=== PATIENT | male | born 1950 | race Caucasian/White ===

== ENCOUNTER → 2018-01-06 | Day surgery (SDC) | payer OTHER ==
--- NOTE | 2017-12-31 15:40 | RAD REPORT ---
EXAM DESCRIPTION: RAD - Chest Pa And Lat (2 Views) - 12/31/2017 3:35 pm CLINICAL HISTORY: preop Chest pain. COMPARISON: Chest Single View dated 07/26/2016; CHEST SINGLE VIEW dated 08/13/2012 FINDINGS: The lungs are clear. The heart is normal in size. No displaced fractures. Sternotomy wires present. IMPRESSION: No acute or concerning finding suspected.
[2017-12-31 16:05] LABS: Absolute Lymphocytes (CBC) 3.4 K/uL (0.7-4.9); Absolute Monocytes 0.7 K/uL (0.1-1.3); Absolute Neutrophil 3.5 K/uL (1.8-8.0); Basophils % 0.4 % (0-1.3); Eosinophils % 2.3 % (0-4.4); Hematocrit 42.1 % (39.6-49.0); Lymphocytes % 44.2 % (15.3-44.8); MCH 32.8 pg (27.0-35.0); MPV 7.4 fL (7.6-11.3); Monocytes % 8.4 % (3.3-12.3); RBC Red Blood Cell Count 4.29 M/uL (4.33-5.43)
[2017-12-31 16:23] LABS: Potassium 4.2 mmol/L (3.5-5.1)
[~2018-01-06] MED LIST: CEFAZOLIN/SWI 1gm 0 GM/0 ML SYR ONE; FENTANYL CITR 250 MCG/5 ML ONE; GLYCOPYRROLATE 0.2 MG/ML SYR ONE; LIDOCAINE 2% MPF 5 ML VIAL ONE; MIDAZOLAM HCL 2 MG/2 ML INJ ONE; PROPOFOL 200 MG/20 ML VIAL IV ONE; ROCURONIUM 50 MG/5 ML VIAL IV ONE; Ringers Lactate 1,000 ML IV ONE
[2018-01-06 07:09] LABS: Protime INR 1.89
== END | disposition home or self-care (01) ==
LOC: OR 06:28
PROVIDERS: ATTEND Surgery
DX: K43.2 Incisional hernia without obstruction or gangrene (principal); K42.9 Umbilical hernia without obstruction or gangrene; Z53.8 Procedure and treatment not carried out for other reasons
CPT/HCPCS: 36415; 71046; 80048; 85025; 85610; J0690; J2250

== ENCOUNTER 2018-01-08 11:25 | Day surgery (SDC) | payer OTHER ==
[2018-01-08 12:12] LABS: Protime INR 1.48
[2018-01-08] MEDS ORDERED: Ringers Lactate 1,000 ML IV ONE ×2 (12:27→14:08)
[2018-01-08] MEDS ORDERED: LIDOCAINE 2% MPF 5 ML VIAL ONE (12:35)
[2018-01-08] MEDS ORDERED: PROPOFOL 200 MG/20 ML VIAL IV ONE (12:35)
[2018-01-08] MEDS ORDERED: FENTANYL CITR 100 MCG/2 ML ONE (12:35)
[2018-01-08] MEDS ORDERED: MIDAZOLAM HCL 2 MG/2 ML INJ ONE (12:37)
[2018-01-08] MEDS ORDERED: NEOSTIGMINE 1 MG/ML -5 ML SYRINGE ONE (12:39)
[2018-01-08] MEDS ORDERED: GLYCOPYRROLATE 0.2 MG/ML SYR ONE (12:39)
[2018-01-08] MEDS ORDERED: ROCURONIUM 50 MG/5 ML VIAL IV ONE (12:39)
[2018-01-08] MEDS ORDERED: CEFAZOLIN/SWI 1gm 1 GM/10 ML SYR ONE (12:43)
--- NOTE | 2018-01-08 14:01 | P.BOP ---
Preoperative diagnosis: incisional tender ventral hernia, incarcerated umbilical hernia, Postoperative diagnosis: same Primary procedure: 1. Open repair of incisional tender ventral hernia with mesh Secondary procedure: 2. Open repair of incarcerated umbilical hernia Estimated blood loss: <10cc Specimen: hernia sac Findings: as above Complications: None Implants: ventralex mesh Transferred to: Recovery Room Condition: Good
[2018-01-08] MEDS: MEPERIDINE HCL 50 MG/ML AMP ONE ×4 (14:02→14:25)
[2018-01-08] MEDS ORDERED: HYDROCODONE/APAP 5/325 MG TAB ONE (15:24)
--- NOTE | 2018-01-09 01:46 | DS ---
Date of Discharge: 01/08/2018 Diagnoses: Incisional upper ventral tender hernia and incarcerated umbilical hernia. Procedures: 1.Open repair of incisional tender ventral hernia with mesh. 2.Open repair of incarcerated umbilical hernia. Disposition: Home. Activity: As tolerated. No heavy lifting. Discharge Instructions: Follow up in my office 1 week. Call for appointment, [phone]. Keep area d ry for 48 hours, then may shower. Use abdominal binder. The patient was advised about losing weight . The patient already has the anticoagulation protocols he is going to follow. He was advised to fo llow up also with primary doctor as soon as possible to follow up his INR [facility]. [facility] AYALA/ANTOINETTE Voice ID: [id number] Report ID: [id number]
--- NOTE | 2018-01-09 01:46 | OP ---
Date of Procedure: 01/08/2018 Surgeon: Marques Mclaughlin MD Preoperative Diagnoses: Incisional and tender upper ventral hernia and also incarcerated umbilical h ernia. Postoperative Diagnoses: Incisional and tender upper ventral hernia and also incarcerated umbilical hernia. Procedures: 1.Open repair of incisional upper tender ventral hernia with mesh. 2.Open repair of incarcerated umbilical hernia. Specimen: Hernia sac. Complications: None. Implant: Ventralex mesh. Indications: This is a case of a 67-year-old patient, comes to us with a 2 hernias, one in the upper ventral region and other one in the periumbilical region. The benefits, alternatives, and risks of repair of each one of them was fully explained which include, but are not limited to infection, bleed ing, damage to adjacent structures, anesthesia complication, recurrence, OK, and even . He also understands this may not relieve any symptoms. He might need more than one surgical intervention. He was explained the importance also of losing some weight and not doing heavy lifting. He was expla ined the pros and cons of mesh placement. That was discussed until all of the questions were answere d to his satisfaction, and he the allow me to use mesh. The patient is on anticoagulation using Coum huma and Lovenox cross over. He has been holding that on Thursday. We have to hold the case since he is still anticoagulated today. He is better. So, we proceed with the surgery. Description Of Procedure: The patient was brought to the operating room, placed in supine position. Anesthesia was done without complication. Abdominal area was prepped and draped in a sterile fashio n. Local anesthesia was applied, followed by sharp incision of the skin in the ventral region. The patient has a previous incision in that area. So, we reopened that area, removed the scar tissue, op ened the hernia sac, found incarcerated omentum that was suture ligated. The rest of the omentum ret racted back into the abdominal cavity after fully inspected and making sure there was no bleeding. T he hernia sac was removed; and then due to the quality of the edges and inability to close that compl etely, we put a Ventralex mesh intraperitoneally with the strap coming through the incision. That me sh was secured to the fascia using #1 Prolene in multiple locations. The straps were removed. Then, the fascia was closed in a [id number] fashion with #1 Prolene multiple times. The area was irr igated. Subcutaneous incision was closed with 3-0 chromic and skin with alverto. The periumbilical region was also fixed at the same time. We made a periumbilical incision. The incision was carried down to fascia. The hernia sac was identified and removed from umbilical skin. Incarcerated omentum was removed from the umbilical skin; and after fully inspecting and making sure there was no bleedin g, was later retracted back into the abdominal cavity. The hernia sac was removed, and the fascia ed ges looked strong enough to hold stitches. So, we did not have to use mesh. We just closed this sim ple with a [id number] fashion #1 Vicryl multiple times. The patient tolerated the procedure wel l. The area was closed with 3-0 chromic and alverto. The patient was sent to recovery in stable con dition. AYALA/ANTOINETTE Voice ID: [id number] Report ID: [id number]
== END 2018-01-08 16:23 | disposition home or self-care (01) ==
LOC: OR 11:25
PROVIDERS: ATTEND Surgery
PROC: 0WUF0JZ Supplement Abdominal Wall with Synthetic Substitute, Open Approach (ICD-10-PCS; principal; 2018-01-08 12:30)
PROC: 0WQF0ZZ Repair Abdominal Wall, Open Approach (ICD-10-PCS; 2018-01-08 12:30)
DX: K43.2 Incisional hernia without obstruction or gangrene (principal); K42.0 Umbilical hernia with obstruction, without gangrene; I10 Essential (primary) hypertension
CPT/HCPCS: 36415; 85610; 85730; 88302; J0690; J2175; J2250; J2710; J3010

== ENCOUNTER 2018-01-10 02:29 | Inpatient (IN) | payer OTHER ==
[2018-01-10] MEDS ORDERED: NA CHLORIDE 0.9% 1,000 ML ONE ×3 (02:54→03:40)
[2018-01-10] MEDS ORDERED: NA CHLORIDE 0.9% 100 ML IV ONE ×2 (03:42→03:44)
[2018-01-10 03:45] LABS: Absolute Lymphocytes (CBC) 2.2 K/uL (0.7-4.9); Absolute Monocytes 0.6 K/uL (0.1-1.3); Basophils % 0.3 % (0-1.3); Hematocrit 30.5 % (39.6-49.0); MCH 32.9 pg (27.0-35.0); MCV 100.4 fL (80-100); MPV 8.9 fL (7.6-11.3); Monocytes % 4.9 % (3.3-12.3); Protime INR 1.85; RBC Red Blood Cell Count 3.03 M/uL (4.33-5.43)
[2018-01-10] MEDS ORDERED: FENTANYL CITR 100 MCG/2 ML ONE (04:26)
[2018-01-10] MEDS ORDERED: NA CHLORIDE 0.9% 200 ML IV ONE (04:33)
[2018-01-10 04:45] LABS: ALT/SGPT 25 U/L (12-78); AST/SGOT 26 U/L (15-37); Albumin 3.4 g/dL (3.4-5.0); Alkaline Phosphatase 61 U/L (45-117); BUN Blood Urea Nitrogen 23 mg/dL (7-18); Bicarbonate 17 mmol/L (21-32); Bilirubin Direct 0.2 mg/dL (0-0.2); Bilirubin Total 0.8 mg/dL (0.2-1.0); Glucose Level 232 mg/dL (74-106); Lipase 239 U/L (73-393); Magnesium 2.6 mg/dL (1.8-2.4); NT PRO-BNP 563 pg/mL (<125); Protein, Total 6.8 g/dL (6.4-8.2); Sodium Level 137 mmol/L (136-145); Troponin (Emerg Dept Use Only) < 0.02 ng/mL (0.0-0.045)
[2018-01-10] MEDS ORDERED: ONDANSETRON 4 MG/2 ML VIAL ONE ×2 (05:02→06:26)
[2018-01-10] MEDS ORDERED: FENTANYL CITR 100 MCG/2 ML IV PRN ×3 (05:08→09:25)
--- NOTE | 2018-01-10 05:13 | ER ---
Nurse's Notes [facility] Name: Abdirizak Diaz Age: 67 yrs Sex: Male : 1950 Arrival Date: 01/10/2018 Time: 02:30 Bed 4 Private MD: Savage Kelsey H Diagnosis: Hemoperitoneum Presentation: 01/10 02:32 Presenting complaint: states: that pt started to have abd pain at midnight. Has fc also been vomiting brown liquid since yesterday and is pale/clammy. Dr Mclaughlin did hernia repair on 01/08. Pts last BM was morning of 01/08. Transition of care: patient was not received from another setting of care. Onset of symptoms was January 10, 2018 at 00:00. Risk Assessment: Do you want to hurt yourself or someone else? Patient reports no desire to harm self or others. Initial Sepsis Screen: Does the patient meet any 2 criteria? No. Patient's initial sepsis screen is negative. Does the patient have a suspected source of infection? No. Patient's initial sepsis screen is negative. Care prior to arrival: None. 02:32 Method Of Arrival: Wheelchair 02:32 Acuity: ERIBERTO 2 fc Historical: - Allergies: 02:53 Aspirin; 02:53 Keppra; fc - Home Meds: 02:53 Randolph 5-325 mg Oral tab 2 tabs every 4 hours [Active]; Coumadin Oral 1 mg on fc Tues/Thurs/Sat/Sun and 2 mg on Mon/Wed/Fri [Active]; 04:48 Lovenox 80 mg/0.8 mL subcutaneous syrg every 12 hours [Active]; Vimpat 200 mg oral tab fc 1 tab 2 times per day [Active]; Lamictal 200 mg oral tab 1 tab 2 times per day [Active]; Avapro Oral 75 mg daily [Active]; finasteride 5 mg oral tab 1 tab once daily [Active]; simvastatin 80 mg Oral tab daily [Active]; Claritin 10 mg Oral tab 1 tab once daily [Active]; - PMHx: 02:53 High Cholesterol; Seizures; Hypertension; fc - PSHx: 02:53 MECHANICAL HEART VALVE; Hernia repair; fc - Immunization history:: Last tetanus immunization: up to date Flu vaccine is up to date. - Social history:: Smoking status: Patient/guardian denies using tobacco, Patient/guardian denies using alcohol, street drugs. - Ebola Screening: : Patient negative for fever greater than or equal to 101.5 degrees Fahrenheit, and additional compatible Ebola Virus Disease symptoms Patient denies exposure to infectious person Patient denies travel to an Ebola-affected area in the 21 days before illness onset. Screenin:32 Abuse screen: Denies threats or abuse. Nutritional screening: No deficits noted. fc Tuberculosis screening: No symptoms or risk factors identified. Fall Risk Fall in past 12 months (25 points). Secondary diagnosis (15 points) seizures, IV access (20 points). Ambulatory Aid- None/Bed Rest/Nurse Assist (0 pts). Gait- Weak (10 pts.). Mental Status- Overestimates/Forgets Limitations (15 pts.). Total Norman Fall Scale indicates High Risk Score (45 or more points). Fall prevention measures have been instituted. Side Rails Up X 2 Placed Close to Nursing Station Frequent Obs/Assessments Occuring Family Present and informed to notify staff if the need to leave the bedside As available patient and family educated on Fall Prevention Program and Strategies. Assessment: 02:35 General: Appears distressed, uncomfortable, Behavior is appropriate for age, agitated. aa1 Pain: Complains of pain in abdomen Pain currently is 10 out of 10 on a pain scale. Quality of pain is described as pressure, sharp, Pain began 3 hours ago. Is continuous. Neuro: Level of Consciousness is awake, alert, obeys commands, Oriented to person, place, time, situation, Moves all extremities. Speech is normal. Cardiovascular: Denies chest pain, shortness of breath, Heart tones S1 S2 present Rhythm is regular. Respiratory: Airway is patent Respiratory effort is even, unlabored, Respiratory pattern is tachypnea. GI: Abdomen is distended, Bowel sounds diminished in abdomen diffusely Abdomen is tender to palpation X 4 quads. Reports lower abdominal pain, upper abdominal pain, nausea, vomiting. : No signs and/or symptoms were reported regarding the genitourinary system. EENT: No signs and/or symptoms were reported regarding the EENT system. Derm: Skin is intact, is healthy with good turgor, Skin is clammy, Skin is pale, Skin temperature is cool. Musculoskeletal: Circulation, motion, and sensation intact. Capillary refill is sluggish, in bilateral fingers. toes. 03:15 Reassessment: Patient appears in no apparent distress at this time. No changes from aa1 previously documented assessment. Patient and/or family updated on plan of care and expected duration. Pain level reassessed. Pt consented to receive blood products at this time. Will initiate transfusion once blood product received. 04:00 Reassessment: Patient appears in no apparent distress at this time. Patient and/or aa1 family updated on plan of care and expected duration. Pain level reassessed. Pt skin color improved, no longer cool \\T\\ clammy. Appears less uncomfortable. Dr. Hoskins at bedside assessing pt Patient states symptoms have improved. 04:45 Reassessment: Patient appears in no apparent distress at this time. No changes from aa1 previously documented assessment. Patient and/or family updated on plan of care and expected duration. Pain level reassessed. \\T\\ son remain at bedside. FFP \\T\\ platelets infusing. Awaiting bed assignment. 05:34 Reassessment: Patient appears in no apparent distress at this time. No changes from aa1 previously documented assessment. Patient and/or family updated on plan of care and expected duration. Pain level reassessed. Pt to be admitted to ICU; awaiting bed assignment. Vital Signs: 02:32 BP 83 / 49; Pulse 84; Resp 18; Temp 97.5; Pulse Ox 94% on R/A; Weight 99.79 kg (R); fc Height 5 ft. 11 in. (180.34 cm) (R); Pain 01/06; 02:48 BP 69 / 48; Pulse 83; Resp 20; Pulse Ox 95% on R/A; aa1 03:15 BP 89 / 59; Pulse 92; Resp 26; Pulse Ox 90% on R/A; aa1 03:57 BP 92 / 59 LA Supine (auto/reg); Pulse 84 MON; Resp 30 S; Pulse Ox 97% on 3 lpm NC; aa1 Pain 10; 04:20 BP 102 / 57; Pulse 80; Resp 28; Temp 97.0; Pulse Ox 95% on 3 lpm NC; aa1 04:45 BP 87 / 58; Pulse 78; Resp 24; Temp 97.1; Pulse Ox 94% on 3 lpm NC; aa1 05:05 BP 91 / 61; Pulse 81; Resp 22; Temp 97.2; Pulse Ox 94% on 3 lpm NC; aa1 05:26 BP 93 / 61; Pulse 78; Resp 20; Temp 97.2; Pulse Ox 96% on 3 lpm NC; aa1 06:08 BP 111 / 74; Pulse 78; Resp 20; Pulse Ox 95% on 3 lpm NC; aa1 06:34 BP 94 / 68; Pulse 84; Resp 20; Temp 98.0; Pulse Ox 95% on 3 lpm NC; aa1 07:20 BP 115 / 74; Pulse 85; Resp 26 S; Temp 98.3(C); Pulse Ox 96% on 3 lpm NC; sg 02:32 Body Mass Index 30.68 (99.79 kg, 180.34 cm) fc 02:48 MD at bedside and aware of v/s aa1 ED Course: 02:30 Patient arrived in ED. am2 02:31 Savage Kelsey DO is Private Physician. am2 02:32 Arm band placed on Patient placed in an exam room, on a stretcher. fc 02:32 Patient has correct armband on for positive identification. Placed in gown. Bed in low fc position. Call light in reach. Side rails up X2. personnel monitor on. Pulse ox on. NIBP on. 02:32 No provider procedures requiring assistance completed. fc 02:33 Thomas Vaughn MD is Attending Physician. gs 02:40 Inserted saline lock: 20 gauge in right antecubital area, using aseptic technique. fc ,using aseptic technique. by [employer]. 02:42 Inserted saline lock: 18 gauge in left antecubital area, using aseptic technique. fc ,using aseptic technique. per Annmarie MORALES. 02:45 EKG done, by ED staff, reviewed by Thomas Vaughn MD. fc 02:48 Triage completed. fc 03:11 X-ray completed. Portable x-ray completed in exam room. Patient tolerated procedure mh1 poorly. 03:11 Chest Single View In Process Unspecified. EDMS 03:29 Stone Protocol In Process Unspecified. EDMS 03:34 Note: Spoke with Kang at [facility] to ask for a "STAT read." He advised me that as soon as kw1 the images complete transmitting the study will be read.. 03:50 Oxygen administration via nasal cannula \\T\\ 3L/min. aa1 04:10 Rosales cath inserted, using sterile technique, 16 Fr., by injection molding process technician, balloon inflated, to aa1 gravity drainage, urine specimen collected. returned dawna urine. 04:35 One-on-one care X 120 minutes. aa1 05:08 Annmarie Lim, RN is Primary Nurse. aa1 05:12 Marques Mclaughlin MD is Hospitalizing Provider. gs 05:46 Patient admitted, IV remains in place. aa1 Administered Medications: 02:54 Drug: NS 0.9% 1000 ml Route: IV; Rate: 1 bolus; Site: right antecubital; jd3 03:30 Follow up: IV Status: Completed infusion aa1 03:10 Drug: NS 0.9% 1000 ml Route: IV; Rate: 1 bolus; Site: left antecubital; aa1 03:40 Follow up: IV Status: Completed infusion aa1 04:25 Drug: fentaNYL (PF) 25 mcg Route: IVP; Site: left antecubital; aa1 05:45 Follow up: Response: No adverse reaction; Pain is unchanged, physician notified aa1 05:00 Drug: Zofran 4 mg Route: IVP; Site: right antecubital; aa1 06:10 Follow up: Response: No adverse reaction; Nausea unchanged aa1 06:23 Drug: fentaNYL (PF) 50 mcg Route: IVP; Site: left antecubital; aa1 06:24 Drug: Zofran 4 mg Route: IVP; Site: left antecubital; aa1 Outcome: 05:13 Decision to Hospitalize by Provider. 07:40 Admitted to ICU family with patient, via stretcher, room 1, with oxygen, with chart, sg Report called to Estefani MORALES 07:40 Condition: stable 07:40 Instructed on the need for admit, safety practices, Demonstrated understanding of instructions. 07:56 Patient left the ED. iw Signatures: Dispatcher [employer] EDMS Chuckie Gaffney RN RN sg Annmarie Lim, RN RN aa1 Mitzy Garrison 1 Saba Alvarado RN RN fc Williams, Irene, RN RN Baldemar Marino ds4 Zonia Herring am2 Thomas Vaughn MD MD Doug Ruvalcaba RN RN jd3 Wilhelm, Kimberly kw1 Corrections: (The following items were deleted from the chart) 02:51 02:40 Inserted saline lock: 22 gauge in right antecubital area, using aseptic fc technique. ,using aseptic technique. by [employer] fc 02:59 02:32 BP 83 / 49; Pulse 84bpm; Resp 18bpm; Pulse Ox 94% RA; 99.79 kg Reported; Height 5 fc ft. 11 in. Reported; BMI: 30.6; Pain 10/10; fc 04:48 02:53 Home Meds: Lovenox Sub-Q every 12 hours; fc fc 04:48 02:53 Home Meds: Vimpat oral oral; [facility] 04:48 02:53 Home Meds: Lamictal Oral; [facility] 05:33 03:57 BP 92 / 59 Supine Auto L Arm Regular; Pulse 84bpm; MonitorResp 30bpm; aa1 Spontaneous; Pulse Ox 97% RA; Pain 10/10; ds4 06:41 04:00 Reassessment: Patient appears in no apparent distress at this time. Patient aa1 and/or family updated on plan of care and expected duration. Pain level reassessed. Pt skin color improved, no longer cool \\T\\ clammy. Appears less uncomfortable Patient states symptoms have improved. aa1
--- NOTE | 2018-01-10 05:13 | EDPHYS ---
Physician Documentation [facility] Name: Abdirizak Diaz Age: 67 yrs Sex: Male : 1950 Arrival Date: 01/10/2018 Time: 02:30 Bed 4 Private MD: Savage Kelsey H ED Physician Thomas Vaughn HPI: 01/10 05:00 This 67 yrs old Male presents to ER via Wheelchair with complaints of gs Abdominal Pain, Vomiting. 05:00 The patient presents with abdominal pain abdominal distention. Onset: The gs symptoms/episode began/occurred yesterday. Associated signs and symptoms: Pertinent positives: nausea and vomiting. The symptoms are described as crampy, sharp. Modifying factors: The symptoms are alleviated by nothing, the symptoms are aggravated by nothing. Severity of pain: At its worst the pain was severe in the emergency department the pain is unchanged. The patient has not experienced similar symptoms in the past. surgery dr prieto Thursday hernia repair, on lovenox for heart valve restarted coumadin. now with low bp and ab pain. Historical: - Allergies: 02:53 Aspirin; fc 02:53 Keppra; fc - Home Meds: 02:53 Custer 5-325 mg Oral tab 2 tabs every 4 hours [Active]; Coumadin Oral 1 mg on fc Tues/Thurs/Sat/Sun and 2 mg on Mon/Wed/Fri [Active]; 04:48 Lovenox 80 mg/0.8 mL subcutaneous syrg every 12 hours [Active]; Vimpat 200 mg oral tab fc 1 tab 2 times per day [Active]; Lamictal 200 mg oral tab 1 tab 2 times per day [Active]; Avapro Oral 75 mg daily [Active]; finasteride 5 mg oral tab 1 tab once daily [Active]; simvastatin 80 mg Oral tab daily [Active]; Claritin 10 mg Oral tab 1 tab once daily [Active]; - PMHx: 02:53 High Cholesterol; Seizures; Hypertension; fc - PSHx: 02:53 MECHANICAL HEART VALVE; Hernia repair; fc - Immunization history:: Last tetanus immunization: up to date Flu vaccine is up to date. - Social history:: Smoking status: Patient/guardian denies using tobacco, Patient/guardian denies using alcohol, street drugs. - Ebola Screening: : Patient negative for fever greater than or equal to 101.5 degrees Fahrenheit, and additional compatible Ebola Virus Disease symptoms Patient denies exposure to infectious person Patient denies travel to an Ebola-affected area in the 21 days before illness onset. ROS: 05:00 All other systems are negative. gs Exam: 05:00 Head/Face: Normocephalic, atraumatic. Eyes: Pupils equal round and reactive to light, gs extra-ocular motions intact. Lids and lashes normal. Conjunctiva and sclera are non-icteric and not injected. Cornea within normal limits. Periorbital areas with no swelling, redness, or edema. ENT: Nares patent. No nasal discharge, no septal abnormalities noted. Tympanic membranes are normal and external auditory canals are clear. Oropharynx with no redness, swelling, or masses, exudates, or evidence of obstruction, uvula midline. Mucous membranes moist. Neck: Trachea midline, no thyromegaly or masses palpated, and no cervical lymphadenopathy. Supple, full range of motion without nuchal rigidity, or vertebral point tenderness. No Meningismus. Chest/axilla: Normal chest wall appearance and motion. Nontender with no deformity. No lesions are appreciated. 05:00 Cardiovascular: Regular rate and rhythm with a normal S1 and S2. No gallops, murmurs, or rubs. Normal PMI, no JVD. No pulse deficits. 05:00 Respiratory: Lungs have equal breath sounds bilaterally, clear to auscultation and percussion. No rales, rhonchi or wheezes noted. No increased work of breathing, no retractions or nasal flaring. Back: No spinal tenderness. No costovertebral tenderness. Full range of motion. MS/ Extremity: Pulses equal, no cyanosis. Neurovascular intact. Full, normal range of motion. Neuro: Awake and alert, GCS 15, oriented to person, place, time, and situation. Cranial nerves II-XII grossly intact. Motor strength 5/5 in all extremities. Sensory grossly intact. Cerebellar exam normal. Normal gait. 05:00 Constitutional: The patient appears alert, awake, in obvious distress, severely distressed. 05:00 Constitutional: The patient appears pale. 05:00 ECG was reviewed by the Attending Physician. 05:00 Abdomen/GI: Inspection: distension, that is severe, Palpation: moderate abdominal tenderness, in all quadrants, rebound tenderness, is appreciated in the right lower quadrant and left lower quadrant. 05:00 Skin: Appearance: Color: pale. Vital Signs: 02:32 BP 83 / 49; Pulse 84; Resp 18; Temp 97.5; Pulse Ox 94% on R/A; Weight 99.79 kg (R); fc Height 5 ft. 11 in. (180.34 cm) (R); Pain 10; 02:48 BP 69 / 48; Pulse 83; Resp 20; Pulse Ox 95% on R/A; aa1 03:15 BP 89 / 59; Pulse 92; Resp 26; Pulse Ox 90% on R/A; aa1 03:57 BP 92 / 59 LA Supine (auto/reg); Pulse 84 MON; Resp 30 S; Pulse Ox 97% on 3 lpm NC; aa1 Pain 10/10; 04:20 BP 102 / 57; Pulse 80; Resp 28; Temp 97.0; Pulse Ox 95% on 3 lpm NC; aa1 04:45 BP 87 / 58; Pulse 78; Resp 24; Temp 97.1; Pulse Ox 94% on 3 lpm NC; aa1 05:05 BP 91 / 61; Pulse 81; Resp 22; Temp 97.2; Pulse Ox 94% on 3 lpm NC; aa1 05:26 BP 93 / 61; Pulse 78; Resp 20; Temp 97.2; Pulse Ox 96% on 3 lpm NC; aa1 06:08 BP 111 / 74; Pulse 78; Resp 20; Pulse Ox 95% on 3 lpm NC; aa1 06:34 BP 94 / 68; Pulse 84; Resp 20; Temp 98.0; Pulse Ox 95% on 3 lpm NC; aa1 07:20 BP 115 / 74; Pulse 85; Resp 26 S; Temp 98.3(C); Pulse Ox 96% on 3 lpm NC; sg 02:32 Body Mass Index 30.68 (99.79 kg, 180.34 cm) 02:48 MD at bedside and aware of v/s aa1 Procedures: 05:00 Ultrasound: Type: Fast exam, performed by the emergency department physician, + for gs fluid. MDM: 02:47 Patient medically screened. gs 05:00 Differential diagnosis: AAA, bowel obstruction, Peritonitis, hemoperitoneum. Data gs reviewed: vital signs, nurses notes, old medical records, lab test result(s), EKG, radiologic studies. Counseling: I had a detailed discussion with the patient and/or guardian regarding: the historical points, exam findings, and any diagnostic results supporting the discharge/admit diagnosis, the need for further work-up and treatment in the hospital. Physician consultation: Marques Prieto MD regarding admission, patient's condition, would like consultation with saykristen he will call dr viveros to come see pt in ed.. 01/10 02:49 Order name: Basic Metabolic Panel 01/10 02:49 Order name: CBC with Diff 01/10 02:49 Order name: LFT's 01/10 02:49 Order name: Magnesium 01/10 02:49 Order name: NT PRO-BNP 01/10 02:49 Order name: PT-INR; Complete Time: 04:09 01/10 02:49 Order name: Troponin (emerg Dept Use Only); Complete Time: 05:13 01/10 02:49 Order name: Lipase; Complete Time: 05:13 01/10 02:49 Order name: Blood Culture* 01/10 02:49 Order name: Lactate; Complete Time: 04:09 01/10 03:04 Order name: Type And Screen 01/10 03:18 Order name: Basic Metabolic Panel; Complete Time: 05:13 [facility] 01/10 03:18 Order name: CBC with Automated Diff; Complete Time: 04:09 ED[facility] 01/10 03:18 Order name: Liver (Hepatic) Function; Complete Time: 05:13 [facility] 01/10 03:18 Order name: Magnesium; Complete Time: 05:13 ED[facility] 01/10 03:18 Order name: NT PRO-BNP; Complete Time: 05:13 [facility] 01/10 03:31 Order name: Packed RBC Leukored -1 [facility] 01/10 03:31 Order name: RBC Leukored Pheresis [facility] 01/10 03:55 Order name: Fresh Frozen Plasma [facility] 01/10 03:55 Order name: Platelets, Leukored Pheresis [facility] 01/10 03:56 Order name: ABO/RH no charge; Complete Time: 04:09 [facility] 01/10 05:48 Order name: Hemoglobin aa1 01/10 05:48 Order name: Hematocrit aa1 01/10 06:09 Order name: CBC with Diff ms 01/10 06:09 Order name: PT-INR ms 01/10 06:09 Order name: Lipase ms 01/10 06:10 Order name: Ptt, Activated ms 01/10 06:16 Order name: Miscellaneous Test Lab EDMS 01/10 06:45 Order name: CBC with Automated Diff ED[facility] 01/10 07:07 Order name: Comprehensive Metabolic Panel ED[facility] 01/10 02:49 Order name: EKG; Complete Time: 03:19 01/10 02:49 Order name: Cardiac monitoring; Complete Time: 02:54 gs 01/10 02:49 Order name: EKG - Nurse/Tech; Complete Time: 02:54 gs 01/10 02:49 Order name: IV Saline Lock; Complete Time: 02:54 01/10 02:49 Order name: Labs collected and sent; Complete Time: 02:55 01/10 02:49 Order name: O2 Per Protocol; Complete Time: 02:54 01/10 02:49 Order name: O2 Sat Monitoring; Complete Time: 02:54 01/10 02:49 Order name: Oxygen; Complete Time: 02:53 01/10 03:09 Order name: Chest Single View EDMS 01/10 03:12 Order name: Stone Protocol EDMS 01/10 04:34 Order name: CONS Physician Consult EDMS 01/10 07:07 Order name: Lipase EDMS 01/10 07:14 Order name: Lactate Sepsis 2 HR Follow-up EDMS 01/10 07:30 Order name: Protime (+INR) EDMS 01/10 07:30 Order name: PTT, Activated Partial Thromb EDMS EC:00 Rate is 82 beats/min. Rhythm is regular. [place] interval is normal. QRS interval is normal. gs T waves are Flattened. No ST changes noted. Clinical impression: NSR w/ Non-specific ST/T Changes and Abnormal EKG without significant change. Interpreted by me. Administered Medications: 02:54 Drug: NS 0.9% 1000 ml Route: IV; Rate: 1 bolus; Site: right antecubital; jd3 03:30 Follow up: IV Status: Completed infusion aa1 03:10 Drug: NS 0.9% 1000 ml Route: IV; Rate: 1 bolus; Site: left antecubital; aa1 03:40 Follow up: IV Status: Completed infusion aa1 04:25 Drug: fentaNYL (PF) 25 mcg Route: IVP; Site: left antecubital; aa1 05:45 Follow up: Response: No adverse reaction; Pain is unchanged, physician notified aa1 05:00 Drug: Zofran 4 mg Route: IVP; Site: right antecubital; aa1 06:10 Follow up: Response: No adverse reaction; Nausea unchanged aa1 06:23 Drug: fentaNYL (PF) 50 mcg Route: IVP; Site: left antecubital; aa1 06:24 Drug: Zofran 4 mg Route: IVP; Site: left antecubital; aa1 Disposition: 01/10/18 05:13 Hospitalization ordered by Marques Prieto for Inpatient Admission. Preliminary diagnosis is Hemoperitoneum. - Bed requested for Intensive Care Unit. - Status is Inpatient Admission. iw - Condition is Stable. - Problem is new. - Symptoms have improved. UTI on Admission? No Critical care time excluding procedures: 05:00 Critical care time: Bedside Care: 10 minutes, Consultation: 10 minutes, Family gs Intervention: 10 minutes. Total time: 30 minutes Signatures: Dispatcher [employer] EDMS Annmarie Lim RN RN aa1 Saba Alvarado RN RN fc Williams, Irene, RN RN iw Solis, Maria ms Starr, Gregory, MD MD gs Davies, Jonathon, RN RN jd3 Corrections: (The following items were deleted from the chart) 03:25 03:19 Chest Single View+RAD.RAD.BRZ ordered. EDMS EDMS 03:37 03:19 Stone Protocol+CT.RAD.BRZ ordered. EDMS EDMS 04:48 02:53 Home Meds: Lovenox Sub-Q every 12 hours; fc fc 04:48 02:53 Home Meds: Vimpat oral oral; fc fc 04:48 02:53 Home Meds: Lamictal Oral; fc fc 06:44 05:13 Hospitalization Ordered by Marques Prieto MD for Inpatient Admission. Preliminary ms diagnosis is Hemoperitoneum. Bed requested for Intensive Care Unit. Status is Inpatient Admission. Condition is Stable. Problem is new. Symptoms have improved. UTI on Admission? No. gs 07:56 06:44 01/10/2018 05:13 Hospitalization Ordered by Marques Prieto MD for Inpatient iw Admission. Preliminary diagnosis is Hemoperitoneum. Bed requested for Intensive Care Unit. Status is Inpatient Admission. Condition is Stable. Problem is new. Symptoms have improved. UTI on Admission? No. ms
[2018-01-10 06:43] LABS: Absolute Lymphocytes (CBC) 1.4 K/uL (0.7-4.9); Absolute Monocytes 0.9 K/uL (0.1-1.3); Absolute Neutrophil 11.1 K/uL (1.8-8.0); Basophils % 0.1 % (0-1.3); Hematocrit 28.9 % (39.6-49.0); Lymphocytes % 10.3 % (15.3-44.8); MCH 32.5 pg (27.0-35.0); MCV 95.2 fL (80-100); MPV 7.7 fL (7.6-11.3); Monocytes % 6.7 % (3.3-12.3); RBC Red Blood Cell Count 3.04 M/uL (4.33-5.43)
[2018-01-10 06:58] LABS: Protime INR 1.59
[2018-01-10 07:07] LABS: Albumin 3.2 g/dL (3.4-5.0); Bilirubin Total 0.7 mg/dL (0.2-1.0); Potassium 4.5 mmol/L (3.5-5.1); Protein, Total 6.3 g/dL (6.4-8.2)
--- NOTE | 2018-01-10 08:07 | P.CNS ---
Date of Consult: 01/10/18 Reason for Consult: Medical management Requesting Physician: Jessee Hoskins Chief Complaint: HEMOPERITONEUM History of Present Illness: Patient is a 67-year-old gentleman who came into the hospital with a hemoperitoneum. Patient recently had a hernia repair times to by General surgery. Afterwards patient had pain out of proportion to what he was expecting. He came into the emergency room and was told that this was most likely related to the hemoperitoneum. Patient is on fentanyl but will need more aggressive intervention. Will continue with aggressive IV hydration. Will need to continue monitoring H&H. We have given 2 units of packed red blood cells along with FFPs and platelet count. Hopefully this addresses the bleeding and we can work on stabilizing the patient and her care. Continue with prior treatments as listed on medications. Allergies levetiracetam [From Kera] Allergy (Verified 01/10/18 06:11) doesnt work aspirin Adverse Reaction (Intermediate, Verified 01/10/18 06:11) TAKES COUMADIN Home Medications: Ascorbic Acid [Vitamin C] 1,000 mg PO DAILY 12/31/17 Cholecalciferol (Vitamin D3) [Vitamin D3] 2,000 unit PO DAILY 12/31/17 Codeine/APAP [Tylenol W/Codeine #3 tab] 1 tab PO Q6HP PRN 12/31/17 Cyanocobalamin [Vitamin B-12] 3,000 mcg PO DAILY 12/31/17 Irbesartan [Avapro] 75 mg PO [id number] 12/31/17 Lacosamide [Vimpat] 200 mg PO BID 12/31/17 Lamotrigine [Lamotrigine Odt] 200 mg PO BID 12/31/17 Loratadine [Claritin] 10 mg PO DAILY 12/31/17 Simvastatin 40 mg PO DAILY 12/31/17 Ubidecarenone [Co Q-10] 200 mg PO DAILY 12/31/17 Warfarin Sodium [Coumadin] 1 mg PO SEECOM 12/31/17 Warfarin Sodium [Coumadin] 2 mg PO M,W,F 12/31/17 Hydrocodone/Acetaminophen [Vicodin 5-325 mg Tablet] 1 each PO Q4H PRN #30 tablet 01/08/18 - Past Medical/Surgical History -: Hypertension -: AV -: Dyslipidemia -: Seizures -: hernia repair -: AV replacement - Family History Father Family History: Reviewed- Non-Contributory - Social History Smoking Status: Never smoker Alcohol use: No CD- Drugs: No Review of Systems 10-point ROS is otherwise unremarkable Physical Examination Temp Pulse Resp BP Pulse Ox 97.5 F 84 18 83/49 L 01/10/18 02:32 01/10/18 02:32 01/10/18 02:32 01/10/18 02:32 General: Alert, In no apparent distress, Oriented x3 HEENT: Atraumatic, PERRLA, Mucous membr. moist/pink, EOMI, Sclerae nonicteric Neck: Supple, 2+ carotid pulse no bruit, No LAD, Without JVD or thyroid abnormality Respiratory: Clear to auscultation bilaterally, Normal air movement Cardiovascular: Regular rate/rhythm, Normal S1 S2, Other (S2 click) Gastrointestinal: Absent bowel sounds, Distended, Tenderness, Rebound Musculoskeletal: No clubbing, No swelling, No tenderness Integumentary: No rashes Neurological: Normal speech, Normal tone, Sensation intact, Cranial nerves 3-12 intact, Normal affect, Abnormal gait, Abnormal strength Lymphatics: No axilla or inguinal lymphadenopathy Laboratory Data (last 24 hrs) 01/10/18 03:10: PT 22.0 H, INR 1.85 01/10/18 03:10: WBC 12.9 H D, Hgb 10.0 L D, Hct 30.5 L D, Plt Count 254 01/10/18 03:10: Sodium 137, Potassium 4.0, BUN 23 H, Creatinine 2.60 H D, Glucose 232 H, Magnesium 2.6 H, Total Bilirubin 0.8, AST 26, ALT 25, Alkaline Phosphatase 61, Lipase 239 - Problems (1) Hemoperitoneum Current Visit: Yes Status: Acute (2) H/O hernia repair Current Visit: Yes Status: Acute (3) History of aortic valve replacement with metallic valve Current Visit: Yes Status: Acute (4) CAD (coronary artery disease) Current Visit: Yes Status: Acute (5) Dyslipidemia Current Visit: Yes Status: Acute (6) Seizures Current Visit: Yes Status: Acute Conclusions/ Impression: Plan: 1. Continue with IV hydration and PPI drip 2. Continue with IV antibiotics 3. Continue with pain control 4. NPO 5. Cardiology consultation as well 6. Serial H&H, and we will monitor INR and additional labs 7. Echocardiogram 8. GI and DVT prophylaxis Do not advise giving any blood thinner until we know that bleeding has stopped and at that time will discuss with Cardiology when to resume anti coagulation. Critical Care: Yes Time Spent Managing Pts care (In Minutes): 55
[2018-01-10 09:25] LABS: Hematocrit 28.5 % (39.6-49.0)
[2018-01-10] MEDS ORDERED: ONDANSETRON 4 MG/2 ML VIAL IV PRN ×2 (09:25→10:57)
[2018-01-10 10:21] LABS: Urine Appearance TURBID; Urine Bilirubin NEGATIVE (NEG); Urine Blood 3+ (NEG); Urine Color DK YELLOW; Urine Glucose NEGATIVE (NEG); Urine Protein 2+ (NEG); Urine Specific Gravity 1.025 (1.005-1.030); Urine Urobilinogen 0.2 mg/dL (0.2-1.0)
--- NOTE | 2018-01-10 10:29 | RAD REPORT ---
EXAM DESCRIPTION: CT - Stone Protocol - 01/10/2018 6:27 am CLINICAL HISTORY: Flank pain. pain COMPARISON: No comparisons TECHNIQUE: Axial images were obtained without oral or IV contrast. Lack of contrast limits solid org an and vascular assessment. The [id number] spans the entirety of the system partially obscuring uppermost abdomen and lung bases. Coronal reformatted images were obtained and reviewed. All CT scans are performed using dose optimization technique as appropriate and may include automated exposure control or mA/KV adjustment according to patient size. FINDINGS: Subsegmental atelectasis is present in both lung bases, greater on the right. Imaged portions of the liver and spleen show no suspicious findings on non-contrast imaging. The panc reas and adrenal glands are normal. No pathologic lymphadenopathy in the abdomen or pelvis. No urinary tract stones or obstructive uropathy. Bilateral renal cysts are suspected. Moderate high density fluid is seen in the and pelvis compatible with hemoperitoneum. No free air, anselmo wel obstruction or abscess.Postsurgical changes of a ventral hernia repair noted in the subxiphoid re gion small gas and fluid collection present. No significant bony abnormality. IMPRESSION: Moderate hemoperitoneum.
--- NOTE | 2018-01-10 10:30 | RAD REPORT ---
EXAM DESCRIPTION: RAD - Chest Single View - 01/10/2018 3:12 am CLINICAL HISTORY: ABD DISTENSION Chest pain. COMPARISON: Chest Pa And Lat (2 Views) dated 12/31/2017; Chest Single View dated 07/26/2016; CHEST SIN GLE VIEW dated 08/13/2012 FINDINGS: Portable technique limits examination quality. Subsegmental atelectasis is present both lung bases. Heart is upper limit normal in size. No displace d fractures.Sternotomy wires are present. IMPRESSION: Subsegmental atelectasis in both lung bases.
[2018-01-10 10:36] LABS: Urine Microscopic Reflex ORDER UMIC
[2018-01-10 10:56] LABS: Urine Bacteria NONE SEEN /HPF (NONE SEEN); Urine RBC >50 /HPF (NONE SEEN)
[2018-01-10 10:57] LABS: Urine Culture Reflex Order NOT NEEDED
[2018-01-10] MEDS ORDERED: NA CHLORIDE 0.9% 1,000 ML IV SCH (11:00)
[2018-01-10] MEDS ORDERED: NA CHLORIDE 0.9% 500 ML ONE ×2 (11:07→13:12)
[2018-01-10 13:43] LABS: Hematocrit 26.1 % (39.6-49.0)
[2018-01-10] MEDS ORDERED: NA CHLORIDE 0.9% 100 ML ONE (16:22)
[2018-01-10] MEDS ORDERED: ACETAMINOPHEN 325 MG TABLET PO ONE (18:18)
[2018-01-10] MEDS ORDERED: lamoTRIgine 100 MG TAB PO SCH (21:00)
[2018-01-10] MEDS: ATORVASTATIN 20 MG TAB PO SCH (21:00)
[2018-01-10] MEDS: VIMPAT 200 MG PO SCH (21:00)
[2018-01-10] MEDS ORDERED: LACOSAMIDE 50 MG TABLET PO SCH (21:00)
[2018-01-10 21:14] LABS: Absolute Lymphocytes (CBC) 3.3 K/uL (0.7-4.9); Basophils % 0.1 % (0-1.3); MCV 93.6 fL (80-100)
[2018-01-10 21:19] LABS: Absolute Monocytes 1.5 K/uL (0.1-1.3); Absolute Neutrophil 14.3 K/uL (1.8-8.0); Hematocrit 23.9 % (39.6-49.0); Lymphocytes % 17.4 % (15.3-44.8); MCH 31.2 pg (27.0-35.0); MPV 7.9 fL (7.6-11.3); Monocytes % 7.9 % (3.3-12.3); RBC Red Blood Cell Count 2.55 M/uL (4.33-5.43)
[2018-01-10] MEDS: LAMOTRIGINE 200 MG TAB PO SCH (21:36)
[2018-01-10 21:49] LABS: Protime INR 1.56
[2018-01-10] MEDS ORDERED: NA CHLORIDE 0.9% 250 ML ONE (23:27)
--- NOTE | 2018-01-11 03:02 | HP ---
Date of Admission: 01/10/2018 Reason For Service: Abdominal distention and hemoperitoneum. History Of Present Illness: This is the case of a 67-year-old patient with history of mitral valve d isease and history of anticoagulation with 2 very tender hernias in the abdomen, 1 in the epigastric area and other one in the umbilical region, incarcerated. The patient had surgery done last Thursday. He was doing okay, but last night, he became agitated. Things changed this morning. He decided to come to the ER since he was clammy. The patient was seen initially by Dr. Hoskins, who is surgeon on -call. When they called me, I came to see the patient now. This patient has a ventral hernia and al so umbilical hernia. No bowel resections and no intraabdominal surgery or organ surgery done. The p atient was found to have a hemoperitoneum. Once again, he was in anticoagulation. Surgery had to be canceled last week because even though he was off the Coumadin for some time, still INR elevated and we have to wait until the INR was at least around 1.4 to be able to do the surgery because the patie nt was having so much pain on the ventral and umbilical region. Surgery was uneventful. The patient was doing well until this morning. He was sneezing. He was coughing, but he does not recall any fa lls. He did not use abdominal binder given to him because he is saying he was uncomfortable. He is still start taking Coumadin after the surgery. Allergies: ASPIRIN AND KEPPRA. Medications: Local. He was using Lovenox plus Coumadin. Past Surgical History: Includes mechanical heart valve and once again the ventral and umbilical marshal ia repair. Family History: Noncontributory. Review of Systems: Constitutional: Denies any fevers. Denies any falls. Denies any chills. Respiratory: Denies any shortness of breath. Gastrointestinal: He feels bloated. No melena. Musculoskeletal: Full range of motion with no deficit. The patient is currently awake and alert. HEENT: Pupils anicteric. Neck: Supple. Chest: Clear. Heart: S1, S2. Previous mitral valve repair. Abdomen: Softly distended. Incisions were intact. None ecchymoses. no crepitus. No fluctuance. Rectal: Deferred. Genitalia: Deferred. Extremities: Good capillary refill. Full range of motion. Neuro: Cranial nerves 2-12 grossly within normal limits. Blood Work: Shows at 6:30 this morning, the hemoglobin was 9.9. Right now, it is 9 at 13:05. Plate lets of 239. INR is still 1.59, initially was 1.85 and this is when he came this morning. Prior to that, the patient was on INR of 1.4, and he just took the Coumadin last night as per . Blood work shows at this moment potassium was 4.5, bicarb 24, creatinine of 2.3. Total bilirubin of 0.7, lipase 183. UA; blood 3 positive. CAT scan of the abdomen and pelvis was seen and reviewed wit aaron Landin from . The patient has moderate hemoperitoneum. Some postsurgical changes fr om the previous repair. Assessment: This is a 67-year-old patient, on anticoagulation, needed surgery last week for very [place] incarcerated hernia. We were able to bring the INR to 1.9 even when he was 4 days off the Coumad in. So we have to wait 48 more hours. By Thursday, the hernias were more tender and his INR came to 1 .4, so when the patient came to the hospital. Then in that case, we decided to do the surgery. His hernia surgeries are basically incisional, ventral, and umbilical hernia. No incarceration of bowel there. The surgeries were repair. Carefully hemostasis was obtained during the surgery since we kno w the patient was 1.4 cm. The incision today looks great. Still over the last 48 hours, the patient started his Coumadin again. He says he could not use abdominal binder even though he has remove it when he and he sustained no falls. The CAT scan was done without contrast for the creatin ine, so right now, we are going to correct his anticoagulopathy. We understand the limitations that we have, at least we have to bring it to 1.5 to . We are going to continue with fluid resu scitation, bed rest, ICU, blood pressure monitoring. This patient has no intraabdominal surgeries of any organs. No clips and no stitches to control any bleeding inside the belly. So, suspicion for h aving any injury is low unless the patient fell. He gave us some information. Most of the informati on is obtained from the chart because sometimes he gets confused, but does not recall exactly wh en she just asked and she just asked him right in front of me and he said he does not recall any fall s. Still whenever we have a chance, we would like to do a CAT scan with contrast whenever his vital signs let us do that in a safe fashion. In the meantime, we are going to continue with fluid resusci tation, fresh frozen plasma, and blood transfusion. HM/MODL Voice ID: [id number]
[2018-01-11] MEDS ORDERED: NA CHLORIDE 0.9% 1,000 ML IV SCH (04:00)
[2018-01-11 04:34] LABS: Absolute Lymphocytes (CBC) 4.2 K/uL (0.7-4.9); Absolute Monocytes 2.2 K/uL (0.1-1.3); Basophils % 0.1 % (0-1.3); Hematocrit 24.6 % (39.6-49.0); Lymphocytes % 18.7 % (15.3-44.8); MCH 30.6 pg (27.0-35.0); MCV 91.9 fL (80-100); MPV 8.3 fL (7.6-11.3); RBC Red Blood Cell Count 2.67 M/uL (4.33-5.43)
[2018-01-11 04:49] LABS: Albumin 3.1 g/dL (3.4-5.0); Bilirubin Total 0.5 mg/dL (0.2-1.0); Magnesium 2.4 mg/dL (1.8-2.4); Phosphorus 4.2 mg/dL (2.5-4.9); Potassium 4.3 mmol/L (3.5-5.1); Protein, Total 6.2 g/dL (6.4-8.2)
[2018-01-11 05:02] LABS: Protime INR 1.59
[2018-01-11] MEDS ORDERED: VITAMIN K (ADULT) 10 MG/ML SQ ONE (06:00)
[2018-01-11] MEDS ORDERED: IRBESARTAN 150 MG TAB PO SCH (06:00)
[2018-01-11 06:02] LABS: Blood Morphology Comment NOT SEEN (NOT SEEN); Platelet Estimate ADEQ
--- NOTE | 2018-01-11 08:05 | RAD REPORT ---
EXAM DESCRIPTION: RAD - Chest Single View - 01/11/2018 7:33 am CLINICAL HISTORY: Respiratory insufficiency COMPARISON: January 10 TECHNIQUE: AP portable chest image was obtained . FINDINGS: Low lung volumes are noted. No diffuse pulmonary edema, mass or infiltrate. Lung base atel ectasis present. Lung markings are similar to comparison. Heart and vasculature are normal. No measurable pleural effusion and no pneumothorax. No acute bony abnormality seen. No acute aortic findings suspected. IMPRESSION: No new or progressive cardiopulmonary finding. Lung base atelectasis and mild prominence of the interstitial markings remains.
[2018-01-11] MEDS: LAMOTRIGINE 200 MG TAB PO SCH ×2 (09:49→20:00)
[2018-01-11] MEDS: COENZYME Q10- 200 MG CAP PO SCH (09:50)
[2018-01-11] MEDS: VIMPAT 200 MG PO SCH ×2 (09:50→20:00)
[2018-01-11] MEDS ORDERED: SIMETHICONE 80 MG TAB PO ONE (10:10)
--- NOTE | 2018-01-11 10:10 | EKG ---
Test Date: 2018-01-10 Test Time: 02:45:15 Solutions Analyst: NIMISHA MEASUREMENT RESULTS: Intervals: Rate: 82 WI: 186 QRSD: 98 QT: 418 QTc: 488 Gray: P: 40 WI: 186 QRS: -21 T: 72 INTERPRETIVE STATEMENTS: Normal sinus rhythm Minimal voltage criteria for LVH, may be normal variant Prolonged QT Abnormal ECG Compared to ECG 07/26/2016 17:02:30 Prolonged QT interval now present Electronically Signed On 01-11-18 10:09:34 CDT by Juanjo Sood
[2018-01-11] MEDS ORDERED: NA CHLORIDE 0.9% 100 ML ONE (11:19)
[2018-01-11] MEDS ORDERED: D5 0.45 NS 1,000 ML IV SCH (14:00)
--- NOTE | 2018-01-11 15:12 | P.CNS ---
Medical - Date of Service Date of Service: 01/11/18 - Subjective Patient seen and examined at bedside with RN. Chart reviewed. Case discussed with general surgery at this time. Medicine on board for medical consult. - Vital Signs Temp Pulse Resp BP Pulse Ox 97.7 F 96 H 27 H 125/62 96 01/11/18 04:00 01/11/18 14:00 01/11/18 14:00 01/11/18 14:00 01/11/18 14:00 - Physical Exam HEENT: Unremarkable Lungs: Clear to auscultation Heart: Normal heart sounds Abdomen: Other (Generalized tenderness noted to along with rigidity noted as well.) Extremities: No leg edema - Studies Imagings Data: Reviewed - Problems (Diagnosis) (1) Hemoperitoneum Onset Date: 01/11/18 Current Visit: Yes Status: Acute (2) CAD (coronary artery disease) Onset Date: 01/11/18 Current Visit: Yes Status: Chronic Qualifiers: Coronary Disease-Associated Artery/Lesion type: [place] artery [place] vs. transplanted heart: [place] heart Associated angina: without angina Qualified Code(s): I25.10 - Atherosclerotic heart disease of [place] coronary artery without angina pectoris (3) Dyslipidemia Onset Date: 01/11/18 Current Visit: Yes Status: Chronic (4) H/O hernia repair Current Visit: Yes Status: Chronic (5) History of aortic valve replacement with metallic valve Current Visit: Yes Status: Chronic (6) Seizures Onset Date: 01/11/18 Current Visit: Yes Status: Chronic - Assessment and Plan Plan 1. Continue with IV hydration and PPI drip 2. Continue with IV antibiotics 3. Continue with pain control 4. NPO at this time 5. Cardiology consulted at this time. Appreciated recommendations 6. Serial H&H, and we will monitor INR and additional labs 7. Will hold any anticoagulation at this time given the hemoperitoneum - Discharge Plan Discharge Plan: Home Plan to discharge in: Greater than 2 days - Physician Review Critical Care: Yes
[2018-01-11 15:48] LABS: Protime INR 1.6
[2018-01-11 15:49] LABS: Hematocrit 25.5 % (39.6-49.0)
[2018-01-11] MEDS: D5 0.9 NS 1,000 ML IV SCH (18:19)
[2018-01-11] MEDS ORDERED: D5 0.9 NS 1,000 ML IV ONE (18:25)
--- NOTE | 2018-01-11 19:10 | P.CNS ---
Date of Consult: 01/11/18 Reason for Consult: VINCENT Chief Complaint: HEMOPERITONEUM Allergies levetiracetam [From [facility]] Allergy (Verified 01/10/18 06:11) doesnt work aspirin Adverse Reaction (Intermediate, Verified 01/10/18 06:11) TAKES COUMADIN Home Medications: Ascorbic Acid [Vitamin C] 1,000 mg PO DAILY 12/31/17 Cholecalciferol (Vitamin D3) [Vitamin D3] 2,000 unit PO DAILY 12/31/17 Codeine/APAP [Tylenol W/Codeine #3 tab] 1 tab PO Q6HP PRN 12/31/17 Cyanocobalamin [Vitamin B-12] 3,000 mcg PO DAILY 12/31/17 Irbesartan [Avapro] 75 mg PO [id number] 12/31/17 Lacosamide [Vimpat] 200 mg PO BID 12/31/17 Lamotrigine [Lamotrigine Odt] 200 mg PO BID 12/31/17 Loratadine [Claritin] 10 mg PO DAILY 12/31/17 Simvastatin 40 mg PO DAILY 12/31/17 Ubidecarenone [Co Q-10] 200 mg PO DAILY 12/31/17 Warfarin Sodium [Coumadin] 1 mg PO SEECOM 12/31/17 Warfarin Sodium [Coumadin] 2 mg PO M,W,F 12/31/17 Hydrocodone/Acetaminophen [Vicodin 5-325 mg Tablet] 1 each PO Q4H PRN #30 tablet 01/08/18 - Past Medical/Surgical History Diabetic: No -: Hypertension -: AV -: Dyslipidemia -: Seizures -: hernia repair -: AV replacement - Family History Father Family History: Reviewed- Non-Contributory Mother Notes: no significant family history per pt - Social History Smoking Status: Never smoker Alcohol use: No CD- Drugs: No Caffeine use: No Place of Residence: Home Physical Examination Temp Pulse Resp BP Pulse Ox 99.3 F 99 H 27 H 112/66 92 01/11/18 16:00 01/11/18 17:00 01/11/18 17:00 01/11/18 17:00 01/11/18 17:00 General: Oriented x3, Mild distress Neck: Supple, Without JVD or thyroid abnormality Respiratory: Clear to auscultation bilaterally Cardiovascular: No edema, Normal S1 S2 - Problems (1) VINCENT (acute kidney injury) Current Visit: Yes Status: Acute (2) Hemoperitoneum Onset Date: 01/11/18 Current Visit: Yes Status: Acute (3) CAD (coronary artery disease) Onset Date: 01/11/18 Current Visit: Yes Status: Chronic Qualifiers: Coronary Disease-Associated Artery/Lesion type: [place] artery [place] vs. transplanted heart: [place] heart Associated angina: without angina Qualified Code(s): I25.10 - Atherosclerotic heart disease of [place] coronary artery without angina pectoris (4) H/O hernia repair Current Visit: Yes Status: Chronic Conclusions/Impression: A 67 Y/O man with PMHx of MVR on Coumadin, CAD , HTN on Irbisartan , seizure disorder on antiepiliptic meds last seizure was >1yr ago Pt presented for abdominal pain and distension Pt was discharged last Thursday from the hospital after hernia repair surgery, this admission presemnted with abd pain and distension denied chest pain, palpitation, nausea, diarrhea or constipation. 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
[2018-01-11] MEDS: ATORVASTATIN 20 MG TAB PO SCH (20:00)
[2018-01-11] MEDS ORDERED: VITAMIN K (ADULT) 10 MG/ML SQ SCH (21:00)
[2018-01-12] MEDS: ACETAMINOPHEN 500 MG TAB PO PRN ×2 (04:55→18:26)
[2018-01-12 05:43] LABS: Absolute Lymphocytes (CBC) 4.3 K/uL (0.7-4.9); Absolute Monocytes 1.7 K/uL (0.1-1.3); Absolute Neutrophil 13.7 K/uL (1.8-8.0); Basophils % 0.2 % (0-1.3); Eosinophils % 0.1 % (0-4.4); Lymphocytes % 21.9 % (15.3-44.8); MCH 31.3 pg (27.0-35.0); MPV 8.1 fL (7.6-11.3); Monocytes % 8.4 % (3.3-12.3); RBC Red Blood Cell Count 2.53 M/uL (4.33-5.43)
[2018-01-12 06:17] LABS: Protime INR 1.34
[2018-01-12 07:17] LABS: Albumin 3.1 g/dL (3.4-5.0); Bilirubin Total 0.7 mg/dL (0.2-1.0); Magnesium 2.8 mg/dL (1.8-2.4); Phosphorus 2.2 mg/dL (2.5-4.9); Potassium 4.3 mmol/L (3.5-5.1); Protein, Total 6.4 g/dL (6.4-8.2); Thyroid Stimulating Hormone 2.35 uIU/mL (0.360-3.740)
[2018-01-12] MEDS: LAMOTRIGINE 200 MG TAB PO SCH ×2 (08:49→21:29)
[2018-01-12] MEDS: VIMPAT 200 MG PO SCH ×2 (08:50→21:29)
[2018-01-12] MEDS: COENZYME Q10- 200 MG CAP PO SCH (08:50)
[2018-01-12] MEDS ORDERED: NA CHLORIDE 0.9% 50 ML ONE (11:04)
[2018-01-12] MEDS: D5 0.9 NS 1,000 ML IV SCH (14:05)
--- NOTE | 2018-01-12 16:37 | PN ---
Date of Progress Note: 01/12/2018 Diagnoses: Coagulopathy, history of ventral hernias, hemoperitoneum. The patient is doing well, regan ke and alert, hungry. No short of breath. No chest pain. Afebrile. Physical Examination: General: The patient is awake and alert, in no distress. HEENT: Pupils anicteric. Chest: Bilateral breath sounds. Heart: S1, S2. Abdomen: Soft, distended. Incisions were intact. Extremities: Good capillary refill. No calf tenderness. Blood Work: Reviewed. Creatinine is improving. He has been keeping hemoglobin stable since then ev en though is 7.9. It has been between 8.5, 8.2, 7.9. We have not transfused him since yesterday kalani cabrera. Creatinine is improving to 1.9. He is producing urine at least 2 L. Plan: The plan for today will be start liquid diet. We do not want him to be anemic since there is still a possibility of intervention, so we are going to transfuse 1 unit of blood. INR finally after a week just came down to a level that may help us to control bleeding, although we had started to co nsider anticoagulation because of a history of the aortic valve replacement once we noticed the hemog lobin is stable. We are also going to get him out of bed. We appreciate the renal consult and a med ical consult help. AYALA/ANTOINETTE Voice ID: [id number] Report ID: [id number]
[2018-01-12 16:46] LABS: Hematocrit 24.9 % (39.6-49.0)
[2018-01-12] MEDS ORDERED: FUROSEMIDE 20 MG/ 2ML VIAL IV ONE ×2 (16:56→17:00)
--- NOTE | 2018-01-12 19:13 | PN ---
Date of Progress Note: 01/12/2018 Subjective: The patient is seen and examined. Chart reviewed and case discussed with RN. The patie nt states he is doing well. His shortness of breath has improved. Wants to work with physical thera py. Per nursing staff has some elements of noncompliance, however, has been cooperative. Review of Systems: Negative except as above. Medications: List reviewed. Physical Examination: Vital signs: Temperature is 99.5, heart rate 94, blood pressure 112/66, respirations 22, O2 saturati on 98% on 5 L via nasal cannula. General: Awake, alert, oriented x3, some mild distress. Ill-appearing male, obese, BMI 30. CV: S1, S2. Regular rate and rhythm. Murmur present due to mechanical valve. Respiratory: Diminished breath sounds. Some crackles heard. No wheezing or stridor. The patient i s tachypneic, use of accessory muscles present. Gastrointestinal: Abdomen is distended. No rigidity. Bowel sounds positive. Incision site clean, dry, intact from previous surgery. No signs of infection. Extremities: No clubbing or cyanosis. The patient does have pedal edema. Neurologic: Nonfocal. Laboratory Data: Sodium 140, potassium 4.3, chloride 108, CO2 23, BUN 59, creatinine 1.9, glucose 12 2, calcium 8, phosphorus 2.2, magnesium 2.8, lipase 119. TSH 2.3, free T4 0.79, cortisol 35.49. WBC 19.7, H and H 7.9 and 23, platelets 185, neutrophils 69%. Retic count 3.6. Blood cultures no growt h to date. Assessment And Plan: A 67-year-old male with: 1.Hemoperitoneum, recent ventral hernia repair. The patient has been transfused 6 units PRBCs, mult iple units of FFP. We will continue to monitor H and H. 2.History of aortic valve replacement with metallic valve. Anticoagulation on hold due to hemoperit oneum. Cardiology on board. High risk of clotting. However at this time, too risky to restart anti coagulation due to hemoperitoneum and bleed. We will continue to monitor closely. 3.History of seizure disorder, stable. 4.Status post recent ventral hernia repair. 5.Dyslipidemia. 6.Coronary artery disease, [place] artery and [place] heart without angina. 7.Obesity, BMI 32. 8.Acute respiratory distress, on supplemental oxygen via nasal cannula. Likely has some fluid overl oad due to multiple transfusions. Does have some lung base atelectasis. We will continue with incen tive spirometry. IV fluids have been adjusted. 9.Acute kidney injury, improving. Creatinine is down to 1.9. Appreciate Nephrology input. Likely from ischemic acute tubular necrosis due to low hemoglobin and bleed versus possible compartment synd kaylee as the intraabdominal pressure was elevated, much improved now. Urine output is acceptable. AR Bs currently on hold. 10.Diabetes mellitus type 2. We will continue sliding scale insulin. Monitor BBG. Plan: Continue close monitoring in ICU setting. /MODL Voice ID: [id number] Report ID: [id number]
[2018-01-12] MEDS: ATORVASTATIN 20 MG TAB PO SCH (21:29)
--- NOTE | 2018-01-12 21:48 | RAD REPORT ---
EXAM DESCRIPTION: Senat Single View01/12/2018 9:34 pm CLINICAL HISTORY: Shortness of breath COMPARISON: 01/11/2018 FINDINGS: Small to moderate bilateral pleural effusions are suspected with bibasilar atelectasis. Upper lobes appear clear. Heart is moderately enlarged. Postsurgical changes involve the chest IMPRESSION: No acute abnormalities displayed
[2018-01-12 22:08] LABS: Hematocrit 25.7 % (39.6-49.0)
[2018-01-13] MEDS: ACETAMINOPHEN 500 MG TAB PO PRN ×3 (02:47→22:58)
[2018-01-13 07:40] LABS: Protime INR 1.14
[2018-01-13 07:42] LABS: Absolute Lymphocytes (CBC) 2.7 K/uL (0.7-4.9); Absolute Neutrophil 7.7 K/uL (1.8-8.0); Basophils % 0.3 % (0-1.3); Lymphocytes % 23.6 % (15.3-44.8); MCV 92.6 fL (80-100); MPV 7.6 fL (7.6-11.3); Monocytes % 8.9 % (3.3-12.3)
[2018-01-13 07:49] LABS: Potassium 4.7 mmol/L (3.5-5.1)
[2018-01-13 08:11] LABS: Platelet Estimate ADEQ; Urine White Blood Cell Casts OK
[2018-01-13 08:12] LABS: Blood Morphology Comment NOT SEEN (NOT SEEN); Hypochromasia 1+; Polychromasia 1+
[2018-01-13] MEDS: LAMOTRIGINE 200 MG TAB PO SCH ×2 (08:41→21:00)
[2018-01-13] MEDS: VIMPAT 200 MG PO SCH ×2 (08:41→21:00)
[2018-01-13] MEDS: COENZYME Q10- 200 MG CAP PO SCH (08:58)
--- NOTE | 2018-01-13 09:10 | PN ---
Date of Progress Note: 01/12/2018 Subjective: The patient was admitted post surgery. Last week, the patient was admitted with low blood pressure, poor perfusion, acute tubular necrosis, acute kidney injury secondary to poor perfusion and acute tubular necrosis. The patient received lasix had good UOP . The patient start having good urine output, kidney function has been improved. Physical Examination: Vital Signs: The patient's blood pressure 119/76, pulse of 85. Chest: Crackles bilateral. Heart: S1, S2. Abdomen: Soft, mild tender, distended. Extremities: Trace edema. Neuro: Alert and oriented x3. no focal . Laboratory Data: WBC 19.7, H and H 7.9 and 23. Sodium 140, potassium 4.3, bicarb 23, chloride 108, BUN 59, creatinine down to 1.9, GFR of 36, calcium 8, phos 2.2, magnesium of 2.8. Current Medications: The patient on include IV fluid D5 at 50 cc an hour, Zofran, atorvastatin, Tylenol. Assessment/plan: Acute kidney injury secondary to poor perfusion, acute tubular necrosis secondary to low blood pressure superimposed with HORACIO inhibitor. On recovery nonoliguric over volume currently. 1. I am going to go ahead and discontinue IV fluid. 2. Stop the patient's Lasix given the marginal blood pressure. Adjust IV fluid I going to get continue the IV fluid as the patient can experience post ATN and we will follow up. 3. Hypertension. Currently hypotension stabilized. We will hold all blood pressure medication. inculding Lasix, Horacio inhibitor. 4. Hypophosphatemia, no supplement for today. 5. Abdominal hernia status post repair. We will follow up with Surgery. TISH Voice ID: [id number] Report ID: [id number] ANDREW
[2018-01-13] MEDS ORDERED: FUROSEMIDE 40 MG/4 ML VIAL IV ONE (10:32)
--- NOTE | 2018-01-13 11:34 | PN ---
Date of Progress Note: 01/12/2018 Subjective: Mr. Diaz is 67, has a history of mechanical aortic valve. Has a history of hypertension , seizure disorder, dyslipidemia. Underwent hernia surgery. He was being bridged with Lovenox and C oumadin in the interim. Came in with hemoperitoneum on 01/10/2018. He has received 5 units of blood and he has received fresh frozen plasma. Today, he is feeling better and he has a creatinine that h as improved from 3.8 to 1.9. His last hemoglobin is 8.2. His platelet count is improving. His INR is noted down to 1.3. He has no cardiac complaint. Anticoagulation has been held. He can be transf erred to telemetry as far as I am concerned. We will continue to follow him. No plans to restart hi s anticoagulation at this point. REYES/ANTOINETTE Voice ID: [id number] Report ID: [id number]
--- NOTE | 2018-01-13 16:10 | PN ---
Date of Progress Note: 01/13/2018 Subjective: The patient seen and examined. Chart reviewed and case discussed with RN, Dr. Sood, a gladys Faust. The patient doing better. Worked well with PT yesterday. No further complaints. Review of Systems: Negative except as above. Medications: List reviewed. Physical Examination: Vital Signs: Temperature 99.2, heart rate 88, blood pressure 117/65, respirations 19, O2 100% on 2 L via nasal cannula. General: Awake, alert, oriented x3, not in any acute distress, ill-appearing obese male. CV: S1, S2. No murmurs. Regular rate and rhythm. Peripheral pulses present. Respiratory: Better aeration than previously. Some diminished breath sounds at the bases. No wheez ing or stridor. Gastrointestinal: Abdomen is distended. No tenderness to palpation. Stitch is in place. Bowel chelsea nds positive. Extremities: No clubbing, cyanosis, edema. Neurologic: Nonfocal. Laboratory Data: Sodium 139, potassium 4.7, chloride 108, CO2 25, BUN 37, creatinine 1, glucose 102, calcium 8.2. WBC 11.6, H and H 8 and 24, platelets 159. Blood cultures negative to date. Assessment And Plan: A 67-year-old male with: 1.Hemoperitoneum, recent ventral hernia repair. The patient has been transfused multiple units of P RBCs. Hemoglobin same around 8. Will receive 2 more units tonight. Has received multiple units of FFP. 2.History of aortic valve replacement with metallic valve. Going to start anticoagulation in a.m. p rior surgery. Anticoagulation currently on hold due to hemoperitoneum which is now more stable. 3.History of seizure disorder, stable. 4.Status post recent ventral hernia repair. 5.Dyslipidemia. 6.Coronary artery disease, [place] artery, and [place] heart without angina. 7.Obesity, BMI 32. 8.Acute respiratory distress on supplemental oxygen, now weaned down to 2 L, improved with Lasix and IV fluids have been discontinued. We will continue to monitor. 9.Acute kidney injury, resolved. Creatinine has normalized, likely due to ischemic acute tubular ne crosis versus hypertension. Decreased blood levels. ARB on hold. 10.Diabetes mellitus type 2. Continue sliding scale insulin and monitor BBG. SA/MODL Voice ID: [id number] Report ID: [id number]
--- NOTE | 2018-01-13 18:25 | PN ---
Date of Progress Note: 01/13/2018 Subjective: Mr. Diaz is a 67-year-old patient with history of aortic valve replacement on anticoagul ation, also have hernia surgery last week. The patient was good for the first 72 hours. Then, after that, talking to him right now he stated that if he bend forward he did not fall, felt a little pop on the ventral region. Also the same time he started taking his anticoagulation. He did not want to use abdominal binder because he stay just getting hot and itchy. The patient comes to the ER, found to have a hemoperitoneum with an elevated INR even though he just started his Coumadin. We took him to the ICU, did blood transfusion and correct his anticoagulation understanding also that he has to be anticoagulated again due to the aortic valve replacement. For last 24 hours he is feeling good. He is tolerating diet. He wants to eat more, but I asked him to just hold the diet just to an impend ing ileus that we believe he is going to develop from his situation. Review of Systems: Constitutional: Denies any fevers or any chills. Respiratory: Denies any shortness of breath. Gastrointestinal: As above. He says he is passing some gas. Extremities: Good capillary refill with no calf tenderness. Physical Examination: General: The patient is awake and alert, talkative, cooperative. HEENT: Pupils are equal and reactive, anicteric. Neck: Supple. Chest: Clear. Heart: S1, S2. Abdomen: Soft, distended. Incisions are intact. No ecchymosis, no cellulitis. Extremities: Good capillary refill with no calf tenderness. Neuro: Cranial nerves 2 through 12 grossly within normal limits. Laboratory Data: Blood work shows a WBC count of 11.6, hemoglobin of 8, and platelets of 159. His I NR is 1.34. He is active chemistry shows an improving creatinine to 1.0. Potassium is 4.7. Blood p retty positive. Assessment: This is a 67-year-old patient comes to us with above situation. 1.For his kidney, we have the renal doctor involved in the case. His improving with creatinine, we trying to control his fluid. He is keeping the blood pressure right now on his own. 2.Pain control, the patient has some minor discomfort. He does not have any pain he had before. 3.Gastrointestinal. He is tolerating clear liquid diet. We do not want to advance his diet more si nce we expect an ileus in him for the next few days and doing that may will distend abdomen even more and caused the patient to have vomiting and that might be interfere normal respiratory function. 4.Hemoglobin. He has been keeping hemoglobin in 8, but we have to start anticoagulation, and starti ng anticoagulation on him obviously he may put him at risk of bleeding, so I discussed the case with Dr. Sood today, trying to find the best situation to anticoagulate him. We decided that we going t o start tomorrow morning. Even though we note there is a risk on that at the same time. The risk ma y outweigh the benefits since we also have to deal with the aortic valve replacement. We going to st art the heparin without no bolus. For that, we are going to prepare him tonight. We are going to ra ise the hemoglobin little bit more. That will give us the room in case he started bleeding, and ough t to go to be anemic. So, he is going to be getting 2 units of packed RBC and patient understand marques t. He also understands the risk of anticoagulation, he has never been happy with it, but he stated o bviously he decided to go on anticoagulation 3 years ago when he had aortic valve replacement. He un derstand that even though it is not the best for anybody have any surgery still. He understands the risks of bleeding. 5.Activity. We trying to get him out of bed. He is moving. At the same time, since we are going t o anticoagulate him. We going to be careful not to let him fall. In case we do not need another cau se of bleeding especially when he would go to be anticoagulated. 6.From respiratory standpoint, we will encourage incentive spirometry on him. 7.Fluid control. The renal doctors will suggest. I given some Lasix today and we going to proceed accordingly. 8.Also, his kidney function, his urine output has been positive. HM/MODL Voice ID: [id number] Report ID: [id number]
[2018-01-13] MEDS ORDERED: NA CHLORIDE 0.9% 500 ML ONE (20:44)
--- NOTE | 2018-01-13 20:47 | PN ---
Date of Progress Note: 01/13/2018 Subjective: The patient was admitted with acute kidney injury secondary to cardiorenal, poor perfusion, ATN, secondary to intraabdominal bleed. The patient required blood transfusion. Blood pressure has been stabilized __. Objective: Vital Signs: When I saw the patient, blood pressure of 136/73, pulse of 85, afebrile. Chest: Clear to auscultation. Heart: S1, S2. Regular. Click for the aortic valve. Abdomen: Soft, nontender. Extremities: Trace edema. Neuro: Alert and oriented. Nonfocal. Assessment And Plan: 1. Acute kidney injury secondary to cardiorenal, still on the wet side. I am going to give the patient another dose of Lasix today and we will monitor the patient. 2. Hypertension. We will utilize the blood pressure for more diuresis. 3. Intraabdominal bleed. We will follow up with the primary and Surgery. 4. Aortic valve replacement. The patient off Coumadin. We will follow up with Cardiology. I agreed that the patient need heparin drip. TISH Voice ID: [id number] Report ID: [id number] ANDREW
[2018-01-13] MEDS: ATORVASTATIN 20 MG TAB PO SCH (21:00)
[2018-01-13] MEDS: NA CHLORIDE 0.9% 250 ML ONE ×2 (21:01→23:23)
[2018-01-14 06:23] LABS: Potassium 4.2 mmol/L (3.5-5.1)
[2018-01-14 06:25] LABS: Absolute Lymphocytes (CBC) 2.4 K/uL (0.7-4.9); Absolute Monocytes 1.1 K/uL (0.1-1.3); Absolute Neutrophil 5.8 K/uL (1.8-8.0); Basophils % 0.2 % (0-1.3); Eosinophils % 2.2 % (0-4.4); Hematocrit 28.6 % (39.6-49.0); Lymphocytes % 24.8 % (15.3-44.8); MCH 30.3 pg (27.0-35.0); MCV 89.8 fL (80-100); MPV 7.6 fL (7.6-11.3); Monocytes % 11.9 % (3.3-12.3); RBC Red Blood Cell Count 3.18 M/uL (4.33-5.43)
[2018-01-14 06:27] LABS: Protime INR 1.13
[2018-01-14 07:04] LABS: Anisocytosis 1+; Blood Morphology Comment NOTED (NOT SEEN); Hypochromasia 1+; Macrocytosis 1+; Platelet Estimate ADEQ; Polychromasia 1+
[2018-01-14] MEDS: HEPARIN/D5W 25,000 UNIT/500 ML BAG IV SCH (08:23)
[2018-01-14] MEDS: VIMPAT 200 MG PO SCH ×2 (09:10→20:13)
[2018-01-14] MEDS: COENZYME Q10- 200 MG CAP PO SCH (09:10)
[2018-01-14] MEDS: LAMOTRIGINE 200 MG TAB PO SCH ×2 (09:10→20:12)
--- NOTE | 2018-01-14 14:39 | PN ---
Date of Progress Note: 01/14/2018 Addendum: Assessment And Plan: A 67-year-old male with: 1. Hemoperitoneum with recent ventral hernia repair, status post multiple units of transfusion, improving. 2. Acute blood loss anemia. The patient has been transfused approximately 8 units of PRBCs and multiple units of FFP. Hemoglobin stable secondary to above. 3. History of aortic valve replacement with metallic valve. Anticoagulation is on hold due to hemoperitoneum. However, now stable. Going to start on heparin drip and monitor closely. 4. History of seizure disorder, stable. 5. Status post recent ventral hernia repair. 6. Dyslipidemia, on statin. 7. Coronary artery disease, [place] artery and [place] heart without angina, stable. 8. Obesity, BMI 32. 9. Acute respiratory distress, still on supplemental oxygen, weaning as tolerated. 10. Acute kidney injury, resolved. Creatinine normalized. 11. Diabetes mellitus type 2. We will continue sliding scale insulin and Accu -Cheks. Plan: Continue to monitor in ICU setting. Restart anticoagulation. /ANTOINETTE Voice ID: [id number] Report ID: [id number] ANDREW
--- NOTE | 2018-01-14 14:42 | PN ---
Date of Progress Note: 01/14/2018 Subjective: The patient seen and examined. Chart reviewed and case discussed with Dr. Loomis. The patient to be started on heparin drip today. Doing well with PT. Per nursing staff was a little bit confused this morning, but oriented x3. Review of Systems: Negative except as above. Medications: List reviewed. Physical Examination: Vital Signs: Temperature 99.3, heart rate 80, blood pressure 131/66, respirations 20, O2 95% on 2 L via nasal cannula. General: Awake, alert, oriented x3. Some mild distress. Obese male, ill- appearing. CV: S1, S2. No murmurs. Peripheral pulses present. Respiratory: Moving air well bilaterally. No wheezing. The patient is slightly tachypneic. Gastrointestinal: Abdomen is distended, appears to be softer. Bowel sounds are positive. No tenderness to palpation. Extremities: No clubbing, cyanosis, or edema. Neurologic: Nonfocal. Laboratory Data: Sodium 139, potassium 4.2, chloride 107, CO2 24, BUN 25, creatinine 3.9, glucose 94, calcium 8.4. WBC 9.6, H and H 9.6 and 28.6, platelets 157, neutrophils 60%. Blood cultures, no growth to date. Assessment And Plan: PLEASE SEE ADDENDUM SA/MODL Voice ID: [id number] Report ID: [id number] MTDD
[2018-01-14 18:18] LABS: Hematocrit 32.8 % (39.6-49.0)
[2018-01-14] MEDS: ATORVASTATIN 20 MG TAB PO SCH ×2 (20:12→20:18)
--- NOTE | 2018-01-14 23:33 | P.PN ---
Subjective Date of Service: 01/14/18 Chief Complaint: HEMOPERITONEUM No new complaints tolerating diet euvolemic Cr normal will sign off call us prn Physical Examination - Vital Signs Temperature: 100.8 F Blood Pressure: 134/66 Pulse: 85 Respirations: 24 Pulse Ox (%): 98 - Physical Exam General: Oriented x3 HEENT: Atraumatic Neck: Supple Respiratory: Clear to auscultation bilaterally Cardiovascular: No edema, Normal S1 S2 Assessment And Plan - Current Problems (Diagnosis) (1) VINCENT (acute kidney injury) Current Visit: Yes Status: Acute (2) Hemoperitoneum Onset Date: 01/11/18 Current Visit: Yes Status: Acute (3) CAD (coronary artery disease) Onset Date: 01/11/18 Current Visit: Yes Status: Chronic Qualifiers: Coronary Disease-Associated Artery/Lesion type: [place] artery [place] vs. transplanted heart: [place] heart Associated angina: without angina Qualified Code(s): I25.10 - Atherosclerotic heart disease of [place] coronary artery without angina pectoris (4) H/O hernia repair Current Visit: Yes Status: Chronic - Plan VINCENT Resolved VINCENT likely due to ischemic ATN Abd CT: no hydro Irbisartan dcd Intar abd hematoma as per surgery team DM BS control MVR Coumadin on hold for now CAD Seizure disorder
[2018-01-15 05:35] LABS: Absolute Lymphocytes (CBC) 2.8 K/uL (0.7-4.9); Absolute Monocytes 1.2 K/uL (0.1-1.3); Absolute Neutrophil 5.6 K/uL (1.8-8.0); Basophils % 0.1 % (0-1.3); Eosinophils % 3.6 % (0-4.4); Hematocrit 30.8 % (39.6-49.0); Lymphocytes % 27.5 % (15.3-44.8); MCH 30.9 pg (27.0-35.0); MCV 88.3 fL (80-100); MPV 7.8 fL (7.6-11.3); Monocytes % 12.4 % (3.3-12.3); RBC Red Blood Cell Count 3.49 M/uL (4.33-5.43)
[2018-01-15 05:47] LABS: BUN Blood Urea Nitrogen 19 mg/dL (7-18); Bicarbonate 24 mmol/L (21-32); Glucose Level 99 mg/dL (74-106); Sodium Level 139 mmol/L (136-145)
[2018-01-15 06:19] LABS: Blood Morphology Comment NOTED (NOT SEEN); Platelet Estimate ADEQ; Platelets, Giant NOTED; Urine White Blood Cell Casts OK
[2018-01-15 06:20] LABS: Anisocytosis 1+; Macrocytosis SLIGHT; Polychromasia 1+
[2018-01-15] MEDS: HEPARIN/D5W 25,000 UNIT/500 ML BAG IV SCH (07:25)
[2018-01-15] MEDS: LAMOTRIGINE 200 MG TAB PO SCH ×2 (08:54→21:44)
[2018-01-15] MEDS: VIMPAT 200 MG PO SCH ×2 (08:56→21:43)
[2018-01-15] MEDS: ACETAMINOPHEN 500 MG TAB PO PRN (12:24)
[2018-01-15] MEDS ORDERED: HYDROCODONE/APAP 5/325 MG TAB PO PRN (12:55)
[2018-01-15] MEDS ORDERED: MORPHINE 4 MG/ML SYR IV PRN (12:59)
--- NOTE | 2018-01-15 14:50 | RAD REPORT ---
EXAM DESCRIPTION: USExtremity Venous Uni Ltd01/15/2018 1:57 pm CLINICAL HISTORY: left leg pain and swelling. COMPARISON: None. FINDINGS: Left common femoral, superficial femoral, popliteal and posterior tibial veins are compre ssible and demonstrate augmentation. Doppler demonstrates good flow. IMPRESSION: No evidence of deep venous thrombosis involving the left lower extremity.
--- NOTE | 2018-01-15 15:10 | PN ---
Date of Progress Note: 01/15/2018 Reason For Service: Coagulopathy, aortic valve, hemoperitoneum. Subjective: The patient doing well. No complaint. Tolerating diet. No short of breath. No chest pain. Review of Systems: Constitutional: Denies any fever. Respiratory: Denies any shortness of breath. Gastrointestinal: The patient passing gas and having bowel movement. Abdomen: Soft with no pain. Extremity: Good capillary refill. The patient states he hit the rail with his left knee. He is hav ing some discomfort in that area. Physical Examination: General: The patient is awake and alert. Pupils equal, reactive, anicteric. Neck: Supple. Chest: Clear. Abdomen: Soft and depressible. No guarding or rebound. No peritoneal signs. Softly distended. Extremities: Full range of motion x4. No Homans sign. Good peripheral pulses. On the left knee, p atient say he just have some discomfort behind the knee. He hit that against the rail. Neuro: Cranial nerves 2 through 12 grossly within normal limits. Laboratory Data: Blood work shows a hemoglobin of 10.8 with a WBC count of 10, platelets of 211. IN R is , PTT 52.1, potassium is 4.0. Creatinine is 0.8. Assessment: 1.A 67-year-old patient, improving. Yesterday, we discussed the patient's pros and cons of anticoag ulation, since we have aortic valve replaced 30 years ago and he still have to be anticoagulation. O nce we reverse the anticoagulation and he improves and H and H now is stable. Yesterday, we proceede d to start the heparin understanding the risks of bleeding. So far, overnight he is doing well. We did a hemoglobin last night that shows some improvement and stability. Right now, he is tolerating d iet. He wants to advance from soft diet to normal diet. 2.No shortness of breath. He is doing incentive spirometry. 3.From the anticoagulation standpoint. We have a heparin and now we have to see if we can restart t he Coumadin again and once he is therapeutic and Coumadin, then we will remove the heparin and it wou ld be . 4.Ambulation. He is getting physical therapy. 5.He say he have a sore knee from his hitting of the left knee but at the same time he has been in b ed for a few days. So I want to do the venous Doppler on the left lower extremity to rule out any DV Ts. 6.He is okay to be discharged home. It is okay with Cardiology and hospitalist. We discussed the c ase with the hospitalist right now and they will transfer the patient under service from a [facility] to get him stable. Then, he will be discharged once the Coumadin levels are therapeutic. I will be a secondary business system consultant from now. The patient is fully aware of the changes. He understands . AYALA/ANTOINETTE Voice ID: [id number] Report ID: [id number]
--- NOTE | 2018-01-15 18:37 | PN ---
Date of Progress Note: 01/15/2018 Subjective: The patient seen and examined. Chart reviewed and case discussed with RN and Dr. Mclaughlin. The patient is doing better. Will be stepped down to a regular floor today. So far has been tolerating heparin. Review of Systems: Negative except as above. Medications: List reviewed. Physical Examination: Vital Signs: Temperature 100.4, heart rate 88, blood pressure 128/68, respirations 21, O2 98% on room air. General: Awake, alert, oriented x3, in some mild distress. Elderly male, obese. CV: S1, S2. No murmurs. Respiratory: Moving air well bilaterally. Abdomen: Abdomen is soft, nontender, mildly distended. No rebound or guarding. Bowel sounds positive. Extremities: No clubbing, cyanosis, or edema. Neurologic: Nonfocal. Laboratory Data: Sodium 139, potassium 4, chloride 107, CO2 24, BUN 19, creatinine 0.8, glucose 99, calcium 8.5. WBC 10, H and H 10.8 and 30.8, platelets 211, neutrophils 56%. Blood cultures final, no growth. Doppler study is pending. Assessment And Plan: A 67-year-old male with: 1. Hemoperitoneum with recent ventral hernia repair, improving. 2. Acute blood loss anemia, status post multiple transfusions, PRBCs and FFP. Hemoglobin stable at this time. Continue to monitor and transfuse as needed. 3. History of aortic valve replacement. The patient have metallic valve. Heparin has been started. We will add Coumadin. Appreciate Cardiology input. 4. History of seizure disorder, stable. 5. Status post recent ventral hernia repair. 6. Dyslipidemia, on statin. 7. Coronary artery disease, [place] artery and [place] heart without angina, stable. 8. Obesity, BMI 32. 9. Acute respiratory distress. Currently on supplemental oxygen. To wean off as tolerated. 10. Acute kidney injury, resolved. Plan: Step down to regular floor. Recheck Doppler venous ultrasound. The patient does report some pain in his legs with low-grade fever. SA/MODL Voice ID: [id number] Report ID: [id number] ANDREW
[2018-01-15] MEDS: ATORVASTATIN 20 MG TAB PO SCH (21:00)
[2018-01-16] MEDS: HEPARIN/D5W 25,000 UNIT/500 ML BAG IV SCH ×2 (03:30→21:11)
[2018-01-16 06:04] LABS: Absolute Lymphocytes (CBC) 2.5 K/uL (0.7-4.9); Absolute Monocytes 1.2 K/uL (0.1-1.3); Absolute Neutrophil 5.5 K/uL (1.8-8.0); Basophils % 0.2 % (0-1.3); Eosinophils % 4.9 % (0-4.4); Hematocrit 31.5 % (39.6-49.0); Lymphocytes % 25.9 % (15.3-44.8); MCV 88.8 fL (80-100); Monocytes % 12.3 % (3.3-12.3); RBC Red Blood Cell Count 3.55 M/uL (4.33-5.43)
[2018-01-16 06:08] LABS: Protime INR 1.17
[2018-01-16 06:21] LABS: BUN Blood Urea Nitrogen 22 mg/dL (7-18); Bicarbonate 23 mmol/L (21-32); Glucose Level 99 mg/dL (74-106); Potassium 3.9 mmol/L (3.5-5.1); Sodium Level 136 mmol/L (136-145)
[2018-01-16] MEDS: LAMOTRIGINE 200 MG TAB PO SCH ×2 (09:03→21:00)
[2018-01-16] MEDS: VIMPAT 200 MG PO SCH ×2 (09:05→21:00)
[2018-01-16] MEDS: ACETAMINOPHEN 500 MG TAB PO PRN (10:49)
[2018-01-16] MEDS ORDERED: GLUCAGON 1 MG/VIAL IM PRN (12:35)
[2018-01-16] MEDS ORDERED: D50W 25 GM/50 ML SYRINGE IV PRN (12:35)
--- NOTE | 2018-01-16 15:13 | PN ---
Date of Progress Note: 01/16/2018 History: The patient is seen and examined. Chart reviewed and case discussed with RN. The patient doing well. Complaining of some left leg pain. Review of Systems: Negative except as above. Medications: List reviewed. Physical Examination: Vital Signs: Temperature 98.9, heart rate 93, blood pressure 102/62, respirations 20, O2 94% on room air. General: Awake, alert, oriented x3, not in any acute distress. Elderly male. Somewhat ill-appearing. CV: S1 and S2. Regular rate and rhythm. Peripheral pulses present. Respiratory: Moving air well bilaterally. No wheezing. Gastrointestinal: Abdomen is soft, mildly distended, significantly improved from previous. No tenderness to palpation. Bowel sounds positive. Extremities: No clubbing, cyanosis, edema. Musculoskeletal: Tenderness to palpation in the lateral posterior aspect of the left lower extremity. Neurologic: Nonfocal. Laboratory Data: Sodium 136, potassium 3.9, chloride 106, CO2 23, BUN 22, creatinine 0.8, glucose 99, calcium 8.6. WBC 9.7, H and H 11, 31.5, platelets 239. INR 1.17. Assessment: A 67-year-old male with: 1. Hemoperitoneum with recent ventral hernia repair, resolving. 2. Acute blood loss anemia, status post multiple transfusions of PRBCs and FFP. Hemoglobin stable. We will continue to monitor H and H, transfuse as needed. 3. Mechanical aortic valve. We will start Coumadin, heparin. The patient has been on heparin drip. Cardiology on board. 4. History of seizure disorder, stable. 5. Status post recent ventral hernia repair. 6. Dyslipidemia. Continue statin. 7. Coronary artery disease [place] artery and [place] heart without angina, stable. 8. Obesity, BMI 32. 9. Acute respiratory distress, improving. The patient is now on room air. 10. Acute kidney injury, resolved. 11. Gastrointestinal, deep vein thrombosis prophylaxis addressed. Plan: We will initiate Coumadin tonight. Monitor INR. Watch for signs of bleeding. We will continue to bridge with heparin. Goal of INR is between 2.5- 3.5. /ANTOINETTE Voice ID: [id number] Report ID: [id number] [facility]OSPITALDomingo
[2018-01-16] MEDS ORDERED: MAGNES/ALUMIN/SIMET 30ML UCUP PO ONE (16:24)
[2018-01-16] MEDS ORDERED: INSULIN -REGULAR HUMAN 50 UNIT/0.5 ML ML SQ SCH (16:30)
[2018-01-16] MEDS: WARFARIN SODIUM 4 MG TAB PO SCH (17:18)
--- NOTE | 2018-01-16 18:04 | PN ---
Date of Progress Note: 01/16/2018 History: The patient was admitted with acute kidney injury secondary to poor perfusion, ATN, seconda ry to intraabdominal bleed. After hydration, the patient recovered. The patient develop over volume response to diuresis. The patient was started on heparin drip currently. H and H being stable. Physical Examination: Vital Signs: Blood pressure 132/78, pulse of 88. Chest: Faint crackles on the base. Heart: S1, S2. Regular. Systolic murmur with a click for the aortic valve. Abdomen: Soft, nontender. Extremities: Trace edema. Laboratory Data: H and H .5. Sodium 136, potassium 3.9, bicarb 23, BUN 22, creatinine 0.8, mary cium 8.6. Medications: Current medications the patient on include: 1.Tylenol. 2.Hydrocodone. 3.Heparin drip. 4.Warfarin. Assessment And Plan: 1.Acute kidney injury secondary to prerenal, secondary to bleed hypovolemic, recover, resolved. 2.Hypertension, currently controlled, optimal. We will give the patient extra dose of Lasix today, and we will monitor. 3.Intraabdominal bleed, hemoperitoneum. Follow up with surgery p.r.n. transfusion. 4.Aortic valve, as by Cardiology. The patient was started on Coumadin. Will follow up with the dimitris yeung. JOI/ANTOINETTE Voice ID: [id number] Report ID: [id number]
[2018-01-16] MEDS: ATORVASTATIN 20 MG TAB PO SCH (21:05)
--- NOTE | 2018-01-17 00:44 | PN ---
Date of Progress Note: 01/16/2018 Reason For Service: Hemoperitoneum coagulopathy aortic valve. History Of Present Illness: This is a case of a 67-year-old patient with a hemoperitoneum coagulopat hy. The patient is doing well. He went home and he was started on anticoagulation after surgery sev eral days ago. He comes to the hospital with hemoperitoneum. He took fresh-frozen plasma and vitami n K to reverse that uneventfully. The patient now is tolerating diet, passing flatus, having bowel m ovement, ambulating. No shortness of breath, no chest pain. He is now trying to think back about wh at happened and he said that he remembered taking a double dose of Lovenox 100 mg instead of 80 plus a Coumadin on top. Other than, really he is doing okay. The abdomen is soft and depressible. Physical Examination: General: The patient are awake and alert, in no distress. HEENT: Pupils are equal and reactive, anicteric. Neck: Supple. Chest: Clear. Abdomen: Softly distended. No guarding or rebound or peritoneal signs. Intact incisions. Rectal: Deferred. Extremities: Full range of motion. Good capillary refill. No Homans sign. Laboratory Data: Blood work shows hemoglobin of 11. Venous Doppler negative for DVT. PTT 58. Plan: From gastroenterology, the patient will advance diet, activity, fully ambulation. From the he matologist's point of view, Dr. Jaimes and Dr. Rodriguez will take over and try to discharged him when th e Coumadin is therapeutic and then heparin will be stopped. He was advised once again to follow with his director client. Follow up in my office in 1 week when he gets discharged. He understands ___ for the next few days. Dr. Arellano, one of surgeons, will be available in case needed, although we do not expect that to happen. He was advised the importance of taking the medication, allow the fam reed also to give him a specific time in organized itself since sometimes he gets confused in the amou nt of Coumadin he takes. At the same moment, he does not remember which dosage is for each day, whic h I believe needs to be addressed and the family was fully explained of it the importance of just pro bably give it to him the specific date, the tablets he needs instead of letting him select it. LORAINE Voice ID: [id number] Report ID: [id number]
[2018-01-17 05:20] LABS: Absolute Lymphocytes (CBC) 2.9 K/uL (0.7-4.9); Absolute Neutrophil 5.8 K/uL (1.8-8.0); Basophils % 0.2 % (0-1.3); Eosinophils % 5.1 % (0-4.4); Hematocrit 33.5 % (39.6-49.0); Lymphocytes % 28.3 % (15.3-44.8); MCH 30.9 pg (27.0-35.0); MCV 90.1 fL (80-100); Monocytes % 10.2 % (3.3-12.3); RBC Red Blood Cell Count 3.72 M/uL (4.33-5.43)
[2018-01-17 06:31] LABS: Protime INR 1.23
[2018-01-17] MEDS: PANTOPRAZOLE 40MG TABLET PO SCH (07:37)
[2018-01-17] MEDS: LAMOTRIGINE 200 MG TAB PO SCH ×2 (08:55→20:05)
[2018-01-17] MEDS: VIMPAT 200 MG PO SCH ×2 (08:55→20:07)
[2018-01-17 11:40] LABS: Urine Appearance CLOUDY; Urine Blood 3+ (NEG); Urine Color DK YELLOW; Urine Glucose NEGATIVE (NEG); Urine Protein 2+ (NEG); Urine Specific Gravity 1.025 (1.005-1.030); Urine pH 5.5 (5.0-7.0)
[2018-01-17 11:43] LABS: Urine Bilirubin 1+ (NEG); Urine Microscopic Reflex ORDER UMIC
[2018-01-17 11:51] LABS: Urine Bacteria 20-50 /HPF (NONE SEEN); Urine Culture Reflex Order REFLEXED; Urine RBC <5 /HPF (NONE SEEN)
[2018-01-17] MEDS ORDERED: FUROSEMIDE 20 MG/ 2ML VIAL IV ONE (12:00)
[2018-01-17] MEDS: HEPARIN/D5W 25,000 UNIT/500 ML BAG IV SCH (14:47)
[2018-01-17] MEDS: LIDOCAINE 5% PATCH TOP SCH (15:00)
--- NOTE | 2018-01-17 15:11 | PN ---
Date of Progress Note: 01/17/2018 Subjective: The patient is doing well. No nausea. No vomiting. His knee pain has been improved. The patient was admitted with intra-abdominal bleed. Objective: Vital Signs: When I saw the patient, blood pressure of 136/73, pulse of 85, afebrile. Chest: Clear to auscultation. Heart: S1, S2. Regular. Click for the aortic valve. Abdomen: Soft, nontender. Extremities: Trace edema. Neuro: Alert and oriented. Nonfocal. Laboratory Data: H and H 11.5/33.5. Sodium 136, potassium 3.9, bicarb 23, BUN 22, creatinine 0.8, c alcium 8.6. The patient's INR is 1.3. Medications: Current medications the patient is on include: 1.Heparin. 2.Coumadin 4 mg. 3.Atorvastatin. 4.Lasix, received last dose on the . 5.Magnesium oxide. 6.Heparin drip. 7.Hydrocodone. 8.Pantoprazole. Assessment And Plan: 1.Acute kidney injury secondary to prerenal, complicated with hyperkalemia, recover, resolved. 2.Hypertension, controlled, optimal. Continue current medication. 3.Edema secondary to overhydration. We will give the patient another dose of Lasix. 4.Hypercoagulopathy, complicated with intra-abdominal bleed, stabilized, currently on heparin drip a nd Coumadin. We will follow up with the primary. 5.Hypokalemia, stable, status post supplement. JOI/ANTOINETTE Voice ID: [id number] Report ID: [id number]
[2018-01-17] MEDS: WARFARIN SODIUM 4 MG TAB PO SCH (17:10)
--- NOTE | 2018-01-17 19:12 | PN ---
Date of Progress Note: 01/17/2018 Subjective: Patient seen and examined. Chart reviewed and case discussed with RN and Dr. Fauts. The patient is doing better. Still complaining of pain on his left leg. Review of Systems: Negative except as above. Medication List: Reviewed. Physical Examination: Vital Signs: Temperature 98.3, heart rate 97, blood pressure 114/59, respirations 18, O2 95% on room air. General: Awake, alert, oriented x3. Some mild distress due to pain. Otherwise doing well. Obese m ted. CV: S1, S2. No murmurs. Peripheral pulses present. Mechanical murmur present. Respiratory: Clear to auscultation bilaterally. No wheezing. Gastrointestinal: Abdomen is soft. Mild distention. No tenderness to palpation. Positive bowel so unds. Extremities: No clubbing, cyanosis, or edema. Neurologic: Nonfocal. Musculoskeletal: Pain in the left knee with flexion. Labs: WBC 10.3, H and H 11.5/33.5, platelets 268, neutrophils 56%. INR 1.23. Repeat UA shows 3+ bl ood, negative nitrite, negative leukocyte esterase, less than 5 rbc, 20 to 50 bacteria. Urine cultur e pending. Blood cultures negative. Assessment And Plan: A 67-year-old male with: 1.Hemoperitoneum with recent ventral hernia repair, resolving. 2.Acute blood loss anemia, status post multiple transfusions including PRBCs and FFP. H and H are s table. We will continue to monitor and transfuse as needed. 3.Mechanical aortic valve. Continue heparin drip. Coumadin has been restarted. INR is trending up slowly, currently at 1.23, subtherapeutic, goal is between 2.5 and 3.5. Appreciate cardiology input . 4.History of seizure disorder, stable. Continue seizure precautions. 5.Status post recent ventral hernia repair with hemoperitoneum. 6.Dyslipidemia. Continue statin. 7.Coronary artery disease, [place] artery and [place] heart without angina, stable. 8.Left knee pain. We will continue lidocaine patch. 9.Obesity. BMI of 32. 10.Acute respiratory distress, resolved, now on room air. 11.Acute kidney injury, resolved. Continue to monitor creatinine. Appreciate Nephrology input. 12.Gastrointestinal and deep venous thrombosis prophylaxis addressed. We will add Protonix. The pa tient complaining of gastroesophageal reflux symptoms. The patient's urine did show some rbc's less than 5, however, which is improved from previous UA. The patient is on anticoagulation. We will con tinue to monitor for now as the patient has mechanical valve and requires anticoagulation due to risk of clot. /ANTOINETTE Voice ID: [id number] Report ID: [id number]
[2018-01-17] MEDS: ATORVASTATIN 20 MG TAB PO SCH (20:05)
[2018-01-17] MEDS: ACETAMINOPHEN 500 MG TAB PO PRN (23:37)
[2018-01-18] MEDS: PANTOPRAZOLE 40MG TABLET PO SCH (05:48)
[2018-01-18 06:26] LABS: Absolute Lymphocytes (CBC) 3.2 K/uL (0.7-4.9); Absolute Monocytes 0.9 K/uL (0.1-1.3); Absolute Neutrophil 6.9 K/uL (1.8-8.0); Basophils % 0.3 % (0-1.3); Eosinophils % 5.9 % (0-4.4); Hematocrit 36.1 % (39.6-49.0); Lymphocytes % 26.9 % (15.3-44.8); MCH 31.5 pg (27.0-35.0); MCV 90.7 fL (80-100); MPV 8.2 fL (7.6-11.3); Monocytes % 7.8 % (3.3-12.3); RBC Red Blood Cell Count 3.98 M/uL (4.33-5.43)
[2018-01-18 06:38] LABS: Protime INR 1.26
[2018-01-18 06:51] LABS: Potassium 3.7 mmol/L (3.5-5.1)
[2018-01-18 07:07] LABS: Urine White Blood Cell Casts OK
[2018-01-18 07:08] LABS: Blood Morphology Comment NOT SEEN (NOT SEEN); Platelet Estimate ADEQ
[2018-01-18] MEDS: VIMPAT 200 MG PO SCH ×2 (09:00→20:23)
[2018-01-18] MEDS: LIDOCAINE 5% PATCH TOP SCH (09:00)
[2018-01-18] MEDS: LAMOTRIGINE 200 MG TAB PO SCH ×2 (11:58→20:23)
--- NOTE | 2018-01-18 12:10 | RAD REPORT ---
EXAM DESCRIPTION: RAD - Knee Left 2 View - 01/18/2018 11:58 am CLINICAL HISTORY: Knee pain COMPARISON: July 2012 FINDINGS: No fracture, dislocation or periosteal reaction.Small joint effusion is present. No joint space narrowing. No soft tissue abnormality. Clinical concerns for internal derangement or occult bony injury could be further assessed with MR im aging. IMPRESSION: Small joint effusion with no acute bone finding.
--- NOTE | 2018-01-18 12:19 | RAD REPORT ---
EXAM DESCRIPTION: RAD - Esophagram Only - 01/18/2018 11:58 am CLINICAL HISTORY: Dysphagia COMPARISON: CT abdomen January 10, 2018 FINDINGS: An esophagram was performed and shows normal bolus formation and normal initiation of swal lowing. Primary peristalsis of the upper thoracic esophagus is normal. No esophageal spasm or signifi cant tertiary contractions noted. There is a decrease in primary peristalsis in the distal 1/3 of the thoracic esophagus. This results in delayed clearing of contrast from the distal esophagus. At the G E junction, there is focal narrowing or stricture that did not relax over the course of the examinati on. This is too small for a 13 millimeter barium tablet to pass. This is favored to be a stricture ra ther than extrinsic or intrinsic mass. The CT examination of the GE junction did not show evidence fo r a mass lesion. No reflux was observed and no hiatal hernia observed. Fluoro time was 2 minutes 52 seconds. There were 12 fluoroscopic cine loop acquisitions acquired. 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 No intrinsic or extrinsic mass lesions seen. The CT study of January 10 did not show a mass near the GE junction. Decreased primary peristalsis in the distal esophagus without spasm or tertiary contraction. This res ulted in delayed clearing of contrast across the GE junction.
[2018-01-18] MEDS: HEPARIN/D5W 25,000 UNIT/500 ML BAG IV SCH (13:17)
[2018-01-18] MEDS: WARFARIN SODIUM 5 MG TAB PO SCH (18:13)
--- NOTE | 2018-01-18 19:40 | PN ---
Subjective: The patient is seen and examined, chart reviewed, and case discussed with RN and Dr. Anna rhoades. The patient continues to complain about some dysphagia and has not had any improvement with Pro tonix. The patient is having difficulty this morning with breakfast. Review of Systems: Negative except as above. Medications: List reviewed. Objective: Vital Signs: Temperature 97.3, heart rate 86, blood pressure 111/65, respirations 18, O2 95% on room air. General: Awake, alert, oriented x3, in some mild distress, elderly male, somewhat ill-appearing. CV: S1, S2. Regular rate and rhythm. Peripheral pulses present. Respiratory: Moving air well bilaterally. No wheezing. No stridor. Gastrointestinal: Abdomen is soft. Mild tenderness to palpation in the epigastric region. No diste ntion. No guarding or rigidity. Bowel sounds positive. Extremities: No clubbing, cyanosis, or edema. Musculoskeletal: Right knee decreased range of motion and pain with flexion. Neurologic: Nonfocal. Laboratory Data: Sodium 136, potassium 3.7, chloride 102, CO2 25, BUN 25, creatinine 1, glucose 90, calcium 8.5. WBC 11.7, H and H 12.5 and 36.1, platelets 295, neutrophils 59%. INR 1.26. Esophagram shows suspected stricture at the GE junction with persistent narrowing throughout the examination. No intrinsic or extrinsic mass lesions seen. Decreased primary peristalsis in the distal esophagus w ithout spasm or tertiary contraction. This resulted in delayed clearing of contrast across the GE ju nction. The x-ray of the left side shows small joint effusion with no acute bone finding. Assessment: A 67-year-old male with: 1.Hemoperitoneum with recent ventral hernia repair, resolving. 2.Acute blood loss anemia, status post multiple transfusions including 8 units of PRBCs and 4 units of FFP. H and H are now stable. We will continue to monitor and transfuse as needed. 3.Mechanical aortic valve. The patient is on heparin drip. Coumadin dose will be adjusted today as INR is still subtherapeutic, goal is between 2.5 [address] Haynes's input. 4.History of seizure disorder, stable. We will continue seizure precautions. 5.Dysphagia. Esophagram shows stricture. Dr. Chawla has been consulted. The patient is scheduled for EGD in a.m. We will keep on liquids for now. 6.Status post recent ventral hernia repair with hemoperitoneum. 7.Dyslipidemia. We will continue statin. 8.Coronary artery disease, [place] artery and [place] heart without angina, stable. 9.Left knee pain secondary to effusion. The patient refused lidocaine patch infusing. 10.Obesity, body mass index of 32. 11.Acute respiratory distress, resolved. 12.Acute kidney injury, resolved. We will continue to monitor creatinine. Appreciate Nephrology in put. 13.Gastrointestinal and deep venous thrombosis prophylaxis. Continue Protonix. The patient is on h eparin drip. Plan: Continue to monitor INR. The patient unfortunately will not qualify for LTAC placement. Anti cipate EGD in a.m. for stricture of the esophagus. /ANTOINETTE Voice ID: [id number] Report ID: [id number]
[2018-01-18] MEDS: ATORVASTATIN 20 MG TAB PO SCH (20:23)
[2018-01-19] MEDS: HEPARIN/D5W 25,000 UNIT/500 ML BAG IV SCH ×2 (01:39→22:51)
--- NOTE | 2018-01-19 02:55 | PN ---
Date of Progress Note: 01/18/2018 Chief Complaint: Acute kidney injury, prerenal azotemia. The patient was found to have hyperkalemia and potassium level is currently controlled. Hyperkalemia resolved upon treatment. There is persistent prerenal azotemia, although creatinine level improved to baseline. Review of Systems: Denies PND, orthopnea. Denies headache, vision changes. Is complaining of some abdominal discomfort. Physical Examination: Lungs: Clear to auscultation bilaterally. Heart: S1, S2. Abdomen: Soft, benign. Extremities: Trace edema. Laboratory Data: BUN 22, creatinine 0.8. Sodium 146, potassium 3.9, bicarbonate 23, calcium 8.6. Impression And Plan: 1. Acute kidney injury. Continue IV fluids to prevent renal hypoperfusion. The patient developed prerenal azotemia. Hyperkalemia was treated and resolved. Monitor electrolytes. Avoid high potassium intake. 2. Edema secondary to fluid overload. The patient received Lasix. Continue to monitor daily weight and fluid balance. 3. Hyperkalemia, resolved. Monitor potassium level and check magnesium and phosphorus level. AC/ANTOINETTE Voice ID: [id number] Report ID: [id number] ANDREW
[2018-01-19] MEDS: PANTOPRAZOLE 40MG TABLET PO SCH (06:13)
[2018-01-19 06:34] LABS: Absolute Lymphocytes (CBC) 2.4 K/uL (0.7-4.9); Absolute Neutrophil 6.6 K/uL (1.8-8.0); Basophils % 0.4 % (0-1.3); Eosinophils % 5.6 % (0-4.4); Hematocrit 32.9 % (39.6-49.0); Lymphocytes % 22.6 % (15.3-44.8); MCH 31.7 pg (27.0-35.0); Monocytes % 9.2 % (3.3-12.3); Protime INR 1.41; RBC Red Blood Cell Count 3.65 M/uL (4.33-5.43)
[2018-01-19 06:45] LABS: Potassium 3.6 mmol/L (3.5-5.1)
[2018-01-19] MEDS: LAMOTRIGINE 200 MG TAB PO SCH ×2 (09:00→20:18)
[2018-01-19] MEDS: VIMPAT 200 MG PO SCH ×2 (09:00→20:18)
[2018-01-19 09:01] LABS: Blood Morphology Comment NOTED (NOT SEEN); Platelet Estimate ADEQ; Poikilocytosis 1+; Polychromasia 1+; Urine White Blood Cell Casts OK
[2018-01-19] MEDS ORDERED: SIMETHICONE 40 MG/ 0.6 ML ONE (11:21)
[2018-01-19] MEDS ORDERED: Ringers Lactate 1,000 ML IV ONE (11:27)
[2018-01-19] MEDS ORDERED: PROPOFOL 200 MG/20 ML VIAL IV ONE (11:49)
[2018-01-19] MEDS ORDERED: LIDOCAINE 1% MPF 5 ML VIAL ONE (11:49)
--- NOTE | 2018-01-19 13:14 | ENDO RPT ---
[address], [address] EGD PROCEDURE REPORT EXAM DATE: 01/19/2018 PATIENT NAME: Abdirizak Diaz MR#: [id number] BIRTHDATE: 1950 ATTENDING: Dinesh Chawla Dr STATUS: inpatient - [facility] RESPIRATORY THERAPIST: Dayna Williamson and Letitia Betts RN INDICATIONS: The patient is a 67 yr old Male here for an EGD due to dysphagia and GERD PROCEDURE PERFORMED: EGD with biopsy MEDICATIONS: Per Anesthesia. TOPICAL ANESTHETIC: none CONSENT: The patient understands the risks and benefits of the procedure and understands that these risks include, but are not limited to: sedation, allergic reaction, infection, perforation and/or bleeding. Alternative means of evaluation and treatment include, among others: physical exam, x-rays, and/or surgical intervention. The patient elects to proceed with this endoscopic procedure. DESCRIPTION OF PROCEDURE: During intra-op preparation period all mechanical medical equipment was checked for proper function. Hand hygiene and appropriate measures for infection prevention was taken. Procedure, possible complications, and alternatives including but not limited to the possibility of bleeding, perforation, tear, infection, sepsis, need for surgery, need for blood transfusion, and anesthesia related complications were explained to the patient. After the risks, benefits and alternatives of the procedure were thoroughly explained, Informed consent was verified, confirmed and timeout was successfully executed by the treatment team. The patient was placed in the left lateral position. The patient was anesthetized with topical anesthesia. Through the anesthetized oropharyngeal area, the scope was passed without any difficulty. The Pentax EG-[id number] ([id number]) endoscope was introduced through the mouth and advanced to the second portion of the duodenum. Retroflexed views revealed an ulcer. The gastroscope was then slowly withdrawn and removed. Plaques were found in the total esophagus. LA Class D esophagitis was found in the lower esophagus. A stricture was found in the total esophagus. Inflammation was found in the gastroesophageal junction. With standard forceps, a biopsy was obtained and sent to pathology. An ulcer was found in the cardia. Severe gastritis was found in the antrum. Multiple biopsies were obtained and sent to pathology. Multiple ulcers were found in the antrum. Duodenitis was found in the bulb and descending duodenum. ADVERSE EVENTS: There were no complications. IMPRESSIONS: 1. Numerous yellow-white 1-2 mm plaques in the total esophagus 2. LA Class D esophagitis in the lower esophagus with oozing of fresh heme before intubation past area / abrasion with endoscope 3. 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 Schatzki's ring in the distal esophagus (no dilatation with esophagus already bleeding before intubation past area(s) 5. Nodular mucosa at the gastroesophageal junction, s/p biopsy 6. Large 2.0 X 0.7 cm clean-based ulcer at the cardia 7. Severe gastritis in the antrum, s/p biopsies 8. Multiple (three, 5/3/2 mm) clean-based ulcers in the antrum 9. Duodenitis in the bulb > descending duodenum RECOMMENDATIONS: 1. await biopsy results 2. acid suppression therapy 3. anti-reflux regimen 4. Diflucan therapy REPEAT EXAM: Return in 8 week(s) for EGD. Dinesh Chawla Dr eSigned: Dinesh Chawla Dr 01/19/2018 1:04 PM cc: CPT CODES: ICD9 CODES: PATIENT NAME: Abdirizak Diaz MR#: [id number]
--- NOTE | 2018-01-19 16:45 | P.PN ---
Subjective Date of Service: 01/19/18 Chief Complaint: HEMOPERITONEUM Seen and examined at bedside, chart reviewed and case discussed with RN. Patient continues to complain about dysphasia and states that the Protonix has not really helped. In the time of the examination, patient is sitting up in bed eating ice cream and sorbet. Review of Systems 10-point ROS is otherwise unremarkable (As noted above) Physical Examination - Vital Signs Temperature: 98.1 F Blood Pressure: 119/78 Pulse: 85 Respirations: 18 Pulse Ox (%): 96 - Physical Exam General: Alert, In no apparent distress HEENT: Atraumatic, PERRLA, EOMI Neck: Supple, JVD not distended Respiratory: Clear to auscultation bilaterally, Normal air movement Cardiovascular: Regular rate/rhythm, Normal S1 S2 Gastrointestinal: Normal bowel sounds, No rebound, No guarding, Tenderness ( Mild tenderness in epigastric region) Neurological: Normal speech, Normal tone, Normal affect - Studies Medications List Reviewed: Yes Assessment And Plan - Plan - Hemoperitoneum, with recent ventral hernia repair: Resolving - Dysphagia: Pending EGD with Dr. Chawla today. - Acute blood-loss anemia, status post multiple transfusions: In his received 8 units PRBCs and 4 units of FFP. H&H now stable. Continue to monitor and transfuse as needed - Mechanical aortic valve: Patient is currently on heparin drip undergoing bridging to Coumadin. He is currently on 5 mg Coumadin, day 2. INR is still subtherapeutic, and goal is between 2.5 and 3.5. Will check INR tomorrow morning, will make adjustments to Coumadin dosage for tomorrow as needed. - History of seizure disorder: Stable. Continue seizure precautions in home medications. - History of recent ventral hernia repair, with hemoperitoneum. Plan: Work on bridging to Coumadin and getting to therapeutic INR. Will follow up with Dr. espinoza regarding the EGD recommendations.
[2018-01-19] MEDS: WARFARIN SODIUM 5 MG TAB PO SCH (17:24)
[2018-01-19] MEDS: ATORVASTATIN 20 MG TAB PO SCH (20:16)
[2018-01-19] MEDS: NYSTATIN 500,000 UNIT/5 ML UDC PO SCH (20:16)
[2018-01-20 05:41] LABS: Protime INR 1.58
[2018-01-20] MEDS: PANTOPRAZOLE 40MG TABLET PO SCH (05:48)
[2018-01-20] MEDS: LAMOTRIGINE 200 MG TAB PO SCH ×2 (09:00→21:22)
[2018-01-20] MEDS: NYSTATIN 500,000 UNIT/5 ML UDC PO SCH ×2 (09:08→21:02)
[2018-01-20] MEDS: VIMPAT 200 MG PO SCH ×2 (10:24→21:00)
[2018-01-20] MEDS ORDERED: KCL 20 MEQ/100 mL IVPB 20 MEQ/100 ML BAG IV SCH (11:00)
[2018-01-20] MEDS ORDERED: lamoTRIgine 100 MG TAB PO ONE (11:00)
[2018-01-20] MEDS ORDERED: POTASSIUM CL SA 10 MEQ TAB PO ONE (11:31)
--- NOTE | 2018-01-20 14:00 | P.PN ---
Subjective Date of Service: 01/20/18 Chief Complaint: HEMOPERITONEUM Seen and examined at bedside, chart reviewed and case discussed with RN. Patient continues to complain about dysphasia and states that the Protonix has not really helped. In the time of the examination, patient is sitting up in bed eating ice cream and sorbet. Review of Systems As noted above Physical Examination - Vital Signs Temperature: 97.6 F Blood Pressure: 129/73 Pulse: 81 Respirations: 18 Pulse Ox (%): 96 - Physical Exam General: Alert, In no apparent distress HEENT: Atraumatic, PERRLA, EOMI Neck: Supple, JVD not distended Respiratory: Clear to auscultation bilaterally, Normal air movement Cardiovascular: Regular rate/rhythm, Normal S1 S2 Gastrointestinal: Normal bowel sounds, No tenderness Integumentary: No rashes Neurological: Normal speech, Normal tone, Normal affect - Studies Medications List Reviewed: Yes Assessment And Plan - Plan - Hemoperitoneum, with recent ventral hernia repair: Resolving - Dysphagia: Pending EGD with Dr. Chawla today. - Acute blood-loss anemia, status post multiple transfusions: In his received 8 units PRBCs and 4 units of FFP. H&H now stable. Continue to monitor and transfuse as needed - Mechanical aortic valve: Patient is currently on heparin drip undergoing bridging to Coumadin. He is currently on 5 mg Coumadin, day 2. INR is still subtherapeutic, and goal is between 2.5 and 3.5. Will check INR tomorrow morning, will make adjustments to Coumadin dosage for tomorrow as needed. - History of seizure disorder: Stable. Continue seizure precautions in home medications. - History of recent ventral hernia repair, with hemoperitoneum. Plan: Work on bridging to Coumadin and getting to therapeutic INR. Will follow up with Dr. espinoza regarding the EGD recommendations.
--- NOTE | 2018-01-20 15:09 | PN ---
Date of Progress Note: 01/20/2018 Subjective: The patient underwent EGD yesterday, tolerated very well, found to have a duodenal nodul e with thrush. Physical Examination: Vital Signs: Blood pressure 129/73, pulse of 82, afebrile. Chest: Clear to auscultation. Heart: S1, S2. Regular. Abdomen: Soft, nontender. Extremities: Trace edema. Laboratory Data: WBC 10.6, H and H 11.6/32.9, platelet 292. Sodium 137, potassium 3.6, bicarb 24, B UN 21, creatinine 0.9, calcium 8.6. INR of 1.58. Current Medications: The patient on its include: 1.Nystatin. 2.Atorvastatin. 3.Coumadin. 4.Lasix. 5.Pantoprazole. Assessment And Plan: 1.Acute kidney injury secondary to prerenal secondary to intraperitoneal hemorrhage superimposed wit h ARB, recover, resolve. 2.Hyperkalemia, resolved. 3.Hypokalemia, currently I am going to replace. 4.Hypertension, controlled, optimal. Off blood pressure medication. Continue to monitor. 5.Esophagitis. The patient was started on nystatin. We will follow up with GI. 6.Aortic valve replacement. Currently on Coumadin and heparin. We will follow up with Cardiology. TISH Voice ID: [id number] Report ID: [id number]
[2018-01-20] MEDS: HEPARIN/D5W 25,000 UNIT/500 ML BAG IV SCH (15:47)
[2018-01-20] MEDS: WARFARIN SODIUM 5 MG TAB PO SCH (17:18)
[2018-01-20] MEDS: ATORVASTATIN 20 MG TAB PO SCH (21:20)
[2018-01-21] MEDS: ACETAMINOPHEN 500 MG TAB PO PRN (03:31)
[2018-01-21] MEDS: PANTOPRAZOLE 40MG TABLET PO SCH (05:31)
[2018-01-21 07:49] LABS: Protime INR 1.74
[2018-01-21] MEDS: NYSTATIN 500,000 UNIT/5 ML UDC PO SCH ×2 (08:42→21:53)
[2018-01-21] MEDS: VIMPAT 200 MG PO SCH ×2 (08:43→21:54)
[2018-01-21] MEDS: LAMOTRIGINE 200 MG TAB PO SCH ×2 (08:43→21:52)
[2018-01-21] MEDS: HEPARIN/D5W 25,000 UNIT/500 ML BAG IV SCH (08:45)
[2018-01-21] MEDS ORDERED: POTASSIUM 25 MEQ EFFERV TAB PO ONE (12:24)
--- NOTE | 2018-01-21 13:09 | P.PN ---
Subjective Date of Service: 01/21/18 Chief Complaint: HEMOPERITONEUM Seen and examined at bedside, chart reviewed and case discussed with RN. Patient continues to complain about dysphasia though states that it has improved. In the time of the examination, patient is sitting up in bed eating ice cream and sorbet. Review of Systems as noted above Physical Examination - Vital Signs Temperature: 97.9 F Blood Pressure: 114/68 Pulse: 80 Respirations: 18 Pulse Ox (%): 95 - Physical Exam General: Alert, In no apparent distress HEENT: Atraumatic, PERRLA, EOMI Neck: Supple, JVD not distended Respiratory: Clear to auscultation bilaterally, Normal air movement Cardiovascular: Regular rate/rhythm, Normal S1 S2 Gastrointestinal: Normal bowel sounds, No tenderness Musculoskeletal: No tenderness Integumentary: No rashes Neurological: Normal speech, Normal tone, Normal affect - Studies Medications List Reviewed: Yes Assessment And Plan - Plan - Hemoperitoneum, with recent ventral hernia repair: Resolving - Dysphagia: s/p EGD with Dr. Chawla today. Continue Nystatin, swish and swallow for thrush. Discussed outpatient follow up after discharge. - Acute blood-loss anemia, status post multiple transfusions: In his received 8 units PRBCs and 4 units of FFP. H&H now stable. Continue to monitor and transfuse as needed - Mechanical aortic valve: Patient is currently on heparin drip undergoing bridging to Coumadin. He is currently on 5 mg Coumadin, day 3. INR is still subtherapeutic at 1.74 and goal is between 2.5 and 3.5. Will give one time dose of 7.5 mg tomorrow and then continue 5 mg (5% weekly increase)/ Will check INR tomorrow morning, will make adjustments to Coumadin dosage for tomorrow as needed. - History of seizure disorder: Stable. Continue seizure precautions in home medications. - History of recent ventral hernia repair, with hemoperitoneum. Plan: Work on bridging to Coumadin and getting to therapeutic INR.
--- NOTE | 2018-01-21 16:46 | PN ---
Date of Progress Note: 01/21/2018 The patient had no event, doing well. Physical Examination: Vital Signs: Blood pressure 114/68, pulse of 80. Afebrile. Chest: Clear to auscultation. Heart: S1, S2. Regular. Aortic valve click. Abdomen: Soft. Nontender. Extremities: No edema. Laboratory Data: WBC 10.6, H and H 10.6/32.9, platelet 292. Sodium 137, potassium 3.6, bicarb 24, B UN 21, creatinine 0.9. Calcium 8.6. Medications: Current medications the patient on its include: 1.Nystatin. 2.Atorvastatin. 3.Tylenol. 4.Zofran. 5.Pantoprazole. Assessment And Plan: 1.Acute kidney injury secondary to prerenal secondary to intraperitoneal hemorrhage, recover, resolv ed. 2.Hypokalemia. I will supplement. 3.Hypertension, controlled, optimal. Continue current treatment. 4.Aortic valve replacement. Continue Coumadin and heparin. We will follow up INR with Cardiology. TISH Voice ID: [id number] Report ID: [id number]
[2018-01-21] MEDS ORDERED: WARFARIN SODIUM 7.5 MG TAB PO ONE (17:00)
--- NOTE | 2018-01-21 18:40 | PN ---
Date of Progress Note: 01/21/2018 Subjective: Keen doing well. No complain. Having good bowel movement, eating well, ambulating. No shortness of breath. No chest pain. No melena. No hematochezia. Objective: Chest: Clear. Abdomen: Soft and depressible. Nontender, nondistended. Bowel sounds positive. Intact midline inc ision. Extremities: No calf tenderness. Laboratory Data: Hemoglobin is 11.6 with an INR of 1.74. Plan: Follow my office in 1 week. The patient is right now monitored by medical service to restart his therapeutic correlation go. No heavy lifting. AYALA/ANTOINETTE Voice ID: [id number] Report ID: [id number]
[2018-01-21] MEDS: ATORVASTATIN 20 MG TAB PO SCH (21:54)
[2018-01-22] MEDS: HEPARIN/D5W 25,000 UNIT/500 ML BAG IV SCH (02:33)
[2018-01-22] MEDS: PANTOPRAZOLE 40MG TABLET PO SCH (06:38)
[2018-01-22 07:11] LABS: Protime INR 2.3
[2018-01-22] MEDS: LAMOTRIGINE 200 MG TAB PO SCH ×2 (08:32→20:07)
[2018-01-22] MEDS: NYSTATIN 500,000 UNIT/5 ML UDC PO SCH ×2 (08:32→20:06)
[2018-01-22] MEDS: VIMPAT 200 MG PO SCH ×2 (08:33→20:07)
[2018-01-22] MEDS ORDERED: DIPHENHYDRAMINE 25 MG TAB/CAP PO PRN (10:41)
--- NOTE | 2018-01-22 15:04 | P.PN ---
Subjective Date of Service: 01/22/18 Chief Complaint: HEMOPERITONEUM Seen and examined at bedside, chart reviewed and case discussed with RN. Patient continues to complain about dysphasia though states that it has improved. In the time of the examination, patient is sitting up in bed eating over and drinking Ensure. Review of Systems As noted above Physical Examination - Vital Signs Temperature: 97.1 F Blood Pressure: 140/66 Pulse: 89 Respirations: 17 Pulse Ox (%): 98 - Physical Exam General: Alert, In no apparent distress HEENT: Atraumatic, PERRLA, EOMI Neck: Supple, JVD not distended Respiratory: Clear to auscultation bilaterally, Normal air movement Cardiovascular: Regular rate/rhythm, Normal S1 S2 Gastrointestinal: Normal bowel sounds, No tenderness Musculoskeletal: No tenderness Integumentary: No rashes Neurological: Normal speech, Normal tone, Normal affect - Studies Medications List Reviewed: Yes Assessment And Plan - Plan - Hemoperitoneum, with recent ventral hernia repair: Resolving - Dysphagia: s/p EGD with Dr. Chawla performed. Continue Nystatin, swish and swallow for thrush. Discussed outpatient follow up for a repeat EGD after discharge. - Acute blood-loss anemia, status post multiple transfusions: During his stay, he has received 8 units PRBCs and 4 units of FFP. H&H now stable. Continue to monitor and transfuse as needed - Mechanical aortic valve: Patient is currently on heparin drip undergoing bridging to Coumadin. He is currently on 5 mg Coumadin, day 3. INR is still subtherapeutic at 1.74 and goal is between 2.5 and 3.5. I gave one time dose of 7.5 mg yesterday and then continue 5 mg (5% weekly increase). Will check INR tomorrow morning, will make adjustments to Coumadin dosage for tomorrow as needed. - History of seizure disorder: Stable. Continue seizure precautions in home medications. - History of recent ventral hernia repair, with hemoperitoneum. Plan: Work on bridging to Coumadin and getting to therapeutic INR.
[2018-01-22] MEDS ORDERED: WARFARIN SODIUM 5 MG TAB PO SCH (17:00)
[2018-01-22] MEDS: ATORVASTATIN 20 MG TAB PO SCH (20:09)
[2018-01-23] MEDS: HEPARIN/D5W 25,000 UNIT/500 ML BAG IV SCH (00:38)
[2018-01-23 01:02] LABS: Protime INR 3.12
--- NOTE | 2018-01-23 01:37 | PN ---
Date of Progress Note: 01/22/2018 Chief Complaint: Acute kidney injury secondary to prerenal azotemia. The patient responded to IV fl uids. Renal function stabilized and remains at baseline. Review of Systems: Denies fever, chills. Physical Examination: Lungs: Clear to auscultation bilaterally. Heart: S1, S2. Abdomen: Soft, benign. Extremities: No edema. Laboratory Data: BUN 21, creatinine 0.9, sodium 137, potassium 3.6, bicarbonate 24, calcium 8.6. Impression And Plan: 1.Acute kidney injury secondary to intraperitoneal hemorrhage. The patient recovered. Renal functi on improved and acute kidney failure resolved. 2.Hypokalemia, mild. The patient received supplementation. 3.Hypertension. Blood pressure control. Continue current treatment. 4.Aortic valve replacement. The patient on Coumadin and INR will be rechecked by primary team. AC/ANTOINETTE Voice ID: [id number] Report ID: [id number]
[2018-01-23] MEDS: ACETAMINOPHEN 500 MG TAB PO PRN (06:06)
[2018-01-23] MEDS: PANTOPRAZOLE 40MG TABLET PO SCH (06:18)
[2018-01-23 06:46] LABS: Protime INR 2.98
--- NOTE | 2018-01-23 08:00 | P.PN ---
Date of Service: 01/22/18 INR almost therapeutic. Recheck right now and if therapeutic DC heparin.
[2018-01-23] MEDS: NYSTATIN 500,000 UNIT/5 ML UDC PO SCH (09:02)
[2018-01-23] MEDS: LAMOTRIGINE 200 MG TAB PO SCH (09:03)
[2018-01-23] MEDS: VIMPAT 200 MG PO SCH (09:04)
--- NOTE | 2018-01-24 03:20 | PN ---
Date of Progress Note: 01/23/2018 Chief Complaint: Acute kidney injury secondary to prerenal azotemia. History Of Present Illness: The patient responded to IV fluids. Renal function improved and stabili zed, remain stable at baseline. Review of Systems: Denies fever, chills. Physical Examination: Lungs: Clear to auscultation bilaterally. Heart: S1, S2. Abdomen: Soft, benign, nontender. Extremities: No edema. Laboratory Data: BUN 21, creatinine 0.9, potassium 3.6, bicarbonate 24, and calcium 8.6. Impression And Plan: 1.Acute kidney injury secondary to intraperitoneal hemorrhage. The patient recovered, renal functio n improved to baseline. Acute kidney injury, resolved. Monitor fluid balance and electrolytes. The patient will avoid nonsteroidal anti-inflammatory medication. 2.Recent episodes of hypokalemia, replace potassium level, improved. 3.Hypertension, blood pressure controlled. 4.Aortic valve replacement. The patient on Coumadin. INR will be checked by primary team. AC/ANTOINETTE Voice ID: [id number] Report ID: [id number]
--- NOTE | 2018-01-24 13:49 | DS ---
Date of Discharge: 01/23/2018 Discharge Diagnoses: 1.Hemoperitoneum with status post ventral hernia repair. 2.Dysphagia with thrush, on EGD. 3.Anemia secondary to hemoperitoneum, resolved. 4.Mechanical aortic valve, on anticoagulation. 5.History of seizure disorder. 6.Acute renal failure, resolved. Consults: 1.Nephrology. 2.General Surgery. Procedure: 1.CT of the abdomen on admission showed moderate hemoperitoneum. 2.Venous Doppler of the left lower extremity was negative. 3.Barium swallow on the 18 of January showed stricture at the GE junction with persistent narrowin g throughout examination without extrinsic mass. 4.EGD done by Dr. Chawla on January 23 showed thrush. History Of Present Illness: Please refer to Dr. Mclaughlin admission note. Hospital Course: Initially, the patient presented with hemoperitoneum which apparently started after hernia repair done by general surgery previously. Postop, apparently the patient had severe pain in the emergency room. He was evaluated, found to have hemoperitoneum. The patient receives platelet, FFP, and red blood cell transfusion, a total of 8 packed red blood cells, 4 units of FFP. H and H w ere stable and the patient was observed over anticoagulation initially and then he was started on hep eloise drip and when his H and H were stable, he was switched to Coumadin. Today, his INR is therapeut ic at 2.98. He was discharged on 5 mg of Coumadin for today and tomorrow. He will check with Dr. Donny barreto on Thursday, his INR and decide what is the appropriate dose of Coumadin as outpatient. Again, h e would need to go in the morning, however, if the INR goes up, he understand the risk of significant bleeding. The patient need to be on anticoagulation because of his mechanical valve. Left lower ex tremity Doppler done and showed negative for DVT. The patient complained of difficulty swallowing wh ile he is inpatient. EGD done and thrush. The patient was started on nystatin swish and swallow. H e will continue on that until he sees Dr. Chawla in 2 weeks as outpatient and maybe repeat. Discharge Condition: Stable. Discharge Diet: Advance as tolerated but cardiac diet. Discharge Activity: Would recommend discharge activity as tolerated. Discharge Physical Examination: Vital Signs: Blood pressure is 119/71, respiratory rate 18, pulse 7 6, temperature 97.7. General: He is alert and oriented x3. Does not look in any distress. HEENT: Atraumatic, normocephalic. PERRLA. Oral mucosa is moist. Neck: Supple. No JVD. No carotid bruits. Chest: Clear to auscultation. Good air entry. Heart: Regular rate and rhythm. S1, S2 normal. No gallop or murmur. Abdomen: Soft, nontender. No masses. No hepatosplenomegaly. Positive bowel sounds. Extremities: No clubbing, cyanosis, or edema. No calf tenderness. Neurologic: Grossly intact. Discharge Medications: 1.Prescription given for nystatin 100,000 per mL q.2 every 6 hours for the next 14 days. 2.Protonix 40 mg daily. There is no other medication presumed from home except for Coumadin, he karmen l be on 5 mg daily today and tomorrow and then, Thursday will check INR with Dr. Haynes and Dr. Mata i will adjust the Coumadin dose as needed. The patient advised to call the ER or come back if he sta rts to have dizziness, lightheaded, or severe abdominal pain. LEESA/MODL Voice ID: [id number] Report ID: [id number]
== END 2018-01-23 15:43 | disposition home or self-care (01) | DRG 393 ==
LOC: ER 02:29 → ERHOLD 04:30 → 3RD-ICU 07:28 → 2ND 01-15 14:25
PROVIDERS: ADMIT Family Medicine; ATTEND Internal Medicine
PROC: 30233K1 Transfusion of Nonautologous Frozen Plasma into Peripheral Vein, Percutaneous Approach (ICD-10-PCS; principal; 2018-01-10)
PROC: 30233N1 Transfusion of Nonautologous Red Blood Cells into Peripheral Vein, Percutaneous Approach (ICD-10-PCS; 2018-01-10)
PROC: 30233R1 Transfusion of Nonautologous Platelets into Peripheral Vein, Percutaneous Approach (ICD-10-PCS; 2018-01-10)
PROC: 0DB48ZX Excision of Esophagogastric Junction, Via Natural or Artificial Opening Endoscopic, Diagnostic (ICD-10-PCS; 2018-01-19)
PROC: 0DB78ZX Excision of Stomach, Pylorus, Via Natural or Artificial Opening Endoscopic, Diagnostic (ICD-10-PCS; 2018-01-19)
DX: K66.1 Hemoperitoneum (principal); N17.0 Acute kidney failure with tubular necrosis; K22.11 Ulcer of esophagus with bleeding; D68.9 Coagulation defect, unspecified; D62 Acute posthemorrhagic anemia; B37.0 Candidal stomatitis; E78.5 Hyperlipidemia, unspecified; Z95.4 Presence of other heart-valve replacement; I25.10 Atherosclerotic heart disease of native coronary artery without angina pectoris; G40.909 Epilepsy, unspecified, not intractable, without status epilepticus; I95.9 Hypotension, unspecified; D72.829 Elevated white blood cell count, unspecified; E11.9 Type 2 diabetes mellitus without complications; E66.9 Obesity, unspecified; Z68.32 Body mass index [BMI] 32.0-32.9, adult; E83.39 Other disorders of phosphorus metabolism; R06.03 Acute respiratory distress; E87.5 Hyperkalemia; E87.6 Hypokalemia; R13.10 Dysphagia, unspecified; K22.2 Esophageal obstruction; K29.00 Acute gastritis without bleeding; K29.80 Duodenitis without bleeding
CPT/HCPCS: 36415; 51702; 71045; 74176; 74220; 76377; 80048; 80053; 80076; 81003; 81015; 82533; 83605; 83690; 83735; 83880; 84100; 84439; 84443; 84484; 85014; 85018; 85025; 85044; 85379; 85384; 85610; 85730; 86022; 86850; 86900; 86901; 87040; 87077; 87086; 87088; 87186; 88302; 88305; 88312; 88313; 93005; 93971; 97163; 99285; J0690; J1940; J2175; J2250; J2405; J2704; J2710; J3010; J3430; J7030; P9016; P9035; P9059

== ENCOUNTER 2018-02-04 14:32 | Inpatient (IN) | payer OTHER ==
[2018-02-04 15:47] LABS: Absolute Lymphocytes (CBC) 2.6 K/uL (0.7-4.9); Absolute Monocytes 0.8 K/uL (0.1-1.3); Absolute Neutrophil 3.8 K/uL (1.8-8.0); Basophils % 0.3 % (0-1.3); Eosinophils % 0.5 % (0-4.4); Hematocrit 41.6 % (39.6-49.0); Lymphocytes % 35.6 % (15.3-44.8); MCH 30.5 pg (27.0-35.0); MCV 91.2 fL (80-100); MPV 7.9 fL (7.6-11.3); Monocytes % 10.8 % (3.3-12.3); RBC Red Blood Cell Count 4.56 M/uL (4.33-5.43)
--- NOTE | 2018-02-04 15:58 | RAD REPORT ---
EXAM DESCRIPTION: Carli Single View02/04/2018 3:31 pm CLINICAL HISTORY: Hemoptysis COMPARISON: December 2017 FINDINGS: The lungs appear clear of acute infiltrate. The heart is normal size Postsurgical changes involve the chest. IMPRESSION: No acute abnormalities displayed
[2018-02-04 16:10] LABS: ALT/SGPT 20 U/L (12-78); AST/SGOT 23 U/L (15-37); Albumin 3.2 g/dL (3.4-5.0); Alkaline Phosphatase 86 U/L (45-117); BUN Blood Urea Nitrogen 33 mg/dL (7-18); Bicarbonate 26 mmol/L (21-32); Bilirubin Direct 0.4 mg/dL (0-0.2); Bilirubin Total 1.2 mg/dL (0.2-1.0); Glucose Level 104 mg/dL (74-106); Lipase 237 U/L (73-393); Magnesium 2.3 mg/dL (1.8-2.4); NT PRO-BNP 215 pg/mL (<125); Sodium Level 137 mmol/L (136-145); Troponin (Emerg Dept Use Only) < 0.02 ng/mL (0.0-0.045)
[2018-02-04] MEDS ORDERED: ONDANSETRON 4 MG/2 ML VIAL ONE (16:10)
[2018-02-04] MEDS ORDERED: VITAMIN K (ADULT) 10 MG/ML ONE (16:17)
[2018-02-04 16:18] LABS: Protime INR 11.11
[2018-02-04] MEDS ORDERED: PANTOPRAZOLE 40 MG INJ ONE (16:32)
[2018-02-04] MEDS: PANTOPRAZOLE INJ 80 MG in NA CHLORIDE 0.9% 250 ML IV SCH (17:00)
--- NOTE | 2018-02-04 17:03 | EDPHYS ---
Physician Documentation [facility] Name: Abdirizak Diaz Age: 67 yrs Sex: Male : 1950 Arrival Date: 02/04/2018 Time: 14:33 Bed 30 Private MD: Savage Kelsey H; Dinesh Chawla H ED Physician Meliton Rivera HPI: 02/05 09:29 This 67 yrs old Male presents to ER via Ambulatory with complaints of kdr Vomiting blood - sent from Dr. Chawla's office. 09:29 The patient presents to the emergency department with nausea, that is mild, vomiting, kdr that is intermittent, described as blood streaked, bright red blood. Onset: The symptoms/episode began/occurred gradually, 2 day(s) ago. Possible causes: The patient is noted to be spitting up BRB and blood clots periodically. He is not in any acute distress but only mildly uncomforatble. The symptoms are aggravated by nothing. The symptoms are alleviated by nothing. Associated signs and symptoms: The patient has no apparent associated signs or symptoms, Pertinent positives: GI bleeding, nausea, vomiting. Severity of symptoms: At their worst the symptoms were mild in the emergency department the symptoms are unchanged. The patient has experienced similar episodes in the past, several times. The patient has been recently seen by a physician: Sent from Dr. Chawla's office. He was recently admitted for hypocoagulopathy . Historical: - Allergies: 02/04 15:00 Aspirin; rv 15:00 Keppra; rv - Home Meds: 15:00 Avapro Oral 75 mg daily [Active]; Claritin 10 mg Oral tab 1 tab once daily [Active]; rv finasteride 5 mg Oral tab 1 tab once daily [Active]; Lamictal 200 mg Oral tab 1 tab 2 times per day [Active]; Lovenox 80 mg/0.8 mL Sub-Q syrg every 12 hours [Active]; Gary 5-325 mg Oral tab 2 tabs every 4 hours [Active]; simvastatin 80 mg Oral tab daily [Active]; Vimpat 200 mg Oral tab 1 tab 2 times per day [Active]; - PMHx: 15:00 High Cholesterol; Hypertension; Seizures; rv - PSHx: 15:00 AORTIC VALVE SURGERY; Hernia repair; rv - Immunization history:: Adult Immunizations up to date. - Social history:: Smoking status: Patient/guardian denies using tobacco, the patient reports quitting approximately 40 years ago. - Ebola Screening: : Patient negative for fever greater than or equal to 101.5 degrees Fahrenheit, and additional compatible Ebola Virus Disease symptoms Patient denies exposure to infectious person Patient denies travel to an Ebola-affected area in the 21 days before illness onset. ROS: 02/05 09:29 Constitutional: Negative for fever, chills, and weight loss, Eyes: Negative for injury, kdr pain, redness, and discharge, ENT: Negative for injury, pain, and discharge, Neck: Negative for injury, pain, and swelling, Cardiovascular: Negative for chest pain, palpitations, and edema, Respiratory: Negative for shortness of breath, cough, wheezing, and pleuritic chest pain, Back: Negative for injury and pain, : Negative for injury, bleeding, discharge, and swelling, MS/Extremity: Negative for injury and deformity, Skin: Negative for injury, rash, and discoloration, Neuro: Negative for headache, weakness, numbness, tingling, and seizure activity. Psych: Negative for depression, anxiety, suicide ideation, homicidal ideation, and hallucinations, Allergy/Immunology: Negative for hives, rash, and allergies, Endocrine: Negative for neck swelling, polydipsia, polyuria, polyphagia, and marked weight changes, Hematologic/Lymphatic: Negative for swollen nodes, abnormal bleeding, and unusual bruising. Abdomen/GI: Positive for nausea and vomiting, hematemesis, Negative for abdominal distension, black/tarry stool, rectal pain, rectal bleeding, bowel incontinence. Exam: 09:29 Constitutional: This is a well developed, well nourished patient who is awake, alert, kdr and in no acute distress. Head/Face: Normocephalic, atraumatic. Eyes: Pupils equal round and reactive to light, extra-ocular motions intact. Lids and lashes normal. Conjunctiva and sclera are non-icteric and not injected. Cornea within normal limits. Periorbital areas with no swelling, redness, or edema. Neck: Trachea midline, no thyromegaly or masses palpated, and no cervical lymphadenopathy. Supple, full range of motion without nuchal rigidity, or vertebral point tenderness. No Meningismus. Chest/axilla: Normal chest wall appearance and motion. Nontender with no deformity. No lesions are appreciated. Cardiovascular: Regular rate and rhythm with a normal S1 and S2. No gallops, murmurs, or rubs. Normal PMI, no JVD. No pulse deficits. Respiratory: Lungs have equal breath sounds bilaterally, clear to auscultation and percussion. No rales, rhonchi or wheezes noted. No increased work of breathing, no retractions or nasal flaring. Back: No spinal tenderness. No costovertebral tenderness. Full range of motion. Skin: Warm, dry with normal turgor. Normal color with no rashes, no lesions, and no evidence of cellulitis. MS/ Extremity: Pulses equal, no cyanosis. Neurovascular intact. Full, normal range of motion. Neuro: Awake and alert, GCS 15, oriented to person, place, time, and situation. Cranial nerves II-XII grossly intact. Motor strength 5/5 in all extremities. Sensory grossly intact. Cerebellar exam normal. Normal gait. Psych: Awake, alert, with orientation to person, place and time. Behavior, mood, and affect are within normal limits. 09:29 Abdomen/GI: Inspection: obese Bowel sounds: diminished, Palpation: soft, nontender. Vital Signs: 02/04 15:02 BP 147 / 84; Pulse 93 MON; Resp 18 S; Temp 99.3(O); Pulse Ox 100% on R/A; Weight 83.46 rv kg (R); Pain 0/10; 15:43 BP 132 / 87; Pulse 95; Resp 17 S; Pulse Ox 98% on R/A; Pain 0/10; rv 18:12 BP 116 / 76; Pulse 94; Resp 20 S; Pulse Ox 99% on R/A; rv 19:46 BP 121 / 94; Pulse 85; Resp 18 S; Pulse Ox 97% on R/A; rv MDM: 17:03 Patient medically screened. kdr 02/05 09:29 Data reviewed: vital signs, nurses notes, lab test result(s), radiologic studies. kdr Counseling: I had a detailed discussion with the patient and/or guardian regarding: the historical points, exam findings, and any diagnostic results supporting the discharge/admit diagnosis, lab results, radiology results, the need for further work-up and treatment in the hospital. 02/04 14:55 Order name: Basic Metabolic Panel; Complete Time: 16:39 kdr 02/04 14:55 Order name: CBC with Diff; Complete Time: 16:04 kdr 02/04 14:55 Order name: LFT's; Complete Time: 16:39 kdr 02/04 14:55 Order name: Magnesium; Complete Time: 16:39 kdr 02/04 14:55 Order name: NT PRO-BNP; Complete Time: 16:39 kdr 02/04 14:55 Order name: PT-INR; Complete Time: 16:39 kdr 02/04 14:55 Order name: Troponin (emerg Dept Use Only); Complete Time: 16:39 kdr 02/04 14:55 Order name: XRAY Chest (1 view); Complete Time: 16:04 kdr 02/04 14:56 Order name: Creatinine for Radiology; Complete Time: 16:10 kdr 02/04 14:56 Order name: Lipase; Complete Time: 16:39 kdr 02/04 14:56 Order name: Type And Screen kdr 02/04 16:09 Order name: CT Abd/Pelvis - W/Contrast; Complete Time: 10:05 kdr 02/04 14:55 Order name: EKG; Complete Time: 14:56 kdr 02/04 14:55 Order name: Cardiac monitoring; Complete Time: 15:40 kdr 02/04 14:55 Order name: EKG - Nurse/Tech; Complete Time: 15:40 kdr 02/04 14:55 Order name: IV Saline Lock; Complete Time: 15:40 kdr 02/04 14:55 Order name: Labs collected and sent; Complete Time: 15:40 kdr 02/04 14:55 Order name: O2 Per Protocol; Complete Time: 15:40 kdr 02/04 14:55 Order name: O2 Sat Monitoring; Complete Time: 15:40 kdr Administered Medications: 02/04 16:19 Drug: ProTONIX 80 mg Route: IVP; Site: left antecubital; rv 16:50 Follow up: Response: No adverse reaction rv 16:20 Drug: Vitamin K1 10 mg Route: IM; Site: right deltoid; rv 16:50 Follow up: Response: No adverse reaction rv 16:49 Drug: ProTONIX 8 mg/hr Route: IV; Rate: 25 ml/hr; Site: left antecubital; rv 19:49 Follow up: IV Status: Infusion continued upon admission rv Disposition: 02/04/18 17:03 Hospitalization ordered by Deedee Hawthorne for Inpatient Admission. Preliminary diagnosis is Hypocoagulopathy - Coumadin toxicity. - Bed requested for Telemetry/MedSurg (Inpatient). - Status is Inpatient Admission. rv - Condition is Serious. - Problem is new. - Symptoms are unchanged. UTI on Admission? No Signatures: Dispatcher [employer] EDMS Lindsay Urrutia RN RN dw Meliton Rivera MD MD [facility] Marjorie Cheney Jose Martin Hidalgo RN RN rv Corrections: (The following items were deleted from the chart) 18:45 17:03 Hospitalization Ordered by Deedee Hawthorne MD for Inpatient Admission. Preliminary eb diagnosis is Hypocoagulopathy - Coumadin toxicity. Bed requested for Telemetry/MedSurg (Inpatient). Status is Inpatient Admission. Condition is Serious. Problem is new. Symptoms are unchanged. UTI on Admission? No. kdr 19:32 18:45 02/04/2018 17:03 Hospitalization Ordered by Deedee Hawthorne MD for Inpatient dw Admission. Preliminary diagnosis is Hypocoagulopathy - Coumadin toxicity. Bed requested for Telemetry/MedSurg (Inpatient). Status is Inpatient Admission. Condition is Serious. Problem is new. Symptoms are unchanged. UTI on Admission? No. eb 20:03 19:32 02/04/2018 17:03 Hospitalization Ordered by Deedee Hawthorne MD for Inpatient rv Admission. Preliminary diagnosis is Hypocoagulopathy - Coumadin toxicity. Bed requested for Telemetry/MedSurg (Inpatient). Status is Inpatient Admission. Condition is Serious. Problem is new. Symptoms are unchanged. UTI on Admission? No. dw
--- NOTE | 2018-02-04 17:03 | ER ---
Nurse's Notes [facility] Name: Abdirizak Diaz Age: 67 yrs Sex: Male : 1950 Arrival Date: 02/04/2018 Time: 14:33 Bed 30 Private MD: Savage Kelsey H; Dinesh Chawla H Diagnosis: Hypocoagulopathy - Coumadin toxicity Presentation: 02/04 14:55 Presenting complaint: states: "HE JUST HAD HIS HERNIA SURGERY ON OF THE rv DECEMBER. HE WAS HOSPITALIZED, IN ICU, FOR TWO WEEKS. HE WAS OUT IN THE HOSPITAL FOR TWO WEEKS NOW. HE STARTED VOMITING BLOOD LAST NIGHT AND HE WASN'T ABLE TO HOLD DOWN ANYTHING.". Transition of care: patient was not received from another setting of care. Onset of symptoms was February 03, 2018 at 20:00. Risk Assessment: Do you want to hurt yourself or someone else? Patient reports no desire to harm self or others. Initial Sepsis Screen: Does the patient meet any 2 criteria? No. Patient's initial sepsis screen is negative. Does the patient have a suspected source of infection? No. Patient's initial sepsis screen is negative. Care prior to arrival: None. 14:55 Method Of Arrival: Ambulatory rv 14:55 Acuity: ERIBERTO 3 rv Triage Assessment: 15:03 GI: Reports anorexia, vomiting. rv Historical: - Allergies: 15:00 Aspirin; rv 15:00 Keppra; rv - Home Meds: 15:00 Avapro Oral 75 mg daily [Active]; Claritin 10 mg Oral tab 1 tab once daily [Active]; rv finasteride 5 mg Oral tab 1 tab once daily [Active]; Lamictal 200 mg Oral tab 1 tab 2 times per day [Active]; Lovenox 80 mg/0.8 mL Sub-Q syrg every 12 hours [Active]; Atmore 5-325 mg Oral tab 2 tabs every 4 hours [Active]; simvastatin 80 mg Oral tab daily [Active]; Vimpat 200 mg Oral tab 1 tab 2 times per day [Active]; - PMHx: 15:00 High Cholesterol; Hypertension; Seizures; rv - PSHx: 15:00 AORTIC VALVE SURGERY; Hernia repair; rv - Immunization history:: Adult Immunizations up to date. - Social history:: Smoking status: Patient/guardian denies using tobacco, the patient reports quitting approximately 40 years ago. - Ebola Screening: : Patient negative for fever greater than or equal to 101.5 degrees Fahrenheit, and additional compatible Ebola Virus Disease symptoms Patient denies exposure to infectious person Patient denies travel to an Ebola-affected area in the 21 days before illness onset. Screenin:01 Abuse screen: Denies threats or abuse. Denies injuries from another. Nutritional rv screening: No deficits noted. Tuberculosis screening: No symptoms or risk factors identified. Fall Risk None identified. Assessment: 15:02 General: Appears in no apparent distress. comfortable, Behavior is calm, cooperative. rv Pain: Denies pain. Neuro: Level of Consciousness is awake, alert, obeys commands, Oriented to person, place, time, situation. Cardiovascular: Capillary refill < 3 seconds. Respiratory: Airway is patent. GI: Abdomen is round. : No signs and/or symptoms were reported regarding the genitourinary system. EENT: No signs and/or symptoms were reported regarding the EENT system. Derm: Skin is intact. Musculoskeletal: No signs and/or symptoms reported regarding the musculoskeletal system. 16:28 Reassessment: No changes from previously documented assessment. Patient and/or family rv updated on plan of care and expected duration. Pain level reassessed. Patient is alert, oriented x 3, equal unlabored respirations, skin warm/dry/pink. 18:13 Reassessment: No changes from previously documented assessment. Patient and/or family rv updated on plan of care and expected duration. Pain level reassessed. Patient is alert, oriented x 3, equal unlabored respirations, skin warm/dry/pink. AWAITING BED ASSIGNMENT FOR ADMISSION. Vital Signs: 15:02 BP 147 / 84; Pulse 93 MON; Resp 18 S; Temp 99.3(O); Pulse Ox 100% on R/A; Weight 83.46 rv kg (R); Pain 0/10; 15:43 BP 132 / 87; Pulse 95; Resp 17 S; Pulse Ox 98% on R/A; Pain 0/10; rv 18:12 BP 116 / 76; Pulse 94; Resp 20 S; Pulse Ox 99% on R/A; rv 19:46 BP 121 / 94; Pulse 85; Resp 18 S; Pulse Ox 97% on R/A; rv ED Course: 14:33 Patient arrived in ED. as 14:33 Savage Kelsey DO is Private Physician. as 14:33 Dinesh Chawla MD is Private Physician. as 14:55 Meliton Rivera MD is Attending Physician. kdr 14:57 Triage completed. rv 15:01 Arm band placed on right wrist. rv 15:03 Patient has correct armband on for positive identification. Placed in gown. Bed in low rv position. Call light in reach. Side rails up X 1. Adult w/ patient. Pulse ox on. NIBP on. 15:25 Inserted saline lock: 20 gauge in left antecubital area, using aseptic technique. Blood rv collected. 15:25 Initial lab(s) drawn, by me, sent to lab. T\\T\\S collected, blood band applied to patient. rv 15:31 XRAY Chest (1 view) In Process Unspecified. EDMS 15:33 X-ray completed. Portable x-ray completed in exam room. Patient tolerated procedure mh1 well. 15:40 Type And Screen Sent. rv 15:46 Awaiting lab results. rv 16:48 Deedee Hawthorne MD is Hospitalizing Provider. kdr 16:54 CT Abd/Pelvis - W/Contrast In Process Unspecified. EDMS 19:47 No provider procedures requiring assistance completed. Patient admitted, IV remains in rv place. intact. Administered Medications: 16:19 Drug: ProTONIX 80 mg Route: IVP; Site: left antecubital; rv 16:50 Follow up: Response: No adverse reaction rv 16:20 Drug: Vitamin K1 10 mg Route: IM; Site: right deltoid; rv 16:50 Follow up: Response: No adverse reaction rv 16:49 Drug: ProTONIX 8 mg/hr Route: IV; Rate: 25 ml/hr; Site: left antecubital; rv 19:49 Follow up: IV Status: Infusion continued upon admission rv Outcome: 17:03 Decision to Hospitalize by Provider. kdr 19:48 Admitted to Tele accompanied by tech, via stretcher, room 406, with chart, Report rv called to [facility] 19:48 Condition: stable 19:48 Instructed on the need for admit. 20:03 Patient left the ED. rv Signatures: Dispatcher [employer] EDMS Meliton Rivera MD MD kdr Mitzy Garrison 1 Karla Mclaughlin Ronaldo, RN RN rv
--- NOTE | 2018-02-04 17:08 | RAD REPORT ---
EXAM DESCRIPTION: CT - Abdomen Pelvis W Contrast - 02/04/2018 4:54 pm CLINICAL HISTORY: Abdominal pain, hematemesis, history of hernia repair January 09 COMPARISON: CT study January 10 TECHNIQUE: Biphasic, helical CT imaging of the abdomen and pelvis was performed following 100 ml non -ionic IV contrast. Oral contrast was given. All CT scans are performed using dose optimization technique as appropriate and may include automated exposure control or mA/KV adjustment according to patient size. FINDINGS: No acute pleural or parenchymal lung base finding. No pericardial effusion. Distal esophag us is dilated and fluid-filled. No gross evidence for stricture or mass at the GE junction. The liver, spleen, and pancreas show no suspicious findings. Gallbladder and biliary tree are also wi thout suspicious finding. Symmetric renal function is seen with no hydronephrosis or suspicious renal mass. Benign renal cysts are present. No urinary bladder abnormality. Prostate gland and seminal vesicles are normal range. No gastric dilatation or gastric wall thickening. No dilated large or small bowel loops. Moderate sto ol volume throughout the colon. The appendix is normal. Patient has mild diverticulosis without diver ticulitis. No free air, pneumatosis or free fluid. In the lower left abdomen there is a 9 x 3 centimeter oval low-density mass. This is deep to the abdominal wall musculature. This represents remnant hematoma. P atient had a much larger hemoperitoneum on the January 10 study. Periumbilical hernia surgical repai r changes are noted. Minimal stranding in the subxiphoid fatty tissues from prior surgery. No suspici ous finding at this site. No adrenal abnormality. No suspicious bony findings. IMPRESSION: Distal esophagus is dilated and fluid-filled with a minimal circumferential wall thicken ing. Finding is nonspecific. The esophagus is only partially imaged and no mass or suspicious findin g seen at the GE junction. Hematemesis is likely arising from the esophagus. The stomach, duodenum and small bowel show no activ e process. Remnant 9 x 3 centimeter hematoma in the anterior lower left abdomen. There is been otherwise complet e resolution of the moderate amount of hemoperitoneum seen January 10. No suspicious finding at the hernia repair site or abdominal access sites.
--- NOTE | 2018-02-04 19:16 | P.HP ---
Certification for Inpatient Patient admitted to: Inpatient With expected LOS: >2 Midnights Practitioner: I am a practitioner with admitting privileges, knowledge of patient current condition, hospital course, and medical plan of care. Services: Services provided to patient in accordance with Admission requirements found in Title 42 Section 412.3 of the Code of Federal Regulations Patient History Date of Service: 02/06/18 Reason for admission: Hematemesis History of Present Illness: This is a 67-year-old male with a recent ventral hernia repair surgery complicated by hemoperitoneum and recently discharged f from our facility returns with hematemesis. The patient was discharged on on a Thursday with 2 tablets of Coumadin, 5 mg and was instructed to follow up outpatient for INR check and Coumadin dosage adjustment. Per patient, they did not check his INR on Thursday as they stated it was too early and the recheck did on when his INR was 15. He started having hematemesis throwing up buckets of blood, came into the ER where his INR was 11.1. His Coumadin had been held for 1 week prior to admission. In the ER, he was given 2 doses of vitamin K. at the time of my exam, he is actively throwing up blood, but was hemodynamically stable and he was alert oriented x3 Allergies [facility] Allergy (Verified 01/10/18 06:11) doesnt work aspirin Adverse Reaction (Intermediate, Verified 01/10/18 06:11) TAKES COUMADIN Home Medications: Ascorbic Acid [Vitamin C] 1,000 mg PO DAILY 12/31/17 Cholecalciferol (Vitamin D3) [Vitamin D3] 2,000 unit PO DAILY 12/31/17 Codeine/APAP [Tylenol #3*] 1 tab PO Q6HP PRN 12/31/17 Cyanocobalamin [Vitamin B-12*] 3,000 mcg PO DAILY 12/31/17 Lacosamide [Vimpat] 200 mg PO BID 12/31/17 Lamotrigine [Lamotrigine Odt] 200 mg PO BID 12/31/17 Loratadine [Claritin*] 10 mg PO DAILY 12/31/17 Simvastatin 40 mg PO DAILY 12/31/17 Ubidecarenone [Co Q-10] 200 mg PO DAILY 12/31/17 Warfarin Sodium [Coumadin*] 5 mg PO DAILY 5 PM tab 01/23/18 - Past Medical/Surgical History Diabetic: No -: Hypertension -: AV -: Dyslipidemia -: Seizures -: hernia repair -: AV replacement - Family History Mother Notes: no significant family history per pt - Social History Alcohol use: No CD- Drugs: No Caffeine use: No Review of Systems General: Unremarkable Eyes: Unremarkable ENT: Unremarkable Respiratory: Unremarkable Cardiovascular: Unremarkable Gastrointestinal: As per HPI Genitourinary: Unremarkable Musculoskeletal: Unremarkable Integumentary: Unremarkable Neurological: Unremarkable Lymphatics: Unremarkable Physical Examination - Physical Exam General: Alert, In no apparent distress, Oriented x3 HEENT: Atraumatic, PERRLA, Mucous membr. moist/pink, EOMI Neck: Supple, 2+ carotid pulse no bruit, No LAD, Without JVD or thyroid abnormality Respiratory: Clear to auscultation bilaterally, Normal air movement Cardiovascular: Normal S1 S2, Irregular heart rate/rhythm Gastrointestinal: Normal bowel sounds, No tenderness Musculoskeletal: No tenderness Integumentary: No rashes Neurological: Normal gait, Normal speech, Normal strength at 5/5 x4 extr, Normal tone, Normal affect - Studies Laboratory Data (last 24 hrs) 02/04/18 15:25: Creatinine 0.90 02/04/18 15:25: PT 134.3 H, INR 11.11 H* 02/04/18 15:25: WBC 7.2, Hgb 13.9, Hct 41.6, Plt Count 364 02/04/18 15:25: Sodium 137, Potassium 4.0, BUN 33 H, Creatinine 1.00, Glucose 104, Magnesium 2.3 D, Total Bilirubin 1.2 H, AST 23, ALT 20, Alkaline Phosphatase 86, Lipase 237 Assessment and Plan - Plan This is a 67-year-old male with: Hematemesis Warfarin induced coagulopathy NR elevated as high as 15, 11.11 today in the emergency department. Given 1 dose of vitamin K.. Pending ICU bed. IV fluids ordered. Hold Coumadin IV Protonix At the time of exam, vital signs stable blood count stable. Will continue to monitor Recent ventral hernia repair, complicated with hemoperitoneum History of seizure Stable. Hold p.o. medications as patient is actively bleeding. Seizure precaution History of Mechanical valve INR goal of 2.5-3.5, no patient with supratherapeutic INR. Hold Coumadin glucose monitor INR. DVT prophylaxis: Hold anticoagulation GI prophylaxis: IV protonix Diet: NPO Disposition: Admit to ICU bed, continue IV Protonix. GI consulted, general surgery consulted and Cardiology consult. Recommendations pending - Advance Directives Does patient have a Living Will: No Does patient have a Durable POA for Healthcare: Yes Physician Review: Patient Assessed, Agree with Above Assessment and Plan Critical Care: Yes Time Spent Managing Pts Care (In Minutes): 55
[2018-02-04] MEDS: NA CHLORIDE 0.9% 1,000 ML IV SCH (21:45)
[2018-02-04 22:29] LABS: Protime INR 11.4
[2018-02-04 22:32] LABS: Absolute Lymphocytes (CBC) 2.4 K/uL (0.7-4.9); Absolute Monocytes 0.8 K/uL (0.1-1.3); Absolute Neutrophil 4.8 K/uL (1.8-8.0); Basophils % 0.4 % (0-1.3); Eosinophils % 0.7 % (0-4.4); Hematocrit 36.8 % (39.6-49.0); Lymphocytes % 29.8 % (15.3-44.8); MCH 30.6 pg (27.0-35.0); MCV 90.9 fL (80-100); MPV 7.9 fL (7.6-11.3); Monocytes % 10.2 % (3.3-12.3); RBC Red Blood Cell Count 4.05 M/uL (4.33-5.43)
[2018-02-05] MEDS: VITAMIN K (ADULT) 10 MG/ML SQ SCH (00:42)
[2018-02-05] MEDS ORDERED: NA CHLORIDE 0.9% 250 ML ONE ×2 (00:56→03:22)
[2018-02-05] MEDS: ONDANSETRON 4 MG/2 ML VIAL IV PRN (01:07)
[2018-02-05 01:12] LABS: Urine Appearance TURBID; Urine Blood NEGATIVE (NEG); Urine Color DK YELLOW; Urine Glucose NEGATIVE (NEG); Urine Protein NEGATIVE (NEG); Urine Specific Gravity >=1.030 (1.005-1.030); Urine pH 5.5 (5.0-7.0)
[2018-02-05 01:34] LABS: Urine Bilirubin NEGATIVE (NEG); Urine Microscopic Reflex ORDER UMIC
[2018-02-05 02:12] LABS: Urine Bacteria 20-50 /HPF (NONE SEEN); Urine Culture Reflex Order REFLEXED; Urine Mucus 2+ /HPF (NONE SEEN); Urine RBC <5 /HPF (NONE SEEN)
[2018-02-05] MEDS: PANTOPRAZOLE INJ 80 MG in NA CHLORIDE 0.9% 250 ML IV SCH ×3 (03:00→23:41)
[2018-02-05] MEDS ORDERED: PANTOPRAZOLE 40 MG INJ ONE (03:23)
[2018-02-05 05:35] LABS: ALT/SGPT 16 U/L (12-78); AST/SGOT 20 U/L (15-37); Albumin 2.9 g/dL (3.4-5.0); Alkaline Phosphatase 69 U/L (45-117); BUN Blood Urea Nitrogen 35 mg/dL (7-18); Bicarbonate 23 mmol/L (21-32); Bilirubin Total 1.3 mg/dL (0.2-1.0); Glucose Level 125 mg/dL (74-106); Protein, Total 6.7 g/dL (6.4-8.2); Sodium Level 142 mmol/L (136-145)
[2018-02-05 05:39] LABS: Absolute Lymphocytes (CBC) 2.1 K/uL (0.7-4.9); Absolute Monocytes 0.6 K/uL (0.1-1.3); Absolute Neutrophil 3.9 K/uL (1.8-8.0); Basophils % 0.3 % (0-1.3); Eosinophils % 0.3 % (0-4.4); Hematocrit 30.8 % (39.6-49.0); Lymphocytes % 31.8 % (15.3-44.8); MCH 31.4 pg (27.0-35.0); MCV 90.5 fL (80-100); MPV 7.9 fL (7.6-11.3); RBC Red Blood Cell Count 3.41 M/uL (4.33-5.43)
[2018-02-05 06:29] LABS: Protime INR 2.61
--- NOTE | 2018-02-05 07:09 | EKG ---
Test Date: 2018-02-04 Test Time: 15:25:46 Pharmacists: SRHAVAN MEASUREMENT RESULTS: Intervals: Rate: 91 MA: 156 QRSD: 100 QT: 368 QTc: 452 Roscoe: P: 39 MA: 156 QRS: -29 T: 68 INTERPRETIVE STATEMENTS: Normal sinus rhythm Voltage criteria for left ventricular hypertrophy Abnormal ECG Compared to ECG 01/10/2018 02:45:15 Prolonged QT interval no longer present Electronically Signed On 02-05-18 07:07:07 SUPERVISOR DEHYDROGENATION by Jose Haynes
--- NOTE | 2018-02-05 07:53 | P.PN ---
Subjective Date of Service: 02/04/18 Patient is a 67yo who was admitted to the hospital with GIB. Patient INR supratherapeutic. Pt with no new complaints. Review of Systems 10-point ROS is otherwise unremarkable Physical Examination - Vital Signs Temperature: 97.8 F Blood Pressure: 122/58 Pulse: 83 Respirations: 18 Pulse Ox (%): 95 - Physical Exam General: Alert, In no apparent distress, Oriented x3 Respiratory: Clear to auscultation bilaterally, Normal air movement Cardiovascular: Regular rate/rhythm, Normal S1 S2, No murmurs Gastrointestinal: Normal bowel sounds, Soft and benign, Non-distended, No tenderness Musculoskeletal: No clubbing, No swelling, No tenderness - Studies Laboratory Data (last 24 hrs) 02/04/18 15:25: Creatinine 0.90 02/04/18 15:25: PT 134.3 H, INR 11.11 H* 02/04/18 15:25: WBC 7.2, Hgb 13.9, Hct 41.6, Plt Count 364 02/04/18 15:25: Sodium 137, Potassium 4.0, BUN 33 H, Creatinine 1.00, Glucose 104, Magnesium 2.3 D, Total Bilirubin 1.2 H, AST 23, ALT 20, Alkaline Phosphatase 86, Lipase 237 Medications List Reviewed: Yes Assessment & Plan - Problems (Diagnosis) (1) Supratherapeutic INR Current Visit: Yes Status: Acute (2) UGIB (upper gastrointestinal bleed) Current Visit: Yes Status: Acute (3) History of aortic valve replacement with metallic valve Current Visit: No Status: Chronic - Plan Plan: 1. Continue with IV hydration and PPI drip 2. Serial H&H, and we will monitor LFTs and lipase along with electrolytes. 3. Continue with pain control 4. NPO 5. GI consultation 6. GI and DVT prophylaxis Discharge Plan: Home Plan to discharge in: Greater than 2 days - Advance Directives Does patient have a Living Will: No Does patient have a Durable POA for Healthcare: Yes - Code Status/Comfort Care Code Status Assessed: Yes Code Status: Full Code Critical Care: No Time Spent Managing PTS Care (In Minutes): 45
[2018-02-05] MEDS ORDERED: PNEUMOCOCCAL VACCINE 0.5 ML IMVAC ONE (08:00)
[2018-02-05] MEDS ORDERED: INFLUENZA VACCINE (for 3y+) 0.5 ML DOSE IMVAC ONE (08:00)
[2018-02-05] MEDS: NA CHLORIDE 0.9% 1,000 ML IV SCH ×2 (09:05→16:53)
--- NOTE | 2018-02-05 14:21 | P.CNS ---
Date of Consult: 02/05/18 Reason for Consult: Fluid management Allergies levetiracetam [From [facility]] Allergy (Verified 01/10/18 06:11) doesnt work aspirin Adverse Reaction (Intermediate, Verified 01/10/18 06:11) TAKES COUMADIN Home Medications: Ascorbic Acid [Vitamin C] 1,000 mg PO DAILY 12/31/17 Cholecalciferol (Vitamin D3) [Vitamin D3] 2,000 unit PO DAILY 12/31/17 Codeine/APAP [Tylenol #3*] 1 tab PO Q6HP PRN 12/31/17 Cyanocobalamin [Vitamin B-12*] 3,000 mcg PO DAILY 12/31/17 Lacosamide [Vimpat] 200 mg PO BID 12/31/17 Lamotrigine [Lamotrigine Odt] 200 mg PO BID 12/31/17 Loratadine [Claritin*] 10 mg PO DAILY 12/31/17 Simvastatin 40 mg PO DAILY 12/31/17 Ubidecarenone [Co Q-10] 200 mg PO DAILY 12/31/17 Warfarin Sodium [Coumadin*] 5 mg PO DAILY 5 PM tab 01/23/18 - Past Medical/Surgical History Diabetic: No -: Hypertension -: AV -: Dyslipidemia -: Seizures -: hernia repair -: AV replacement - Family History Mother Notes: no significant family history per pt - Social History Smoking Status: Never smoker Alcohol use: No CD- Drugs: No Caffeine use: No Place of Residence: Home Review of Systems General: As per HPI Physical Examination Temp Pulse Resp BP Pulse Ox 97.5 F 95 H 18 114/67 97 02/05/18 12:00 02/05/18 12:00 02/05/18 12:00 02/05/18 12:00 02/05/18 12:00 General: Oriented x3 HEENT: Atraumatic Neck: Supple, Without JVD or thyroid abnormality Respiratory: Clear to auscultation bilaterally, Normal air movement Cardiovascular: No edema, Regular rate/rhythm, Normal S1 S2 Gastrointestinal: Normal bowel sounds Laboratory Data (last 24 hrs) 02/04/18 15:25: Creatinine 0.90 02/04/18 15:25: PT 134.3 H, INR 11.11 H* 02/04/18 15:25: WBC 7.2, Hgb 13.9, Hct 41.6, Plt Count 364 02/04/18 15:25: Sodium 137, Potassium 4.0, BUN 33 H, Creatinine 1.00, Glucose 104, Magnesium 2.3 D, Total Bilirubin 1.2 H, AST 23, ALT 20, Alkaline Phosphatase 86, Lipase 237 - Problems (1) Supratherapeutic INR Onset Date: 02/05/18 Current Visit: Yes Status: Acute (2) UGIB (upper gastrointestinal bleed) Onset Date: 02/05/18 Current Visit: Yes Status: Acute (3) Seizures Onset Date: 01/11/18 Current Visit: No Status: Chronic Conclusions/Impression: A 67 Y/O man with PMhx of mechanical MV on coumadin, seizure disorder, CAD presented for bloody vomiting Pt is known to me from previous admission Pt was recently hospitalized in the ICU for abdominal hematoma as complaication form Inguinal hernia repair , pt had VINCENT due to hypotension that improved on IVF nephrology consult for fluid management Assessment and plan hx of VINCENT RFT WNL now euvolemic Gi bleeding with supratheraputic INR INR in ER 11 , down to 2.6 on FFp and Vit K Coumadin on hld Gi evaluation Hx of seizure disorder Cont Po meds if no contraindication mechanical valve Coumadin on hold for now
[2018-02-05] MEDS ORDERED: LIDOCAINE 1% MPF 5 ML VIAL ONE (15:10)
[2018-02-05] MEDS ORDERED: PROPOFOL 200 MG/20 ML VIAL IV ONE (15:10)
[2018-02-05] MEDS ORDERED: NA CHLORIDE 0.9% 1,000 ML ONE (15:18)
--- NOTE | 2018-02-05 15:37 | ENDO RPT ---
[address], [address] EGD PROCEDURE REPORT EXAM DATE: 02/05/2018 PATIENT NAME: Abdirizak Diaz MR#: [id number] BIRTHDATE: 1950 ATTENDING: Dinesh Chawla Dr STATUS: inpatient - 7 LEASE OUT MAN: Dayna Williamson and Faith Umana RN INDICATIONS: The patient is a 67 yr old Male here for an EGD due to hematemesis, upper G.I. bleeding, history of large 2 cm gastric ulcer at esophagitis / gastritis, and anemia (hgb 10.7) PROCEDURE PERFORMED: EGD, diagnostic MEDICATIONS: Per Anesthesia. TOPICAL ANESTHETIC: none CONSENT: The patient understands the risks and benefits of the procedure and understands that these risks include, but are not limited to: sedation, allergic reaction, infection, perforation and/or bleeding. Alternative means of evaluation and treatment include, among others: physical exam, x-rays, and/or surgical intervention. The patient elects to proceed with this endoscopic procedure. DESCRIPTION OF PROCEDURE: During intra-op preparation period all mechanical medical equipment was checked for proper function. Hand hygiene and appropriate measures for infection prevention was taken. Procedure, possible complications, and alternatives including but not limited to the possibility of bleeding, perforation, tear, infection, sepsis, need for surgery, need for blood transfusion, and anesthesia related complications were explained to the patient. After the risks, benefits and alternatives of the procedure were thoroughly explained, Informed consent was verified, confirmed and timeout was successfully executed by the treatment team. The patient was placed in the left lateral position. The patient was anesthetized with topical anesthesia. Through the anesthetized oropharyngeal area, the scope was passed without any difficulty. The Pentax EG-[id number] ([id number]) endoscope was introduced through the mouth and advanced to the esophagus mid. Retroflexion was not performed. The gastroscope was then slowly withdrawn and removed. Blood was found in the pharynx. Blood was found in the mid esophagus. ADVERSE EVENTS: There were no complications. IMPRESSIONS: 1. Sm,all amount of bright red blood was found in the pharynx, and suctioned out were found in the mid esophagus - unable to suction out or intubate past safely (procedure terminated) RECOMMENDATIONS: 1. acid suppression therapy 2. transfer to ICU monitoring 3. surgery consult 4. transfuse prn (mechanical AVR, admit to hospital with INR 11.4 now to 2.6) REPEAT EXAM: Dinesh Chawla Dr eSigned: Dinesh Chawla Dr 02/05/2018 3:37 PM cc: CPT CODES: ICD9 CODES: PATIENT NAME: Abdirizak Diaz Ramila MR#: [id number]
[2018-02-05] MEDS ORDERED: OCTREOTIDE ACETATE 100 MCG/ML IV ONE (16:17)
[2018-02-05] MEDS: OCTREOTIDE 500 MCG in NA CHLORIDE 0.9% 500 ML IV SCH (16:47)
[2018-02-05 19:52] LABS: Hematocrit 31.3 % (39.6-49.0)
[2018-02-05] MEDS ORDERED: VALPROATE SODIUM INJ 1,000 MG in NA CHLORIDE 0.9% 100 ML IV SCH (20:00)
[2018-02-05 21:17] LABS: Hematocrit 29.3 % (39.6-49.0)
--- NOTE | 2018-02-05 21:38 | P.PN ---
Subjective Date of Service: 02/06/18 Chief Complaint: hematemesis Patient seen and examined at bedside. , son and daughter at bedside. He continues to vomit blood. He recieved 2 Units FFP overnight. States that he would like to be back on his seizure medications. Denies any dizziness, weakness, syncopal/presyncopal episode, chest pain or shortness of breath Review of Systems As noted above Physical Examination - Vital Signs Temperature: 97.5 F Blood Pressure: 111/70 Pulse: 78 Respirations: 25 Pulse Ox (%): 99 - Physical Exam General: Alert, In no apparent distress, Oriented x3 HEENT: Atraumatic, PERRLA, EOMI Neck: Supple, JVD not distended Respiratory: Clear to auscultation bilaterally, Normal air movement Cardiovascular: Regular rate/rhythm, Normal S1 S2 Gastrointestinal: Normal bowel sounds, Other (Hematemesis) Musculoskeletal: No tenderness Integumentary: No rashes Neurological: Normal speech, Normal tone, Normal affect Lymphatics: No axilla or inguinal lymphadenopathy - Studies Medications List Reviewed: Yes Assessment And Plan - Plan This is a 67-year-old male with: Hematemesis Warfarin induced coagulopathy He underwent attempted EGD today w/ Dr. Taylor, w/ active bleeding. Unable to complete due to the bleeding Continue IVF. INR therapeutic now, hold Vit K and FFP at this time. Will recheck INR tomorrow am. Hold Coumadin. The challenge here is to balance his INR so he does not bleed but he does not start to clot in his mechanical valve. As he is on seizure medications also, the staff early interact with the warfarin and make it harder to find this INR balance. General surgery, Dr. Mclaughlin consulted. GI, Dr. Chawla consulted. Continue IV protonix drip and octerotide. At the time of exam, vital signs stable blood count stable. Will continue to monitor Recent ventral hernia repair surgery Hx of seizure, on lamictal 200 mg BID and vimpat 200 mg bid. Patient like to restart his medications, though he is strict NPO due to the active bleeding. Will start him on IV Depakote. Will recheck a Depakote levels 2 days Reiterated the seizure medications to interact with Coumadin. Mechanical valve, on AC with warfarin INR goal of 2.5-3.5. Continue holding anticoagulation at this time DVT prophylaxis: Held GI Prophylaxis:protonix drip Diet: NPO Dispo: Guarded prognosis. Conitnue to monitor in the ICU for bleeding. Physician Review: Patient Assessed, Agree with Above Assessment and Plan Time Spent Managing PTS Care (In Minutes): 45
--- NOTE | 2018-02-05 23:32 | CON ---
Date of Consultation: 02/05/2018 Reason For Consultation: He presents to hospital due to hematemesis with coagulopathy and Coumadin t oxicity. History Of Present Illness: The patient is a 67-year-old white male with history of aortic valve rep lacement, status post EGD recently with a 2-cm gastric ulcer noted to cardia and three 2- to 5-mm sma ll ulcers in the antrum, and severe esophagitis and severe gastritis noted with some moderate duodeni tis of the bulb. The patient presents to the hospital after outpatient on Coumadin. His INR was not ed to be 15, came down to 11.4 on admission to the hospital, by holding Coumadin overnight. The ahsan ent was reversed with the INR down to 2.6 after vitamin K and FFP given overnight. The patient thomas nues to have hematemesis. However, hemoglobin is at goal from 13.9 to 10.7. The patient is spitting up and vomiting up small amounts of blood periodically. Past Medical History: Significant for aortic valve replacement, hypertension, hyperlipidemia, and ot her as per above with recent ventral umbilical hernia repairs in December 2017. Medications: Include vitamin K, Tylenol, IV Protonix drip, and normal saline. Allergies: TO ASPIRIN AND LEVETIRACETAM. Social History: , 2 children. No tobacco. No alcohol. Family History: Father and mother both . Mother was in a [facility] it appears, maybe non -Hodgkin lymphoma, but it is not clear. Physical Examination: Vital Signs: The patient is 6 feet, 183 pounds, BMI of 24 kg/m2. Temperature of 97.5 degrees Fahren heit, pulse 95, respirations 18, blood pressure 114/67, and O2 saturation 97%. General: He is an elderly male, lying in bed, appears somewhat pale. He is talking actively as he i s usually does. HEENT: Normocephalic, atraumatic. Anicteric. Pupils are equal, round, and reactive to light. Conj unctivae are somewhat pale. Neck: Supple. No masses. Respirations: Clear on anterior examination only. Cardiac: Regular rate and rhythm. No gallops or rubs, with mechanical click of his atrial valve not ed. Abdominal: Positive bowel sounds. Soft, nondistended. Mild tenderness. Obese. No peritoneal sign . No guarding or Dsouza sign. Extremities: No clubbing, cyanosis, or edema; 2+ pulses. Neurologic: Alert and oriented x3. Grossly nonfocal; 5/5 motor strength. Sensation intact to light touch. Laboratory Data: The patient has a white count of 6.7, hemoglobin 10.7 down from 13.9 on admission, MCV of 91, platelet count of 303, polys of 59%, lymphocytes 32%, monocytes 9%, and eosinophils 0.3%. The patient had a PT yesterday of 11.4, now down to 2.61 with vitamin K and FFP. Sodium 142, potass ium 4.0, chloride 111, bicarb 23, BUN of 35, creatinine of 0.7, glucose 125, calcium 8.7, phosphorus 2.7, magnesium 2.3, total bilirubin 1.3, AST of 20, ALT of 16, alkaline phosphatase 69. Troponin I l ess than 0.02. B-type peptide of 1215. Total protein 6.7, albumin to 2.9, and globulin 3.2. Lipase normal at 237. UA revealed 1+ ketones, 20 to 50 bacteria, 2+ mucus, negative nitrite, negative leuk ocyte esterase, and negative squamous epithelial cells, . CT abdomen and pelvis yesterday at 4 o'clock reveals distal esophagus dilated fluid-filled with a minimal circumferential wall thick ening. Findings; nonspecific esophagus only partially imaged. Hematemesis likely arising from the e sophagus. Stomach, duodenum, and small bowel shows no active process. Had a remnant 9 x 3-cm hemato ma in the anterior lower abdomen. There has been otherwise complete resolution of moderate amount of hemo-pneumoperitoneum on January 10. Impression: 1.Hematochezia with hemoglobin going from 13.9 to 10.7 since admission yesterday. His INR on admiss ion was approximately 11.4 down to 2.61 yesterday with vitamin K and FFP given overnight. It appears the patient has had bleed in the past as noted on CT scan. He had a pneumo-hemoperitoneum 9 x 3 cm, remaining hematoma left there from prior admission in December with bleed then. Also, CT scan shows a fluid-filled esophagus with suspicion that bleeding could be coming from the esophagus with known s evere esophagitis and 2-cm ulcer at the gastric cardia. Of note, he had a pamela esophagitis on dimitris or admission as well. 2.Anemia. Hemoglobin down to 10.7. The patient appears pale. Hemoglobin probably is closer to 7 f rom this appearance. 3.Aortic valve replacement on Coumadin, Coumadin toxicity. INR is up to 16 as outpatient, now down to 2.61 with therapy including vitamin K and FFP. 4.History of Pamela esophagitis on therapy for that as well, was limited due to possible interactio ns with Coumadin, however. Recommendations: 1.Serial H and H and transfuse p.r.n. 2.Protonix IV drip. 3.EGD urgently. 4.Consider IV octreotide and Surgery consultation in this patient. I would also recommend probable ICU monitoring after procedure. ALEJANDRA/ANTOINETTE Voice ID: [id number] Report ID: [id number]
[2018-02-05 23:50] LABS: Hematocrit 27.6 % (39.6-49.0)
[2018-02-06] MEDS: VITAMIN K (ADULT) 10 MG/ML SQ SCH (01:00)
[2018-02-06] MEDS: NA CHLORIDE 0.9% 1,000 ML IV SCH ×4 (01:19→22:07)
[2018-02-06 02:02] LABS: Hematocrit 27.2 % (39.6-49.0)
[2018-02-06] MEDS: OCTREOTIDE 500 MCG in NA CHLORIDE 0.9% 500 ML IV SCH ×3 (02:33→22:07)
[2018-02-06 04:14] LABS: Hematocrit 27.4 % (39.6-49.0)
[2018-02-06 06:06] LABS: Absolute Lymphocytes (CBC) 2.9 K/uL (0.7-4.9); Absolute Monocytes 0.6 K/uL (0.1-1.3); Absolute Neutrophil 3.9 K/uL (1.8-8.0); Basophils % 0.3 % (0-1.3); Eosinophils % 2.1 % (0-4.4); Hematocrit 28.1 % (39.6-49.0); Lymphocytes % 38.4 % (15.3-44.8); MCH 31.4 pg (27.0-35.0); MCV 92.5 fL (80-100); Monocytes % 8.1 % (3.3-12.3); RBC Red Blood Cell Count 3.04 M/uL (4.33-5.43)
[2018-02-06 06:19] LABS: ALT/SGPT 14 U/L (12-78); AST/SGOT 21 U/L (15-37); Albumin 2.6 g/dL (3.4-5.0); Alkaline Phosphatase 65 U/L (45-117); BUN Blood Urea Nitrogen 19 mg/dL (7-18); Bicarbonate 25 mmol/L (21-32); Bilirubin Total 1.5 mg/dL (0.2-1.0); Glucose Level 126 mg/dL (74-106); Potassium 4.1 mmol/L (3.5-5.1); Protein, Total 6.1 g/dL (6.4-8.2); Sodium Level 145 mmol/L (136-145)
[2018-02-06 07:54] LABS: Hematocrit 25.8 % (39.6-49.0)
[2018-02-06] MEDS ORDERED: KETOROLAC 30 MG/ML INJ IM ONE (08:25)
[2018-02-06] MEDS ORDERED: KETOROLAC 30 MG/ML INJ IV ONE (08:30)
--- NOTE | 2018-02-06 08:31 | P.PN ---
Subjective Date of Service: 02/05/18 Patient's hemoglobin continues to go down. Patient is hemodynamically becoming more unstable. If blood pressure has slowly tapered down. Patient's EGD revealed there was still active bleeding. Unable the cauterize the site of bleeding. Patient still with coagulopathy with INR of 2.6. Recheck INR. Will go ahead and transfuse 1 unit of packed red blood cell and may also need to give plasma to get INR under 1.5 so patient can start healing. Continue with PPI drip and may need to start octreotide and continues to bleed. Review of Systems 10-point ROS is otherwise unremarkable Physical Examination - Vital Signs Temperature: 97.5 F Blood Pressure: 91/58 Pulse: 78 Respirations: 19 Pulse Ox (%): 96 - Physical Exam General: Alert, In no apparent distress, Oriented x3 Respiratory: Clear to auscultation bilaterally, Normal air movement Gastrointestinal: Soft and benign, Non-distended, No tenderness, No rebound, No guarding Musculoskeletal: No clubbing, No swelling - Studies Medications List Reviewed: Yes Assessment & Plan - Problems (Diagnosis) (1) Supratherapeutic INR Onset Date: 02/05/18 Current Visit: Yes Status: Acute (2) UGIB (upper gastrointestinal bleed) Onset Date: 02/05/18 Current Visit: Yes Status: Acute (3) History of aortic valve replacement with metallic valve Current Visit: No Status: Chronic - Plan Plan: 1. Continue with IV hydration and PPI drip 2. Monitor H&H and INR. 3. Continue with pain control 4. Continue NPO 5. GI consultation appreciated 6. Transfuse 1 unit of packed red blood cells and may need to give FFP's as well 7. GI and DVT prophylaxis - Advance Directives Does patient have a Living Will: No Does patient have a Durable POA for Healthcare: Yes - Code Status/Comfort Care Code Status: Full Code Critical Care: Yes Time Spent Managing PTS Care (In Minutes): 35
[2018-02-06] MEDS: PANTOPRAZOLE INJ 80 MG in NA CHLORIDE 0.9% 250 ML IV SCH ×3 (09:00→21:37)
[2018-02-06] MEDS: VALPROATE SODIUM INJ 500 MG in NA CHLORIDE 0.9% 100 ML IV SCH ×2 (09:01→20:44)
[2018-02-06 14:06] LABS: Absolute Lymphocytes (CBC) 2.5 K/uL (0.7-4.9); Absolute Monocytes 0.5 K/uL (0.1-1.3); Basophils % 0.5 % (0-1.3); Hematocrit 26.9 % (39.6-49.0); Lymphocytes % 34.9 % (15.3-44.8); MCH 31.5 pg (27.0-35.0); MCV 92.4 fL (80-100); MPV 7.8 fL (7.6-11.3); Monocytes % 7.3 % (3.3-12.3); RBC Red Blood Cell Count 2.91 M/uL (4.33-5.43)
[2018-02-06 14:15] LABS: Protime INR 1.62
[2018-02-06 14:19] LABS: Magnesium 2.1 mg/dL (1.8-2.4); Phosphorus 2.4 mg/dL (2.5-4.9)
--- NOTE | 2018-02-06 14:43 | P.PN ---
Subjective Date of Service: 02/06/18 Chief Complaint: hematemesis Subjective: Improving (Looks more energetic and less pale today. He wants to eat if possible. He denies any stools yesterday or today, despite large amount of blood and clots in esophagus on limited EGD. CT abdomen revealed stasis of material in esophagus but not in stomach, therefore possible GI bleed at esophageal level only. INR 15 to 11 to 2.6 to 1.6 today.) Review of Systems 10-point ROS is otherwise unremarkable General: Weakness (improved ), Malaise (improved ) Gastrointestinal: Nausea (improved ), Vomiting (improved. No hematemesis today. ), Abdominal Pain (improved ) Physical Examination - Vital Signs Temperature: 97.5 F Blood Pressure: 94/62 Pulse: 74 Respirations: 22 Pulse Ox (%): 98 - Physical Exam General: Alert, In no apparent distress, Oriented x3, Cooperative HEENT: Atraumatic, Normocephalic, PERRLA, EOMI Neck: Supple Respiratory: Normal air movement Cardiovascular: Normal pulses Neurological: Normal speech, Normal strength at 5/5 x4 extr - Studies Medications List Reviewed: Yes Assessment And Plan - Current Problems (Diagnosis) (1) Hematemesis Current Visit: Yes Status: Acute Comment: Improved. But INR to 1.6; cardiology to adjust as needed for AVR. Will monitor. (2) Coagulopathy Current Visit: Yes Status: Acute Comment: Improved. (3) Coumadin toxicity Current Visit: Yes Status: Acute (4) Supratherapeutic INR Onset Date: 02/05/18 Current Visit: Yes Status: Acute (5) UGIB (upper gastrointestinal bleed) Onset Date: 02/05/18 Current Visit: Yes Status: Acute (6) Hemoperitoneum Onset Date: 01/11/18 Current Visit: No Status: Acute (7) CAD (coronary artery disease) Onset Date: 01/11/18 Current Visit: No Status: Chronic Qualifiers: Coronary Disease-Associated Artery/Lesion type: [place] artery [place] vs. transplanted heart: [place] heart Associated angina: without angina Qualified Code(s): I25.10 - Atherosclerotic heart disease of [place] coronary artery without angina pectoris (8) H/O hernia repair Current Visit: No Status: Chronic (9) History of aortic valve replacement with metallic valve Current Visit: No Status: Chronic (10) Seizures Onset Date: 01/11/18 Current Visit: No Status: Chronic - Plan REC: 1) await cardiology mgmt of INR 2) monitor H&Hs serially and transfuse prn 3) continue PPI IV drip therapy 4) continue ICU monitoring 5) trial of clear liquids
--- NOTE | 2018-02-06 15:32 | P.PN ---
Subjective Date of Service: 02/06/18 Chief Complaint: hematemesis Patient seen and examined at bedside. No family at bedside. No vomiting of blood since last night. States he would like to eat and walk around. He would like to get out of the ICU. Denies any dizziness, weakness, syncopal/ presyncopal episode, chest pain or shortness of breath Review of Systems As noted above Physical Examination - Vital Signs Temperature: 97.5 F Blood Pressure: 111/70 Pulse: 78 Respirations: 25 Pulse Ox (%): 99 - Physical Exam General: Alert, In no apparent distress HEENT: Atraumatic, PERRLA, EOMI Neck: Supple, JVD not distended Respiratory: Clear to auscultation bilaterally, Normal air movement Cardiovascular: Regular rate/rhythm, Normal S1 S2 Gastrointestinal: Normal bowel sounds, No tenderness Musculoskeletal: No tenderness Integumentary: No rashes Neurological: Normal speech, Normal tone, Normal affect Lymphatics: No axilla or inguinal lymphadenopathy - Studies Medications List Reviewed: Yes Assessment And Plan - Plan This is a 67-year-old male with: Hematemesis Warfarin induced coagulopathy Bleeding stopped overnight. INR this morning subtherapeutic at 1.6. But we will continue to hold anticoagulation at this time. The challenge here is to balance his INR so he does not bleed but he does not start to clot in his mechanical valve. As he is on seizure medications also, the staff early interact with the warfarin and make it harder to find this INR balance. General surgery, Dr. Mclaughlin consulted. GI, Dr. Chawla consulted. Cardiology, Dr. Haynes consulted Continue IV protonix drip and octerotide. Will stop if he continues to not bleed. At the time of exam, vital signs stable blood count stable. Will continue to monitor May consult hematology for further recommendations. Recent ventral hernia repair surgery Hx of seizure, on lamictal 200 mg BID and vimpat 200 mg bid at home Patient like to restart his medications, though he is strict NPO due to the active bleeding. Will start him on IV Depakote. Will recheck a Depakote levels 2 days Reiterated the seizure medications to interact with Coumadin. Mechanical valve, on AC with warfarin INR goal of 2.5-3.5. Continue holding anticoagulation at this time DVT prophylaxis: Held GI Prophylaxis:protonix drip Diet: NPO Dispo: Guarded prognosis. Conitnue to monitor in the ICU for bleeding. Physician Review: Patient Assessed, Agree with Above Assessment and Plan Time Spent Managing PTS Care (In Minutes): 45
--- NOTE | 2018-02-06 17:25 | CON ---
Date of Consultation: 02/06/2018 Diagnosis: Gastrointestinal bleed. History Of Present Illness: This is the case of a 67-year-old patient, who comes to us with GI bleed coming from the stomach. The patient is known by us in the past due to history of coagulopathy. Th is time he comes with once again increased INR of 11.1 with a PT of 134.3. When we saw him the last time about a month ago that we had to do surgery on him, he was having issues also with taking his an ticoagulation that he has to come back to the hospital, and we had to be give him vitamin K just to s tabilize the INR, so he does not bleed anymore. That was done successfully. No surgeries needed for that one, but he was explained the importance to discussed that with a sas administrator. Now he comes i n with an INR of 11.11. At that moment, we talked to the patient's family, the patient himself, and even the sas administrator. When the GI was going to do endoscopy, they found the patient had gastric ulc ers and at that moment he was having blood clots around the area. They did not want to disturb that, they brought him back to the ICU to go correct his anti-coagulopathy and a surgical consult was obta ined. Right now, patient is feeling great. He is talking to me normal right now. He is trying to u nderstand, trying to get see if he took medication wrong. The last time after a week of having him i n the hospital, he admitted that he was taking the Lovenox and Coumadin in excess does even when he w as explained many times the proper dose by his , by me, and by even his son. Also Dr. Sood cam e down and explained to him once again. Past Medical History: See my previous consult. Surgical History: See my previous consult. Allergies: SEE MY PREVIOUS CONSULT. Family History: See my previous consult Social Habits: See my previous consult. Review of Systems: A 10-point was otherwise unremarkable. Physical Examination: General: The patient is awake and alert. No distress. HEENT: Pupils are equal and reactive, anicteric. Neck: Supple. Chest: Clear. Abdomen: Soft and depressible. The previous side area of surgery several weeks ago is intact. No b leeding. Intact incision, well healed. No hernias. Extremities: Good capillary refill. No calf tenderness. Laboratory Data: Blood work shows INR of 11.11, hemoglobin of 8.9. CAT scan of abdomen and pelvis s hows no free air, pneumatosis, or free fluid in the case. The patient has distal esophagus dilated t o reveal circumferential wall thickening. Assessment: A 67-year-old patient, apparently with an upper GI ulcers with bleeding by hematemesis. The patient is not having those problems at this moment. He has not vomit any blood. Still they ar e trying to correct his anti-coagulopathy as it was done previously, and once again if that is contro lled then teaching once again and counseling about the proper use of anticoagulation, and eventually just treat his gastric ulcers. AYALA/ANTOINETTE Voice ID: [id number] Report ID: [id number]
[2018-02-06] MEDS: ACETAMINOPHEN 500 MG TAB PO PRN (21:36)
--- NOTE | 2018-02-06 23:23 | P.PN ---
Subjective Date of Service: 02/06/18 Chief Complaint: hematemesis had multiple ep[isodes of bloody vomiting yesterday Hb dropped to 8.7 BP borderline Cont IVF Gi evaluation Physical Examination - Vital Signs Temperature: 98.1 F Blood Pressure: 100/67 Pulse: 76 Respirations: 26 Pulse Ox (%): 96 - Physical Exam General: Oriented x3 Neck: Supple, Without JVD or thyroid abnormality Respiratory: Clear to auscultation bilaterally, Normal air movement Cardiovascular: No edema - Studies Medications List Reviewed: Yes Assessment And Plan - Current Problems (Diagnosis) (1) Supratherapeutic INR Onset Date: 02/05/18 Current Visit: Yes Status: Acute (2) UGIB (upper gastrointestinal bleed) Onset Date: 02/05/18 Current Visit: Yes Status: Acute (3) Seizures Onset Date: 01/11/18 Current Visit: No Status: Chronic - Plan A 67 Y/O man with PMhx of mechanical MV on coumadin, seizure disorder, CAD presented for bloody vomiting Pt is known to me from previous admission Pt was recently hospitalized in the ICU for abdominal hematoma as complaication form Inguinal hernia repair , pt had VINCENT due to hypotension that improved on IVF nephrology consult for fluid management Assessment and plan hx of VINCENT RFT WNL now euvolemic Cont IVF as BP is borderline Gi bleeding with supratheraputic INR INR in ER 11 ,S/P FFP and Vit K Coumadin on hld Gi evaluation Hx of seizure disorder Cont Po meds if no contraindication mechanical valve Coumadin on hold for now Physician Review: Patient Assessed, Agree with Above Assessment and Plan
[2018-02-07 08:13] LABS: Absolute Lymphocytes (CBC) 2.6 K/uL (0.7-4.9); Absolute Monocytes 0.4 K/uL (0.1-1.3); Absolute Neutrophil 2.8 K/uL (1.8-8.0); Basophils % 0.5 % (0-1.3); Eosinophils % 2.3 % (0-4.4); Hematocrit 25.1 % (39.6-49.0); Lymphocytes % 44.6 % (15.3-44.8); MCH 31.2 pg (27.0-35.0); MCV 92.8 fL (80-100); MPV 7.9 fL (7.6-11.3); Monocytes % 6.2 % (3.3-12.3)
[2018-02-07 08:19] LABS: Protime INR 1.74
[2018-02-07] MEDS: NA CHLORIDE 0.9% 1,000 ML IV SCH (08:27)
[2018-02-07] MEDS: PANTOPRAZOLE INJ 80 MG in NA CHLORIDE 0.9% 250 ML IV SCH ×2 (08:31→17:34)
[2018-02-07 08:32] LABS: ALT/SGPT 15 U/L (12-78); AST/SGOT 16 U/L (15-37); Albumin 2.3 g/dL (3.4-5.0); Alkaline Phosphatase 52 U/L (45-117); BUN Blood Urea Nitrogen 14 mg/dL (7-18); Bicarbonate 24 mmol/L (21-32); Bilirubin Total 0.9 mg/dL (0.2-1.0); Glucose Level 113 mg/dL (74-106); Potassium 3.9 mmol/L (3.5-5.1); Protein, Total 5.4 g/dL (6.4-8.2); Sodium Level 146 mmol/L (136-145)
[2018-02-07] MEDS: VALPROATE SODIUM INJ 500 MG in NA CHLORIDE 0.9% 100 ML IV SCH (09:19)
[2018-02-07] MEDS: OCTREOTIDE 500 MCG in NA CHLORIDE 0.9% 500 ML IV SCH ×2 (09:19→18:42)
--- NOTE | 2018-02-07 11:50 | P.PN ---
Subjective Date of Service: 02/07/18 Chief Complaint: hematemesis pt with Hx of VINCENT, admitted for GI bleeding , now Na 146 Hb dropped to 8.4, no more gi bleeding na 146, Cl 115 , saline induced change fluid to R/L Physical Examination - Vital Signs Temperature: 97.6 F Blood Pressure: 116/68 Pulse: 71 Respirations: 19 Pulse Ox (%): 96 - Physical Exam General: Oriented x3 HEENT: Atraumatic Neck: Supple, Without JVD or thyroid abnormality Respiratory: Clear to auscultation bilaterally, Normal air movement Cardiovascular: No edema, Regular rate/rhythm, Normal S1 S2 - Studies Medications List Reviewed: Yes Assessment And Plan - Current Problems (Diagnosis) (1) Supratherapeutic INR Onset Date: 02/05/18 Current Visit: Yes Status: Acute (2) UGIB (upper gastrointestinal bleed) Onset Date: 02/05/18 Current Visit: Yes Status: Acute (3) Seizures Onset Date: 01/11/18 Current Visit: No Status: Chronic - Plan A 67 Y/O man with PMhx of mechanical MV on coumadin, seizure disorder, CAD presented for bloody vomiting Pt is known to me from previous admission Pt was recently hospitalized in the ICU for abdominal hematoma as complaication form Inguinal hernia repair , pt had VINCENT due to hypotension that improved on IVF nephrology consult for fluid management Assessment and plan hx of VINCENT RFT WNL now euvolemic Cont IVF as BP is borderline hypernatremia Saline induced Change fluid to R/L Gi bleeding with supratheraputic INR INR in ER 11 ,S/P FFP and Vit K Coumadin on hld Gi evaluation Hx of seizure disorder Cont Po meds if no contraindication mechanical valve Coumadin on hold for now Physician Review: Patient Assessed, Agree with Above Assessment and Plan
--- NOTE | 2018-02-07 12:07 | P.PN ---
Subjective Date of Service: 02/07/18 Chief Complaint: hematemesis Subjective: Improving (No hematemesis for 24 hours now. Feels much better, tolerated clear liquid diet well yesterday and today. No melena. Had brown stool yesterday.) Review of Systems 10-point ROS is otherwise unremarkable General: Weakness (improved) Physical Examination - Vital Signs Temperature: 97.6 F Blood Pressure: 116/68 Pulse: 71 Respirations: 19 Pulse Ox (%): 96 - Physical Exam General: Alert, In no apparent distress, Oriented x3, Cooperative HEENT: Atraumatic, Normocephalic, PERRLA, EOMI Neck: Supple Respiratory: Normal air movement Cardiovascular: Normal pulses Gastrointestinal: Soft and benign, No tenderness, No rebound, No guarding Neurological: Normal speech, Normal strength at 5/5 x4 extr - Studies Medications List Reviewed: Yes Assessment And Plan - Current Problems (Diagnosis) (1) Hematemesis Current Visit: Yes Status: Acute Comment: Improved. But INR to 1.62 to 1.74 overnight; cardiology to adjust as needed for AVR. Will monitor. (2) Coagulopathy Current Visit: Yes Status: Acute Comment: Improved. (3) Coumadin toxicity Current Visit: Yes Status: Acute (4) Supratherapeutic INR Onset Date: 02/05/18 Current Visit: Yes Status: Acute (5) UGIB (upper gastrointestinal bleed) Onset Date: 02/05/18 Current Visit: Yes Status: Acute (6) Hemoperitoneum Onset Date: 01/11/18 Current Visit: No Status: Acute (7) CAD (coronary artery disease) Onset Date: 01/11/18 Current Visit: No Status: Chronic Qualifiers: Coronary Disease-Associated Artery/Lesion type: [place] artery [place] vs. transplanted heart: [place] heart Associated angina: without angina Qualified Code(s): I25.10 - Atherosclerotic heart disease of [place] coronary artery without angina pectoris (8) H/O hernia repair Current Visit: No Status: Chronic (9) History of aortic valve replacement with metallic valve Current Visit: No Status: Chronic (10) Seizures Onset Date: 01/11/18 Current Visit: No Status: Chronic - Plan REC: 1) await cardiology mgmt of INR. Consider starting Coumadin 2.5 mg po qd today 2) monitor H&Hs serially and transfuse prn 3) continue PPI IV drip therapy 4) consider transfer to floor tomorrow if stable 5) advance to full liquids Physician Review: Patient Assessed, Agree with Above Assessment and Plan
[2018-02-07] MEDS: WARFARIN SODIUM 1 MG TAB PO SCH (12:57)
[2018-02-07] MEDS: ENOXAPARIN 40 MG/0.4 ML SQ SCH ×2 (12:58→22:58)
[2018-02-07] MEDS: Ringers Lactate 1,000 ML IV SCH (13:00)
[2018-02-07 13:54] LABS: Hematocrit 26.2 % (39.6-49.0)
--- NOTE | 2018-02-07 19:09 | CON ---
Date of Consultation: 02/05/2018 Admitted on 02/04/[address] Hawthorne's service. The patient is seen on 02/05/2018. Reason For Consultation: GI bleed and coagulopathy. History Of Present Illness: Mr. Diaz is 67. Has a past medical history of dyslipidemia, mechanical aortic valve replacement approximately 30 years ago. This valve is mechanical. He has hypertension, dyslipidemia, and seizure disorder. He was in the hospital for GI bleed, elevated INR. Eventually discharged home on 5 mg of Coumadin. Apparently, he was not eating well. Was placed on nystatin swi sh and swallow. Was taking his seizure medication, Vimpat, which he has taken for at least 6 years. INR checked on Coumadin, which was a higher dose and that he normally took at home, showed an INR of 15. The patient saw Dr. Chawla. Had more bleeding. Endoscopy showed multiple blood clot in the es ophageal area. Admitted for further evaluation and treatment. Given vitamin K and fresh frozen plas ma. INR was 11, went down to 2.61 and then 1.62. The patient is n.p.o. except for clear liquid. Se izure medicines have been held. Past Medical History: As stated above. Allergies: INCLUDE ASPRIN. Review of Systems: Negative. Social History: Negative. Family History: Negative medications at. Medications: At home, he was supposed to be Vimpat, Coumadin and Zocor. Physical Examination: Vital Signs: Stable. He was afebrile. HEENT: Negative. Neck: Supple with no bruit. Chest: Clear. Cardiac: Revealed a regular rhythm and rate with a crisp aortic valve sound. Abdomen: Benign. Extremities: Revealed no clubbing, cyanosis, or edema. Diagnostic Data: As stated earlier, hemoglobin is 9.2. Impression And Plan: Mr. Diaz presents rather a challenge as far as his valve is concerned. It is a mechanical valve. He has to be on anticoagulation. We will wait for his INR to go down to 1.5. St art him on Lovenox at 0.5 mg/kg twice a day and start Coumadin at 1 mg once a day once he is able to take p.o. Maybe hold the Vimpat for about 24-48 hours. Consider discussing with Neurology, but they related the possibility of Vimpat increasing the INR. Consider Hematology consult to see if that ca n help. Follow his INR and hemoglobin. Reconsult with Dr. Chawla regarding his gastric ulcers, mayb e further endoscopy. Consider surgical consultation. Of note, the patient was taking 2 mg at home e very other day and then 1 mg alternating dosages. We will continue to follow him. He is stable card iac-mcduffie otherwise. His blood pressure has been fairly well controlled and he has not had any seizur es since he has come in. REYES/ANTOINETTE Voice ID: [id number] Report ID: [id number]
[2018-02-07] MEDS: VIMPAT 200 MG TABLET PO SCH (20:14)
[2018-02-07] MEDS: ACETAMINOPHEN 500 MG TAB PO PRN (20:35)
--- NOTE | 2018-02-07 22:23 | P.PN ---
Subjective Date of Service: 02/07/18 Chief Complaint: hematemesis Patient seen and examined at bedside. No family at bedside. No vomiting of blood x almost 48 hours. Tolerating full liquid diet. Had 2 seizures this am, abscence seizures with confusion and memory loss. Returned back to baseline afterwards. Denies any dizziness, weakness, syncopal/presyncopal episode, chest pain or shortness of breath Review of Systems As noted Physical Examination - Vital Signs Temperature: 98.9 F Blood Pressure: 123/70 Pulse: 64 Respirations: 25 Pulse Ox (%): 96 - Physical Exam General: Alert, In no apparent distress, Oriented x3 HEENT: Atraumatic, PERRLA, EOMI Neck: Supple, JVD not distended Respiratory: Clear to auscultation bilaterally, Normal air movement Cardiovascular: Regular rate/rhythm, Normal S1 S2 Gastrointestinal: Normal bowel sounds, No tenderness Musculoskeletal: No tenderness Integumentary: No rashes Neurological: Normal speech, Normal tone, Normal affect - Studies Medications List Reviewed: Yes Assessment And Plan - Plan This is a 67-year-old male with: Hematemesis Warfarin induced coagulopathy Bleeding stopped overnight. INR this morning subtherapeutic at 1.6. Anticoagulation started with lovenox 40 mg BID w/ 1 mg coumadin daily for bridging. Recheck INR tomorrow. The challenge here is to balance his INR so he does not bleed but he does not start to clot in his mechanical valve. As he is on seizure medications also, the staff early interact with the warfarin and make it harder to find this INR balance. General surgery, Dr. Mclaughlin consulted. Recommendations appreciated GI, Dr. Chawla consulted. Recommendations appreciated Cardiology, Dr. Haynes consulted. Recommendations appreciated Continue IV protonix drip and octerotide. Will stop if he continues to not bleed. At the time of exam, vital signs stable blood count stable. Will continue to monitor May consult hematology for further recommendations. Recent ventral hernia repair surgery Hx of seizure, with 2 seizures this am on IV depakote, likely had not reached therapeutic levels. Disconitnue IV depakote and restart home PO vimpat and lamictal as he is now able to tolerate PO. on lamictal 200 mg BID and vimpat 200 mg bid at home Reiterated the seizure medications to interact with Coumadin. Mechanical valve, on AC with warfarin INR goal of 2.5-3.5. See plan above DVT prophylaxis: As above GI Prophylaxis:protonix drip Diet: Full liquids, advance as tolerated. Dispo: Conitnue to monitor in the ICU for bleeding overnight, if he does well, transfer to floor. Physician Review: Patient Assessed, Agree with Above Assessment and Plan
[2018-02-08] MEDS: PANTOPRAZOLE INJ 80 MG in NA CHLORIDE 0.9% 250 ML IV SCH ×3 (00:06→21:06)
[2018-02-08] MEDS: Ringers Lactate 1,000 ML IV SCH ×3 (00:06→16:29)
[2018-02-08] MEDS: OCTREOTIDE 500 MCG in NA CHLORIDE 0.9% 500 ML IV SCH ×2 (05:02→15:00)
[2018-02-08 06:12] LABS: Protime INR 1.81
[2018-02-08 06:14] LABS: Absolute Lymphocytes (CBC) 3.4 K/uL (0.7-4.9); Absolute Monocytes 0.6 K/uL (0.1-1.3); Absolute Neutrophil 2.4 K/uL (1.8-8.0); Basophils % 0.5 % (0-1.3); Eosinophils % 3.7 % (0-4.4); Hematocrit 23.7 % (39.6-49.0); Lymphocytes % 51.9 % (15.3-44.8); MCV 91.5 fL (80-100); Monocytes % 8.5 % (3.3-12.3); RBC Red Blood Cell Count 2.59 M/uL (4.33-5.43)
[2018-02-08 06:17] LABS: ALT/SGPT 15 U/L (12-78); AST/SGOT 17 U/L (15-37); Albumin 2.1 g/dL (3.4-5.0); Alkaline Phosphatase 55 U/L (45-117); BUN Blood Urea Nitrogen 9 mg/dL (7-18); Bicarbonate 24 mmol/L (21-32); Bilirubin Total 0.8 mg/dL (0.2-1.0); Glucose Level 98 mg/dL (74-106); Magnesium 1.9 mg/dL (1.8-2.4); Potassium 3.3 mmol/L (3.5-5.1); Protein, Total 5.1 g/dL (6.4-8.2); Sodium Level 146 mmol/L (136-145)
[2018-02-08] MEDS ORDERED: POTASSIUM 25 MEQ EFFERV TAB PO ONE (08:01)
[2018-02-08 08:24] LABS: Anisocytosis 2+; Blood Morphology Comment NOTED (NOT SEEN); Burr Cells 1+; Platelet Estimate ADEQ; Poikilocytosis 1+
[2018-02-08] MEDS: VIMPAT 200 MG TABLET PO SCH ×2 (08:45→21:07)
[2018-02-08] MEDS: ENOXAPARIN 40 MG/0.4 ML SQ SCH ×2 (08:59→21:09)
[2018-02-08] MEDS: POTASSIUM PHOS IN 0.9 % NACL 15 MMOL/250 ML BAG IV ONE ×2 (13:06→13:08)
--- NOTE | 2018-02-08 14:42 | P.PN ---
Subjective Date of Service: 02/08/18 Chief Complaint: hematemesis Patient seen and examined at bedside. at bedside. No vomiting of blood. Tolerating full liquid diet. No further seizure activity overnight. Denies any dizziness, weakness, syncopal/presyncopal episode, chest pain or shortness of breath Review of Systems As noted Physical Examination - Vital Signs Temperature: 97.6 F Blood Pressure: 124/64 Pulse: 71 Respirations: 20 Pulse Ox (%): 97 - Physical Exam General: Alert, In no apparent distress, Oriented x3 HEENT: Atraumatic, PERRLA, EOMI Neck: Supple, JVD not distended Respiratory: Clear to auscultation bilaterally, Normal air movement Cardiovascular: Regular rate/rhythm, Normal S1 S2 Gastrointestinal: Normal bowel sounds, No tenderness Musculoskeletal: No tenderness Integumentary: No rashes Neurological: Normal speech, Normal tone, Normal affect - Studies Medications List Reviewed: Yes Assessment And Plan - Plan This is a 67-year-old male with: Hematemesis Warfarin induced coagulopathy Bleeding stopped. INR this morning subtherapeutic at 1.8. Anticoagulation started with lovenox 40 mg BID w/ 1 mg coumadin daily for bridging. Recheck INR tomorrow. The challenge here is to balance his INR so he does not bleed but he does not start to clot in his mechanical valve. As he is on seizure medications also, the staff early interact with the warfarin and make it harder to find this INR balance. General surgery, Dr. Mclaughlin consulted. Recommendations appreciated GI, Dr. Chawla consulted. Recommendations appreciated. Pending EGD today Cardiology, Dr. Haynes consulted. Recommendations appreciated Continue IV protonix drip and octerotide. Will stop if he continues to not bleed. At the time of exam, vital signs stable blood count stable. Will continue to monitor May consult hematology for further recommendations. Recent ventral hernia repair surgery Stable Hx of seizure, with 2 seizures this am on IV depakote, likely had not reached therapeutic levels. Disconitnue IV depakote and restart home PO vimpat and lamictal as he is now able to tolerate PO. on lamictal 200 mg BID and vimpat 200 mg bid at home Reiterated the seizure medications to interact with Coumadin. Mechanical valve, on AC with warfarin INR goal of 2.5-3.5. Anticoagulation started with lovenox 40 mg BID w/ 1 mg coumadin daily for bridging. Recheck INR tomorrow. DVT prophylaxis: As above GI Prophylaxis:protonix drip Diet: Full liquids, advance as tolerated. Dispo: Continue to monitor on floor. Pending EGD. Continue to monitor INR/ bridging to therapeutic level of 2.5-3.5 Physician Review: Patient Assessed, Agree with Above Assessment and Plan
[2018-02-08] MEDS: WARFARIN SODIUM 1 MG TAB PO SCH (17:51)
[2018-02-09] MEDS: OCTREOTIDE 500 MCG in NA CHLORIDE 0.9% 500 ML IV SCH ×3 (01:24→22:31)
--- NOTE | 2018-02-09 02:32 | PN ---
Date of Progress Note: 02/08/2018 Subjective: The patient has multiple medical problems including history of gastroenteritis. He rece ntly was admitted for GI bleeding and was found to have moderately severe acute kidney injury. Hemog lobin level dropped to 8.4. Sodium remained elevated. The patient is on normal saline. Review of Systems: Denies fever, chills. Physical Examination: Lungs: Clear to auscultation bilaterally. Heart: S1, S2. Abdomen: Soft, benign. Extremities: Slight edema. Assessment And Plan: 1.Acute kidney injury. Monitor renal panel and fluid balance. 2.Hypokalemia. Potassium is 3.3. Continue p.o. fluid restriction. 3.Avoid nonsteroidal anti-inflammatory medication in view of acute kidney injury. 4.Anemia in chronic kidney disease. Monitor hemoglobin level and consider ISHA. AC/ANTOINETTE Voice ID: [id number] Report ID: [id number]
[2018-02-09] MEDS: Ringers Lactate 1,000 ML IV SCH ×2 (04:27→20:27)
[2018-02-09 05:56] LABS: BUN Blood Urea Nitrogen 5 mg/dL (7-18); Bicarbonate 28 mmol/L (21-32); Glucose Level 113 mg/dL (74-106); Phosphorus 2.3 mg/dL (2.5-4.9); Potassium 3.4 mmol/L (3.5-5.1); Sodium Level 146 mmol/L (136-145)
[2018-02-09] MEDS ORDERED: POTASSIUM PHOS IN 0.9 % NACL 15 MMOL/250 ML BAG IV ONE (06:30)
[2018-02-09] MEDS: VIMPAT 200 MG TABLET PO SCH ×3 (09:00→20:23)
[2018-02-09] MEDS: ENOXAPARIN 40 MG/0.4 ML SQ SCH ×3 (09:00→20:19)
[2018-02-09 09:13] LABS: Protime INR 1.39
[2018-02-09 09:15] LABS: Absolute Lymphocytes (CBC) 2.8 K/uL (0.7-4.9); Absolute Monocytes 0.6 K/uL (0.1-1.3); Absolute Neutrophil 2.6 K/uL (1.8-8.0); Basophils % 0.4 % (0-1.3); Eosinophils % 4.8 % (0-4.4); Hematocrit 24.9 % (39.6-49.0); Lymphocytes % 44.3 % (15.3-44.8); MCH 31.4 pg (27.0-35.0); Monocytes % 9.3 % (3.3-12.3)
[2018-02-09] MEDS: PANTOPRAZOLE INJ 80 MG in NA CHLORIDE 0.9% 250 ML IV SCH ×2 (09:25→17:01)
[2018-02-09] MEDS ORDERED: KCL 20 MEQ/100 mL IVPB 20 MEQ/100 ML BAG IV SCH (10:30)
[2018-02-09 10:55] LABS: Anisocytosis 2+; Blood Morphology Comment NOTED (NOT SEEN); Burr Cells FEW; Hypochromasia 1+; Macrocytosis 1+; Platelet Estimate ADEQ; Polychromasia 1+
[2018-02-09] MEDS ORDERED: PROPOFOL 200 MG/20 ML VIAL IV ONE ×2 (12:37)
[2018-02-09] MEDS ORDERED: LIDOCAINE 1% MPF 5 ML VIAL ONE (12:38)
[2018-02-09] MEDS ORDERED: POTASSIUM 25 MEQ EFFERV TAB PO ONE (13:12)
--- NOTE | 2018-02-09 14:42 | ENDO RPT ---
[address], [address] EGD PROCEDURE REPORT EXAM DATE: 02/09/2018 PATIENT NAME: Abdirizak Diaz MR#: [id number] BIRTHDATE: 1950 ATTENDING: Dinesh Chawla Dr STATUS: inpatient HYDRAULIC CORRUGATING MACHINE OPERATOR: Shreya Miller RN, Audrey Miguel RN, and Dayna Williamson INDICATIONS: The patient is a 67 yr old Male here for an EGD due to hematemesis, upper G.I. bleeding, and anemia PROCEDURE PERFORMED: EGD, diagnostic MEDICATIONS: Per Anesthesia. TOPICAL ANESTHETIC: none CONSENT: The patient understands the risks and benefits of the procedure and understands that these risks include, but are not limited to: sedation, allergic reaction, infection, perforation and/or bleeding. Alternative means of evaluation and treatment include, among others: physical exam, x-rays, and/or surgical intervention. The patient elects to proceed with this endoscopic procedure. DESCRIPTION OF PROCEDURE: During intra-op preparation period all mechanical medical equipment was checked for proper function. Hand hygiene and appropriate measures for infection prevention was taken. Procedure, possible complications, and alternatives including but not limited to the possibility of bleeding, perforation, tear, infection, sepsis, need for surgery, need for blood transfusion, and anesthesia related complications were explained to the patient. After the risks, benefits and alternatives of the procedure were thoroughly explained, Informed consent was verified, confirmed and timeout was successfully executed by the treatment team. The patient was placed in the left lateral position. The patient was anesthetized with topical anesthesia. Through the anesthetized oropharyngeal area, the scope was passed without any difficulty. The Pentax EG-[id number] ([id number]) endoscope was introduced through the mouth and advanced to the esophagus lower. Retroflexion was not performed. The gastroscope was then slowly withdrawn and removed. LA Class D esophagitis was found in the lower esophagus. Large 3.5 X 1.5 cm ulcer with friable minutely bleeding edges was found in the lower esophagus. did not attempt to pass due to high risk of provocking recurrent upper GI bleed ADVERSE EVENTS: There were no complications. IMPRESSIONS: 1. LA Class D esophagitis in the lower esophagus 2. Large 3.5 X 1.5 cm ulcer with friable minutely bleeding edges was found in the lower esophagus did not attempt to pass due to high risk of provocking recurrent upper GI bleed RECOMMENDATIONS: acid suppression therapy REPEAT EXAM: Return in 2 month(s) for EGD. Dinesh Chawla Dr eSigned: Dinesh Chawla Dr 02/09/2018 12:47 PM cc: CPT CODES: ICD9 CODES: PATIENT NAME: Abdirizak DiazWilmer MR#: [id number]
[2018-02-09] MEDS ORDERED: WARFARIN SODIUM 2.5 MG TAB PO SCH (17:00)
--- NOTE | 2018-02-09 17:25 | PN ---
Date of Progress Note: 02/09/2018 Subjective: The patient was seen and examined. Chart reviewed and case discussed with RN. at the bedside. Treatment plan explained. All questions answered. The patient is going for EGD today. The patient denies any further bleeding overnight. Code Status: Full code. Medications: List reviewed. Review of Systems: Negative except as above. Physical Examination: Vital Signs: Temperature 98, heart rate 65, blood pressure 132/62, respirations 18, O2 98% on room a ir. General: Awake, alert, oriented x3, not in any acute distress. Elderly male. CV: S1, S2. Mechanical murmur present. Regular rate and rhythm. Respiratory: Moving air well bilaterally. No wheezing. Gastrointestinal: Abdomen is soft, nontender, nondistended. Positive bowel sounds. Extremities: No clubbing, cyanosis, or edema. Neurologic: Nonfocal. Laboratory Data: Sodium 146, potassium 3.4, chloride 111, CO2 28, BUN 5, creatinine 0.7, glucose 113 , calcium 7.7, phosphorus 2.3. WBC 6.3, H and H 8.5 and 24.9, platelets 251, neutrophils 41%. INR 1 .39. Assessment And Plan: A 67-year-old male with; 1.Warfarin-induced coagulopathy. INR is subtherapeutic. Currently on Lovenox 0.5/kg b.i.d. with a total of 40 mg of Lovenox b.i.d. with bridging for Coumadin. We will continue monitoring INR and adj ust Coumadin as necessary. The patient does have mechanical valve, needs to be anticoagulated; [facility], in the setting of hematemesis and GI bleed. GI and Surgery on board. The patient is going for E GD again today. Appreciate the professional employer consultant's input. We will continue Protonix and octreotide. Curre ntly hemodynamically stable. 2.Hematemesis. Going for EGD today. Dr. Chawla on board. 3.Recent ventral hernia repair surgery, stable. 4.History of seizure disorder. Has had seizures during this hospitalization. Was on IV Depakote; h owever, did not have therapeutic levels. The patient has been restarted on p.o. Vimpat and Lamictal and he is tolerating p.o. Seizure medications do interact with Coumadin. We will touch base with [facility] regarding alternatives. 5.Status post aortic mechanical valve, on anticoagulation with Coumadin. INR goal was 2.5 to 3.5. Currently on Lovenox 40 mg b.i.d. and Coumadin 1 mg daily. We will continue to monitor INR. Today, he is going for EGD. 6.Essential hypertension, stable. 7.Dyslipidemia, on statin. 8.Hypophosphatemia. We will replace and monitor. 9.Hypokalemia. Replace and monitor. Plan: Continue to monitor INR closely. The patient is going for EGD today. We will follow up on results of the EGD. Depending on EGD results, we may need to adjust Coumadin dose. /ANTOINETTE Voice ID: [id number] Report ID: [id number]
--- NOTE | 2018-02-09 17:32 | PN ---
Date of Progress Note: 02/09/2018 Subjective: The patient was admitted with acute kidney injury, recovered, resolved. GI bleed, follo w up with GI. The patient has been stable. Physical Examination: Vital Signs: Blood pressure 123/72, pulse of 67. Chest: Clear to auscultation. Heart: S1 and S2 regular. Abdomen: Soft, nontender. Extremities: Trace edema. Laboratory Data: H and H 8.5/24.9, sodium 146, potassium 3.4, bicarb 28, BUN 5, creatinine 0.7, calc ium 7.7, phosphorus 2.3. Current Medications: The patient on its include: 1.Tylenol. 2.LR. 3.Coumadin. 4.Zofran. 5.Pantoprazole. 6.Octreotide. Assessment And Plan: 1.Acute kidney injury secondary to prerenal, recovered, resolved. 2.Hypertension, controlled, optimal. Continue current medication. 3.Hypokalemia. We will supplement. 4.Anemia secondary to gastrointestinal bleed. We will follow up with GI. TISH Voice ID: [id number] Report ID: [id number]
[2018-02-09] MEDS: ACETAMINOPHEN 500 MG TAB PO PRN (20:28)
[2018-02-10] MEDS: PANTOPRAZOLE INJ 80 MG in NA CHLORIDE 0.9% 250 ML IV SCH ×3 (02:26→21:40)
[2018-02-10] MEDS: VIMPAT 200 MG TABLET PO SCH (06:03)
[2018-02-10 06:07] LABS: BUN Blood Urea Nitrogen 3 mg/dL (7-18); Bicarbonate 28 mmol/L (21-32); Glucose Level 109 mg/dL (74-106); Potassium 3.9 mmol/L (3.5-5.1); Sodium Level 144 mmol/L (136-145)
[2018-02-10] MEDS ORDERED: POTASSIUM 25 MEQ EFFERV TAB PO ONE (09:00)
[2018-02-10 09:02] LABS: Protime INR 1.31
[2018-02-10] MEDS: OCTREOTIDE 500 MCG in NA CHLORIDE 0.9% 500 ML IV SCH (09:10)
[2018-02-10] MEDS: ENOXAPARIN 40 MG/0.4 ML SQ SCH ×2 (09:10→21:00)
[2018-02-10] MEDS ORDERED: WARFARIN SODIUM 4 MG TAB PO SCH (17:00)
[2018-02-10] MEDS ORDERED: WARFARIN SODIUM 3 MG TAB PO SCH (17:04)
[2018-02-10] MEDS ORDERED: VIMPAT 200 MG TABLET PO SCH (18:00)
--- NOTE | 2018-02-10 19:51 | PN ---
Date of Progress Note: 02/10/2018 Subjective: The patient is seen and examined. Chart reviewed, and case discussed with RN and Dr. Frank. The patient denies any significant events overnight. No pain at this time. Review of Systems: Negative except as above. Medications: List reviewed. Physical Examination: Vital Signs: Temperature 98, heart rate 71, blood pressure 134/72, respirations 17, O2 of 95% on room air. General: Awake, alert, oriented x3, not in acute distress. An elderly male. CV: S1 and S2. Regular rate and rhythm. Peripheral pulses present. Mechanical murmur heard. Respiratory: Clear to auscultation bilaterally. No wheezing. No use of accessory muscles. Gastrointestinal: Abdomen is soft, nontender, nondistended. Positive bowel sounds. Extremities: No clubbing, cyanosis, or edema. Neurologic: Nonfocal. Laboratory Data: Sodium 144, potassium 3.9, chloride 109, CO2 of 28, BUN 3, creatinine 0.7, glucose 109, calcium 7.8. INR 1.31. WBC is 6.3, H and H 8.5 and 24.9, platelets 251, neutrophils 41.2%. Assessment: A 67-year-old male with: 1. Warfarin-induced coagulopathy. Now INR is subtherapeutic. Continue Lovenox 0.5 mg/kg b.i.d. for a total dose of 40 mg Lovenox b.i.d. and continue Coumadin. We will adjust dose today. INR decreased today. The patient is on Coumadin due to mechanical valve and requires anticoagulation, however, does have complicating factors including hematemesis and gastrointestinal bleed. The patient received esophagogastroduodenoscopy yesterday and did well. Did show some friability and possibly source of bleeding. We will continue with Protonix. 2. Hematemesis, status post esophagogastroduodenoscopy. Continue IV PPI. 3. Recent ventral hernia repair surgery, stable. 4. History of seizure disorder. Seizure medications will need to be continued due to acute seizure during this hospitalization. The patient does have some interaction due to Coumadin. The patient is on Vimpat and Lamictal. The patient's neurologist is in [place]. We will try to contact him regarding alternatives, however, is concerned as he has been through multiple medications and these seem to work for him. 5. Status post mechanical aortic valve, on anticoagulation with Coumadin. INR currently subtherapeutic. We will continue bridging with Lovenox. 6. Essential hypertension, stable. 7. Dyslipidemia. Continue statin. 8. Hypophosphatemia. We will replace and monitor. 9. Hypokalemia. We will replace and monitor. 10. Acute blood loss anemia Plan: Continue to monitor INR in the setting of GI bleed. Monitor H and H. The patient has a guarded prognosis. Appreciate consultants' input. FRED Voice ID: [id number] Report ID: [id number] ANDREW
[2018-02-10] MEDS: ONDANSETRON 4 MG/2 ML VIAL IV PRN (20:00)
[2018-02-10] MEDS ORDERED: MORPHINE 2 MG/ML SYR IV ONE (20:57)
[2018-02-10 21:18] LABS: Hematocrit 28.8 % (39.6-49.0)
[2018-02-10] MEDS ORDERED: OCTREOTIDE ACETATE 500 MCG/ML ONE (21:34)
[2018-02-10] MEDS ORDERED: NA CHLORIDE 0.9% 500 ML ONE ×2 (21:34→21:37)
[2018-02-10] MEDS ORDERED: NA CHLORIDE 0.9% 250 ML ONE (21:39)
[2018-02-10] MEDS ORDERED: PANTOPRAZOLE 40 MG INJ ONE (21:39)
[2018-02-10] MEDS ORDERED: OCTREOTIDE 500 MCG in NA CHLORIDE 0.9% 500 ML IV SCH (22:14)
[2018-02-10] MEDS ORDERED: NA CHLORIDE 0.9% 1,000 ML IV SCH (22:14)
[2018-02-10] MEDS ORDERED: MORPHINE 2 MG/ML SYR IV PRN (22:14)
--- NOTE | 2018-02-11 00:45 | P.DS ---
Admission Date: 02/04/18 Discharge Date: 02/11/18 Disposition: TRANSFER TO [facility] Discharge Condition: GOOD Reason for Admission: hematemesis Brief History of Present Illness: This is a 67-year-old male with history of a mechanical aortic valve replacement , recently ventral hernia repair surgery complicated by hemoperitoneum and recently discharged f from our facility returns with hematemesis. The patient was discharged on a Thursday with 2 tablets of Coumadin, 5 mg and was instructed to follow up outpatient for INR check and Coumadin dosage adjustment. Per patient, they did not check his INR on Thursday as they stated it was too early and the recheck did on when his INR was 15. He started having hematemesis throwing up buckets of blood, came into the ER where his INR was 11.1. His Coumadin had been held for 1 week prior to admission. In the ER, he was given 2 doses of vitamin K. at the time of my exam, he is actively throwing up blood, but was hemodynamically stable and he was alert oriented x3 Hospital Course: During his stay in the hospital due to patient was evaluated by Dr Chawla (GI) who did and EGD, remarkable for esophagitis, and and a large ulcer with friable edges on his lower part of esophagus. Gradually the patient improved, and when he was more stable, anticoagulation was resumed. He was treated with continuous infusion of Protonix and Octreotide. Unfortunately, last night, the patient start complaining again of abdominal pain, and had hematemesis, about 1/2 cup. He remained hemodynamically stable, Hgb remain stable as well. Current INR 1.31. The patient was transferred to ICU for close monitoring. The case was discussed with Dr Chawla, and at this point, he has recommended to transfer the patient to a tertiary facility for higher level of care, since he may require a thoracic surgeon on board. The patient has been accepted at [facility] in [facility]. Vital Signs/Physical Exam: Temp Pulse Resp BP Pulse Ox 97.3 F 73 12 152/82 H 96 02/10/18 21:40 02/10/18 21:40 02/10/18 21:40 02/10/18 21:40 02/10/18 21:40 Laboratory Data at Discharge: WBC 6.3 K/uL (4.3-10.9) 02/09/18 08:44 Hgb 9.7 g/dL (13.6-17.9) L 02/10/18 21:07 Hct 28.8 % (39.6-49.0) L D 02/10/18 21:07 Plt Count 251 K/uL (152-406) 02/09/18 08:44 PT 15.5 SECONDS (9.5-12.5) H 02/10/18 08:32 INR 1.31 02/10/18 08:32 APTT 31.5 SECONDS (24.3-36.9) 02/06/18 13:19 Sodium 144 mmol/L (136-145) 02/10/18 05:00 Potassium 3.9 mmol/L (3.5-5.1) 02/10/18 05:00 BUN 3 mg/dL (7-18) L 02/10/18 05:00 Creatinine 0.70 mg/dL (0.55-1.3) 02/10/18 05:00 Glucose 109 mg/dL (74-106) H 02/10/18 05:00 Phosphorus 2.3 mg/dL (2.5-4.9) L 02/09/18 05:15 Magnesium 1.9 mg/dL (1.8-2.4) 02/08/18 05:13 Total Bilirubin 0.8 mg/dL (0.2-1.0) 02/08/18 05:13 AST 17 U/L (15-37) 02/08/18 05:13 ALT 15 U/L (12-78) 02/08/18 05:13 Alkaline Phosphatase 55 U/L (45-117) 02/08/18 05:13 Lipase 237 U/L (73-393) 02/04/18 15:25 Home Medications: Ascorbic Acid [Vitamin C] 1,000 mg PO DAILY 12/31/17 Cholecalciferol (Vitamin D3) [Vitamin D3] 2,000 unit PO DAILY 12/31/17 Codeine/APAP [Tylenol #3*] 1 tab PO Q6HP PRN 12/31/17 Cyanocobalamin [Vitamin B-12*] 3,000 mcg PO DAILY 12/31/17 Lacosamide [Vimpat] 200 mg PO BID 12/31/17 Lamotrigine [Lamotrigine Odt] 200 mg PO BID 12/31/17 Loratadine [Claritin*] 10 mg PO DAILY 12/31/17 Simvastatin 40 mg PO DAILY 12/31/17 Ubidecarenone [Co Q-10] 200 mg PO DAILY 12/31/17 Warfarin Sodium [Coumadin*] 5 mg PO DAILY 5 PM tab 01/23/18 Diet: NPO Activity: Bedrest
--- NOTE | 2018-02-11 01:31 | PN ---
Date of Progress Note: 02/10/2018 Subjective: The patient was admitted with acute kidney injury and GI bleed secondary to supratherape utic INR. Physical Examination: Vital Signs: Blood pressure 127/70, pulse of 80. Chest: Clear to auscultation. Heart: S1, S2, regular. Abdomen: Soft, nontender. Extremities: No edema. Laboratory Data: H and H 8.5/24.9 sodium 144, potassium 3.9, bicarb 28, BUN 3, creatinine 0.7, calci um 7.8. Current Medications: The patient on its include Lovenox, Tylenol, loratadine, Zofran, pantoprazole. Assessment And Plan: 1.Acute kidney injury secondary to prerenal, recovered, resolved. 2.Gastrointestinal bleed status post esophagogastroduodenoscopy. We will follow up with the primary . 3.Hypertension, controlled, optimal. Continue to monitor. TISH Voice ID: [id number] Report ID: [id number]
[2018-02-11] MEDS ORDERED: HOME MED 1 EA UNK (Simvastatin [Simvastatin] 40 MG) PO SCH (09:00)
[2018-02-11] MEDS ORDERED: LORATADINE 10 MG TAB PO SCH (09:00)
== END 2018-02-11 02:28 | disposition short-term general hospital (02) | DRG 380 ==
LOC: ER 14:32 → ERHOLD 18:53 → 4TH 19:45 → 3RD-ICU 02-05 15:50 → 2ND 02-08 06:27 → 3RD-ICU 02-10 21:35
PROVIDERS: ADMIT Family Medicine; ATTEND Family Medicine
PROC: 30233K1 Transfusion of Nonautologous Frozen Plasma into Peripheral Vein, Percutaneous Approach (ICD-10-PCS; 2018-02-05)
PROC: 0DJ08ZZ Inspection of Upper Intestinal Tract, Via Natural or Artificial Opening Endoscopic (ICD-10-PCS; principal; 2018-02-05 13:30)
PROC: 0DJ08ZZ Inspection of Upper Intestinal Tract, Via Natural or Artificial Opening Endoscopic (ICD-10-PCS; 2018-02-09)
DX: K22.11 Ulcer of esophagus with bleeding (principal); K66.1 Hemoperitoneum; D68.32 Hemorrhagic disorder due to extrinsic circulating anticoagulants; E87.0 Hyperosmolality and hypernatremia; N17.9 Acute kidney failure, unspecified; D62 Acute posthemorrhagic anemia; K92.0 Hematemesis; T45.515A Adverse effect of anticoagulants, initial encounter; Y92.019 Unspecified place in single-family (private) house as the place of occurrence of the external cause; I10 Essential (primary) hypertension; E78.5 Hyperlipidemia, unspecified; Z79.01 Long term (current) use of anticoagulants; Z95.2 Presence of prosthetic heart valve; G40.909 Epilepsy, unspecified, not intractable, without status epilepticus; I25.10 Atherosclerotic heart disease of native coronary artery without angina pectoris; K25.9 Gastric ulcer, unspecified as acute or chronic, without hemorrhage or perforation; E87.6 Hypokalemia; D63.8 Anemia in other chronic diseases classified elsewhere; E83.39 Other disorders of phosphorus metabolism
CPT/HCPCS: 36415; 36430; 71045; 74177; 80048; 80053; 80076; 80164; 81003; 81015; 83690; 83735; 83880; 84100; 84132; 84484; 85014; 85018; 85025; 85610; 85730; 86850; 86900; 86901; 86927; 87086; 87088; 93005; 96365; 96366; 96372; 99285; C9113; J1650; J2270; J2354; J2405; J2704; J3430; J7030; P9017; P9059; Q9967

== ENCOUNTER 2018-03-17 08:44 | Emergency (ER) | payer OTHER ==
--- OUTSIDE RECORDS SUMMARY | 2018-03-17 08:57 | XMS REPORT | Clinical Summary ---
:1950 Author Organization [facility] Address [address] [place] [address] Care Team Providers Name Role Phone Unavailable Primary Care Provider Unavailable Allergies Active Allergy Reactions Severity Noted Date Comments Aspirin 02/11/2018 Levetiracetam 02/11/2018 Medications Medication Sig Dispensed Refills Start Date End Date Status lamoTRIgine Take 200 mg by 0 Active (LAMICTAL) 200 MG mouth 2 (two) tablet times daily. lacosamide 200 mg Tab Take 200 mg by 0 Active mouth 2 (two) times daily. atorvastatin Take 1 tablet 30 tablet 0 02/16/2018 03/18/2018 Active (LIPITOR) 40 MG (40 mg total) by tablet mouth nightly for 30 days. warfarin (COUMADIN) 1 Take 1 tablet (1 30 tablet 0 02/16/2018 03/18/2018 Active MG tablet mg total) by mouth daily for 30 days. polyethylene glycol Take 17 g by 14 each 0 02/16/2018 02/19/2018 (GLYCOLAX) 17 gram mouth 2 (two) packet times daily for 3 days. Active Problems Problem Noted Date Esophagitis determined by endoscopy 02/15/2018 Acute GI bleeding 02/15/2018 Valvular heart disease 02/15/2018 Physical deconditioning 02/15/2018 Hypertension 02/15/2018 Constipation 02/15/2018 Esophageal ulcer with bleeding 02/11/2018 Seizure disorder 02/11/2018 H/O aortic valve replacement 02/11/2018 Benign essential HTN 02/11/2018 HLD (hyperlipidemia) 02/11/2018 Acute blood loss anemia 02/11/2018 Protein-calorie malnutrition, moderate 02/11/2018 Resolved Problems Problem Noted Date Resolved Date Gastric ulcer 02/11/2018 02/11/2018 Encounters Date Type Specialty Care Team Description 02/11/2018 Anesthesia Event Gastroenterology Roxi Beyer MD 02/11/2018 Surgery Gastroenterology Jose Michelle UPPER ENDOSCOPY MD Lidia 02/11/2018 - Hospital Encounter Cardiology Camila Gomez, Benign essential HTN; 02/16/2018 Esophageal ulcer with bleeding; Kings, Gastric ulcer, unspecified chronicity, unspecified whether gastric ulcer hemorrhage or perforation present; MD Nadir H/O aortic valve replacement; Dar, Seizure disorder (HCC); KATHLEEN Ch (shortness of breath); S/P AVR (aortic valve replacement); Acute blood loss anemia; Esophagitis, [place] grade D; Confusion; Acute GI bleeding; Physical deconditioning; Protein-calorie malnutrition, moderate (HCC) 02/11/2018 Travel 02/11/2018 Telephone Critical Care Medicine Camila Gomez, [id number] Call MD after 03/16/2017 Family History Medical History Relation Name Comments No Known Problem Father Hyperlipidemia Mother Relation Name Status Comments Father Other at young age Mother Social History Tobacco Use Types Packs/Day Years Used Date Never Assessed Alcohol Use Drinks/Week oz/Week Comments No Alcohol Habits Answer Date Recorded How often do you have a drink containing alcohol? Never 02/11/2018 How many drinks containing alcohol do you have on a typical Not asked day when you are drinking? How often do you have six or more drinks on one occasion? Not asked Sex Assigned at Date Recorded Not on file Job Start Date Occupation Industry Not on file Not on file Not on file Travel History Travel Start Travel End No recent travel history available. Last Filed Vital Signs Vital Sign Reading Time Taken Blood Pressure 144/77 02/16/2018 8:38 AM CANCER RESEARCHER Pulse 90 02/16/2018 8:38 AM CANCER RESEARCHER Temperature 36.3 C (97.3 F) 02/16/2018 8:38 AM CANCER RESEARCHER Respiratory Rate 21 02/16/2018 8:38 AM CANCER RESEARCHER Oxygen Saturation 98% 02/16/2018 8:38 AM CANCER RESEARCHER Inhaled Oxygen Concentration 100% 02/11/2018 3:00 PM CANCER RESEARCHER Weight 85.8 kg (189 lb 2.5 oz) 02/16/2018 5:59 AM CANCER RESEARCHER Height 182.9 cm (6') 02/11/2018 4:00 AM CANCER RESEARCHER Body Mass Index 25.65 02/16/2018 5:59 AM CANCER RESEARCHER Plan of Treatment Not on file Procedures Procedure Name Priority Date/Time Associated Diagnosis Comments RHYTHM STRIP - SCAN 02/17/2018 11:11 AM CANCER RESEARCHER APTT Routine 02/16/2018 6:10 Results for this AM CANCER RESEARCHER procedure are in the results section. CBC (HEMOGRAM ONLY) Routine 02/16/2018 6:10 Results for this AM CANCER RESEARCHER procedure are in the results section. PROTHROMBIN TIME/INR Routine 02/16/2018 6:10 Results for this AM CANCER RESEARCHER procedure are in the results section. BASIC METABOLIC PANEL Routine 02/16/2018 6:10 Results for this (7) AM CANCER RESEARCHER procedure are in the results section. VANCOMYCIN LEVEL, Timed 02/15/2018 11:06 Results for this TROUGH PM CANCER RESEARCHER procedure are in the results section. APTT Routine 02/15/2018 7:32 Results for this AM CANCER RESEARCHER procedure are in the results section. EEG MONITORING WITH Routine 02/15/2018 6:17 Results for this VIDEO RECORDING EACH AM CANCER RESEARCHER procedure are in 24 HOURS the results section. CBC (HEMOGRAM ONLY) Routine 02/15/2018 4:41 Results for this AM CANCER RESEARCHER procedure are in the results section. PROTHROMBIN TIME/INR Routine 02/15/2018 4:41 Results for this AM CANCER RESEARCHER procedure are in the results section. BASIC METABOLIC PANEL Routine 02/15/2018 4:41 Results for this (7) AM CANCER RESEARCHER procedure are in the results section. APTT Routine 02/15/2018 1:39 Results for this AM CANCER RESEARCHER procedure are in the results section. XR ABDOMEN 1 VIEW Routine 02/14/2018 9:31 Results for this PM [facility]CER RESEARCHER procedure are in the results section. APTT Routine 02/14/2018 6:55 Results for this PM [facility]CER RESEARCHER procedure are in the results section. EEG AWAKE AND DROWSY STAT 02/14/2018 5:07 Results for this PM [facility]CER RESEARCHER procedure are in the results section. URINALYSIS W/ REFLEX Routine 02/14/2018 5:04 Results for this URINE CULTURE PM CANCER RESEARCHER procedure are in the results section. BLOOD CULTURE Routine 02/14/2018 1:03 Results for this PM [facility]CER RESEARCHER procedure are in the results section. BLOOD CULTURE Routine 02/14/2018 12:51 Results for this PM CANCER RESEARCHER procedure are in the results section. MR BRAIN WITHOUT IV Routine 02/14/2018 12:13 Results for this CONTRAST PM [facility]CER RESEARCHER procedure are in the results section. APTT Routine 02/14/2018 10:31 Results for this AM CANCER RESEARCHER procedure are in the results section. APTT Routine 02/14/2018 4:11 Results for this AM CANCER RESEARCHER procedure are in the results section. CBC (HEMOGRAM ONLY) Routine 02/14/2018 4:11 Results for this AM CANCER RESEARCHER procedure are in the results section. PROTHROMBIN TIME/INR Routine 02/14/2018 4:11 Results for this AM CANCER RESEARCHER procedure are in the results section. BASIC METABOLIC PANEL Routine 02/14/2018 4:11 Results for this (7) AM CANCER RESEARCHER procedure are in the results section. APTT Routine 02/13/2018 6:22 Results for this PM CANCER RESEARCHER procedure are in the results section. CT BRAIN WITHOUT IV Routine 02/13/2018 1:28 Results for this CONTRAST PM CANCER RESEARCHER procedure are in the results section. APTT Routine 02/13/2018 1:06 Results for this PM [facility]CER RESEARCHER procedure are in the results section. APTT Routine 02/13/2018 6:21 Results for this AM CANCER RESEARCHER procedure are in the results section. T4, FREE Routine 02/13/2018 4:25 Results for this AM CANCER RESEARCHER procedure are in the results section. APTT Routine 02/13/2018 4:25 Results for this AM CANCER RESEARCHER procedure are in the results section. CBC (HEMOGRAM ONLY) Routine 02/13/2018 4:25 Results for this AM CANCER RESEARCHER procedure are in the results section. PROTHROMBIN TIME/INR Routine 02/13/2018 4:25 Results for this AM CANCER RESEARCHER procedure are in the results section. VITAMIN B12 AND Routine 02/13/2018 4:25 Results for this FOLATE AM CANCER RESEARCHER procedure are in the results section. TSH/FREE T4 IF Routine 02/13/2018 4:25 Results for this INDICATED AM CANCER RESEARCHER procedure are in the results section. HEMOGLOBIN A1C Routine 02/13/2018 4:25 Results for this AM CANCER RESEARCHER procedure are in the results section. BASIC METABOLIC PANEL Routine 02/13/2018 4:25 Results for this (7) AM CANCER RESEARCHER procedure are in the results section. APTT Routine 02/12/2018 9:33 Results for this PM [facility]CER RESEARCHER procedure are in the results section. HEMOGLOBIN AND Routine 02/12/2018 9:33 Results for this HEMATOCRIT PM CANCER RESEARCHER procedure are in the results section. RPR Routine 02/12/2018 9:33 Results for this PM CANCER RESEARCHER procedure are in the results section. LIPID PANEL Routine 02/12/2018 9:33 Results for this PM [facility]CER RESEARCHER procedure are in the results section. CT/CTA CAROTID STAT 02/12/2018 5:59 Results for this PM CANCER RESEARCHER procedure are in the results section. CT/CTA BRAIN STAT 02/12/2018 5:59 Results for this PM CANCER RESEARCHER procedure are in the results section. TRANSFUSION SERVICE 02/12/2018 5:52 REPORT - SCAN PM CANCER RESEARCHER ECHOCARDIOGRAM REPORT 02/12/2018 5:50 - SCAN PM CANCER RESEARCHER BASIC METABOLIC PANEL Routine 02/12/2018 2:47 Results for this (7) PM CANCER RESEARCHER procedure are in the results section. APTT Routine 02/12/2018 2:47 Results for this PM [facility]CER RESEARCHER procedure are in the results section. HEMOGLOBIN AND Routine 02/12/2018 2:47 Results for this HEMATOCRIT PM CANCER RESEARCHER procedure are in the results section. 2D ECHO W/ DOPPLER STAT 02/12/2018 1:31 Results for this (CW/PW/COLOR) PM CANCER RESEARCHER procedure are in the results section. CT BRAIN/STROKE TEST STAT 02/12/2018 12:18 Results for this DESIGN PM CANCER RESEARCHER procedure are in the results section. POCT-GLUCOSE METER Routine 02/12/2018 11:58 Results for this AM CANCER RESEARCHER procedure are in the results section. HEMOGLOBIN AND Routine 02/12/2018 6:20 Results for this HEMATOCRIT AM CANCER RESEARCHER procedure are in the results section. APTT Routine 02/12/2018 6:20 Results for this AM CANCER RESEARCHER procedure are in the results section. CBC (HEMOGRAM ONLY) Routine 02/12/2018 6:20 Results for this AM CANCER RESEARCHER procedure are in the results section. PROTHROMBIN TIME/INR Routine 02/12/2018 6:20 Results for this AM CANCER RESEARCHER procedure are in the results section. APTT Routine 02/11/2018 10:54 Results for this PM [facility]CER RESEARCHER procedure are in the results section. HEMOGLOBIN AND Routine 02/11/2018 10:43 Results for this HEMATOCRIT PM CANCER RESEARCHER procedure are in the results section. POCT-GLUCOSE METER Routine 02/11/2018 5:12 Results for this PM CANCER RESEARCHER procedure are in the results section. APTT Routine 02/11/2018 3:20 Results for this PM CANCER RESEARCHER procedure are in the results section. TYPE AND SCREEN, Routine 02/11/2018 1:51 Results for this AUTOMATED PM CANCER RESEARCHER procedure are in the results section. REPORT OF PROCEDURE - 02/11/2018 1:50 ENDOSCOPY URL PM CANCER RESEARCHER HEMOGLOBIN AND Routine 02/11/2018 1:50 Results for this HEMATOCRIT PM CANCER RESEARCHER procedure are in the results section. UPPER ENDOSCOPY 02/11/2018 1:00 Gastrointestinal PM CANCER RESEARCHER hemorrhage, unspecified gastrointestinal hemorrhage type Special Needs egd w/ anes POCT-GLUCOSE METER Routine 02/11/2018 12:15 PM CANCER RESEARCHER XR ABDOMEN 1 VIEW STAT 02/11/2018 6:50 AM CANCER RESEARCHER XR CHEST 1 VIEW STAT 02/11/2018 6:45 AM CANCER RESEARCHER Results for this PORTABLE/BEDSIDE procedure are in the results section. CBC W/PLT COUNT & AUTO Routine 02/11/2018 5:21 AM CANCER RESEARCHER Results for this DIFFERENTIAL procedure are in the results section. PHOSPHORUS Routine 02/11/2018 5:21 AM CANCER RESEARCHER MAGNESIUM Routine 02/11/2018 5:21 AM CANCER RESEARCHER COMPREHENSIVE METABOLIC Routine 02/11/2018 5:21 AM CANCER RESEARCHER Results for this PANEL procedure are in the results section. PROTHROMBIN TIME/INR Routine 02/11/2018 5:21 AM CANCER RESEARCHER CBC W/PLT COUNT & AUTO Routine 02/11/2018 5:21 AM CANCER RESEARCHER Results for this DIFFERENTIAL procedure are in the results section. LAMOTRIGINE LEVEL Routine 02/11/2018 5:21 AM CANCER RESEARCHER after 03/16/2017 Results RHYTHM STRIP - SCAN (02/17/2018 11:11 AM CANCER RESEARCHER) Narrative Performed At aPTT (02/16/2018 6:10 AM CANCER RESEARCHER)Only the most recent of15 resultswithin the time period is included. PTT 97.6 (H) 22.5 - 36.0 seconds [facility] Specimen Blood - Arm, Right Narrative Performed At While on warfarin. [facility] Performing Organization Address City/State/Zipcode Phone Number [facility] [address] [place] [address] CENTER Daily Prothrombin time/INR while on warfarin (02/16/2018 6:10 AM CANCER RESEARCHER)Only the most recent of6 resultswithin the time period is included. Protime 24.2 (H) 11.7 - 14.7 seconds [facility] INR 2.2 <=5.9 [facility] Specimen Blood - Arm, Right Narrative Performed At RECOMMENDED COUMADIN/WARFARIN INR THERAPY [facility] RANGES STANDARD DOSE: 2.0 - 3.0 Includes: PROPHYLAXIS for venous thrombosis, systemic embolization; TREATMENT for venous thrombosis and/or pulmonary embolus. HIGH RISK: Target INR is 2.5-3.5 for patients with mechanical heart valves. While on warfarin. Performing Organization Address City/[facility] Phone Number [address] [address] CENTER CBC (hemogram only) (02/16/2018 6:10 AM CANCER RESEARCHER)Only the most recent of5 resultswithin the time period is included. WBC 7.6 3.5 - 10.5 K/L [facility] RBC 2.74 (L) 4.63 - 6.08 M/L [facility] Hemoglobin 8.6 (L) 13.7 - 17.5 GM/DL [facility] Hematocrit 27.5 (L) 40.1 - 51.0 % [facility] MCV 100.4 (H) 79.0 - 92.2 fL [facility] MCH 31.4 25.7 - 32.2 pg [facility] MCHC 31.3 (L) 32.3 - 36.5 GM/DL [facility] RDW 19.2 (H) 11.6 - 14.4 % [facility] Platelets 284 150 - 450 K/CU MM [facility] MPV 10.1 9.4 - 12.4 fL [facility] nRBC 0 0 - 0 /100 WBC [facility] Specimen Blood - Arm, Right Performing Organization Address City/State/Zipcode Phone Number [facility] [address] [place] [address] [place] Basic Metabolic Panel (02/16/2018 6:10 AM CANCER RESEARCHER)Only the most recent of5 resultswithin the time period is included. Sodium 138 136 - 145 meq/L [facility] Potassium 3.6 3.5 - 5.1 meq/L [facility] Chloride 108 (H) 98 - 107 meq/L [facility] CO2 26 22 - 29 meq/L [facility] BUN 6 (L) 7 - 21 mg/dL [facility] Creatinine 0.77 0.57 - 1.25 mg/dL [facility] Glucose 94 70 - 105 mg/dL [facility] Calcium 8.6 8.4 - 10.2 mg/dL [facility] EGFR Comment: INSUFFICIENT CLINICAL mL/min/1.73 sq m [facility] DATA TO CALCULATE ESTIMATED [facility] GFR. Specimen Blood - Arm, Right Performing Organization Address City/State/Zipcode Phone Number [place] [phone] [place] Vancomycin level, trough (02/15/2018 11:06 PM CANCER RESEARCHER) Vancomycin Tr 15.4 10.0 - 20.0 ug/mL [facility] Specimen Blood - Arm, Right Performing Organization Address City/State/Zipcode Phone Number [address] [phone] [place] EEG monitoring with video recording each 24 hours (02/15/2018 6:17 AM CANCER RESEARCHER) Narrative Performed At Date(s) of EE02/14/18; 02/15/18 GE RIS DATE OF REPORT: 02/15/18 ACC: [id number] EEG Number: [id number] Test Location: Floor 2431 Start time: 02/14/18 at 1711 Stop time: 02/15/18 at 1403 ICD-10: [id number] CPT Code: R41.82 HISTORY: 67 year old male with h/o epilepsy s/p outpatient hernia repair presented with esophagitis, gastritis, duodenditis, developed hematemesis and abdominal pain with alteration of awareness. MEDICATIONS THAT COULD AFFECT EEG: Lacosamide, Lamotrigine TECHNICAL SUMMARY: This is a digital video-EEG recorded with 32 input channels reviewed with bipolar and referential montages using the modified RolePoint system nomenclature. DESCRIPTION OF RECORD: During the maximally alert state an 8.5 Hz posterior dominant rhythm was seen that was symmetric, reactive to eye opening and well regulated.More anteriorly, low voltage frontocentral beta predominated.Drowsiness was characterized by alpha attenuation and increased frontocentral theta, vertex sharp transients. Stage 2 sleep was reached characterized by symmetric sleep spindles. Towards the latter half of the recording, there is progressively diffuse electrode and movement artifact. SIGNIFICANT VIDEO EVENTS: None SIGNIFICANT ELECTROCARDIOGRAM EVENTS: None HV: Hyperventilation was not performed. PHOTIC STIMULATION: Photic stimulation was not performed. IMPRESSION: Normal Awake and Sleep EEG CLINICAL CORRELATION: An EEG without epileptiform discharges does not exclude the possibility of epilepsy.It the clinical suspicion of epilepsy remains, consider additional EEG recordings. Oleksandr Wiseman MD Neurophysiology Fellow Jackson Mosley MD PhD Attending Neurophysiologist Formerly named [facility] Procedure Note Interface, External Ris In - 02/15/2018 3:04 PM CANCER RESEARCHER Date(s) of EE02/14/18; 02/15/18 DATE OF REPORT: 02/15/18 ACC: [id number] EEG Number: [id number] Test Location: Floor 2431 Start time: 02/14/18 at 1711 Stop time: 02/15/18 at 1403 ICD-10: [id number] CPT Code: R41.82 HISTORY: 67 year old male with h/o epilepsy s/p outpatient hernia repair presented with esophagitis, gastritis, duodenditis, developed hematemesis and abdominal pain with alteration of awareness. MEDICATIONS THAT COULD AFFECT EEG: Lacosamide, Lamotrigine TECHNICAL SUMMARY: This is a digital video-EEG recorded with 32 input channels reviewed with bipolar and referential montages using the modified RolePoint system nomenclature. DESCRIPTION OF RECORD: During the maximally alert state an 8.5 Hz posterior dominant rhythm was seen that was symmetric, reactive to eye opening and well regulated. More anteriorly, low voltage frontocentral beta predominated. Drowsiness was characterized by alpha attenuation and increased frontocentral theta, vertex sharp transients. Stage 2 sleep was reached characterized by symmetric sleep spindles. Towards the latter half of the recording, there is progressively diffuse electrode and movement artifact. SIGNIFICANT VIDEO EVENTS: None SIGNIFICANT ELECTROCARDIOGRAM EVENTS: None HV: Hyperventilation was not performed. PHOTIC STIMULATION: Photic stimulation was not performed. IMPRESSION: Normal Awake and Sleep EEG CLINICAL CORRELATION: An EEG without epileptiform discharges does not exclude the possibility of epilepsy. It the clinical suspicion of epilepsy remains, consider additional EEG recordings. Oleksandr Wiseman MD Neurophysiology Fellow Jackson Mosley MD PhD Attending Neurophysiologist Formerly named [facility] Performing Organization Address City/State/Zipcode Phone Number [facility] [employer] XR abdomen / KUB 1 view (02/14/2018 9:31 PM CANCER RESEARCHER)Only the most recent of2 resultswithin the time period is included. Narrative Performed At FINAL REPORT [facility] [employer] CLINICAL HISTORY: constipation TECHNIQUE: RAD, ABDOMEN/KUB, 1 VIEW AP COMPARISON: Pain radiograph of the abdomen dated 02/11/2018. Impression: Moderate stool burden throughout the large bowel with nonspecific bowel gas pattern. Unchanged 1.2 cm calcification over the right upper quadrant favored to represent cholelithiasis. Additional 6 mm calcification in the left upper quadrant is superior to the left renal shadow, possibly vascular versus contents in the fecal stream. Multiple metallic punctate densities overlie the left lower quadrant and pelvis. Normal osseous structures. Signed: Hernando Escobar MD Report Verified Date/Time:02/14/2018 21:56:57 Reading Location: [address] Transitional Reading Room Procedure Note Interface, External Ris In - 02/14/2018 9:59 PM CANCER RESEARCHER FINAL REPORT CLINICAL HISTORY: constipation TECHNIQUE: RAD, ABDOMEN/KUB, 1 VIEW AP COMPARISON: Pain radiograph of the abdomen dated 02/11/2018. Impression: Moderate stool burden throughout the large bowel with nonspecific bowel gas pattern. Unchanged 1.2 cm calcification over the right upper quadrant favored to represent cholelithiasis. Additional 6 mm calcification in the left upper quadrant is superior to the left renal shadow, possibly vascular versus contents in the fecal stream. Multiple metallic punctate densities overlie the left lower quadrant and pelvis. Normal osseous structures. Signed: Hernando Escobar MD Report Verified Date/Time: 02/14/2018 21:56:57 Reading Location: [facility] Transitional Reading Room Performing Organization Address City/State/Zipcode Phone Number [employer] EEG AWAKE AND DROWSY (02/14/2018 5:07 PM CANCER RESEARCHER) Narrative Performed At Date(s) of EE02/14/18 [facility] [employer] DATE OF REPORT: 02/14/18 ACC: [id number] EEG Number: [id number] Test Location: Inpatient ICU Start time: 1645 Stop time: 1951 ICD-10: [id number] CPT Code: G40.909 HISTORY: 67 year old male s/p outpatient hernia repair presented with esophagitis, gastritis, duodenditis, developed hematemesis and abdominal pain. Had acute left sided reported weakness. MEDICATIONS THAT COULD AFFECT EEG: Lacosamide, Lamotrigine TECHNICAL SUMMARY: This is a digital video-EEG recorded with 32 input channels reviewed with bipolar and referential montages using the modified combinatorial system nomenclature. DESCRIPTION OF RECORD: During the maximally alert state an 8-9 Hz posterior dominant rhythm was seen that was symmetric, reactive to eye opening and well regulated.More anteriorly, low voltage frontocentral beta predominated.Drowsiness was characterized by alpha attenuation and increased frontocentral theta, vertex sharp transients. Stage 2 sleep was reached characterized by symmetric sleep spindles. SIGNIFICANT VIDEO EVENTS: None SIGNIFICANT ELECTROCARDIOGRAM EVENTS: None HV: Hyperventilation was not performed. PHOTIC STIMULATION: Photic stimulation was done from 1-33 Hz; no photic driving was seen; photoparoxysmal responses were absent. IMPRESSION: Normal Awake and Sleep EEG CLINICAL CORRELATION: An EEG without epileptiform discharges does not exclude the possibility of epilepsy.It the clinical suspicion of epilepsy remains, consider additional EEG recordings. Joseluis Powell MD Neurophysiology Fellow Jagruti Russo Attending Neurophysiologist Formerly named [facility] Procedure Note Interface, External Ris In - 02/14/2018 8:02 PM CANCER RESEARCHER Date(s) of EE02/14/18 DATE OF REPORT: 02/14/18 ACC: [id number] EEG Number: [id number] Test Location: Inpatient ICU Start time: 1645 Stop time: 1951 ICD-10: [id number] CPT Code: G40.909 HISTORY: 67 year old male s/p outpatient hernia repair presented with esophagitis, gastritis, duodenditis, developed hematemesis and abdominal pain. Had acute left sided reported weakness. MEDICATIONS THAT COULD AFFECT EEG: Lacosamide, Lamotrigine TECHNICAL SUMMARY: This is a digital video-EEG recorded with 32 input channels reviewed with bipolar and referential montages using the modified combinatorial system nomenclature. DESCRIPTION OF RECORD: During the maximally alert state an 8-9 Hz posterior dominant rhythm was seen that was symmetric, reactive to eye opening and well regulated. More anteriorly, low voltage frontocentral beta predominated. Drowsiness was characterized by alpha attenuation and increased frontocentral theta, vertex sharp transients. Stage 2 sleep was reached characterized by symmetric sleep spindles. SIGNIFICANT VIDEO EVENTS: None SIGNIFICANT ELECTROCARDIOGRAM EVENTS: None HV: Hyperventilation was not performed. PHOTIC STIMULATION: Photic stimulation was done from 1-33 Hz; no photic driving was seen; photoparoxysmal responses were absent. IMPRESSION: Normal Awake and Sleep EEG CLINICAL CORRELATION: An EEG without epileptiform discharges does not exclude the possibility of epilepsy. It the clinical suspicion of epilepsy remains, consider additional EEG recordings. Joseluis Powell MD Neurophysiology Fellow Jagruti Russo Attending Neurophysiologist Formerly named [facility] Performing Organization Address City/State/Zipcode Phone Number GE RIS Urinalysis w/Microscopic + Reflex to Culture (02/14/2018 5:04 PM CANCER RESEARCHER) Color, UA Yellow [facility] Clarity, UA Clear [facility] Specific [place], UA 1.016 1.001 - 1.035 [facility] pH, UA 7.5 5.0 - 8.0 [facility] Protein, UA 30 mg/dL (A) Negative [facility] Glucose, UA Negative Negative [facility] Ketones, UA Negative Negative [facility] Bilirubin, UA Negative Negative [facility] Blood, UA Negative Negative [facility] Nitrite, UA Negative Negative [facility] Leukocytes, UA Negative Negative [facility] Urobilinogen, UA 3.0 (H) 0.2 - 1.0 mg/dL [facility] RBC, UA <1 /HPF [facility] WBC, UA 1 /HPF [facility] Mucus Occasional [facility] Squam Epithel, UA <1 /HPF [facility] Specimen Source [facility] Specimen Urine - Urine, Clean Catch Performing Organization Address [facility] Phone Number [address] [address] [phone] [place] Blood culture (02/14/2018 1:03 PM CANCER RESEARCHER)Only the most recent of2 resultswithin the time period is included. Result No growth in 5 days [facility] Specimen Blood - Arm, Left Performing Organization Address [facility] Phone Number [facility] [address] [place] [address] [place] MR brain without IV contrast (02/14/2018 12:13 PM CANCER RESEARCHER) Narrative Performed At FINAL REPORT [employer] [facility] MRI brain without contrast 02/14/2018 12:28 PM CLINICAL INDICATION: stroke TECHNIQUE: Multiplanar, multisequence MR imaging of the brain was performed utilizing the following imaging sequences: Axial T1, T2, FLAIR, GRE, and DWI; sagittal and coronal T1-weighted images. COMPARISON: None available FINDINGS: There is no acute infarct, hematoma, mass, extra-axial collection, or hydrocephalus. There is rare chronic microvascular ischemia in the supratentorial white matter. There are small chronic infarcts in the cerebellum. There is generalized parenchymal volume loss. Normal appearing flow-voids are present in the major intracranial vascular structures. The sellar and pineal regions are normal. The craniovertebral junction is intact. The orbits, face, and skull base are without worrisome finding. IMPRESSION: Chronic ischemic changes. No acute intracranial abnormality. Signed: Brayden Mg MD Report Verified Date/Time:02/14/2018 12:31:11 Reading Location: [address] Neuro Reading Room Procedure Note Interface, External Ris In - 02/14/2018 12:33 PM CANCER RESEARCHER FINAL REPORT MRI brain without contrast 02/14/2018 12:28 PM CLINICAL INDICATION: stroke TECHNIQUE: Multiplanar, multisequence MR imaging of the brain was performed utilizing the following imaging sequences: Axial T1, T2, FLAIR, GRE, and DWI; sagittal and coronal T1-weighted images. COMPARISON: None available FINDINGS: There is no acute infarct, hematoma, mass, extra-axial collection, or hydrocephalus. There is rare chronic microvascular ischemia in the supratentorial white matter. There are small chronic infarcts in the cerebellum. There is generalized parenchymal volume loss. Normal appearing flow-voids are present in the major intracranial vascular structures. The sellar and pineal regions are normal. The craniovertebral junction is intact. The orbits, face, and skull base are without worrisome finding. IMPRESSION: Chronic ischemic changes. No acute intracranial abnormality. Signed: Brayden Mg MD Report Verified Date/Time: 02/14/2018 12:31:11 Reading Location: [facility] Neuro Reading Room Performing Organization Address City/State/Zipcode Phone Number [facility] brain without IV contrast (02/13/2018 1:28 PM CANCER RESEARCHER) Narrative Performed At FINAL REPORT [facility] head without contrast 02/13/2018 1:31 PM CLINICAL HISTORY: Stroke TECHNIQUE: Axial noncontrast CT images through the head were obtained. This examination was performed according to our departmental dose optimization program, which includes automated exposure control, adjustment of the mA and/or kV according to patient size, and/or use of iterated reconstruction technique. COMPARISON: 02/12/2018 FINDINGS: There is no hemorrhage, extra-axial collection, mass, hydrocephalus, or midline shift. There is mild microvascular ischemia in the supratentorial white matter and deep sol nuclei. There are punctate infarcts in the cerebellum. There is generalized parenchymal volume loss. The visualized paranasal sinuses and mastoid air cells are well aerated. The skull is intact. IMPRESSION: No intracranial hemorrhage or mass effect. Mild ischemic changes, which can be definitively characterized with MRI if clinically indicated. Signed: Brayden Mg MD Report Verified Date/Time:02/13/2018 13:33:21 Reading Location: [address] Neuro Reading Room Procedure Note Interface, External Ris In - 02/13/2018 1:35 PM CANCER RESEARCHER FINAL REPORT CT head without contrast 02/13/2018 1:31 PM CLINICAL HISTORY: Stroke TECHNIQUE: Axial noncontrast CT images through the head were obtained. This examination was performed according to our departmental dose optimization program, which includes automated exposure control, adjustment of the mA and/or kV according to patient size, and/or use of iterated reconstruction technique. COMPARISON: 02/12/2018 FINDINGS: There is no hemorrhage, extra-axial collection, mass, hydrocephalus, or midline shift. There is mild microvascular ischemia in the supratentorial white matter and deep sol nuclei. There are punctate infarcts in the cerebellum. There is generalized parenchymal volume loss. The visualized paranasal sinuses and mastoid air cells are well aerated. The skull is intact. IMPRESSION: No intracranial hemorrhage or mass effect. Mild ischemic changes, which can be definitively characterized with MRI if clinically indicated. Signed: Brayden Mg MD Report Verified Date/Time: 02/13/2018 13:33:21 Reading Location: [address] Neuro Reading Room Performing Organization Address City/[facility] Phone Number GE RIS Vitamin B12 and Folate (02/13/2018 4:25 AM CANCER RESEARCHER) Vitamin B12 >2000 (H) 213 - 816 pg/mL [facility] Folate 4.8 (L) >=7.0 ng/mL [facility] Specimen Blood - Line, Venous Performing Organization Address [facility] Phone Number [address] [address] CENTER TSH/Free T4 If Indicated (02/13/2018 4:25 AM CANCER RESEARCHER) TSH 9.92 (H) 0.35 - 4.94 uIU/mL [facility] Specimen Blood - Line, Venous Performing Organization Address [facility] Phone Number [address] [address] [place] T4, free (02/13/2018 4:25 AM CANCER RESEARCHER) Free T4 0.94 0.70 - 1.48 ng/dL [facility] Specimen Blood - Line, Venous Performing Organization Address [facility] Phone Number [address] [address] CENTER Hemoglobin A1c (02/13/2018 4:25 AM CANCER RESEARCHER) Hemoglobin A1C 5.6 4.3 - 6.1 % [facility] Specimen Blood - Line, Venous Performing Organization Address [facility] Phone Number [address] [address] CENTER Hemoglobin and hematocrit (02/12/2018 9:33 PM CANCER RESEARCHER)Only the most recent of5 resultswithin the time period is included. Hemoglobin 8.6 (L) 13.7 - 17.5 GM/DL [facility] Hematocrit 28.0 (L) 40.1 - 51.0 % [facility] Specimen Blood Performing Organization Address City/State/Zipcode Phone Number [facility] [address] [place], [place] [phone] [place] RPR (02/12/2018 9:33 PM CANCER RESEARCHER) RPR Nonreactive Nonreactive [facility] Specimen Blood Performing Organization Address City/[facility]/Zipcode Phone Number [address] [phone] [place] Lipid panel (02/12/2018 9:33 PM CANCER RESEARCHER) Triglycerides 126 mg/dL [facility] Cholesterol 166 mg/dL [facility] HDL 31 mg/dL [facility] LDL Calculated 110 mg/dL [facility] Specimen Blood Narrative Performed At Triglyceride Reference Range: [facility] Low Risk <150 [id number] High Risk 200-499 Very High Risk>=500 Cholesterol Reference Range: Low Risk <200 [id number] High Risk>240 HDL Cholesterol Reference Range: Low Risk >=60 High Risk <40 LDL Cholesterol Reference Range: Optimal<100 Near Pcasysy833-525 Basbsugvpj327-120 Vhnj073-559 Very High >=190 Performing Organization Address City/[facility] Cent[facility] Phone Number [facility] [address] [place] [phone] [place] CTA carotid (02/12/2018 5:59 PM CANCER RESEARCHER) Narrative Performed At FINAL REPORT [facility] CTA carotids and brain 02/12/2018 6:10 PM CLINICAL INDICATION: Stroke COMPARISON: None available TECHNIQUE: Noncontrast axial CT images of the head were obtained. Subsequently, axial CT angiographic images of the upper chest, neck, and head were obtained, from which three-dimensional reconstructed images were created. Additional imaging series were created on an independent workstation using maximum intensity projection and volume rendered technique. This examination was performed according to our departmental dose optimization program, which includes automated exposure control, adjustment of the mA and/or kV according to patient size, and/or use of iterated reconstruction technique. FINDINGS: There is no intracranial hemorrhage, mass, hydrocephalus, extra-axial collection, or midline shift. There are small infarcts in the cerebellum. There is mild microvascular ischemia in the supratentorial white matter, with a lacunar infarct in the left caudate nucleus. There is no vessel occlusion in the intracranial or extracranial arterial vasculature. There is no NASCET quantifiable cervical internal carotid artery stenosis. There is no remarkable stenosis elsewhere in the intracranial or extracranial arterial vasculature. There are bilateral small volume pleural effusions with adjacent basilar atelectasis. The remaining visualized soft tissue and skeleton are without worrisome finding. IMPRESSION: 1. No intracranial hemorrhage or mass effect. 2. Ischemic changes, which can be definitively characterized with MRI if clinically indicated. 3. Unremarkable intracranial and extracranial CTAs. 4. Bilateral small volume pleural effusions. Signed: Brayden Mg MD Report Verified Date/Time:02/12/2018 18:19:07 Reading Location: [facility] Radiology Reading Room Procedure Note Interface, External Ris In - 02/12/2018 6:21 PM CANCER RESEARCHER FINAL REPORT CTA carotids and brain 02/12/2018 6:10 PM CLINICAL INDICATION: Stroke COMPARISON: None available TECHNIQUE: Noncontrast axial CT images of the head were obtained. Subsequently, axial CT angiographic images of the upper chest, neck, and head were obtained, from which three-dimensional reconstructed images were created. Additional imaging series were created on an independent workstation using maximum intensity projection and volume rendered technique. This examination was performed according to our departmental dose optimization program, which includes automated exposure control, adjustment of the mA and/or kV according to patient size, and/or use of iterated reconstruction technique. FINDINGS: There is no intracranial hemorrhage, mass, hydrocephalus, extra-axial collection, or midline shift. There are small infarcts in the cerebellum. There is mild microvascular ischemia in the supratentorial white matter, with a lacunar infarct in the left caudate nucleus. There is no vessel occlusion in the intracranial or extracranial arterial vasculature. There is no NASCET quantifiable cervical internal carotid artery stenosis. There is no remarkable stenosis elsewhere in the intracranial or extracranial arterial vasculature. There are bilateral small volume pleural effusions with adjacent basilar atelectasis. The remaining visualized soft tissue and skeleton are without worrisome finding. IMPRESSION: 1. No intracranial hemorrhage or mass effect. 2. Ischemic changes, which can be definitively characterized with MRI if clinically indicated. 3. Unremarkable intracranial and extracranial CTAs. 4. Bilateral small volume pleural effusions. Signed: Brayden Mg MD Report Verified Date/Time: 02/12/2018 18:19:07 Reading Location: [facility] Radiology Reading Room Performing Organization Address City/State/Zipcode Phone Number [employer] RIS CTA brain (02/12/2018 5:59 PM CANCER RESEARCHER) Narrative Performed At FINAL REPORT [employer] RIS CTA carotids and brain 02/12/2018 6:10 PM CLINICAL INDICATION: Stroke COMPARISON: None available TECHNIQUE: Noncontrast axial CT images of the head were obtained. Subsequently, axial CT angiographic images of the upper chest, neck, and head were obtained, from which three-dimensional reconstructed images were created. Additional imaging series were created on an independent workstation using maximum intensity projection and volume rendered technique. This examination was performed according to our departmental dose optimization program, which includes automated exposure control, adjustment of the mA and/or kV according to patient size, and/or use of iterated reconstruction technique. FINDINGS: There is no intracranial hemorrhage, mass, hydrocephalus, extra-axial collection, or midline shift. There are small infarcts in the cerebellum. There is mild microvascular ischemia in the supratentorial white matter, with a lacunar infarct in the left caudate nucleus. There is no vessel occlusion in the intracranial or extracranial arterial vasculature. There is no NASCET quantifiable cervical internal carotid artery stenosis. There is no remarkable stenosis elsewhere in the intracranial or extracranial arterial vasculature. There are bilateral small volume pleural effusions with adjacent basilar atelectasis. The remaining visualized soft tissue and skeleton are without worrisome finding. IMPRESSION: 1. No intracranial hemorrhage or mass effect. 2. Ischemic changes, which can be definitively characterized with MRI if clinically indicated. 3. Unremarkable intracranial and extracranial CTAs. 4. Bilateral small volume pleural effusions. Signed: Brayden Mg MD Report Verified Date/Time:02/12/2018 18:19:07 Reading Location: [facility] Radiology Reading Room Procedure Note Interface, External Ris In - 02/19/2018 10:09 PM CANCER RESEARCHER FINAL REPORT CTA carotids and brain 02/12/2018 6:10 PM CLINICAL INDICATION: Stroke COMPARISON: None available TECHNIQUE: Noncontrast axial CT images of the head were obtained. Subsequently, axial CT angiographic images of the upper chest, neck, and head were obtained, from which three-dimensional reconstructed images were created. Additional imaging series were created on an independent workstation using maximum intensity projection and volume rendered technique. This examination was performed according to our departmental dose optimization program, which includes automated exposure control, adjustment of the mA and/or kV according to patient size, and/or use of iterated reconstruction technique. FINDINGS: There is no intracranial hemorrhage, mass, hydrocephalus, extra-axial collection, or midline shift. There are small infarcts in the cerebellum. There is mild microvascular ischemia in the supratentorial white matter, with a lacunar infarct in the left caudate nucleus. There is no vessel occlusion in the intracranial or extracranial arterial vasculature. There is no NASCET quantifiable cervical internal carotid artery stenosis. There is no remarkable stenosis elsewhere in the intracranial or extracranial arterial vasculature. There are bilateral small volume pleural effusions with adjacent basilar atelectasis. The remaining visualized soft tissue and skeleton are without worrisome finding. IMPRESSION: 1. No intracranial hemorrhage or mass effect. 2. Ischemic changes, which can be definitively characterized with MRI if clinically indicated. 3. Unremarkable intracranial and extracranial CTAs. 4. Bilateral small volume pleural effusions. Signed: Brayden Mg MD Report Verified Date/Time: 02/12/2018 18:19:07 Reading Location: [facility] Radiology Reading Room Performing Organization Address City/State/Zipcode Phone Number [employer] TRANSFUSION SERVICE REPORT - SCAN (02/12/2018 5:52 PM CANCER RESEARCHER) Narrative Performed At ECHOCARDIOGRAM REPORT - SCAN (02/12/2018 5:50 PM CANCER RESEARCHER) Narrative Performed At 2D Echo W/Doppler(CW/PW/Color) (02/12/2018 1:31 PM CANCER RESEARCHER) Ejection Fraction [facility]arrative Performed At Transthoracic Echocardiography Report (TTE) [facility] Demographics Patient Srinivasan Espitia of Study02/12/2018 SANTHOSH Male Visit [id number] Unknown Room [id number] Number Date of 1950Referring Janes AUSTIN Age 67 year(s)[employer] Azam Da Silva Administration [facility] Interpreting Baldev Bennett MD Physician Procedure Type of Study TTE procedure:2DECHO W DOPPLER(CW/PW/COLOR) (STAT) Indications:Acute Chest Pain/ Suspected CAD. Clinical History HGB 9.2 HCT 29.2 % HLD HTN (AVR [facility] [id number]) Height: 72 inches Weight: 87.54 kg (193 lbs) BSA: 2.1 m^2 BMI: 26.18 kg/m^2 HR: 67 bpm BP: 125/69 mmHg Summary 1. Normal LV size and function. LVEF is 55-60% 2. Diastology: Grade 2 diastolic dysfunction 3. Normal RV size and function 4. S/p AVR. Pk / Mn: DI 0.43 5. Mild TR. Estimated PASP is 30-35 mm Hg 6. No pericardial effusion noted. Previous Study No previous echo is available for comparison Signature Findings Technical Quality: Technically adequate exam. Left Ventricle Normal left ventricular chamber size. Normal wall th ickness. Normal overall left ventricular systolic fu nction. No apparent segmental wall motion ab normalities. Estimated LVEF by qualitative as sessment is normal (55-60%) . Normal diastolic fu nction. Left AtriumLA size is normal . Right VentricleNormal right ventricle structure and function. Right Atrium Normal right atrium. Aortic Valve A mechanical AoV prosthesis is visualized . Th e prosthetic AoV appears well-seated with normal fu nction by Doppler. Ao V dimensionless obstructive index (DOI)) is 0.43 . Tr sebas aortic regurgitation Mitral Valve Mild MV leaflet thickening. Mild mitral re gurgitation. Tricuspid ValveMild tricuspid regurgitation. Es timated peak systolic PA pressure is 30-35 mmHg . Pulmonic Valve Normal PV structure and function by limited views an d Doppler. AortaAortic root size (SInus of Valsalva diameter) is no rmal . PericardiumNo pericardial effusion is visualized. IVC/SVC/PA/PV/PleuralThe estimated RA pressure by IVC dynamics 0-5mmHg . Chambers/Structures Left Atrium LA Dimension: 3.73 cm LA Area: 21.5 cm^2 LA Volume: 64.01 ml LA Vol. Index: 30 ml/m^2 Left Ventricle LVIDd: 5.08 cm LV Septum Diastolic: 1.1 cm LV PW Diastolic: 1.1 cm LVEDV Austin's:149.03 ml LVESV Austin's:60.96 ml LVEF Austin's: 59.1 % LVEDVI: 71 ml/m^2 LVESVI: 29 ml/m^2 Aorta Ao Root S of Joselyn.: 3.77 cm Doppler/Quantitative Measurements Mitral Valve MV Peak E-Wave: 0.84 m/sMV Peak A-Wave: 0.64 m/s E/A Ratio: 1.31 Peak Gradient: 2.79 mmHg Deceleration Time: 205.3 msec MV Kwame. Peak: Tissue Doppler E' Lateral Velocity: 0.14 m/s A' Lateral Velocity: 0.11 m/s E/E': 5.99 Aortic Valve Peak Velocity: 2.68 m/s Mean Velocity: 1.72 m/s Peak Gradient: 28.7 mmHgMean Gradient: 14.17 mmHg AV VTI: 51.86 cm AV DVI: 0.43 LVOT Peak Velocity: 1.1 m/sPeak Gradient: 4.81 mmHg Mean Velocity: 0.64 m/s Mean Gradient: 2.07 mmHg LVOT VTI: 22.39 cm Procedure Note Interface, External Ris In - 02/12/2018 5:10 PM CANCER RESEARCHER Transthoracic Echocardiography Report (TTE) Demographics Patient Name SEVEN DIAZ Date of Study 02/12/2018 RAY Gender Male Visit Number [id number] Race Unknown Room Number [id number] Number Date of 1950 Referring Physician NAKIA AUSTIN Age 67 year(s) [employer] Azam Da Silva [facility] Inter[employer] Baldev Bennett MD Physician Procedure Type of Study TTE procedure:2DECHO W DOPPLER(CW/PW/COLOR) (STAT) Indications:Acute Chest Pain/ Suspected CAD. Clinical History HGB 9.2 HCT 29.2 % HLD HTN (AVR [facility] [id number]) Height: 72 inches Weight: 87.54 kg (193 lbs) BSA: 2.1 m^2 BMI: 26.18 kg/m^2 HR: 67 bpm BP: 125/69 mmHg Summary 1. Normal LV size and function. LVEF is 55-60% 2. Diastology: Grade 2 diastolic dysfunction 3. Normal RV size and function 4. S/p AVR. Pk / Mn: DI 0.43 5. Mild TR. Estimated PASP is 30-35 mm Hg 6. No pericardial effusion noted. Previous Study No previous echo is available for comparison Signature Findings Technical Quality: Technically adequate exam. Left Ventricle Normal left ventricular chamber size. Normal wall thickness. Normal overall left ventricular systolic function. No apparent segmental wall motion abnormalities. Estimated LVEF by qualitative assessment is normal (55-60%) . Normal diastolic function. Left Atrium LA size is normal . Right Ventricle Normal right ventricle structure and function. Right Atrium Normal right atrium. Aortic Valve A mechanical AoV prosthesis is visualized . The prosthetic AoV appears well-seated with normal function by Doppler. AoV dimensionless obstructive index (DOI)) is 0.43 . Trace aortic regurgitation Mitral Valve Mild MV leaflet thickening. Mild mitral regurgitation. Tricuspid Valve Mild tricuspid regurgitation. Estimated peak systolic PA pressure is 30-35 mmHg . Pulmonic Valve Normal PV structure and function by limited views and Doppler. Aorta Aortic root size (SInus of Valsalva diameter) is normal . Pericardium No pericardial effusion is visualized. IVC/SVC/PA/PV/Pleural The estimated RA pressure by IVC dynamics 0-5mmHg . Chambers/Structures Left Atrium LA Dimension: 3.73 cm LA Area: 21.5 cm^2 LA Volume: 64.01 ml LA Vol. Index: 30 ml/m^2 Left Ventricle LVIDd: 5.08 cm LV Septum Diastolic: 1.1 cm LV PW Diastolic: 1.1 cm LVEDV Austin's:149.03 ml LVESV Austin's:60.96 ml LVEF Austin's: 59.1 % LVEDVI: 71 ml/m^2 LVESVI: 29 ml/m^2 Aorta Ao Root S of Joselyn.: 3.77 cm Doppler/Quantitative Measurements Mitral Valve MV Peak E-Wave: 0.84 m/s MV Peak A-Wave: 0.64 m/s E/A Ratio: 1.31 Peak Gradient: 2.79 mmHg Deceleration Time: 205.3 msec MV Kwame. Peak: Tissue Doppler E' Lateral Velocity: 0.14 m/s A' Lateral Velocity: 0.11 m/s E/E': 5.99 Aortic Valve Peak Velocity: 2.68 m/s Mean Velocity: 1.72 m/s Peak Gradient: 28.7 mmHg Mean Gradient: 14.17 mmHg AV VTI: 51.86 cm AV DVI: 0.43 LVOT Peak Velocity: 1.1 m/s Peak Gradient: 4.81 mmHg Mean Velocity: 0.64 m/s Mean Gradient: 2.07 mmHg LVOT VTI: 22.39 cm Performing Organization Address City/State/Zipcode Phone Number [facility] brain/stroke test design (02/12/2018 12:18 PM CANCER RESEARCHER) Narrative Performed At FINAL REPORT [facility] CT head without contrast INDICATION: Ataxia, dysmetria TECHNIQUE: Axial noncontrast CT images through the head were obtained. Imaging was performed within 24 hours of arrival at the facility. This exam was performed according to our departmental dose optimization program which includes automated exposure control, adjustment of the mA and/or kV according to patient size and/or use of iterative reconstruction technique. COMPARISON: None available FINDINGS: There is no acute intracranial hemorrhage or mass effect. A small right cerebellar chronic appearing infarct is present. Microvascular ischemia is present, including age indeterminate changes in the joellen. Please note that CT is insensitive for early or small infarcts. There is generalized parenchymal volume loss without hydrocephalus or midline shift. There is polypoid sinus mucosal disease and suspected left nasal polyp protruding into the nasal passage. The mastoid air cells and orbits are unremarkable. The calvarium is intact. IMPRESSION: No acute intracranial hemorrhage or mass effect. Small chronic appearing right cerebellar infarct. Chronic and age indeterminate microvascular ischemia, including in the joellen, for which further characterization with MRI can be obtained if there is no contraindication. Findings discussed with stroke neurology housestaff at 12:20 PM Signed: Justin Hamilton MD Report Verified Date/Time:02/12/2018 12:24:12 Reading Location: [facility] Radiology Reading Room Procedure Note Interface, External Ris In - 02/12/2018 12:26 PM CANCER RESEARCHER FINAL REPORT CT head without contrast INDICATION: Ataxia, dysmetria TECHNIQUE: Axial noncontrast CT images through the head were obtained. Imaging was performed within 24 hours of arrival at the facility. This exam was performed according to our departmental dose optimization program which includes automated exposure control, adjustment of the mA and/or kV according to patient size and/or use of iterative reconstruction technique. COMPARISON: None available FINDINGS: There is no acute intracranial hemorrhage or mass effect. A small right cerebellar chronic appearing infarct is present. Microvascular ischemia is present, including age indeterminate changes in the joellen. Please note that CT is insensitive for early or small infarcts. There is generalized parenchymal volume loss without hydrocephalus or midline shift. There is polypoid sinus mucosal disease and suspected left nasal polyp protruding into the nasal passage. The mastoid air cells and orbits are unremarkable. The calvarium is intact. IMPRESSION: No acute intracranial hemorrhage or mass effect. Small chronic appearing right cerebellar infarct. Chronic and age indeterminate microvascular ischemia, including in the joellen, for which further characterization with MRI can be obtained if there is no contraindication. Findings discussed with stroke neurology housestaff at 12:20 PM Signed: Justin Hamilton MD Report Verified Date/Time: 02/12/2018 12:24:12 Reading Location: [facility] Radiology Reading Room Performing Organization Address City/[facility] Cent[facility] Phone Number [employer] POC-Glucose meter (02/12/2018 11:58 AM CANCER RESEARCHER)Only the most recent of3 resultswithin the time period is included. POC-Glucose Meter 118 (H)Comment: TESTED AT 70 - 110 mg/dL [facility] [address] [place] [id number] Specimen Blood Performing Organization Address [facility] Phone Number [address] [address] [phone] CENTER Type and screen, automated (02/11/2018 1:51 PM CANCER RESEARCHER) ABO/RH AUTOMATED (BEAKER) O POSITIVE [facility] Ab Scrn NEGATIVE [facility] Specimen Blood Performing Organization Address [facility] Phone Number [address] [address] [phone] REPORT OF PROCEDURE - ENDOSCOPY URL (02/11/2018 1:50 PM CANCER RESEARCHER) Narrative Performed At XR chest 1 view portable / bedside (02/11/2018 6:45 AM CANCER RESEARCHER) Narrative Performed At FINAL REPORT [facility] RAD, CHEST, 1 VIEW, NON DEPT INDICATION: hypoxia; eval for perforated viscus COMPARISON: None FINDINGS: Portable frontal view of the chest. IMPRESSION: Support Lines: None. Lungs and pleura: Basilar subsegmental atelectasis and trace effusions. Presuming upright positioning, no visible subdiaphragmatic gas. No pneumothorax. Heart and mediastinum: Prominent cardiac silhouette. Sternotomy wires are intact. Additional findings: None. Signed: JR Muñoz Robert MD Report Verified Date/Time:02/11/2018 07:19:35 Reading Location: [address] Neuro Reading Room Procedure Note Interface, External Ris In - 02/11/2018 7:21 AM CANCER RESEARCHER FINAL REPORT RAD, CHEST, 1 VIEW, NON DEPT INDICATION: hypoxia; eval for perforated viscus COMPARISON: None FINDINGS: Portable frontal view of the chest. IMPRESSION: Support Lines: None. Lungs and pleura: Basilar subsegmental atelectasis and trace effusions. Presuming upright positioning, no visible subdiaphragmatic gas. No pneumothorax. Heart and mediastinum: Prominent cardiac silhouette. Sternotomy wires are intact. Additional findings: None. Signed: JR Muñoz Robert MD Report Verified Date/Time: 02/11/2018 07:19:35 Reading Location: [address] Neuro Reading Room Performing Organization Address City/State/Zipcode Phone Number [facility] CBC with platelet count + automated diff (02/11/2018 5:21 AM CANCER RESEARCHER) WBC 8.6 3.5 - 10.5 K/L [facility] RBC 3.01 (L) 4.63 - 6.08 M/L [facility] Hemoglobin 9.2 (L) 13.7 - 17.5 GM/DL [facility] Hematocrit 29.2 (L) 40.1 - 51.0 % [facility] MCV 97.0 (H) 79.0 - 92.2 fL [facility] MCH 30.6 25.7 - 32.2 pg [facility] MCHC 31.5 (L) 32.3 - 36.5 GM/DL [facility] RDW 17.2 (H) 11.6 - 14.4 % [facility] Platelets 267 150 - 450 K/CU MM [facility] MPV 9.9 9.4 - 12.4 fL [facility] nRBC 0 0 - 0 /100 WBC [facility] % Neutros 51 % [facility] % Lymphs 39 % [facility] % Monos 6 % [facility] % Eos 0 % [facility] % Baso 1 % [facility] # Neutros 4.42 1.78 - 5.38 K/L [facility] # Lymphs 3.37 1.32 - 3.57 K/L [facility] # Monos 0.49 0.30 - 0.82 K/L [facility] # Eos 0.02 (L) 0.04 - 0.54 K/L [facility] # Baso 0.04 0.01 - 0.08 K/L [facility] Immature Granulocytes-Relative 3 (H) 0 - 1 % [facility] Specimen Blood Performing Organization Address City/State/Zipcode Phone Number [facility] [address] [place] [address] [phone] CENTER Lamotrigine level (02/11/2018 5:21 AM CANCER RESEARCHER) Lamotrigine 11.1 4.0 - 18.0 mcg/mL [facility] Comment: INCORPORATED This test was developed and its analytical performance characteristics have been determined by [facility]. It has not been cleared or approved by the US Food and Drug Administration. This assay has been validated pursuant to the CLIA regulations and is used for clinical purposes. Specimen Blood Narrative Performed At Performing Lab [facility] *[facility]PL [facility], [address] [place] [address] Xiomara King MD, PhD Performing Organization Address City/State/Zipcode Phone Number [facility], [place] [address] INCORPOR[facility] [id number] [facility] Phosphorus (02/11/2018 5:21 AM CANCER RESEARCHER) Phosphorus 3.3 2.3 - 4.7 mg/dL [facility] Specimen Blood Performing Organization Address City/[facility] Centercode Phone Number [address] [address] CENTER Magnesium (02/11/2018 5:21 AM CANCER RESEARCHER) Magnesium 1.8 1.6 - 2.6 mg/dL [facility] Specimen Blood Performing Organization Address [facility] Phone Number [address] [address] [place] Comprehensive metabolic panel (02/11/2018 5:21 AM CANCER RESEARCHER) Protein, Total 6.2 6.0 - 8.3 gm/dL [facility] Albumin 3.1 (L) 3.5 - 5.0 g/dL [facility] Alkaline Phosphatase 65 40 - 150 U/L [facility] Total Bilirubin 1.1 0.2 - 1.2 mg/dL [facility] Sodium 139 136 - 145 meq/L [facility] Potassium 4.3 3.5 - 5.1 meq/L [facility] Chloride 105 98 - 107 meq/L [facility] CO2 28 22 - 29 meq/L [facility] BUN 3 (L) 7 - 21 mg/dL [facility] Creatinine 0.73 0.57 - 1.25 mg/dL [facility] Glucose 124 (H) 70 - 105 mg/dL [facility] Calcium 8.8 8.4 - 10.2 mg/dL [facility] AST 27 5 - 34 U/L [facility] ALT 17 6 - 55 U/L [facility] EGFR Comment: INSUFFICIENT mL/min/1.73 sq m [facility] CLINICAL DATA TO [facility] CALCULATE ESTIMATED GFR. Specimen Blood Performing Organization Address City/State/Zipcode Phone Number [facility] [address] [place] [address] CENTER after 03/16/2017 Insurance Payer Benefit Plan / Subscriber ID Type Phone Address Group [employer] - [employer] MEDICARE xxxxxxxx [facility] Contracted [phone] [address] MEDICARE MGD HMO POS [id number] [place] [address] Advance Directives For more information, please contact:[address] [phone] Code Status Date Activated Date Inactivated Comments Full Code 02/11/2018 3:59 AM This code status was determined by: Patient
--- OUTSIDE RECORDS SUMMARY | 2018-03-17 08:58 | XMS REPORT ---
:1950 [facility] [address] [place] [address] Dr. Martin [address] [place] [id number] Care Team Providers Name Role Phone AYAN STORY Unavailable Unavailable Problems This patient has no known problems. Allergies, Adverse Reactions, Alerts This patient has no known allergies or adverse reactions. Medications This patient has no known medications. Results Test Description Test Time Test Comments Text Results Atomic Results Result Comments BLOOD CULTURE 2018-02-19 17:01:00 Test Item Value Reference Range Comments CULTURE (BEAKER) (test adxw=3620) No growth in 5 days BLOOD [id number] 17:01:00 Test Item Value Reference Range Comments CULTURE (BEAKER) (test kdsu=0791) No growth in 5 days [id number] 07:54:00 Test Item Value Reference Range Comments PARTIAL THROMBOPLASTIN TIME (BEAKER) (test 97.6 seconds 22.5-36.0 jcdp=639) While on warfarin.PROTHROMBIN TIME/[id number] 07:52:00 Test Item Value Reference Range Comments PROTIME (BEAKER) (test iltm=472) 24.2 seconds 11.7-14.7 INR (BEAKER) (test dkez=973) 2.2 <=5.9 RECOMMENDED COUMADIN/WARFARIN INR THERAPY RANGESSTANDARD DOSE: 2.0 - 3.0 Includes: PROPHYLAXIS forvenous thrombosis, systemic embolization; TREATMENT for venous thrombosis and/or pulmonary embolus.HIGH RISK: Target INR is 2.5-3.5 for patients with mechanical heart valves.While on warfarin.CBC (HEMOGRAM ONLY) 2018-02-16 07:37:00 Test Item Value Reference Range Comments WHITE BLOOD CELL COUNT (BEAKER) (test peyf=976) 7.6 K/ L 3.5-10.5 RED BLOOD CELL COUNT (BEAKER) (test zgwm=238) 2.74 M/ L 4.63-6.08 HEMOGLOBIN (BEAKER) (test nsfh=533) 8.6 GM/DL 13.7-17.5 HEMATOCRIT (BEAKER) (test tzdu=004) 27.5 % 40.1-51.0 MEAN CORPUSCULAR VOLUME (BEAKER) (test jorm=702) 100.4 fL 79.0-92.2 MEAN CORPUSCULAR HEMOGLOBIN (BEAKER) (test 31.4 pg 25.7-32.2 qsqg=907) MEAN CORPUSCULAR HEMOGLOBIN CONC (BEAKER) (test 31.3 GM/DL 32.3-36.5 xwxp=417) RED CELL DISTRIBUTION WIDTH (BEAKER) (test 19.2 % 11.6-14.4 xpnc=947) PLATELET COUNT (BEAKER) (test xfil=602) 284 K/CU MM 150-450 MEAN PLATELET VOLUME (BEAKER) (test fdtu=360) 10.1 fL 9.4-12.4 NUCLEATED RED BLOOD CELLS (BEAKER) (test 0 /100 WBC 0-0 nfmr=313) BASIC METABOLIC [id number] 07:29:00 Test Item Value Reference Range Comments SODIUM (BEAKER) (test 138 meq/L 136-145 fmbo=339) POTASSIUM (BEAKER) (test 3.6 meq/L 3.5-5.1 ltns=557) CHLORIDE (BEAKER) (test 108 meq/L 98-107 rorj=625) CO2 (BEAKER) (test 26 meq/L 22-29 etfg=324) BLOOD UREA NITROGEN 6 mg/dL 7-21 (BEAKER) (test kpdb=186) CREATININE (BEAKER) (test 0.77 mg/dL 0.57-1.25 nsdn=111) GLUCOSE RANDOM (BEAKER) 94 mg/dL 70-105 (test pxac=859) CALCIUM (BEAKER) (test 8.6 mg/dL 8.4-10.2 pgcl=867) EGFR (BEAKER) (test mL/min/1.73 sq m INSUFFICIENT CLINICAL DATA thmf=3536) TO CALCULATE ESTIMATED GFR. VANCOMYCIN LEVEL, [id number] 23:50:00 Test Item Value Reference Range Comments VANCOMYCIN TROUGH (BEAKER) (test wohy=873) 15.4 ug/mL 10.0-20.0 EEG MONITORING WITH VIDEO RECORDING EACH 24 [id number] 15:03:00Date(s) of EE02/14/18; 02/15/18 DATE OF REPORT: 02/15/18 ACC: [id number] EEG Number: [id number] Test Location: Floor 2431 Start time: 02/14/18 at 1711 Stop time: 02/15/18 at 1403 ICD-10: [id number] CPT Code: R41.82 HISTORY: 67 year old [...] IMPRESSION: Normal Awake and Sleep EEG CLINICAL CORRELATION : An EEG without epileptiform discharges does not exclude the possibility of epilepsy. It the clinical suspicion of epilepsy remains, consider additional EEG recordings. Oleksandr Wiseman MD Neurophysiology Fellow Jackson Mosley MD PhD Attending Neurophysiologist [facility] Electronically signed by: JACKSON MOSLEY MD on 2017 03:03 [id number] 07:57:00 Test Item Value Reference Range Comments PARTIAL THROMBOPLASTIN TIME (BEAKER) (test 79.9 seconds 22.5-36.0 apxe=413) BASIC METABOLIC [id number] 05:44:00 Test Item Value Reference Range Comments SODIUM (BEAKER) (test 137 meq/L 136-145 rrld=168) POTASSIUM (BEAKER) (test 3.5 meq/L 3.5-5.1 lkbq=042) CHLORIDE (BEAKER) (test 107 meq/L 98-107 czli=390) CO2 (BEAKER) (test 25 meq/L 22-29 xayg=018) BLOOD UREA NITROGEN 8 mg/dL 7-21 (BEAKER) (test kudk=775) CREATININE (BEAKER) (test 0.76 mg/dL 0.57-1.25 qsrx=674) GLUCOSE RANDOM (BEAKER) 105 mg/dL 70-105 (test visb=832) CALCIUM (BEAKER) (test 8.6 mg/dL 8.4-10.2 txby=141) EGFR (BEAKER) (test mL/min/1.73 sq m INSUFFICIENT CLINICAL DATA tebn=9037) TO CALCULATE ESTIMATED GFR. PROTHROMBIN [id number] 05:16:00 Test Item Value Reference Range Comments PROTIME (BEAKER) (test qttr=593) 22.4 seconds 11.7-14.7 INR (BEAKER) (test tvhq=113) 2.0 <=5.9 RECOMMENDED COUMADIN/WARFARIN INR THERAPY RANGESSTANDARD DOSE: 2.0 - 3.0 Includes: PROPHYLAXIS forvenous thrombosis, systemic embolization; TREATMENT for venous thrombosis and/or pulmonary embolus.HIGH RISK: Target INR is 2.5-3.5 for patients with mechanical heart valves.While on warfarin.CBC (HEMOGRAM ONLY) 2018-02-15 05:06:00 Test Item Value Reference Range Comments WHITE BLOOD CELL COUNT (BEAKER) (test dkdf=342) 8.6 K/ L 3.5-10.5 RED BLOOD CELL COUNT (BEAKER) (test etny=210) 2.71 M/ L 4.63-6.08 HEMOGLOBIN (BEAKER) (test htvw=450) 8.4 GM/DL 13.7-17.5 HEMATOCRIT (BEAKER) (test yfzn=572) 26.7 % 40.1-51.0 MEAN CORPUSCULAR VOLUME (BEAKER) (test ydtm=907) 98.5 fL 79.0-92.2 MEAN CORPUSCULAR HEMOGLOBIN (BEAKER) (test 31.0 pg 25.7-32.2 zovs=833) MEAN CORPUSCULAR HEMOGLOBIN CONC (BEAKER) (test 31.5 GM/DL 32.3-36.5 jfdh=370) RED CELL DISTRIBUTION WIDTH (BEAKER) (test 18.6 % 11.6-14.4 ooqg=649) PLATELET COUNT (BEAKER) (test tgob=803) 260 K/CU MM 150-450 MEAN PLATELET VOLUME (BEAKER) (test mbwx=670) 9.7 fL 9.4-12.4 NUCLEATED RED BLOOD CELLS (BEAKER) (test 0 /100 WBC 0-0 nifm=608) [id number] 02:06:00 Test Item Value Reference Range Comments PARTIAL THROMBOPLASTIN TIME (BEAKER) (test 74.3 seconds 22.5-36.0 nsug=404) RAD, ABDOMEN/KUB, 1 VIEW [id number] 21:56:00Reason for exam:-> constipationFINAL REPORT CLINICAL HISTORY: constipation TECHNIQUE: RAD, ABDOMEN/KUB, 1 VIEW AP COMPARISON: Pain radiograph of the abdomen dated 02/11/2018. Impression: Moderate stool burden throughout the large bowel with nonspecific bowel gas pattern. Unchanged 1.2 cm calcification over the right upper quadrant favored to represent cholelithiasis. Additional 6 mm calcification in the leftupper quadrant is superior to the left renal shadow , possibly vascular versus contents in the fecal stream. Multiple metallic punctate densities overlie the left lower quadrant and pelvis. Normal osseous structures. Signed: Hernando [facility] Verified Date/Time: 2017 21:56:57 ReadingLocation: [facility] B1 C013T Transitional Reading Room EEG AWAKE AND [id number] 20:02:00Reason for exam:->episodes of fluctuating mentationReason for exam:->Please perform a continous studyDate(s) of EE DATE OF REPORT: 02/14/18 ACC: [id number] EEG Number: [id number] Test Location : Inpatient ICU Start time: 1645 Stop time: 1949 ICD-10: [id number] CPT Code: G40.909 HISTORY: 67 year old [...] to eye opening and well regulated. More anteriorly , low voltage frontocentral beta predominated. Drowsiness was characterized by alpha attenuation and increased frontocentral theta, vertex sharp transients. Stage 2 sleep was reached characterized by symmetricsleep spindles. SIGNIFICANT VIDEO EVENTS: None SIGNIFICANT ELECTROCARDIOGRAM EVENTS: None HV :Hyperventilation was not performed. PHOTIC STIMULATION: Photic stimulation was done from 1-33 Hz; no photic driving was seen; photoparoxysmal responses were absent. IMPRESSION: Normal Awake andSleep EEG CLINICAL CORRELATION: An EEG without epileptiform discharges does not exclude the possibility of epilepsy. It the clinical suspicion of epilepsy remains, consider additional EEG recordings. Joseluis Powell MD Neurophysiology Fellow Jagruti Garland Attending Neurophysiologist [facility] [id number] 19:17:00 Test Item Value Reference Range Comments PARTIAL THROMBOPLASTIN TIME (BEAKER) (test 57.2 seconds 22.5-36.0 zbwb=978) URINALYSIS W/ REFLEX URINE [id number] 17:40:00 Test Item Value Reference Range Comments COLOR (BEAKER) (test gkjc=668) Yellow CLARITY (BEAKER) (test duiq=299) Clear SPECIFIC GRAVITY UA (BEAKER) (test ityt=117) 1.016 1.001-1.035 PH UA (BEAKER) (test afvx=410) 7.5 5.0-8.0 PROTEIN UA (BEAKER) (test anwv=736) 30 mg/dL Negative GLUCOSE UA (BEAKER) (test uiov=805) Negative Negative KETONES UA (BEAKER) (test asvp=107) Negative Negative BILIRUBIN UA (BEAKER) (test vadv=462) Negative Negative BLOOD UA (BEAKER) (test uhvg=228) Negative Negative NITRITE UA (BEAKER) (test rnim=911) Negative Negative LEUKOCYTE ESTERASE UA (BEAKER) (test bgxr=492) Negative Negative UROBILINOGEN UA (BEAKER) (test fxhs=599) 3.0 mg/dL 0.2-1.0 RBC UA (BEAKER) (test qcyl=948) < /HPF WBC UA (BEAKER) (test ekib=357) 1 /HPF MUCUS (BEAKER) (test ftae=4805) Occasional SQUAMOUS EPITHELIAL (BEAKER) (test bnwh=070) < /HPF SOURCE(BEAKER) (test zaua=2135) MR, BRAIN, WITHOUT [id number] 12:31:00Has mechanical AV, uncertain if patient can get MRI or not.FINAL REPORT MRI brain without contrast 02/14/2018 12:28 [...] changes. No acute intracranial abnormality. Signed: Brayden Walker Verified Date/ Time: 02/14/2018 12:31:11 Reading Location: [address] Neuro Reading Room [id number] 10:56:00 Test Item Value Reference Range Comments PARTIAL THROMBOPLASTIN TIME (BEAKER) (test 69.2 seconds 22.5-36.0 qhvk=265) BASIC METABOLIC [id number] 04:48:00 Test Item Value Reference Range Comments SODIUM (BEAKER) (test 139 meq/L 136-145 hskr=518) POTASSIUM (BEAKER) (test 3.5 meq/L 3.5-5.1 gwak=402) CHLORIDE (BEAKER) (test 106 meq/L 98-107 coqx=319) CO2 (BEAKER) (test 27 meq/L 22-29 cixu=579) BLOOD UREA NITROGEN 6 mg/dL 7-21 (BEAKER) (test qrtl=258) CREATININE (BEAKER) (test 0.78 mg/dL 0.57-1.25 ilkd=497) GLUCOSE RANDOM (BEAKER) 104 mg/dL 70-105 (test exnj=734) CALCIUM (BEAKER) (test 8.6 mg/dL 8.4-10.2 qshr=859) EGFR (BEAKER) (test mL/min/1.73 sq m INSUFFICIENT CLINICAL DATA rpok=7284) TO CALCULATE ESTIMATED GFR. [id number] 04:44:00 Test Item Value Reference Range Comments PARTIAL THROMBOPLASTIN TIME (BEAKER) (test 105.1 seconds 22.5-36.0 tazc=169) While on warfarin.PROTHROMBIN TIME/[id number] 04:41:00 Test Item Value Reference Range Comments PROTIME (BEAKER) (test tziz=135) 20.9 seconds 11.7-14.7 INR (BEAKER) (test ziyz=373) 1.8 <=5.9 RECOMMENDED COUMADIN/WARFARIN INR THERAPY RANGESSTANDARD DOSE: 2.0 - 3.0 Includes: PROPHYLAXIS forvenous thrombosis, systemic embolization; TREATMENT for venous thrombosis and/or pulmonary embolus.HIGH RISK: Target INR is 2.5-3.5 for patients with mechanical heart valves.While on warfarin.CBC (HEMOGRAM ONLY) 2018-02-14 04:25:00 Test Item Value Reference Range Comments WHITE BLOOD CELL COUNT (BEAKER) (test ewux=923) 7.0 K/ L 3.5-10.5 RED BLOOD CELL COUNT (BEAKER) (test mxfb=766) 2.55 M/ L 4.63-6.08 HEMOGLOBIN (BEAKER) (test llpt=114) 7.8 GM/DL 13.7-17.5 HEMATOCRIT (BEAKER) (test gsgo=847) 25.2 % 40.1-51.0 MEAN CORPUSCULAR VOLUME (BEAKER) (test fcnm=443) 98.8 fL 79.0-92.2 MEAN CORPUSCULAR HEMOGLOBIN (BEAKER) (test 30.6 pg 25.7-32.2 yfsm=254) MEAN CORPUSCULAR HEMOGLOBIN CONC (BEAKER) (test 31.0 GM/DL 32.3-36.5 hxoi=411) RED CELL DISTRIBUTION WIDTH (BEAKER) (test 18.1 % 11.6-14.4 nneh=260) PLATELET COUNT (BEAKER) (test symx=265) 237 K/CU MM 150-450 MEAN PLATELET VOLUME (BEAKER) (test ywyy=767) 9.5 fL 9.4-12.4 NUCLEATED RED BLOOD CELLS (BEAKER) (test 0 /100 WBC 0-0 wqxb=960) [id number] 03:18:00 Test Item Value Reference Range Comments RPR SCREEN (BEAKER) (test iwzr=966) Nonreactive Nonreactive [id number] 18:49:00 Test Item Value Reference Range Comments PARTIAL THROMBOPLASTIN TIME (BEAKER) (test 70.7 seconds 22.5-36.0 blqn=681) CT, BRAIN, WITHOUT [id number] 13:33:00FINAL REPORT CT head without contrast 02/13/2018 1:31 PM CLINICAL HISTORY: Stroke TECHNIQUE: Axial noncontrast CT images through the head were obtained. This examination was performed according to our departmental dose optimization program, which includes automated exposure control, adjustment of the mA and/or kV according to patient size, and/or use of iterated reconstruction technique. COMPARISON: 02/12/2018 FINDINGS: There is no hemorrhage, extra-axial collection , mass, hydrocephalus, or midline shift. There is mild microvascular ischemia in the supratentorial white matterand deep sol nuclei. There are punctate infarcts in the cerebellum. There is generalized parenchymal volume loss. The visualized paranasal sinuses and mastoid air cells are well aerated. The skull isintact. IMPRESSION: No intracranial hemorrhage or mass effect. Mild ischemic changes, which can be definitively characterized with MRI if clinically indicated. Signed: Brayden Walker VerifiedDate/Time: 02/13/2018 13:33 :21 Reading Location: [facility] C013V Neuro Reading Room [id number] 13:28:00 Test Item Value Reference Range Comments PARTIAL THROMBOPLASTIN TIME (BEAKER) (test 69.2 seconds 22.5-36.0 qlwr=557) VITAMIN B12 AND [id number] 09:14:00 Test Item Value Reference Range Comments VITAMIN B12 (BEAKER) (test iema=858) > pg/mL 213-816 FOLATE (BEAKER) (test stcj=808) 4.8 ng/mL >=7.0 T4, [id number] 09:13:00 Test Item Value Reference Range Comments FREE T4 (BEAKER) (test ykyg=019) 0.94 ng/dL 0.70-1.48 TSH/FREE T4 IF [id number] 08:18:00 Test Item Value Reference Range Comments THYROID STIMULATING HORMONE (BEAKER) (test 9.92 uIU/mL 0.35-4.94 jglc=169) HEMOGLOBIN [id number] 08:06:00 Test Item Value Reference Range Comments HEMOGLOBIN A1C (BEAKER) (test kkjc=976) 5.6 % 4.3-6.1 [id number] 06:57:00 Test Item Value Reference Range Comments PARTIAL THROMBOPLASTIN TIME (BEAKER) (test 62.5 seconds 22.5-36.0 fotf=524) BASIC METABOLIC [id number] 06:04:00 Test Item Value Reference Range Comments SODIUM (BEAKER) (test 139 meq/L 136-145 pbqq=561) POTASSIUM (BEAKER) (test 3.3 meq/L 3.5-5.1 hkgp=067) CHLORIDE (BEAKER) (test 106 meq/L 98-107 msam=226) CO2 (BEAKER) (test 27 meq/L 22-29 dxns=092) BLOOD UREA NITROGEN 7 mg/dL 7-21 (BEAKER) (test vgey=200) CREATININE (BEAKER) (test 0.82 mg/dL 0.57-1.25 dvmg=857) GLUCOSE RANDOM (BEAKER) 105 mg/dL 70-105 (test iipb=367) CALCIUM (BEAKER) (test 8.6 mg/dL 8.4-10.2 neqg=509) EGFR (BEAKER) (test mL/min/1.73 sq m INSUFFICIENT CLINICAL DATA rfmt=3280) TO CALCULATE ESTIMATED GFR. CBC (HEMOGRAM ONLY)2018-02-13 05:02:00 Test Item Value Reference Range Comments WHITE BLOOD CELL COUNT (BEAKER) (test mdun=497) 8.9 K/ L 3.5-10.5 RED BLOOD CELL COUNT (BEAKER) (test tevz=024) 2.76 M/ L 4.63-6.08 HEMOGLOBIN (BEAKER) (test aaqp=595) 8.3 GM/DL 13.7-17.5 HEMATOCRIT (BEAKER) (test ciof=319) 27.0 % 40.1-51.0 MEAN CORPUSCULAR VOLUME (BEAKER) (test dzef=075) 97.8 fL 79.0-92.2 MEAN CORPUSCULAR HEMOGLOBIN (BEAKER) (test 30.1 pg 25.7-32.2 nkog=890) MEAN CORPUSCULAR HEMOGLOBIN CONC (BEAKER) (test 30.7 GM/DL 32.3-36.5 nwff=000) RED CELL DISTRIBUTION WIDTH (BEAKER) (test 17.7 % 11.6-14.4 yikg=631) PLATELET COUNT (BEAKER) (test ejjn=057) 245 K/CU MM 150-450 MEAN PLATELET VOLUME (BEAKER) (test hprs=042) 9.9 fL 9.4-12.4 NUCLEATED RED BLOOD CELLS (BEAKER) (test 0 /100 WBC 0-0 olbw=902) [id number] 05:01:00 Test Item Value Reference Range Comments PARTIAL THROMBOPLASTIN TIME (BEAKER) (test 129.9 seconds 22.5-36.0 nqrs=593) While on warfarin.PROTHROMBIN TIME/[id number] 04:58:00 Test Item Value Reference Range Comments PROTIME (BEAKER) (test nknb=054) 18.2 seconds 11.7-14.7 INR (BEAKER) (test okvy=558) 1.5 <=5.9 RECOMMENDED COUMADIN/WARFARIN INR THERAPY RANGESSTANDARD DOSE: 2.0 - 3.0 Includes: PROPHYLAXIS forvenous thrombosis, systemic embolization; TREATMENT for venous thrombosis and/or pulmonary embolus.HIGH RISK: Target INR is 2.5-3.5 for patients with mechanical heart valves.While on warfarin.LIPID [id number] 21:59:00 Test Item Value Reference Range Comments TRIGLYCERIDES (BEAKER) (test idwj=003) 126 mg/dL CHOLESTEROL (BEAKER) (test bzhy=067) 166 mg/dL HDL CHOLESTEROL (BEAKER) (test liwf=223) 31 mg/dL LDL CHOLESTEROL CALCULATED (BEAKER) (test 110 mg/dL qogo=693) Triglyceride Reference Range: Low Risk <150 Borderline 150- 199 High Risk 200-499 Very High Risk >=500Cholesterol Reference Range: Low Risk <200 Borderline 200-239 High Risk > 240HDL Cholesterol Reference Range: Low Risk >=60 High Risk <40LDL Cholesterol Reference Range: Optimal <100 Near Optimal 100-129 Borderline 130-159 High 160-189 Very High >=[id number] 21:47:00 Test Item Value Reference Range Comments PARTIAL THROMBOPLASTIN TIME (BEAKER) (test 75.6 seconds 22.5-36.0 mtcx=029) HEMOGLOBIN AND [id number] 21:38:00 Test Item Value Reference Range Comments HEMOGLOBIN (BEAKER) (test mwbq=490) 8.6 GM/DL 13.7-17.5 HEMATOCRIT (BEAKER) (test shyj=649) 28.0 % 40.1-51.0 CT, CTANGIO [id number] 18:19:00FINAL REPORT CTA carotids and brain 02/12/2018 6:10 PM CLINICAL INDICATION: Stroke COMPARISON: None available TECHNIQUE: Noncontrast axial CT images of the head were obtained. Subsequently, axial CT angiographic images of the upper chest, neck, and head were obtained, from whichthree-dimensional reconstructed images were created. Additional imaging series [...] artery stenosis. There is no remarkable stenosis elsewherein the intracranial or extracranial arterial vasculature. There are bilateral small volume pleural effusions with adjacent basilar atelectasis. The remaining visualized soft tissue and skeleton are without worrisome finding. IMPRESSION: 1. No intracranial hemorrhage or mass effect. 2. Ischemic changes, which can be definitively characterized with MRI if clinically indicated. 3. Unremarkable intracranial and extracranial CTAs. 4. Bilateral small volume pleural effusions. Signed: Brayden Walker Verified Date/Time: 02/12/2018 18:19:07 Reading Location: [facility] Radiology Reading Room Electronically signed by: BRAYDEN WALKER M.D. on 06:19 PMCT, CAROTID, [id number] 18:19:00FINAL REPORT CTA carotids and brain 02/12/2018 6:10 PM CLINICAL INDICATION: Stroke COMPARISON: None available TECHNIQUE: Noncontrast axial CT images of the head were obtained. Subsequently, axial CT angiographic images of the upper chest, neck, and head were obtained, from whichthree-dimensional reconstructed images were created. Additional imaging series [...] artery stenosis. There is no remarkable stenosis elsewherein the intracranial or extracranial arterial vasculature. There are bilateral small volume pleural effusions with adjacent basilar atelectasis. The remaining visualized soft tissue and skeleton are without worrisome finding. IMPRESSION: 1. No intracranial hemorrhage or mass effect. 2. Ischemic changes, which can be definitively characterized with MRI if clinically indicated. 3. Unremarkable intracranial and extracranial CTAs. 4. Bilateral small volume pleural effusions. Signed: Brayden Walker Verified Date/Time: 02/12/2018 18:19:07 Reading Location: [facility] Radiology Reading Room Electronically signed by: BRAYDEN WALKER M.D. on 06:19 [facility] METABOLIC [id number] 15:37:00 Test Item Value Reference Range Comments SODIUM (BEAKER) (test 140 meq/L 136-145 enwj=945) POTASSIUM (BEAKER) (test 3.8 meq/L 3.5-5.1 Specimen slightly bzbi=244) hemolyzed CHLORIDE (BEAKER) (test 105 meq/L 98-107 cslo=385) CO2 (BEAKER) (test 30 meq/L 22-29 xoyw=652) BLOOD UREA NITROGEN 6 mg/dL 7-21 (BEAKER) (test olpd=804) CREATININE (BEAKER) (test 0.85 mg/dL 0.57-1.25 Specimen slightly akqv=488) hemolyzed GLUCOSE RANDOM (BEAKER) 113 mg/dL 70-105 (test nsbo=106) CALCIUM (BEAKER) (test 8.9 mg/dL 8.4-10.2 evpg=833) EGFR (BEAKER) (test mL/min/1.73 sq m INSUFFICIENT CLINICAL DATA axgs=2153) TO CALCULATE ESTIMATED GFR. [id number] 15:07:00 Test Item Value Reference Range Comments PARTIAL THROMBOPLASTIN TIME (BEAKER) (test 77.4 seconds 22.5-36.0 upao=293) HEMOGLOBIN AND [id number] 14:59:00 Test Item Value Reference Range Comments HEMOGLOBIN (BEAKER) (test hjgc=387) 8.7 GM/DL 13.7-17.5 HEMATOCRIT (BEAKER) (test zwbt=460) 27.7 % 40.1-51.0 POCT-GLUCOSE [id number] 12:31:00 Test Item Value Reference Range Comments POC-GLUCOSE METER (BEAKER) 118 mg/dL 70-110 TESTED AT [address] (test sxyg=6295) [facility] [address] CT, BRAIN/STROKE [id number] 12:24:00FINAL REPORT CT head without contrast INDICATION: Ataxia, [...] of iterative reconstruction technique. COMPARISON: None available FINDINGS:There is no acute intracranial hemorrhage or mass effect. A small right cerebellar chronic appearing infarct ispresent. Microvascular ischemia is present, including age indeterminate changes in the joellen. Please note that CT is insensitive for early or small infarcts. There is generalized parenchymal volume losswithout hydrocephalus or midline shift. There is polypoid sinus mucosal disease and suspected left nasal polyp protruding into the nasal passage. The mastoid air cells and orbits are unremarkable. The calvarium is intact. IMPRESSION: No acute intracranial hemorrhage or mass effect. Small chronic appearing right cerebellar infarct. Chronic and age indeterminate microvascular ischemia, including in thepons, for which further characterization with MRI can be obtained if there is no contraindication. Findings discussed with stroke neurology housestaff at 12:20 PM Signed: Justin Hamilton MDReport Verified Date/Time: 02/12/2018 12:24:12 Reading Location : [facility] Radiology Reading Room [id number] 07:08:00 Test Item Value Reference Range Comments PARTIAL THROMBOPLASTIN TIME (BEAKER) (test 119.2 seconds 22.5-36.0 ixie=843) While on warfarin.PROTHROMBIN TIME/[id number] 06:53:00 Test Item Value Reference Range Comments PROTIME (BEAKER) (test eczz=952) 17.0 seconds 11.7-14.7 INR (BEAKER) (test ftaa=257) 1.4 <=5.9 RECOMMENDED COUMADIN/WARFARIN INR THERAPY RANGESSTANDARD DOSE: 2.0 - 3.0 Includes: PROPHYLAXIS forvenous thrombosis, systemic embolization; TREATMENT for venous thrombosis and/or pulmonary embolus.HIGH RISK: Target INR is 2.5-3.5 for patients with mechanical heart valves.While on warfarin.HEMOGLOBIN AND [id number] 06:47:00 Test Item Value Reference Range Comments HEMOGLOBIN (BEAKER) (test vjvm=106) 8.4 GM/DL 13.7-17.5 HEMATOCRIT (BEAKER) (test xkph=736) 26.9 % 40.1-51.0 Baseline and daily starting prior to initiation of heparin infusionCBC ( HEMOGRAM ONLY)2018-02-12 06:47:00 Test Item Value Reference Range Comments WHITE BLOOD CELL COUNT (BEAKER) (test pbvl=502) 7.5 K/ L 3.5-10.5 RED BLOOD CELL COUNT (BEAKER) (test itmd=919) 2.76 M/ L 4.63-6.08 HEMOGLOBIN (BEAKER) (test imcy=516) 8.4 GM/DL 13.7-17.5 HEMATOCRIT (BEAKER) (test xpat=997) 26.9 % 40.1-51.0 MEAN CORPUSCULAR VOLUME (BEAKER) (test fccv=006) 97.5 fL 79.0-92.2 MEAN CORPUSCULAR HEMOGLOBIN (BEAKER) (test 30.4 pg 25.7-32.2 ehly=359) MEAN CORPUSCULAR HEMOGLOBIN CONC (BEAKER) (test 31.2 GM/DL 32.3-36.5 tgtk=352) RED CELL DISTRIBUTION WIDTH (BEAKER) (test 17.6 % 11.6-14.4 xinf=442) PLATELET COUNT (BEAKER) (test wyvg=737) 233 K/CU MM 150-450 MEAN PLATELET VOLUME (BEAKER) (test kdpn=528) 10.0 fL 9.4-12.4 NUCLEATED RED BLOOD CELLS (BEAKER) (test 0 /100 WBC 0-0 jeiu=929) [id number] 23:21:00 Test Item Value Reference Range Comments PARTIAL THROMBOPLASTIN TIME (BEAKER) (test 55.4 seconds 22.5-36.0 qjou=256) HEMOGLOBIN AND [id number] 22:51:00 Test Item Value Reference Range Comments HEMOGLOBIN (BEAKER) (test rcor=090) 8.8 GM/DL 13.7-17.5 HEMATOCRIT (BEAKER) (test hanp=578) 29.5 % 40.1-51.0 POCT-GLUCOSE [id number] 17:14:00 Test Item Value Reference Range Comments POC-GLUCOSE METER (BEAKER) 128 mg/dL 70-[address] [facility] [address] [facility] (test qogp=1944) [facility] [address] [id number] 15:48:00 Test Item Value Reference Range Comments PARTIAL THROMBOPLASTIN TIME (BEAKER) (test 33.7 seconds 22.5-36.0 qnbg=622) Prior to initiating heparinHEMOGLOBIN AND [id number] 13:58:00 Test Item Value Reference Range Comments HEMOGLOBIN (BEAKER) (test leao=620) 8.5 GM/DL 13.7-17.5 HEMATOCRIT (BEAKER) (test hoxa=304) 26.6 % 40.1-51.0 POCT-GLUCOSE [id number] 12:17:00 Test Item Value Reference Range Comments POC-GLUCOSE METER (BEAKER) 124 mg/dL 70-[address] [facility] [address] [place] [address] (test rsvn=9705) [facility] [address] RAD, CHEST, 1 VIEW, NON [id number] 07:19:00Reason for exam:->hypoxia; eval for perforated viscusShould this be performed at the bedside?->YesFINAL REPORT RAD, CHEST, 1 VIEW, NON DEPT INDICATION: hypoxia; eval for perforated viscus COMPARISON: None FINDINGS: Portable frontal view of the chest. IMPRESSION: Support Lines: None. Lungs and pleura: Basilar subsegmental atelectasis and trace effusions. Presuming upright positioning, no visible subdiaphragmatic gas. No pneumothorax.Heart and mediastinum: Prominent cardiac silhouette. Sternotomy wires are intact.Additional findings: None. Signed: JR Muñoz RobertMDReport Verified Date/Time: 02/11/2018 07:19: 35 Reading Location: [address] Neuro Reading Room RAD, ABDOMEN/KUB, 1 VIEW [id number] 07:18:00Reason for exam:->eval for perforated viscusShould this be performed at the bedside?->YesFINAL REPORT RAD, ABDOMEN/KUB, 1 VIEW AP CLINICAL INDICATION: eval for perforated viscus COMPARISON: None TECHNIQUE: Two frontal radiographs of the abdomen. IMPRESSION: The bowel gas pattern is nonspecific, but nonobstructive. No abnormal mass or ascites is detected. 60 mm calcification projecting over the inferior portion of the right upper quadrant. This may reflect gallbladder stone or on past superior pole renal stone. The regional skeleton is intact. Signed: JR Muñoz Robert MDReport Verified Date/Time: 02/11/2018 07:18:28 Reading Location : [facility] C013V Neuro Reading Room COMPREHENSIVE METABOLIC [id number] 06:09 :00 Test Item Value Reference Range Comments TOTAL PROTEIN (BEAKER) 6.2 gm/dL 6.0-8.3 (test vnjt=550) ALBUMIN (BEAKER) (test 3.1 g/dL 3.5-5.0 hemk=4993) ALKALINE PHOSPHATASE 65 U/L 40-150 (BEAKER) (test iyqd=699) BILIRUBIN TOTAL (BEAKER) 1.1 mg/dL 0.2-1.2 (test xene=198) SODIUM (BEAKER) (test 139 meq/L 136-145 glyz=478) POTASSIUM (BEAKER) (test 4.3 meq/L 3.5-5.1 oquj=681) CHLORIDE (BEAKER) (test 105 meq/L 98-107 zmjg=861) CO2 (BEAKER) (test 28 meq/L 22-29 evcj=999) BLOOD UREA NITROGEN 3 mg/dL 7-21 (BEAKER) (test qzwz=932) CREATININE (BEAKER) (test 0.73 mg/dL 0.57-1.25 sfuw=903) GLUCOSE RANDOM (BEAKER) 124 mg/dL 70-105 (test wdxk=338) CALCIUM (BEAKER) (test 8.8 mg/dL 8.4-10.2 bduo=049) AST (SGOT) (BEAKER) (test 27 U/L 5-34 xuao=329) ALT (SGPT) (BEAKER) (test 17 U/L 6-55 urzb=725) EGFR (BEAKER) (test mL/min/1.73 sq m INSUFFICIENT CLINICAL DATA zwwk=9876) TO CALCULATE ESTIMATED GFR. [id number] 06:07:00 Test Item Value Reference Range Comments PHOSPHORUS (BEAKER) (test ricw=633) 3.3 mg/dL 2.3-4.7 [id number] 06:07:00 Test Item Value Reference Range Comments MAGNESIUM (BEAKER) (test dboz=989) 1.8 mg/dL 1.6-2.6 PROTHROMBIN TIME/[id number] 05:46:00 Test Item Value Reference Range Comments PROTIME (BEAKER) (test kgqe=923) 16.0 seconds 11.7-14.7 INR (BEAKER) (test khyo=961) 1.3 <=5.9 RECOMMENDED COUMADIN/WARFARIN INR THERAPY RANGESSTANDARD DOSE: 2.0 - 3.0 Includes: PROPHYLAXIS forvenous thrombosis, systemic embolization; TREATMENT for venous thrombosis and/or pulmonary embolus.HIGH RISK: Target INR is 2.5-3.5 for patients with mechanical heart valves.CBC W/PLT COUNT & AUTO [id number] 05:39:00 Test Item Value Reference Range Comments WHITE BLOOD CELL COUNT (BEAKER) (test jtij=336) 8.6 K/ L 3.5-10.5 RED BLOOD CELL COUNT (BEAKER) (test vwur=180) 3.01 M/ L 4.63-6.08 HEMOGLOBIN (BEAKER) (test tjcf=779) 9.2 GM/DL 13.7-17.5 HEMATOCRIT (BEAKER) (test agjn=057) 29.2 % 40.1-51.0 MEAN CORPUSCULAR VOLUME (BEAKER) (test ggcn=249) 97.0 fL 79.0-92.2 MEAN CORPUSCULAR HEMOGLOBIN (BEAKER) (test 30.6 pg 25.7-32.2 fbdp=876) MEAN CORPUSCULAR HEMOGLOBIN CONC (BEAKER) (test 31.5 GM/DL 32.3-36.5 uyrl=227) RED CELL DISTRIBUTION WIDTH (BEAKER) (test 17.2 % 11.6-14.4 mwzi=020) PLATELET COUNT (BEAKER) (test gojc=243) 267 K/CU MM 150-450 MEAN PLATELET VOLUME (BEAKER) (test czaq=639) 9.9 fL 9.4-12.4 NUCLEATED RED BLOOD CELLS (BEAKER) (test 0 /100 WBC 0-0 xxsd=784) NEUTROPHILS RELATIVE PERCENT (BEAKER) (test 51 % pneo=197) LYMPHOCYTES RELATIVE PERCENT (BEAKER) (test 39 % bhim=367) MONOCYTES RELATIVE PERCENT (BEAKER) (test 6 % qaxk=101) EOSINOPHILS RELATIVE PERCENT (BEAKER) (test 0 % eqwd=258) BASOPHILS RELATIVE PERCENT (BEAKER) (test 1 % ffxt=771) NEUTROPHILS ABSOLUTE COUNT (BEAKER) (test 4.42 K/ L 1.78-5.38 obih=883) LYMPHOCYTES ABSOLUTE COUNT (BEAKER) (test 3.37 K/ L 1.32-3.57 zeex=647) MONOCYTES ABSOLUTE COUNT (BEAKER) (test 0.49 K/ L 0.30-0.82 wmdg=754) EOSINOPHILS ABSOLUTE COUNT (BEAKER) (test 0.02 K/ L 0.04-0.54 qmxl=511) BASOPHILS ABSOLUTE COUNT (BEAKER) (test 0.04 K/ L 0.01-0.08 veqj=200) IMMATURE GRANULOCYTES-RELATIVE PERCENT (BEAKER) 3 % 0-1 (test uewb=4666)
[2018-03-17] MEDS ORDERED: NA CHLORIDE 0.9% 1,000 ML ONE (09:42)
[2018-03-17 09:47] LABS: Absolute Lymphocytes (CBC) 1.2 K/uL (0.7-4.9); Absolute Monocytes 0.9 K/uL (0.1-1.3); Absolute Neutrophil 10.2 K/uL (1.8-8.0); Basophils % 0.2 % (0-1.3); Hematocrit 39.2 % (39.6-49.0); Lymphocytes % 10.1 % (15.3-44.8); MCH 32.7 pg (27.0-35.0); MCV 95.3 fL (80-100); MPV 8.1 fL (7.6-11.3); RBC Red Blood Cell Count 4.11 M/uL (4.33-5.43)
[2018-03-17 10:04] LABS: Albumin 2.6 g/dL (3.4-5.0); Bilirubin Direct 0.8 mg/dL (0-0.2); Bilirubin Total 1.9 mg/dL (0.2-1.0); Potassium 3.8 mmol/L (3.5-5.1); Protein, Total 7.2 g/dL (6.4-8.2)
[2018-03-17] MEDS ORDERED: ACETAMINOPHEN 325 MG TABLET ONE (10:15)
--- NOTE | 2018-03-17 10:47 | RAD REPORT ---
EXAM DESCRIPTION: CTAbdomen Pelvis W Contrast - 03/17/2018 10:36 am CLINICAL HISTORY: Abdominal pain. ABD PAIN COMPARISON: Abdomen Pelvis W Contrast dated 02/04/2018; Stone Protocol dated 01/10/2018; Chest Abdo men Pelvis W Cont dated 07/26/2016 TECHNIQUE: Biphasic CT imaging of the abdomen and pelvis was performed with 100 ml non-ionic IV cont rast. All CT scans are performed using dose optimization technique as appropriate and may include automated exposure control or mA/KV adjustment according to patient size. FINDINGS: Small pleural effusion is present on the left.Mild atelectasis is present in both posterio r lung bases. A small hiatal hernia is present. The liver demonstrates no focal mass or biliary dilatation. The spleen, pancreas, left adrenal gland is normal. The right adrenal gland contains a 16 mm mass, likely an adenoma. There is severe inflamma tory changes in the right upper quadrant with distention and thickening of the gallbladder. There is significant secondary inflammatory change suspected involving the hepatic flexure the colon. Mild ascites is present along the right liver edge in extending into the pelvis. The appendix is nor mal. No evidence of significant lymphadenopathy. No suspicious bony findings. IMPRESSION: Severe inflammatory changes are present in the right upper quadrant, suspected to be rel ated to significant acute cholecystitis.
[2018-03-17 13:39] LABS: Protime INR 12.3
[2018-03-17 14:12] LABS: Urine Blood TRACE (NEG); Urine Glucose NEGATIVE (NEG); Urine Protein 2+ (NEG); Urine pH 5.5 (5.0-7.0)
--- NOTE | 2018-03-17 14:14 | RAD REPORT ---
EXAM DESCRIPTION: MRI - Cholangiogram - 03/17/2018 1:53 pm FINDINGS: Three-dimensional MRCP was performed using maximum intensity projection reconstruction on the same work station. Severe inflammatory changes are present in the right upper quadrant. The gallbladder is markedly abno rmal appearance with marked inflammatory changes present. Intraluminal hyperintense material is noted within the gallbladder. Mild free fluid is seen around the liver edge in the right upper quadrant. There is no evidence of intra or extrahepatic biliary tree dilatation. Pancreatic duct is normal lazaro maine. IMPRESSION: No abnormal biliary tree dilatation is seen. No evidence common bile duct stone. Severe inflammation involving the right upper quadrant, specifically the gallbladder, most compatible with severe cholecystitis.
--- NOTE | 2018-03-17 15:56 | ER ---
Nurse's Notes [facility] Name: Abdirizak Diaz Age: 67 yrs Sex: Male : 1950 Arrival Date: 03/17/2018 Time: 08:47 Bed 20 Private MD: Alexandria Gilmore A Diagnosis: Acute cholecystitis;Hypocoagulopathy Presentation: 03/17 09:03 Presenting complaint: Patient states: went to Dr. Gilmore office this morning for dark em urine, was told to come to the ER because it was old blood, pt c/o of RUQ pain, denies N/V/D, fever. Transition of care: patient was not received from another setting of care. Onset of symptoms was March 13, 2018. Risk Assessment: Do you want to hurt yourself or someone else? Patient reports no desire to harm self or others. Initial Sepsis Screen: Does the patient meet any 2 criteria? Temp <36.0*C (96.8*F)) or > 38.3*C (100.9*F). HR > 90 bpm. Yes Does the patient have a suspected source of infection? Yes: Dysuria/Frequency/Urgency/UTI. Care prior to arrival: None. 09:03 Method Of Arrival: Ambulatory em 09:10 Acuity: ERIBERTO 3 ss Triage Assessment: 09:08 General: Appears in no apparent distress. uncomfortable, Behavior is calm, cooperative. em Pain: Complains of pain in right upper quadrant. Historical: - Allergies: 09:08 Aspirin; em 09:08 Keppra; em - Home Meds: 09:08 Lamictal 200 mg Oral tab 1 tab 2 times per day [Active]; Vimpat 200 mg Oral tab 1 tab 2 em times per day [Active]; - PMHx: 09:08 High Cholesterol; Hypertension; Seizures; em - PSHx: 09:08 Hernia repair; mechanical valve replacement; em - Immunization history:: Adult Immunizations up to date. - Social history:: Smoking status: Patient/guardian denies using tobacco. - Ebola Screening: : Patient negative for fever greater than or equal to 101.5 degrees Fahrenheit, and additional compatible Ebola Virus Disease symptoms Patient denies exposure to infectious person Patient denies travel to an Ebola-affected area in the 21 days before illness onset No symptoms or risks identified at this time. Screenin:10 Abuse screen: Denies threats or abuse. Nutritional screening: No deficits noted. em Tuberculosis screening: No symptoms or risk factors identified. Fall Risk None identified. Assessment: 09:08 General: Appears in no apparent distress. uncomfortable, Behavior is calm, cooperative, em Denies fever. Pain: Complains of pain in right upper quadrant Pain currently is 9 out of 10 on a pain scale. Neuro: Level of Consciousness is awake, alert, obeys commands, Oriented to person, place, time, situation. Cardiovascular: Capillary refill < 3 seconds Patient's skin is warm and dry. Respiratory: Airway is patent Respiratory effort is even, unlabored, Respiratory pattern is regular, symmetrical. GI: Abdomen is distended, Bowel sounds present X 4 quads. Abd is soft X 4 quads Abdomen is tender to palpation in right upper quadrant Patient currently denies diarrhea, nausea, vomiting. : Reports dark urine. EENT: No signs and/or symptoms were reported regarding the EENT system. Derm: Skin is intact, is healthy with good turgor, Skin is pink, warm \T\ dry. Musculoskeletal: Range of motion: intact in all extremities. 09:15 General: The previous assessment is accurate, call light remains within reach. . ss 10:08 Reassessment: Patient appears in no apparent distress at this time. Patient and/or em family updated on plan of care and expected duration. Pain level reassessed. Patient is alert, oriented x 3, equal unlabored respirations, skin warm/dry/pink. 11:00 Reassessment: Patient appears in no apparent distress at this time. Patient and/or em family updated on plan of care and expected duration. Pain level reassessed. Patient is alert, oriented x 3, equal unlabored respirations, skin warm/dry/pink. 12:00 Reassessment: Patient appears in no apparent distress at this time. Patient and/or em family updated on plan of care and expected duration. Pain level reassessed. Patient is alert, oriented x 3, equal unlabored respirations, skin warm/dry/pink. Patient states feeling better. 13:00 Reassessment: Patient appears in no apparent distress at this time. Patient and/or em family updated on plan of care and expected duration. Pain level reassessed. Patient is alert, oriented x 3, equal unlabored respirations, skin warm/dry/pink. 15:05 Reassessment: Patient appears in no apparent distress at this time. Patient and/or em family updated on plan of care and expected duration. Pain level reassessed. Patient is alert, oriented x 3, equal unlabored respirations, skin warm/dry/pink. Patient states feeling better. 16:36 Reassessment: Patient appears in no apparent distress at this time. Patient and/or em family updated on plan of care and expected duration. Pain level reassessed. Patient is alert, oriented x 3, equal unlabored respirations, skin warm/dry/pink. pending transfer. 17:49 Reassessment: Patient appears in no apparent distress at this time. Patient and/or em family updated on plan of care and expected duration. Pain level reassessed. Patient is alert, oriented x 3, equal unlabored respirations, skin warm/dry/pink. report given to CARMEN Taylor at [facility] at [facility] Patient denies pain at this time. 18:46 Reassessment: Patient appears in no apparent distress at this time. Patient and/or em family updated on plan of care and expected duration. Pain level reassessed. Patient is alert, oriented x 3, equal unlabored respirations, skin warm/dry/pink. Patient denies pain at this time. Patient states feeling better. 19:05 Reassessment: Patient appears in no apparent distress at this time. Patient and/or rr5 family updated on plan of care and expected duration. Pain level reassessed. no complaints made awaiting for EMS for transfer in [facility]. Patient denies pain at this time. Patient states symptoms have improved. 19:24 Reassessment: Patient appears in no apparent distress at this time. handover to [address] [facility]. vitally stable. without complaints made. Vital Signs: 09:08 BP 114 / 76; Pulse 116; Resp 16; Temp 99.8(O); Pulse Ox 96% on R/A; Weight 81.65 kg; em Height 6 ft. 0 in. (182.88 cm); Pain 9/10; 10:08 BP 119 / 71; Pulse 101; Resp 18; Temp 100.3(O); Pulse Ox 100% on R/A; em 11:31 BP 101 / 53; Pulse 95; Resp 18; Pulse Ox 99% on R/A; em 12:39 BP 109 / 67; Pulse 94; Resp 16; Pulse Ox 97% on R/A; Pain 3/10; em 14:25 BP 104 / 73; Pulse 95; Resp 17; Pulse Ox 96% on R/A; em 15:25 BP 103 / 71; Pulse 96; Resp 18; Temp 98.9(O); Pulse Ox 95% on R/A; em 16:23 BP 107 / 65; Pulse 99; Resp 17; Pulse Ox 96% on R/A; dh3 17:30 BP 109 / 69; Pulse 99; Resp 18; Pulse Ox 100% on R/A; Pain 0/10; em 18:37 BP 115 / 69; Pulse 97; Resp 18; Temp 98.4(O); Pulse Ox 100% on R/A; Pain 0/10; em 19:05 BP 107 / 71; Pulse 90; Resp 17; Pulse Ox 99% on R/A; rr5 09:08 Body Mass Index 24.41 (81.65 kg, 182.88 cm) em ED Course: 08:47 Patient arrived in ED. sb2 08:47 Alexandria Gilmore MD is Private Physician. sb2 08:49 Meliton Rivera MD is Attending Physician. kdr 08:51 Michael Rick LVN is Primary Nurse. em 09:08 Arm band placed on. em 09:10 Triage completed. ss 09:10 Patient has correct armband on for positive identification. Placed in gown. Bed in low em position. Call light in reach. Side rails up X2. Adult w/ patient. antique jewelry repairer on. Pulse ox on. NIBP on. 09:30 Initial lab(s) drawn, by ED staff, sent to lab. Inserted saline lock: 20 gauge in right em antecubital area, using aseptic technique. Blood collected. 10:37 CT Abd/Pelvis - W/Contrast In Process Unspecified. EDMS 13:10 Patient moved to MRI via wheelchair. em2 13:53 MRI completed. Patient tolerated well. em2 13:53 Patient moved back from MRI. em2 13:54 Cholangiogram In Process Unspecified. EDMS 15:05 Urine collected: clean catch specimen, tea colored. em 19:30 No provider procedures requiring assistance completed. Patient transferred, IV remains rr5 in place. intact. Administered Medications: 09:39 Drug: NS 0.9% 1000 ml Route: IV; Rate: 1 bolus; Site: right antecubital; em 10:15 Follow up: IV Status: Completed infusion; IV Intake: 1000ml em 10:15 Drug: Tylenol 650 mg Route: PO; em 15:42 Follow up: Response: No adverse reaction; Temperature is decreased em 17:36 Drug: Flagyl 500 mg Volume: 100 ml; Route: IVPB; Rate: 200 ml/hr; Infused Over: 30 em mins; Site: right antecubital; 18:10 Follow up: IV Status: Completed infusion; IV Intake: 100ml em 17:36 Drug: Zosyn 3.375 grams Route: IVPB; Infused Over: 60 mins; Site: right antecubital; em 18:19 Follow up: Response: No adverse reaction; IV Status: Completed infusion; IV Intake: em 100ml 18:43 Drug: Vimpat 200 mg Route: PO; em 19:08 Follow up: Response: No adverse reaction em 18:43 Drug: LaMICtal 150 mg Route: PO; em 19:08 Follow up: Response: No adverse reaction em Intake: 10:15 IV: 1000ml; Total: 1000ml. em 18:10 IV: 100ml; Total: 1100ml. em 18:19 IV: 100ml; Total: 1200ml. em Output: 15:00 Urine: 300ml (Voided); Total: 300ml. em Outcome: 15:55 ER care complete, transfer ordered by . kdr 19:30 Transferred by ground EMS to [facility], Transfer form completed. rr5 19:30 Condition: stable 19:30 Instructed on the need for transfer, Demonstrated understanding of instructions. 19:32 Patient left the ED. rr5 Signatures: Dispatcher [employer] EDMS Meliton Rivera MD MD kdr Munoz, Edgar, ORTHODONTIST VICE PRESIDENT ORTHODONTIST VICE PRESIDENT em Pooja Rooney RN RN ss Montes, Enrique em2 Eden Eaton 3 Annette Dietz 2 Bg Peter RN RN rr5 Corrections: (The following items were deleted from the chart) 19:29 19:24 Reassessment: Patient appears in no apparent distress at this time. Patient rr5 and/or family updated on plan of care and expected duration. Pain level reassessed. no complaints made awaiting for EMS for transfer in [facility]. Patient denies pain at this time. Patient states symptoms have improved. rr5
--- NOTE | 2018-03-17 15:56 | EDPHYS ---
Physician Documentation [facility] Name: Abdirizak Diaz Age: 67 yrs Sex: Male : 1950 Arrival Date: 03/17/2018 Time: 08:47 Bed 20 Private MD: Alexandria Gilmore, A ED Physician Meliton Rivera HPI: 03/17 10:47 This 67 yrs old Male presents to ER via Ambulatory with complaints of BLOOD kdr IN URINE. 10:47 The patient presents with abdominal pain in the upper abdomen, in the right upper kdr quadrant, abdominal distention that is diffuse. Onset: The symptoms/episode began/occurred gradually, 1 week(s) ago. The symptoms do not radiate. Associated signs and symptoms: Pertinent positives:. Historical: - Allergies: 09:08 Aspirin; em 09:08 Keppra; em - Home Meds: 09:08 Lamictal 200 mg Oral tab 1 tab 2 times per day [Active]; Vimpat 200 mg Oral tab 1 tab 2 em times per day [Active]; - PMHx: 09:08 High Cholesterol; Hypertension; Seizures; em - PSHx: 09:08 Hernia repair; mechanical valve replacement; em - Immunization history:: Adult Immunizations up to date. - Social history:: Smoking status: Patient/guardian denies using tobacco. - Ebola Screening: : Patient negative for fever greater than or equal to 101.5 degrees Fahrenheit, and additional compatible Ebola Virus Disease symptoms Patient denies exposure to infectious person Patient denies travel to an Ebola-affected area in the 21 days before illness onset No symptoms or risks identified at this time. ROS: 18:17 Constitutional: Negative for fever, chills, and weight loss, Eyes: Negative for injury, kdr pain, redness, and discharge, ENT: Negative for injury, pain, and discharge, Neck: Negative for injury, pain, and swelling, Cardiovascular: Negative for chest pain, palpitations, and edema, Respiratory: Negative for shortness of breath, cough, wheezing, and pleuritic chest pain, Back: Negative for injury and pain, MS/Extremity: Negative for injury and deformity, Skin: Negative for injury, rash, and discoloration, Neuro: Negative for headache, weakness, numbness, tingling, and seizure activity. Psych: Negative for depression, anxiety, suicide ideation, homicidal ideation, and hallucinations, Allergy/Immunology: Negative for hives, rash, and allergies, Endocrine: Negative for neck swelling, polydipsia, polyuria, polyphagia, and marked weight changes, Hematologic/Lymphatic: Negative for swollen nodes, abnormal bleeding, and unusual bruising. 18:17 Abdomen/GI: Positive for abdominal pain, nausea and vomiting. 18:17 : Positive for urinary symptoms, Negative for penile pain, testicular pain Exam: 18:17 Constitutional: This is a well developed, well nourished patient who is awake, alert, kdr and in no acute distress. Head/Face: Normocephalic, atraumatic. Eyes: Pupils equal round and reactive to light, extra-ocular motions intact. Lids and lashes normal. Conjunctiva and sclera are non-icteric and not injected. Cornea within normal limits. Periorbital areas with no swelling, redness, or edema. Neck: Trachea midline, no thyromegaly or masses palpated, and no cervical lymphadenopathy. Supple, full range of motion without nuchal rigidity, or vertebral point tenderness. No Meningismus. Chest/axilla: Normal chest wall appearance and motion. Nontender with no deformity. No lesions are appreciated. Cardiovascular: Regular rate and rhythm with a normal S1 and S2. No gallops, murmurs, or rubs. Normal PMI, no JVD. No pulse deficits. Respiratory: Lungs have equal breath sounds bilaterally, clear to auscultation and percussion. No rales, rhonchi or wheezes noted. No increased work of breathing, no retractions or nasal flaring. Back: No spinal tenderness. No costovertebral tenderness. Full range of motion. Skin: Warm, dry with normal turgor. Normal color with no rashes, no lesions, and no evidence of cellulitis. MS/ Extremity: Pulses equal, no cyanosis. Neurovascular intact. Full, normal range of motion. Neuro: Awake and alert, GCS 15, oriented to person, place, time, and situation. Cranial nerves II-XII grossly intact. Motor strength 5/5 in all extremities. Sensory grossly intact. Cerebellar exam normal. Normal gait. Psych: Awake, alert, with orientation to person, place and time. Behavior, mood, and affect are within normal limits. 18:17 Abdomen/GI: Inspection: abdomen appears normal, distension, Patient denies acute change in girth, obese Bowel sounds: active, all quadrants, diminished, Palpation: soft, moderate abdominal tenderness, in the right upper quadrant. Vital Signs: 09:08 BP 114 / 76; Pulse 116; Resp 16; Temp 99.8(O); Pulse Ox 96% on R/A; Weight 81.65 kg; em Height 6 ft. 0 in. (182.88 cm); Pain 9/10; 10:08 BP 119 / 71; Pulse 101; Resp 18; Temp 100.3(O); Pulse Ox 100% on R/A; em 11:31 BP 101 / 53; Pulse 95; Resp 18; Pulse Ox 99% on R/A; em 12:39 BP 109 / 67; Pulse 94; Resp 16; Pulse Ox 97% on R/A; Pain 3/10; em 14:25 BP 104 / 73; Pulse 95; Resp 17; Pulse Ox 96% on R/A; em 15:25 BP 103 / 71; Pulse 96; Resp 18; Temp 98.9(O); Pulse Ox 95% on R/A; em 16:23 BP 107 / 65; Pulse 99; Resp 17; Pulse Ox 96% on R/A; dh3 17:30 BP 109 / 69; Pulse 99; Resp 18; Pulse Ox 100% on R/A; Pain 0/10; em 18:37 BP 115 / 69; Pulse 97; Resp 18; Temp 98.4(O); Pulse Ox 100% on R/A; Pain 0/10; em 19:05 BP 107 / 71; Pulse 90; Resp 17; Pulse Ox 99% on R/A; rr5 09:08 Body Mass Index 24.41 (81.65 kg, 182.88 cm) em MDM: 15:55 Patient medically screened. kdr 18:17 Data reviewed: vital signs, nurses notes, lab test result(s), radiologic studies. kdr Counseling: I had a detailed discussion with the patient and/or guardian regarding: the historical points, exam findings, and any diagnostic results supporting the discharge/admit diagnosis, lab results, radiology results, the need to transfer to another facility. ED course: D/w Dr. Bowen - will need MCRP to determine if ERCP is needed. If no then could retain here. If yes, then transfer. MRCP negative but INR noted to be 12.3. D/w Dr. Mclaughlin. - patient will need percutaneous drainage of gallbladder by packing line operator which is not available here - recommend transfer. D/w Dr. Guzman at [facility]. Will accept in transfer - no action requested with regard to INR (no vitamin K/blood products). 03/17 09:11 Order name: Basic Metabolic Panel; Complete Time: 11:00 em 03/17 09:11 Order name: CBC with Diff; Complete Time: 11:00 em 03/17 09:11 Order name: Creatinine for Radiology; Complete Time: 11:00 em 03/17 09:11 Order name: Hepatic Function; Complete Time: 11:00 em 03/17 09:11 Order name: Lipase; Complete Time: 11:00 em 03/17 12:55 Order name: Ptt, Activated; Complete Time: 14:12 em 03/17 09:16 Order name: CT Abd/Pelvis - W/Contrast; Complete Time: 11:00 kdr 03/17 12:06 Order name: Cholangiogram; Complete Time: 14:49 EDMS 03/17 12:55 Order name: Protime (+inr); Complete Time: 14:12 em 03/17 14:05 Order name: Urine Dipstick--Ancillary (enter results); Complete Time: 14:49 bd 03/17 14:05 Order name: Urine Culture bd 03/17 08:55 Order name: Urine Dipstick-Ancillary (obtain specimen); Complete Time: 15:05 kdr 03/17 09:11 Order name: IV Saline Lock; Complete Time: 09:39 em 03/17 09:11 Order name: Labs collected and sent; Complete Time: 09:39 em Administered Medications: 09:39 Drug: NS 0.9% 1000 ml Route: IV; Rate: 1 bolus; Site: right antecubital; em 10:15 Follow up: IV Status: Completed infusion; IV Intake: 1000ml em 10:15 Drug: Tylenol 650 mg Route: PO; em 15:42 Follow up: Response: No adverse reaction; Temperature is decreased em 17:36 Drug: Flagyl 500 mg Volume: 100 ml; Route: IVPB; Rate: 200 ml/hr; Infused Over: 30 em mins; Site: right antecubital; 18:10 Follow up: IV Status: Completed infusion; IV Intake: 100ml em 17:36 Drug: Zosyn 3.375 grams Route: IVPB; Infused Over: 60 mins; Site: right antecubital; em 18:19 Follow up: Response: No adverse reaction; IV Status: Completed infusion; IV Intake: em 100ml 18:43 Drug: Vimpat 200 mg Route: PO; em 19:08 Follow up: Response: No adverse reaction em 18:43 Drug: LaMICtal 150 mg Route: PO; em 19:08 Follow up: Response: No adverse reaction em Disposition: 03/17/18 15:[address] [facility]. Diagnosis are Acute cholecystitis, Hypocoagulopathy. - Reason for transfer: Higher level of care. - Accepting physician is Dr. Crook. - Condition is Fair. - Problem is new. - Symptoms are unchanged. Signatures: Dispatcher [employer] EDMeliton Daley MD MD kdr Michael Rick, GREEK PROFESSOR GREEK PROFESSOR em Bg Peter RN RN rr5 Corrections: (The following items were deleted from the chart) 19:32 15:55 03/17/2018 15:[address] [facility]. Diagnosis is rr5 Acute cholecystitis; Hypocoagulopathy. Reason for transfer: Higher level of care. Accepting physician is Dr. Crook. Condition is Fair. Problem is new. Symptoms are unchanged. kdr
[2018-03-17] MEDS ORDERED: METRONIDAZOLE 500mg IVPB 500 MG/100 ML BAG IV ONE (17:35)
[2018-03-17] MEDS ORDERED: PIPER/TAZO/NS 3.375gm 3.375 GM/100 ML BAG ONE (17:35)
[2018-03-17] MEDS ORDERED: LACOSAMIDE 50 MG TABLET PO ONE (19:00)
[2018-03-17] MEDS ORDERED: lamoTRIgine 150 MG TAB PO ONE (19:00)
== END 2018-03-17 19:32 | disposition short-term general hospital (02) ==
LOC: ER 08:44
DX: K81.0 Acute cholecystitis (principal); D68.9 Coagulation defect, unspecified; I10 Essential (primary) hypertension; E78.00 Pure hypercholesterolemia, unspecified; G40.909 Epilepsy, unspecified, not intractable, without status epilepticus; Z88.6 Allergy status to analgesic agent; Z88.8 Allergy status to other drugs, medicaments and biological substances
CPT/HCPCS: 36415; 74177; 74181; 80048; 80076; 81003; 83690; 85025; 85610; 85730; 87086; 87088; J2543; J7030; Q9967

== ENCOUNTER 2020-03-08 13:09 | Emergency (ER) | payer OTHER ==
--- OUTSIDE RECORDS SUMMARY | 2020-03-08 13:11 | XMS REPORT | Clinical Summary ---
:1950 Author Organization [facility] Address [address] [place] [address] Care Team Providers Name Role Phone KelseyJennifer Primary Care Provider Allergies Active Allergy Reactions Severity Noted Date Comments Levetiracetam Other (See Comments) Medium 02/11/2018 unknow n Medications Medication Sig Dispensed Refills Start End Status Date Date lamoTRIgine Take 150 mg by 0 Act andry (LAMICTAL) 200 MG mouth 2 (two) tabletIndications: times daily . complex-partial epilepsy lacosamide 200 mg Take 200 mg by 0 Active TabIndications: in mouth 2 (two) pm takes 250 mg times daily . cyanocobalamin Take 1,200 mcg by 0 Active (VITAMIN B-12) 1000 mouth daily. MCG tablet thiamine (VITAMIN Take 100 mg by 0 Active B-1) 100 MG tablet mouth daily. valsartan (DIOVAN) Take 80 mg by 0 Active 80 MG tablet mouth daily . ascorbic acid, Take 500 mg by 0 Active vitamin C, mouth daily. (ASCORBIC ACID WITH OSIEL HIPS) 500 MG tablet atorvastatin Take 40 mg by 0 Act andry (LIPITOR) 40 MG mouth daily. tablet dexlansoprazole 60 Take 60 mg by 0 Active mg capsule mouth nightly . pantoprazole Take 40 mg by 0 Act andry (PROTONIX) 40 MG mouth daily. tablet warfarin (COUMADIN, Take 1 mg by mouth 0 Active JANTOVEN) 1 MG daily. tablet enoxaparin Inject 0 Active (LOVENOX) 80 mg/0.8 subcutaneously mL SyrgIndications: every 12 (twelve) lovenox bridge hours. gabapentin Take 600 mg by 0 Acti ve (NEURONTIN) 600 MG mouth 2 (two) tabletIndications: times daily. 1/2 tablet twice a day loratadine Take 10 mg by 0 Activ e (CLARITIN) 10 mg mouth daily. tablet cholecalciferol, Take 5,000 Units 0 Active vitamin D3, by mouth daily. (Vitamin D3) 125 mcg (5,000 unit) Tab Lactobac Take by mouth 0 Active no.41/Bifidobact daily. no.7 (PROBIOTIC-10 ORAL) ascorbic acid, Take 1 tablet 30 tablet 11 04/30/19 E xpired vitamin C, (VITAMIN (1,000 mg total) 19 020 C) 1000 MG tablet by mouth daily. acetaminophen Take 2 tablets 30 tablet 0 04/30/19 E xpired (TYLENOL) 325 MG (650 mg total) by 020 tablet mouth every 6 (six) hours as needed for Pain for up to 360 days. warfarin (COUMADIN, Take 1 mg by mouth 0 0 Discontinued JANTOVEN) 1 MG daily. 020 (Maya ent tablet Discharge) loratadine Take 10 mg by 0 Disco ntinued (CLARITIN) 10 mg mouth daily. 020 (Patient tablet Discharge) ascorbic acid, Take 500 mg by 0 Discontinued vitamin C, mouth daily. 020 (Patie nt (ASCORBIC ACID WITH Discharge) OSIEL HIPS) 500 MG tablet coenzyme Q10 100 mg Take 100 mg by 0 10/20 Discontinued capsule mouth daily. 020 (Patien t Discharge) atorvastatin Take 40 mg by 0 Dis continued (LIPITOR) 40 MG mouth daily. 020 ( Patient tablet Discharge) dexlansoprazole 60 Take 60 mg by 0 Discontinued mg capsule mouth daily. 020 (Patie nt Discharge) pantoprazole Take 40 mg by 0 Dis continued (PROTONIX) 40 MG mouth daily. 020 (Patient tablet Discharge) coenzyme Q10 200 mg Take 200 mg by 0 01/17 Discontinued capsule mouth daily. 020 (Error) Active Problems Problem Noted Date Abscess 04/26/2018 Wound infection 04/26/2018 Wound dehiscence 04/26/2018 Rectus sheath hematoma 03/30/2018 Urinary retention 03/30/2018 Acute hemorrhagic cholecystitis 03/19/2018 S/P cholecystectomy 03/19/2018 Acute pain 03/19/2018 Chronic diastolic heart failure 03/19/2018 PUD (peptic ulcer disease) 03/19/2018 Elevated INR (international normalized ratio) due to p rior anticoagulant 03/19/2018 medication ingestion Encephalopathy 03/19/2018 Abdominal pain 03/17/2018 Esophagitis determined by endoscopy 02/15/2018 Acute GI bleeding 02/15/2018 Valvular heart disease 02/15/2018 Physical deconditioning 02/15/2018 Hypertension 02/15/2018 Constipation 02/15/2018 Esophageal ulcer with bleeding 02/11/2018 Seizure disorder 02/11/2018 H/O aortic valve replacement 02/11/2018 Benign essential HTN 02/11/2018 HLD (hyperlipidemia) 02/11/2018 Acute blood loss anemia 02/11/2018 Protein-calorie malnutrition, moderate 02/11/2018 Encounters Date Type Specialty Care Team Description 03/06/2020 Anesthesia Event Gastroenterology Maren Florian MD 03/06/2020 Surgery Gastroenterology [facility], Chuckie UPPER Phuong ENDOSCOPY,DILAT ATI ON 03/06/2020 Hospital Encounter Gastroenterology [facility], [facility] 03/06/2020 Travel 03/05/2020 Hospital Encounter Pre-Admission Testing Arrived 03/05/2020 Travel 02/14/2020 Anesthesia Event Gastroenterology Audra Sparks MD 02/14/2020 Surgery Gastroenterology [facility], Chuckie UPPER Phuong ENDOSCOPY,BIOPS Y 02/14/2020 Hospital Encounter Gastroenterology [facility], [facility] Ph[facility]ong 02/14/2020 Travel 02/13/2020 Hospital Encounter Pre-Admission Testing 01/20/2020 Anesthesia Event Gastroenterology Chelsie Shah DO Fernandez, Cristina Margarita, MD 01/20/2020 Surgery Gastroenterology [facility], Chuckie UPPER [facility] ENDOSCOPY,DILAT ATI ON 01/20/2020 [facility] Travel 01/18/2020 Hospital Encounter Pre-Admission Testing 01/18/2020 Travel after 03/08/2019 Family History Medical History Relation Name Comments No Known Problem Father Hyperlipidemia Mother Relation Name Status Comments Father Other at young ag e Mother Social History Tobacco Use Types Packs/Day Years Used Date Never Smoker Smokeless Tobacco: Never Used Alcohol Use Drinks/Week oz/Week Comments No Alcohol Habits Answer Date Recorded How often do you have a drink containing alcohol? Never 02/11/2018 How many drinks containing alcohol do you have on a typical Not asked day when you are drinking? How often do you have six or more drinks on one occasion? No t asked Sex Assigned at Date Recorded Not on file COVID-19 Exposure Response Date Recorded In the last month, have you been in contact with No / Unsure 03/06/2020 11:31 AM JUKEBOX OPERATOR someone who was confirmed or suspected to have Coronavirus / COVID-19? Last Filed Vital Signs Vital Sign Reading Time Taken Comments Blood Pressure 170/72 03/06/2020 12:50 PM JUKEBOX OPERATOR Pulse 54 03/06/2020 12:50 PM JUKEBOX OPERATOR Temperature 36.8 C (98.3 F) 03/06/2020 12:05 PM JUKEBOX OPERATOR Respiratory Rate 27 03/06/2020 12:50 PM JUKEBOX OPERATOR Oxygen Saturation 100% 03/06/2020 12:50 PM JUKEBOX OPERATOR Inhaled Oxygen Concentration - - Weight 90.3 kg (199 lb 1.6 oz) 03/06/2020 11:00 AM JUKEBOX OPERATOR Height 182.9 cm (6') 03/06/2020 11:00 AM JUKEBOX OPERATOR Body Mass Index 27 03/06/2020 11:00 AM JUKEBOX OPERATOR Plan of Treatment Health Maintenance Due Date Last Done Comments COLON CANCER SCREENING COLONOSCOPY 1950 PNEUMOCOCCAL 65+ YRS (2 of 2 - 2017 11/30/2017, 11/30, PPSV23) 07/22/2017 MEDICARE ANNUAL WELLNESS (YEAR 2 or 03/31/2018 FIRST YEAR if no IPPE) DEPRESSION SCREENING (12+) 03/30/2019 INFLUENZA VACCINE (#1) 2019 12/11/2017, 08/16/2015, 12/14/2014 Implants Implanted Type Area Sueding Machine Tender Device Shelf Model / Identifier Expiration Date Ser ial / Lot Stent Bili Duodenal [id number] - [id number] Stents-Pe [employer]:ENDO 11/02/2019 [id number] / Implanted: Qty: 1 on 03/24/2018 by Chuckie Aguilar at [facility] ripheral / Description:10f x 5cm Grft [place] Mrtrstm 1000mg [id number] Tissue Right: ACELL I NC 12/28/2019 [id number] / Implanted: Qty: 1 on 04/30/2018 by Lyndsay Villalobos MD at [facility] Graft/Substitute Abdomen [id number] / [id number] Procedures Procedure Name Priority Date/Time Associated Comments Diagnosis REPORT OF PROCEDURE 03/06/2020 11:59 - ENDOSCOPY URL AM JUKEBOX OPERATOR UPPER 03/06/2020 11:32 Dysphagia, ENDOSCOPY,BIOPSY AM JUKEBOX OPERATOR unspecified typ e Esophageal stenosis UPPER 03/06/2020 11:32 Dysphagia, ENDOSCOPY,DILATATION AM JUKEBOX OPERATOR unspecified type Esophageal stenosis PT/APTT STAT 03/06/2020 11:12 Results for this AM JUKEBOX OPERATOR procedure are i n the results section. REPORT OF PROCEDURE 02/14/2020 1:44 - ENDOSCOPY URL PM JUKEBOX OPERATOR TISSUE EXAM AP Routine 02/14/2020 1:11 Results for this PM JUKEBOX OPERATOR procedure are i n the results section. UPPER 02/14/2020 12:47 Dysphagia, ENDOSCOPY,BIOPSY PM JUKEBOX OPERATOR unspecified typ e Regurgitation of food Esophageal stenosis PROTHROMBIN TIME/INR STAT 02/14/2020 11:23 Res ults for this AM JUKEBOX OPERATOR procedure are i n the results section. REPORT OF PROCEDURE 01/20/2020 4:14 - ENDOSCOPY URL PM CDT UPPER 01/20/2020 2:47 Dysphagia, ENDOSCOPY,DILATATION PM CDT unspecified type Regurgitation of food Esophageal stenosis PT/APTT STAT 01/20/2020 12:40 Results for this PM CDT procedure are i n the results section. after 03/08/2019 Results REPORT OF PROCEDURE - ENDOSCOPY URL (03/06/2020 11:59 AM JUKEBOX OPERATOR) Narrative Performed At This result has an attachment that is no t available. PT/aPTT (03/06/2020 11:12 AM JUKEBOX OPERATOR)Only the most recent of2 resultswithin the time period is included. Pathologist Sig nature Protime 21.1 (H) 11.9 - 14.2 seconds [facility] INR 1.88 <=5.90 [facility] PTT 46.1 (H) 22.5 - 36.0 seconds [facility] Specimen Blood Narrative Performed At Effective 08/25/2018: PT Reference Range [facility] Change New: 11.9-14.2 Previous: 11.7-14.7 RECOMMENDED COUMADIN/WARFARIN INR THERAPY RANGES STANDARD DOSE: 2.0-3.0 Includes: PROPHYLAXIS for venous thrombosis, systemic embolization; TREATMENT for venous thrombosis and/or pulmonary embolus. HIGH RISK: Target INR is 2.5-3.5 for patients wiht mechanical heart valves. Performing Organization Address City/State/Zipcode Phone Number [facility] [address] [place] [address] CENTER REPORT OF PROCEDURE - ENDOSCOPY URL (02/14/2020 1:44 PM JUKEBOX OPERATOR) Narrative Performed At This result has an attachment that is no t available. Tissue Exam (02/14/2020 1:11 PM JUKEBOX OPERATOR) Case Report Surgical Pathology Report Case: [id number] [facility] Authorizing Provider: Chuckie Delong i Collected: 02/14/2020 01:11 PM [facility] Ordering Location: [facility] Endoscopy Received: 02/14/2020 02:29 PM MEDICAL CENTER Services Pathologist: Ayaka Aviles MD Specimen: Biopsy, Esoph zuleyka, at 43 DIAGNOSIS A. ESOPHAGUS, AT 41, BIOPSY: [facility] Electronically - COLUMNAR MUCOSA WITH ACUTE AND CHRONIC INF LAMMATION, GRANULATION [facility] signed by Stefan, TISSUE AND REACTIVE CHANGES. [facility] MD Ayaka on - SQUAMOUS EPITHELIUM WITH NO SIGNIFICANT DIAGNOST IC ALTERATION. 02/16/2020 at 2:30 - NEGATIVE FOR SIGNIFICANT INTRA-EPITHELIAL EOSINO PHILS. PM - NEGATIVE FOR SPECIALIZED METAPLASTIC EPITHELIUM. - NEGATIVE FOR DYSPLASIA OR MALIGNANCY. Signing Pathologist Direct Phone Line: CPT Code(s) 64553, [id number], [id number], [facility] [id number] [facility] H[facility]ORY Dysphagia [facility] SPECIMEN SOURCE Esophagus biopsy [facility] GROSS DESCRIPTION Received in formalin [facility] labeled with the [facility] patient's name, accession MEDICAL CENTER number and "esophagus biopsy at 41" are four lainez-pink tissue fragments measuring up to 0.2 cm in greatest dimension, which are filtered and submitted in toto in A1. PA/ew MICROSCOPIC Performed. [facility] DESCRIPTION [facility] SPECIAL STUDIES The interpretation of this c ase included the use of immunohistochemistry or special stains. [facility] HSV1, HSV2: negative [facility] GMS: negative [facility] Control Slides Examined: In -house known positive controls were evaluated along with the test tissue. These control slides run alongside of the patients sample show appropriate staining. Internal posit andry and negative controls when available are evaluated Immunohistochemistry cori saucedo testing was performed at [facility], Pathology Laboratory where it was developed and its performance characteristics were determined. It has not be en cleared or approved by [facility] U.S. Food and Drug Administration. The FDA has determined that such clearance or approval is not necessary. The test is used for clinical purposes. It should not be regarde d as investigational or for research. This laboratory is certified under the Clinical Laboratory Improvement Amendments of 1988 (CLIA-88) as qualified to perform high complexity clinical laboratory testing. Gross assessment [facility] performed at [facility], [address] [place] [id number], Technical [facility] component was [facility] performed at [facility], [address] [place] [phone], Professional [facility] component was [facility] performed at [facility], [address] [place] [address], Specimen Tissue - Biopsy, Esophagus Performing Organization Address City/State/Zipcode Phone Number [address] [address] [place] Prothrombin time/INR (02/14/2020 11:23 AM JUKEBOX OPERATOR) Pathologist Sig nature Protime 23.2 (H) 11.9 - 14.2 seconds [facility] INR 2.12 <=5.90 [facility] Specimen Blood Narrative Performed At Effective 08/25/2018: PT Reference Range [facility] Change New: 11.9-14.2 Previous: 11.7-14.7 RECOMMENDED COUMADIN/WARFARIN INR THERAPY RANGES STANDARD DOSE: 2.0-3.0 Includes: PROPHYLAXIS for venous thrombosis, systemic embolization; TREATMENT for venous thrombosis and/or pulmonary embolus. HIGH RISK: Target INR is 2.5-3.5 for patients wiht mechanical heart valves. Performing Organization Address City/State/Zipcode Phone Number [facility] [address], [place] [id number] CENTER REPORT OF PROCEDURE - ENDOSCOPY URL (01/20/2020 4:14 PM CDT) Narrative Performed At This result has an attachment that is no t available. after 03/08/2019 Insurance Payer Benefit Plan / Subscriber ID Effective Dates Phone Addre ss Type Group [facility] [id number] 2019-Present MEDICARE MGD CARE HMO Advance Directives For more information, please contact: [phone] Code Status Date Activated Date Inactivated Comments Full Code 04/26/2018 10:30 AM 01/20/2020 11:32 AM This code status was determined by: Patient Full Code 03/17/2018 10:30 PM 04/26/2018 9:55 AM This code status was determined by: Patient Full Code 02/11/2018 3:59 AM 03/17/2018 8:38 PM This code status was determined by: Patient
--- OUTSIDE RECORDS SUMMARY | 2020-03-08 13:16 | XMS REPORT | Continuity of Care Document ---
:1950 Author Organization [facility] t Address [address] [place] [address] Care Team Providers Name Role Phone Jennifer Kelsey Primary Care Physician Phuong Junior Attending Clinician Mode Florian MD Attending Clinician PHUONG JUNIOR Attending Clinician Unavailable Clare WESTON Attending Clinician Hali Shah DO Attending Clinician Cielo Alatorre MD Attending Clinician Thuy Junior MD Attending Clinician Lillian POSADAS Attending Clinician Unavailable WOO LAUREANO Attending Clinician Unavailable PORSHA Attending Clinician Unavailable PHUONG JUNIOR Admitting Clinician Unavailable Lillian POSADAS Admitting Clinician Unavailable WOO LAUREANO Admitting Clinician Unavailable PORSHA Admitting Clinician Unavailable Payers Payer Name Policy Type Policy Effective Date Expiration Date Sour ce Number [facility] [id number] [facility] - MEDICARE MGD 00:00:00 - [facility] MEDICARE [id number]/03/31 020-Present Problems Condition Condition Condition Status Onset Resolution Last Treating Co mments Source Name Details Category Date Date Treatment Clinician Date Abscess Abscess Disease Active [facility] - [facility]: [address] Wound Wound Disease Active [facility] infection infection 04-26 [facility] - 00:[facility]: Medical 00 Center Wound Wound Disease Active [facility] dehiscence dehiscence 04-26 Samaria kes - 00:00: Medical 00 Center Rectus Rectus Disease Active [facility] sheath sheath 03-30 [facility] - hematoma hematoma 00:00: Medica l 00 Center Urinary Urinary Disease Active [facility] retention retention 03-30 [facility] - 00:00: Medical 00 [place] Acute Acute Disease Active 2017-[address] [facility] hemorrhagi hemorrhagi 05-20 Samaria kes - c c 00:00: Medical cholecysti cholecysti 00 Ce nter tis tis S/P S/P Disease Active 2017-[address] [facility] cholecyste cholecyste 05-20 Samaria kes - ctomy ctomy 00:00: Medical 00 [place] Acute pain Acute pain Disease Active 2017-[address] 05-20 [facility] - 00:00: Medical 00 [place] Chronic Chronic Disease Active 2017-[address] [facility] diastolic diastolic 05-20 [facility] - heart heart 00:00: Medical failure failure 00 Center PUD PUD Disease Active 2017-[address] [facility] [address] (peptic (peptic 05-20 [facility] - ulcer ulcer 00:00: Medical disease) disease) 00 Center Elevated Elevated Disease Active 2017-03 [facility] IN[facility] 05-20 [facility] - (internati (internati 00:00: Me dical onal onal 00 Center normalized normalized ratio) due ratio) due to prior to prior anticoagul anticoagul ant ant medication medication ingestion ingestion Encephalop Encephalop Disease Active 2017-[address] athy athy 05-20 [facility] - 00:00: Medical 00 [place] Abdominal Abdominal Disease Active 2017-[address] [facility] pain pain 05-18 [facility] - 00:00: Medical 00 [place] Esophagiti Esophagiti Disease Active 2017-[address] s s 04-17 [facility] - determined determined 00:00: Me dical by by 00 Center endoscopy endoscopy Acute GI Acute GI Disease Active 2017-[facility] bleeding bleeding 04-17 [facility] - 00:[facility]: Medical 00 [place] Valvular Valvular Disease Active 2017-03 [facility] heart heart 04-17 [facility] - disease disease 00:00: Medical 00 [place] Physical Physical Disease Active 2017-03 [facility] deconditio deconditio 04-17 Samaria kes - rick rick 00:00: Medical 00 [place] Hypertensi Hypertensi Disease Active 2017-[address] on on 04-17 [facility] - 00:00: Medical 00 Center Constipati Constipati Disease Active 2017-[address] on on 04-17 [facility] - 00:[facility]: Medical 00 Center Esophageal Esophageal Disease Active 2017-[address] ulcer with ulcer with 1-15 Samaria kes - bleeding bleeding 00:00: Medica l 00 Center Seizure Seizure Disease Active 2017-[address] [facility] disorder disorder 15 [facility] - 00:00: Medical 00 [place] H/O aortic H/O aortic Disease Active 2017-[address] valve valve 15 [facility] - replacemen replacemen 00:00: Me dical t t 00 [place] Benign Benign Disease Active 2017-[address] [facility] essential essential -15 [facility] - HTN HTN 00:00: Medical 00 [place] HLD HLD Disease Active 2017-[address] [facility] (hyperlipi (hyperlipi -15 Samaria kes - demia) demia) 00:00: Medical 00 [place] Acute Acute Disease Active 2017-[address] [facility] blood loss blood loss 1-15 Samaria kes - anemia anemia 00:00: Medical 00 [place] Protein-ca Protein-ca Disease Active 2017-[address] primo primo -15 [facility] - malnutriti malnutriti 00:00: Me dical on, on, 00 Center moderate moderate Pain, Pain, Diagnosis Active [facility] joint, joint, [facility] - shoulder, shoulder, Inocente eleno right right l Outpati ent Clinics Subacromia Subacromia Diagnosis Active [facility] bursitis l bursitis Samaria kes - of right of right Memori a shoulder shoulder l joint joint Outpati ent Clinics Cervicalgi Cervicalgi Diagnosis Active [facility] Clinics Allergies, Adverse Reactions, Alerts Allergy Allergy Status Severity Reaction(s) Onset Inactive Treating Comm ents Source Name Type Date Date Clinician Levetira Drug Active Other (See 2017-[address] cetam Allergy Comments) 04-13 [facility] - 00:00: Medical 00 [place] Family History Family Member Diagnosis Comments Start Date Stop Date Source Natural father No Known Problem [facility] Natural mother Hyperlipidemia [facility] Social History Social Habit Start Date Stop Date Quantity Comments Source History SDOH [facility] - Alcohol Std Drinks Medica l Center History SDOH [facility] - Alcohol Binge Medical [facility] [facility] Sex Assigned At [facility] to [facility] Med[facility] l [place] Tobacco use and 2020-03-07 2020-03-07 Never used [facility] vivien - exposure 00:00:00 00:00:00 [facility] Alcohol intake 2020-03-07 2020-03-07 [facility]00 non-drinker of Medical Ce nter alcohol (finding) History SDOH 2018-02-11 2018-02-11 [facility] Frequency 00:00:00 00:00:00 [facility] Smoking Status Start Date Stop Date Source Never smoker [facility] edical [place] Medications Ordered Filled Start Stop Current Ordering Indication Dosage Frequency Signature Comments Components Source Medication Medication Date Date Medication? Clinician (SIG) Name Name lamoTRIgine 2019-03 Yes complex-par 150mg Q.5D Take [address] (LAMICTAL) 2-08 tial mg by [facility] - 200 MG 13:33: epilepsy mouth 2 Medi mary tablet 34 (two) Center times daily . lacosamide 2019-03 Yes 200mg Q.5D Take [address] 200 mg Tab 2-08 mg by [facility] - 13:33: mouth 2 Medical 34 (two) Center times daily . cyanocobala 2019-03 Yes 1200ug QD Take 1,[address] min 2-08 mcg by [facility] - (VITAMIN 13:33: mouth Medical B-12) 1000 34 daily. [place] MCG tablet thiamine 2019-03 Yes 100mg QD Take [address] (VITAMIN 2-08 mg by [facility] - B-1) 100 MG 13:33: mouth Medic al tablet 34 daily. [place] valsartan 2019-03 Yes 80mg QD Take [address] (DIOVAN) 80 2-08 by mouth Luke [facility] - MG tablet 13:33: daily . Medic al 34 [place] ascorbic 2019-03 Yes 500mg QD Take [address] acid, 2-08 mg by [facility] - vitamin C, 13:33: mouth Medica l (ASCORBIC 34 daily. [place] ACID WITH OSIEL HIPS) 500 MG tablet atorvastati 2019-03 Yes 40mg QD Take [address] n (LIPITOR) 2-08 by mouth Luke [facility] - 40 MG 13:33: daily. Medical tablet 34 [place] dexlansopra 2019-03 Yes 60mg QD Take [address] zole 60 mg 2-08 by mouth [facility] - capsule 13:33: nightly . Medic al 34 Center pantoprazol 2019-03 Yes 40mg QD Take [address] [facility] e 2-08 by mouth [facility] - (PROTONIX) 13:33: daily. Medic al 40 MG 34 Center tablet warfarin 2019-03 Yes 1mg QD Take [address] (COUMADIN, 2-08 by mouth [facility] - JANTOVEN) 1 13:33: daily. Medi mary MG tablet 34 Center enoxaparin 2019-03 Yes Inject [facility] (LOVENOX) 2-08 subcutaneo Luke s - 80 mg/0.8 13:33: usly every Me dical mL Syrg 34 12 Center (twelve) hours. gabapentin 2019-03 Yes 600mg Q.5D Take [address] (NEURONTIN) 2-08 mg by [facility] - 600 MG 13:33: mouth 2 Medical tablet 34 (two) Center times daily. loratadine 2019-03 Yes 10mg QD Take [address] (CLARITIN) 2-08 by mouth [facility] - 10 mg 13:33: daily. Medical tablet 34 [place] cholecalcif 2019-03 Yes 5000U QD Take 5,[address] murray, 2-08 Units by [facility] - vitamin D3, 13:33: mouth Medic al (Vitamin 34 daily. [place] D3) 125 mcg (5,000 unit) Tab Lactobac 2019-03 Yes QD Take by [facility] no.41/Bifid 2-08 mouth [facility] - obact no.7 13:33: daily. Medic al (PROBIOTIC- 34 Center 10 ORAL) coenzyme 2019-03 2020- No 200mg QD Take [address] Q10 200 mg 0-21 10-21 mg by [facility] - capsule 15:53: 00:00 mouth Medical 26 :00 daily. [place] warfarin 2020- No 1mg QD Take [address] [address] (COUMADIN, 7- 07-24 by mouth Luke s - JANTOVEN) 1 13:22: 13:22 daily. Med ical MG tablet 53 :53 [place] loratadine 2019- No 10mg QD Take [address] (CLARITIN) 7- 07-24 by mouth [facility] - 10 mg 13:22: 13:22 daily. Medical tablet 53 :53 [place] ascorbic 2019- No 500mg QD Take [address] acid, 10-20-24 mg by [facility] - vitamin C, 13:22: 13:22 mouth Medic al (ASCORBIC 53 :53 daily. [place] ACID WITH OSIEL HIPS) 500 MG tablet coenzyme 2019- No 100mg QD Take [address] Q10 100 mg 10-20-24 mg by [facility] - capsule 13:22: 13:22 mouth Medical 53 :53 daily. [place] atorvastati 2019- No 40mg QD Take [address] n (LIPITOR) 10-20-24 by mouth Makenzie es - 40 MG 13:22: 13:22 daily. Medical tablet 53 :53 [place] dexlansopra 2019- No 60mg QD Take [address] zole 60 mg 10-20- by mouth Luke s - capsule 13:22: 13:22 daily. Medical 53 :53 [place] pantoprazol No 40mg QD Take [address] [facility] e 10-20 by mouth [facility] - (PROTONIX) 13:22: 13:22 daily. Medi mary 40 MG 53 :53 Center tablet ascorbic 2019- No 1000mg QD Take [address] acid, 04-30 tablet [facility] - vitamin C, 00:00: 23:59 (1,000 mg M edical (VITAMIN C) 00 :00 total) by [facility] ter 1000 MG mouth tablet daily. acetaminoph 2019- No 650mg Take [address] en 04-30 tablets [facility]ukes - (TYLENOL) 00:00: 23:59 (650 mg Medi mary 325 MG 00 :00 total) by Center tablet mouth every 6 (six) hours as needed for Pain for up to 360 days. Gabapentin Gabapentin Yes David TAKE [address] [facility] [place] TABLET BY [facility] - MOUTH [facility] TWICE A l DAY [facility] Loratadine Loratadine Yes David TAKE [address] [facility] [facility] [place] TABLET BY [facility] - MOUTH [facility] EVERY DAY l [facility] Atorvastati Atorvastati Yes David TAKE [address] [facility] n Calcium n Calcium [place] TABLET BY [facility]ukes - MOUTH Memoria EVERY DAY [facility] ent Clinics Lamotrigine Lamotrigine Yes David TAKE [address] [facility] [address] [place] TABLET BY [facility]ukes - MOUTH Memoria EVERY DAY l AT NIGHT [facility] Valsartan Valsartan Yes David TAKE [address] [facility] [place] TABLET BY [facility] - MOUTH Memoria EVERY DAY l [facility] Furosemide Furosemide Yes David TAKE [address] [facility] [place] TABLET BY [facility] - MOUTH Memoria EVERY DAY l [facility] ent Clinics Levothyroxi Levothyroxi Yes David TAKE [address] [facility] ne Sodium ne Sodium [place] TABLET BY [facility] - MOUTH Memoria EVERY DAY l [facility] Pantoprazol Pantoprazol Yes David TAKE [address] [facility] e Sodium e Sodium [place] TABLET BY Samaria kes - MOUTH Memoria EVERY DAY l IN THE [facility] MORNING ent Clinics Tramadol Tramadol Yes David (Schedule [facility] HCl HCl [place] IV Drug) [facility]ukes - TAKE 1 Memoria TABLET BY l MOUTH [facility] THREE ent TIMES A Clinics DAY NEEDED Warfarin Warfarin Yes David TAKE [address] Sodium Sodium [place] TABLET BY [facility]ukes - ORAL ROUTE Memoria EVERY DAY l ON THU [facility] Thu ent Clinics Diclofenac Diclofenac Yes David APPLY [address] [facility] Sodium Sodium [place] GRAMS TO Lukes - AFFECTED Memoria AREA TWICE l A DAY [facility] ent Clinics Hydrocodone Hydrocodone Yes David (Schedule [facility] -Acetaminop -Acetaminop [place] II Drug) Lukes - hen hen TAKE 1 Memoria TABLET BY l MOUTH [facility] TWICE A ent DAY Clinics Vital Signs Vital Name Observation Time Observation Value Comments Source Systolic blood 2020-03-06 12:50:00 170 mm[Hg] [facility] Diastolic blood 2020-03-06 12:50:00 72 mm[Hg] [facility] rate 2020-03-06 12:50:00 54 /min [facility] Respiratory rate 2020-03-06 12:50:00 27 /min [facility] Oxygen saturation in 2020-03-06 12:50:00 100 /min [facility] Arterial blood by Medical Ce jloene Pulse oximetry Body temperature 2020-03-06 12:05:00 36.83 Josi [facility] Body height 2020-03-06 11:00:00 182.9 cm [facility] Body weight 2020-03-06 11:00:00 90.311 kg [facility] BMI 2020-03-06 11:00:00 27.00 kg/m2 [facility] Procedures Procedure Date / Time Performed Performing Clinician [facility] e REPORT OF PROCEDURE - 2020-03-06 11:59:21 Lauren, [facility] ENDOSCOPY [facility] UPPER 2020-03-06 11:32:00 Lauern, [facility] ENDOSCOPY,DILATATION Medical [address] UPPER ENDOSCOPY,BIOPSY 2020-03-06 11:32:00 Lauren, [facility] PT/APTT 2020-03-06 11:12:00 Maren Florian [facility] REPORT OF PROCEDURE - 2020-02-14 13:44:25 Lauren, [facility] ENDOSCOPY [facility] TISSUE EXAM 2020-02-14 13:11:00 Lauren, [facility] UPPER ENDOSCOPY,BIOPSY 2020-02-14 12:47:00 Lauren, [facility] PROTHROMBIN TIME/INR 2020-02-14 11:23:00 Audra Sparks [facility] REPORT OF PROCEDURE - 2020-01-20 16:14:13 Lauren, [facility] ENDOSCOPY [facility] UPPER 2020-01-20 14:47:00 Lauren, [facility] ENDOSCOPY,DILATATION Medical [facility] ter PT/APTT 2020-01-20 12:40:00 Lise Alatorre [facility] Plan of Care Planned Activity Planned Date Details Comments Source Future Scheduled 2019-11-29 INFLUENZA VACCINE (#1) [facility] - Test 00:00:00 [code = INFLUENZA Medical Ce nter VACCINE (#1)] Future Scheduled 2019-03-[address] [facility] - Test 00:00:00 (12+) [code = Medical Center DEPRESSION SCREENING (12+)] Future Scheduled 2018-03-31 MEDICARE ANNUAL [facility] St [facility] - Test 00:00:00 WELLNESS (YEAR 2 or Medical Center FIRST YEAR if no IPPE) [code = MEDICARE ANNUAL WELLNESS (YEAR 2 or FIRST YEAR if no IPPE)] Future Scheduled 2017 PNEUMOCOCCAL 65+ YRS RONDA Clement - Test 00:00:00 (2 of 2 - PPSV23) Medical Ce nter [code = PNEUMOCOCCAL 65+ YRS (2 of 2 - PPSV23)] Future Scheduled 1950 Screening for RONDA Gan es - Test 00:00:00 malignant neoplasm of Medica l Center colon (procedure) [code = 091902303] Encounters Start End Encounter Admission Attending Care Care Encounter Source Date/Time Date/Time Type Type Clinicians Facility Department ID 2019-09-22 2019-09-22 Office KENDRA Junior [id number] 09:37:45 16:43:25 Visit Chuckie M. AMBULATOR [id number] Y [id number] 2019-08-02 2019-08-02 [facility] [id number] 09:00:00 09:00:00 [facility] ent Clinics Results Test Description Test Time Test Comments Results Result Comments Source PT/aPTT 2020-03-06 11:41:00 Test Item Value Reference Range Interpretation Comme nts Protime (test code = 5902-2) 21.1 11.9- 14.2 seconds H INR (test code = 6301-6) 1.88 <=5.90 PTT (test code = 09520-0) 46.1 22.5- 36.0 seconds H AMBIKA (test code = AMBIKA) Effective 08/25/2018: PT Reference Range ChangeNew: 11.9-14.2 Previous: 11.7-14.7 RECOMMENDED COUMADIN/WARFARIN INR THERAPY RANGESSTANDARD DOSE: 2.0-3.0 Includes: PROPHYLAXIS for venous thrombosis, systemic embolization; TREATMENT for venous thrombosis and/or pulmonary embolus.HIGH RISK: Target INR is 2.5-3.5 for patients wiht mechanical heart valves. Lab Interpretation (test code = Abnormal 04277-1) [id number] 11:41:00 Test Item Value Reference Range Interpretation Comments PROTIME (BEAKER) (test code = 21.1 seconds 11.9-14.2 H 759) INR (BEAKER) (test code = 370) 1.88 <=5.90 PARTIAL THROMBOPLASTIN TIME 46.1 seconds 22.5-36.0 H (BEAKER) (test code = 760) Effective 08/25/2018: PT Reference Range ChangeNew: 11.9-14.2 Previous: 11.7- 14.7RECOMMENDED COUMADIN/WARFARIN INR THERAPY RANGESSTANDARD DOSE: 2.0-3.0 Includes: PROPHYLAXIS for venous thrombosis, systemic embolization; TREATMENT for venous thrombosis and/or pulmonary embolus.HIGH RISK: Target INR is2.5-3.5 for patients wiht mechanical heart valves.Tissue [id number] 14:30:00 Test Item Value Reference Range Interpretation Comments Case Report (test code Surgical Pathology = 104) Report Case: [id number] Authorizing Provider: Chuckie Junior Collected: 02/14/2020 01:11 PM Ordering Location: [facility] Endoscopy Received: 02/14/2020 02:29 PM Services Pathologist: Ayaka Aviles MD Specimen: Biopsy, Esophagus, at 43 DIAGNOSIS (test code = w4olqDEdGCPmx2qlCKYpdH 3220) FuZzEwMzNcZnRuYmpcdWMx IHtccnRmMVxlcGljOTIwMF pxtkHrTYIypEGvW9Fbscll PHdqFR0kDS1joXmzeILhcG HfMITrQsSzp5nqb363rUTn u3jbATLIcbzheEy4cUgrV1 2zb6L7LfevS6ehXPRxNSwj fzDxzsE8IHZzlACkNYs4XX BpfmLckJlmgX7xWqPfIVzq GhPiTO7gFKXMGFhVT4GCWD GJVYC8PUggNizUVVPDJfmr BAGnUVPgWU5mB01MRM0KHN ZaXCVWJ2CLIGbGKXdePRPY NDMbSB7OBUMOGo2TSZSaWJ 0GTJTXQGQRHB4MCQYUKnHF VUxBVElPTiBccGFyICAgIC OjYHCTKKKRXOSiNO1EJDZN ACOBPIBYXXXCKZ6HLFJkSF rtFNHyWZTdDT9bQ9MYFQ1E VVMgRVBJVEhFTElVTSBXSV QFIA9WAVVCF00EGhyOSG7P JDYOJWrGD4RTAZZnFHvSAJ FULWmQWn6naFRxNOKtBPDm GJ0NM6NILJSAFQYOVwPAMD iMIQREU5HFTKWPNcSYBB0N LYqJHCFXVSAKQTCZW8fDT2 DRAZdWRqwiyR5pCF3lBOGp KL5SZ5GZDNJFPPYEFsOPNZ VDSUFMSVpFRCBNRVRBUExB R6XTXdGMDRlBBCQGAPNORd bnwD4rNUJdCZSzM9YnCR2n HmYYBOWREkGkGw9SJLRWB6 ERCEUASDIBUlZOLTwQQ15J SxJSRuruIDH9w0qnmZWmPR NzdGUxODAwMFxhbnNpXGRl VlnbufyeDKGwXBH9fpBnMC QtWQkxFZCmXRgbQo9yeVHv sDtsJlYuDYShj8suahRUlo ejzNw6d0qqOGJsVmU2gFGu RZtoU3jjsjSxuKNkINKgVZ l8hR87KLAbpM7ywELfENxb fwSzLcP5SFvhTPXfNzJ4GX FvxHGfBAPqJ2eeELRaGVgh PFUaNGfdmMVlEKQ8oFfaf4 Z3kDNimPHgyHbuMyAsRqAi IjAPq7CyDEp2iPzyE3YhPR EiJmY3qLYpHPPtJNokRETd UQDtybP7pV16DWodhhS6iY Pth2Ghv31mu166rG1mgVFg JBY2JMAsPMEldXOoSCWaUQ E6NQXrrIMcS1wfYGYgSM8r yttsQXbwDDbbEZNnlWF1MV JdyFQxL1NlKMOpPNwlUMUo bvw8JcTgGo4xsXYkzXhdOL feo5fqi2tvmIOfSna1FZHi MoYjIiiaDJwjl1Swn5ezTU Xrrb1uJDD9tXSaoGkil9K9 uUNeTOAddPGkGLDeEN4nwH VxMXMrmI8yzkezHGTiSjZi izjlISRrbOqtvgDgLa8yaO bwINM2BUkpX2arfV8lUlE6 IOlcE5dklG6qMBv7RUbgKV PliUF2ptG2MEUjfKYwV7Vu uX5hHJSiXV7eytb6l4laWC K3HWoaIEIpKkO1peF3AVNy yGIgKDOmuUtdDUcsv842WY X2ClEdHXRud4PyR2YbpNtd I81nuEinD50vAPErlTflfV 3ncLwhnG5fWeZmAaAqEQfb bDnsOE7mKSObM2qsgAHrYU RbFHZdM9vsRdFtyR1auLwc MXmjuuWkABRlYyn8JGEiaU SbLEAtUwu0JRRjFTKeS82i wmmbNNK1fC8pm7omj8AgUV upVTJ0GGHsc38yCHpveoT0 UWheNm5mVRKcSoDaOCqbPG J9fQ== CPT Code(s) (test code u4rmsZUbLQYrqTO2OsEuCF = 7794) Ymv8nmn4BuoHAtiPRyLLwy wLQqcoRlay04cYJ7jY50IR 1uKRTmJtV9DUTeffP3Dmf2 PQXkPWZvdKOgX219j4dvj5 lmusUxcEX5tQosGYBrLTBn YWluXGZzMjAgODgzMDUsID j1WaVmFOL8BDA0ERroOQfh MTJccGFyfQ== CLINICAL HISTORY (test l2sszEDmUJDabUE5KlNzFA code = 3356) Eov1rol8LzvOFzvYCmASns jZXstdAbcz46hLV8qJ65QV 9oAAXhOnW7KFLqcrL3Lby5 TXTkPYNhjFBtG064c3ykg4 ytcyCwlSY8jUpsDERyWOLt YWluXGZzMjAgRHlzcGhhZ2 lhXHBhcn0= SPECIMEN SOURCE (test k5cghDAwCDXziBX6QwDvEY code = 3377) Trb8eht3AmvGLodJVdCXxh cQHqbvPoxk96xXH1vH68ND 1yGMPaAdC6VSGtkaO2Xoj3 FSYrEZJhoVUpT525u4zyt1 ypmrXrhKJ1xUuzVAQgZUGm YWluXGZzMjAgRXNvcGhhZ3 LsHIWuw1HsySDvsUSmsX== GROSS DESCRIPTION (test e1upjTMrTMYgqGJ6BnRqHK code = 3366) Mau6hvt3CkdFSzrZYzGJjj xUYxzxHysc76xAX5tJ36MO 8jPAXiIsT4JKFmcwX8Cbk9 ZQXlCJQpsFIsW123t6pgp5 vlhyOndEG2zYzsNUFhGNPx SAvbIXPjIoYaZiWzTJz5ZZ LqnF0dBv3wyEJraS0abHKv UKcwEZK0vJDsCWGqFANbGJ FfER76C0RifvXzMRxeFEZw FNWntE8rLA00uMPgswKjvc XwAcRac9UlDWb7lfEzlT5i e6elBCKnXZFrRLBeZHIko1 PxIKEhqn6fmL9jEVNge5A1 ZSBmcmFnbWVudHMgbWVhc3 KvaB4iRYXjUJMiEMQdIyWw bSBpbiBncmVhdGVzdCBkaW 1iyvNnc55nOYplnXSiRVTe VMXowIy6BXTmBTWptuFua7 YqvUp4kWWrQOdaDFKmpK2s bF8dAJNlWQLMI1E9XQpmCO J9 MICROSCOPIC DESCRIPTION c8okdLAyRNWkiZS0IvFcZO (test code = 3371) Rcb1plh1OjrBKnuLCbPJpd nCIkkgMvkn10sNX7hI11EU 5nWQWnGzR2FKMfylC3Fph8 UOSpOTMcjKZqZ584y2koo2 nwjtWtlQT3cUqpYLNtUFCl TMtqVKUfMvWrFHJdHv4qqU VkLlxwYXJ9 SPECIAL STUDIES (test d8vniAQnNETigRY2VlItIE code = 3376) Dhl9pgf0MphORskOEfWShr fIPukaHyhv85wEP3lC89DY 4zMEQwGbR6VQUawnR1Dtf4 BEDfLZYjbTLsG874DVLkAE AozRgapvg7uI28EKWdnX3k iJIgNOa1ECPhsuYwdUgvcV 4pCoIdJeXaOfRHoNYkuK18 VBAopcW8MVTds49ud4OafB qbuqWvXHQcMFipY3a5CMTm TCJhWTJ2a7Qsu9CymM0rvZ 6rgVlhjF3ehAEcxGO7istb n7Igr4DmL5kmoHOmyXPhch KdDGAlnfMBQ8ZbFPYQF6Lg TyIhUYjppNi8BDywJZWvC3 8IWhHpJFdkcAz7LYsrCKNs L37wdAQnsWVIzOgxRRGsLB rxgNwmWPR0DVBRbl9la8Rr QENsyr35dtYcx2BayKn0LK Osb258du5kiyM7EYNcKYC8 JSn2TUPkVKEkhR7iGgR4nB DlLONgCUO0QGO0DQMzf9S8 EV4gSWOnMPFdQOWizhSgp2 rmj5ybMFStPIB7hrWtsG8t P4GdBWKyd2GojMugPJJeeL nsgcOhUAQwhZMlQESbyZ17 TIRyqLWnuHBePKSyFSN6OC ytkG1zVdKUocAeme4vdJNu d7HbgUp4QSKzfoIjjbNwGL IumiBaR33tpMYzzBDzx4fx biBhdmFpbGFibGUgYXJlIG N6NVx9ZHCbPLkiAEHtGEvp CRYqCP3tiJ7crQaqfP6kcC LoiJB4ttjenXOyiG1kI7Tw GVIgl5Ilrhgjd7PiQRCtoy Tisp0vPBItmTMCHKkfv4Sq M9QnYSc8x7NiiPguVCysQP m2UrXsFSSnfDAkaEAFJQ16 KXPrHSYrlDvbeU6bdITMRO QoldQ1n7A6VZjyUNDoXHz3 MCoaniZbDABecV6yPBDvDP 7jUUb4wkKgPRYic2IcUP4u OJWaoSZhGIW6AMTwq2JkM7 Mre8GjNFAnHQBkso4qucIz IdCOeHYiFYGbsx23ZMDmSS 0eW2beBTVmUDIamxYvcQPu l3DlZRBiyBW9aZCmEA6VBp ACd38xZJUqKPOApdNkEMZy gXhshEM3udV7aY8bQlTRsG SrEwAFXHsbgvSeEEWydc1j gfZuXWPnGDUiy7MvqOAgtH VtboFpO8Dvu8NeOPYtml81 UGcwiNDuik71KY3iE2Kkn4 NmdT4bIWzcHBNoz6PduPDf cXEsRJAkr5MbH1fywsswTS hxwXCuqK2xEJMyOKv7QTUq l7BoZVJzi2TdMmFrcpYsQF XhJNHyGYVjaD40NMF8bKpa tHgrqnYcVI0wYTObxoXdYT OqEMHagU7sZWnzkhAyUUAg huD2v4O7VCweEMPywhSpRu onBMT4vxMulyI7pQGwN9hl sisdHRlcZBAkl1MyqV1paA CWsOUdh9IvfOEftXGYsOJi KP4lrqJmNO6sSUA7DVhjCY XKRJAvSAdcYTHbXKP0ZObt ZgtzDKE4hyDhTHQzj0WiMK otG2vmO63sqQgtvUt4zCDx dZqfyWLbaHLjWWZqglM0u2 I4QLPyj8FyfbnqJOGaeu3= Gross assessment was [facility] performed at ([facility], = [id number]) Department of Pathology, [address] [place] [address], Technical component was [facility] performed at ([facility], = [id number]) Department of Pathology, [address] [place] [id number], Professional component [facility] was performed at ([facility], code = 2773) Department of Pathology, [address] [place] [address], [facility] [id number] 14:30:00Surgical Pathology Report Case: [id number] Authorizing Provider: Chuckie Junior Collected: 02/14/2020 01:11 PM Ordering Location: [facility] Endoscopy Received: 02/14/2020 02:29 PM Services Pathologist: Ayaka Aviles MD Specimen: Biopsy, Esophagus, at 41 A. ESOPHAGUS, AT 41, BIOPSY: - COLUMNAR MUCOSA WITH ACUTE AND CHRONIC INFLAMMATION, GRANULATION TISSUE AND REACTIVE CHANGES. - SQUAMOUS EPITHELIUM WITH NO SIGNIFICANT DIAGNOSTIC ALTERATION. - NEGATIVE FOR SIGNIFICANT INTRA-EPITHELIAL EOSINOPHILS. - NEGATIVE FOR SPECIALIZED METAPLASTIC EPITHELIUM.- NEGATIVE FOR DYSPLASIA OR MALIGNANCY. Signing Pathologist Direct Phone Line: [phone] signed by Ayaka Aviles MD on 02/16/2020 at 2:30 [id number], [id number] biopsy Received in formalin labeled with the patient's name, accession number and "esophagus biopsy at 41" are four lainez-pink tissue fragments measuring up to 0.2 cm in greatest dimension, which arefiltered and submitted in toto in A1. PA/ew Performed.The interpretation of this case included the use of immunohistochemistry or special stains.HSV1, HSV2: negativeGMS: negativeControl Slides Examined: In-house known positive controls were evaluated along with the test tissue. These control slides run alongside of the patients sample show appropriate staining. Internal positive and negative controls when available are evaluated Immunohistochemistry technical testing was performed at [facility], Pathology Laboratory where it was developed and its performance characteristics were determined. It has not been cleared or approved by the U.S. Food and Drug Administration. The FDA has determined that such clearance or approval is not necessary. The test is used for clinical purposes. It should not be regarded as investigational or for research. This laboratory is certified under the Clinical Laboratory Improvement Amendments of 1988 (CLIA-88) as qualified to perform high complexity clinical laboratory testing.[facility], Department of Pathology, [address] [place] [address], [facility], [facility], [address] [place] [address], [facility], [facility] of [facility], [address] [place] [address], Phbmjkbjmwe time/[id number] 11:45:00 Test Item Value Reference Range Interpretation Comments Protime (test code = 23.2 11.9- 14.2 H 5902-2) seconds INR (test code = 2.12 <=5.90 6301-6) AMBIKA (test code = AMBIKA) Effective 08/25/2018: PT Reference Range ChangeNew: 11.9-14.2 Previous: 11.7-14.7 RECOMMENDED COUMADIN/WARFARIN INR THERAPY RANGESSTANDARD DOSE: 2.0-3.0 Includes: PROPHYLAXIS for venous thrombosis, systemic embolization; TREATMENT for venous thrombosis and/or pulmonary embolus.HIGH RISK: Target INR is 2.5-3.5 for patients wiht mechanical heart valves. Lab Interpretation Abnormal (test code = 16275-6) [facility]/[id number] 11:45:00 Test Item Value Reference Range Interpretation Comments PROTIME (BEAKER) (test code = 23.2 seconds 11.9-14.2 H 759) INR (BEAKER) (test code = 370) 2.12 <=5.90 Effective 08/25/2018: PT Reference Range ChangeNew: 11.9-14.2 Previous: 11.7- 14.7RECOMMENDED COUMADIN/WARFARIN INR THERAPY RANGESSTANDARD DOSE: 2.0-3.0 Includes: PROPHYLAXIS for venous thrombosis, systemic embolization; TREATMENT for venous thrombosis and/or pulmonary embolus.HIGH RISK: Target INR is2.5-3.5 for patients wiht mechanical heart valves.PT/[id number] 13:03:00 Test Item Value Reference Range Interpretation Comments PROTIME (BEAKER) (test code = 26.0 seconds 11.9-14.2 H 759) INR (BEAKER) (test code = 370) 2.45 <=5.90 PARTIAL THROMBOPLASTIN TIME 50.8 seconds 22.5-36.0 H (BEAKER) (test code = 760) Effective 08/25/2018: PT Reference Range ChangeNew: 11.9-14.2 Previous: 11.7- 14.7RECOMMENDED COUMADIN/WARFARIN INR THERAPY RANGESSTANDARD DOSE: 2.0-3.0 Includes: PROPHYLAXIS for venous thrombosis, systemic embolization; TREATMENT for venous thrombosis and/or pulmonary embolus.HIGH RISK: Target INR is2.5-3.5 for patients wiht mechanical heart valves.ANAEROBIC [id number] 03:13:00 Test Item Value Reference Range Interpretation Comments CULTURE (BEAKER) (test No anaerobes isolated code = 1095) BLOOD [id number] 01:01:00 Test Item Value Reference Range Interpretation Comments CULTURE (BEAKER) (test No growth in 5 days code = 1095) BLOOD [id number] 19:01:00 Test Item Value Reference Range Interpretation Comments CULTURE (BEAKER) (test No growth in 5 days code = 1095) SURGICALLY OBTAINED CULTURE + GRAM [id number] 10:24:00 Test Item Value Reference Range Interpretation Comments CULTURE (BEAKER) (test KLEBSIELLA A 2+ Kl ebsiella code = 1095) SPECIES species Amikacin (test code = S 1) Ampicillin + Sulbactam S (test code = 6) Aztreonam (test code = S 32) Cefepime (test code = S 51) Cefoxitin (test code = S 68) Ceftazidime (test code S = 27) Ceftriaxone (test code S = 52) Ertapenem (test code = S 38) Gentamicin (test code = S 18) Levofloxacin (test code S = 22) Meropenem (test code = S 34) Nitrofurantoin (test S code = 23) Piperacillin + S Tazobactam (test code = 29) Tetracycline (test code S = 2) Tobramycin (test code = S 25) Trimethoprim + S Sulfamethoxazole (test code = 47) CULTURE (BEAKER) (test KLEBSIELLA A 2+ Kl ebsiella code = 1095) SPECIES species Amikacin (test code = S 1) Ampicillin + Sulbactam S (test code = 6) Aztreonam (test code = S 32) Cefepime (test code = S 51) Cefoxitin (test code = S 68) Ceftazidime (test code S = 27) Ceftriaxone (test code S = 52) Ertapenem (test code = S 38) Gentamicin (test code = S 18) Levofloxacin (test code S = 22) Meropenem (test code = S 34) Nitrofurantoin (test S code = 23) Piperacillin + S Tazobactam (test code = 29) Tetracycline (test code S = 2) Tobramycin (test code = S 25) Trimethoprim + S Sulfamethoxazole (test code = 47) GRAM STAIN RESULT <1+ WBCs (BEAKER) (test code = 1123) GRAM STAIN RESULT No organisms (BEAKER) (test code = seen [id number]) BASIC METABOLIC [id number] 05:29:00 Test Item Value Reference Range Interpretation Comments SODIUM (BEAKER) 141 meq/L 136-145 (test code = 381) POTASSIUM (BEAKER) 4.0 meq/L 3.5-5.1 Specimen slightly (test code = 379) hemolyzed CHLORIDE (BEAKER) 110 meq/L 98-107 H (test code = 382) CO2 (BEAKER) (test 24 meq/L 22-29 code = 355) BLOOD UREA NITROGEN 8 mg/dL 7-21 (BEAKER) (test code = 354) CREATININE (BEAKER) 0.74 mg/dL 0.57-1.25 Specimen slightly (test code = 358) hemolyzed GLUCOSE RANDOM 70 mg/dL 70-105 (BEAKER) (test code = 652) CALCIUM (BEAKER) 9.3 mg/dL 8.4-10.2 (test code = 697) EGFR (BEAKER) (test 106 mL/min/1.73 ESTIM ATED GFR IS code = 1092) sq m NOT ACCURATE CREATININE CLEARANCE IN PREDICTING GLOMERULAR FILTRATION RATE . ESTIMATED GFR I S NOT APPLICABLE FOR DIALYSIS PATIEN TS. PROTHROMBIN [id number] 05:20:00 Test Item Value Reference Range Interpretation Comments PROTIME (BEAKER) (test code = 24.9 seconds 11.7-14.7 H 759) INR (BEAKER) (test code = 370) 2.3 <=5.9 RECOMMENDED COUMADIN/WARFARIN INR THERAPY RANGESSTANDARD DOSE: 2.0 - 3.0 Includes: PROPHYLAXIS forvenous thrombosis, systemic embolization; TREATMENT for venous thrombosis and/or pulmonary embolus.HIGH RISK: Target INR is 2.5-3.5 for patients with mechanical heart valves.CBC (HEMOGRAM ONLY)2018-04-30 05:14:00 Test Item Value Reference Range Interpretation Comments WHITE BLOOD CELL COUNT (BEAKER) 7.6 K/ L 3.5-10.5 (test code = 775) RED BLOOD CELL COUNT (BEAKER) 3.23 M/ L 4.63-6.08 L (test code = 761) HEMOGLOBIN (BEAKER) (test code = 9.7 GM/DL 13.7-17.5 L 410) HEMATOCRIT (BEAKER) (test code = 31.2 % 40.1-51.0 L 411) MEAN CORPUSCULAR VOLUME (BEAKER) 96.6 fL 79.0-92.2 H (test code = 753) MEAN CORPUSCULAR HEMOGLOBIN 30.0 pg 25.7-32.2 (BEAKER) (test code = 751) MEAN CORPUSCULAR HEMOGLOBIN CONC 31.1 GM/DL 32.3-36.5 L (BEAKER) (test code = 752) RED CELL DISTRIBUTION WIDTH 15.5 % 11.6-14.4 H (BEAKER) (test code = 412) PLATELET COUNT (BEAKER) (test 373 K/CU MM 150-450 code = 756) MEAN PLATELET VOLUME (BEAKER) 9.4 fL 9.4-12.4 (test code = 754) NUCLEATED RED BLOOD CELLS 0 /100 WBC 0-0 (BEAKER) (test code = 413) FL, [id number] 15:36:00Reason for exam:->abnormal imagingFINAL REPORT Intraoperative fluoroscopy films performed by the referring physician. Number of images: 5Fluoroscopic time: 0.9 minutes The films were submitted to PACS postprocedure. The radiologist was not present at the time of examination. An interpretation was not requested.The submitted images are nondiagnostic without real-time visualization. Please refer to the performing physician's dictation for all details regarding the procedure including the submitted images. The radiologist did not perform fluoroscopy. Signed: Naomy Gunderson Verified Date/Time: 04/29/2018 15:36:30 Reading Location: [address] Consult Reading Room COMPREHENSIVE METABOLIC PANEL 2018-04-28 06:11:00 Test Item Value Reference Range Interpretation Comments TOTAL PROTEIN 6.5 gm/dL 6.0-8.3 (BEAKER) (test code = 770) ALBUMIN (BEAKER) 3.0 g/dL 3.5-5.0 L (test code = 1145) ALKALINE PHOSPHATASE 89 U/L 40-150 (BEAKER) (test code = 346) BILIRUBIN TOTAL 0.5 mg/dL 0.2-1.2 (BEAKER) (test code = 377) SODIUM (BEAKER) (test 138 meq/L 136-145 code = 381) POTASSIUM (BEAKER) 3.8 meq/L 3.5-5.1 (test code = 379) CHLORIDE (BEAKER) 110 meq/L 98-107 H (test code = 382) CO2 (BEAKER) (test 23 meq/L 22-29 code = 355) BLOOD UREA NITROGEN 8 mg/dL 7-21 (BEAKER) (test code = 354) CREATININE (BEAKER) 0.66 mg/dL 0.57-1.25 (test code = 358) GLUCOSE RANDOM 116 mg/dL 70-105 H (BEAKER) (test code = 652) CALCIUM (BEAKER) 9.3 mg/dL 8.4-10.2 (test code = 697) AST (SGOT) (BEAKER) 13 U/L 5-34 (test code = 353) ALT (SGPT) (BEAKER) 7 U/L 6-55 (test code = 347) EGFR (BEAKER) (test 121 ESTIMATE D GFR IS code = 1092) mL/min/1.73 sq NOT ACCURA TE m CREATININE CLEARANCE IN PREDICTING GLOMERULAR FILTRATION RATE . ESTIMATED GFR I S NOT APPLICABLE FOR DIALYSIS PATIEN TS. PROTHROMBIN [id number] 05:50:00 Test Item Value Reference Range Interpretation Comments PROTIME (BEAKER) (test code = 21.8 seconds 11.7-14.7 H 759) INR (BEAKER) (test code = 370) 1.9 <=5.9 RECOMMENDED COUMADIN/WARFARIN INR THERAPY RANGESSTANDARD DOSE: 2.0 - 3.0 Includes: PROPHYLAXIS forvenous thrombosis, systemic embolization; TREATMENT for venous thrombosis and/or pulmonary embolus.HIGH RISK: Target INR is 2.5-3.5 for patients with mechanical heart valves.CBC W/PLT COUNT & AUTO DIFFERENTIAL 2018-04-28 05:46:00 Test Item Value Reference Range Interpretation Comments WHITE BLOOD CELL COUNT (BEAKER) 5.7 K/ L 3.5-10.5 (test code = 775) RED BLOOD CELL COUNT (BEAKER) 3.14 M/ L 4.63-6.08 L (test code = 761) HEMOGLOBIN (BEAKER) (test code = 9.6 GM/DL 13.7-17.5 L 410) HEMATOCRIT (BEAKER) (test code = 30.0 % 40.1-51.0 L 411) MEAN CORPUSCULAR VOLUME (BEAKER) 95.5 fL 79.0-92.2 H (test code = 753) MEAN CORPUSCULAR HEMOGLOBIN 30.6 pg 25.7-32.2 (BEAKER) (test code = 751) MEAN CORPUSCULAR HEMOGLOBIN CONC 32.0 GM/DL 32.3-36.5 L (BEAKER) (test code = 752) RED CELL DISTRIBUTION WIDTH 15.0 % 11.6-14.4 H (BEAKER) (test code = 412) PLATELET COUNT (BEAKER) (test 344 K/CU MM 150-450 code = 756) MEAN PLATELET VOLUME (BEAKER) 9.5 fL 9.4-12.4 (test code = 754) NUCLEATED RED BLOOD CELLS 0 /100 WBC 0-0 (BEAKER) (test code = 413) NEUTROPHILS RELATIVE PERCENT 55 % (BEAKER) (test code = 429) LYMPHOCYTES RELATIVE PERCENT 38 % (BEAKER) (test code = 430) MONOCYTES RELATIVE PERCENT 7 % (BEAKER) (test code = 431) EOSINOPHILS RELATIVE PERCENT 0 % (BEAKER) (test code = 432) BASOPHILS RELATIVE PERCENT 0 % (BEAKER) (test code = 437) NEUTROPHILS ABSOLUTE COUNT 3.13 K/ L 1.78-5.38 (BEAKER) (test code = 670) LYMPHOCYTES ABSOLUTE COUNT 2.15 K/ L 1.32-3.57 (BEAKER) (test code = 414) MONOCYTES ABSOLUTE COUNT (BEAKER) 0.38 K/ L 0.30-0.82 (test code = 415) EOSINOPHILS ABSOLUTE COUNT 0.01 K/ L 0.04-0.54 L (BEAKER) (test code = 416) BASOPHILS ABSOLUTE COUNT (BEAKER) 0.01 K/ L 0.01-0.08 (test code = 417) IMMATURE GRANULOCYTES-RELATIVE 0 % 0-1 PERCENT (BEAKER) (test code = 2801) PROTHROMBIN TIME/[id number] 18:49:00 Test Item Value Reference Range Interpretation Comments PROTIME (BEAKER) (test code = 20.6 seconds 11.7-14.7 H 759) INR (BEAKER) (test code = 370) 1.8 <=5.9 RECOMMENDED COUMADIN/WARFARIN INR THERAPY RANGESSTANDARD DOSE: 2.0 - 3.0 Includes: PROPHYLAXIS forvenous thrombosis, systemic embolization; TREATMENT for venous thrombosis and/or pulmonary embolus.HIGH RISK: Target INR is 2.5-3.5 for patients with mechanical heart valves.CT, [id number] 20:18:00Possible wound infection vs dehiscence, ANANTH drain now communicating with abd woundFINAL REPORT EXAMINATION: CT SCAN OF THE ABDOMEN AND PELVIS CLINICAL HISTORY:Abdominal pain. Postoperative infection. COMPARISON EXAM: 03/22/2018. TECHNIQUE: Axial tomographic images were acquired through the abdomen and pelvis following the administration of IV and oral contrast. Post processing was subsequently performed and coronal and sagittal reformatted images were created and reviewed. The exam was performed according to our departmental dose optimization program which includes automated exposure control, adjustment of the mA and/or kV according to patient's size and/or use of iterative reconstructive technique. FINDINGS: There is a small simple appearing right-sided pleural effusion, similar to previous. Consolidation at the right lung base is favored to reflect associated passive atelectasis. Previously identified left-sided pleural effusion has resolved. The heart is mildly prominent but stable. No evidence of a pericardial effusion. There is mild nonspecific wall thickening of the distal esophagus. Although the finding may reflect incomplete distention, anesophagitis should also be considered. Underlying pathologic and cannot be excluded. A large (20 x 3x 16 cm) fluid collection is again noted within the right anterior abdominal wall including involvement of the rectus sheath musculature. As before, the associated intraluminal fluid is complex suggesting a component of hemorrhage. However, the adjacent skin is now interrupted concerning for postoperative change and/or skin breakdown with communication with the fluid. The gas collections within the fl uid may be related to the same process. However, an infected fluid collection/hematoma should also be considered. There is infiltration of the adjacent subcutaneous tissues with trace fluid as well asskin thickening. Findings may be reactive or secondary to associated regional infection with a cellulitis. A small volume of fluid is again noted within the abdomen adjacent to the liver and in the region of the gallbladder fossa. Although the sterility of the fluid is indeterminate, no definitive associated organization/rim enhancement/gas to suggest discrete intra-abdominal abscess formation / drai nable collection. As before, a surgical drain has been placed from right lateral abdominal wall approach with the catheter extending into the subhepatic space near the cholecystectomy site. Of note, the tip of the drain now extends into the abdominal wall/fluid collection detailed above. The liver demonstrates relatively homogeneous contrast-enhancement. As before, the gallbladder is absent. The common bile duct is now dilated measuring up to 1.5 cm. There is minimal intrahepatic biliary dilatation. A common bile duct stent has been placed in the interval which extends from the distal one third ofthe common bile duct to the junction of the descending and transverse segments of the duodenum. Correlation with patient's liver function studies recommended given the new biliary dilatation detailed above. However, a component of the biliary dilatation may reflect increased capacitance of the biliarysystem following cholecystectomy. The pancreas is atrophic with fatty infiltration. No definite findings to suggest acute pancreatitis. A small stable 1.6 cm right adrenal nodule is again noted. Left adrenal gland is grossly unremarkable. No evidence of renal obstruction or nephrolithiasis. Small stable bilateral renal nodules are again noted with imaging characteristics which favor cysts. The stomach is decompressed the loops of small bowel are normal in caliber. The oral contrast has migrated intothe distal small bowel. The appendix is unremarkable. A large volume of inspissated stool is noted throughout the colon compatible with a component of dysmotility/constipation. Colonic diverticulosis is noted without evidence of diverticulitis. The aorta is normal in caliber. Contrast also opacifies the portal venous system, mesenteric vessels, renal vessels, iliac arteries and the visualized femoral arteries. Calcific atherosclerotic changes are noted involving the aorta, renal arteries, iliac arteries and visualized femoral arteries. Evaluation of the IVC, iliac veins and femoral veins is limited by timing of the contrast bolus. The prostate gland is mildly prominent. The bladder is decompressed. No significant pelvic free fluid. No evidence of an acute osseous abnormality. IMPRESSION: Redemonstrated large (20 x 3 x 16 cm) right-sided complex abdominal wall fluid collection with involvementof the rectal sheath as detailed above. Of note, the right-sided surgical drain extends first into the peritoneal cavity and then the tip subsequently extends back into the abdominal wall within the fluid collection. Biliary stent, intrabiliary but low in position. New common bile duct dilatation, a component of which may reflect increased capacitance of the biliary system following cholecystectomy. D istal biliary obstruction (? stent occlusion) should also be considered. Recommend correlation with patient's liver function studies and clinical presentation. 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 However, one-year follow-up adrenal washout CT recommended to exclude a more aggressive p rocess. If stable on the follow-up 1 year examination, no further imaging required. Mild nonspecificwall thickening of the distal esophagus as detailed. Small right pleural effusion with atelectasis, stable. Large colonic fecal burden/constipation. Signed: Tony Nevarez MDReport Verified Date/Time: 20:18:36 Reading Location: [address] Room MAGNESIUM 2018-04-26 13:11:00 Test Item Value Reference Range Interpretation Comments MAGNESIUM (BEAKER) (test code = 1.5 mg/dL 1.6-2.6 L 627) BASIC METABOLIC [id number] 13:11:00 Test Item Value Reference Range Interpretation Comments SODIUM (BEAKER) 139 meq/L 136-145 (test code = 381) POTASSIUM (BEAKER) 4.0 meq/L 3.5-5.1 (test code = 379) CHLORIDE (BEAKER) 105 meq/L 98-107 (test code = 382) CO2 (BEAKER) (test 30 meq/L 22-29 H code = 355) BLOOD UREA NITROGEN 11 mg/dL 7-21 (BEAKER) (test code = 354) CREATININE (BEAKER) 0.73 mg/dL 0.57-1.25 (test code = 358) GLUCOSE RANDOM 89 mg/dL 70-105 (BEAKER) (test code = 652) CALCIUM (BEAKER) 10.3 mg/dL 8.4-10.2 H (test code = 697) EGFR (BEAKER) (test 108 mL/min/1.73 ESTIM ATED GFR IS code = 1092) sq m NOT ACCURATE CREATININE CLEARANCE IN PREDICTING GLOMERULAR FILTRATION RATE . ESTIMATED GFR I S NOT APPLICABLE FOR DIALYSIS PATIEN TS. HEPATIC FUNCTION [id number] 13:11:00 Test Item Value Reference Range Interpretation Comments TOTAL PROTEIN (BEAKER) (test code = 7.7 gm/dL 6.0-8.3 770) ALBUMIN (BEAKER) (test code = 1145) 3.6 g/dL 3.5-5.0 BILIRUBIN TOTAL (BEAKER) (test code 0.9 mg/dL 0.2-1.2 = 377) BILIRUBIN DIRECT (BEAKER) (test 0.4 mg/dL 0.1-0.5 code = 706) ALKALINE PHOSPHATASE (BEAKER) (test 113 U/L 40-150 code = 346) AST (SGOT) (BEAKER) (test code = 19 U/L 5-34 353) ALT (SGPT) (BEAKER) (test code = 10 U/L 6-55 347) [id number] 13:02:00 Test Item Value Reference Range Interpretation Comments PARTIAL THROMBOPLASTIN TIME 52.9 seconds 22.5-36.0 H (BEAKER) (test code = 760) PROTHROMBIN [id number] 13:00:00 Test Item Value Reference Range Interpretation Comments PROTIME (BEAKER) (test code = 20.0 seconds 11.7-14.7 H 759) INR (BEAKER) (test code = 370) 1.7 <=5.9 RECOMMENDED COUMADIN/WARFARIN INR THERAPY RANGESSTANDARD DOSE: 2.0 - 3.0 Includes: PROPHYLAXIS forvenous thrombosis, systemic embolization; TREATMENT for venous thrombosis and/or pulmonary embolus.HIGH RISK: Target INR is 2.5-3.5 for patients with mechanical heart valves.CBC W/PLT COUNT & AUTO DIFFERENTIAL 2018-04-26 12:57:00 Test Item Value Reference Range Interpretation Comments WHITE BLOOD CELL COUNT (BEAKER) 6.2 K/ L 3.5-10.5 (test code = 775) RED BLOOD CELL COUNT (BEAKER) 3.49 M/ L 4.63-6.08 L (test code = 761) HEMOGLOBIN (BEAKER) (test code = 10.4 GM/DL 13.7-17.5 L 410) HEMATOCRIT (BEAKER) (test code = 33.2 % 40.1-51.0 L 411) MEAN CORPUSCULAR VOLUME (BEAKER) 95.1 fL 79.0-92.2 H (test code = 753) MEAN CORPUSCULAR HEMOGLOBIN 29.8 pg 25.7-32.2 (BEAKER) (test code = 751) MEAN CORPUSCULAR HEMOGLOBIN CONC 31.3 GM/DL 32.3-36.5 L (BEAKER) (test code = 752) RED CELL DISTRIBUTION WIDTH 15.3 % 11.6-14.4 H (BEAKER) (test code = 412) PLATELET COUNT (BEAKER) (test 353 K/CU MM 150-450 code = 756) MEAN PLATELET VOLUME (BEAKER) 9.1 fL 9.4-12.4 L (test code = 754) NUCLEATED RED BLOOD CELLS 0 /100 WBC 0-0 (BEAKER) (test code = 413) NEUTROPHILS RELATIVE PERCENT 45 % (BEAKER) (test code = 429) LYMPHOCYTES RELATIVE PERCENT 44 % (BEAKER) (test code = 430) MONOCYTES RELATIVE PERCENT 8 % (BEAKER) (test code = 431) EOSINOPHILS RELATIVE PERCENT 3 % (BEAKER) (test code = 432) BASOPHILS RELATIVE PERCENT 1 % (BEAKER) (test code = 437) NEUTROPHILS ABSOLUTE COUNT 2.77 K/ L 1.78-5.38 (BEAKER) (test code = 670) LYMPHOCYTES ABSOLUTE COUNT 2.70 K/ L 1.32-3.57 (BEAKER) (test code = 414) MONOCYTES ABSOLUTE COUNT (BEAKER) 0.48 K/ L 0.30-0.82 (test code = 415) EOSINOPHILS ABSOLUTE COUNT 0.20 K/ L 0.04-0.54 (BEAKER) (test code = 416) BASOPHILS ABSOLUTE COUNT (BEAKER) 0.03 K/ L 0.01-0.08 (test code = 417) IMMATURE GRANULOCYTES-RELATIVE 0 % 0-1 PERCENT (BEAKER) (test code = 2801) [id number] 07:26:00 Test Item Value Reference Range Interpretation Comments MAGNESIUM (BEAKER) (test code = 2.0 mg/dL 1.6-2.6 627) BASIC METABOLIC [id number] 07:26:00 Test Item Value Reference Range Interpretation Comments SODIUM (BEAKER) 137 meq/L 136-145 (test code = 381) POTASSIUM (BEAKER) 3.9 meq/L 3.5-5.1 (test code = 379) CHLORIDE (BEAKER) 106 meq/L 98-107 (test code = 382) CO2 (BEAKER) (test 25 meq/L 22-29 code = 355) BLOOD UREA NITROGEN 8 mg/dL 7-21 (BEAKER) (test code = 354) CREATININE (BEAKER) 0.65 mg/dL 0.57-1.25 (test code = 358) GLUCOSE RANDOM 86 mg/dL 70-105 (BEAKER) (test code = 652) CALCIUM (BEAKER) 8.8 mg/dL 8.4-10.2 (test code = 697) EGFR (BEAKER) (test 123 mL/min/1.73 ESTIM ATED GFR IS code = 1092) sq m NOT ACCURATE CREATININE CLEARANCE IN PREDICTING GLOMERULAR FILTRATION RATE . ESTIMATED GFR I S NOT APPLICABLE FOR DIALYSIS PATIEN TS. HEPATIC FUNCTION [id number] 07:26:00 Test Item Value Reference Range Interpretation Comments TOTAL PROTEIN (BEAKER) (test code = 6.5 gm/dL 6.0-8.3 770) ALBUMIN (BEAKER) (test code = 1145) 2.6 g/dL 3.5-5.0 L BILIRUBIN TOTAL (BEAKER) (test code 1.5 mg/dL 0.2-1.2 H = 377) BILIRUBIN DIRECT (BEAKER) (test 0.7 mg/dL 0.1-0.5 H code = 706) ALKALINE PHOSPHATASE (BEAKER) (test 106 U/L 40-150 code = 346) AST (SGOT) (BEAKER) (test code = 30 U/L 5-34 353) ALT (SGPT) (BEAKER) (test code = 12 U/L 6-55 347) [id number] 07:25:00 Test Item Value Reference Range Interpretation Comments PHOSPHORUS (BEAKER) (test code = 2.6 mg/dL 2.3-4.7 604) PROTHROMBIN [id number] 07:11:00 Test Item Value Reference Range Interpretation Comments PROTIME (BEAKER) (test code = 27.4 seconds 11.7-14.7 H 759) INR (BEAKER) (test code = 370) 2.6 <=5.9 RECOMMENDED COUMADIN/WARFARIN INR THERAPY RANGESSTANDARD DOSE: 2.0 - 3.0 Includes: PROPHYLAXIS forvenous thrombosis, systemic embolization; TREATMENT for venous thrombosis and/or pulmonary embolus.HIGH RISK: Target INR is 2.5-3.5 for patients with mechanical heart valves.CBC W/PLT COUNT & AUTO DIFFERENTIAL 2018-03-30 06:57:00 Test Item Value Reference Range Interpretation Comments WHITE BLOOD CELL COUNT (BEAKER) 8.2 K/ L 3.5-10.5 (test code = 775) RED BLOOD CELL COUNT (BEAKER) 3.40 M/ L 4.63-6.08 L (test code = 761) HEMOGLOBIN (BEAKER) (test code = 10.3 GM/DL 13.7-17.5 L 410) HEMATOCRIT (BEAKER) (test code = 32.0 % 40.1-51.0 L 411) MEAN CORPUSCULAR VOLUME (BEAKER) 94.1 fL 79.0-92.2 H (test code = 753) MEAN CORPUSCULAR HEMOGLOBIN 30.3 pg 25.7-32.2 (BEAKER) (test code = 751) MEAN CORPUSCULAR HEMOGLOBIN CONC 32.2 GM/DL 32.3-36.5 L (BEAKER) (test code = 752) RED CELL DISTRIBUTION WIDTH 15.9 % 11.6-14.4 H (BEAKER) (test code = 412) PLATELET COUNT (BEAKER) (test 349 K/CU MM 150-450 code = 756) MEAN PLATELET VOLUME (BEAKER) 9.7 fL 9.4-12.4 (test code = 754) NUCLEATED RED BLOOD CELLS 0 /100 WBC 0-0 (BEAKER) (test code = 413) NEUTROPHILS RELATIVE PERCENT 60 % (BEAKER) (test code = 429) LYMPHOCYTES RELATIVE PERCENT 30 % (BEAKER) (test code = 430) MONOCYTES RELATIVE PERCENT 7 % (BEAKER) (test code = 431) EOSINOPHILS RELATIVE PERCENT 2 % (BEAKER) (test code = 432) BASOPHILS RELATIVE PERCENT 1 % (BEAKER) (test code = 437) NEUTROPHILS ABSOLUTE COUNT 4.93 K/ L 1.78-5.38 (BEAKER) (test code = 670) LYMPHOCYTES ABSOLUTE COUNT 2.50 K/ L 1.32-3.57 (BEAKER) (test code = 414) MONOCYTES ABSOLUTE COUNT (BEAKER) 0.56 K/ L 0.30-0.82 (test code = 415) EOSINOPHILS ABSOLUTE COUNT 0.18 K/ L 0.04-0.54 (BEAKER) (test code = 416) BASOPHILS ABSOLUTE COUNT (BEAKER) 0.04 K/ L 0.01-0.08 (test code = 417) IMMATURE GRANULOCYTES-RELATIVE 0 % 0-1 PERCENT (BEAKER) (test code = 2801) HEPATIC FUNCTION [id number] 07:51:00 Test Item Value Reference Range Interpretation Comments TOTAL PROTEIN (BEAKER) (test code = 6.0 gm/dL 6.0-8.3 770) ALBUMIN (BEAKER) (test code = 1145) 2.5 g/dL 3.5-5.0 L BILIRUBIN TOTAL (BEAKER) (test code 1.4 mg/dL 0.2-1.2 H = 377) BILIRUBIN DIRECT (BEAKER) (test 0.7 mg/dL 0.1-0.5 H code = 706) ALKALINE PHOSPHATASE (BEAKER) (test 95 U/L 40-150 code = 346) AST (SGOT) (BEAKER) (test code = 39 U/L 5-34 H 353) ALT (SGPT) (BEAKER) (test code = 12 U/L 6-55 347) [id number] 06:10:00 Test Item Value Reference Range Interpretation Comments PHOSPHORUS (BEAKER) (test code = 2.5 mg/dL 2.3-4.7 604) [id number] 06:10:00 Test Item Value Reference Range Interpretation Comments MAGNESIUM (BEAKER) (test code = 1.8 mg/dL 1.6-2.6 627) BASIC METABOLIC [id number] 06:10:00 Test Item Value Reference Range Interpretation Comments SODIUM (BEAKER) 138 meq/L 136-145 (test code = 381) POTASSIUM (BEAKER) 3.8 meq/L 3.5-5.1 (test code = 379) CHLORIDE (BEAKER) 108 meq/L 98-107 H (test code = 382) CO2 (BEAKER) (test 26 meq/L 22-29 code = 355) BLOOD UREA NITROGEN 9 mg/dL 7-21 (BEAKER) (test code = 354) CREATININE (BEAKER) 0.62 mg/dL 0.57-1.25 (test code = 358) GLUCOSE RANDOM 93 mg/dL 70-105 (BEAKER) (test code = 652) CALCIUM (BEAKER) 9.0 mg/dL 8.4-10.2 (test code = 697) EGFR (BEAKER) (test 130 mL/min/1.73 ESTIM ATED GFR IS code = 1092) sq m NOT ACCURATE CREATININE CLEARANCE IN PREDICTING GLOMERULAR FILTRATION RATE . ESTIMATED GFR I S NOT APPLICABLE FOR DIALYSIS PATIEN TS. PROTHROMBIN [id number] 05:54:00 Test Item Value Reference Range Interpretation Comments PROTIME (BEAKER) (test code = 26.4 seconds 11.7-14.7 H 759) INR (BEAKER) (test code = 370) 2.4 <=5.9 RECOMMENDED COUMADIN/WARFARIN INR THERAPY RANGESSTANDARD DOSE: 2.0 - 3.0 Includes: PROPHYLAXIS forvenous thrombosis, systemic embolization; TREATMENT for venous thrombosis and/or pulmonary embolus.HIGH RISK: Target INR is 2.5-3.5 for patients with mechanical heart valves.CBC W/PLT COUNT & AUTO DIFFERENTIAL 2018-03-29 05:38:00 Test Item Value Reference Range Interpretation Comments WHITE BLOOD CELL COUNT (BEAKER) 10.3 K/ L 3.5-10.5 (test code = 775) RED BLOOD CELL COUNT (BEAKER) 3.23 M/ L 4.63-6.08 L (test code = 761) HEMOGLOBIN (BEAKER) (test code = 9.8 GM/DL 13.7-17.5 L 410) HEMATOCRIT (BEAKER) (test code = 30.1 % 40.1-51.0 L 411) MEAN CORPUSCULAR VOLUME (BEAKER) 93.2 fL 79.0-92.2 H (test code = 753) MEAN CORPUSCULAR HEMOGLOBIN 30.3 pg 25.7-32.2 (BEAKER) (test code = 751) MEAN CORPUSCULAR HEMOGLOBIN CONC 32.6 GM/DL 32.3-36.5 (BEAKER) (test code = 752) RED CELL DISTRIBUTION WIDTH 15.9 % 11.6-14.4 H (BEAKER) (test code = 412) PLATELET COUNT (BEAKER) (test 332 K/CU MM 150-450 code = 756) MEAN PLATELET VOLUME (BEAKER) 9.9 fL 9.4-12.4 (test code = 754) NUCLEATED RED BLOOD CELLS 0 /100 WBC 0-0 (BEAKER) (test code = 413) NEUTROPHILS RELATIVE PERCENT 64 % (BEAKER) (test code = 429) LYMPHOCYTES RELATIVE PERCENT 27 % (BEAKER) (test code = 430) MONOCYTES RELATIVE PERCENT 6 % (BEAKER) (test code = 431) EOSINOPHILS RELATIVE PERCENT 2 % (BEAKER) (test code = 432) BASOPHILS RELATIVE PERCENT 0 % (BEAKER) (test code = 437) NEUTROPHILS ABSOLUTE COUNT 6.61 K/ L 1.78-5.38 H (BEAKER) (test code = 670) LYMPHOCYTES ABSOLUTE COUNT 2.80 K/ L 1.32-3.57 (BEAKER) (test code = 414) MONOCYTES ABSOLUTE COUNT (BEAKER) 0.58 K/ L 0.30-0.82 (test code = 415) EOSINOPHILS ABSOLUTE COUNT 0.18 K/ L 0.04-0.54 (BEAKER) (test code = 416) BASOPHILS ABSOLUTE COUNT (BEAKER) 0.04 K/ L 0.01-0.08 (test code = 417) IMMATURE GRANULOCYTES-RELATIVE 1 % 0-1 PERCENT (BEAKER) (test code = 2801) PROTHROMBIN [id number] 09:25:00 Test Item Value Reference Range Interpretation Comments PROTIME (BEAKER) (test code = 30.8 seconds 11.7-14.7 H 759) INR (BEAKER) (test code = 370) 3.0 <=5.9 RECOMMENDED COUMADIN/WARFARIN INR THERAPY RANGESSTANDARD DOSE: 2.0 - 3.0 Includes: PROPHYLAXIS forvenous thrombosis, systemic embolization; TREATMENT for venous thrombosis and/or pulmonary embolus.HIGH RISK: Target INR is 2.5-3.5 for patients with mechanical heart valves.[id number] 09:15:00 Test Item Value Reference Range Interpretation Comments PHOSPHORUS (BEAKER) (test code = 2.5 mg/dL 2.3-4.7 604) [id number] 09:15:00 Test Item Value Reference Range Interpretation Comments MAGNESIUM (BEAKER) (test code = 1.8 mg/dL 1.6-2.6 627) BASIC METABOLIC [id number] 09:15:00 Test Item Value Reference Range Interpretation Comments SODIUM (BEAKER) 138 meq/L 136-145 (test code = 381) POTASSIUM (BEAKER) 3.7 meq/L 3.5-5.1 (test code = 379) CHLORIDE (BEAKER) 107 meq/L 98-107 (test code = 382) CO2 (BEAKER) (test 27 meq/L 22-29 code = 355) BLOOD UREA NITROGEN 10 mg/dL 7-21 (BEAKER) (test code = 354) CREATININE (BEAKER) 0.60 mg/dL 0.57-1.25 (test code = 358) GLUCOSE RANDOM 87 mg/dL 70-105 (BEAKER) (test code = 652) CALCIUM (BEAKER) 8.5 mg/dL 8.4-10.2 (test code = 697) EGFR (BEAKER) (test 135 mL/min/1.73 ESTIM ATED GFR IS code = 1092) sq m NOT ACCURATE CREATININE CLEARANCE IN PREDICTING GLOMERULAR FILTRATION RATE . ESTIMATED GFR I S NOT APPLICABLE FOR DIALYSIS PATIEN TS. CBC W/PLT COUNT & AUTO [id number] 08:59:00 Test Item Value Reference Range Interpretation Comments WHITE BLOOD CELL COUNT (BEAKER) 10.3 K/ L 3.5-10.5 (test code = 775) RED BLOOD CELL COUNT (BEAKER) 3.30 M/ L 4.63-6.08 L (test code = 761) HEMOGLOBIN (BEAKER) (test code = 10.0 GM/DL 13.7-17.5 L 410) HEMATOCRIT (BEAKER) (test code = 30.6 % 40.1-51.0 L 411) MEAN CORPUSCULAR VOLUME (BEAKER) 92.7 fL 79.0-92.2 H (test code = 753) MEAN CORPUSCULAR HEMOGLOBIN 30.3 pg 25.7-32.2 (BEAKER) (test code = 751) MEAN CORPUSCULAR HEMOGLOBIN CONC 32.7 GM/DL 32.3-36.5 (BEAKER) (test code = 752) RED CELL DISTRIBUTION WIDTH 16.1 % 11.6-14.4 H (BEAKER) (test code = 412) PLATELET COUNT (BEAKER) (test 340 K/CU MM 150-450 code = 756) MEAN PLATELET VOLUME (BEAKER) 10.3 fL 9.4-12.4 (test code = 754) NUCLEATED RED BLOOD CELLS 0 /100 WBC 0-0 (BEAKER) (test code = 413) NEUTROPHILS RELATIVE PERCENT 65 % (BEAKER) (test code = 429) LYMPHOCYTES RELATIVE PERCENT 26 % (BEAKER) (test code = 430) MONOCYTES RELATIVE PERCENT 6 % (BEAKER) (test code = 431) EOSINOPHILS RELATIVE PERCENT 2 % (BEAKER) (test code = 432) BASOPHILS RELATIVE PERCENT 0 % (BEAKER) (test code = 437) NEUTROPHILS ABSOLUTE COUNT 6.67 K/ L 1.78-5.38 H (BEAKER) (test code = 670) LYMPHOCYTES ABSOLUTE COUNT 2.69 K/ L 1.32-3.57 (BEAKER) (test code = 414) MONOCYTES ABSOLUTE COUNT (BEAKER) 0.64 K/ L 0.30-0.82 (test code = 415) EOSINOPHILS ABSOLUTE COUNT 0.19 K/ L 0.04-0.54 (BEAKER) (test code = 416) BASOPHILS ABSOLUTE COUNT (BEAKER) 0.02 K/ L 0.01-0.08 (test code = 417) IMMATURE GRANULOCYTES-RELATIVE 1 % 0-1 PERCENT (BEAKER) (test code = 2801) [id number] 09:36:00 Test Item Value Reference Range Interpretation Comments PHOSPHORUS (BEAKER) (test code = 2.4 mg/dL 2.3-4.7 604) [id number] 09:36:00 Test Item Value Reference Range Interpretation Comments MAGNESIUM (BEAKER) (test code = 1.7 mg/dL 1.6-2.6 627) BASIC METABOLIC [id number] 09:36:00 Test Item Value Reference Range Interpretation Comments SODIUM (BEAKER) 137 meq/L 136-145 (test code = 381) POTASSIUM (BEAKER) 3.6 meq/L 3.5-5.1 (test code = 379) CHLORIDE (BEAKER) 108 meq/L 98-107 H (test code = 382) CO2 (BEAKER) (test 26 meq/L 22-29 code = 355) BLOOD UREA NITROGEN 10 mg/dL 7-21 (BEAKER) (test code = 354) CREATININE (BEAKER) 0.60 mg/dL 0.57-1.25 (test code = 358) GLUCOSE RANDOM 87 mg/dL 70-105 (BEAKER) (test code = 652) CALCIUM (BEAKER) 8.6 mg/dL 8.4-10.2 (test code = 697) EGFR (BEAKER) (test 135 mL/min/1.73 ESTIM ATED GFR IS code = 1092) sq m NOT ACCURATE CREATININE CLEARANCE IN PREDICTING GLOMERULAR FILTRATION RATE . ESTIMATED GFR I S NOT APPLICABLE FOR DIALYSIS PATIEN TS. PROTHROMBIN [id number] 09:32:00 Test Item Value Reference Range Interpretation Comments PROTIME (BEAKER) (test code = 32.2 seconds 11.7-14.7 H 759) INR (BEAKER) (test code = 370) 3.2 <=5.9 RECOMMENDED COUMADIN/WARFARIN INR THERAPY RANGESSTANDARD DOSE: 2.0 - 3.0 Includes: PROPHYLAXIS forvenous thrombosis, systemic embolization; TREATMENT for venous thrombosis and/or pulmonary embolus.HIGH RISK: Target INR is 2.5-3.5 for patients with mechanical heart valves.CBC W/PLT COUNT & AUTO DIFFERENTIAL 2018-03-27 09:13:00 Test Item Value Reference Range Interpretation Comments WHITE BLOOD CELL COUNT (BEAKER) 10.9 K/ L 3.5-10.5 H (test code = 775) RED BLOOD CELL COUNT (BEAKER) 3.22 M/ L 4.63-6.08 L (test code = 761) HEMOGLOBIN (BEAKER) (test code = 9.9 GM/DL 13.7-17.5 L 410) HEMATOCRIT (BEAKER) (test code = 29.6 % 40.1-51.0 L 411) MEAN CORPUSCULAR VOLUME (BEAKER) 91.9 fL 79.0-92.2 (test code = 753) MEAN CORPUSCULAR HEMOGLOBIN 30.7 pg 25.7-32.2 (BEAKER) (test code = 751) MEAN CORPUSCULAR HEMOGLOBIN CONC 33.4 GM/DL 32.3-36.5 (BEAKER) (test code = 752) RED CELL DISTRIBUTION WIDTH 16.1 % 11.6-14.4 H (BEAKER) (test code = 412) PLATELET COUNT (BEAKER) (test 309 K/CU MM 150-450 code = 756) MEAN PLATELET VOLUME (BEAKER) 10.0 fL 9.4-12.4 (test code = 754) NUCLEATED RED BLOOD CELLS 0 /100 WBC 0-0 (BEAKER) (test code = 413) NEUTROPHILS RELATIVE PERCENT 62 % (BEAKER) (test code = 429) LYMPHOCYTES RELATIVE PERCENT 29 % (BEAKER) (test code = 430) MONOCYTES RELATIVE PERCENT 6 % (BEAKER) (test code = 431) EOSINOPHILS RELATIVE PERCENT 1 % (BEAKER) (test code = 432) BASOPHILS RELATIVE PERCENT 0 % (BEAKER) (test code = 437) NEUTROPHILS ABSOLUTE COUNT 6.83 K/ L 1.78-5.38 H (BEAKER) (test code = 670) LYMPHOCYTES ABSOLUTE COUNT 3.22 K/ L 1.32-3.57 (BEAKER) (test code = 414) MONOCYTES ABSOLUTE COUNT (BEAKER) 0.64 K/ L 0.30-0.82 (test code = 415) EOSINOPHILS ABSOLUTE COUNT 0.15 K/ L 0.04-0.54 (BEAKER) (test code = 416) BASOPHILS ABSOLUTE COUNT (BEAKER) 0.02 K/ L 0.01-0.08 (test code = 417) IMMATURE GRANULOCYTES-RELATIVE 1 % 0-1 PERCENT (BEAKER) (test code = 2801) BLOOD [id number] 19:01:00 Test Item Value Reference Range Interpretation Comments CULTURE (BEAKER) (test No growth in 5 days code = 1095) BLOOD [id number] 19:01:00 Test Item Value Reference Range Interpretation Comments CULTURE (BEAKER) (test No growth in 5 days code = 1095) POCT-GLUCOSE [id number] 17:07:00 Test Item Value Reference Range Interpretation Comments POC-GLUCOSE METER 97 mg/dL 70-110 TESTED AT [place] [address] ([facility]) (test code = [facility] [address] 1538) POCT-GLUCOSE [id number] 16:56:00 Test Item Value Reference Range Interpretation Comments POC-GLUCOSE METER 122 mg/dL 70-110 H TESTED AT [place] [address] ([facility]) (test code = [facility] 1538) [id number] HEPATIC FUNCTION [id number] 09:24:00 Test Item Value Reference Range Interpretation Comments TOTAL PROTEIN (BEAKER) (test code = 5.7 gm/dL 6.0-8.3 L 770) ALBUMIN (BEAKER) (test code = 1145) 2.3 g/dL 3.5-5.0 L BILIRUBIN TOTAL (BEAKER) (test code 1.7 mg/dL 0.2-1.2 H = 377) BILIRUBIN DIRECT (BEAKER) (test 0.7 mg/dL 0.1-0.5 H code = 706) ALKALINE PHOSPHATASE (BEAKER) (test 100 U/L 40-150 code = 346) AST (SGOT) (BEAKER) (test code = 48 U/L 5-34 H 353) ALT (SGPT) (BEAKER) (test code = 14 U/L 6-55 347) POCT-GLUCOSE [id number] 08:47:00 Test Item Value Reference Range Interpretation Comments POC-GLUCOSE METER 82 mg/dL 70-110 TESTED AT [place] [address] ([facility]) (test code = [facility] [address] 1538) CBC W/PLT COUNT & AUTO [id number] 08:39:00 Test Item Value Reference Range Interpretation Comments WHITE BLOOD CELL COUNT (BEAKER) 14.4 K/ L 3.5-10.5 H (test code = 775) RED BLOOD CELL COUNT (BEAKER) 3.50 M/ L 4.63-6.08 L (test code = 761) HEMOGLOBIN (BEAKER) (test code = 10.6 GM/DL 13.7-17.5 L 410) HEMATOCRIT (BEAKER) (test code = 32.4 % 40.1-51.0 L 411) MEAN CORPUSCULAR VOLUME (BEAKER) 92.6 fL 79.0-92.2 H (test code = 753) MEAN CORPUSCULAR HEMOGLOBIN 30.3 pg 25.7-32.2 (BEAKER) (test code = 751) MEAN CORPUSCULAR HEMOGLOBIN CONC 32.7 GM/DL 32.3-36.5 (BEAKER) (test code = 752) RED CELL DISTRIBUTION WIDTH 16.9 % 11.6-14.4 H (BEAKER) (test code = 412) PLATELET COUNT (BEAKER) (test 301 K/CU MM 150-450 code = 756) MEAN PLATELET VOLUME (BEAKER) 10.6 fL 9.4-12.4 (test code = 754) NUCLEATED RED BLOOD CELLS 0 /100 WBC 0-0 (BEAKER) (test code = 413) NEUTROPHILS RELATIVE PERCENT 68 % (BEAKER) (test code = 429) LYMPHOCYTES RELATIVE PERCENT 24 % (BEAKER) (test code = 430) MONOCYTES RELATIVE PERCENT 5 % (BEAKER) (test code = 431) EOSINOPHILS RELATIVE PERCENT 2 % (BEAKER) (test code = 432) BASOPHILS RELATIVE PERCENT 0 % (BEAKER) (test code = 437) NEUTROPHILS ABSOLUTE COUNT 9.73 K/ L 1.78-5.38 H (BEAKER) (test code = 670) LYMPHOCYTES ABSOLUTE COUNT 3.48 K/ L 1.32-3.57 (BEAKER) (test code = 414) MONOCYTES ABSOLUTE COUNT (BEAKER) 0.70 K/ L 0.30-0.82 (test code = 415) EOSINOPHILS ABSOLUTE COUNT 0.30 K/ L 0.04-0.54 (BEAKER) (test code = 416) BASOPHILS ABSOLUTE COUNT (BEAKER) 0.03 K/ L 0.01-0.08 (test code = 417) IMMATURE GRANULOCYTES-RELATIVE 1 % 0-1 PERCENT (BEAKER) (test code = 2801) [id number] 06:51:00 Test Item Value Reference Range Interpretation Comments PHOSPHORUS (BEAKER) (test code = 1.6 mg/dL 2.3-4.7 L 604) [id number] 06:51:00 Test Item Value Reference Range Interpretation Comments MAGNESIUM (BEAKER) (test code = 1.9 mg/dL 1.6-2.6 627) BASIC METABOLIC [id number] 06:51:00 Test Item Value Reference Range Interpretation Comments SODIUM (BEAKER) 138 meq/L 136-145 (test code = 381) POTASSIUM (BEAKER) 3.8 meq/L 3.5-5.1 (test code = 379) CHLORIDE (BEAKER) 106 meq/L 98-107 (test code = 382) CO2 (BEAKER) (test 24 meq/L 22-29 code = 355) BLOOD UREA NITROGEN 15 mg/dL 7-21 (BEAKER) (test code = 354) CREATININE (BEAKER) 0.58 mg/dL 0.57-1.25 (test code = 358) GLUCOSE RANDOM 69 mg/dL 70-105 L (BEAKER) (test code = 652) CALCIUM (BEAKER) 8.3 mg/dL 8.4-10.2 L (test code = 697) EGFR (BEAKER) (test 141 mL/min/1.73 ESTIM ATED GFR IS code = 1092) sq m NOT ACCURATE CREATININE CLEARANCE IN PREDICTING GLOMERULAR FILTRATION RATE . ESTIMATED GFR I S NOT APPLICABLE FOR DIALYSIS PATIEN TS. PROTHROMBIN [id number] 06:48:00 Test Item Value Reference Range Interpretation Comments PROTIME (BEAKER) (test code = 29.8 seconds 11.7-14.7 H 759) INR (BEAKER) (test code = 370) 2.9 <=5.9 RECOMMENDED COUMADIN/WARFARIN INR THERAPY RANGESSTANDARD DOSE: 2.0 - 3.0 Includes: PROPHYLAXIS forvenous thrombosis, systemic embolization; TREATMENT for venous thrombosis and/or pulmonary embolus.HIGH RISK: Target INR is 2.5-3.5 for patients with mechanical heart valves.BASIC METABOLIC [id number] 01:00:00 Test Item Value Reference Range Interpretation Comments SODIUM (BEAKER) 137 meq/L 136-145 (test code = 381) POTASSIUM (BEAKER) 3.7 meq/L 3.5-5.1 (test code = 379) CHLORIDE (BEAKER) 107 meq/L 98-107 (test code = 382) CO2 (BEAKER) (test 26 meq/L 22-29 code = 355) BLOOD UREA NITROGEN 17 mg/dL 7-21 (BEAKER) (test code = 354) CREATININE (BEAKER) 0.57 mg/dL 0.57-1.25 (test code = 358) GLUCOSE RANDOM 87 mg/dL 70-105 (BEAKER) (test code = 652) CALCIUM (BEAKER) 8.4 mg/dL 8.4-10.2 (test code = 697) EGFR (BEAKER) (test 143 mL/min/1.73 ESTIM ATED GFR IS code = 1092) sq m NOT ACCURATE CREATININE CLEARANCE IN PREDICTING GLOMERULAR FILTRATION RATE . ESTIMATED GFR I S NOT APPLICABLE FOR DIALYSIS PATIEN TS. HEMOGLOBIN AND [id number] 00:44:00 Test Item Value Reference Range Interpretation Comments HEMOGLOBIN (BEAKER) (test code = 10.0 GM/DL 13.7-17.5 L 410) HEMATOCRIT (BEAKER) (test code = 30.5 % 40.1-51.0 L 411) POCT-GLUCOSE [id number] 00:41:00 Test Item Value Reference Range Interpretation Comments POC-GLUCOSE METER 100 mg/dL 70-110 TESTED AT [facility] [address] (BEAKER) (test code = [place] 1538) [id number] PROTHROMBIN [id number] 23:45:00 Test Item Value Reference Range Interpretation Comments PROTIME (BEAKER) (test code = 30.7 seconds 11.7-14.7 H 759) INR (BEAKER) (test code = 370) 3.0 <=5.9 RECOMMENDED COUMADIN/WARFARIN INR THERAPY RANGESSTANDARD DOSE: 2.0 - 3.0 Includes: PROPHYLAXIS forvenous thrombosis, systemic embolization; TREATMENT for venous thrombosis and/or pulmonary embolus.HIGH RISK: Target INR is 2.5-3.5 for patients with mechanical heart valves.POCT-GLUCOSE [id number] 18:15:00 Test Item Value Reference Range Interpretation Comments POC-GLUCOSE METER 113 mg/dL 70-110 H TESTED AT [facility] [address] ([facility]) (test code = [place] 1538) [id number] PROTHROMBIN [id number] 13:06:00 Test Item Value Reference Range Interpretation Comments PROTIME (BEAKER) (test code = 28.3 seconds 11.7-14.7 H 759) INR (BEAKER) (test code = 370) 2.6 <=5.9 RECOMMENDED COUMADIN/WARFARIN INR THERAPY RANGESSTANDARD DOSE: 2.0 - 3.0 Includes: PROPHYLAXIS forvenous thrombosis, systemic embolization; TREATMENT for venous thrombosis and/or pulmonary embolus.HIGH RISK: Target INR is 2.5-3.5 for patients with mechanical heart valves.HEMOGLOBIN AND [id number] 12:43:00 Test Item Value Reference Range Interpretation Comments HEMOGLOBIN (BEAKER) (test code = 9.9 GM/DL 13.7-17.5 L 410) HEMATOCRIT (BEAKER) (test code = 29.7 % 40.1-51.0 L 411) POCT-GLUCOSE [id number] 12:09:00 Test Item Value Reference Range Interpretation Comments POC-GLUCOSE METER 144 mg/dL 70-110 H TESTED AT [place] [address] ([facility]) (test code = [place] [place] 1538) [id number] HEMOGLOBIN AND [id number] 06:16:00 Test Item Value Reference Range Interpretation Comments HEMOGLOBIN (BEAKER) (test code = 9.0 GM/DL 13.7-17.5 L 410) HEMATOCRIT (BEAKER) (test code = 28.0 % 40.1-51.0 L 411) POCT-GLUCOSE [id number] 06:00:00 Test Item Value Reference Range Interpretation Comments POC-GLUCOSE METER 118 mg/dL 70-110 H TESTED AT [place] [address] ([facility]) (test code = [facility] [place] 1538) [id number] 05:20:00 Test Item Value Reference Range Interpretation Comments PHOSPHORUS (BEAKER) (test code = 2.7 mg/dL 2.3-4.7 604) [id number] 05:20:00 Test Item Value Reference Range Interpretation Comments MAGNESIUM (BEAKER) (test code = 1.9 mg/dL 1.6-2.6 627) BASIC METABOLIC [id number] 05:20:00 Test Item Value Reference Range Interpretation Comments SODIUM (BEAKER) 143 meq/L 136-145 (test code = 381) POTASSIUM (BEAKER) 4.2 meq/L 3.5-5.1 (test code = 379) CHLORIDE (BEAKER) 112 meq/L 98-107 H (test code = 382) CO2 (BEAKER) (test 27 meq/L 22-29 code = 355) BLOOD UREA NITROGEN 22 mg/dL 7-21 H (BEAKER) (test code = 354) CREATININE (BEAKER) 0.59 mg/dL 0.57-1.25 (test code = 358) GLUCOSE RANDOM 119 mg/dL 70-105 H (BEAKER) (test code = 652) CALCIUM (BEAKER) 8.4 mg/dL 8.4-10.2 (test code = 697) EGFR (BEAKER) (test 138 mL/min/1.73 ESTIM ATED GFR IS code = 1092) sq m NOT ACCURATE CREATININE CLEARANCE IN PREDICTING GLOMERULAR FILTRATION RATE . ESTIMATED GFR I S NOT APPLICABLE FOR DIALYSIS PATIEN TS. HEPATIC FUNCTION [id number] 05:20:00 Test Item Value Reference Range Interpretation Comments TOTAL PROTEIN (BEAKER) (test code = 5.3 gm/dL 6.0-8.3 L 770) ALBUMIN (BEAKER) (test code = 1145) 2.3 g/dL 3.5-5.0 L BILIRUBIN TOTAL (BEAKER) (test code 1.5 mg/dL 0.2-1.2 H = 377) BILIRUBIN DIRECT (BEAKER) (test 0.7 mg/dL 0.1-0.5 H code = 706) ALKALINE PHOSPHATASE (BEAKER) (test 81 U/L 40-150 code = 346) AST (SGOT) (BEAKER) (test code = 29 U/L 5-34 353) ALT (SGPT) (BEAKER) (test code = 12 U/L 6-55 347) LACTIC ACID, ARTERIAL, WHOLE [id number] 05:08:00 Test Item Value Reference Range Interpretation Comments LACTATE BLOOD ARTERIAL (2) 0.9 mmol/L 0.5-2.2 (BEAKER) (test code = 2874) PROTHROMBIN [id number] 05:03:00 Test Item Value Reference Range Interpretation Comments PROTIME (BEAKER) (test code = 26.0 seconds 11.7-14.7 H 759) INR (BEAKER) (test code = 370) 2.4 <=5.9 RECOMMENDED COUMADIN/WARFARIN INR THERAPY RANGESSTANDARD DOSE: 2.0 - 3.0 Includes: PROPHYLAXIS forvenous thrombosis, systemic embolization; TREATMENT for venous thrombosis and/or pulmonary embolus.HIGH RISK: Target INR is 2.5-3.5 for patients with mechanical heart valves.CBC W/PLT COUNT & AUTO DIFFERENTIAL 2018-03-25 04:58:00 Test Item Value Reference Range Interpretation Comments WHITE BLOOD CELL COUNT (BEAKER) 11.2 K/ L 3.5-10.5 H (test code = 775) RED BLOOD CELL COUNT (BEAKER) 3.05 M/ L 4.63-6.08 L (test code = 761) HEMOGLOBIN (BEAKER) (test code = 9.3 GM/DL 13.7-17.5 L 410) HEMATOCRIT (BEAKER) (test code = 28.4 % 40.1-51.0 L 411) MEAN CORPUSCULAR VOLUME (BEAKER) 93.1 fL 79.0-92.2 H (test code = 753) MEAN CORPUSCULAR HEMOGLOBIN 30.5 pg 25.7-32.2 (BEAKER) (test code = 751) MEAN CORPUSCULAR HEMOGLOBIN CONC 32.7 GM/DL 32.3-36.5 (BEAKER) (test code = 752) RED CELL DISTRIBUTION WIDTH 16.9 % 11.6-14.4 H (BEAKER) (test code = 412) PLATELET COUNT (BEAKER) (test 274 K/CU MM 150-450 code = 756) MEAN PLATELET VOLUME (BEAKER) 10.3 fL 9.4-12.4 (test code = 754) NUCLEATED RED BLOOD CELLS 0 /100 WBC 0-0 (BEAKER) (test code = 413) NEUTROPHILS RELATIVE PERCENT 70 % (BEAKER) (test code = 429) LYMPHOCYTES RELATIVE PERCENT 23 % (BEAKER) (test code = 430) MONOCYTES RELATIVE PERCENT 6 % (BEAKER) (test code = 431) EOSINOPHILS RELATIVE PERCENT 0 % (BEAKER) (test code = 432) BASOPHILS RELATIVE PERCENT 0 % (BEAKER) (test code = 437) NEUTROPHILS ABSOLUTE COUNT 7.79 K/ L 1.78-5.38 H (BEAKER) (test code = 670) LYMPHOCYTES ABSOLUTE COUNT 2.60 K/ L 1.32-3.57 (BEAKER) (test code = 414) MONOCYTES ABSOLUTE COUNT (BEAKER) 0.65 K/ L 0.30-0.82 (test code = 415) EOSINOPHILS ABSOLUTE COUNT 0.02 K/ L 0.04-0.54 L (BEAKER) (test code = 416) BASOPHILS ABSOLUTE COUNT (BEAKER) 0.01 K/ L 0.01-0.08 (test code = 417) IMMATURE GRANULOCYTES-RELATIVE 1 % 0-1 PERCENT (BEAKER) (test code = 2801) PROTHROMBIN [id number] 00:39:00 Test Item Value Reference Range Interpretation Comments PROTIME (BEAKER) (test code = 25.3 seconds 11.7-14.7 H 759) INR (BEAKER) (test code = 370) 2.3 <=5.9 RECOMMENDED COUMADIN/WARFARIN INR THERAPY RANGESSTANDARD DOSE: 2.0 - 3.0 Includes: PROPHYLAXIS forvenous thrombosis, systemic embolization; TREATMENT for venous thrombosis and/or pulmonary embolus.HIGH RISK: Target INR is 2.5-3.5 for patients with mechanical heart valves.HEMOGLOBIN AND [id number] 00:30:00 Test Item Value Reference Range Interpretation Comments HEMOGLOBIN (BEAKER) (test code = 8.1 GM/DL 13.7-17.5 L 410) HEMATOCRIT (BEAKER) (test code = 25.0 % 40.1-51.0 L 411) POCT-GLUCOSE [id number] 00:30:00 Test Item Value Reference Range Interpretation Comments POC-GLUCOSE METER 129 mg/dL 70-110 H TESTED AT [place] [address] ([facility]) (test code = [place] [address]) [id number] POCT-GLUCOSE [id number] 18:22:00 Test Item Value Reference Range Interpretation Comments POC-GLUCOSE METER 102 mg/dL 70-110 TESTED AT [facility] [address] [facility] (test code = [place] [address]) [id number] PROTHROMBIN [id number] 17:09:00 Test Item Value Reference Range Interpretation Comments PROTIME (BEAKER) (test code = 25.8 seconds 11.7-14.7 H 759) INR (BEAKER) (test code = 370) 2.4 <=5.9 RECOMMENDED COUMADIN/WARFARIN INR THERAPY RANGESSTANDARD DOSE: 2.0 - 3.0 Includes: PROPHYLAXIS forvenous thrombosis, systemic embolization; TREATMENT for venous thrombosis and/or pulmonary embolus.HIGH RISK: Target INR is 2.5-3.5 for patients with mechanical heart valves.HEMOGLOBIN AND [id number] 16:59:00 Test Item Value Reference Range Interpretation Comments HEMOGLOBIN (BEAKER) (test code = 8.4 GM/DL 13.7-17.5 L 410) HEMATOCRIT (BEAKER) (test code = 25.8 % 40.1-51.0 L 411) TISSUE [id number] 16:07:00Surgical Pathology Report Case: [id number] Authorizing Provider: Isrrael Laureano MD Collected: 03/19/2018 1626 Ordering Location: [facility] Received: 03/22/2018 0841 SERVICES Pathologist: Meek Johnson MD Specimens: A) - Gallbladder, GALLBLADDER MUCOSA B) -Gallbladder A. GALLBLADDER MUCOSA, EXCISION: - NECROTIC FIBROADIPOSE TISSUE WITH BILE FRAGMENTS - NO VIABLE MUCOSA AVAILABLE FOR EVALUATIONB. GALLBLADDER, CHOLECYSTECTOMY: - MARKED ACUTE NECROTIZING CHOLECYSTITIS WITH HEMORRHAGE AND REACTIVE CHANGES Signing Pathologist Direct Phone Line: [phone] signed by Meek Johnson MD on 03/24/2018 at 4:07 [id number] 2Acute cholecystitis A. Gallbladder mucosa. B.Gallbladder The case was received in two parts labeled with the patient's name, Seven Diaz, date of 1950, and accession number, [id number], which corresponds with accompanying paperwork.A. Received in formalin and labeled "A. Gallbladder mucosa" is a 10.5 x 3.0 x 0.3 cm thick piece of velvety, shiny, green, soft tissue mucosa. The specimen is serially sectioned, and telesales representative sections are submitted in cassettes A1 and A2.B. Received in formalin and labeled "B. Gallbladder" is a 6.5 x 4.5 x 0.7 cm thick piece of green-yellow to green soft tissue. The specimen is serially sectioned, and telesales representative sections are submitted in cassettes B1 through B2. No common bile duct margin or duct can be identified. No calculi are identified. SC/ew Performed.FL, [id number] 15:39:00INTRA OP IMAGINGReason for exam:- >ABNORMAL IMAGINGFINAL REPORT Nondiagnostic exam. Radiology provided fluoroscopy for ERCP performed by Dr. Junior. Neither radiologist presence nor interpretation were requested. Please refer to the operative report for further information. Fluoroscopy time was 93.1 cm. Total # of images: 3 Signed: JR Muñoz Robert MDReport Verified Date/Time: 03/24/2018 15:39:33 Reading Location: [address] Consult Reading Room POCT- GLUCOSE [id number] 12:14:00 Test Item Value Reference Range Interpretation Comments POC-GLUCOSE METER 95 mg/dL 70-110 TESTED AT [place] [address] ([facility]) (test code = CHACHA Benites [facility] [address] 1538) PROTHROMBIN [id number] 06:56:00 Test Item Value Reference Range Interpretation Comments PROTIME ([facility]) (test code = 20.1 seconds 11.7-14.7 H 759) INR ([facility]) (test code = 370) 1.7 <=5.9 RECOMMENDED COUMADIN/WARFARIN INR THERAPY RANGESSTANDARD DOSE: 2.0 - 3.0 Includes: PROPHYLAXIS forvenous thrombosis, systemic embolization; TREATMENT for venous thrombosis and/or pulmonary embolus.HIGH RISK: Target INR is 2.5-3.5 for patients with mechanical heart valves.Atleast 30 min after Kcentra administrationHEMOGLOBIN AND [id number] 06:50:00 Test Item Value Reference Range Interpretation Comments HEMOGLOBIN ([facility]) (test code = 8.9 GM/DL 13.7-17.5 L 410) HEMATOCRIT ([facility]) (test code = 26.9 % 40.1-51.0 L 411) POCT-GLUCOSE [id number] 06:38:00 Test Item Value Reference Range Interpretation Comments POC-GLUCOSE METER 104 mg/dL 70-110 TESTED AT [facility] 6720 (BEAKER) (test code = CHACHA Benites [place] 1538) [address] POCT-GLUCOSE [id number] 05:02:00 Test Item Value Reference Range Interpretation Comments POC-GLUCOSE METER 115 mg/dL 70-110 H TESTED AT [facility] 67[address] (BEAKER) (test code = CHACHA Benites [place] 1538) [address] [id number] 04:24:00 Test Item Value Reference Range Interpretation Comments PHOSPHORUS (BEAKER) (test code = 2.2 mg/dL 2.3-4.7 L 604) [id number] 04:24:00 Test Item Value Reference Range Interpretation Comments MAGNESIUM (BEAKER) (test code = 2.0 mg/dL 1.6-2.6 627) BASIC METABOLIC [id number] 04:24:00 Test Item Value Reference Range Interpretation Comments SODIUM (BEAKER) 144 meq/L 136-145 (test code = 381) POTASSIUM (BEAKER) 3.8 meq/L 3.5-5.1 (test code = 379) CHLORIDE (BEAKER) 111 meq/L 98-107 H (test code = 382) CO2 (BEAKER) (test 27 meq/L 22-29 code = 355) BLOOD UREA NITROGEN 17 mg/dL 7-21 (BEAKER) (test code = 354) CREATININE (BEAKER) 0.63 mg/dL 0.57-1.25 (test code = 358) GLUCOSE RANDOM 109 mg/dL 70-105 H (BEAKER) (test code = 652) CALCIUM (BEAKER) 8.8 mg/dL 8.4-10.2 (test code = 697) EGFR (BEAKER) (test 128 mL/min/1.73 ESTIM ATED GFR IS code = 1092) sq m NOT ACCURATE CREATININE CLEARANCE IN PREDICTING GLOMERULAR FILTRATION RATE . ESTIMATED GFR I S NOT APPLICABLE FOR DIALYSIS PATIEN TS. [id number] 04:17:00 Test Item Value Reference Range Interpretation Comments PROTIME (BEAKER) (test code = 25.0 seconds 11.7-14.7 H 759) INR (BEAKER) (test code = 370) 2.3 <=5.9 PARTIAL THROMBOPLASTIN TIME 60.7 seconds 22.5-36.0 H (BEAKER) (test code = 760) RECOMMENDED COUMADIN/WARFARIN INR THERAPY RANGESSTANDARD DOSE: 2.0 - 3.0 Includes: PROPHYLAXIS forvenous thrombosis, systemic embolization; TREATMENT for venous thrombosis and/or pulmonary embolus.HIGH RISK: Target INR is 2.5-3.5 for patients with mechanical heart valves.PROTHROMBIN [id number] 04:16:00 Test Item Value Reference Range Interpretation Comments PROTIME (BEAKER) (test code = 25.0 seconds 11.7-14.7 H 759) INR (BEAKER) (test code = 370) 2.3 <=5.9 RECOMMENDED COUMADIN/WARFARIN INR THERAPY RANGESSTANDARD DOSE: 2.0 - 3.0 Includes: PROPHYLAXIS forvenous thrombosis, systemic embolization; TREATMENT for venous thrombosis and/or pulmonary embolus.HIGH RISK: Target INR is 2.5-3.5 for patients with mechanical heart valves.LACTIC ACID, ARTERIAL, WHOLE BLOOD 2018-03-24 04:12:00 Test Item Value Reference Range Interpretation Comments LACTATE BLOOD ARTERIAL (2) 0.9 mmol/L 0.5-2.2 (BEAKER) (test code = 2874) HEMOGLOBIN AND [id number] 04:01:00 Test Item Value Reference Range Interpretation Comments HEMOGLOBIN (BEAKER) (test code = 8.1 GM/DL 13.7-17.5 L 410) HEMATOCRIT (BEAKER) (test code = 23.7 % 40.1-51.0 L 411) CBC W/PLT COUNT & AUTO [id number] 04:01:00 Test Item Value Reference Range Interpretation Comments WHITE BLOOD CELL COUNT (BEAKER) 12.7 K/ L 3.5-10.5 H (test code = 775) RED BLOOD CELL COUNT (BEAKER) 2.59 M/ L 4.63-6.08 L (test code = 761) HEMOGLOBIN (BEAKER) (test code = 8.1 GM/DL 13.7-17.5 L 410) HEMATOCRIT (BEAKER) (test code = 23.7 % 40.1-51.0 L 411) MEAN CORPUSCULAR VOLUME (BEAKER) 91.5 fL 79.0-92.2 (test code = 753) MEAN CORPUSCULAR HEMOGLOBIN 31.3 pg 25.7-32.2 (BEAKER) (test code = 751) MEAN CORPUSCULAR HEMOGLOBIN CONC 34.2 GM/DL 32.3-36.5 (BEAKER) (test code = 752) RED CELL DISTRIBUTION WIDTH 18.0 % 11.6-14.4 H (BEAKER) (test code = 412) PLATELET COUNT (BEAKER) (test 304 K/CU MM 150-450 code = 756) MEAN PLATELET VOLUME (BEAKER) 10.1 fL 9.4-12.4 (test code = 754) NUCLEATED RED BLOOD CELLS 0 /100 WBC 0-0 (BEAKER) (test code = 413) NEUTROPHILS RELATIVE PERCENT 61 % (BEAKER) (test code = 429) LYMPHOCYTES RELATIVE PERCENT 28 % (BEAKER) (test code = 430) MONOCYTES RELATIVE PERCENT 7 % (BEAKER) (test code = 431) EOSINOPHILS RELATIVE PERCENT 2 % (BEAKER) (test code = 432) BASOPHILS RELATIVE PERCENT 0 % (BEAKER) (test code = 437) NEUTROPHILS ABSOLUTE COUNT 7.69 K/ L 1.78-5.38 H (BEAKER) (test code = 670) LYMPHOCYTES ABSOLUTE COUNT 3.56 K/ L 1.32-3.57 (BEAKER) (test code = 414) MONOCYTES ABSOLUTE COUNT (BEAKER) 0.93 K/ L 0.30-0.82 H (test code = 415) EOSINOPHILS ABSOLUTE COUNT 0.21 K/ L 0.04-0.54 (BEAKER) (test code = 416) BASOPHILS ABSOLUTE COUNT (BEAKER) 0.02 K/ L 0.01-0.08 (test code = 417) IMMATURE GRANULOCYTES-RELATIVE 2 % 0-1 H PERCENT (BEAKER) (test code = 2801) PROTHROMBIN [id number] 00:11:00 Test Item Value Reference Range Interpretation Comments PROTIME (BEAKER) (test code = 22.8 seconds 11.7-14.7 H 759) INR (BEAKER) (test code = 370) 2.0 <=5.9 RECOMMENDED COUMADIN/WARFARIN INR THERAPY RANGESSTANDARD DOSE: 2.0 - 3.0 Includes: PROPHYLAXIS forvenous thrombosis, systemic embolization; TREATMENT for venous thrombosis and/or pulmonary embolus.HIGH RISK: Target INR is 2.5-3.5 for patients with mechanical heart valves.HEMOGLOBIN AND [id number] 00:00:00 Test Item Value Reference Range Interpretation Comments HEMOGLOBIN (BEAKER) (test code = 8.1 GM/DL 13.7-17.5 L 410) HEMATOCRIT (BEAKER) (test code = 24.5 % 40.1-51.0 L 411) PROTHROMBIN [id number] 22:34:00 Test Item Value Reference Range Interpretation Comments PROTIME (BEAKER) (test code = 22.5 seconds 11.7-14.7 H 759) INR (BEAKER) (test code = 370) 2.0 <=5.9 RECOMMENDED COUMADIN/WARFARIN INR THERAPY RANGESSTANDARD DOSE: 2.0 - 3.0 Includes: PROPHYLAXIS forvenous thrombosis, systemic embolization; TREATMENT for venous thrombosis and/or pulmonary embolus.HIGH RISK: Target INR is 2.5-3.5 for patients with mechanical heart valves.LACTIC ACID, ARTERIAL, WHOLE BLOOD 2018-03-23 21:08:00 Test Item Value Reference Range Interpretation Comments LACTATE BLOOD 0.9 mmol/L 0.5-2.2 Specimen sligh tly ARTERIAL (2) (DARIOAKER) hemoly zed (test code = 2874) PROTHROMBIN [id number] 18:04:00 Test Item Value Reference Range Interpretation Comments PROTIME (BEAKER) (test code = 19.8 seconds 11.7-14.7 H 759) INR (BEAKER) (test code = 370) 1.7 <=5.9 RECOMMENDED COUMADIN/WARFARIN INR THERAPY RANGESSTANDARD DOSE: 2.0 - 3.0 Includes: PROPHYLAXIS forvenous thrombosis, systemic embolization; TREATMENT for venous thrombosis and/or pulmonary embolus.HIGH RISK: Target INR is 2.5-3.5 for patients with mechanical heart valves.HEMOGLOBIN AND [id number] 17:32:00 Test Item Value Reference Range Interpretation Comments HEMOGLOBIN (BEAKER) (test code = 7.2 GM/DL 13.7-17.5 L 410) HEMATOCRIT (BEAKER) (test code = 21.7 % 40.1-51.0 L 411) POCT-GLUCOSE [id number] 17:31:00 Test Item Value Reference Range Interpretation Comments POC-GLUCOSE METER 130 mg/dL 70-110 H TESTED AT [facility] 67[address] (LILI) (test code = CHACHA [place] 1538) [address] RAD, CHEST, 1 VIEW, NON [id number] 14:37:00Reason for exam:->evalute for pulmonary edemaShould this be performed at the bedside?->YesFINAL REPORT HISTORY : evaluate for pulmonary edema. Comparison: 03/23/2018 performed earlier Comment: Single portable view of the chest was obtained. The cardiac silhouette size is enlarged. There are findings of pulmonary venous congestion. Interstitial prominence may represent interstitial edema. Pneumonitis cannot be excluded. There is a zfvwy-qghzwmam-drxyh right- sided pleural effusion with some adjacent consolidation. The patient is status post sternotomy. Nasogastric tube is seen with the tip not included on the film. No lytic or blastic abnormalities are appreciated.No pneumothorax is visualized. Signed: Maia Valentin Verified Date/Time: 03/23/2018 14:37:03 Reading Location: [address] Transitional Reading Room RAD, ABDOMEN/KUB, 1 VIEW [id number] 13:18:00Reason for exam:->ng tubeShould this be performed at the bedside?->YesFINAL REPORT History: Nasogastric tube COMPARISON: 03/23/2018 performed earlier DISCUSSION: A single frontal view of the abdomen was made for interpretation. A nasogastric tube is seen with the tip projecting over the expected location of the proximal-mid body of the stomach. A drainage catheter is seen projecting over the right upper quadrant abdomen. There are some prominent loops of small bowel in the left abdomen. There is a small right-sided pleural effusion with some adjacent consolidation. Signed: Maia Valentin MDRriveraort Verified Date/Time: 03/23/2018 13:18:37 Reading Location: [address] Transitional Reading Room POCT-GLUCOSE [id number] 12:57:00 Test Item Value Reference Range Interpretation Comments POC-GLUCOSE METER 177 mg/dL 70-110 H TESTED AT [facility] 67 (AM[place]OR) (test code = CHACHA VASQUEZ [facility]8) [address] PROTHROMBIN [id number] 11:46:00 Test Item Value Reference Range Interpretation Comments PROTIME (BEAKER) (test code = 34.3 seconds 11.7-14.7 H 759) INR (BEAKER) (test code = 370) 3.4 <=5.9 RECOMMENDED COUMADIN/WARFARIN INR THERAPY RANGESSTANDARD DOSE: 2.0 - 3.0 Includes: PROPHYLAXIS forvenous thrombosis, systemic embolization; TREATMENT for venous thrombosis and/or pulmonary embolus.HIGH RISK: Target INR is 2.5-3.5 for patients with mechanical heart valves.VANCOMYCIN LEVEL, [id number] 11:38:00 Test Item Value Reference Range Interpretation Comments VANCOMYCIN TROUGH (BEAKER) (test 15.5 ug/mL 10.0-20.0 code = 522) Please draw vancomycin level at 1230. If level >20 mcg/mL, hold 1300 dose and notify MD.HEMOGLOBIN AND [id number] 11:20:00 Test Item Value Reference Range Interpretation Comments HEMOGLOBIN (BEAKER) (test code = 8.0 GM/DL 13.7-17.5 L 410) HEMATOCRIT (BEAKER) (test code = 23.0 % 40.1-51.0 L 411) URINE [id number] 10:24:00 Test Item Value Reference Range Interpretation Comments CULTURE (BEAKER) (test code = 1095) No growth BASIC METABOLIC [id number] 09:00:00 Test Item Value Reference Range Interpretation Comments SODIUM (BEAKER) 143 meq/L 136-145 (test code = 381) POTASSIUM (BEAKER) 4.1 meq/L 3.5-5.1 Specimen slightly (test code = 379) hemolyzed CHLORIDE (BEAKER) 107 meq/L 98-107 (test code = 382) CO2 (BEAKER) (test 26 meq/L 22-29 code = 355) BLOOD UREA NITROGEN 13 mg/dL 7-21 (BEAKER) (test code = 354) CREATININE (BEAKER) 0.70 mg/dL 0.57-1.25 Specimen slightly (test code = 358) hemolyzed GLUCOSE RANDOM 118 mg/dL 70-105 H (BEAKER) (test code = 652) CALCIUM (BEAKER) 9.2 mg/dL 8.4-10.2 (test code = 697) EGFR (BEAKER) (test 113 mL/min/1.73 ESTIM ATED GFR IS code = 1092) sq m NOT ACCURATE CREATININE CLEARANCE IN PREDICTING GLOMERULAR FILTRATION RATE . ESTIMATED GFR I S NOT APPLICABLE FOR DIALYSIS PATIEN TS. [id number] 07:03:00 Test Item Value Reference Range Interpretation Comments PHOSPHORUS (BEAKER) (test code = 3.1 mg/dL 2.3-4.7 604) [id number] 07:03:00 Test Item Value Reference Range Interpretation Comments MAGNESIUM (BEAKER) (test code = 2.0 mg/dL 1.6-2.6 627) PROTHROMBIN [id number] 06:56:00 Test Item Value Reference Range Interpretation Comments PROTIME (BEAKER) (test code = 31.2 seconds 11.7-14.7 H 759) INR (BEAKER) (test code = 370) 3.0 <=5.9 RECOMMENDED COUMADIN/WARFARIN INR THERAPY RANGESSTANDARD DOSE: 2.0 - 3.0 Includes: PROPHYLAXIS forvenous thrombosis, systemic embolization; TREATMENT for venous thrombosis and/or pulmonary embolus.HIGH RISK: Target INR is 2.5-3.5 for patients with mechanical heart valves.CBC W/PLT COUNT & AUTO DIFFERENTIAL 2018-03-23 06:40:00 Test Item Value Reference Range Interpretation Comments WHITE BLOOD CELL COUNT 15.3 K/ L 3.5-10.5 H (BEAKER) (test code = 775) RED BLOOD CELL COUNT 2.78 M/ L 4.63-6.08 L (BEAKER) (test code = 761) HEMOGLOBIN (BEAKER) 8.6 GM/DL 13.7-17.5 L (test code = 410) HEMATOCRIT (BEAKER) 25.7 % 40.1-51.0 L (test code = 411) MEAN CORPUSCULAR 92.4 fL 79.0-92.2 H Discordant result VOLUME (BEAKER) (test compar ed to previous code = 753) result; clinica l correlation required. MEAN CORPUSCULAR 30.9 pg 25.7-32.2 HEMOGLOBIN (BEAKER) (test code = 751) MEAN CORPUSCULAR 33.5 GM/DL 32.3-36.5 HEMOGLOBIN CONC (BEAKER) (test code = 752) RED CELL DISTRIBUTION 18.6 % 11.6-14.4 H WIDTH (BEAKER) (test code = 412) PLATELET COUNT 342 K/CU MM 150-450 (BEAKER) (test code = 756) MEAN PLATELET VOLUME 9.8 fL 9.4-12.4 (BEAKER) (test code = 754) NUCLEATED RED BLOOD 0 /100 WBC 0-0 CELLS (BEAKER) (test code = 413) NEUTROPHILS RELATIVE 70 % PERCENT (BEAKER) (test code = 429) LYMPHOCYTES RELATIVE 20 % PERCENT (BEAKER) (test code = 430) MONOCYTES RELATIVE 7 % PERCENT (BEAKER) (test code = 431) EOSINOPHILS RELATIVE 1 % PERCENT (BEAKER) (test code = 432) BASOPHILS RELATIVE 0 % PERCENT (BEAKER) (test code = 437) NEUTROPHILS ABSOLUTE 10.67 K/ L 1.78-5.38 H COUNT (BEAKER) (test code = 670) LYMPHOCYTES ABSOLUTE 2.98 K/ L 1.32-3.57 COUNT (BEAKER) (test code = 414) MONOCYTES ABSOLUTE 1.05 K/ L 0.30-0.82 H COUNT (BEAKER) (test code = 415) EOSINOPHILS ABSOLUTE 0.11 K/ L 0.04-0.54 COUNT (BEAKER) (test code = 416) BASOPHILS ABSOLUTE 0.03 K/ L 0.01-0.08 COUNT (BEAKER) (test code = 417) IMMATURE 3 % 0-1 H GRANULOCYTES-RELATIVE PERCENT (BEAKER) (test code = 2801) POCT-GLUCOSE [id number] 06:09:00 Test Item Value Reference Range Interpretation Comments POC-GLUCOSE METER 155 mg/dL 70-110 H TESTED AT [facility] 6720 (BEAKER) (test code = [facility] 153) [id number] RAD, ABDOMEN/KUB, 1 VIEW [id number] 02:10:00Reason for exam:->Diffuse abdominal painFINAL REPORT Examination: Supine abdomen CLINICAL INDICATION: Diffuse abdominal pain IMPRESSION: Compared with log tumbler image from abdominal CT performed 03/22/2018. A right-sided abdominal incision is again noted which has been closed with surgical alverto. There is an adjacent surgical drain, grossly stable in position. Gaseous distention of the stomach and small bowel is again noted and similar to previous, nonspecific but concerning for possible postoperative ileus. Patient may benefit from nasogastric tube decompression if clinically appropriate. Evaluation for free air below the diaphragm and air-fluid levels within the bowel is limited by supine patient positioning. Asymmetric increased attenuation is again noted projecting over the right side of the lower thorax and right upper abdomen, most conspicuous near the surgical drain compatible with the patient's known lower thoracic-abdominal wall hematoma, grossly similar to previous. If there is clinical concern for an expanding hematoma, consider follow-up CT imaging as today's examination is limited. Results discussedwith the neurosurgical nurse caring for the patient at 0200 hours. Signed: Tony Nevarez Verified Date/Time: 03/23/2018 02:10:42 Reading Location: [address] Reading Room RAD, CHEST, 1 VIEW, NON [id number] 02:06:00Reason for exam:- >Labored breathingShould this be performed at the bedside?->YesFINAL REPORT EXAMINATION: AP PORTABLE CHEST RADIOGRAPH CLINICAL INDICATION: Labored breathing IMPRESSION: Compared with 03/21/2018 The heart is enlarged but stable. Mediastinal contours are grossly unchanged. A right-sided pleural effusion is again suspected, grossly stable. Curvilinear patchy opacities persist in both lungs, most conspicuous in the perihilar regions and lung bases. A component of atelectasis is favored. Mild superimposed pulmonary edema should also be considered. An underlying pneumonia cannot be excluded. No evidence of new lung consolidation or pneumothorax. In summary, no significant interval change. Results discussed with the neurosurgical nurse caring for the patient at the time of dictation. Signed: Tony Nevarez Verified Date/Time: 03/23/201802:06:45 Reading Location: [address] Reading Room -GLUCOSE [id number] 01:49:00 Test Item Value Reference Range Interpretation Comments POC-GLUCOSE METER 154 mg/dL 70-110 H TESTED AT [facility] 67[address] ([place]) (test code = CHACHA VASQUEZ [facility]8) [address] PROTHROMBIN [id number] 22:17:00 Test Item Value Reference Range Interpretation Comments PROTIME (BEAKER) (test code = 34.2 seconds 11.7-14.7 H 759) INR (BEAKER) (test code = 370) 3.4 <=5.9 RECOMMENDED COUMADIN/WARFARIN INR THERAPY RANGESSTANDARD DOSE: 2.0 - 3.0 Includes: PROPHYLAXIS forvenous thrombosis, systemic embolization; TREATMENT for venous thrombosis and/or pulmonary embolus.HIGH RISK: Target INR is 2.5-3.5 for patients with mechanical heart valves.HEMOGLOBIN AND [id number] 22:07:00 Test Item Value Reference Range Interpretation Comments HEMOGLOBIN (BEAKER) (test code = 6.9 GM/DL 13.7-17.5 L 410) HEMATOCRIT (BEAKER) (test code = 21.2 % 40.1-51.0 L 411) CT, [id number] 14:34:00FINAL REPORT CT scan of the abdomen and pelvis. MEDICAL HISTORY: Abdominal distention. COMPARISON STUDY: Ultrasound dated March 22, 2018. TECHNIQUE: Contiguous helical slices were acquired through the abdomen and pelvis post administration of oral and intravenous contrast. This exam was performed according to our department dose optimization program which includes automated exposure control, adjustment of the mA and/or kV according to the patient's size and/or use of iterative reconstruction technique. FINDINGS: There is a mild to moderate right-sided and small left-sided pleural effusion with adjacent atelectasis or consolidation. Valvular calcification is seen. The liver, spleen, pancreas, and adrenal glands are unremarkable. A 2.7 x 2.4 cm cyst is seen in the left kidney. There is a low-attenuation right renal lesion. No dilated loops of bowel are seen suggest obstruction. Diverticulosis is noted without evidence of diverticulitis. Some thickening of the ascending colon is seen which may be secondary in nature. A normal appendix is seen. There is presacral edema. Some gas is noted in the bladder. The aorta is normal in caliber. Atherosclerosis is seen. Post cholecy stectomy changes are seen with a drainage catheter in the gallbladder fossa and a 5.5 x 2.8 cm focusof fluid and gas in the gallbladder fossa. A large right- sided rectus hematoma is seen measuring 16.1 x 4.6 cm in maximal transverse diameter. It measures approximately 29.5 cm in length. Extensive stranding is seen throughout the subcutaneous tissues of the right abdomen extending to the back, eitheredema or tracking blood. Stranding is also seen in the region of the hepatic flexure which could represent edema or blood. Bone windows demonstrate degenerative changes. IMPRESSION:1. Large right-sidedrectus hematoma. Fluid/fluid levels are seen and active bleeding cannot be excluded.2. Stranding, possibly blood or fluid tracking along the subcutaneous tissues of the right side of the abdomen towards the back.3. Moderate right-sided and small left- sided pleural effusion with adjacent atelectasis orconsolidation.4. Postsurgical changes related to cholecystectomy with some fluid and gas in the gallbladder fossa which may be postsurgical in nature.5. Other findings as described above. A verbal report was given to the patient's nurse, Maryjane at the time of dictation. Critical findings were relayed to Dr. Laureano at the time of dictation. Signed: Leeann Gagnon MDRgr[facility]in [facility] Verified Date/Time: 03/22/2018 14:34:23 Reading Location: [facility] [id number] Ortho Consult Reading Room PROTHROMBIN [id number] 08:57:00 Test Item Value Reference Range Interpretation Comments PROTIME (BEAKER) (test code = 43.1 seconds 11.7-14.7 H 759) INR (BEAKER) (test code = 370) 4.6 <=5.9 RECOMMENDED COUMADIN/WARFARIN INR THERAPY RANGESSTANDARD DOSE: 2.0 - 3.0 Includes: PROPHYLAXIS forvenous thrombosis, systemic embolization; TREATMENT for venous thrombosis and/or pulmonary embolus.HIGH RISK: Target INR is 2.5-3.5 for patients with mechanical heart valves.CBC W/PLT COUNT & AUTO DIFFERENTIAL 2018-03-22 08:49:00 Test Item Value Reference Range Interpretation Comments WHITE BLOOD CELL COUNT (BEAKER) 15.3 K/ L 3.5-10.5 H (test code = 775) RED BLOOD CELL COUNT (BEAKER) 1.70 M/ L 4.63-6.08 L (test code = 761) HEMOGLOBIN (BEAKER) (test code = 5.3 GM/DL 13.7-17.5 LL 410) HEMATOCRIT (BEAKER) (test code = 17.4 % 40.1-51.0 L 411) MEAN CORPUSCULAR VOLUME (BEAKER) 102.4 fL 79.0-92.2 H (test code = 753) MEAN CORPUSCULAR HEMOGLOBIN 31.2 pg 25.7-32.2 (BEAKER) (test code = 751) MEAN CORPUSCULAR HEMOGLOBIN CONC 30.5 GM/DL 32.3-36.5 L (BEAKER) (test code = 752) RED CELL DISTRIBUTION WIDTH 17.6 % 11.6-14.4 H (BEAKER) (test code = 412) PLATELET COUNT (BEAKER) (test 342 K/CU MM 150-450 code = 756) MEAN PLATELET VOLUME (BEAKER) 9.9 fL 9.4-12.4 (test code = 754) NUCLEATED RED BLOOD CELLS 0 /100 WBC 0-0 (BEAKER) (test code = 413) NEUTROPHILS RELATIVE PERCENT 74 % (BEAKER) (test code = 429) LYMPHOCYTES RELATIVE PERCENT 18 % (BEAKER) (test code = 430) MONOCYTES RELATIVE PERCENT 4 % (BEAKER) (test code = 431) EOSINOPHILS RELATIVE PERCENT 1 % (BEAKER) (test code = 432) BASOPHILS RELATIVE PERCENT 0 % (BEAKER) (test code = 437) NEUTROPHILS ABSOLUTE COUNT 11.25 K/ L 1.78-5.38 H (BEAKER) (test code = 670) LYMPHOCYTES ABSOLUTE COUNT 2.76 K/ L 1.32-3.57 (BEAKER) (test code = 414) MONOCYTES ABSOLUTE COUNT (BEAKER) 0.65 K/ L 0.30-0.82 (test code = 415) EOSINOPHILS ABSOLUTE COUNT 0.15 K/ L 0.04-0.54 (BEAKER) (test code = 416) BASOPHILS ABSOLUTE COUNT (BEAKER) 0.03 K/ L 0.01-0.08 (test code = 417) IMMATURE GRANULOCYTES-RELATIVE 3 % 0-1 H PERCENT (BEAKER) (test code = 2801) POCT-GLUCOSE [id number] 07:56:00 Test Item Value Reference Range Interpretation Comments POC-GLUCOSE METER 154 mg/dL 70-110 H TESTED AT [facility] 6720 (BEAKER) (test code = [place] 1538) [address] [id number] 07:17:00 Test Item Value Reference Range Interpretation Comments PHOSPHORUS (BEAKER) (test code = 3.0 mg/dL 2.3-4.7 604) [id number] 07:17:00 Test Item Value Reference Range Interpretation Comments [facility] (test code = 2.2 mg/dL 1.6-2.6 627) PROTHROMBIN [id number] 06:54:00 Test Item Value Reference Range Interpretation Comments PROTIME (BEAKER) (test code = 37.2 seconds 11.7-14.7 H 759) INR ([facility]) (test code = 370) 3.8 <=5.9 RECOMMENDED COUMADIN/WARFARIN INR THERAPY RANGESSTANDARD DOSE: 2.0 - 3.0 Includes: PROPHYLAXIS forvenous thrombosis, systemic embolization; TREATMENT for venous thrombosis and/or pulmonary embolus.HIGH RISK: Target INR is 2.5-3.5 for patients with mechanical heart valves.POCT-GLUCOSE [id number] 05:17:00 Test Item Value Reference Range Interpretation Comments POC-GLUCOSE METER 91 mg/dL 70-110 Notified Kamari Sultana MD/TESTED AT ([facility]) (test code = [place] [address]) [facility] 7703 0 POCT-GLUCOSE [id number] 23:24:00 Test Item Value Reference Range Interpretation Comments POC-GLUCOSE METER 135 mg/dL 70-110 H TESTED AT [place] [address] ([facility]) (test code = CHACHA Benites [facility] 1538) [address] POCT-GLUCOSE [id number] 18:33:00 Test Item Value Reference Range Interpretation Comments POC-GLUCOSE METER 118 mg/dL 70-110 H Notified Kamari Sultana MD/TESTED ([facility]) (test code = AT [place] 320918) [facility] 7703 0 POCT-LACTIC ACID, [id number] 14:32:00 Test Item Value Reference Range Interpretation Comments POC-LACTIC ACID, 0.9 mmol/L 0.9-1.7 TESTED AT [place] [address] VENOUS ([facility]) (test CHACHA Benites [facility] code = 2805) [address] PROTHROMBIN [id number] 14:17:00 Test Item Value Reference Range Interpretation Comments PROTIME (BEAKER) (test code = 33.4 seconds 11.7-14.7 H 759) INR (BEAKER) (test code = 370) 3.3 <=5.9 RECOMMENDED COUMADIN/WARFARIN INR THERAPY RANGESSTANDARD DOSE: 2.0 - 3.0 Includes: PROPHYLAXIS forvenous thrombosis, systemic embolization; TREATMENT for venous thrombosis and/or pulmonary embolus.HIGH RISK: Target INR is 2.5-3.5 for patients with mechanical heart valves.[id number] 14:05:00 Test Item Value Reference Range Interpretation Comments HEMOGLOBIN (BEAKER) (test code = 7.9 GM/DL 13.7-17.5 L 410) POCT-GLUCOSE [id number] 12:15:00 Test Item Value Reference Range Interpretation Comments POC-GLUCOSE METER 104 mg/dL 70-110 Notified R N MD/TESTED (BEAKER) (test code = AT [facility] [address] [facility] 1532) [facility] 7703 0 BLOOD GAS, [id number] 11:39:00 Test Item Value Reference Range Interpretation Comments PH ARTERIAL (BEAKER) (test code = 7.48 7.35-7.45 H 383) PCO2 ARTERIAL (BEAKER) (test code 37 mmHg 35-45 = 384) PO2 ARTERIAL (BEAKER) (test code = 97 mmHg 80-90 H 385) O2 SATURATION ARTERIAL (BEAKER) 97.5 % 96.0-97.0 H (test code = 386) HCO3 ARTERIAL (BEAKER) (test code 26 mmol/L 21-29 = 388) BASE EXCESS ARTERIAL (BEAKER) 2.8 mmol/L -2.0-3.0 (test code = 387) PATIENT TEMPERATURE (BEAKER) (test 38.0 C code = 1818) FIO2 (BEAKER) (test code = 1819) 32.0 % PROTHROMBIN [id number] 11:38:00 Test Item Value Reference Range Interpretation Comments PROTIME (BEAKER) (test code = 34.8 seconds 11.7-14.7 H 759) INR (BEAKER) (test code = 370) 3.5 <=5.9 RECOMMENDED COUMADIN/WARFARIN INR THERAPY RANGESSTANDARD DOSE: 2.0 - 3.0 Includes: PROPHYLAXIS forvenous thrombosis, systemic embolization; TREATMENT for venous thrombosis and/or pulmonary embolus.HIGH RISK: Target INR is 2.5-3.5 for patients with mechanical heart valves.CBC W/PLT COUNT & AUTO DIFFERENTIAL 2018-03-21 10:03:00 Test Item Value Reference Range Interpretation Comments WHITE BLOOD CELL COUNT (BEAKER) 16.0 K/ L 3.5-10.5 H (test code = 775) RED BLOOD CELL COUNT (BEAKER) 2.42 M/ L 4.63-6.08 L (test code = 761) HEMOGLOBIN (BEAKER) (test code = 7.6 GM/DL 13.7-17.5 L 410) HEMATOCRIT (BEAKER) (test code = 24.3 % 40.1-51.0 L 411) MEAN CORPUSCULAR VOLUME (BEAKER) 100.4 fL 79.0-92.2 H (test code = 753) MEAN CORPUSCULAR HEMOGLOBIN 31.4 pg 25.7-32.2 (BEAKER) (test code = 751) MEAN CORPUSCULAR HEMOGLOBIN CONC 31.3 GM/DL 32.3-36.5 L (BEAKER) (test code = 752) RED CELL DISTRIBUTION WIDTH 17.5 % 11.6-14.4 H (BEAKER) (test code = 412) PLATELET COUNT (BEAKER) (test 341 K/CU MM 150-450 code = 756) MEAN PLATELET VOLUME (BEAKER) 9.6 fL 9.4-12.4 (test code = 754) NUCLEATED RED BLOOD CELLS 0 /100 WBC 0-0 (BEAKER) (test code = 413) (CELLAVISION MANUAL DIFF)2018-03-21 10:03:00 Test Item Value Reference Range Interpretation Comments NEUTROPHILS - REL 67 % (CELLAVISION)(BEAKER) (test code = 2816) LYMPHOCYTES - REL 10 % (CELLAVISION)(BEAKER) (test code = 2817) MONOCYTES - REL 2 % (CELLAVISION)(BEAKER) (test code = 2818) EOSINOPHILS - REL 1 % (CELLAVISION)(BEAKER) (test code = 2819) BANDS - REL (CELLAVISION)(BEAKER) 20 % 0-10 H (test code = 2826) NEUTROPHILS - ABS 10.72 K/ul 1.78-5.38 H (CELLAVISION)(BEAKER) (test code = 2830) LYMPHOCYTES - ABS 1.60 K/ul 1.32-3.57 (CELLAVISION)(BEAKER) (test code = 2831) MONOCYTES - ABS 0.32 K/uL 0.30-0.82 (CELLAVISION)(BEAKER) (test code = 2832) EOSINOPHILS - ABS 0.16 K/uL 0.04-0.54 (CELLAVISION)(BEAKER) (test code = 2834) BANDS - ABS (CELLAVISION)(BEAKER) 3.20 K/uL 0.00-0.80 H (test code = 2840) TOTAL COUNTED (BEAKER) (test code 100 = 1351) WBC MORPHOLOGY (BEAKER) (test code Normal = 487) PLT MORPHOLOGY (BEAKER) (test code Normal = 486) POLYCHROMATOPHILLIC RBCS(BEAKER) 1+ few (test code = 478) ANISOCYTOSIS (BEAKER) (test code = 1+ few 961) POIKILOCYTES (BEAKER) (test code = 1+ few 966) ARTIFACT (CELLAVISION)(BEAKER) Present (test code = 3432) PLATELET CONCENTRATION Adequate (CELLAVISION)(BEAKER) (test code = 3438) Received comment: User comments: Slide comments:COMPREHENSIVE METABOLIC PANEL 2018-03-21 07:10:00 Test Item Value Reference Range Interpretation Comments TOTAL PROTEIN 5.7 gm/dL 6.0-8.3 L (BEAKER) (test code = 770) ALBUMIN (BEAKER) 2.7 g/dL 3.5-5.0 L (test code = 1145) ALKALINE PHOSPHATASE 110 U/L 40-150 (BEAKER) (test code = 346) BILIRUBIN TOTAL 1.0 mg/dL 0.2-1.2 (BEAKER) (test code = 377) SODIUM (BEAKER) (test 137 meq/L 136-145 code = 381) POTASSIUM (BEAKER) 3.4 meq/L 3.5-5.1 L (test code = 379) CHLORIDE (BEAKER) 108 meq/L 98-107 H (test code = 382) CO2 (BEAKER) (test 22 meq/L 22-29 code = 355) BLOOD UREA NITROGEN 10 mg/dL 7-21 (BEAKER) (test code = 354) CREATININE (BEAKER) 0.61 mg/dL 0.57-1.25 (test code = 358) GLUCOSE RANDOM 92 mg/dL 70-105 (BEAKER) (test code = 652) CALCIUM (BEAKER) 8.9 mg/dL 8.4-10.2 (test code = 697) AST (SGOT) (BEAKER) 35 U/L 5-34 H (test code = 353) ALT (SGPT) (BEAKER) 24 U/L 6-55 (test code = 347) EGFR (BEAKER) (test 133 ESTIMATE D GFR IS code = 1092) mL/min/1.73 sq NOT ACCURA TE m CREATININE CLEARANCE IN PREDICTING GLOMERULAR FILTRATION RATE . ESTIMATED GFR I S NOT APPLICABLE FOR DIALYSIS PATIEN TS. RAD, ABDOMEN/KUB, 1 VIEW [id number] 06:59:00Reason for exam:->abd distensionFINAL REPORT RAD, ABDOMEN/KUB, 1 VIEW AP INDICATION: abd distension COMPARISON: February 14, 2018 TECHNIQUE: Two AP radiographs of the abdomen were obtained FINDINGS:New surgicalstaples and surgical drain within the right upper quadrant. Bowel gas pattern is nonspecific. Right-sided pleural effusion IMPRESSION:Nondilated gas filled loops of small bowel throughout the abdomen. Stool is present within the right colon. Bowel gas pattern is nonspecific without yary evidence of obstruction. Right pleural effusion. Signed: Ilda Ma MDReport Verified Date/Time: 03/21/2018 06:59:51 Reading Location: [address] Neuro Reading Room RAD, CHEST, 1 VIEW, NON [id number] 06:53:00Reason for exam:->tachypneaShould this be performed at the bedside?->YesFINAL REPORT RAD, CHEST, 1 VIEW, NON DEPT INDICATION: tachypnea COMPARISON: March 19, 2018 FINDINGS: Portable frontal view of the chest. IMPRESSION: Support Lines: Stable. Lungs and pleura: Increased right pleural effusion, bilateral interstitial opacities and bibasilar atelectasis. No pneumothorax.Heart and mediastinum: Stable contours. Stable surgical changes.Additionalfindings: None. Signed: Ilda Ma MDReport Verified Date/Time: 03/21/2018 06:53:46 Reading Location: [facility] Neuro Reading Room POCT-GLUCOSE [id number] 05:17:00 Test Item Value Reference Range Interpretation Comments POC-GLUCOSE METER 102 mg/dL 70-110 TESTED AT [place] [id number] (BEAKER) (test code = CHACHA Benites [place] 1538) [address] POCT-LACTIC ACID, [id number] 04:57:00 Test Item Value Reference Range Interpretation Comments POC-LACTIC ACID, 0.7 mmol/L 0.9-1.7 L TESTED AT [facility] 67[address] [place] (BEAKER) [facility] [place] code = 2805) [address] [id number] 04:55:00 Test Item Value Reference Range Interpretation Comments PHOSPHORUS (BEAKER) (test code = 2.0 mg/dL 2.3-4.7 L 604) [id number] 04:55:00 Test Item Value Reference Range Interpretation Comments MAGNESIUM (BEAKER) (test code = 1.8 mg/dL 1.6-2.6 627) PROTHROMBIN [id number] 04:50:00 Test Item Value Reference Range Interpretation Comments PROTIME (BEAKER) (test code = 35.1 seconds 11.7-14.7 H 759) INR (BEAKER) (test code = 370) 3.5 <=5.9 RECOMMENDED COUMADIN/WARFARIN INR THERAPY RANGESSTANDARD DOSE: 2.0 - 3.0 Includes: PROPHYLAXIS forvenous thrombosis, systemic embolization; TREATMENT for venous thrombosis and/or pulmonary embolus.HIGH RISK: Target INR is 2.5-3.5 for patients with mechanical heart valves.BLOOD GAS, [id number] 00:31:00 Test Item Value Reference Range Interpretation Comments PH VENOUS (BEAKER) (test code = 7.48 7.32-7.42 H 701) PCO2 VENOUS (BEAKER) (test code = 36 mmHg 41-51 L 755) PO2 VENOUS (BEAKER) (test code = 44 mmHg 25-40 H 702) O2 SATURATION VENOUS (BEAKER) 83.8 % 40.0-70.0 H (test code = 703) HCO3 VENOUS (BEAKER) (test code = 26 mmol/L 21-29 705) BASE EXCESS VENOUS (BEAKER) (test 2.8 mmol/L -2.0-3.0 code = 704) PATIENT TEMPERATURE (BEAKER) (test 37.0 C code = 1818) FIO2 (BEAKER) (test code = 1819) 21.0 % BASIC METABOLIC [id number] 23:47:00 Test Item Value Reference Range Interpretation Comments SODIUM (BEAKER) 138 meq/L 136-145 (test code = 381) POTASSIUM (BEAKER) 3.5 meq/L 3.5-5.1 (test code = 379) CHLORIDE (BEAKER) 108 meq/L 98-107 H (test code = 382) CO2 (BEAKER) (test 22 meq/L 22-29 code = 355) BLOOD UREA NITROGEN 10 mg/dL 7-21 (BEAKER) (test code = 354) CREATININE (BEAKER) 0.65 mg/dL 0.57-1.25 (test code = 358) GLUCOSE RANDOM 105 mg/dL 70-105 (BEAKER) (test code = 652) CALCIUM (BEAKER) 8.9 mg/dL 8.4-10.2 (test code = 697) EGFR (BEAKER) (test 123 mL/min/1.73 ESTIM ATED GFR IS code = 1092) sq m NOT ACCURATE CREATININE CLEARANCE IN PREDICTING GLOMERULAR FILTRATION RATE . ESTIMATED GFR I S NOT APPLICABLE FOR DIALYSIS PATIEN TS. PROTHROMBIN [id number] 23:28:00 Test Item Value Reference Range Interpretation Comments PROTIME (BEAKER) (test code = 40.3 seconds 11.7-14.7 H 759) INR (BEAKER) (test code = 370) 4.2 <=5.9 RECOMMENDED COUMADIN/WARFARIN INR THERAPY RANGESSTANDARD DOSE: 2.0 - 3.0 Includes: PROPHYLAXIS forvenous thrombosis, systemic embolization; TREATMENT for venous thrombosis and/or pulmonary embolus.HIGH RISK: Target INR is 2.5-3.5 for patients with mechanical heart valves.CBC W/PLT COUNT & AUTO DIFFERENTIAL 2018-03-20 23:26:00 Test Item Value Reference Range Interpretation Comments WHITE BLOOD CELL COUNT (BEAKER) 17.2 K/ L 3.5-10.5 H (test code = 775) RED BLOOD CELL COUNT (BEAKER) 2.70 M/ L 4.63-6.08 L (test code = 761) HEMOGLOBIN (BEAKER) (test code = 8.5 GM/DL 13.7-17.5 L 410) HEMATOCRIT (BEAKER) (test code = 27.1 % 40.1-51.0 L 411) MEAN CORPUSCULAR VOLUME (BEAKER) 100.4 fL 79.0-92.2 H (test code = 753) MEAN CORPUSCULAR HEMOGLOBIN 31.5 pg 25.7-32.2 (BEAKER) (test code = 751) MEAN CORPUSCULAR HEMOGLOBIN CONC 31.4 GM/DL 32.3-36.5 L (BEAKER) (test code = 752) RED CELL DISTRIBUTION WIDTH 17.5 % 11.6-14.4 H (BEAKER) (test code = 412) PLATELET COUNT (BEAKER) (test 362 K/CU MM 150-450 code = 756) MEAN PLATELET VOLUME (BEAKER) 9.7 fL 9.4-12.4 (test code = 754) NUCLEATED RED BLOOD CELLS 0 /100 WBC 0-0 (BEAKER) (test code = 413) NEUTROPHILS RELATIVE PERCENT 70 % (BEAKER) (test code = 429) LYMPHOCYTES RELATIVE PERCENT 22 % (BEAKER) (test code = 430) MONOCYTES RELATIVE PERCENT 4 % (BEAKER) (test code = 431) EOSINOPHILS RELATIVE PERCENT 1 % (BEAKER) (test code = 432) BASOPHILS RELATIVE PERCENT 0 % (BEAKER) (test code = 437) NEUTROPHILS ABSOLUTE COUNT 12.12 K/ L 1.78-5.38 H (BEAKER) (test code = 670) LYMPHOCYTES ABSOLUTE COUNT 3.77 K/ L 1.32-3.57 H (BEAKER) (test code = 414) MONOCYTES ABSOLUTE COUNT (BEAKER) 0.74 K/ L 0.30-0.82 (test code = 415) EOSINOPHILS ABSOLUTE COUNT 0.08 K/ L 0.04-0.54 (BEAKER) (test code = 416) BASOPHILS ABSOLUTE COUNT (BEAKER) 0.03 K/ L 0.01-0.08 (test code = 417) IMMATURE GRANULOCYTES-RELATIVE 3 % 0-1 H PERCENT (DARIOAKER) (test code = 2801) PROTHROMBIN [id number] 21:16:00 Test Item Value Reference Range Interpretation Comments PROTIME (BEAKER) (test code = 37.3 seconds 11.7-14.7 H 759) INR (BEAKER) (test code = 370) 3.8 <=5.9 RECOMMENDED COUMADIN/WARFARIN INR THERAPY RANGESSTANDARD DOSE: 2.0 - 3.0 Includes: PROPHYLAXIS forvenous thrombosis, systemic embolization; TREATMENT for venous thrombosis and/or pulmonary embolus.HIGH RISK: Target INR is 2.5-3.5 for patients with mechanical heart valves.1 hour after transfusionPOCT-GLUCOSE METER 2018-03-20 17:39:00 Test Item Value Reference Range Interpretation Comments POC-GLUCOSE METER 150 mg/dL 70-110 H TESTED AT [place] [address] ([facility]) (test code = [facility] 1538) [address] LACTIC ACID, VENOUS, WHOLE [id number] 13:15:00 Test Item Value Reference Range Interpretation Comments LACTATE BLOOD VENOUS (2) ([facility]) 1.1 mmol/L 0.5-2.2 (test code = 2872) PROTHROMBIN [id number] 12:55:00 Test Item Value Reference Range Interpretation Comments PROTIME (BELILI) (test code = 34.7 seconds 11.7-14.7 H 759) [facility] (test code = 370) 3.5 <=5.9 RECOMMENDED COUMADIN/WARFARIN INR THERAPY RANGESSTANDARD DOSE: 2.0 - 3.0 Includes: PROPHYLAXIS forvenous thrombosis, systemic embolization; TREATMENT for venous thrombosis and/or pulmonary embolus.HIGH RISK: Target INR is 2.5-3.5 for patients with mechanical heart valves.POCT-GLUCOSE [id number] 12:46:00 Test Item Value Reference Range Interpretation Comments POC-GLUCOSE METER 127 mg/dL 70-110 H TESTED AT [place] [address] ([facility]) (test code = [facility] [place] 1538) [address] LACTIC ACID, VENOUS, WHOLE [id number] 09:11:00 Test Item Value Reference Range Interpretation Comments LACTATE BLOOD VENOUS (2) (AKER) 1.2 mmol/L 0.5-2.2 (test code = 2872) POCT-GLUCOSE [id number] 08:34:00 Test Item Value Reference Range Interpretation Comments POC-GLUCOSE METER 128 mg/dL 70-110 H TESTED AT [facility] 6720 (BEAKER) (test code = [place] 1538) [address] CBC W/PLT COUNT & AUTO [id number] 06:51:00 Test Item Value Reference Range Interpretation Comments WHITE BLOOD CELL COUNT (BEAKER) 12.1 K/ L 3.5-10.5 H (test code = 775) RED BLOOD CELL COUNT (BEAKER) 2.92 M/ L 4.63-6.08 L (test code = 761) HEMOGLOBIN (BEAKER) (test code = 9.4 GM/DL 13.7-17.5 L 410) HEMATOCRIT (BEAKER) (test code = 30.0 % 40.1-51.0 L 411) MEAN CORPUSCULAR VOLUME (BEAKER) 102.7 fL 79.0-92.2 H (test code = 753) MEAN CORPUSCULAR HEMOGLOBIN 32.2 pg 25.7-32.2 (BEAKER) (test code = 751) MEAN CORPUSCULAR HEMOGLOBIN CONC 31.3 GM/DL 32.3-36.5 L (BEAKER) (test code = 752) RED CELL DISTRIBUTION WIDTH 17.3 % 11.6-14.4 H (BEAKER) (test code = 412) PLATELET COUNT (BEAKER) (test 308 K/CU MM 150-450 code = 756) MEAN PLATELET VOLUME (BEAKER) 9.6 fL 9.4-12.4 (test code = 754) NUCLEATED RED BLOOD CELLS 0 /100 WBC 0-0 (BEAKER) (test code = 413) (CELLAVISION MANUAL DIFF)2018-03-20 06:51:00 Test Item Value Reference Range Interpretation Comments NEUTROPHILS - REL 75 % (CELLAVISION)(BEAKER) (test code = 2816) LYMPHOCYTES - REL 10 % (CELLAVISION)(BEAKER) (test code = 2817) MONOCYTES - REL 3 % (CELLAVISION)(BEAKER) (test code = 2818) BANDS - REL (CELLAVISION)(BEAKER) 12 % 0-10 H (test code = 2826) NEUTROPHILS - ABS 9.08 K/ul 1.78-5.38 H (CELLAVISION)(BEAKER) (test code = 2830) LYMPHOCYTES - ABS 1.21 K/ul 1.32-3.57 L (CELLAVISION)(BEAKER) (test code = 2831) MONOCYTES - ABS 0.36 K/uL 0.30-0.82 (CELLAVISION)(BEAKER) (test code = 2832) BANDS - ABS (CELLAVISION)(BEAKER) 1.45 K/uL 0.00-0.80 H (test code = 2840) TOTAL COUNTED (BEAKER) (test code = 100 1351) WBC MORPHOLOGY (BEAKER) (test code Normal = 487) PLT MORPHOLOGY (BEAKER) (test code Normal = 486) POLYCHROMATOPHILLIC RBCS(BEAKER) 1+ few (test code = 478) ARTIFACT (CELLAVISION)(BEAKER) Present (test code = 3432) PLATELET CONCENTRATION Adequate (CELLAVISION)(BEAKER) (test code = 3438) Received comment: User comments: Slide comments:POCT-GLUCOSE [id number] 06:38:00 Test Item Value Reference Range Interpretation Comments POC-GLUCOSE METER 110 mg/dL 70-110 TESTED AT [facility] 6720 (BEAKER) (test code = CHACHA Benites [place] 1538) [address] [id number] 05:30:00 Test Item Value Reference Range Interpretation Comments PHOSPHORUS (BEAKER) (test code = 1.9 mg/dL 2.3-4.7 L 604) [id number] 05:30:00 Test Item Value Reference Range Interpretation Comments MAGNESIUM (BEAKER) (test code = 2.0 mg/dL 1.6-2.6 627) LACTIC ACID, VENOUS, WHOLE [id number] 04:19:00 Test Item Value Reference Range Interpretation Comments LACTATE BLOOD VENOUS (2) (BEAKER) 1.3 mmol/L 0.5-2.2 (test code = 2872) PROTHROMBIN [id number] 04:00:00 Test Item Value Reference Range Interpretation Comments PROTIME (BEAKER) (test code = 33.3 seconds 11.7-14.7 H 759) INR (BEAKER) (test code = 370) 3.3 <=5.9 RECOMMENDED COUMADIN/WARFARIN INR THERAPY RANGESSTANDARD DOSE: 2.0 - 3.0 Includes: PROPHYLAXIS forvenous thrombosis, systemic embolization; TREATMENT for venous thrombosis and/or pulmonary embolus.HIGH RISK: Target INR is 2.5-3.5 for patients with mechanical heart valves.LACTIC ACID, VENOUS, WHOLE [id number] 02:24:00 Test Item Value Reference Range Interpretation Comments LACTATE BLOOD VENOUS (2) (BEAKER) 1.1 mmol/L 0.5-2.2 (test code = 2872) POCT-GLUCOSE [id number] 00:24:00 Test Item Value Reference Range Interpretation Comments POC-GLUCOSE METER 88 mg/dL 70-110 TESTED AT [facility] 6720 (BEAKER) (test code = CHACHA Benites [facility] [address] 1538) CBC W/PLT COUNT & AUTO [id number] 22:44:00 Test Item Value Reference Range Interpretation Comments WHITE BLOOD CELL COUNT (BEAKER) 11.7 K/ L 3.5-10.5 H (test code = 775) RED BLOOD CELL COUNT (BEAKER) 2.86 M/ L 4.63-6.08 L (test code = 761) HEMOGLOBIN (BEAKER) (test code = 9.0 GM/DL 13.7-17.5 L 410) HEMATOCRIT (BEAKER) (test code = 29.1 % 40.1-51.0 L 411) MEAN CORPUSCULAR VOLUME (BEAKER) 101.7 fL 79.0-92.2 H (test code = 753) MEAN CORPUSCULAR HEMOGLOBIN 31.5 pg 25.7-32.2 (BEAKER) (test code = 751) MEAN CORPUSCULAR HEMOGLOBIN CONC 30.9 GM/DL 32.3-36.5 L (BEAKER) (test code = 752) RED CELL DISTRIBUTION WIDTH 17.4 % 11.6-14.4 H (BEAKER) (test code = 412) PLATELET COUNT (BEAKER) (test 324 K/CU MM 150-450 code = 756) MEAN PLATELET VOLUME (BEAKER) 9.4 fL 9.4-12.4 (test code = 754) NUCLEATED RED BLOOD CELLS 0 /100 WBC 0-0 (BEAKER) (test code = 413) (CELLAVISION MANUAL DIFF)2018-03-19 22:44:00 Test Item Value Reference Range Interpretation Comments NEUTROPHILS - REL 72 % (CELLAVISION)(BEAKER) (test code = 2816) LYMPHOCYTES - REL 10 % (CELLAVISION)(BEAKER) (test code = 2817) MONOCYTES - REL 3 % (CELLAVISION)(BEAKER) (test code = 2818) METAMYELOCYTES - REL 1 % 0-0 H (CELLAVISION)(BEAKER) (test code = 2821) BANDS - REL (CELLAVISION)(BEAKER) 14 % 0-10 H (test code = 2826) NEUTROPHILS - ABS 8.42 K/ul 1.78-5.38 H (CELLAVISION)(BEAKER) (test code = 2830) LYMPHOCYTES - ABS 1.17 K/ul 1.32-3.57 L (CELLAVISION)(BEAKER) (test code = 2831) MONOCYTES - ABS 0.35 K/uL 0.30-0.82 (CELLAVISION)(BEAKER) (test code = 2832) METAMYELOCYTES - ABS 0.12 K/uL 0.00-0.00 H (CELLAVISION)(BEAKER) (test code = 2836) BANDS - ABS (CELLAVISION)(BEAKER) 1.64 K/uL 0.00-0.80 H (test code = 2840) TOTAL COUNTED (BEAKER) (test code = 100 1351) WBC MORPHOLOGY (BEAKER) (test code Normal = 487) GIANT PLATELETS (BEAKER) (test code Present = 313) POIKILOCYTES (BEAKER) (test code = 1+ few 966) TARGET CELLS (BEAKER) (test code = 1+ few 480) ELLIPTOCYTES (BEAKER) (test code = 1+ few 962) ARTIFACT (CELLAVISION)(BEAKER) Present (test code = 3432) PLATELET CONCENTRATION Adequate (CELLAVISION)(BEAKER) (test code = 3438) Received comment: User comments: Slide comments:[id number] 22:34:00 Test Item Value Reference Range Interpretation Comments PHOSPHORUS (BEAKER) (test code = 2.5 mg/dL 2.3-4.7 604) [id number] 22:34:00 Test Item Value Reference Range Interpretation Comments MAGNESIUM (BEAKER) (test code = 2.1 mg/dL 1.6-2.6 627) COMPREHENSIVE METABOLIC [id number] 22:34:00 Test Item Value Reference Range Interpretation Comments TOTAL PROTEIN 6.2 gm/dL 6.0-8.3 (BEAKER) (test code = 770) ALBUMIN (BEAKER) 2.9 g/dL 3.5-5.0 L (test code = 1145) ALKALINE PHOSPHATASE 135 U/L 40-150 (BEAKER) (test code = 346) BILIRUBIN TOTAL 1.2 mg/dL 0.2-1.2 (BEAKER) (test code = 377) SODIUM (BEAKER) (test 137 meq/L 136-145 code = 381) POTASSIUM (BEAKER) 3.6 meq/L 3.5-5.1 (test code = 379) CHLORIDE (BEAKER) 107 meq/L 98-107 (test code = 382) CO2 (BEAKER) (test 23 meq/L 22-29 code = 355) BLOOD UREA NITROGEN 13 mg/dL 7-21 (BEAKER) (test code = 354) CREATININE (BEAKER) 0.67 mg/dL 0.57-1.25 (test code = 358) GLUCOSE RANDOM 95 mg/dL 70-105 (BEAKER) (test code = 652) CALCIUM (BEAKER) 8.7 mg/dL 8.4-10.2 (test code = 697) AST (SGOT) (BEAKER) 50 U/L 5-34 H (test code = 353) ALT (SGPT) (BEAKER) 35 U/L 6-55 (test code = 347) EGFR (BEAKER) (test 119 ESTIMATE D GFR IS code = 1092) mL/min/1.73 sq NOT ACCURA TE m CREATININE CLEARANCE IN PREDICTING GLOMERULAR FILTRATION RATE . ESTIMATED GFR I S NOT APPLICABLE FOR DIALYSIS PATIEN TS. LACTIC ACID, VENOUS, WHOLE [id number] 22:22:00 Test Item Value Reference Range Interpretation Comments LACTATE BLOOD VENOUS 0.9 mmol/L 0.5-2.2 Specime n slightly (2) (BEAKER) (test hemolyzed code = 2872) [id number] 22:19:00 Test Item Value Reference Range Interpretation Comments PROTIME (BEAKER) (test code = 27.3 seconds 11.7-14.7 H 759) INR (BEAKER) (test code = 370) 2.5 <=5.9 PARTIAL THROMBOPLASTIN TIME 51.9 seconds 22.5-36.0 H (BEAKER) (test code = 760) RECOMMENDED COUMADIN/WARFARIN INR THERAPY RANGESSTANDARD DOSE: 2.0 - 3.0 Includes: PROPHYLAXIS forvenous thrombosis, systemic embolization; TREATMENT for venous thrombosis and/or pulmonary embolus.HIGH RISK: Target INR is 2.5-3.5 for patients with mechanical heart valves.RAD, CHEST, 1 VIEW, NON [id number] 22:15:00Reason for exam:->postopShould this be performed at the bedside?->YesFINAL REPORT History: Postoperative evaluation. FINDINGS: Compared with February 11, 2018, the lung findings have decreased. Mild increased pulmonary airspace opacity is present,possibly representing edema or pneumonia. Small bilateral pleural effusions are also suspected. No pneumothorax. The heart and mediastinum are stable. As before, the heart is enlarged. Multiple sternalwires are present, consistent with median sternotomy. Bones are unremarkable. IMPRESSION: 1. Decreased lung volumes and mild increase in bilateral pulmonary airspace opacities since the previous study,possibly representing edema or pneumonia. 2. Cardiomegaly, unchanged. Signed: Ginna Spear MDReportVerified Date/Time: 03/19/2018 22:15:19 Reading Location: [facility] Diagnostic Imaging Reading Room - [place] [address] PROTHROMBIN [id number] 16:40:00 Test Item Value Reference Range Interpretation Comments PROTIME (BEAKER) (test code = 25.9 seconds 11.7-14.7 H 759) INR (BEAKER) (test code = 370) 2.4 <=5.9 RECOMMENDED COUMADIN/WARFARIN INR THERAPY RANGESSTANDARD DOSE: 2.0 - 3.0 Includes: PROPHYLAXIS forvenous thrombosis, systemic embolization; TREATMENT for venous thrombosis and/or pulmonary embolus.HIGH RISK: Target INR is 2.5-3.5 for patients with mechanical heart valves.CALCIUM, [id number] 16:01:00 Test Item Value Reference Range Interpretation Comments CALCIUM IONIZED (BEAKER) (test 1.09 mmol/L 1.12-1.27 L code = 698) PH, BLOOD (BEAKER) (test code = 7.44 1810) HEMATOCRIT-STAT [id number] 16:01:00 Test Item Value Reference Range Interpretation Comments HEMATOCRIT (BEAKER) (test code = 411) 29.0 % 40.0-50.0 L HEMOGLOBIN-STAT [id number] 16:01:00 Test Item Value Reference Range Interpretation Comments HEMOGLOBIN (BEAKER) (test code = 9.7 g/dL 13.0-16.8 L 410) POTASSIUM-STAT [id number] 16:01:00 Test Item Value Reference Range Interpretation Comments POTASSIUM (BEAKER) (test code = 3.2 meq/L 3.6-5.5 L 379) HGB/HCT (H&H) - STAT [id number] 16:01:00 Test Item Value Reference Range Interpretation Comments HEMOGLOBIN (BEAKER) (test code = 9.7 GM/DL 13.0-16.8 L 410) HEMATOCRIT (BEAKER) (test code = 29.0 % 40.0-50.0 L 411) BLOOD GAS, [id number] 16:00:00 Test Item Value Reference Range Interpretation Comments PH ARTERIAL (BEAKER) (test code = 7.44 7.35-7.45 383) PCO2 ARTERIAL (BEAKER) (test code 36 mmHg 35-45 = 384) PO2 ARTERIAL (BEAKER) (test code = 81 mmHg 80-90 385) O2 SATURATION ARTERIAL (BEAKER) 96.4 % 96.0-97.0 (test code = 386) HCO3 ARTERIAL (BEAKER) (test code 24 mmol/L 21-29 = 388) BASE EXCESS ARTERIAL (BEAKER) 0.2 mmol/L -2.0-3.0 (test code = 387) PATIENT TEMPERATURE (BEAKER) (test 37.0 C code = 1812) GLUCOSE-STAT [id number] 16:00:00 Test Item Value Reference Range Interpretation Comments GLUCOSE RANDOM (BEAKER) (test code = 96 mg/dL 70-110 652) SODIUM NA-STAT [id number] 16:00:00 Test Item Value Reference Range Interpretation Comments SODIUM (BEAKER) (test code = 381) 138 meq/L 135-148 PROTHROMBIN TIME/[id number] 10:50:00 Test Item Value Reference Range Interpretation Comments PROTIME (BEAKER) (test code = 29.5 seconds 11.7-14.7 H 759) INR (BEAKER) (test code = 370) 2.8 <=5.9 RECOMMENDED COUMADIN/WARFARIN INR THERAPY RANGESSTANDARD DOSE: 2.0 - 3.0 Includes: PROPHYLAXIS forvenous thrombosis, systemic embolization; TREATMENT for venous thrombosis and/or pulmonary embolus.HIGH RISK: Target INR is 2.5-3.5 for patients with mechanical heart valves.CT, BRAIN, WITHOUT [id number] 10:45:00FINAL REPORT CT, BRAIN, WITHOUT CONTRAST INDICATION: Intracranial hemorrhageINR 12 recently, new onset neuro symptoms TECHNIQUE: Noncontrast axial imaging was obtained from the vertex to the skull base. Axial images were reconstructed using a bone algorithm. DOSE REDUCTION: Dosemodulation, iterative reconstruction, and/or weight-based adjustment of the mA/kV was utilized to reduce the radiation dose to as low as reasonably achievable. COMPARISON: February 13, 2018 FINDINGS: Cerebral parenchyma: Diffuse parenchymal volume loss. No discernible infarct or parenchymal hemorrhage. Midline structures: Normally positioned.Cerebellum and brainstem: Commensurate volume loss.Ventricles: Normal volume.Extra-axial spaces: Unremarkable. Calvarium and skull base: Intact.Paranasal sinusesand mastoid air cells: Visible chambers are clear.Orbital contents: Included portions unremarkable. Additional findings: None. IMPRESSION: Chronic involutional changes without acute intracranial abnormality. If there is persistent clinical concern for intracranial pathology, MR examination is recommended for further characterization. Signed: JR Muñoz Robert MDReport Verified Date/Time: 03/19/2018 10:45:14 Reading Location: [address] Neuro Reading Room HROMBIN TIME/[id number] 06:27:00 Test Item Value Reference Range Interpretation Comments PROTIME (BEAKER) (test code = 34.3 seconds 11.7-14.7 H 759) INR (BEAKER) (test code = 370) 3.4 <=5.9 RECOMMENDED COUMADIN/WARFARIN INR THERAPY RANGESSTANDARD DOSE: 2.0 - 3.0 Includes: PROPHYLAXIS forvenous thrombosis, systemic embolization; TREATMENT for venous thrombosis and/or pulmonary embolus.HIGH RISK: Target INR is 2.5-3.5 for patients with mechanical heart valves.PT/[id number] 01:58:00 Test Item Value Reference Range Interpretation Comments PROTIME (BEAKER) (test code = 33.1 seconds 11.7-14.7 H 759) INR (BEAKER) (test code = 370) 3.2 <=5.9 PARTIAL THROMBOPLASTIN TIME 86.7 seconds 22.5-36.0 H (BEAKER) (test code = 760) RECOMMENDED COUMADIN/WARFARIN INR THERAPY RANGESSTANDARD DOSE: 2.0 - 3.0 Includes: PROPHYLAXIS forvenous thrombosis, systemic embolization; TREATMENT for venous thrombosis and/or pulmonary embolus.HIGH RISK: Target INR is 2.5-3.5 for patients with mechanical heart valves.PROTHROMBIN TIME/[id number] 01:56:00 Test Item Value Reference Range Interpretation Comments PROTIME (BEAKER) (test code = 33.1 seconds 11.7-14.7 H 759) INR (BEAKER) (test code = 370) 3.2 <=5.9 RECOMMENDED COUMADIN/WARFARIN INR THERAPY RANGESSTANDARD DOSE: 2.0 - 3.0 Includes: PROPHYLAXIS forvenous thrombosis, systemic embolization; TREATMENT for venous thrombosis and/or pulmonary embolus.HIGH RISK: Target INR is 2.5-3.5 for patients with mechanical heart valves.[id number] 01:50:00 Test Item Value Reference Range Interpretation Comments PHOSPHORUS (BEAKER) (test code = 1.9 mg/dL 2.3-4.7 L 604) [id number] 01:50:00 Test Item Value Reference Range Interpretation Comments MAGNESIUM (BEAKER) (test code = 2.3 mg/dL 1.6-2.6 627) BASIC METABOLIC [id number] 01:50:00 Test Item Value Reference Range Interpretation Comments SODIUM (BEAKER) 136 meq/L 136-145 (test code = 381) POTASSIUM (BEAKER) 3.6 meq/L 3.5-5.1 (test code = 379) CHLORIDE (BEAKER) 106 meq/L 98-107 (test code = 382) CO2 (BEAKER) (test 23 meq/L 22-29 code = 355) BLOOD UREA NITROGEN 19 mg/dL 7-21 (BEAKER) (test code = 354) CREATININE (BEAKER) 0.63 mg/dL 0.57-1.25 (test code = 358) GLUCOSE RANDOM 120 mg/dL 70-105 H (BEAKER) (test code = 652) CALCIUM (BEAKER) 9.5 mg/dL 8.4-10.2 (test code = 697) EGFR (BEAKER) (test 128 mL/min/1.73 ESTIM ATED GFR IS code = 1092) sq m NOT ACCURATE CREATININE CLEARANCE IN PREDICTING GLOMERULAR FILTRATION RATE . ESTIMATED GFR I S NOT APPLICABLE FOR DIALYSIS PATIEN TS. HEPATIC FUNCTION [id number] 01:50:00 Test Item Value Reference Range Interpretation Comments TOTAL PROTEIN (BEAKER) (test code = 6.6 gm/dL 6.0-8.3 770) ALBUMIN (BEAKER) (test code = 1145) 2.9 g/dL 3.5-5.0 L BILIRUBIN TOTAL (BEAKER) (test code 1.4 mg/dL 0.2-1.2 H = 377) BILIRUBIN DIRECT (BEAKER) (test 0.9 mg/dL 0.1-0.5 H code = 706) ALKALINE PHOSPHATASE (BEAKER) (test 167 U/L 40-150 H code = 346) AST (SGOT) (BEAKER) (test code = 43 U/L 5-34 H 353) ALT (SGPT) (BEAKER) (test code = 44 U/L 6-55 347) CBC (HEMOGRAM ONLY)2018-03-19 01:35:00 Test Item Value Reference Range Interpretation Comments WHITE BLOOD CELL COUNT (BEAKER) 11.7 K/ L 3.5-10.5 H (test code = 775) RED BLOOD CELL COUNT (BEAKER) 3.20 M/ L 4.63-6.08 L (test code = 761) HEMOGLOBIN (BEAKER) (test code = 9.9 GM/DL 13.7-17.5 L 410) HEMATOCRIT (BEAKER) (test code = 32.2 % 40.1-51.0 L 411) MEAN CORPUSCULAR VOLUME (BEAKER) 100.6 fL 79.0-92.2 H (test code = 753) MEAN CORPUSCULAR HEMOGLOBIN 30.9 pg 25.7-32.2 (BEAKER) (test code = 751) MEAN CORPUSCULAR HEMOGLOBIN CONC 30.7 GM/DL 32.3-36.5 L (BEAKER) (test code = 752) RED CELL DISTRIBUTION WIDTH 17.0 % 11.6-14.4 H (BEAKER) (test code = 412) PLATELET COUNT (BEAKER) (test 294 K/CU MM 150-450 code = 756) MEAN PLATELET VOLUME (BEAKER) 9.3 fL 9.4-12.4 L (test code = 754) NUCLEATED RED BLOOD CELLS 0 /100 WBC 0-0 (BEAKER) (test code = 413) PROTHROMBIN [id number] 22:29:00 Test Item Value Reference Range Interpretation Comments PROTIME (BEAKER) (test code = 37.7 seconds 11.7-14.7 H 759) INR (BEAKER) (test code = 370) 3.8 <=5.9 RECOMMENDED COUMADIN/WARFARIN INR THERAPY RANGESSTANDARD DOSE: 2.0 - 3.0 Includes: PROPHYLAXIS forvenous thrombosis, systemic embolization; TREATMENT for venous thrombosis and/or pulmonary embolus.HIGH RISK: Target INR is 2.5-3.5 for patients with mechanical heart valves.[id number] 08:02:00 Test Item Value Reference Range Interpretation Comments TRANSFERRIN (BEAKER) (test code = 132 mg/dL 174-382 L 541) [id number] 08:02:00 Test Item Value Reference Range Interpretation Comments PREALBUMIN (BEAKER) (test code = 586) 7 mg/dL 14-45 L [id number] 07:23:00 Test Item Value Reference Range Interpretation Comments MAGNESIUM (BEAKER) (test code = 2.4 mg/dL 1.6-2.6 627) BASIC METABOLIC [id number] 07:23:00 Test Item Value Reference Range Interpretation Comments SODIUM (BEAKER) 132 meq/L 136-145 L (test code = 381) POTASSIUM (BEAKER) 3.3 meq/L 3.5-5.1 L (test code = 379) CHLORIDE (BEAKER) 100 meq/L 98-107 (test code = 382) CO2 (BEAKER) (test 26 meq/L 22-29 code = 355) BLOOD UREA NITROGEN 22 mg/dL 7-21 H (BEAKER) (test code = 354) CREATININE (BEAKER) 0.75 mg/dL 0.57-1.25 (test code = 358) GLUCOSE RANDOM 99 mg/dL 70-105 (BEAKER) (test code = 652) CALCIUM (BEAKER) 9.3 mg/dL 8.4-10.2 (test code = 697) EGFR (BEAKER) (test 105 mL/min/1.73 ESTIM ATED GFR IS code = 1092) sq m NOT ACCURATE CREATININE CLEARANCE IN PREDICTING GLOMERULAR FILTRATION RATE . ESTIMATED GFR I S NOT APPLICABLE FOR DIALYSIS PATIEN TS. HEPATIC FUNCTION [id number] 07:23:00 Test Item Value Reference Range Interpretation Comments TOTAL PROTEIN (BEAKER) (test code = 6.6 gm/dL 6.0-8.3 770) ALBUMIN (BEAKER) (test code = 1145) 2.9 g/dL 3.5-5.0 L BILIRUBIN TOTAL (BEAKER) (test code 1.6 mg/dL 0.2-1.2 H = 377) BILIRUBIN DIRECT (BEAKER) (test 0.9 mg/dL 0.1-0.5 H code = 706) ALKALINE PHOSPHATASE (BEAKER) (test 169 U/L 40-150 H code = 346) AST (SGOT) (BEAKER) (test code = 36 U/L 5-34 H 353) ALT (SGPT) (BEAKER) (test code = 48 U/L 6-55 347) [id number] 07:22:00 Test Item Value Reference Range Interpretation Comments PHOSPHORUS (BEAKER) (test code = 2.3 mg/dL 2.3-4.7 604) [id number] 07:02:00 Test Item Value Reference Range Interpretation Comments PROTIME (BEAKER) (test code = 37.0 seconds 11.7-14.7 H 759) INR (BEAKER) (test code = 370) 3.7 <=5.9 PARTIAL THROMBOPLASTIN TIME 129.1 seconds 22.5-36.0 H (BEAKER) (test code = 760) RECOMMENDED COUMADIN/WARFARIN INR THERAPY RANGESSTANDARD DOSE: 2.0 - 3.0 Includes: PROPHYLAXIS forvenous thrombosis, systemic embolization; TREATMENT for venous thrombosis and/or pulmonary embolus.HIGH RISK: Target INR is 2.5-3.5 for patients with mechanical heart valves.PROTHROMBIN [id number] 06:59:00 Test Item Value Reference Range Interpretation Comments PROTIME (BEAKER) (test code = 37.0 seconds 11.7-14.7 H 759) INR (BEAKER) (test code = 370) 3.7 <=5.9 RECOMMENDED COUMADIN/WARFARIN INR THERAPY RANGESSTANDARD DOSE: 2.0 - 3.0 Includes: PROPHYLAXIS forvenous thrombosis, systemic embolization; TREATMENT for venous thrombosis and/or pulmonary embolus.HIGH RISK: Target INR is 2.5-3.5 for patients with mechanical heart valves.CBC (HEMOGRAM ONLY)2018-03-18 06:49:00 Test Item Value Reference Range Interpretation Comments WHITE BLOOD CELL COUNT (BEAKER) 9.5 K/ L 3.5-10.5 (test code = 775) RED BLOOD CELL COUNT (BEAKER) 3.22 M/ L 4.63-6.08 L (test code = 761) HEMOGLOBIN (BEAKER) (test code = 10.3 GM/DL 13.7-17.5 L 410) HEMATOCRIT (BEAKER) (test code = 31.4 % 40.1-51.0 L 411) MEAN CORPUSCULAR VOLUME (BEAKER) 97.5 fL 79.0-92.2 H (test code = 753) MEAN CORPUSCULAR HEMOGLOBIN 32.0 pg 25.7-32.2 (BEAKER) (test code = 751) MEAN CORPUSCULAR HEMOGLOBIN CONC 32.8 GM/DL 32.3-36.5 (BEAKER) (test code = 752) RED CELL DISTRIBUTION WIDTH 16.6 % 11.6-14.4 H (BEAKER) (test code = 412) PLATELET COUNT (BEAKER) (test 274 K/CU MM 150-450 code = 756) MEAN PLATELET VOLUME (BEAKER) 9.8 fL 9.4-12.4 (test code = 754) NUCLEATED RED BLOOD CELLS 0 /100 WBC 0-0 (BEAKER) (test code = 413) U/S, ABDOMINAL, [id number] 01:42:00Right upper quadrant, Assess Liver with ultrasoundAbdomen limited area? Add comment if clarificationis needed.- >Right upper quadrantRight upper quadrant, Liver ultrasoundReason for exam:- >Right upper quadrant pain, elevated INR, distended gallbladder on CTFINAL REPORT INDICATION: Right upper quadrant pain, elevated INR, distended gallbladder on CT COMPARISON: None TECHNIQUE: Real-time transabdominal sol scale and color Doppler ultrasound of the abdominal right upper quadrant. FINDINGS:Liver: Size: 11cm. Echogenicity:Normal. Masses/lesions: None. Surface Nodularity: Minimal surface nodularity. Intrahepatic bile ducts: Normal. Common bile duct: 0.51cm. MPV: 0.95cm. Gallbladder: Stones: None. Sludge: Present. Wall thickness: 1.4 cm. The gallbladder is markedly distended Pericholecystic fluid: Present. Sonographic Dsouza's sign: Present. Pancreas: Head and uncinate process: Not well evaluated due to bowel gas. Body and tail: Not well evaluated. Right kidney: Size: 10.1 cm. Parenchyma: Normal echogenicity. No cysts. No stones. Hydronephrosis: None. Ascites: None. Regional Vasculature: The visible abdominal aorta, IVC and hepatic veins are patent. Additional Findings: None. IMPRESSION: Thickened gallbladder wall with pericholecystic fluid and positive sonographic Dsouza's. Gallbladder is distended with sludge. Findings are concerning for acute cholecystitis. findings were relayed to Dr. Espinosa at 1:40 AM. Signed: Ilda Ma MDReport Verified Date/Time: 03/18/2018 01:42:08 Reading Location: [address] Neuro Reading Room Electronicallysigned by: ILDA MA MD on 03/18/2018 01:42 AMURINALYSIS W/ MICROSCOPIC 2018-03-17 23:46:00 Test Item Value Reference Range Interpretation Comments COLOR (BEAKER) (test code = Yellow 470) CLARITY (BEAKER) (test code = Clear 469) SPECIFIC GRAVITY UA (BEAKER) 1.038 1.001-1.035 H (test code = 468) PH UA (BEAKER) (test code = 6.0 5.0-8.0 467) PROTEIN UA (BEAKER) (test code 100 mg/dL Negative A = 464) GLUCOSE UA (BEAKER) (test code Negative Negative = 365) KETONES UA (BEAKER) (test code Trace Negative A = 371) BILIRUBIN UA (BEAKER) (test Negative Negative code = 462) BLOOD UA (BEAKER) (test code = Trace Negative A 461) NITRITE UA (BEAKER) (test code Negative Negative = 465) LEUKOCYTE ESTERASE UA (BEAKER) Negative Negative (test code = 466) UROBILINOGEN UA (BEAKER) (test 0.2 mg/dL 0.2-1.0 code = 463) RBC UA (BEAKER) (test code = 1 /HPF 519) WBC UA (BEAKER) (test code = 1 /HPF 520) AMORPHOUS CRYSTALS (BEAKER) Occasional (test code = 1584) SOURCE(BEAKER) (test code = Urine, Voided 5447) [id number] 23:39:00 Test Item Value Reference Range Interpretation Comments MAGNESIUM (BEAKER) 2.3 mg/dL 1.6-2.6 Specimen slightly (test code = 627) hemolyzed [id number] 23:39:00 Test Item Value Reference Range Interpretation Comments PHOSPHORUS (BEAKER) 2.2 mg/dL 2.3-4.7 L Specimen slightly (test code = 604) hemolyzed BASIC METABOLIC [id number] 23:39:00 Test Item Value Reference Range Interpretation Comments SODIUM (BEAKER) 127 meq/L 136-145 L (test code = 381) POTASSIUM (BEAKER) 4.1 meq/L 3.5-5.1 Specimen slightly (test code = 379) hemolyzed CHLORIDE (BEAKER) 96 meq/L 98-107 L (test code = 382) CO2 (BEAKER) (test 24 meq/L 22-29 code = 355) BLOOD UREA NITROGEN 35 mg/dL 7-21 H (BEAKER) (test code = 354) CREATININE (BEAKER) 0.86 mg/dL 0.57-1.25 Specimen slightly (test code = 358) hemolyzed GLUCOSE RANDOM 90 mg/dL 70-105 (BEAKER) (test code = 652) CALCIUM (BEAKER) 9.8 mg/dL 8.4-10.2 (test code = 697) EGFR (BEAKER) (test 89 mL/min/1.73 ESTIMA SINTIA GFR IS code = 1092) sq m NOT ACCURATE CREATININE CLEARANCE IN PREDICTING GLOMERULAR FILTRATION RATE . ESTIMATED GFR I S NOT APPLICABLE FOR DIALYSIS PATIEN TS. HEPATIC FUNCTION [id number] 23:39:00 Test Item Value Reference Range Interpretation Comments TOTAL PROTEIN (BEAKER) 7.3 gm/dL 6.0-8.3 Speci men slightly (test code = 770) hemolyzed ALBUMIN (BEAKER) (test 3.1 g/dL 3.5-5.0 L Speci men slightly code = 1145) hemolyzed BILIRUBIN TOTAL 1.8 mg/dL 0.2-1.2 H Specimen sli ghtly (BEAKER) (test code = hemoly zed 377) BILIRUBIN DIRECT 0.9 mg/dL 0.1-0.5 H Specimen sl ightly (BEAKER) (test code = hemoly zed 706) ALKALINE PHOSPHATASE 198 U/L 40-150 H (BEAKER) (test code = 346) AST (SGOT) (BEAKER) 43 U/L 5-34 H Specimen slightly (test code = 353) hemolyzed ALT (SGPT) (BEAKER) 61 U/L 6-55 H Specimen slightly (test code = 347) hemolyzed [id number] 23:38:00 Test Item Value Reference Range Interpretation Comments PROTIME (BEAKER) (test code = 74.9 seconds 11.7-14.7 H 759) INR (BEAKER) (test code = 370) 9.2 <=5.9 HH PARTIAL THROMBOPLASTIN TIME 166.6 seconds 22.5-36.0 HH (BEAKER) (test code = 760) RECOMMENDED COUMADIN/WARFARIN INR THERAPY RANGESSTANDARD DOSE: 2.0 - 3.0 Includes: PROPHYLAXIS forvenous thrombosis, systemic embolization; TREATMENT for venous thrombosis and/or pulmonary embolus.HIGH RISK: Target INR is 2.5-3.5 for patients with mechanical heart valves.CBC (HEMOGRAM ONLY)2018-03-17 23:21:00 Test Item Value Reference Range Interpretation Comments WHITE BLOOD CELL COUNT (BEAKER) 11.1 K/ L 3.5-10.5 H (test code = 775) RED BLOOD CELL COUNT (BEAKER) 3.71 M/ L 4.63-6.08 L (test code = 761) HEMOGLOBIN (BEAKER) (test code = 11.6 GM/DL 13.7-17.5 L 410) HEMATOCRIT (BEAKER) (test code = 36.3 % 40.1-51.0 L 411) MEAN CORPUSCULAR VOLUME (BEAKER) 97.8 fL 79.0-92.2 H (test code = 753) MEAN CORPUSCULAR HEMOGLOBIN 31.3 pg 25.7-32.2 (BEAKER) (test code = 751) MEAN CORPUSCULAR HEMOGLOBIN CONC 32.0 GM/DL 32.3-36.5 L (BEAKER) (test code = 752) RED CELL DISTRIBUTION WIDTH 16.6 % 11.6-14.4 H (BEAKER) (test code = 412) PLATELET COUNT (BEAKER) (test 310 K/CU MM 150-450 code = 756) MEAN PLATELET VOLUME (BEAKER) 9.3 fL 9.4-12.4 L (test code = 754) NUCLEATED RED BLOOD CELLS 0 /100 WBC 0-0 (BEAKER) (test code = 413) BLOOD [id number] 17:01:00 Test Item Value Reference Range Interpretation Comments CULTURE (BEAKER) (test No growth in 5 days code = 1095) BLOOD [id number] 17:01:00 Test Item Value Reference Range Interpretation Comments CULTURE (BEAKER) (test No growth in 5 days code = 1095) [id number] 07:54:00 Test Item Value Reference Range Interpretation Comments PARTIAL THROMBOPLASTIN TIME 97.6 seconds 22.5-36.0 H (BEAKER) (test code = 760) While on warfarin.PROTHROMBIN [id number] 07:52:00 Test Item Value Reference Range Interpretation Comments PROTIME (BEAKER) (test code = 24.2 seconds 11.7-14.7 H 759) INR (BEAKER) (test code = 370) 2.2 <=5.9 RECOMMENDED COUMADIN/WARFARIN INR THERAPY RANGESSTANDARD DOSE: 2.0 - 3.0 Includes: PROPHYLAXIS forvenous thrombosis, systemic embolization; TREATMENT for venous thrombosis and/or pulmonary embolus.HIGH RISK: Target INR is 2.5-3.5 for patients with mechanical heart valves.While on warfarin.CBC (HEMOGRAM ONLY) 2018-02-16 07:37:00 Test Item Value Reference Range Interpretation Comments WHITE BLOOD CELL COUNT (BEAKER) 7.6 K/ L 3.5-10.5 (test code = 775) RED BLOOD CELL COUNT (BEAKER) 2.74 M/ L 4.63-6.08 L (test code = 761) HEMOGLOBIN (BEAKER) (test code = 8.6 GM/DL 13.7-17.5 L 410) HEMATOCRIT (BEAKER) (test code = 27.5 % 40.1-51.0 L 411) MEAN CORPUSCULAR VOLUME (BEAKER) 100.4 fL 79.0-92.2 H (test code = 753) MEAN CORPUSCULAR HEMOGLOBIN 31.4 pg 25.7-32.2 (BEAKER) (test code = 751) MEAN CORPUSCULAR HEMOGLOBIN CONC 31.3 GM/DL 32.3-36.5 L (BEAKER) (test code = 752) RED CELL DISTRIBUTION WIDTH 19.2 % 11.6-14.4 H (BEAKER) (test code = 412) PLATELET COUNT (BEAKER) (test 284 K/CU MM 150-450 code = 756) MEAN PLATELET VOLUME (BEAKER) 10.1 fL 9.4-12.4 (test code = 754) NUCLEATED RED BLOOD CELLS 0 /100 WBC 0-0 (BEAKER) (test code = 413) BASIC METABOLIC [id number] 07:29:00 Test Item Value Reference Range Interpretation Comments SODIUM (BEAKER) 138 meq/L 136-145 (test code = 381) POTASSIUM (BEAKER) 3.6 meq/L 3.5-5.1 (test code = 379) CHLORIDE (BEAKER) 108 meq/L 98-107 H (test code = 382) CO2 (BEAKER) (test 26 meq/L 22-29 code = 355) BLOOD UREA NITROGEN 6 mg/dL 7-21 L (BEAKER) (test code = 354) CREATININE (BEAKER) 0.77 mg/dL 0.57-1.25 (test code = 358) GLUCOSE RANDOM 94 mg/dL 70-105 (BEAKER) (test code = 652) CALCIUM (BEAKER) 8.6 mg/dL 8.4-10.2 (test code = 697) EGFR (BEAKER) (test mL/min/1.73 INSUFFIC IENT CLINICAL code = 1092) sq m DATA TO CALCULA TE ESTIMATED GFR. VANCOMYCIN LEVEL, [id number] 23:50:00 Test Item Value Reference Range Interpretation Comments VANCOMYCIN TROUGH (AMADOR) (test 15.4 ug/mL 10.0-20.0 code = 522) EEG MONITORING WITH VIDEO RECORDING EACH 24 [id number] 15:03:00Date(s) of EE02/14/18; 02/15/18 DATE OF REPORT: 02/15/18 ACC: [id number] EEG Number: [id number] Test Location: Floor 2431 Start time: 02/14/18 at 1711 Stop time: 02/15/18 at 1403 ICD-10: [id number] CPT Code: R41.82 HISTORY: 67 year old [...] Fellow Jackson Mosley MD PhD [facility]ending [facility]phys[id number] 07:57:00 Test Item Value Reference Range Interpretation Comments PARTIAL THROMBOPLASTIN TIME 79.9 seconds 22.5-36.0 H (BEAKER) (test code = 760) BASIC METABOLIC [id number] 05:44:00 Test Item Value Reference Range Interpretation Comments SODIUM (BEAKER) 137 meq/L 136-145 (test code = 381) POTASSIUM (BEAKER) 3.5 meq/L 3.5-5.1 (test code = 379) CHLORIDE (BEAKER) 107 meq/L 98-107 (test code = 382) CO2 (BEAKER) (test 25 meq/L 22-29 code = 355) BLOOD UREA NITROGEN 8 mg/dL 7-21 (BEAKER) (test code = 354) CREATININE (BEAKER) 0.76 mg/dL 0.57-1.25 (test code = 358) GLUCOSE RANDOM 105 mg/dL 70-105 (BEAKER) (test code = 652) CALCIUM (BEAKER) 8.6 mg/dL 8.4-10.2 (test code = 697) EGFR (BEAKER) (test mL/min/1.73 INSUFFIC IENT CLINICAL code = 1092) sq m DATA TO CALCULA TE ESTIMATED GFR. PROTHROMBIN [id number] 05:16:00 Test Item Value Reference Range Interpretation Comments PROTIME (BEAKER) (test code = 22.4 seconds 11.7-14.7 H 759) INR (BEAKER) (test code = 370) 2.0 <=5.9 RECOMMENDED COUMADIN/WARFARIN INR THERAPY RANGESSTANDARD DOSE: 2.0 - 3.0 Includes: PROPHYLAXIS forvenous thrombosis, systemic embolization; TREATMENT for venous thrombosis and/or pulmonary embolus.HIGH RISK: Target INR is 2.5-3.5 for patients with mechanical heart valves.While on warfarin.CBC (HEMOGRAM ONLY) 2018-02-15 05:06:00 Test Item Value Reference Range Interpretation Comments WHITE BLOOD CELL COUNT (BEAKER) 8.6 K/ L 3.5-10.5 (test code = 775) RED BLOOD CELL COUNT (BEAKER) 2.71 M/ L 4.63-6.08 L (test code = 761) HEMOGLOBIN (BEAKER) (test code = 8.4 GM/DL 13.7-17.5 L 410) HEMATOCRIT (BEAKER) (test code = 26.7 % 40.1-51.0 L 411) MEAN CORPUSCULAR VOLUME (BEAKER) 98.5 fL 79.0-92.2 H (test code = 753) MEAN CORPUSCULAR HEMOGLOBIN 31.0 pg 25.7-32.2 (BEAKER) (test code = 751) MEAN CORPUSCULAR HEMOGLOBIN CONC 31.5 GM/DL 32.3-36.5 L (BEAKER) (test code = 752) RED CELL DISTRIBUTION WIDTH 18.6 % 11.6-14.4 H (BEAKER) (test code = 412) PLATELET COUNT (BEAKER) (test 260 K/CU MM 150-450 code = 756) MEAN PLATELET VOLUME (BEAKER) 9.7 fL 9.4-12.4 (test code = 754) NUCLEATED RED BLOOD CELLS 0 /100 WBC 0-0 (BEAKER) (test code = 413) [id number] 02:06:00 Test Item Value Reference Range Interpretation Comments PARTIAL THROMBOPLASTIN TIME 74.3 seconds 22.5-36.0 H (BEAKER) (test code = 760) RAD, ABDOMEN/KUB, 1 VIEW [id number] 21:56:00Reason for exam:->constipation FINAL REPORT CLINICAL HISTORY: constipation TECHNIQUE: RAD, [...] quadrant and pelvis. Normal osseous structures. Signed: Nikkie Escobarort Verified Date/Time: 02/14/2018 21:56:57 ReadingLocation: [facility] B1 C013T Transitional Reading Room EEG AWAKE AND [id number] 20:02:00Reason for exam:->episodes of fluctuating mentationReason for exam:->Please perform a continous studyDate(s) of EE02/14/18 DATE OF REPORT: 02/14/18 ACC: [id number] EEG Number: [id number] Test Location: Inpatient ICU Start time: 1645 Stop time: 1951 ICD-10: 86842 CPT Code: G40.909 HISTORY: 67 year old [...] VIDEO EVENTS: None SIGNIFICANT ELECTROCARDIOGRAM EVENTS: None HV:Hyperventilation was not performed. PHOTIC STIMULATION: Photic stimulation was done from 1-33 Hz; no photic driving was seen; photoparoxysmal responses were absent. IMPRESSION: Normal Awake andSleep EEG CLINICAL CORRELATION: An EEG without epileptiform discharges does not exclude the possibility of epilepsy. It the clinical suspicion of epilepsy remains, consider additional EEG recordings. Joseluis Powell MD Neurophysiology Fellow Jagruti Russo Attending Neurophysiologist [facility] [id number] 19:17:00 Test Item Value Reference Range Interpretation Comments PARTIAL THROMBOPLASTIN TIME 57.2 seconds 22.5-36.0 H (BEAKER) (test code = 760) URINALYSIS W/ REFLEX URINE [id number] 17:40:00 Test Item Value Reference Range Interpretation Comments COLOR (BEAKER) (test code = 470) Yellow CLARITY (BEAKER) (test code = 469) Clear SPECIFIC GRAVITY UA (BEAKER) (test 1.016 1.001-1.035 code = 468) PH UA (BEAKER) (test code = 467) 7.5 5.0-8.0 PROTEIN UA (BEAKER) (test code = 30 mg/dL Negative A 464) GLUCOSE UA (BEAKER) (test code = Negative Negative 365) KETONES UA (BEAKER) (test code = Negative Negative 371) BILIRUBIN UA (BEAKER) (test code = Negative Negative 462) BLOOD UA (BEAKER) (test code = Negative Negative 461) NITRITE UA (BEAKER) (test code = Negative Negative 465) LEUKOCYTE ESTERASE UA (BEAKER) Negative Negative (test code = 466) UROBILINOGEN UA (BEAKER) (test 3.0 mg/dL 0.2-1.0 H code = 463) RBC UA (BEAKER) (test code = 519) < /HPF WBC UA (BEAKER) (test code = 520) 1 /HPF MUCUS (BEAKER) (test code = 1574) Occasional SQUAMOUS EPITHELIAL (BEAKER) (test < /HPF code = 516) SOURCE(BEAKER) (test code = 2795) MR, BRAIN, WITHOUT [id number] 12:31:00Has mechanical AV, uncertain if patient can get MRI or not.FINAL REPORT MRI brain without contrast 02/14/2018 12:28 PM CLINICAL INDICATION: stroke TECHNIQUE: Multiplanar, multisequence MR imaging of the brain was performed utilizing the following imaging sequences: Axial T1, T2, FLAIR, GRE, and DWI; sagittal and coronal T1- weighted images. COMPARISON: None available FINDINGS: There is [...] IMPRESSION: Chronic ischemic changes. No acute intracranial abnorma lity. Signed: Abdi Mg Verified Date/Time: 02/14/2018 12:31:11 Reading Location: [facility] B1 C013V Neuro Reading Room [id number] 10:56:00 Test Item Value Reference Range Interpretation Comments PARTIAL THROMBOPLASTIN TIME 69.2 seconds 22.5-36.0 H (BEAKER) (test code = 760) BASIC METABOLIC [id number] 04:48:00 Test Item Value Reference Range Interpretation Comments SODIUM (BEAKER) 139 meq/L 136-145 (test code = 381) POTASSIUM (BEAKER) 3.5 meq/L 3.5-5.1 (test code = 379) CHLORIDE (BEAKER) 106 meq/L 98-107 (test code = 382) CO2 (BEAKER) (test 27 meq/L 22-29 code = 355) BLOOD UREA NITROGEN 6 mg/dL 7-21 L (BEAKER) (test code = 354) CREATININE (BEAKER) 0.78 mg/dL 0.57-1.25 (test code = 358) GLUCOSE RANDOM 104 mg/dL 70-105 (BEAKER) (test code = 652) CALCIUM (BEAKER) 8.6 mg/dL 8.4-10.2 (test code = 697) EGFR (BEAKER) (test mL/min/1.73 INSUFFIC IENT CLINICAL code = 1092) sq m DATA TO CALCULA TE ESTIMATED GFR. [id number] 04:44:00 Test Item Value Reference Range Interpretation Comments PARTIAL THROMBOPLASTIN TIME 105.1 seconds 22.5-36.0 H (BEAKER) (test code = 760) While on warfarin.PROTHROMBIN [id number] 04:41:00 Test Item Value Reference Range Interpretation Comments PROTIME (BEAKER) (test code = 20.9 seconds 11.7-14.7 H 759) INR (BEAKER) (test code = 370) 1.8 <=5.9 RECOMMENDED COUMADIN/WARFARIN INR THERAPY RANGESSTANDARD DOSE: 2.0 - 3.0 Includes: PROPHYLAXIS forvenous thrombosis, systemic embolization; TREATMENT for venous thrombosis and/or pulmonary embolus.HIGH RISK: Target INR is 2.5-3.5 for patients with mechanical heart valves.While on warfarin.CBC (HEMOGRAM ONLY) 2018-02-14 04:25:00 Test Item Value Reference Range Interpretation Comments WHITE BLOOD CELL COUNT (BEAKER) 7.0 K/ L 3.5-10.5 (test code = 775) RED BLOOD CELL COUNT (BEAKER) 2.55 M/ L 4.63-6.08 L (test code = 761) HEMOGLOBIN (BEAKER) (test code = 7.8 GM/DL 13.7-17.5 L 410) HEMATOCRIT (BEAKER) (test code = 25.2 % 40.1-51.0 L 411) MEAN CORPUSCULAR VOLUME (BEAKER) 98.8 fL 79.0-92.2 H (test code = 753) MEAN CORPUSCULAR HEMOGLOBIN 30.6 pg 25.7-32.2 (BEAKER) (test code = 751) MEAN CORPUSCULAR HEMOGLOBIN CONC 31.0 GM/DL 32.3-36.5 L (BEAKER) (test code = 752) RED CELL DISTRIBUTION WIDTH 18.1 % 11.6-14.4 H (BEAKER) (test code = 412) PLATELET COUNT (BEAKER) (test 237 K/CU MM 150-450 code = 756) MEAN PLATELET VOLUME (BEAKER) 9.5 fL 9.4-12.4 (test code = 754) NUCLEATED RED BLOOD CELLS 0 /100 WBC 0-0 (BEAKER) (test code = 413) [id number] 03:18:00 Test Item Value Reference Range Interpretation Comments RPR SCREEN (BEAKER) (test code = Nonreactive Nonreactive 420) [id number] 18:49:00 Test Item Value Reference Range Interpretation Comments PARTIAL THROMBOPLASTIN TIME 70.7 seconds 22.5-36.0 H (BEAKER) (test code = 760) CT, BRAIN, WITHOUT [id number] 13:33:00FINAL REPORT CT head without contrast 02/13/2018 [...] characterized with MRI if clinically indicated. Signed: Abdi Mg VerifiedDate/Time: 02/13/2018 13:33:21 Reading Location: [facility] C013V Neuro Reading Room [id number] 13:28:00 Test Item Value Reference Range Interpretation Comments PARTIAL THROMBOPLASTIN TIME 69.2 seconds 22.5-36.0 H (BEAKER) (test code = 760) VITAMIN B12 AND [id number] 09:14:00 Test Item Value Reference Range Interpretation Comments VITAMIN B12 (BEAKER) (test code = > pg/mL 213-816 H 774) FOLATE (BEAKER) (test code = 362) 4.8 ng/mL >=7.0 L T4, [id number] 09:13:00 Test Item Value Reference Range Interpretation Comments FREE T4 (BEAKER) (test code = 655) 0.94 ng/dL 0.70-1.48 TSH/FREE T4 IF [id number] 08:18:00 Test Item Value Reference Range Interpretation Comments THYROID STIMULATING HORMONE 9.92 uIU/mL 0.35-4.94 H (BEAKER) (test code = 772) HEMOGLOBIN [id number] 08:06:00 Test Item Value Reference Range Interpretation Comments HEMOGLOBIN A1C (BEAKER) (test code = 5.6 % 4.3-6.1 368) [id number] 06:57:00 Test Item Value Reference Range Interpretation Comments PARTIAL THROMBOPLASTIN TIME 62.5 seconds 22.5-36.0 H (BEAKER) (test code = 760) BASIC METABOLIC [id number] 06:04:00 Test Item Value Reference Range Interpretation Comments SODIUM (BEAKER) 139 meq/L 136-145 (test code = 381) POTASSIUM (BEAKER) 3.3 meq/L 3.5-5.1 L (test code = 379) CHLORIDE (BEAKER) 106 meq/L 98-107 (test code = 382) CO2 (BEAKER) (test 27 meq/L 22-29 code = 355) BLOOD UREA NITROGEN 7 mg/dL 7-21 (BEAKER) (test code = 354) CREATININE (BEAKER) 0.82 mg/dL 0.57-1.25 (test code = 358) GLUCOSE RANDOM 105 mg/dL 70-105 (BEAKER) (test code = 652) CALCIUM (BEAKER) 8.6 mg/dL 8.4-10.2 (test code = 697) EGFR (BEAKER) (test mL/min/1.73 INSUFFIC IENT CLINICAL code = 1092) sq m DATA TO CALCULA TE ESTIMATED GFR. CBC (HEMOGRAM ONLY)2018-02-13 05:02:00 Test Item Value Reference Range Interpretation Comments WHITE BLOOD CELL COUNT (BEAKER) 8.9 K/ L 3.5-10.5 (test code = 775) RED BLOOD CELL COUNT (BEAKER) 2.76 M/ L 4.63-6.08 L (test code = 761) HEMOGLOBIN (BEAKER) (test code = 8.3 GM/DL 13.7-17.5 L 410) HEMATOCRIT (BEAKER) (test code = 27.0 % 40.1-51.0 L 411) MEAN CORPUSCULAR VOLUME (BEAKER) 97.8 fL 79.0-92.2 H (test code = 753) MEAN CORPUSCULAR HEMOGLOBIN 30.1 pg 25.7-32.2 (BEAKER) (test code = 751) MEAN CORPUSCULAR HEMOGLOBIN CONC 30.7 GM/DL 32.3-36.5 L (BEAKER) (test code = 752) RED CELL DISTRIBUTION WIDTH 17.7 % 11.6-14.4 H (BEAKER) (test code = 412) PLATELET COUNT (BEAKER) (test 245 K/CU MM 150-450 code = 756) MEAN PLATELET VOLUME (BEAKER) 9.9 fL 9.4-12.4 (test code = 754) NUCLEATED RED BLOOD CELLS 0 /100 WBC 0-0 (BEAKER) (test code = 413) [id number] 05:01:00 Test Item Value Reference Range Interpretation Comments PARTIAL THROMBOPLASTIN TIME 129.9 seconds 22.5-36.0 H (BEAKER) (test code = 760) While on warfarin.PROTHROMBIN [id number] 04:58:00 Test Item Value Reference Range Interpretation Comments PROTIME (BEAKER) (test code = 18.2 seconds 11.7-14.7 H 759) INR (BEAKER) (test code = 370) 1.5 <=5.9 RECOMMENDED COUMADIN/WARFARIN INR THERAPY RANGESSTANDARD DOSE: 2.0 - 3.0 Includes: PROPHYLAXIS forvenous thrombosis, systemic embolization; TREATMENT for venous thrombosis and/or pulmonary embolus.HIGH RISK: Target INR is 2.5-3.5 for patients with mechanical heart valves.While on warfarin.LIPID [id number] 21:59:00 Test Item Value Reference Range Interpretation Comments TRIGLYCERIDES (BEAKER) (test code = 126 mg/dL 540) CHOLESTEROL (BEAKER) (test code = 166 mg/dL 631) HDL CHOLESTEROL (BEAKER) (test code 31 mg/dL = 976) LDL CHOLESTEROL CALCULATED (BEAKER) 110 mg/dL (test code = 633) Triglyceride Reference Range: Low Risk <150 Borderline 150-199 High Risk 200-499 Very High Risk >=500Cholesterol Reference Range: Low Risk <200 Borderline 200-239 High Risk >240HDL Cholesterol Reference Range: Low Risk >=60 High Risk <40LDL Cholesterol Reference Range: Optimal <100 Near Optimal 100-129 Borderline 130-159 High 160-189 Very High >=[id number] 21:47:00 Test Item Value Reference Range Interpretation Comments PARTIAL THROMBOPLASTIN TIME 75.6 seconds 22.5-36.0 H (BEAKER) (test code = 760) HEMOGLOBIN AND [id number] 21:38:00 Test Item Value Reference Range Interpretation Comments HEMOGLOBIN (BEAKER) (test code = 8.6 GM/DL 13.7-17.5 L 410) HEMATOCRIT (BEAKER) (test code = 28.0 % 40.1-51.0 L 411) CT, CTANGIO [id number] 18:19:00FINAL REPORT CTA carotids and brain 02/12/2018 [...] 4. Bilateral small volume pleural effusions. Signed: Abdi gM Verified Date/Time: 02/12/2018 18:19:07 Reading Location: [facility] Reading Room CT, CAROTID, [id number] 18:19:00FINAL REPORT CTA carotids and brain 02/12/2018 [...] 4. Bilateral small volume pleural effusions. Signed: Abdi Mg MDReport Verified Date/Time: 02/12/2018 18:19:07 Reading Location: [facility] Radiology Reading Room [facility] METABOLIC [id number] 15:37:00 Test Item Value Reference Range Interpretation Comments SODIUM (BEAKER) 140 meq/L 136-145 (test code = 381) POTASSIUM (BEAKER) 3.8 meq/L 3.5-5.1 Specimen slightly (test code = 379) hemolyzed CHLORIDE (BEAKER) 105 meq/L 98-107 (test code = 382) CO2 (BEAKER) (test 30 meq/L 22-29 H code = 355) BLOOD UREA NITROGEN 6 mg/dL 7-21 L (BEAKER) (test code = 354) CREATININE (BEAKER) 0.85 mg/dL 0.57-1.25 Specimen slightly (test code = 358) hemolyzed GLUCOSE RANDOM 113 mg/dL 70-105 H (BEAKER) (test code = 652) CALCIUM (BEAKER) 8.9 mg/dL 8.4-10.2 (test code = 697) EGFR (BEAKER) (test mL/min/1.73 INSUFFIC IENT CLINICAL code = 1092) sq m DATA TO CALCULA TE ESTIMATED GFR. [id number] 15:07:00 Test Item Value Reference Range Interpretation Comments PARTIAL THROMBOPLASTIN TIME 77.4 seconds 22.5-36.0 H (AMADOR) (test code = 760) HEMOGLOBIN AND [id number] 14:59:00 Test Item Value Reference Range Interpretation Comments HEMOGLOBIN (AMADOR) (test code = 8.7 GM/DL 13.7-17.5 L 410) HEMATOCRIT (AMADOR) (test code = 27.7 % 40.1-51.0 L 411) POCT-GLUCOSE [id number] 12:31:00 Test Item Value Reference Range Interpretation Comments POC-GLUCOSE METER 118 mg/dL 70-110 H TESTED AT [facility] [address] (AMADOR) (test code = [place] 1538) [address] CT, BRAIN/STROKE [id number] 12:24:00FINAL REPORT CT head without contrast INDICATION: [...] stroke neurology housestaff at 12:20 PM Signed: Dashawn Hamilton Verified Date/Time: 02/12/2018 12:24:12 Reading Location: [facility] Radiology Reading Room [id number] 07:08:00 Test Item Value Reference Range Interpretation Comments PARTIAL THROMBOPLASTIN TIME 119.2 seconds 22.5-36.0 H (BEAKER) (test code = 760) While on warfarin.PROTHROMBIN TIME/[id number] 06:53:00 Test Item Value Reference Range Interpretation Comments PROTIME (BEAKER) (test code = 17.0 seconds 11.7-14.7 H 759) INR (BEAKER) (test code = 370) 1.4 <=5.9 RECOMMENDED COUMADIN/WARFARIN INR THERAPY RANGESSTANDARD DOSE: 2.0 - 3.0 Includes: PROPHYLAXIS forvenous thrombosis, systemic embolization; TREATMENT for venous thrombosis and/or pulmonary embolus.HIGH RISK: Target INR is 2.5-3.5 for patients with mechanical heart valves.While on warfarin.HEMOGLOBIN AND [id number] 06:47:00 Test Item Value Reference Range Interpretation Comments HEMOGLOBIN (BEAKER) (test code = 8.4 GM/DL 13.7-17.5 L 410) HEMATOCRIT (BEAKER) (test code = 26.9 % 40.1-51.0 L 411) Baseline and daily starting prior to initiation of heparin infusionCBC (HEMOGRAM ONLY)2018-02-12 06:47:00 Test Item Value Reference Range Interpretation Comments WHITE BLOOD CELL COUNT (BEAKER) 7.5 K/ L 3.5-10.5 (test code = 775) RED BLOOD CELL COUNT (BEAKER) 2.76 M/ L 4.63-6.08 L (test code = 761) HEMOGLOBIN (BEAKER) (test code = 8.4 GM/DL 13.7-17.5 L 410) HEMATOCRIT (BEAKER) (test code = 26.9 % 40.1-51.0 L 411) MEAN CORPUSCULAR VOLUME (BEAKER) 97.5 fL 79.0-92.2 H (test code = 753) MEAN CORPUSCULAR HEMOGLOBIN 30.4 pg 25.7-32.2 (BEAKER) (test code = 751) MEAN CORPUSCULAR HEMOGLOBIN CONC 31.2 GM/DL 32.3-36.5 L (BEAKER) (test code = 752) RED CELL DISTRIBUTION WIDTH 17.6 % 11.6-14.4 H (BEAKER) (test code = 412) PLATELET COUNT (BEAKER) (test 233 K/CU MM 150-450 code = 756) MEAN PLATELET VOLUME (BEAKER) 10.0 fL 9.4-12.4 (test code = 754) NUCLEATED RED BLOOD CELLS 0 /100 WBC 0-0 (BEAKER) (test code = 413) [id number] 23:21:00 Test Item Value Reference Range Interpretation Comments PARTIAL THROMBOPLASTIN TIME 55.4 seconds 22.5-36.0 H (BEAKER) (test code = 760) HEMOGLOBIN AND [id number] 22:51:00 Test Item Value Reference Range Interpretation Comments HEMOGLOBIN (BEAKER) (test code = 8.8 GM/DL 13.7-17.5 L 410) HEMATOCRIT (BEAKER) (test code = 29.5 % 40.1-51.0 L 411) POCT-GLUCOSE [id number] 17:14:00 Test Item Value Reference Range Interpretation Comments POC-GLUCOSE METER 128 mg/dL 70-110 H TESTED AT [place] [address] ([facility]) (test code = CHACHA Benites [facility] 1538) [address] [id number] 15:48:00 Test Item Value Reference Range Interpretation Comments PARTIAL THROMBOPLASTIN TIME 33.7 seconds 22.5-36.0 (BEAKER) (test code = 760) Prior to initiating heparinHEMOGLOBIN AND [id number] 13:58:00 Test Item Value Reference Range Interpretation Comments HEMOGLOBIN (BEAKER) (test code = 8.5 GM/DL 13.7-17.5 L 410) HEMATOCRIT (BEAKER) (test code = 26.6 % 40.1-51.0 L 411) POCT-GLUCOSE [id number] 12:17:00 Test Item Value Reference Range Interpretation Comments POC-GLUCOSE METER 124 mg/dL 70-110 H TESTED AT [place] [address] ([facility]) (test code = [facility] Kamari [facility] 1538) [address] RAD, CHEST, 1 VIEW, NON [id number] 07:19:00Reason for exam:->hypoxia; eval for perforated viscusShould [...] are intact.Additional findings: None. Signed: JR Muñoz RobertMDReptaye Verified Date/Time: 02/11/2018 07:19:35 Reading Location: [address] Neuro Reading Room RAD, ABDOMEN/KUB, 1 VIEW [id number] 07:18:00Reason for exam:->eval for perforated viscusShould this be performed at the bedside?->YesFINAL REPORT RAD, ABDOMEN/KUB, 1 VIEW AP CLINICAL INDICATION: eval for perforated viscus COMPARISON: None TECHNIQUE: Two frontal radiographs of the abdomen. IMPRESSION:The bowel gas pattern is nonspecific, but nonobstructive. No abnormal mass or ascites is detected. 60 mm calcification projecting over the inferior portion of the right upper quadrant. This may reflect gallbladder stone or on past superior pole renal stone. The regional skeleton is intact. Signed: JR Muñoz Robert MDReptaye Verified Date/Time: 02/11/2018 07:18:28 Reading Location: [address] Neuro Reading Room COMPREHENSIVE METABOLIC PANEL 2018-02-11 06:09:00 Test Item Value Reference Range Interpretation Comments TOTAL PROTEIN 6.2 gm/dL 6.0-8.3 (BEAKER) (test code = 770) ALBUMIN (BEAKER) 3.1 g/dL 3.5-5.0 L (test code = 1145) ALKALINE PHOSPHATASE 65 U/L 40-150 (BEAKER) (test code = 346) BILIRUBIN TOTAL 1.1 mg/dL 0.2-1.2 (BEAKER) (test code = 377) SODIUM (BEAKER) 139 meq/L 136-145 (test code = 381) POTASSIUM (BEAKER) 4.3 meq/L 3.5-5.1 (test code = 379) CHLORIDE (BEAKER) 105 meq/L 98-107 (test code = 382) CO2 (BEAKER) (test 28 meq/L 22-29 code = 355) BLOOD UREA NITROGEN 3 mg/dL 7-21 L (BEAKER) (test code = 354) CREATININE (BEAKER) 0.73 mg/dL 0.57-1.25 (test code = 358) GLUCOSE RANDOM 124 mg/dL 70-105 H (BEAKER) (test code = 652) CALCIUM (BEAKER) 8.8 mg/dL 8.4-10.2 (test code = 697) AST (SGOT) (BEAKER) 27 U/L 5-34 (test code = 353) ALT (SGPT) (BEAKER) 17 U/L 6-55 (test code = 347) EGFR (BEAKER) (test mL/min/1.73 INSUFFIC IENT code = 1092) sq m CLINICAL DATA T O CALCULATE ESTIM ATED GFR. [id number] 06:07:00 Test Item Value Reference Range Interpretation Comments PHOSPHORUS (BEAKER) (test code = 3.3 mg/dL 2.3-4.7 604) [id number] 06:07:00 Test Item Value Reference Range Interpretation Comments MAGNESIUM (BEAKER) (test code = 1.8 mg/dL 1.6-2.6 627) PROTHROMBIN [id number] 05:46:00 Test Item Value Reference Range Interpretation Comments PROTIME (BEAKER) (test code = 16.0 seconds 11.7-14.7 H 759) INR (BEAKER) (test code = 370) 1.3 <=5.9 RECOMMENDED COUMADIN/WARFARIN INR THERAPY RANGESSTANDARD DOSE: 2.0 - 3.0 Includes: PROPHYLAXIS forvenous thrombosis, systemic embolization; TREATMENT for venous thrombosis and/or pulmonary embolus.HIGH RISK: Target INR is 2.5-3.5 for patients with mechanical heart valves.CBC W/PLT COUNT & AUTO DIFFERENTIAL 2018-02-11 05:39:00 Test Item Value Reference Range Interpretation Comments WHITE BLOOD CELL COUNT (BEAKER) 8.6 K/ L 3.5-10.5 (test code = 775) RED BLOOD CELL COUNT (BEAKER) 3.01 M/ L 4.63-6.08 L (test code = 761) HEMOGLOBIN (BEAKER) (test code = 9.2 GM/DL 13.7-17.5 L 410) HEMATOCRIT (BEAKER) (test code = 29.2 % 40.1-51.0 L 411) MEAN CORPUSCULAR VOLUME (BEAKER) 97.0 fL 79.0-92.2 H (test code = 753) MEAN CORPUSCULAR HEMOGLOBIN 30.6 pg 25.7-32.2 (BEAKER) (test code = 751) MEAN CORPUSCULAR HEMOGLOBIN CONC 31.5 GM/DL 32.3-36.5 L (BEAKER) (test code = 752) RED CELL DISTRIBUTION WIDTH 17.2 % 11.6-14.4 H (BEAKER) (test code = 412) PLATELET COUNT (BEAKER) (test 267 K/CU MM 150-450 code = 756) MEAN PLATELET VOLUME (BEAKER) 9.9 fL 9.4-12.4 (test code = 754) NUCLEATED RED BLOOD CELLS 0 /100 WBC 0-0 (BEAKER) (test code = 413) NEUTROPHILS RELATIVE PERCENT 51 % (BEAKER) (test code = 429) LYMPHOCYTES RELATIVE PERCENT 39 % (BEAKER) (test code = 430) MONOCYTES RELATIVE PERCENT 6 % (BEAKER) (test code = 431) EOSINOPHILS RELATIVE PERCENT 0 % (BEAKER) (test code = 432) BASOPHILS RELATIVE PERCENT 1 % (BEAKER) (test code = 437) NEUTROPHILS ABSOLUTE COUNT 4.42 K/ L 1.78-5.38 (BEAKER) (test code = 670) LYMPHOCYTES ABSOLUTE COUNT 3.37 K/ L 1.32-3.57 (BEAKER) (test code = 414) MONOCYTES ABSOLUTE COUNT (BEAKER) 0.49 K/ L 0.30-0.82 (test code = 415) EOSINOPHILS ABSOLUTE COUNT 0.02 K/ L 0.04-0.54 L (BEAKER) (test code = 416) BASOPHILS ABSOLUTE COUNT (BEAKER) 0.04 K/ L 0.01-0.08 (test code = 417) IMMATURE GRANULOCYTES-RELATIVE 3 % 0-1 H PERCENT (BEAKER) (test code = 2098)
[2020-03-08 15:53] LABS: Absolute Lymphocytes (CBC) 2.1 K/uL (0.7-4.9); Basophils % 0.9 % (0-1.3); Lymphocytes % 34.5 % (15.3-44.8); MPV 7.6 fL (7.6-11.3); RBC Red Blood Cell Count 3.81 M/uL (4.33-5.43)
[2020-03-08] MEDS ORDERED: WATER FOR INJ,STERILE 10 ML ONE (15:55)
[2020-03-08] MEDS ORDERED: PANTOPRAZOLE 40 MG INJ ONE (15:55)
[2020-03-08 15:56] LABS: Protime INR 1.56
[2020-03-08] MEDS ORDERED: PANTOPRAZOLE INJ 80 MG in NA CHLORIDE 0.9% 250 ML IV SCH (16:00)
[2020-03-08 16:13] LABS: ALT/SGPT 35 U/L (12-78); AST/SGOT 40 U/L (15-37); Alkaline Phosphatase 73 U/L (45-117); BUN Blood Urea Nitrogen 25 mg/dL (7-18); Bicarbonate 29 mmol/L (21-32); Bilirubin Direct 0.2 mg/dL (0-0.2); Bilirubin Total 0.8 mg/dL (0.2-1.0); Glucose Level 87 mg/dL (74-106); Magnesium 2.2 mg/dL (1.8-2.4); NT PRO-BNP 287 pg/mL (<125); Potassium 4.2 mmol/L (3.5-5.1); Protein, Total 7.5 g/dL (6.4-8.2); Sodium Level 143 mmol/L (136-145); Troponin (Emerg Dept Use Only) < 0.02 ng/mL (0.0-0.045)
--- NOTE | 2020-03-08 16:34 | ER ---
Nurse's Notes [facility] [place] Name: Abdirizak Diaz Age: 69 yrs Sex: Male : 1950 Arrival Date: 03/08/2020 Time: 13:12 Bed 19 Private MD: Savage Kelsey H Diagnosis: Melena Presentation: 03/08 14:07 Chief complaint: Patient states: had upper GI done at [facility] yesterday , started iw having black stool today and had some bright red blood in stool also , started back on his warfarin 2 mg last night. Coronavirus screen: At this time, the client does not indicate any symptoms associated with coronavirus-19. Ebola Screen: Patient negative for fever greater than or equal to 101.5 degrees Fahrenheit, and additional compatible Ebola Virus Disease symptoms Patient denies exposure to infectious person. Patient denies travel to an Ebola-affected area in the 21 days before illness onset. No symptoms or risks identified at this time. Initial Sepsis Screen: Does the patient meet any 2 criteria? No. Patient's initial sepsis screen is negative. Does the patient have a suspected source of infection? No. Patient's initial sepsis screen is negative. Risk Assessment: Do you want to hurt yourself or someone else? Patient reports no desire to harm self or others. Onset of symptoms was March 08, 2020. 14:07 Method Of Arrival: Ambulatory iw 14:07 Acuity: ERIBERTO 3 iw Historical: - Allergies: 14:09 Aspirin; iw 14:09 Keppra; iw - PMHx: 14:09 High Cholesterol; Hypertension; Seizures; iw - PSHx: 14:09 Hernia repair; mechanical valve replacement; iw - Immunization history:: Adult Immunizations up to date. - Social history:: Smoking status: Patient denies any tobacco usage or history of. Screenin:50 Abuse screen: Denies threats or abuse. Denies injuries from another. Nutritional ca1 screening: No deficits noted. Tuberculosis screening: No symptoms or risk factors identified. Fall Risk IV access (20 points). Assessment: 14:50 General: Appears in no apparent distress. comfortable, Behavior is calm, cooperative, ca1 appropriate for age. Pain: Denies pain. Neuro: Level of Consciousness is awake, alert, obeys commands, Oriented to person, place, time, situation. Cardiovascular: Heart tones S1 S2 present Capillary refill < 3 seconds Patient's skin is warm and dry. Rhythm is sinus rhythm. Respiratory: Airway is patent Respiratory effort is even, unlabored, Respiratory pattern is regular, symmetrical. GI: Abdomen is round non-distended, Bowel sounds present X 4 quads. Abd is soft and non tender X 4 quads. Reports bloody stool. : No signs and/or symptoms were reported regarding the genitourinary system. EENT: No signs and/or symptoms were reported regarding the EENT system. Derm: Skin is intact, is healthy with good turgor, Skin is pink, warm \T\ dry. Musculoskeletal: Circulation, motion, and sensation intact. Capillary refill is > 3 seconds. 15:50 Reassessment: Patient appears in no apparent distress at this time. Patient and/or ca1 family updated on plan of care and expected duration. Pain level reassessed. Patient is alert, oriented x 3, equal unlabored respirations, skin warm/dry/pink. 16:50 Reassessment: Patient appears in no apparent distress at this time. Patient and/or ca1 family updated on plan of care and expected duration. Pain level reassessed. Patient is alert, oriented x 3, equal unlabored respirations, skin warm/dry/pink. 17:56 Reassessment: Patient appears in no apparent distress at this time. Patient and/or ca1 family updated on plan of care and expected duration. Pain level reassessed. Patient is alert, oriented x 3, equal unlabored respirations, skin warm/dry/pink. 18:53 Reassessment: Patient appears in no apparent distress at this time. Patient and/or ca1 family updated on plan of care and expected duration. Pain level reassessed. Patient is alert, oriented x 3, equal unlabored respirations, skin warm/dry/pink. 19:17 Reassessment: received report from Clarita MORALES. jv1 19:17 General: Appears in no apparent distress. comfortable, well groomed, Behavior is calm, jv1 cooperative, appropriate for age. Pain: Denies pain. Neuro: Level of Consciousness is awake, alert, obeys commands, Oriented to person, place, time, situation, [employer] are. Cardiovascular: Heart tones S1 S2 present Capillary refill < 3 seconds Patient's skin is warm and dry. Respiratory: Airway is patent Respiratory effort is even, unlabored, Respiratory pattern is regular, symmetrical. GI: Abdomen is round non-distended, Bowel sounds present X 4 quads. Abd is soft and non tender X 4 quads. Reports bloody stool. : No signs and/or symptoms were reported regarding the genitourinary system. EENT: No signs and/or symptoms were reported regarding the EENT system. Derm: Derm: Skin Skin is pink, warm \T\ dry. Musculoskeletal: Circulation, motion, and sensation intact. Capillary refill is > 3 seconds. 19:38 Reassessment: report given to Tamanna Villareal RN of [facility]. jv1 20:30 Reassessment: Patient appears in no apparent distress at this time. Patient and/or jv1 family updated on plan of care and expected duration. Pain level reassessed. Patient is alert, oriented x 3, equal unlabored respirations, skin warm/dry/pink. awaiting ambulance for tranfer. 20:50 Reassessment: EMS in the room getting pt ready for transfer. jv1 Vital Signs: 14:07 BP 130 / 76; Pulse 74; Resp 16; Pulse Ox 100% on R/A; Weight 90.26 kg; Height 6 ft. 0 iw in. (182.88 cm); Pain 0/10; 14:50 BP 134 / 85; Pulse 66; Resp 16 S; Pulse Ox 100% on R/A; ca1 15:50 BP 139 / 78; Pulse 64; Resp 16 S; Pulse Ox 97% on R/A; ca1 16:50 BP 129 / 82; Pulse 64; Resp 16 S; Pulse Ox 97% on R/A; ca1 17:50 BP 140 / 92; Pulse 68; Resp 17 S; Pulse Ox 99% on R/A; ca1 18:45 BP 137 / 78; Pulse 66; Resp 17 S; Pulse Ox 98% on R/A; ca1 19:30 BP 140 / 70; Pulse 66; Resp 18; Temp 98.2; Pulse Ox 99% on R/A; Pain 0/10; jv1 20:30 BP 145 / 75; Pulse 65; Resp 18; Temp 98.2; Pulse Ox 99% on R/A; Pain 0/10; jv1 20:50 BP 150 / 74; Pulse 65; Resp 18; Temp 98.2; Pulse Ox 99% on R/A; Pain 0/10; jv1 14:07 Body Mass Index 26.99 (90.26 kg, 182.88 cm) iw ED Course: 13:12 Patient arrived in ED. rg4 13:12 Savage Kelsey DO is Private Physician. rg4 14:08 Triage completed. iw 14:10 Arm band placed on. iw 14:50 Patient has correct armband on for positive identification. Placed in gown. Bed in low ca1 position. Call light in reach. Side rails up X 1. monitor worker on. Pulse ox on. NIBP on. Warm blanket given. 14:55 Italo Del Toro PA is PHCP. cp 14:55 Meliton Rviera MD is Attending Physician. cp 14:56 Clarita Perez RN is Primary Nurse. ca1 15:50 No provider procedures requiring assistance completed. Inserted saline lock: 20 gauge ca1 in right antecubital area, using aseptic technique. Blood collected. 16:37 initiated a transfer with Sonam from the [facility] [place]. eb 17:26 connected the GI communication arts lecturer for [facility] with Italo RUIZ for patient transfer eb consultation. 18:12 connected the hospitalist from [facility] with Italo Ruiz fro patient eb transfer consultation. 19:04 administrative approval given by Godwin Edouard RN/ patient has been accepted to [address] 24 tower bed 2447/ Dr. Ku has accepted the patient in transfer/ report to be called to [phone]. 20:50 Patient transferred, IV remains in place. intact. jv1 Administered Medications: 15:35 Drug: ProTONIX 8 mg/hr Route: IV; Rate: 25 ml/hr; Site: right antecubital; ca1 17:09 Follow up: Response: No adverse reaction; IV Status: Infusion continued upon transfer ca1 15:49 Drug: ProTONIX 40 mg Route: IVP; Site: right antecubital; ca1 17:09 Follow up: Response: No adverse reaction ca1 Outcome: 16:33 ER care complete, transfer ordered by . cp 20:50 Transferred by ground EMS to [facility], Transfer form completed. jv1 20:50 Condition: stable 20:50 Instructed on the need for transfer. 21:02 Patient left the ED. cr4 Signatures: Marichuy Beyer RN RN iw Bonita Chong RN RN cr4 Italo Del Toro PA PA cp Garcia, Rubi rg4 Chanel Puckett mw2 Marjorie Cheney Joyce RN RN jv1 Acprincess, Clarita RN RN ca1 Corrections: (The following items were deleted from the chart) 14:10 14:07 Chief complaint: Patient states: had upper GI done at [facility] yesterday , iw started having black stool today and had some bright red blood in stool also iw
--- NOTE | 2020-03-08 16:34 | EDPHYS ---
Physician Documentation [facility] Name: Abdirizak Diaz Age: 69 yrs Sex: Male : 1950 Arrival Date: 03/08/2020 Time: 13:12 Bed 19 Private MD: Savage Kelsey H ED Physician Meliton Rivera HPI: 03/08 15:28 This 69 yrs old Male presents to ER via Ambulatory with complaints of cp Black/Tarry Stools. 15:28 The patient presents to the emergency department with rectal bleeding, melena, 2 times cp since symptom onset. Onset: The symptoms/episode began/occurred today. 15:28 Abdominal pain: none is appreciated. Associated signs and symptoms: Pertinent cp negatives: chest pain, constipation, diarrhea, dizziness at rest, dizziness when standing, fever, syncope. Severity of symptoms: in the emergency department the symptoms are unchanged despite home interventions. Patient reports having upper endoscopy performed yesterday by DR Chuckie Aguilar at [facility]. Historical: - Allergies: 14:09 Aspirin; iw 14:09 Keppra; iw - PMHx: 14:09 High Cholesterol; Hypertension; Seizures; iw - PSHx: 14:09 Hernia repair; mechanical valve replacement; iw - Immunization history:: Adult Immunizations up to date. - Social history:: Smoking status: Patient denies any tobacco usage or history of. ROS: 15:35 Constitutional: Negative for body aches, chills, fever, poor PO intake. cp 15:35 Eyes: Negative for injury, pain, redness, and discharge. cp 15:35 ENT: Negative for ear pain, sore throat, difficulty swallowing, difficulty handling secretions. 15:35 Cardiovascular: Negative for chest pain, edema, palpitations. 15:35 Respiratory: Negative for cough, shortness of breath, wheezing. 15:35 Abdomen/GI: Positive for black/tarry stool, Negative for abdominal pain, nausea, vomiting, and diarrhea. 15:35 Back: Negative for radiated pain. 15:35 : Negative for urinary symptoms. 15:35 Neuro: Negative for altered mental status, headache, weakness. 15:35 All other systems are negative. Exam: 15:40 Constitutional: The patient appears in no acute distress, alert, awake, cp non-diaphoretic, non-toxic, well developed, well nourished. 15:40 Head/Face: Normocephalic, atraumatic. cp 15:40 Eyes: Periorbital structures: appear normal, Conjunctiva: normal, no exudate, no injection, Lids and lashes: appear normal, bilaterally. 15:40 ENT: External ear(s): are unremarkable, Nose: is normal, Posterior pharynx: Airway: no evidence of obstruction, patent. 15:40 Neck: ROM/movement: is normal, is supple, without pain, no range of motions limitations. 15:40 Chest/axilla: Inspection: normal. 15:40 Cardiovascular: Rate: normal, Rhythm: regular, Edema: is not appreciated, JVD: is not appreciated. 15:40 Respiratory: the patient does not display signs of respiratory distress, Respirations: normal, no use of accessory muscles, no retractions, labored breathing, is not present, Breath sounds: are clear throughout, no decreased breath sounds, no stridor, no wheezing. 15:40 Abdomen/GI: Inspection: scar(s), are noted in the right upper quadrant, Bowel sounds: cp active, all quadrants, Palpation: abdomen is soft and non-tender, in all quadrants, rebound tenderness, is not appreciated, voluntary guarding, is not appreciated, involuntary guarding, is not appreciated, Rectal exam: Stool: guaiac positive, black. 15:40 Back: pain, is absent, ROM is normal. 15:40 Neuro: Orientation: to person, place \T\ time. Mentation: is normal, Motor: moves all fours, strength is normal. 15:50 ECG was reviewed by the Attending Physician. cp Vital Signs: 14:07 BP 130 / 76; Pulse 74; Resp 16; Pulse Ox 100% on R/A; Weight 90.26 kg; Height 6 ft. 0 iw in. (182.88 cm); Pain 0/10; 14:50 BP 134 / 85; Pulse 66; Resp 16 S; Pulse Ox 100% on R/A; ca1 15:50 BP 139 / 78; Pulse 64; Resp 16 S; Pulse Ox 97% on R/A; ca1 16:50 BP 129 / 82; Pulse 64; Resp 16 S; Pulse Ox 97% on R/A; ca1 17:50 BP 140 / 92; Pulse 68; Resp 17 S; Pulse Ox 99% on R/A; ca1 18:45 BP 137 / 78; Pulse 66; Resp 17 S; Pulse Ox 98% on R/A; ca1 19:30 BP 140 / 70; Pulse 66; Resp 18; Temp 98.2; Pulse Ox 99% on R/A; Pain 0/10; jv1 20:30 BP 145 / 75; Pulse 65; Resp 18; Temp 98.2; Pulse Ox 99% on R/A; Pain 0/10; jv1 20:50 BP 150 / 74; Pulse 65; Resp 18; Temp 98.2; Pulse Ox 99% on R/A; Pain 0/10; jv1 14:07 Body Mass Index 26.99 (90.26 kg, 182.88 cm) iw MDM: 14:59 Patient medically screened. 15:35 Physician consultation: Dinesh Chawla MD was called at 15:36, left message on voicemail. 16:00 Differential diagnosis: gastritis, diverticulitis, hemorrhoids, upper GI bleed, anemia. 17:00 Data reviewed: vital signs, nurses notes, lab test result(s), EKG. 17:00 Test interpretation: by ED physician or midlevel provider: ECG. Counseling: I had a cp detailed discussion with the patient and/or guardian regarding: the historical points, exam findings, and any diagnostic results supporting the discharge/admit diagnosis, lab results, radiology results, the need to transfer to another facility, [facility] does not immediately have the required specialist. 18:29 Physician consultation: was contacted at 16:25, regarding regarding transfer, to [facility]. patient's condition, DR Ku, hospitalist, will be accepting physician. 03/08 15:13 Order name: Basic Metabolic Panel cp 03/08 15:13 Order name: CBC with Diff cp 03/08 15:13 Order name: LFT's cp 03/08 15:13 Order name: Magnesium cp 03/08 15:13 Order name: NT PRO-BNP; Complete Time: 16:31 03/08 15:13 Order name: PT-INR; Complete Time: 16:31 03/08 16:31 Interpretation: Reviewed. 03/08 15:13 Order name: Troponin (emerg Dept Use Only); Complete Time: 16:31 03/08 15:13 Order name: Basic Metabolic Panel; Complete Time: 16:31 EDMS 03/08 17:27 Interpretation: Normal except: CL 109; BUN 25; GFR 69. cp 03/08 15:13 Order name: CBC with Automated Diff; Complete Time: 16:31 EDMS 03/08 16:31 Interpretation: Normal except: RBC 3.81; HGB 12.7; HCT 37.0. cp 03/08 15:13 Order name: Liver (Hepatic) Function; Complete Time: 16:31 EDMS 03/08 15:13 Order name: Magnesium; Complete Time: 16:31 EDMS 03/08 15:32 Order name: Type And Screen; Complete Time: 16:46 ca1 03/08 15:13 Order name: EKG; Complete Time: 15:13 cp 03/08 15:13 Order name: Cardiac monitoring; Complete Time: 15:49 cp 03/08 15:13 Order name: EKG - Nurse/Tech; Complete Time: 15:49 cp 03/08 15:13 Order name: IV Saline Lock; Complete Time: 15:37 cp 03/08 15:13 Order name: Labs collected and sent; Complete Time: 15:37 cp 03/08 15:13 Order name: O2 Per Protocol; Complete Time: 15:37 cp 03/08 15:13 Order name: O2 Sat Monitoring; Complete Time: 15:37 cp EC:50 Rate is 66 beats/min. Rhythm is regular. MS interval is normal. QRS interval is normal. cp QT interval is normal. T waves are Inverted in lead aVR. Interpreted by me. Reviewed by me. Administered Medications: 15:35 Drug: ProTONIX 8 mg/hr Route: IV; Rate: 25 ml/hr; Site: right antecubital; ca1 17:09 Follow up: Response: No adverse reaction; IV Status: Infusion continued upon transfer ca1 15:49 Drug: ProTONIX 40 mg Route: IVP; Site: right antecubital; ca1 17:09 Follow up: Response: No adverse reaction ca1 Disposition: 03/09 07:16 Co-signature as Attending Physician, Meliton Rivera MD I agree with the assessment and kdr plan of care. Disposition: 03/08/20 16:33 Transfer ordered to [facility]. Diagnosis is Melena. - Reason for transfer: Higher level of care. - Accepting physician is Doctor. - Condition is Stable. - Problem is new. - Symptoms have improved. Signatures: Dispatcher [employer] EDNH Meliton Rivera MD MD kdr Marichuy Beyer RN RN iw Bonita Chong RN RN cr4 Italo Del Toro PA PA cp Clarita Perez RN RN ca1 Corrections: (The following items were deleted from the chart) 03/08 15:41 15:13 Chest Single View+RAD.RAD.BRZ ordered. [facility] 21:02 16:33 03/08/2020 16:33 Transfer ordered to [facility]. cr4 Diagnosis is Melena. Reason for transfer: Higher level of care. Accepting physician is Doctor. Condition is Stable. Problem is new. Symptoms have improved. cp
[2020-03-13 21:54] VITALS: BP 140/70; TEMP 98.2; O2SAT 99
== END 2020-03-08 21:02 | disposition short-term general hospital (02) ==
LOC: ER 13:09
DX: K92.1 Melena (principal); Z98.890 Other specified postprocedural states; Z88.6 Allergy status to analgesic agent; Z88.8 Allergy status to other drugs, medicaments and biological substances
CPT/HCPCS: 96365; 93005; 85025; 80048; 36415; 86900; 83735; 86850; 85610; 86901; 80076; 84484; 83880; 99285; 96366; C9113 ×2; J7050

== ENCOUNTER 2021-02-05 06:27 | Observation (INO) | payer OTHER ==
[2021-02-05] MEDS ORDERED: LORazepam 2 MG/ML VIAL ONE (06:46)
[2021-02-05] MEDS ORDERED: MAGNESIUM SULFATE 1 gm IVPB 1 GM/100 ML BAG IV ONE (06:47)
[2021-02-05 07:03] LABS: Urine Blood Negative (Negative); Urine Glucose Negative (Negative); Urine Protein Negative (Negative); Urine pH 6.5 (5.0-7.0)
[2021-02-05 07:26] LABS: Barbiturates NEGATIVE (NEGATIVE); Benzodiazepines NEGATIVE (NEGATIVE); Cocaine NEGATIVE (NEGATIVE); METHAMPHETAM NEGATIVE (NEGATIVE); Methadone NEGATIVE (NEGATIVE); Opiates NEGATIVE (NEGATIVE); Phencyclidine NEGATIVE (NEGATIVE); THC Cannibis NEGATIVE (NEGATIVE)
[2021-02-05 07:26] LABS: Absolute Lymphocytes (CBC) 2.7 K/uL (0.7-4.9); Basophils % 0.5 % (0-1.3); Hematocrit 39.2 % (39.6-49.0); Lymphocytes % 37.2 % (15.3-44.8); RBC Red Blood Cell Count 4.04 M/uL (4.33-5.43)
[2021-02-05 07:28] LABS: Protime INR 4.45
[2021-02-05 07:32] LABS: ALT/SGPT 21 U/L (12-78); AST/SGOT 27 U/L (15-37); BUN Blood Urea Nitrogen 17 mg/dL (7-18); Bicarbonate 23 mmol/L (21-32); Bilirubin Direct < 0.1 mg/dL (0-0.2); Bilirubin Total 0.7 mg/dL (0.2-1.0); Glucose Level 99 mg/dL (74-106); Magnesium 2.1 mg/dL (1.8-2.4); Potassium 3.7 mmol/L (3.5-5.1); Protein, Total 7.5 g/dL (6.4-8.2); Sodium Level 141 mmol/L (136-145)
[2021-02-05 07:36] LABS: Alkaline Phosphatase 83 U/L (45-117); NT PRO-BNP 549 pg/mL (<125); Troponin (Emerg Dept Use Only) < 0.02 ng/mL (0.0-0.045)
--- NOTE | 2021-02-05 08:29 | EDPHYS ---
Physician Documentation [facility] Name: Abdirizak Diaz Age: 70 yrs Sex: Male : 1950 Arrival Date: 02/05/2021 Time: 06:28 Bed 6 Private MD: ED Physician Evens Shah HPI: 02/05 06:45 This 70 yrs old Male presents to ER via Unassigned with complaints of High cp Blood Pressure, Shaky. 06:45 The patient or guardian reports chest pain that is located primarily in the anterior cp chest wall. 06:45 Onset: this morning. Associated signs and symptoms: Pertinent positives: tremor, cp Pertinent negatives: abdominal pain, diaphoresis, lower extremity pain, lower extremity swelling, vomiting. The chest pain is described as tightness. Duration: The patient or guardian reports a single episode, that is still ongoing. Historical: - Allergies: 06:51 Aspirin; df1 06:51 Keppra; df1 06:48 Aspirin; tw5 06:48 Keppra; tw5 - Home Meds: 06:48 loratadine 10 mg oral cap [Active]; Vimpat 50 mg oral tab 1 tab 2 times per day tw5 [Active]; levothyroxine 75 mcg cap 1 cap once daily [Active]; Levothroid 100 mcg Oral tab 1 tab once daily [Active]; lamotrigine 150 mg oral tab 1 tab once daily [Active]; atorvastatin 40 mg oral tab 1 tab once daily [Active]; valsartan 80 mg oral tab 1 tab once daily [Active]; Vimpat 200 mg oral tab 1 tab 2 times per day [Active]; - PMHx: 06:51 High Cholesterol; Hypertension; Seizures; df1 - PSHx: 06:51 mechanical valve; Cholecystectomy; df1 - Immunization history:: Adult Immunizations up to date, Client reports receiving the 2nd dose of the Covid vaccine. - Social history:: Smoking status: Patient/guardian denies using tobacco, the patient reports quitting approximately 30 years ago. ROS: 06:50 Constitutional: Negative for body aches, chills, fever, poor PO intake. cp 06:50 Cardiovascular: Positive for chest pain, Negative for edema, palpitations. cp 06:50 Respiratory: Negative for cough, shortness of breath, wheezing. 06:50 Abdomen/GI: Negative for abdominal pain, vomiting, diarrhea, constipation. 06:50 Back: Negative for pain at rest, pain with movement. 06:50 Neuro: Negative for altered mental status, dizziness, headache, syncope, weakness. 06:50 All other systems are negative. Exam: 06:43 ECG was reviewed by the Attending Physician. cp 06:55 Head/Face: Normocephalic, atraumatic. cp 06:55 Constitutional: The patient appears in no acute distress, alert, awake, non-diaphoretic, non-toxic, well developed, well nourished, anxious. 06:55 Eyes: Periorbital structures: appear normal, Conjunctiva: normal, no exudate, no injection, Sclera: no appreciated abnormality, Lids and lashes: appear normal, bilaterally. 06:55 ENT: External ear(s): are unremarkable, Nose: is normal, Mouth: Lips: moist, Oral mucosa: pink and intact, moist, Posterior pharynx: Airway: no evidence of obstruction, patent. 06:55 Neck: ROM/movement: is normal, is supple, without pain, no range of motions limitations, no nuchal rigidity. 06:55 Chest/axilla: Inspection: noted surgical scar mid chest, Palpation: is normal, no crepitus, no tenderness. 06:55 Cardiovascular: Rate: normal, Rhythm: regular, Edema: is not appreciated, JVD: is not appreciated. 06:55 Respiratory: the patient does not display signs of respiratory distress, Respirations: labored breathing, is not present, intercostal retractions, are absent, shallow respirations, that is mild, Breath sounds: are clear throughout, no decreased breath sounds, no stridor, no wheezing. 06:55 Abdomen/GI: Inspection: scar(s), are noted in the epigastric area and right upper quadrant, Bowel sounds: active, all quadrants, Palpation: abdomen is soft and non-tender, in all quadrants, voluntary guarding, is not appreciated, involuntary guarding, is not appreciated. 06:55 Back: CVA tenderness, is absent. 06:55 Skin: cellulitis, is not appreciated, no rash present. 06:55 Neuro: Orientation: to person, place \T\ time. Mentation: is normal, Motor: moves all fours, strength is normal, Sensation: is normal. 06:55 Psych: Behavior/mood is anxious, Patient has no thoughts/intents to harm self or others. Judgement / Insight is normal. 08:17 ECG was reviewed by the Attending Physician. cp Vital Signs: 06:50 BP 165 / 176; Pulse 95; Resp 20; Temp 98.3; Pulse Ox 95% on R/A; Weight 90.72 kg; df1 Height 6 ft. 0 in. (182.88 cm); Pain 8/10; 06:54 BP 175 / 74; Pulse 86; Resp 20 S; Pulse Ox 95% ; bb 07:08 BP 161 / 91; Pulse 80; Resp 18; Pulse Ox 96% on R/A; df1 10:08 BP 118 / 89; Pulse 63; Resp 17; Pulse Ox 100% on R/A; jt3 10:59 BP 167 / 93; Pulse 68; Resp 17; Pulse Ox 100% on R/A; jt3 12:29 BP 174 / 87; Pulse 67; Resp 16; Pulse Ox 99% on R/A; jt3 13:39 BP 160 / 94; Pulse 65; Resp 17; Pulse Ox 100% on R/A; jt3 06:50 Body Mass Index 27.12 (90.72 kg, 182.88 cm) df1 MDM: 06:42 Patient medically screened. cp 08:30 The patient was not given aspirin in the Emergency Department. Not indicated due to cp patient's past medical history. 08:30 Differential diagnosis: abnormal EKG, acute myocardial infarction, pericarditis, cp pneumonia, pneumothorax, unstable angina. Data reviewed: vital signs, nurses notes, lab test result(s), EKG, radiologic studies, plain films. Test interpretation: by ED physician or midlevel provider: ECG, plain radiologic studies. Response to treatment: the patient's symptoms have markedly improved after treatment, and as a result, I will discharge patient. Physician consultation: Hai Jaimes DO was called at 08:25, was contacted at 08:25, regarding admission, to the telemetry unit. patient's condition, and will see patient in ED, shortly. 02/05 06:35 Order name: Basic Metabolic Panel 2 02/05 06:35 Order name: CBC with Diff; Complete Time: 07:34 2 02/05 07:34 Interpretation: Normal except: RBC 4.04; HGB 13.3; HCT 39.2; MPV 7.0. cp 02/05 06:35 Order name: LFT's; Complete Time: 07:56 mw2 02/05 06:35 Order name: Magnesium; Complete Time: 07:56 mw2 02/05 06:35 Order name: NT PRO-BNP; Complete Time: 07:56 mw2 02/05 07:57 Interpretation: Abnormal: NT PRO-BNP 549. cp 02/05 06:35 Order name: PT-INR; Complete Time: 07:34 mw2 02/05 07:35 Interpretation: Abnormal: INR 4.45; PT 51.9. cp 02/05 06:35 Order name: Troponin (emerg Dept Use Only); Complete Time: 07:56 mw2 02/05 07:57 Interpretation: TROPED < 0.02; Reviewed. cp 02/05 06:36 Order name: Basic Metabolic Panel; Complete Time: 07:56 EDMS 02/05 07:35 Interpretation: Normal except: CL 112; GFR 80. cp 02/05 06:45 Order name: ETOH Level; Complete Time: 07:56 cp 02/05 06:45 Order name: UDS; Complete Time: 07:34 cp 02/05 06:45 Order name: Lipase; Complete Time: 07:56 cp 02/05 07:57 Interpretation: Within normal limits: LIP 174. cp 02/05 07:02 Order name: Urine Dipstick-Ancillary; Complete Time: 07:34 EDMS 02/05 07:15 Order name: D-Dimer; Complete Time: 07:34 EDMS 02/05 07:35 Interpretation: D-DIMER 393; Reviewed. 02/05 06:35 Order name: XRAY Chest (1 view) mw2 02/05 06:35 Order name: EKG; Complete Time: 06:37 mw2 02/05 06:35 Order name: Cardiac monitoring; Complete Time: 07:06 mw2 02/05 06:35 Order name: EKG - Nurse/Tech; Complete Time: 07:06 mw2 02/05 07:56 Order name: SARS-COV-2 RT PCR EDMS 02/05 07:58 Order name: EKG; Complete Time: 07:59 cp 02/05 13:18 Order name: Creatine Phosphokinase EDMS 02/05 13:18 Order name: CKMB Creatine Kinase MB EDMS 02/05 13:18 Order name: Troponin I [facility] 02/05 13:18 Order name: Lipid Profile [facility] 02/05 13:18 Order name: T4 Free [facility] 02/05 13:18 Order name: Thyroid Stimulating Hormone [facility] 02/05 06:35 Order name: IV Saline Lock; Complete Time: 07:06 2 02/05 06:35 Order name: Labs collected and sent; Complete Time: 07:06 2 02/05 06:35 Order name: O2 Per Protocol; Complete Time: 07:06 2 02/05 06:35 Order name: O2 Sat Monitoring; Complete Time: 07:06 2 02/05 07:58 Order name: EKG - Nurse/Tech; Complete Time: 08:24 cp EC:43 Rate is 97 beats/min. Rhythm is regular. VA interval is normal. QRS interval is normal. cp QT interval is normal. Interpreted by me. Reviewed by me. 08:17 Rate is 73 beats/min. Rhythm is regular. VA interval is normal. QRS interval is normal. cp QT interval is prolonged at 422 msec. T waves are Inverted in leads aVL, aVR. Interpreted by me. Reviewed by me. Administered Medications: 06:48 Drug: Magnesium Sulfate 1 grams Route: IVPB; Infused Over: 1 hrs; Site: left mr2 antecubital; 07:58 Follow up: Response: No adverse reaction; IV Status: Completed infusion; IV Intake: jt3 100ml 06:48 Drug: Ativan (LORazepam) 1 mg Route: IVP; Site: left antecubital; mr2 07:59 Follow up: Response: No adverse reaction; Anxiety decreased jt3 08:54 Not Given (Physician Discretion): PlaVIX (clopidogrel) 75 mg PO once cp Disposition: 08:45 Chart complete. cp 16:19 Co-signature as Attending Physician, Evens Shah MD. pkl Disposition Summary: 02/05/21 08:28 Hospitalization Ordered Hospitalization Status: Observation cp Provider: Hai Jaimes cp Location: Telemetry/MedSurg (observation) cp Condition: Stable cp Problem: new cp Symptoms: have improved cp Bed/Room Type: Standard cp Room Assignment: cp Diagnosis - Chest pain, unspecified cp Forms: - Medication Reconciliation Form cp - SBAR form cp Signatures: Dispatcher [employer] EDMS Shah, MD MD paulina Horner Corey, PA PA cp Katie PuckettMaggi mw2 Avel Romero RN RN mr2 Alexus Luna df1 Sada Lemus tw5 Preston Mc RN jt3 Corrections: (The following items were deleted from the chart) 06:54 06:48 PMHx: Seizures; 06:54 06:48 PMHx: Hypertension; 06:54 06:48 PMHx: High Cholesterol; 07:14 06:45 D-DIMER+COAG.LAB.BRZ ordered. EDMS EDMS 07:56 07:20 CORONAVIRUS+MR.LAB.BRZ ordered. EDMS EDMS :33 02/04 06:55 Constitutional: The patient appears in no acute distress, alert, awake, cp non-diaphoretic, non-toxic, well developed, well nourished, anxious, cp 02/06 20:02/04 06:55 Head/Face: Normocephalic, atraumatic. cp cp 02/06 20:02/04 06:55 Eyes: Periorbital structures: appear normal, Conjunctiva: normal, no cp exudate, no injection, Sclera: no appreciated abnormality, Lids and lashes: appear normal, bilaterally, cp 02/06 20:02/04 06:55 ENT: External ear(s): are unremarkable, Nose: is normal, Mouth: Lips: cp moist, Oral mucosa: pink and intact, moist, Posterior pharynx: Airway: no evidence of obstruction, patent, cp 02/06 20:02/04 06:55 Neck: ROM/movement: is normal, is supple, without pain, no range of motions cp limitations, no nuchal rigidity, cp 02/06 20:02/04 06:55 Chest/axilla: Inspection: noted surgical scar mid chest, Palpation: is cp normal, no crepitus, no tenderness, cp 02/06 20:02/04 06:55 Cardiovascular: Rate: normal, Rhythm: regular, Edema: is not appreciated, cp JVD: is not appreciated, cp 02/06 20:02/04 06:55 Respiratory: the patient does not display signs of respiratory distress, cp Respirations: labored breathing, is not present, intercostal retractions, are absent, shallow respirations, that is mild, Breath sounds: are clear throughout, no decreased breath sounds, no stridor, no wheezing, cp 02/06 20:02/04 06:55 Abdomen/GI: Inspection: scar(s), are noted in the epigastric area and right cp upper quadrant, Bowel sounds: active, all quadrants, Palpation: abdomen is soft and non-tender, in all quadrants, voluntary guarding, is not appreciated, involuntary guarding, is not appreciated, cp 02/06 20:02/04 06:55 Back: CVA tenderness, is absent, cp cp 02/06 20:02/04 06:55 Skin: cellulitis, is not appreciated, no rash present. cp cp 02/06 20:02/04 06:55 Neuro: Orientation: to person, place \T\ time. Mentation: is normal, Motor: cp moves all fours, strength is normal, Sensation: is normal, cp 02/06 20:02/04 06:55 Psych: Behavior/mood is anxious, Patient has no thoughts/intents to harm cp self or others. Judgement / Insight is normal. cp 02/06 20: 20:33 The patient was not given aspirin in the Emergency Department. Not indicated due cp to patient's past medical history. cp 20:36 06:55 Neuro: Orientation: to person, place \T\ time. Mentation: is normal, Motor: moves cp all fours, strength is normal, Sensation: is normal, cp
--- NOTE | 2021-02-05 08:29 | ER ---
Nurse's Notes [facility] Name: Abdirizak Diaz Age: 70 yrs Sex: Male : 1950 Arrival Date: 02/05/2021 Time: 06:28 Bed 6 Private MD: Diagnosis: Chest pain, unspecified Presentation: 02/05 06:50 Chief complaint: Patient states: htn/tremors. Coronavirus screen: Vaccine status: df1 Patient reports receiving the 2nd dose of the covid vaccine. Client denies travel out of the [place] in the last 14 days. At this time, the client does not indicate any symptoms associated with coronavirus-19. Ebola Screen: Patient negative for fever greater than or equal to 101.5 degrees Fahrenheit, and additional compatible Ebola Virus Disease symptoms Patient denies exposure to infectious person. Patient denies travel to an Ebola-affected area in the 21 days before illness onset. Initial Sepsis Screen: Does the patient meet any 2 criteria? No. Patient's initial sepsis screen is negative. Does the patient have a suspected source of infection? No. Patient's initial sepsis screen is negative. Risk Assessment: Do you want to hurt yourself or someone else? Patient reports no desire to harm self or others. Onset of symptoms was February 05, 2021 at 03:00. 06:50 Method Of Arrival: Ambulatory df1 06:50 Acuity: ERIBERTO 3 df1 Triage Assessment: 06:52 General: Appears distressed, uncomfortable, Behavior is anxious. Pain: Complains of df1 pain in chest Pain does not radiate. Historical: - Allergies: 06:51 Aspirin; df1 06:51 Keppra; df1 06:48 Aspirin; tw5 06:48 Keppra; tw5 - Home Meds: 06:48 loratadine 10 mg oral cap [Active]; Vimpat 50 mg oral tab 1 tab 2 times per day tw5 [Active]; levothyroxine 75 mcg cap 1 cap once daily [Active]; Levothroid 100 mcg Oral tab 1 tab once daily [Active]; lamotrigine 150 mg oral tab 1 tab once daily [Active]; atorvastatin 40 mg oral tab 1 tab once daily [Active]; valsartan 80 mg oral tab 1 tab once daily [Active]; Vimpat 200 mg oral tab 1 tab 2 times per day [Active]; - PMHx: 06:51 High Cholesterol; Hypertension; Seizures; df1 - PSHx: 06:51 mechanical valve; Cholecystectomy; df1 - Immunization history:: Adult Immunizations up to date, Client reports receiving the 2nd dose of the Covid vaccine. - Social history:: Smoking status: Patient/guardian denies using tobacco, the patient reports quitting approximately 30 years ago. Screenin:52 Abuse screen: Denies threats or abuse. Nutritional screening: No deficits noted. df1 Tuberculosis screening: No symptoms or risk factors identified. Fall Risk None identified. Assessment: 07:08 General: Appears uncomfortable, Behavior is anxious. Pain: Denies pain. Neuro: Reports df1 tremors. Cardiovascular: No deficits noted. Respiratory: Airway is patent Trachea midline Respiratory effort is even, shallow, Respiratory pattern is regular, symmetrical, Breath sounds are clear bilaterally. GI: Scar to RUQ from Cholecystectomy 30 years prior Bowel sounds present X 4 quads. Abd is soft and non tender. : No deficits noted. : No deficits noted. Derm: No deficits noted. Musculoskeletal: No deficits noted. 10:09 Reassessment: Per hospitalist Doctor, okay for patient to take home medications. . jt3 Vital Signs: 06:50 BP 165 / 176; Pulse 95; Resp 20; Temp 98.3; Pulse Ox 95% on R/A; Weight 90.72 kg; df1 Height 6 ft. 0 in. (182.88 cm); Pain 8/10; 06:54 BP 175 / 74; Pulse 86; Resp 20 S; Pulse Ox 95% ; bb 07:08 BP 161 / 91; Pulse 80; Resp 18; Pulse Ox 96% on R/A; df1 10:08 BP 118 / 89; Pulse 63; Resp 17; Pulse Ox 100% on R/A; jt3 10:59 BP 167 / 93; Pulse 68; Resp 17; Pulse Ox 100% on R/A; jt3 12:29 BP 174 / 87; Pulse 67; Resp 16; Pulse Ox 99% on R/A; jt3 13:39 BP 160 / 94; Pulse 65; Resp 17; Pulse Ox 100% on R/A; jt3 06:50 Body Mass Index 27.12 (90.72 kg, 182.88 cm) df1 ED Course: 06:28 Patient arrived in ED. bp1 06:32 Avel Romero, RN is Primary Nurse. mr2 06:36 Italo Del Toro PA is PHCP. cp 06:36 Cesar Oseguera MD is Attending Physician. cp 06:51 Triage completed. df1 06:53 Arm band placed on right wrist. df1 06:53 Patient has correct armband on for positive identification. Placed in gown. Bed in low df1 position. Call light in reach. Side rails up X 1. monitor technician on. Pulse ox on. NIBP on. 06:53 No provider procedures requiring assistance completed. df1 06:56 XRAY Chest (1 view) In Process Unspecified. EDMS 07:06 Inserted saline lock: 22 gauge 24 gauge wrist, using aseptic technique. Blood ds4 collected. Missed attempt(s): 20 gauge in right hand. Bleeding controlled, band aid applied, catheter tip intact. 07:07 Lipase Sent. df1 07:07 UDS Sent. df1 07:07 ETOH Level Sent. df1 07:07 Basic Metabolic Panel Sent. df1 07:07 Basic Metabolic Panel Sent. df1 07:30 Evens Shah MD is Attending Physician. cp 08:28 Hai Jaimes DO is Hospitalizing Provider. cp Administered Medications: 06:48 Drug: Magnesium Sulfate 1 grams Route: IVPB; Infused Over: 1 hrs; Site: left mr2 antecubital; 07:58 Follow up: Response: No adverse reaction; IV Status: Completed infusion; IV Intake: jt3 100ml 06:48 Drug: Ativan (LORazepam) 1 mg Route: IVP; Site: left antecubital; mr2 07:59 Follow up: Response: No adverse reaction; Anxiety decreased jt3 08:54 Not Given (Physician Discretion): PlaVIX (clopidogrel) 75 mg PO once cp Intake: 07:58 IV: 100ml; Total: 100ml. jt3 Outcome: 08:28 Decision to Hospitalize by Provider. cp 14:23 Patient left the ED. iw Signatures: Dispatcher [employer] EDMS Elysia Smith RN RN bb Marichuy Beyer RN RN iw Baldemar Marino ds4 Italo Del Toro PA PA cp Ly Calderon bp1 Avel Romero RN RN mr2 Alexus Luna df1 Sada Lemus tw5 Preston Mc, RN RN jt3 Corrections: (The following items were deleted from the chart) 06:54 06:48 PMHx: Seizures; :54 06:48 PMHx: Hypertension; 06:54 06:48 PMHx: High Cholesterol; 07:14 07:07 D-DIMER+COAG.LAB.BRZ drawn and sent. df1 EDMS 07:56 07:37 CORONAVIRUS+MR.LAB.BRZ drawn and sent. jt3 EDMS
--- NOTE | 2021-02-05 09:13 | RAD REPORT ---
EXAM DESCRIPTION: RAD - Chest Single View - 02/05/2021 8:23 am CLINICAL HISTORY: shortness of breath Chest pain. COMPARISON: Chest Single View dated 02/04/2018; Chest Single View dated 01/12/2018; Chest Single View dated 01/11/2018; Chest Single View dated 01/10/2018 FINDINGS: Portable technique limits examination quality. Mild pulmonary edema is seen. The heart is moderately enlarged in size. Sternotomy wires are present. IMPRESSION: Mild CHF versus volume overload pattern.
--- NOTE | 2021-02-05 09:14 | P.HP ---
Certification for Inpatient Patient admitted to: Observation With expected LOS: <2 Midnights Patient will require the following post-hospital care: None Practitioner: I am a practitioner with admitting privileges, knowledge of patient current condition, hospital course, and medical plan of care. Services: Services provided to patient in accordance with Admission requirements found in Title 42 Section 412.3 of the Code of Federal Regulations Patient History Date of Service: 02/05/21 Primary Care Provider: Dr. Kelsey; Cardiology-Dr. Haynes Reason for admission: Chest pain, elevated blood pressure History of Present Illness: 70-year-old male with history of hypertension, hyperlipidemia, seizure disorder, aortic valve replacement on Coumadin, and hypothyroidism. Patient woke up this morning with chest pain. It was more of a tightness. It was associated with increased anxiety. He had poor sleep overnight. He had some agitation this morning. Blood pressures also have been elevated. He apparently had not taken his blood pressure medication valsartan for several days. Due to his symptoms the patient came to the ER for further evaluation. He denied any shortness of breath, nausea vomiting, In the ER patient was evaluated. Blood pressures were elevated in the ER. Vital signs stable. Troponin unremarkable. BNP 549. Urinalysis unremarkable. Urine drug screen negative. White count 7.3, hemoglobin 13.3. Sodium 141, potassium 3.7. Creatinine 0.94 with a blood sugar of 99. Patient was admitted for observation. Patient reports seen by cardiology on a regular basis. His INR is being managed by cardiology and adjusted frequently. Patient reports having cardiac stress test recently. Allergies levetiracetam [From [facility]] Allergy (Verified 01/10/18 06:11) doesnt work aspirin Adverse Reaction (Intermediate, Verified 01/10/18 06:11) TAKES COUMADIN Home medications list reviewed: Yes Home Medications: Ascorbic Acid [Vitamin C] 1,000 mg PO DAILY 12/31/17 Cholecalciferol (Vitamin D3) [Vitamin D3] 2,000 unit PO DAILY 12/31/17 Codeine/APAP [Tylenol #3*] 1 tab PO Q6HP PRN 12/31/17 Cyanocobalamin [Vitamin B-12*] 3,000 mcg PO DAILY 12/31/17 Lacosamide [Vimpat] 200 mg PO BID 12/31/17 Loratadine [Claritin*] 10 mg PO DAILY 12/31/17 Simvastatin 40 mg PO DAILY 12/31/17 Ubidecarenone [Co Q-10] 200 mg PO DAILY 12/31/17 lamoTRIgine [Lamotrigine Odt] 200 mg PO BID 12/31/17 Warfarin Sodium [Coumadin*] 5 mg PO DAILY 5 PM tab 01/23/18 - Past Medical/Surgical History Diabetic: No -: Hypertension -: Aortic valve replacement on Coumadin -: Hyperlipidemia -: Seizure disorder -: Hypothyroidism -: Hernia repair -: Aortic valve replacement Psychosocial/ Personal History: Patient is - Family History Family History: Reviewed- Non-Contributory - Family History Mother Notes: no significant family history per pt - Social History Smoking Status: Never smoker Alcohol use: No CD- Drugs: No Caffeine use: No Place of Residence: Home Review of Systems General: As per HPI Eyes: Unremarkable ENT: Unremarkable Respiratory: Unremarkable Cardiovascular: Chest Pain, As per HPI Gastrointestinal: Unremarkable Genitourinary: Unremarkable Musculoskeletal: Unremarkable Integumentary: Unremarkable Neurological: As per HPI Lymphatics: Unremarkable Physical Examination - Studies Laboratory Data (last 24 hrs) 02/05/21 06:56: Lipase 174 02/05/21 06:56: PT 51.9 H, INR 4.45 H* 02/05/21 06:56: WBC 7.30, Hgb 13.3 L, Hct 39.2 L, Plt Count 244 02/05/21 06:56: Sodium 141, Potassium 3.7, BUN 17, Creatinine 0.94, Glucose 99, Magnesium 2.1, Total Bilirubin 0.7, AST 27, ALT 21, Alkaline Phosphatase 83 Assessment and Plan - Plan COVID: pending Chest x-ray: Unremarkable Physical Exam: GENERAL: The patient is a well-developed, well-nourished, in no apparent distress. Alert and oriented x3. VITAL SIGNS: Reviewed HEENT: Head is normocephalic and atraumatic. Extraocular muscles are intact. Pupils are equal, round, and reactive to light and accommodation. Nares appeared normal. Mouth is well hydrated and without lesions. Mucous membranes are moist. NECK: Supple. No carotid bruits. No lymphadenopathy or thyromegaly. LUNGS: Clear to auscultation. No crackles or wheezes are heard. HEART: Regular rate and rhythm, no appreciable gallops, rubs, murmurs or extra heart sounds ABDOMEN: Soft, nontender, and nondistended. Positive bowel sounds. No hepatosplenomegaly was noted. EXTREMITIES: Without any cyanosis, clubbing, rash, lesions or peripheral edema. NEUROLOGIC: The patient is oriented to person, place and time. Strength and sensation are grossly intact. Face is symmetric. SKIN: Normal color, turgor and temperature. No ulcerations or rashes noted. Impression: Chest pain Hypertension with elevated blood pressure Aortic valve replacement on chronic Coumadin, INR supratherapeutic Seizure disorder Hyperlipidemia Hypothyroidism Plan: Chest pain: Patient will be admitted for further evaluation and treatment. We will continue to monitor cardiac enzymes and telemetry. Will consult cardiology who the patient sees regularly. Restart blood pressure medication which he has not been taking for several days. Patient reports having cardiac stress test evaluation recently with cardiology. He reports this was unremarkable. Anticipate continued improvement. Possible discharge later today after seen by cardiology if work-up unremarkable. Hypertension with elevated blood pressure: Patient has not been taking his blood pressure medication by accident. Restart valsartan 80 mg daily. Will monitor and adjust appropriately. Aortic valve replacement on chronic Coumadin, INR supratherapeutic: His Coumadin has been adjusted frequently. His INR has been fluctuating. Will decrease Coumadin to 2 mg daily. Seizure disorder: Continue with Vimpat 250 mg 1 pill twice daily and lamotrigine 150 mg daily and 200 mg at bedtime. Hyperlipidemia: Continue with Lipitor 40 mg daily. Will check fasting lipid panel. Hypothyroidism: Continue with levothyroxine 100 mcg daily. Will check TSH and free T4. Code Status: Full Code DVT prophylaxis: Lovenox Advanced Care Planning-30 minutes: Home at discharge Discharge Plan: Home Plan to discharge in: 24 Hours - Advance Directives Does patient have a Living Will: No Does patient have a Durable POA for Healthcare: Yes - Code Status/Comfort Care Code Status Assessed: Yes (Full code) Time Spent Managing Pts Care (In Minutes): 55
--- NOTE | 2021-02-05 11:39 | P.DS ---
Admission Date: 02/05/21 Discharge Date: 02/05/21 Primary Care Provider: Dr. Kelsey; Cardiology-Dr. Haynes Disposition: ROUTINE DISCHARGE Discharge Condition: GOOD Reason for Admission: Chest pain, elevated blood pressure Consultations: Cardiology-Dr. Haynes Procedures: COVID: negative Chest x-ray: COMPARISON: Chest Single View dated 02/04/2018; Chest Single View dated 01/12/2018; Chest Single View dated 01/11/2018; Chest Single View dated 01/10/2018 FINDINGS: Portable technique limits examination quality. Mild pulmonary edema is seen. The heart is moderately enlarged in size. Sternotomy wires are present. IMPRESSION: Mild CHF versus volume overload pattern. Medical problem list: Chest pain Hypertension with elevated blood pressure Aortic valve replacement on chronic Coumadin, INR supratherapeutic Seizure disorder Hyperlipidemia Hypothyroidism Brief History of Present Illness: 70-year-old male with history of hypertension, hyperlipidemia, seizure disorder, aortic valve replacement on Coumadin, and hypothyroidism. Patient woke up this morning with chest pain. It was more of a tightness. It was associated with increased anxiety. He had poor sleep overnight. He had some agitation this morning. Blood pressures also have been elevated. He apparently had not taken his blood pressure medication valsartan for several days. Due to his symptoms the patient came to the ER for further evaluation. He denied any shortness of breath, nausea vomiting, In the ER patient was evaluated. Blood pressures were elevated in the ER. Vital signs stable. Troponin unremarkable. BNP 549. Urinalysis unremarkable. Urine drug screen negative. White count 7.3, hemoglobin 13.3. Sodium 141, potassium 3.7. Creatinine 0.94 with a blood sugar of 99. Patient was admitted for observation. Patient reports seen by cardiology on a regular basis. His INR is being managed by cardiology and adjusted frequently. Patient reports having cardiac stress test recently. Hospital Course: Patient presented with chest pain. Cardiac enzymes unremarkable. No significant EKG changes noted. Case discussed in detail with cardiology. No further intervention was required. Patient has done well. Patient without chest pain at discharge. At discharge patient will continue with his current medications including valsartan 80 mg daily. Patient will need to follow-up with cardiology tomorrow to follow-up his hospitalization and continue his care. Patient with hypertension. Blood pressures have been elevated recently. He forgot to take his blood pressure medication by accident. This was restarted. Blood pressure improved. At discharge patient will continue with valsartan 80 mg daily. Recommend to maintain blood pressure less than 130/80. Further adjustment can be done by his PCP or cardiology. Patient with aortic valve replacement on chronic Coumadin. INR was supratherapeutic at 4.4. Goal INR should be between 2.5 and 3.5. Recommend to decrease Coumadin to 2 mg daily. Recommend to recheck INR within 1 week. Follow-up with cardiology to further monitor and adjust medication. Patient with seizure disorder. At discharge patient will continue with his medication of Vimpat 250 mg 1 pill twice daily and lamotrigine 150 mg daily and 200 mg at bedtime. Patient with hyperlipidemia. At discharge patient will continue with Lipitor 40 mg daily. Patient with hypothyroidism. At discharge patient will continue with levothyroxine 100 mcg daily. General: Alert, In no apparent distress, Oriented x3, Cooperative HEENT: Atraumatic Neck: Supple Respiratory: Clear to auscultation bilaterally, Normal air movement Cardiovascular: Normal pulses, Regular rate/rhythm Gastrointestinal: Normal bowel sounds, No ascites, No masses, No rebound, No guarding Integumentary: No tenderness/swelling, No erythema, No warmth, No cyanosis Neurological: Normal speech, Normal strength at 5/5 x4 extr, Normal tone Laboratory Data at Discharge: WBC 7.30 K/uL (4.3-10.9) 02/05/21 06:56 Hgb 13.3 g/dL (13.6-17.9) L 02/05/21 06:56 Hct 39.2 % (39.6-49.0) L 02/05/21 06:56 Plt Count 244 K/uL (152-406) 02/05/21 06:56 PT 51.9 SECONDS (9.5-12.5) H 02/05/21 06:56 INR 4.45 H* 02/05/21 06:56 Sodium 141 mmol/L (136-145) 02/05/21 06:56 Potassium 3.7 mmol/L (3.5-5.1) 02/05/21 06:56 BUN 17 mg/dL (7-18) 02/05/21 06:56 Creatinine 0.94 mg/dL (0.55-1.3) 02/05/21 06:56 Glucose 99 mg/dL (74-106) 02/05/21 06:56 Magnesium 2.1 mg/dL (1.8-2.4) 02/05/21 06:56 Total Bilirubin 0.7 mg/dL (0.2-1.0) 02/05/21 06:56 AST 27 U/L (15-37) 02/05/21 06:56 ALT 21 U/L (12-78) 02/05/21 06:56 Alkaline Phosphatase 83 U/L (45-117) 02/05/21 06:56 Lipase 174 U/L (73-393) 02/05/21 06:56 Home Medications: Ascorbic Acid [Vitamin C] 1,000 mg PO DAILY 12/31/17 Cholecalciferol (Vitamin D3) [Vitamin D3] 2,000 unit PO DAILY 12/31/17 Codeine/APAP [Tylenol #3*] 1 tab PO Q6HP PRN 12/31/17 Cyanocobalamin [Vitamin B-12*] 3,000 mcg PO DAILY 12/31/17 Lacosamide [Vimpat] 200 mg PO BID 12/31/17 Loratadine [Claritin*] 10 mg PO DAILY 12/31/17 Simvastatin 40 mg PO DAILY 12/31/17 Ubidecarenone [Co Q-10] 200 mg PO DAILY 12/31/17 lamoTRIgine [Lamotrigine Odt] 200 mg PO BID 12/31/17 Warfarin Sodium [Coumadin*] 5 mg PO DAILY 5 PM tab 01/23/18 Physician Discharge Instructions: Patient presented with chest pain. Cardiac enzymes unremarkable. No significant EKG changes noted. Case discussed in detail with cardiology. No further intervention was required. Patient has done well. Patient without chest pain at discharge. At discharge patient will continue with his current medications including valsartan 80 mg daily. Patient will need to follow-up with cardiology tomorrow to follow-up his hospitalization and continue his care. Patient with hypertension. Blood pressures have been elevated recently. He forgot to take his blood pressure medication by accident. This was restarted. Blood pressure improved. At discharge patient will continue with valsartan 80 mg daily. Recommend to maintain blood pressure less than 130/80. Further adjustment can be done by his PCP or cardiology. Patient with aortic valve replacement on chronic Coumadin. INR was supratherapeutic at 4.4. Goal INR should be between 2.5 and 3.5. Recommend to decrease Coumadin to 2 mg daily. Recommend to recheck INR within 1 week. Follow-up with cardiology to further monitor and adjust medication. Patient with seizure disorder. At discharge patient will continue with his medication of Vimpat 250 mg 1 pill twice daily and lamotrigine 150 mg daily and 200 mg at bedtime. Patient with hyperlipidemia. At discharge patient will continue with Lipitor 40 mg daily. Patient with hypothyroidism. At discharge patient will continue with levothyroxine 100 mcg daily. Diet: AHA Activity: Ad juan Followup: Laure GUY,Savage Hnesley DO [Primary Care Provider] - Time spent managing pt's care (in minutes): 55
[2021-02-05] MEDS ORDERED: ACETAMINOPHEN 500 MG TAB PO PRN (11:52)
[2021-02-05] MEDS ORDERED: LORATADINE 10 MG TAB PO SCH (11:52)
[2021-02-05] MEDS ORDERED: VALSARTAN 80 MG TAB PO SCH (11:52)
[2021-02-05] MEDS ORDERED: FAMOTIDINE 20 MG TAB PO SCH (11:52)
[2021-02-05] MEDS ORDERED: ONDANSETRON 4 MG/2 ML VIAL IV PRN (11:52)
[2021-02-05] MEDS ORDERED: lamoTRIgine 150 MG TAB PO SCH (11:52)
[2021-02-05] MEDS ORDERED: LORAZEPAM 0.5 MG TABLET PO PRN (11:52)
[2021-02-05 11:59] VITALS: O2SAT 98
[2021-02-05] MEDS ORDERED: LACOSAMIDE 50 MG TABLET PO SCH (12:10)
[2021-02-05 13:17] LABS: CKMB Creatine Kinase MB 1.8 ng/mL (1.0-3.6); Creatine Phosphokinase 112 U/L (39-308); HDL Cholesterol 41 mg/dL (40-60); LDL Cholesterol, Calculated 93 (<130); Troponin I < 0.02 ng/mL (0.0-0.045)
[2021-02-05 14:40] VITALS: TEMP 98.3
[2021-02-05] MEDS ORDERED: WARFARIN SODIUM 2 MG TAB PO SCH (17:00)
[2021-02-05] MEDS ORDERED: ATORVASTATIN 40 MG TAB PO SCH (21:00)
[2021-02-05] MEDS ORDERED: lamoTRIgine 100 MG TAB PO SCH (21:00)
[2021-02-06] MEDS ORDERED: LEVOTHYROXINE SOD 0.1 MG TAB PO SCH (06:30)
--- NOTE | 2021-02-06 11:23 | EKG ---
Test Date: 2021-02-05 Test Time: 08:10:45 [employer]i Instructor: XIAO MEASUREMENT RESULTS: Intervals: Rate: 73 [place]: 184 QRSD: 96 QT: 422 QTc: 464 [place]: P: 52 [place]: 184 QRS: -19 T: 98 INTERPRETIVE STATEMENTS: Sinus rhythm with occasional premature ventricular complexes Minimal voltage criteria for LVH, may be normal variant Nonspecific T wave abnormality Prolonged QT Abnormal ECG Compared to ECG 02/05/2021 06:37:34 T-wave abnormality now present Prolonged QT interval now present Early repolarization no longer present Electronically Signed On 02-06-21 11:20:33 BRAND MARKETING SPECIALIST by Jose Haynes
--- NOTE | 2021-02-06 11:23 | EKG ---
Test Date: 2021-02-05 Test Time: 06:37:34 Piece Work Checker: JONAH MEASUREMENT RESULTS: Intervals: Rate: 97 [place]: 182 QRSD: 94 QT: 348 QTc: 441 [place]: P: 69 [place]: 182 QRS: -28 T: 92 INTERPRETIVE STATEMENTS: Sinus rhythm with frequent premature ventricular complexes in a pattern of bigeminy Left ventricular hypertrophy with repolarization abnormality Abnormal ECG Compared to ECG 03/08/2020 15:45:44 Ventricular premature complex(es) now present Early repolarization now present Atrial premature complex(es) no longer present Aberrant conduction of supraventricular beat(s) no longer present Electronically Signed On 02-06-21 11:20:36 MARQUETRY WORKER by Jose Haynes
--- OUTSIDE RECORDS SUMMARY | 2021-02-09 17:53 | XMS REPORT | Continuity of Care Document ---
:1950 Author Organization [facility] t Address [address] [place] [address] Care Team Providers Name Role Phone Kelsey Primary Care Physician COLLEEN AGUILAR Attending Clinician Unavailable CARMEN Attending Clinician Unavailable Faisal WESTON Attending Clinician Gramm DIRECTOR OF BROADCAST, A Attending Clinician Rm, Surg Spec Procedure Attending Clinician Unavailable FAISAL Attending Clinician Unavailable Pob, Lab Main Attending Clinician Unavailable Doctor Unassigned, Name Attending Clinician Unavailable Rosalie WESTON, PhD Attending Clinician 2, Lab Attending Clinician Unavailable Sandi WESTON, M. Attending Clinician Lillian POSADAS Attending Clinician Unavailable WOO LAUREANO Attending Clinician Unavailable PORSHA Attending Clinician Unavailable CLOLEEN AGUILAR Admitting Clinician Unavailable CARMEN Admitting Clinician Unavailable LIZZY SEVERINO Admitting Clinician Unavailable Lillian POSADAS Admitting Clinician Unavailable WOO LAUREANO Admitting Clinician Unavailable PORSHA Admitting Clinician Unavailable Payers Payer Name Policy Type Policy Number Effective Date Expiration Date S marco [employer] MEDICARE HMO [id number] 2017 2019 POS 00:00:00 00:00:00 [facility] SECURE [id number] 2019 2019 HORIZONS 00:00:00 00:00:00 CARE IMPROVEMENT [id number] 2019 PLUS 00:00:00 Problems Condition Condition Condition Status Onset Resolution Last Treating Co mments Source Name Details Category Date Date Treatment Clinician Date Obstructiv Obstructiv Disease Active [facility] e sleep e sleep 07-04 [facility] apnea apnea 00:00: of syndrome syndrome 00 Medici n e Chronic Chronic Disease Active 2017-03 [facility] diastolic diastolic 2-21 [facility] heart heart 00:00: of failure failure 00 Medicin (HCCode) (HCCode) e 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 1-15 [facility] HTN HTN 00:00: of 00 Medicin e HLD HLD Disease Active 2017-03 [facility] (hyperlipi (hyperlipi 1-15 Co llege demia) demia) 00:00: of 00 Medicin e History of History of Disease Active [facility] 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 00:00: of valve valve 00 Medicin replacemen replacemen e t t Bilateral Bilateral Disease Active [facility] headaches headaches 7-18 Devi ege 00:00: of 00 Medicin e 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 03-30 Colleg e with with 00:00: of impairment impairment 00 Me dicin of of e consciousn consciousn ess, ess, intractabl intractabl e (HCCode) e (HCCode) No known No known Disease Unive rs active active ity of problems problems [place] [facility] Allergies, Adverse Reactions, Alerts Allergy Allergy Status Severity Reaction(s) Onset Inactive Treating Comm ents Source Name Type Date Date Clinician Levetira Propensi Active Unknown - Uni vers cetam ty to See comments 06-18 ity of adverse 00:00: [place] reaction 00 Medical s Branch LEVETIRA DRUG Active High Unknown-Cmnt Un jacquelyn CETAM INGREDI 3-22 ity of 00:00: [place] 00 Medical Branch ASPIRIN Allergy Active Hives 2019-[address] [facility] LEVETIRA Allergy Active 2019-[address] [facility] [address] [facility] Levetira Propensi Active Moderate 2017-03 unknown [facility] cetam ty to 1-15 College adverse 00:00: of reaction 00 Medicin s to e drug LEVETIRA Allergy Active Med Other 2017-03 [facility] CETAM 04-13 00:00: 00 ASPIRIN Allergy Active 2017-03 [facility] 04-13 00:00: 00 NO KNOWN Drug Active [facility] ALLERGIE Class ity of [facility] Social History Social Habit Start Date Stop Date Quantity Comments Source Exposure to Not sure University of SARS-CoV-2 [facility] (event) Branch Alcohol intake 2020-07-04 2020-07-04 Ex-drinker [facility] Col lege of 00:00:00 00:00:00 (finding) Medicine Tobacco use and 2020-07-04 2020-07-04 Never used [facility] Co llege of exposure 00:00:00 00:00:00 Medicine Tobacco Comment 2009-11-07 2009-11-07 since 1992 [facility] Co llege of 00:00:00 00:00:00 Medicine Alcohol Comment 2009-11-07 2009-11-07 social [facility] Co llege of 00:00:00 00:00:00 Medicine Sex [birth year] [facility] Co llege of 00:00:00 00:00:00 Medicine Smoking Status Start Date Stop Date Source Unknown if ever smoked [facility] Former smoker 2020-07-04 00:00:00 2020-07-04 00:00:00 [facility] C olleelva of Medicine Medications Ordered Filled Start Stop Current Ordering Indication Dosage Frequency Signature Comments Components Source Medication Medication Date Date Medication? Clinician (SIG) Name Name gentamicin 2020- No [id number] 80mg U nivers injection 07-16 ity of 80 mg 20:15: 19:20 [place] 00 :00 Medical Branch gentamicin 2020- No [id number] 80mg 80 mg, Univers injection 07-16 Intramuscu ity of 80 mg 20:15: 19:20 lar, ONCE, [place] 00 :00 1 dose, Medical Mon Branch 07/16/20 at 1515, SOCRATES
Re ason for Anti-Infec tive: Surgical Prophylaxi s
Surgi mary Prophylaxi s: Genitourin karla
Dur ation of therapy: within 24 hours of surgery gentamicin 2020- No [id number] 80mg U nivers injection 07-16 ity of 80 mg 20:15: 19:20 [place] 00 :00 Medical Branch gentamicin 2020- No [id number] 80mg 80 mg, Univers injection 07-16 Intramuscu ity of 80 mg 20:15: 19:20 lar, ONCE, [place] 00 :00 1 dose, [facility] Branch 07/16/20 at 1515, SOCRATES
Re ason for Anti-Infec tive: Surgical Prophylaxi s
Surgi mary Prophylaxi s: Genitourin karla
Dur ation of therapy: within 24 hours of surgery warfarin Yes 3mg Take 3 mg [facility] (COUMADIN) 4-05 by mouth Colle ge 1 MG tablet 19:16: daily. of 46 Medicin e Cyanocobala Yes 3000mg Take 3,000 Arturo min (B-12) 4-05 mg by [facility] 3000 MCG 19:16: mouth of CAPS 46 daily. Medicin e Ascorbic Yes 1000mg Take 1,000 B aylor Acid 4-05 mg by [facility] (VITAMIN C) 19:16: mouth of 1000 MG 46 daily. Medicin TABS e Cholecalcif Yes 5000mg Take 5,000 [facility] murray (CVS 4-05 mg by [facility] D3) 125 MCG 19:16: mouth of (5000 UT) 46 daily. Medicin CAPS e lamotrigine Yes [id number] 200mg Take 1 Arturo (LAMICTAL) 4-05 Tablet by Devi ege 200 MG 00:00: mouth of tablet 00 every Medicin evening. e lamotrigine 2020- No [id number] TAKE 1 [facility] (LAMICTAL) 3-31 04-05 TABLET BY Col lege 200 MG 00:00: 00:00 MOUTH of tablet 00 :00 EVERY DAY Medicin AT NIGHT e warfarin 1 Yes warfarin 1 U nivers mg tablet 3-22 mg tablet ity o f 19:56: 2 mg on [place] 57 M,W,F and Medical 1 mg on Branch T,T, S and S loratadine 0 Yes 10mg Take 10 mg U nivers 10 mg 3-22 by mouth. ity of tablet 19:56: [address] warfarin 1 Yes warfarin 1 U nivers mg tablet 3-22 mg tablet ity o f 19:56: 2 mg on [place] 57 M,W,F and Medical 1 mg on Branch T,T, S and S loratadine 0 Yes 10mg Take 10 mg U nivers 10 mg 3-22 by mouth. ity of tablet 19:56: [address] warfarin 1 Yes warfarin 1 U nivers mg tablet 3-22 mg tablet ity o f 19:56: 2 mg on [place] 57 M,W,F and Medical 1 mg on Branch T,T, S and S loratadine 0 Yes 10mg Take 10 mg U nivers 10 mg 3-22 by mouth. ity of tablet 19:56: [address] warfarin 1 Yes warfarin 1 U nivers mg tablet 3-22 mg tablet ity o f 19:56: 2 mg on [place] 57 M,W,F and Medical 1 mg on Branch T,T, S and S loratadine 0 Yes 10mg Take 10 mg U nivers 10 mg 3-22 by mouth. ity of tablet 19:56: [address] warfarin 1 Yes warfarin 1 U nivers mg tablet 3-22 mg tablet ity o f 19:56: 2 mg on [place] 57 M,W,F and Medical 1 mg on Branch T,T, S and S loratadine 0 Yes 10mg Take 10 mg U nivers 10 mg 3-22 by mouth. ity of tablet 19:56: [address] warfarin 1 Yes warfarin 1 U nivers mg tablet 3-22 mg tablet ity o f 19:56: 2 mg on [place] 57 M,W,F and Medical 1 mg on Branch T,T, S and S loratadine 0 Yes 10mg Take 10 mg U nivers 10 mg 3-22 by mouth. ity of tablet 19:56: [address] warfarin 1 2021-0 Yes warfarin 1 U nivers mg tablet 3-22 mg tablet ity o f 19:56: 2 mg on [place] 57 M,W,F and Medical 1 mg on Branch T,T, S and S loratadine 0 Yes 10mg Take 10 mg U nivers 10 mg 3-22 by mouth. ity of tablet 19:56: [address] warfarin 1 Yes warfarin 1 U nivers mg tablet 3-22 mg tablet ity o f 19:56: 2 mg on [place] 57 M,W,F and Medical 1 mg on Branch T,T, S and S loratadine 0 Yes 10mg Take 10 mg U nivers 10 mg 3-22 by mouth. ity of tablet 19:56: [address] warfarin 1 Yes warfarin 1 U nivers mg tablet 3-22 mg tablet ity o f 19:56: 2 mg on [place] 57 M,W,F and Medical 1 mg on Branch T,T, S and S loratadine 0 Yes 10mg Take 10 mg U nivers 10 mg 3-22 by mouth. ity of tablet 19:56: [address] warfarin 1 Yes warfarin 1 U nivers mg tablet 3-22 mg tablet ity o f 19:56: 2 mg on [place] 57 M,W,F and Medical 1 mg on Branch T,T, S and S loratadine 0 Yes 10mg Take 10 mg U nivers 10 mg 3-22 by mouth. ity of tablet 19:56: [address] warfarin 1 Yes warfarin 1 U nivers mg tablet 3-22 mg tablet ity o f 19:56: 2 mg on [place] 57 M,W,F and Medical 1 mg on Branch T,T, S and S loratadine 0 Yes 10mg Take 10 mg U nivers 10 mg 3-22 by mouth. ity of tablet 19:56: [address] warfarin 1 Yes warfarin 1 U nivers mg tablet 3-22 mg tablet ity o f 19:56: 2 mg on [place] 57 M,W,F and Medical 1 mg on Branch T,T, S and S loratadine 0 Yes 10mg Take 10 mg U nivers 10 mg 3-22 by mouth. ity of tablet 19:56: [address] warfarin 1 Yes warfarin 1 U nivers mg tablet 3-22 mg tablet ity o f 19:56: 2 mg on [place] 57 M,W,F and Medical 1 mg on Branch T,T, S and S loratadine 0 Yes 10mg Take 10 mg U nivers 10 mg 3-22 by mouth. ity of tablet 19:56: [address] warfarin 1 Yes warfarin 1 U nivers mg tablet 3-22 mg tablet ity o f 19:56: 2 mg on [place] 57 M,W,F and Medical 1 mg on Branch T,T, S and S loratadine 0 Yes 10mg Take 10 mg U nivers 10 mg 3-22 by mouth. ity of tablet 19:56: [address] warfarin 1 Yes warfarin 1 U nivers mg tablet 3-22 mg tablet ity o f 19:56: 2 mg on [place] 57 M,W,F and Medical 1 mg on Branch T,T, S and S loratadine 0 Yes 10mg Take 10 mg U nivers 10 mg 3-22 by mouth. ity of tablet 19:56: [address] warfarin 1 Yes warfarin 1 U nivers mg tablet 3-22 mg tablet ity o f 19:56: 2 mg on [place] 57 M,W,F and Medical 1 mg on Branch T,T, S and S loratadine 0 Yes 10mg Take 10 mg U nivers 10 mg 3-22 by mouth. ity of tablet 19:56: [address] warfarin 2 Yes 2mg Take 2 mg Un jacquelyn mg tablet 3-22 by mouth. ity o f 19:56: [address] sildenafiL Yes Viagra 50 Un jacquelyn (VIAGRA) 50 3-22 mg tablet ity of mg tablet 19:56: Take 1 [place] [address] tablet Medical every day Branch by oral route. warfarin 2 Yes 2mg Take 2 mg Un jacquelyn mg tablet 3-22 by mouth. ity o f 19:56: [address] sildenafiL Yes Viagra 50 Un j[facility]elyn (VIAGRA) 50 3-22 mg tablet ity of mg tablet 19:56: Take 1 [place] [address] tablet Medical every day Branch by oral route. warfarin 2 Yes 2mg Take 2 mg Un jacquelyn mg tablet 3-22 by mouth. ity o f 19:56: [address] sildenafiL 2020-0 Yes Viagra 50 Un jac[facility]elyn (VIAGRA) 50 3-22 mg tablet ity of mg tablet 19:56: Take 1 [place] 56 tablet Medical every day Branch by oral route. warfarin 2 0 Yes 2mg Take 2 mg Un jacquelyn mg tablet 3-22 by mouth. ity o f 19:56: [address] sildenafiL 2020-0 Yes Viagra 50 Un j[facility] (VIAGRA) 50 3-22 mg tablet ity of mg tablet 19:56: Take 1 [place] 56 tablet Medical every day Branch by oral route. warfarin 2 Yes 2mg Take 2 mg Un jacquelyn mg tablet 3-22 by mouth. ity o f 19:56: [address] sildenafiL Yes Viagra 50 Un j[facility] (VIAGRA) 50 3-22 mg tablet ity of mg tablet 19:56: Take 1 [place] 56 tablet Medical every day Branch by oral route. warfarin 2 Yes 2mg Take 2 mg Un jacquelyn mg tablet 3-22 by mouth. ity o f 19:56: [address] sildenafiL 0 Yes Viagra 50 Un j[facility]elyn (VIAGRA) 50 3-22 mg tablet ity of mg tablet 19:56: Take 1 [place] 56 tablet Medical every day Branch by oral route. warfarin 2 Yes 2mg Take 2 mg Un jacquelyn mg tablet 3-22 by mouth. ity o f 19:56: [address] sildenafiL 2020-0 Yes Viagra 50 Un [facility] (VIAGRA) 50 3-22 mg tablet ity of mg tablet 19:56: Take 1 [place] 56 tablet Medical every day Branch by oral route. warfarin 2 0 Yes 2mg Take 2 mg Un jac[facility]elyn mg tablet 3-22 by mouth. ity o f 19:56: [address] sildenafiL 2020-0 Yes Viagra 50 Un j[facility] (VIAGRA) 50 3-22 mg tablet ity of mg tablet 19:56: Take 1 [place] 56 tablet Medical every day Branch by oral route. warfarin 2 2020-0 Yes 2mg Take 2 mg Un j[facility] mg tablet 3-22 by mouth. ity o f 19:56: [address] sildenafiL 2020-0 Yes Viagra 50 Un [facility] (VIAGRA) 50 3-22 mg tablet ity of mg tablet 19:56: Take 1 [place] 56 tablet Medical every day Branch by oral route. warfarin 2 2020-0 Yes 2mg Take 2 mg Un [facility] mg tablet 3-22 by mouth. ity o f 19:56: [address] sildenafiL 2020-0 Yes Viagra 50 Un [facility] (VIAGRA) 50 3-22 mg tablet ity of mg tablet 19:56: Take 1 [place] 56 tablet Medical every day Branch by oral route. warfarin 2 2020-0 Yes 2mg Take 2 mg Un [facility] mg tablet 3-22 by mouth. ity o f 19:56: [address] sildenafiL 2020-0 Yes Viagra 50 Un [facility] (VIAGRA) 50 3-22 mg tablet ity of mg tablet 19:56: Take 1 [place] 56 tablet Medical every day Branch by oral route. warfarin 2 2020-0 Yes 2mg Take 2 mg Un [facility] mg tablet 3-22 by mouth. ity o f 19:56: [address] sildenafiL 2020-0 Yes Viagra 50 Un [facility] (VIAGRA) 50 3-22 mg tablet ity of mg tablet 19:56: Take 1 [place] 56 tablet Medical every day Branch by oral route. warfarin 2 2020-0 Yes 2mg Take 2 mg Un [facility] mg tablet 3-22 by mouth. ity o f 19:56: [address] sildenafiL 2020-0 Yes Viagra 50 Un [facility] (VIAGRA) 50 3-22 mg tablet ity of mg tablet 19:56: Take 1 [place] 56 tablet Medical every day Branch by oral route. warfarin 2 2020-0 Yes 2mg Take 2 mg Un [facility] mg tablet 3-22 by mouth. ity o f 19:56: [address] sildenafiL 2020-0 Yes Viagra 50 Un [facility] (VIAGRA) 50 3-22 mg tablet ity of mg tablet 19:56: Take 1 [place] 56 tablet Medical every day Branch by oral route. sildenafiL 2020-0 Yes Viagra 50 Un [facility] (VIAGRA) 50 3-22 mg tablet ity of mg tablet 19:56: Take 1 [place] 56 tablet Medical every day Branch by oral route. warfarin 2 0 Yes 2mg Take 2 mg Un jac[facility]elyn mg tablet 3-22 by mouth. ity o f 19:56: [address] Branch sildenafiL 2020-0 Yes Viagra 50 Un j[facility]elyn (VIAGRA) 50 3-22 mg tablet ity of mg tablet 19:56: Take 1 [place] 56 tablet Medical every day Branch by oral route. warfarin 2 0 Yes 2mg Take 2 mg Un jacquelyn mg tablet 3-22 by mouth. ity o f 19:56: [address] Branch amoxicillin 2020-0 Yes amoxicilli Univers 500 mg 3-22 n 500 mg ity of capsule 19:56: capsule [place] 55 TAKE ONE Medical CAPSULE BY Branch MOUTH EVERY 8 HOURS FOR 7 DAYS amoxicillin 2020-0 Yes amoxicilli Univers 500 mg 3-22 n 500 mg ity of capsule 19:56: capsule [place] 55 TAKE ONE Medical CAPSULE BY Branch MOUTH EVERY 8 HOURS FOR 7 DAYS amoxicillin 0 Yes amoxicilli Univers 500 mg 3-22 n 500 mg ity of capsule 19:56: capsule [place] 55 TAKE ONE Medical CAPSULE BY Branch MOUTH EVERY 8 HOURS FOR 7 DAYS amoxicillin 2020-0 Yes amoxicilli Univers 500 mg 3-22 n 500 mg ity of capsule 19:56: capsule [place] 55 TAKE ONE Medical CAPSULE BY Branch MOUTH EVERY 8 HOURS FOR 7 DAYS amoxicillin 2020-0 Yes amoxicilli Univers 500 mg 3-22 n 500 mg ity of capsule 19:56: capsule [place] 55 TAKE ONE Medical CAPSULE BY Branch MOUTH EVERY 8 HOURS FOR 7 DAYS amoxicillin 2020-0 Yes amoxicilli Univers 500 mg 3-22 n 500 mg ity of capsule 19:56: capsule [place] 55 TAKE ONE Medical CAPSULE BY Branch MOUTH EVERY 8 HOURS FOR 7 DAYS amoxicillin 2020-0 Yes amoxicilli Univers 500 mg 3-22 n 500 mg ity of capsule 19:56: capsule [place] 55 TAKE ONE Medical CAPSULE BY Branch MOUTH EVERY 8 HOURS FOR 7 DAYS amoxicillin 2020-0 Yes amoxicilli Univers 500 mg 3-22 n 500 mg ity of capsule 19:56: capsule [place] 55 TAKE ONE Medical CAPSULE BY Branch MOUTH EVERY 8 HOURS FOR 7 DAYS amoxicillin 2020-0 Yes amoxicilli Univers 500 mg 3-22 n 500 mg ity of capsule 19:56: capsule [place] 55 TAKE ONE Medical CAPSULE BY Branch MOUTH EVERY 8 HOURS FOR 7 DAYS amoxicillin Yes amoxicilli Univers 500 mg 3-22 n 500 mg ity of capsule 19:56: capsule [place] 55 TAKE ONE Medical CAPSULE BY Branch MOUTH EVERY 8 HOURS FOR 7 DAYS amoxicillin Yes amoxicilli Univers 500 mg 3-22 n 500 mg ity of capsule 19:56: capsule [place] 55 TAKE ONE Medical CAPSULE BY Branch MOUTH EVERY 8 HOURS FOR 7 DAYS amoxicillin Yes amoxicilli Univers 500 mg 3-22 n 500 mg ity of capsule 19:56: capsule [place] 55 TAKE ONE Medical CAPSULE BY Branch MOUTH EVERY 8 HOURS FOR 7 DAYS amoxicillin Yes amoxicilli Univers 500 mg 3-22 n 500 mg ity of capsule 19:56: capsule [place] 55 TAKE ONE Medical CAPSULE BY Branch MOUTH EVERY 8 HOURS FOR 7 DAYS amoxicillin Yes amoxicilli Univers 500 mg 3-22 n 500 mg ity of capsule 19:56: capsule [place] 55 TAKE ONE Medical CAPSULE BY Branch MOUTH EVERY 8 HOURS FOR 7 DAYS amoxicillin Yes amoxicilli Univers 500 mg 3-22 n 500 mg ity of capsule 19:56: capsule [place] 55 TAKE ONE Medical CAPSULE BY Branch MOUTH EVERY 8 HOURS FOR 7 DAYS amoxicillin Yes amoxicilli Univers 500 mg 3-22 n 500 mg ity of capsule 19:56: capsule [place] 55 TAKE ONE Medical CAPSULE BY Branch MOUTH EVERY 8 HOURS FOR 7 DAYS warfarin 1 Yes warfarin 1 U nivers mg tablet 3-22 mg tablet ity o f 14:56: 2 mg on [place] 57 M,W,F and Medical 1 mg on Branch T,T, S and S loratadine Yes 10mg Take 10 mg U nivers 10 mg 3-22 by mouth. ity of tablet 14:56: [address] Branch sildenafiL Yes Viagra 50 Un j[facility] (VIAGRA) 50 3-22 mg tablet ity of mg tablet 14:56: Take 1 [place] 56 tablet Medical every day Branch by oral route. warfarin 2 Yes 2mg Take 2 mg Un jacquelyn mg tablet 3-22 by mouth. ity o f 14:56: [place] 56 Medical Branch amoxicillin 2021-0 Yes amoxicilli Univers 500 mg 3-22 n 500 mg ity of capsule 14:56: capsule [place] 55 TAKE ONE Medical CAPSULE BY Branch MOUTH EVERY 8 HOURS FOR 7 DAYS tamsulosin 2020-0 Yes Univers 0.4 mg 24 3-21 ity of hr capsule 00:00: [place] [facility] tamsulosin 2020-0 Yes Univers 0.4 mg 24 3-21 ity of hr capsule 00:00: [place] [facility] tamsulosin 2020-0 Yes Univers 0.4 mg 24 3-21 ity of hr capsule 00:00: [place] [facility] tamsulosin 2020-0 Yes Univers 0.4 mg 24 3-21 ity of hr capsule 00:00: [place] [facility] tamsulosin 2020-0 Yes Univers 0.4 mg 24 3-21 ity of hr capsule 00:00: [place] [facility] tamsulosin 2020-0 Yes Univers 0.4 mg 24 3-21 ity of hr capsule 00:00: [place] [facility] tamsulosin 2020-0 Yes Univers 0.4 mg 24 3-21 ity of hr capsule 00:00: [place] [facility] tamsulosin 2020-0 Yes Univers 0.4 mg 24 3-21 ity of hr capsule 00:00: [place] [facility] tamsulosin 2020-0 Yes Univers 0.4 mg 24 3-21 ity of hr capsule 00:00: [place] [facility] tamsulosin 2020-0 Yes Univers 0.4 mg 24 3-21 ity of hr capsule 00:00: [place] [facility] tamsulosin 2020-0 Yes Univers 0.4 mg 24 3-21 ity of hr capsule 00:00: [place] [facility] tamsulosin 2020-0 Yes Univers 0.4 mg 24 3-21 ity of hr capsule 00:00: [place] [facility] tamsulosin 2020-0 Yes Univers 0.4 mg 24 3-21 ity of hr capsule 00:00: [place] [facility] tamsulosin 2020-0 Yes Univers 0.4 mg 24 3-21 ity of hr capsule 00:00: [place] [facility] tamsulosin 2020-0 Yes Univers 0.4 mg 24 3-21 ity of hr capsule 00:00: [place] [facility] tamsulosin 2020-0 Yes Univers 0.4 mg 24 3-21 ity of hr capsule 00:00: 00 Medical Branch tamsulosin 1-0 Yes Univers 0.4 mg 24 3-21 ity of hr capsule 00:00: 00 Medical Branch finasteride 2020-0 Yes TAKE 1 Univ ers 5 mg tablet 3-09 ORAL ity of 00:00: TABLET 00 EVERY Medical EVENING Branch FOR ENLARGED PROSTATE lamoTRIgine 2020-0 Yes TAKE 1 Univ ers 200 mg 3-09 TABLET BY ity of tablet 00:00: MOUTH 00 EVERY DAY Medical AT NIGHT Branch finasteride 2020-0 Yes TAKE 1 Univ ers 5 mg tablet 3-09 ORAL ity of 00:00: TABLET EVERY Medical EVENING Branch FOR ENLARGED PROSTATE lamoTRIgine 2020-0 Yes TAKE 1 Univ ers 200 mg 3-09 TABLET BY ity of tablet 00:00: MOUTH EVERY DAY Medical AT NIGHT Branch finasteride 2020-0 Yes TAKE 1 Univ ers 5 mg tablet 3-09 ORAL ity of 00:00: TABLET EVERY Medical EVENING Branch FOR ENLARGED PROSTATE lamoTRIgine 2020-0 Yes TAKE 1 Univ ers 200 mg 3-09 TABLET BY ity of tablet 00:00: MOUTH EVERY DAY Medical AT NIGHT Branch finasteride 2020-0 Yes TAKE 1 Univ ers 5 mg tablet 3-09 ORAL ity of 00:00: TABLET 00 EVERY Medical EVENING Branch FOR ENLARGED PROSTATE lamoTRIgine 2020-0 Yes TAKE 1 Univ ers 200 mg 3-09 TABLET BY ity of tablet 00:00: MOUTH EVERY DAY Medical AT NIGHT Branch finasteride 2020-0 Yes TAKE 1 Univ ers 5 mg tablet 3-09 ORAL ity of 00:00: TABLET 00 EVERY Medical EVENING Branch FOR ENLARGED PROSTATE lamoTRIgine 2020-0 Yes TAKE 1 Univ ers 200 mg 3-09 TABLET BY ity of tablet 00:00: MOUTH EVERY DAY Medical AT NIGHT Branch finasteride 2020-0 Yes TAKE 1 Univ ers 5 mg tablet 3-09 ORAL ity of 00:00: TABLET EVERY Medical EVENING Branch FOR ENLARGED PROSTATE lamoTRIgine 2020-0 Yes TAKE 1 Univ ers 200 mg 3-09 TABLET BY ity of tablet 00:00: MOUTH EVERY DAY Medical AT NIGHT Branch finasteride 2020-0 Yes TAKE 1 Univ ers 5 mg tablet 3-09 ORAL ity of 00:00: TABLET [place] 00 EVERY Medical EVENING Branch FOR ENLARGED PROSTATE lamoTRIgine 2020-0 Yes TAKE 1 Univ ers 200 mg 3-09 TABLET BY ity of tablet 00:00: MOUTH [place] 00 EVERY DAY Medical AT NIGHT Branch finasteride 2020-0 Yes TAKE 1 Univ ers 5 mg tablet 3-09 ORAL ity of 00:00: TABLET [place] 00 EVERY Medical EVENING Branch FOR ENLARGED PROSTATE lamoTRIgine 2020-0 Yes TAKE 1 Univ ers 200 mg 3-09 TABLET BY ity of tablet 00:00: MOUTH [place] 00 EVERY DAY Medical AT NIGHT Branch finasteride 2020-0 Yes TAKE 1 Univ ers 5 mg tablet 3-09 ORAL ity of 00:00: TABLET [place] 00 EVERY Medical EVENING Branch FOR ENLARGED PROSTATE lamoTRIgine 2020-0 Yes TAKE 1 Univ ers 200 mg 3-09 TABLET BY ity of tablet 00:00: MOUTH [place] 00 EVERY DAY Medical AT NIGHT Branch finasteride 2020-0 Yes TAKE 1 Univ ers 5 mg tablet 3-09 ORAL ity of 00:00: TABLET [place] 00 EVERY Medical EVENING Branch FOR ENLARGED PROSTATE lamoTRIgine 2020-0 Yes TAKE 1 Univ ers 200 mg 3-09 TABLET BY ity of tablet 00:00: MOUTH [place] 00 EVERY DAY Medical AT NIGHT Branch finasteride 2020-0 Yes TAKE 1 Univ ers 5 mg tablet 3-09 ORAL ity of 00:00: TABLET [place] 00 EVERY Medical EVENING Branch FOR ENLARGED PROSTATE lamoTRIgine 2020-0 Yes TAKE 1 Univ ers 200 mg 3-09 TABLET BY ity of tablet 00:00: MOUTH [place] 00 EVERY DAY Medical AT NIGHT Branch finasteride 2020-0 Yes TAKE 1 Univ ers 5 mg tablet 3-09 ORAL ity of 00:00: TABLET [place] 00 EVERY Medical EVENING Branch FOR ENLARGED PROSTATE lamoTRIgine 2020-0 Yes TAKE 1 Univ ers 200 mg 3-09 TABLET BY ity of tablet 00:00: MOUTH [place] 00 EVERY DAY Medical AT NIGHT Branch finasteride 2020-0 Yes TAKE 1 Univ ers 5 mg tablet 3-09 ORAL ity of 00:00: TABLET 00 EVERY Medical EVENING Branch FOR ENLARGED PROSTATE lamoTRIgine 2020-0 Yes TAKE 1 Univ ers 200 mg 3-09 TABLET BY ity of tablet 00:00: MOUTH [place] 00 EVERY DAY Medical AT NIGHT Branch finasteride 2020-0 Yes TAKE 1 Univ ers 5 mg tablet 3-09 ORAL ity of 00:00: TABLET EVERY Medical EVENING Branch FOR ENLARGED PROSTATE lamoTRIgine 0 Yes TAKE 1 Univ ers 200 mg 3-09 TABLET BY ity of tablet 00:00: MOUTH EVERY DAY Medical AT NIGHT Branch finasteride 2020-0 Yes TAKE 1 Univ ers 5 mg tablet 3-09 ORAL ity of 00:00: TABLET EVERY Medical EVENING Branch FOR ENLARGED PROSTATE lamoTRIgine 0 Yes TAKE 1 Univ ers 200 mg 3-09 TABLET BY ity of tablet 00:00: MOUTH EVERY DAY Medical AT NIGHT Branch lamoTRIgine 2020-0 Yes TAKE 1 Univ ers 200 mg 3-09 TABLET BY ity of tablet 00:00: MOUTH EVERY DAY Medical AT NIGHT Branch finasteride 2020-0 Yes TAKE 1 Univ ers 5 mg tablet 3-09 ORAL ity of 00:00: TABLET EVERY Medical EVENING Branch FOR ENLARGED PROSTATE lamoTRIgine 0 Yes TAKE 1 Univ ers 200 mg 3-09 TABLET BY ity of tablet 00:00: MOUTH EVERY DAY Medical AT NIGHT Branch finasteride 0 Yes TAKE 1 Univ ers 5 mg tablet 3-09 ORAL ity of 00:00: TABLET EVERY Medical EVENING Branch FOR ENLARGED PROSTATE atorvastati 0 Yes 40mg Take 40 mg Univers n 40 mg 3-01 by mouth ity of tablet 00:00: daily. Medical Branch atorvastati 0 Yes 40mg Take 40 mg [facility] n 40 mg 3-01 by mouth ity of tablet 00:00: daily. Medical Branch atorvastati 0 Yes 40mg Take 40 mg [facility] n 40 mg 3-01 by mouth ity of tablet 00:00: daily. Medical Branch atorvastati 2020-0 Yes 40mg Take 40 mg [facility] n 40 mg 3-01 by mouth ity of tablet 00:00: daily. Medical Branch atorvastati 0 Yes 40mg Take 40 mg Univers n 40 mg 3-01 by mouth ity of tablet 00:00: daily. Medical Branch atorvastati 0 Yes 40mg Take 40 mg Univers n 40 mg 3-01 by mouth ity of tablet 00:00: daily. [facility] Branch atorvastati 0 Yes 40mg Take 40 mg Univers n 40 mg 3-01 by mouth ity of tablet 00:00: daily. [facility] Branch atorvastati 0 Yes 40mg Take 40 mg Univers n 40 mg 3-01 by mouth ity of tablet 00:00: daily. [facility] Branch atorvastati 0 Yes 40mg Take 40 mg Univers n 40 mg 3-01 by mouth ity of tablet 00:00: daily. [facility] Branch atorvastati 0 Yes 40mg Take 40 mg Univers n 40 mg 3-01 by mouth ity of tablet 00:00: daily. [facility] Branch atorvastati 0 Yes 40mg Take 40 mg Univers n 40 mg 3-01 by mouth ity of tablet 00:00: daily. [facility] Branch atorvastati 0 Yes 40mg Take 40 mg Univers n 40 mg 3-01 by mouth ity of tablet 00:00: daily. [facility] Branch atorvastati 0 Yes 40mg Take 40 mg Univers n 40 mg 3-01 by mouth ity of tablet 00:00: daily. [facility] atorvastati 0 Yes 40mg Take 40 mg Univers n 40 mg 3-01 by mouth ity of tablet 00:00: daily. [facility] Branch atorvastati 0 Yes 40mg Take 40 mg Univers n 40 mg 3-01 by mouth ity of tablet 00:00: daily. [facility] Branch atorvastati 0 Yes 40mg Take 40 mg Univers n 40 mg 3-01 by mouth ity of tablet 00:00: daily. [facility] Branch atorvastati 0 Yes 40mg Take 40 mg Univers n 40 mg 3-01 by mouth ity of tablet 00:00: daily. [place] [facility] Branch gabapentin 2020-0 Yes 600mg Take 600 Un jacquelyn 600 mg 2-26 mg by ity of tablet 00:00: mouth 2 [place] (two) Medical times [place] daily. gabapentin 2020-0 Yes 600mg Take 600 Un jacquelyn 600 mg 2-26 mg by ity of tablet 00:00: mouth 2 [place] 00 (two) Medical times Branch daily. gabapentin 2021-0 Yes 600mg Take 600 Un jacquelyn 600 mg 2-26 mg by ity of tablet 00:00: mouth (two) Medical times Branch daily. gabapentin 2021-0 Yes 600mg Take 600 Un j[facility] 600 mg 2-26 mg by ity of tablet 00:00: mouth (two) Medical times Branch daily. gabapentin 2021-0 Yes 600mg Take 600 Un [facility] 600 mg 2-26 mg by ity of tablet 00:00: mouth (two) Medical times Branch daily. gabapentin 2021-0 Yes 600mg Take 600 Un [facility] 600 mg 2-26 mg by ity of tablet 00:00: mouth (two) Medical times Branch daily. gabapentin 2021-0 Yes 600mg Take 600 Un [facility] 600 mg 2-26 mg by ity of tablet 00:00: mouth (two) Medical times Branch daily. gabapentin 2021-0 Yes 600mg Take 600 Un [facility] 600 mg 2-26 mg by ity of tablet 00:00: mouth (two) Medical times Branch daily. gabapentin 2021-0 Yes 600mg Take 600 Un [place] 600 mg 2-26 mg by ity of tablet 00:00: mouth (two) Medical times Branch daily. gabapentin 2021-0 Yes 600mg Take 600 Un [facility] 600 mg 2-26 mg by ity of tablet 00:00: mouth (two) Medical times Branch daily. gabapentin 2021-0 Yes 600mg Take 600 Un [place] 600 mg 2-26 mg by ity of tablet 00:00: mouth (two) Medical times Branch daily. gabapentin 2021-0 Yes 600mg Take 600 Un [place] 600 mg 2-26 mg by ity of tablet 00:00: mouth (two) Medical times Branch daily. gabapentin 2021-0 Yes 600mg Take 600 Un [place] 600 mg 2-26 mg by ity of tablet 00:00: mouth (two) Medical times Branch daily. gabapentin 2021-0 Yes 600mg Take 600 Un [facility] 600 mg 2-26 mg by ity of tablet 00:00: mouth (two) Medical times Branch daily. gabapentin 2021-0 Yes 600mg Take 600 Un [facility] 600 mg 2-26 mg by ity of tablet 00:00: mouth 2 [place] 00 (two) Medical times Branch daily. gabapentin 2021-0 Yes 600mg Take 600 Un jacquelyn 600 mg 2-26 mg by ity of tablet 00:00: mouth 2 [place] 00 (two) Medical times Branch daily. gabapentin 2021-0 Yes 600mg Take 600 Un [facility] 600 mg 2-26 mg by ity of tablet 00:00: mouth 2 [place] 00 (two) Medical times Branch daily. levothyroxi 2020-0 Yes 100ug Take 100 [facility] ne 1-22 mcg by College (SYNTHROID) 00:00: mouth of 100 MCG 00 daily. Medicin tablet e levothyroxi 2020-0 Yes 100ug Take 100 U nivers ne 100 mcg 1-22 mcg by ity of tablet 00:00: mouth [place] 00 every Medical morning. Branch levothyroxi 2020-0 Yes 100ug Take 100 U nivers ne 100 mcg 1-22 mcg by ity of tablet 00:00: mouth [place] 00 every Medical morning. Branch levothyroxi 2020-0 Yes 100ug Take 100 U nivers ne 100 mcg 1-22 mcg by ity of tablet 00:00: mouth [place] 00 every Medical morning. Branch levothyroxi 2020-0 Yes 100ug Take 100 U nivers ne 100 mcg 1-22 mcg by ity of tablet 00:00: mouth [place] 00 every Medical morning. Branch levothyroxi 2020-0 Yes 100ug Take 100 U nivers ne 100 mcg 1-22 mcg by ity of tablet 00:00: mouth [place] 00 every Medical morning. Branch levothyroxi 2020-0 Yes 100ug Take 100 U nivers ne 100 mcg 1-22 mcg by ity of tablet 00:00: mouth [place] 00 every Medical morning. Branch levothyroxi 2020-0 Yes 100ug Take 100 U nivers ne 100 mcg 1-22 mcg by ity of tablet 00:00: mouth [place] 00 every Medical morning. Branch levothyroxi 2020-0 Yes 100ug Take 100 U nivers ne 100 mcg 1-22 mcg by ity of tablet 00:00: mouth [place] 00 every Medical morning. Branch levothyroxi 2020-0 Yes 100ug Take 100 U nivers ne 100 mcg 1-22 mcg by ity of tablet 00:00: mouth [place] 00 every Medical morning. Branch levothyroxi 2020-0 Yes 100ug Take 100 U nivers ne 100 mcg 1-22 mcg by ity of tablet 00:00: mouth [place] 00 every Medical morning. Branch levothyroxi 2020-0 Yes 100ug Take 100 U nivers ne 100 mcg 1-22 mcg by ity of tablet 00:00: mouth [place] 00 every Medical morning. Branch levothyroxi 2020-0 Yes 100ug Take 100 U nivers ne 100 mcg 1-22 mcg by ity of tablet 00:00: mouth [place] 00 every Medical morning. Branch levothyroxi 2020-0 Yes 100ug Take 100 U nivers ne 100 mcg 1-22 mcg by ity of tablet 00:00: mouth [place] 00 every Medical morning. Branch levothyroxi 2020-0 Yes 100ug Take 100 U nivers ne 100 mcg 1-22 mcg by ity of tablet 00:00: mouth [place] 00 every Medical morning. Branch levothyroxi 2020-0 Yes 100ug Take 100 U nivers ne 100 mcg 1-22 mcg by ity of tablet 00:00: mouth [place] 00 every Medical morning. Branch levothyroxi 2020-0 Yes 100ug Take 100 U nivers ne 100 mcg 1-22 mcg by ity of tablet 00:00: mouth [place] 00 every Medical morning. Branch levothyroxi 2020-0 Yes 100ug Take 100 U nivers ne 100 mcg 1-22 mcg by ity of tablet 00:00: mouth [place] 00 every Medical morning. Branch valsartan 2019- Yes 80mg Take 80 mg [facility] (DIOVAN) 80 2-31 by mouth. Col lege MG tablet 00:00: Medicin e valsartan 2019-03 Yes 80mg Take 80 mg Un jacquelyn 80 mg 2-31 by mouth ity of tablet 00:00: daily. Medical Branch valsartan 2019- Yes 80mg Take 80 mg Un [facility] 80 mg 2-31 by mouth ity of tablet 00:00: daily. Medical Branch valsartan 2019-03 Yes 80mg Take 80 mg Un [place] 80 mg 2-31 by mouth ity of tablet 00:00: daily. Medical Branch valsartan 2019-03 Yes 80mg Take 80 mg Un [facility] 80 mg 2-31 by mouth ity of tablet 00:00: daily. [facility] Branch valsartan 2019- Yes 80mg Take 80 mg Un j[place] 80 mg 2-31 by mouth ity of tablet 00:00: daily. [facility] Branch valsartan 2019-03 Yes 80mg Take 80 mg Un [place] 80 mg 2-31 by mouth ity of tablet 00:00: daily. [facility] valsartan 2019-03 Yes 80mg Take 80 mg Un jacquelyn 80 mg 2-31 by mouth ity of tablet 00:00: daily. [facility] Branch valsartan 2019-03 Yes 80mg Take 80 mg Un [place] 80 mg 2-31 by mouth ity of tablet 00:00: daily. [facility] valsartan 2019-03 Yes 80mg Take 80 mg Un [place] 80 mg 2-31 by mouth ity of tablet 00:00: daily. [facility] valsartan 2019-03 Yes 80mg Take 80 mg Un [facility] 80 mg 2-31 by mouth ity of tablet 00:00: daily. [facility] valsartan 2019-03 Yes 80mg Take 80 mg Un [place] 80 mg 2-31 by mouth ity of tablet 00:00: daily. [place] [facility] valsartan 2019-03 Yes 80mg Take 80 mg Un j[place]elyn 80 mg 2-31 by mouth ity of tablet 00:00: daily. [place] [facility] valsartan 2019-03 Yes 80mg Take 80 mg Un [facility] 80 mg 2-31 by mouth ity of tablet 00:00: daily. [facility] valsartan 2019- Yes 80mg Take 80 mg Un [facility] 80 mg 2-31 by mouth ity of tablet 00:00: daily. [facility] valsartan 2019-03 Yes 80mg Take 80 mg Un [place] 80 mg 2-31 by mouth ity of tablet 00:00: daily. [facility] valsartan 2019-03 Yes 80mg Take 80 mg Un [place] 80 mg 2-31 by mouth ity of tablet 00:00: daily. [facility] valsartan 2019- Yes 80mg Take 80 mg Un [place] 80 mg 2-31 by mouth ity of tablet 00:00: daily. [place] [facility] lamotrigine 2020- Yes [id number] TAKE 1/2 [facility] (LAMICTAL) 2-16 TABLET BY Devi ege 100 MG 00:00: MOUTH of tablet 00 EVERY DAY Medicin e lamoTRIgine 2019-03 Yes TAKE 1/2 Un [facility] 100 mg 2-16 TABLET BY ity of tablet 00:00: MOUTH EVERY DAY Medical Branch lamoTRIgine 2020- Yes TAKE 1/2 Un [place] 100 mg 2-16 TABLET BY ity of tablet 00:00: MOUTH EVERY DAY Medical Branch lamoTRIgine 2019- Yes TAKE 1/2 Un [place] 100 mg 2-16 TABLET BY ity of tablet 00:00: MOUTH EVERY DAY Medical Branch lamoTRIgine 2019- Yes TAKE 1/2 Un [place] 100 mg 2-16 TABLET BY ity of tablet 00:00: MOUTH EVERY DAY Medical Branch lamoTRIgine 2019- Yes TAKE 1/2 Un [facility] 100 mg 2-16 TABLET BY ity of tablet 00:00: MOUTH EVERY DAY Medical Branch lamoTRIgine 2019- Yes TAKE 1/2 Un [facility] 100 mg 2-16 TABLET BY ity of tablet 00:00: MOUTH EVERY DAY Medical Branch lamoTRIgine 2019- Yes TAKE 1/2 Un [place] 100 mg 2-16 TABLET BY ity of tablet 00:00: MOUTH 00 EVERY DAY Medical Branch lamoTRIgine 2019- Yes TAKE 1/2 Un [place] 100 mg 2-16 TABLET BY ity of tablet 00:00: MOUTH EVERY DAY Medical Branch lamoTRIgine 2020- Yes TAKE 1/2 Un [place] 100 mg 2-16 TABLET BY ity of tablet 00:00: MOUTH 00 EVERY DAY Medical Branch lamoTRIgine 2020- Yes TAKE 1/2 Un [place] 100 mg 2-16 TABLET BY ity of tablet 00:00: MOUTH EVERY DAY Medical Branch lamoTRIgine 2020- Yes TAKE 1/2 Un [place] 100 mg 2-16 TABLET BY ity of tablet 00:00: MOUTH 00 EVERY DAY Medical Branch lamoTRIgine 2020- Yes TAKE 1/2 Un [place] 100 mg 2-16 TABLET BY ity of tablet 00:00: MOUTH EVERY DAY Medical Branch lamoTRIgine 2020- Yes TAKE 1/2 Un [place] 100 mg 2-16 TABLET BY ity of tablet 00:00: MOUTH [place] 00 EVERY DAY Medical Branch lamoTRIgine 2020-1 Yes TAKE 1/2 Un [facility] 100 mg 2-16 TABLET BY ity of tablet 00:00: MOUTH [place] EVERY DAY Medical Branch lamoTRIgine 2020-1 Yes TAKE 1/2 Un [place] 100 mg 2-16 TABLET BY ity of tablet 00:00: MOUTH [place] EVERY DAY Medical Branch lamoTRIgine 2020-1 Yes TAKE 1/2 Un [facility] 100 mg 2-16 TABLET BY ity of tablet 00:00: MOUTH [place] EVERY DAY Medical Branch lamoTRIgine 2020- Yes TAKE 1/2 Un [facility] 100 mg 2-16 TABLET BY ity of tablet 00:00: MOUTH [place] EVERY DAY Medical Branch Lacosamide 2020-1 Yes [id number] 200mg Take 200 [facility] 200 MG TABS 1-16 mg by [facility] 00:00: mouth two of 00 times Medicin daily. e Lacosamide 2020-1 Yes [id number] 50mg Take 50 mg [facility] 50 MG TABS 1-16 by mouth Colle ge 00:00: two times of 00 daily. Medicin e lamotrigine 2020-0 Yes [id number] TAKE 1 [facility] (LAMICTAL) 9-[address] [facility] ege 150 MG 00:00: MOUTH of tablet 00 EVERY DAY Medicin e warfarin 2020-0 Yes 3mg Take 3 mg [facility] (COUMADIN) 6-25 by mouth Colle ge 1 MG tablet 15:29: daily. of 18 Medicin e Cyanocobala 2020-0 Yes 3000mg Take 3,000 [facility] min (B-12) 6-25 mg by [facility] 3000 MCG 15:29: mouth of CAPS 18 daily. Medicin e Ascorbic 2020-0 Yes 1000mg Take 1,000 [facility] Acid 6-25 mg by [facility] (VITAMIN C) 15:29: mouth of 1000 MG 18 daily. Medicin TABS e Cholecalcif 2020-0 Yes 5000mg Take 5,000 [facility] murray ([facility] 6-25 mg by [facility] D3) 125 MCG 15:29: mouth of (5000 UT) 18 daily. Medicin CAPS e Lacosamide 2020-0 Yes [id number] 200mg Take 200 [facility] 200 MG TABS 6-23 mg by College 00:00: mouth two of 00 times Medicin daily. e Lacosamide 2020-0 Yes [id number] 50mg Take 50 mg [facility] 50 MG TABS 6-23 by mouth Colle ge 00:00: two times of 00 daily. Medicin e lamotrigine 2020-0 Yes [id number] TAKE 1 [facility] (LAMICTAL) 6-23 TABLET BY Devi ege 150 MG 00:00: MOUTH of tablet 00 EVERY DAY Medicin e lamotrigine 2020-0 Yes [id number] 200mg Take 1 Tab [facility] (LAMICTAL) 6-23 by mouth Colle ge 200 MG 00:00: nightly. of tablet 00 Medicin e gabapentin 2020-0 Yes 600{tbl Take 600 [facility] (NEURONTIN) 6-14 } Tabs by Colle ge 600 MG 00:00: mouth of tablet 00 daily. Pt Medicin stated he e ocassionly just take half a tablet but the dosage varies gabapentin 2020-0 Yes 600{tbl Take 600 [facility] (NEURONTIN) 6-14 } Tabs by Colle ge 600 MG 00:00: mouth of tablet 00 daily. Pt Medicin stated he e ocassionly just take half a tablet but the dosage varies meloxicam 2019-0 Yes 7mg 7 mg. [facility] (MOBIC) 7.5 5-22 College MG tablet 00:00: of Medicin e meloxicam 2019-0 Yes 7mg 7 mg. [facility] (MOBIC) 7.5 5-22 College MG tablet 00:00: of 00 Medicin e pantoprazol 2019-0 Yes [id number] 40mg Take 1 Tab [facility] e 4-18 by mouth College (PROTONIX) 00:00: daily. of 40 MG 00 Medicin tablet e pantoprazol 2019-0 Yes [id number] 40mg Take 1 Tab [facility] e 4-18 by mouth College (PROTONIX) 00:00: daily. of 40 MG 00 Medicin tablet e atorvastati 2017-03 Yes 40mg Take 40 mg Arturo n (LIPITOR) 1-20 by mouth Devi ege 40 MG 00:00: daily. of tablet 00 Medicin e atorvastati 2017-03 Yes 40mg Take 40 mg [facility] n (LIPITOR) 1-20 by mouth Devi ege 40 MG 00:00: daily. of tablet 00 Medicin e loratadine Yes 10mg Take 10 mg [facility] (CLARITIN) 6-15 by mouth Colle ge 10 MG 00:00: every of tablet Thursday, Medicin Thursday, thursday. loratadine 2017 Yes 10mg Take 10 mg [facility] (CLARITIN) 6-15 by mouth Colle ge 10 MG 00:00: every of tablet Thursday, Medicin Thursday, thursday. Gabapentin Gabapentin Yes [place] TAKE [address] [facility] TABLET BY [facility] Loratadine Loratadine Yes David TAKE [address] [facility] TABLET BY [facility] EVERY DAY l [facility] Clinics Atorvastati Atorvastati Yes David TAKE [address] [facility] n Calcium n Calcium [place] TABLET BY [facility] EVERY DAY l [facility] ent Clinics Lamotrigine Lamotrigine Yes David TAKE [address] [facility] TABLET BY [facility] EVERY DAY l [facility] Valsartan Valsartan Yes David TAKE [address] [facility] TABLET BY [facility]TH [facility] EVERY DAY l [facility] ent Clinics Furosemide Furosemide Yes David TAKE [address] [facility] TABLET BY [facility]TH [facility] EVERY DAY l [facility] ent Clinics Levothyroxi Levothyroxi Yes David TAKE [address] [facility] [facility] ne Sodium ne Sodium [place] TABLET BY [facility]TH [facility] EVERY DAY l [facility] ent Clinics Pantoprazol Pantoprazol Yes David TAKE [address] [facility] e Sodium e Sodium [place] TABLET BY [facility] - MOUTH [facility] EVERY DAY l IN THE [facility] Tramadol Tramadol Yes David (Schedule [facility] HCl HCl [facility] IV Drug) [facility] - TAKE 1 [facility] TABLET BY l MOUTH [facility] A Clinics DAY NEEDED Warfarin Warfarin Yes David TAKE [address] Sodium Sodium [place] TABLET BY [facility] - ORAL ROUTE [facility] EVERY DAY l [facility] Diclofenac Diclofenac Yes David APPLY [address] [facility] Sodium Sodium [place] GRAMS TO [facility] - AFFECTED [facility] AREA TWICE l A DAY [facility] ent Clinics Hydrocodone Hydrocodone Yes David (Schedule [facility] -Acetaminop -Acetaminop [facility] II Drug) [facility] - hen hen TAKE 1 [facility] TABLET BY l MOUTH [facility] DAY Clinics Immunizations Ordered Immunization Filled Immunization Date Status Commen ts Source Name Name Influenza Hd 2017-12-11 Completed [facility] 00:00:00 of Medicine Influenza Hd 2017-12-11 Completed [facility] 00:00:00 of Medicine Pneumococcal 2017-11-30 Completed [facility] Colle ge 13-valent Conjugate 00:00:00 of Me dicine Vaccine Pneumococcal 2017-11-30 Completed [facility] Colle ge Polysaccharide 00:00:00 of Medicin e Pneumococcal 2017-11-30 Completed [facility] Colle ge 13-valent Conjugate 00:00:00 of Me dicine Vaccine Pneumococcal 2017-11-30 Completed [facility] Colle ge Polysaccharide 00:00:00 of Medicin e Pneumococcal 2017-07-22 Completed [facility] Colle ge 13-valent Conjugate 00:00:00 of Me dicine Vaccine Pneumococcal 2017-07-22 Completed [facility] Colle ge 13-valent Conjugate 00:00:00 of Me dicine Vaccine Influenza (whole) 2015-08-16 Completed [facility] 00:00:00 of Medicine Influenza (whole) 2015-08-16 Completed [facility] 00:00:00 of Medicine Influenza (whole) 2014-12-14 Completed [facility] 00:00:00 of Medicine Influenza (whole) 2014-12-14 Completed [facility] 00:00:00 of Medicine Vital Signs Vital Name Observation Time Observation Value Comments Source HEIGHT 2020-03-06 11:00:00 182.9 cm WEIGHT 2020-03-06 11:00:00 90.311 kg HEIGHT 2020-03-05 12:27:00 182.9 cm WEIGHT 2020-03-05 12:27:00 89.812 kg HEIGHT 2020-02-14 10:56:00 182.9 cm WEIGHT 2020-02-14 10:56:00 89.903 kg HEIGHT 2020-02-13 15:00:00 182.9 cm WEIGHT 2020-02-13 15:00:00 89.359 kg HEIGHT 2020-01-20 11:58:00 182.9 cm WEIGHT 2020-01-20 11:58:00 89.767 kg HEIGHT 2020-01-18 15:52:00 182.9 cm WEIGHT 2020-01-18 15:52:00 83.915 kg WEIGHT 2020-03-09 07:00:00 87.998 kg HEIGHT 2020-03-08 23:00:00 182.9 cm Systolic blood 2020-07-16 18:41:00 138 mm[Hg] Univer sity of pressure [place] [facility] Diastolic blood 2020-07-16 18:41:00 82 mm[Hg] Unive rsity of pressure [place] [facility] Heart rate 2020-07-16 18:41:00 67 /min [facility] [place] [facility] Body temperature 2020-07-16 18:41:00 36.33 Josi Univ ersity of [place] [facility] Respiratory rate 2020-07-16 18:41:00 18 /min Univ ers[facility] [place] [facility] Body height 2020-07-16 18:41:00 182.9 cm [facility] [place] [facility] Body weight 2020-07-16 18:41:00 96.888 kg [facility] [place] [facility] BMI 2020-07-16 18:41:00 28.97 kg/m2 Universi ty of [facility] Branch Systolic blood 2020-07-02 19:08:00 142 mm[Hg] [facility] pressure Medicine Diastolic blood 2020-07-02 19:08:00 77 mm[Hg] [facility] Medicine Heart rate 2020-07-02 19:08:00 65 /min [facility] of Medicine Body height 2020-07-02 19:08:00 182.9 cm [facility] Medicine Body weight 2020-07-02 19:08:00 96.163 kg [facility] Medicine BMI 2020-07-02 19:08:00 28.75 kg/m2 [facility] of Medicine Systolic blood 2020-06-18 19:51:00 134 mm[Hg] Univer sity of pressure [place] [facility] Diastolic blood 2020-06-18 19:51:00 76 mm[Hg] Unive rsity of pressure [place] [facility] Heart rate 2020-06-18 19:51:00 87 /min [facility] [place] [facility] Body temperature 2020-06-18 19:51:00 36.94 Josi [facility] [place] [facility] Respiratory rate 2020-06-18 19:51:00 18 /min [facility] [place] [facility] Body height 2020-06-18 19:51:00 182.9 cm [facility] [place] [facility] Body weight 2020-06-18 19:51:00 97.886 kg [facility] BMI 2020-06-18 19:51:00 29.27 kg/m2 [facility] WEIGHT 2020-03-09 07:00:00 87.998 kg HEIGHT 2020-03-08 23:00:00 182.9 cm HEIGHT 2020-03-06 11:00:00 182.9 cm WEIGHT 2020-03-06 11:00:00 90.311 kg HEIGHT 2020-03-05 12:27:00 182.9 cm WEIGHT 2020-03-05 12:27:00 89.812 kg HEIGHT 2020-02-14 10:56:00 182.9 cm WEIGHT 2020-02-14 10:56:00 89.903 kg HEIGHT 2020-02-13 15:00:00 182.9 cm WEIGHT 2020-02-13 15:00:00 89.359 kg HEIGHT 2020-01-20 11:58:00 182.9 cm WEIGHT 2020-01-20 11:58:00 89.767 kg HEIGHT 2020-01-18 15:52:00 182.9 cm WEIGHT 2020-01-18 15:52:00 83.915 kg Body height 2019-09-22 15:26:00 180.3 cm [facility] Body height 2019-09-22 15:26:00 180.3 cm [facility] Procedures Procedure Date / Time Performed Performing Clinician [facility] POCT URINALYSIS AUTO 2020-07-16 18:42:00 Ned Daigle [facility] ASSIGNMENT OF BENEFITS 2020-07-09 20:25:08 Doctor Unassigned, No [facility] POCT URINALYSIS AUTO 2020-06-18 20:03:00 Ned Daigle [facility] Plan of Care Planned Planned Date Details Comments Source Activity Future 2021-07-16 Depression screening Univers ity of Scheduled Test 00:00:00 (procedure) [code = [facility] [id number]] Branch Future 2021-07-16 Depression screening Univers ity of Scheduled Test 00:00:00 (procedure) [code = [facility] [id number]] Branch Future 2020-11-28 INFLUENZA VACCINE University of Scheduled Test 00:00:00 (Season Ended) [code = [place] [facility] INFLUENZA VACCINE Branch (Season Ended)] Future 2020-11-28 INFLUENZA VACCINE University of Scheduled Test 00:00:00 (Season Ended) [code = [place] [facility] INFLUENZA VACCINE Branch (Season Ended)] Future 2017 Medicare Annual Wellness Uni versity of Scheduled Test 00:00:00 Visit (procedure) [code [facility] = [id number]] Branch Future 2017 PNEUMOCOCCAL VACCINES Univer sity of Scheduled Test 00:00:00 65+ (1 [place] 1 [place] PPSV23[place] [facility] [code = PNEUMOCOCCAL Branch VACCINES 65+ (1 of 1 - PPSV23)] Future 2017 Medicare Annual Wellness Uni versity of Scheduled Test 00:00:00 Visit (procedure) [code [facility] = [id number]] Branch Future 2017 PNEUMOCOCCAL VACCINES Univer sity of Scheduled Test 00:00:00 65+ (1 of 1 - PPSV23[place] [facility] [code = PNEUMOCOCCAL Branch VACCINES 65+ (1 of 1 - PPSV23)] Future 2002 Flexible fiberoptic Universi ty of Scheduled Test 00:00:00 sigmoidoscopy [place] [facility] (procedure) [code = Branch [id number]] Future 2002 Screening for malignant Univ ersity of Scheduled Test 00:00:00 neoplasm of colon [place] Me dical (procedure) [code = Branch [id number]] Future 2002 Screening for malignant Univ ersity of Scheduled Test 00:00:00 neoplasm of colon [place] Me dical (procedure) [code = Branch [id number]] Future 2002 Zoster Recombinant Universit y of Scheduled Test 00:00:00 Vaccine (SHINGRIX) (1 of [facility] 2) [code = Zoster Branch Recombinant Vaccine (SHINGRIX) (1 of 2)] Future 2002 Screening for occult Univers ity of Scheduled Test 00:00:00 blood in feces [place] [facility] (procedure) [code = Branch [id number]] Future 2002 Stool DNA-based University o f Scheduled Test 00:00:00 colorectal cancer [place] Me dical screening (procedure) Branch [code = [id number]] Future 2002 Flexible fiberoptic Universi ty of Scheduled Test 00:00:00 sigmoidoscopy [place] [facility] (procedure) [code = Branch [id number]] Future 2002 Screening for malignant Univ ersity of Scheduled Test 00:00:00 neoplasm of colon [place] Me dical (procedure) [code = Branch [id number]] Future 2002 Screening for malignant Univ ersity of Scheduled Test 00:00:00 neoplasm of colon [place] Me dical (procedure) [code = Branch [id number]] Future 2002 Zoster Recombinant Universit y of Scheduled Test 00:00:00 Vaccine (SHINGRIX) (1 of [place] [facility] 2) [code = Zoster Branch Recombinant Vaccine (SHINGRIX) (1 of 2)] Future 2002 Screening for occult Univers ity of Scheduled Test 00:00:00 blood in feces [place] [facility] (procedure) [code = Branch 835282043] Future 2002 Stool DNA-based University o f Scheduled Test 00:00:00 colorectal cancer [facility] dical screening (procedure) Branch [code = [id number]] Future 1971-06-09 DTaP,Tdap,and Td University of Scheduled Test 00:00:00 Vaccines (1 - Tdap) [facility] [code = DTaP,Tdap,and Td Bra nch Vaccines (1 - Tdap)] Future 1971-06-09 DTaP,Tdap,and Td University of Scheduled Test 00:00:00 Vaccines (1 - Tdap) [facility] [code = DTaP,Tdap,and Td Bra nch Vaccines (1 - Tdap)] Future 1970 Hepatitis C screening Univer sity of Scheduled Test 00:00:00 (procedure) [code = [facility] [id number]] Branch Future 1970 Hepatitis C screening Univer sity of Scheduled Test 00:00:00 (procedure) [code = [facility] 067584029] Branch Future 1968 SARS-CoV-2 (COVID-19) Univer sity of Scheduled Test 00:00:00 Vaccine (1) [code = [facility] SARS-CoV-2 (COVID-19) Branch Vaccine (1)] Future 1968 SARS-CoV-2 (COVID-19) Univer sity of Scheduled Test 00:00:00 Vaccine (1) [code = [facility] SARS-CoV-2 (COVID-19) Branch Vaccine (1)] Future COLON CANCER SCREENING: [facility] Scheduled Test COLONOSCOPY [code = of Med icine COLON CANCER SCREENING: COLONOSCOPY] Future TETANUS SHOT (ADULT) [facility] Scheduled Test [code = TETANUS SHOT of Me dicine (ADULT)] Future BMI FOLLOW UP PLAN [code [facility] Scheduled Test = BMI FOLLOW UP PLAN] of [facility] Future HEPATITIS C SCREENING [facility] Scheduled Test [code = HEPATITIS C of Med icine SCREENING] Future AAA Screen [code = AAA [facility] Scheduled Test Screen] of Medicine Future FALL SCREEN [code = FALL [facility] Scheduled Test SCREEN] of Medicine Future MEDICARE IPPE (WELCOME [facility] Scheduled Test TO MEDICARE) [code = of Me dicine MEDICARE IPPE (WELCOME TO MEDICARE)] Future FLU VACCINE > 6 MONTHS [facility] Scheduled Test [code = FLU VACCINE > 6 of Medicine MONTHS] Future NEUROPSYCHOLOGICAL Ordered: [facility]lege Scheduled Test TESTING [code = NOCPT] 07/02/2020 of Medicine Future Screening for malignant [facility] Scheduled Test neoplasm of colon of Medic ine (procedure) [code = 816745482] Future COVID-19 Vaccine (1) [facility] Scheduled Test [code = COVID-19 Vaccine o f Medicine (1)] Future BMI FOLLOW UP PLAN [code [facility] Scheduled Test = BMI FOLLOW UP PLAN] of [facility] Future Hepatitis C screening [facility] Scheduled Test (procedure) [code = of Med icine 287260839] Future Abdominal aortic [facility] ege Scheduled Test aneurysm screening of Medi cine (procedure) [code = 762165146] Future FALL SCREEN [code = FALL [facility] Scheduled Test SCREEN] of Medicine Future MEDICARE AWV (Initial) [facility] Scheduled Test [code = MEDICARE AWV of Me dicine (Initial)] Future ZOSTER VACCINE (2 of 2) [facility] Scheduled Test [code = ZOSTER VACCINE of Medicine (2 of 2)] Future FLU VACCINE > 6 MONTHS [facility] Scheduled Test [code = FLU VACCINE > 6 of Medicine MONTHS] Future TETANUS SHOT (ADULT) [facility] Scheduled Test [code = TETANUS SHOT of Me dicine (ADULT)] Future EGD W/MAC - GI DEPT 1 Occurrences [facility] Scheduled Test [code = 03407] starting of Medicine 09/22/2019 until 03/23/2020 Encounters Start End Encounter Admission Attending Care Care Encounter Source Date/Time Date/Time Type Type Clinicians Facility Department ID 2021-01-04 Outpatient SANDI, SLE Surgery [id number] SLE 17:51:07 CHUCKIE 2021-01-03 Outpatient SANDI, SLE Surgery [id number] [facility] 09:54:24 CHUCKIE 2021-01-02 Outpatient SANDI, SLE Surgery [id number] SLE 11:39:59 CHUCKIE 2021-01-01 Outpatient SANDI, SLE Surgery [id number] SLE 22:09:55 [facility] 2020-03-08 Inpatient UR CARMEN, [facility] Gastro [id number] SLE 22:00:00 WILI 2020-12-31 2020-12-31 Telephone [facility] 1.2.840.114 [id number] Univers 00:00:00 00:00:00 Ned [place] [id number] i [phone] [place] dical [place] [address] [place] [address] 2020-11-30 2020-11-30 Telephone [facility] [id number] Univers 00:00:00 00:00:00 Citlali [place] [id number] [place] [phone] [place] dical n[place] [address] [place] [address] 2020-09-11 2020-09-11 Outpatient [facility] [id number] [facility] 2020-09-03 2020-09-03 Outpatient [facility] [id number] [facility] 2020-09-03 2020-09-03 Outpatient [facility]LMLC [facility] [id number] [facility] 2020-08-02 2020-08-02 Telephone [facility] 1.2.840.114 [id number] Univers 00:00:00 00:00:00 Ned [place] [id number] [place] [phone] [place] dical nal 204 [facility] 2020-08-02 2020-08-02 Telephone Faisal [facility] 1.2.840.114 [id number] Univers 00:00:00 00:00:00 [facility] [place] [id number] [place] [phone] [place] dical nal 204 [facility] 2020-07-16 2020-07-16 Office Faisal [facility] 1.2.840.114 [id number] Univers 13:23:48 15:14:59 Visit , Adc Surg Spec Procedure [place] 3 50.1.13.10 [place] [phone] [place] dical nal 204 [facility] 2020-07-16 2020-07-16 [facility] [id number]-20 Univers 13:30:00 13:30:00 [facility] [id number] [facility] 2020-07-16 2020-07-16 [facility] [id number] Univers 13:30:00 13:30:00 [facility] 2020-07-09 2020-07-09 Receiver Setter Charles, Seth Lab Main [facility] 1.2.8 40.114 [id number] Univers 15:31:59 15:46:59 Visit Ned Daigle [id number] [place] [phone] [place] dical critical access hospital 353 [facility] 2020-07-09 2020-07-09 Outpatient R [facility] [id number] Univers 09:15:00 09:15:00 [id number] ity [facility] 2020-07-09 2020-07-09 [facility] [id number] Univers 09:15:00 09:15:00 [facility] 2020-07-09 2020-07-09 Orders Doctor GINNA 1.2.840.114 [id number] Univers 00:00:00 00:00:00 Only Unassigned, ALEXI 350.1.13.10 ity of [place] [facility] 4.2.7.2.686 [place] [phone] [place] [address] Branch 2020-07-06 2020-07-06 [facility] 1.2.840.114 [id number] Univers 00:00:00 00:00:00 Ned [place] 350.1.13.10 i [place] [phone] [address] 2020-07-02 2020-07-02 Office Samaria Wiggins [facility] 1.2.840.114 [id number] [facility] 13:53:33 15:51:05 Visit AMBULATOR 350.1.13.21 College Y 0.2.7.2.686 of [phone] [facility] 800 e 2020-06-21 2020-06-21 Outpatient [facility] [id number]-20 Univers 13:15:00 13:15:00 NED [id number] ity [facility] 2020-06-20 2020-06-20 Telephone [facility] 1.2.840.114 [id number] Univers 00:00:00 00:00:00 Ned [place] 350.1.13.10 i [place] [phone] [address] 2020-06-19 2020-06-19 Telephone [facility] 1.2.840.114 [id number] Univers 00:00:00 00:00:00 Ned [place] 350.1.13.10 i [place] [phone] [address] 2020-06-18 2020-06-18 Receiver Setter 2, Adc Lab [facility] 1.2.840.114 [id number] Univers 15:54:11 16:09:11 Visit Ned [place] 350.1.13.10 [place] [phone] [place] dical nal 353 [facility] 2020-06-18 2020-06-18 Outpatient R [facility] [id number] -[id number] Univers 16:00:00 16:00:00 [id number] [facility] 2020-06-18 2020-06-18 [facility] 1.2.840.114 [id number] Univers 14:32:49 15:50:41 Visit Ned Edwards 350.1.13.10 i ty [facility] [place] [phone] [place] dical nal 204 [facility] 2020-06-18 2020-06-18 [facility] [id number] Univers 15:00:00 15:00:00 [facility] 2020-04-03 2020-04-03 Outpatient STLMLC STLMLC [id number] [facility] 00:00:00 00:00:00 [facility] 2020-03-05 2020-03-05 Outpatient EL SLEH [facility]H [id number] [facility] 00:00:00 00:00:00 2020-02-13 2020-02-13 Outpatient EL [facility]H [facility] [id number] [facility]H 00:00:00 00:00:00 2020-01-18 2020-01-18 Outpatient EL [facility]H [facility]H [id number] [facility]H 00:00:00 00:00:00 2019-09-22 2019-09-22 Office Sandi, BCM 1.2.840.114 [id number] [facility] 09:37:45 16:43:25 Visit Chuckie M. AMBULATOR 350.1.13.21 College Y 0.2.7.2.686 of [phone] [place] [address] e 2019-09-22 2019-09-22 Office Sandi, BCM 1.2.840.114 [id number] 09:37:45 16:43:25 Visit Chuckie M. AMBULATOR 350.1.13.21 Y 0.2.7.2.686 [phone] 325 2019-08-02 2019-08-02 [facility] [id number] 09:00:00 09:00:00 [facility] ent Clinics Results Test Description Test Time Test Comments Results Result Comments Source POCT URINALYSIS, INSTRUMENT 2020-07-16 18:42:00 Test Item Value Reference Range Interpretation Comme nts POCT U SP GRAV (test code = 3255) 1.005 mg/dl 1.005-1.025 POCT PH U (test code = 3254) 5.5 mg/dl 5-8 POCT U LEUK EST (test code = 3263) Negative Negative - Negative POCT U NIT (test code = 3262) Negative Negative - Negative POCT U PROT (test code = 3259) Negative Negative - Negative POCT U GLU (test code = 3256) Negative Negative - Negative POCT U KETONE (test code = 3258) Negative Negative - Negative POCT U UROBILI (test code = 3260) 0.2 mg/dl 0.2-1 POCT U BILI (test code = 3261) Negative Negative - Negative POCT U BLD (test code = 3257) Negative Negative - Negative POCT U COLOR (test code = 3266) yellow POCT U APPEAR (test code = 3267) clear Lab Interpretation (test code = 84562-6) Normal [facility] URINALYSIS, [id number] 18:42:00 Test Item Value Reference Range Interpretation Comments POCT U SP GRAV (test code = 1.005 mg/dl 1.005-1.025 3255) POCT PH U (test code = 3254) 5.5 mg/dl 5-8 POCT U LEUK EST (test code = Negative Negative - Negative 3263) POCT U NIT (test code = 3262) Negative Negative - Negative POCT U PROT (test code = Negative Negative - Negative 3259) POCT U GLU (test code = 3256) Negative Negative - Negative POCT U KETONE (test code = Negative Negative - Negative 3258) POCT U UROBILI (test code = 0.2 mg/dl 0.2-1 3260) POCT U BILI (test code = Negative Negative - Negative 3261) POCT U BLD (test code = 3257) Negative Negative - Negative POCT U COLOR (test code = yellow 3266) POCT U APPEAR (test code = clear 3267) Lab Interpretation (test code Normal = 69408-3) [facility] URINALYSIS, [id number] 20:04:00 Test Item Value Reference Range Interpretation Comments POCT U SP GRAV (test code = 1.025 mg/dl 1.005-1.025 3255) POCT PH U (test code = 3254) 7.0 mg/dl 5-8 POCT U LEUK EST (test code = Negative Negative - Negative 3263) POCT U NIT (test code = 3262) Negative Negative - Negative POCT U PROT (test code = Negative Negative - Negative 3259) POCT U GLU (test code = 3256) Negative Negative - Negative POCT U KETONE (test code = Negative Negative - Negative 3258) POCT U UROBILI (test code = 1.0 mg/dl 0.2-1 3260) POCT U BILI (test code = Negative Negative - Negative 3261) POCT U BLD (test code = 3257) Large Negative - Negative POCT U COLOR (test code = yellow 3266) POCT U APPEAR (test code = clear 3267) Lab Interpretation (test code Abnormal = 96805-1) [facility] URINALYSIS, [id number] 20:04:00 Test Item Value Reference Range Interpretation Comments POCT U SP GRAV (test code = 1.025 mg/dl 1.005-1.025 3255) POCT PH U (test code = 3254) 7.0 mg/dl 5-8 POCT U LEUK EST (test code = Negative Negative - Negative 3263) POCT U NIT (test code = 3262) Negative Negative - Negative POCT U PROT (test code = Negative Negative - Negative 3259) POCT U GLU (test code = 3256) Negative Negative - Negative POCT U KETONE (test code = Negative Negative - Negative 3258) POCT U UROBILI (test code = 1.0 mg/dl 0.2-1 3260) POCT U BILI (test code = Negative Negative - Negative 3261) POCT U BLD (test code = 3257) Large Negative - Negative POCT U COLOR (test code = yellow 3266) POCT U APPEAR (test code = clear 3267) Lab Interpretation (test code Abnormal = 41845-1) [id number] 05:46:00 Test Item Value Reference Range Interpretation Comments PROTIME (BEAKER) (test code = 20.1 seconds 11.9-14.2 H 759) INR (BEAKER) (test code = 370) 1.76 <=5.90 Effective 08/25/2018: PT Reference Range ChangeNew: 11.9-14.2 Previous: 11.7- 14.7RECOMMENDED COUMADIN/WARFARIN INR THERAPY RANGESSTANDARD DOSE: 2.0-3.0 Includes: PROPHYLAXIS for venous thrombosis, systemic embolization; TREATMENT for venous thrombosis and/or pulmonary embolus.HIGH RISK: Target INR is2.5-3.5 for patients wiht mechanical heart valves.CBC W/PLT COUNT & AUTO [id number] 05:27:00 Test Item Value Reference Range Interpretation Comments WHITE BLOOD CELL COUNT (BEAKER) 5.8 K/ L 3.5-10.5 (test code = 775) RED BLOOD CELL COUNT (BEAKER) 3.71 M/ L 4.63-6.08 L (test code = 761) HEMOGLOBIN (BEAKER) (test code = 12.0 GM/DL 13.7-17.5 L 410) HEMATOCRIT (BEAKER) (test code = 37.2 % 40.1-51.0 L 411) MEAN CORPUSCULAR VOLUME (BEAKER) 100.3 fL 79.0-92.2 H (test code = 753) MEAN CORPUSCULAR HEMOGLOBIN 32.3 pg 25.7-32.2 H (BEAKER) (test code = 751) MEAN CORPUSCULAR HEMOGLOBIN CONC 32.3 GM/DL 32.3-36.5 (BEAKER) (test code = 752) RED CELL DISTRIBUTION WIDTH 13.3 % 11.6-14.4 (BEAKER) (test code = 412) PLATELET COUNT (BEAKER) (test 197 K/CU MM 150-450 code = 756) MEAN PLATELET VOLUME (BEAKER) 9.2 fL 9.4-12.4 L (test code = 754) NUCLEATED RED BLOOD CELLS 0 /100 WBC 0-0 (BEAKER) (test code = 413) NEUTROPHILS RELATIVE PERCENT 49 % (BEAKER) (test code = 429) LYMPHOCYTES RELATIVE PERCENT 36 % (BEAKER) (test code = 430) MONOCYTES RELATIVE PERCENT 9 % (BEAKER) (test code = 431) EOSINOPHILS RELATIVE PERCENT 6 % (BEAKER) (test code = 432) BASOPHILS RELATIVE PERCENT 0 % (BEAKER) (test code = 437) NEUTROPHILS ABSOLUTE COUNT 2.85 K/ L 1.78-5.38 (BEAKER) (test code = 670) LYMPHOCYTES ABSOLUTE COUNT 2.08 K/ L 1.32-3.57 (BEAKER) (test code = 414) MONOCYTES ABSOLUTE COUNT (BEAKER) 0.53 K/ L 0.30-0.82 (test code = 415) EOSINOPHILS ABSOLUTE COUNT 0.33 K/ L 0.04-0.54 (BEAKER) (test code = 416) BASOPHILS ABSOLUTE COUNT (BEAKER) 0.02 K/ L 0.01-0.08 (test code = 417) IMMATURE GRANULOCYTES-RELATIVE 0 % 0-1 PERCENT (BEAKER) (test code = 2801) HEMOGLOBIN AND [id number] 16:14:00 Test Item Value Reference Range Interpretation Comments HEMOGLOBIN (BEAKER) (test code = 13.1 GM/DL 13.7-17.5 L 410) HEMATOCRIT (BEAKER) (test code = 40.9 % 40.1-51.0 411) Ticket Speculator ID - [id number]/RT-PCR ([facility])2020-03-09 11:34:00 Test Item Value Reference Range Interpretation Comments SARS-COV2/RT-PCR (test Negative Not Detected, Negative, code = 4966858) See external report for linked test SARS-COV-[address] [facility] (test code = 0668388) Negative result for this test determines that SARS-CoV-2 RNA was not present in the specimen above the Limit of Detection (LOD). However, Negative results do not preclude SARS-CoV-2 infection and should not be used as the sole basis for treatment or patient management decisions. Negative results mustbe combined with clinical observations, patient history, and epidemiological information. A false negative result may occur if a specimen is improperly collected, transported or handled. A false negative result should be considered if patient's recent exposures or clinical presentation indicate that COVID-19 (SARS-CoV-2) is likely and diagnostic tests for other causes of illness are negative. Re-testing should be considered in cases of suspected false negatives.The limit of detection for this assay is 800 copies/mL.This SARS CoV-2 test is a real-time RT-PCR test intended for the qualitative detection of nucleic acid from SARS-CoV-2 in a nasopharyngeal swab specimen collected from individuals susp ected of COVID-19 by their healthcare provider.This test has not been Food and Drug Administration (FDA) cleared or approved. This is a modified version of an approved Emergency Use Authorization (EUA) and is in the process of review by the FDA. Once authorized by the FDA, the issued EUA will be effective until the declaration that circumstances exist justifying the authorization of the emergency use of in vitro diagnostic tests for detection and/or diagnosis of COVID-19 is terminated under Section 564(b)(2) of the Act or the EUA is revoked under Section 564(g) of the Act.Fact Sheet for Healthcare Providers:https://www.Outright/sites/default/files/product/documents/Fact_Shee r_EH_Xahztzyxs_Bmab_LXYM-PsX-4.pdfFact Sheet for Healthcare Patients:https://www.Outright/sites/default/files/product/ documents/Dajl_Sanuy_Bfhroeuv_Zxiu_HSVA-BpK-5.pdfPerforming Laboratory:[place] [address] [address] [place], [place] [address]KOJFB METABOLIC PANEL 2020-03-09 06:11:00 Test Item Value Reference Range Interpretation Comments SODIUM (BEAKER) (test 142 meq/L 136-145 code = 381) POTASSIUM (BEAKER) 4.0 meq/L 3.5-5.1 (test code = 379) CHLORIDE (BEAKER) 110 meq/L 98-107 H (test code = 382) CO2 (BEAKER) (test 24 meq/L 22-29 code = 355) BLOOD UREA NITROGEN 20 mg/dL 7-21 (BEAKER) (test code = 354) CREATININE (BEAKER) 0.95 mg/dL 0.57-1.25 (test code = 358) GLUCOSE RANDOM 90 mg/dL 70-105 (BEAKER) (test code = 652) CALCIUM (BEAKER) (test 9.0 mg/dL 8.4-10.2 code = 697) EGFR (BEAKER) (test ESTIMATE D GFR IS NOT code = 1092) ACCURATE CREATININE ACE EMILIA IN PREDICTING GLOMERULAR FILT RATION RATE. ESTIMATED GFR IS NOT APPLICAB LE FOR DIALYSIS PATIEN TS. Ticket Speculator ID - EDASIHEPATIC FUNCTION [id number] 06:10:00 Test Item Value Reference Range Interpretation Comments TOTAL PROTEIN (BEAKER) (test code = 6.5 gm/dL 6.0-8.3 770) ALBUMIN (BEAKER) (test code = 1145) 3.8 g/dL 3.5-5.0 BILIRUBIN TOTAL (BEAKER) (test code 1.3 mg/dL 0.2-1.2 H = 377) BILIRUBIN DIRECT (BEAKER) (test 0.5 mg/dL 0.1-0.5 code = 706) ALKALINE PHOSPHATASE (BEAKER) (test 67 U/L 40-150 code = 346) AST (SGOT) (BEAKER) (test code = 39 U/L 5-34 H 353) ALT (SGPT) (BEAKER) (test code = 32 U/L 6-55 347) Ticket Speculator ID - [id number] [id number] 05:21:00 Test Item Value Reference Range Interpretation Comments PROTIME (BEAKER) (test code = 19.4 seconds 11.9-14.2 H 759) INR (BEAKER) (test code = 370) 1.69 <=5.90 Effective 08/25/2018: PT Reference Range ChangeNew: 11.9-14.2 Previous: 11.7- 14.7RECOMMENDED COUMADIN/WARFARIN INR THERAPY RANGESSTANDARD DOSE: 2.0-3.0 Includes: PROPHYLAXIS for venous thrombosis, systemic embolization; TREATMENT for venous thrombosis and/or pulmonary embolus.HIGH RISK: Target INR is2.5-3.5 for patients wiht mechanical heart valves.CBC W/PLT COUNT & AUTO [id number] 05:18:00 Test Item Value Reference Range Interpretation Comments WHITE BLOOD CELL COUNT (BEAKER) 7.1 K/ L 3.5-10.5 (test code = 775) RED BLOOD CELL COUNT (BEAKER) 3.68 M/ L 4.63-6.08 L (test code = 761) HEMOGLOBIN (BEAKER) (test code = 11.9 GM/DL 13.7-17.5 L 410) HEMATOCRIT (BEAKER) (test code = 36.8 % 40.1-51.0 L 411) MEAN CORPUSCULAR VOLUME (BEAKER) 100.0 fL 79.0-92.2 H (test code = 753) MEAN CORPUSCULAR HEMOGLOBIN 32.3 pg 25.7-32.2 H (BEAKER) (test code = 751) MEAN CORPUSCULAR HEMOGLOBIN CONC 32.3 GM/DL 32.3-36.5 (BEAKER) (test code = 752) RED CELL DISTRIBUTION WIDTH 13.2 % 11.6-14.4 (BEAKER) (test code = 412) PLATELET COUNT (BEAKER) (test 201 K/CU MM 150-450 code = 756) MEAN PLATELET VOLUME (BEAKER) 9.7 fL 9.4-12.4 (test code = 754) NUCLEATED RED BLOOD CELLS 0 /100 WBC 0-0 (BEAKER) (test code = 413) NEUTROPHILS RELATIVE PERCENT 45 % (BEAKER) (test code = 429) LYMPHOCYTES RELATIVE PERCENT 40 % (BEAKER) (test code = 430) MONOCYTES RELATIVE PERCENT 11 % (BEAKER) (test code = 431) EOSINOPHILS RELATIVE PERCENT 3 % (BEAKER) (test code = 432) BASOPHILS RELATIVE PERCENT 0 % (BEAKER) (test code = 437) NEUTROPHILS ABSOLUTE COUNT 3.20 K/ L 1.78-5.38 (BEAKER) (test code = 670) LYMPHOCYTES ABSOLUTE COUNT 2.87 K/ L 1.32-3.57 (BEAKER) (test code = 414) MONOCYTES ABSOLUTE COUNT (BEAKER) 0.76 K/ L 0.30-0.82 (test code = 415) EOSINOPHILS ABSOLUTE COUNT 0.22 K/ L 0.04-0.54 (BEAKER) (test code = 416) BASOPHILS ABSOLUTE COUNT (BEAKER) 0.03 K/ L 0.01-0.08 (test code = 417) IMMATURE GRANULOCYTES-RELATIVE 0 % 0-1 PERCENT (BEAKER) (test code = 2801) HEMOGLOBIN AND [id number] 05:18:00 Test Item Value Reference Range Interpretation Comments HEMOGLOBIN (BEAKER) (test code = 11.9 GM/DL 13.7-17.5 L 410) HEMATOCRIT (BEAKER) (test code = 36.8 % 40.1-51.0 L 411) TISSUE [id number] 17:09:00Surgical Pathology Report Case: [id number] Authorizing Provider: Chuckie Aguilar Collected: 03/06/2020 11:53 AM Ordering Location: [facility] Endoscopy Received: 03/06/2020 02:38 PM Services Pathologist: Orquidea Gonzales MD Specimen: Biopsy, Gastric, random STOMACH, ENDOSCOPIC MUCOSAL BIOPSIES- ANTRAL AND OXYNTIC MUCOSA WITH MILD CHRONIC INACTIVE GASTRITIS - OXYNTIC MUCOSA WITH PARIETAL CELL HYPERTROPHY, see COMMENT- ANTRAL MUCOSA WITH INTESTINAL METAPLASIA- NEGATIVE FOR HELICOBACTER PYLORI- NEGATIVE FOR DYSPLASIA OR CARCINOMA Signing Pathologist Direct Phone Line: [phone] signed by Orquidea Gonzales MD on 03/08/2020 at 5:08 [id number], [id number], esophageal stenosisA-random gastric biopsySpecimen A is received in formalin labelled with the patient's name, medical record number and "random gastric biopsy" and consists of 5 lainez-brown mucosal covered and irregular tissue fragments measuring 0.5 x 0.4 x 0.8 cm in aggregate. The specimen is filtered and submitted entirely in A1.Giovanna Hartmann, MDMicroscopic examination is performed andthe findings are incorporated in the diagnostic line. Warthin starry stain is negative for Helicobacter pylori. The interpretation of this case included the use of immunohistochemistry or special stains.Control Slides Examined: In-house known positive controls were evaluated along with the test tissue. These control slides run alongside of the patients sample show appropriate staining. Internal positive and negative controls when available are evaluated Immunohistochemistry technical testing was performed at [facility], Pathology Laboratory where it was developed and [...] qualified to perform high complexity clinical laboratory testing.[id number] 11:41:00 Test Item Value Reference Range Interpretation [...] INR is2.5-3.5 for patients wiht mechanical heart valves.TISSUE [id number] 14:30:00Surgical Pathology Report Case: [id number] Authorizing Provider: Chuckie Aguilar Collected: 02/14/2020 01:11 PM Ordering Location: [facility] Endoscopy Received: 02/14/2020 02:29 PM Services Pathologist: Ayaka Aviles MD Specimen: Biopsy, Esophagus, at 43 A. ESOPHAGUS, AT 43, BIOPSY: - COLUMNAR MUCOSA WITH ACUTE AND CHRONIC INFLAMMATION, GRANULATION TISSUE AND REACTIVE CHANGES. - SQUAMOUS EPITHELIUM WITH NO SIGNIFICANT DIAGNOSTIC ALTERATION. - NEGATIVE FOR SIGNIFICANT INTRA-EPITHELIAL EOSINOPHILS. - NEGATIVE FOR SPECIALIZED METAPLASTIC EPITHELIUM.- NEGATIVE FOR DYSPLASIA OR MALIGNANCY. Signing Pathologist Direct Phone Line: [phone] signed by Ayaka Aviles MD on 02/16/2020 at 2:30 [id number], [id number], [id number] biopsy Received in formalin labeled with the [...] evaluated Immunohistochemistry technical testing was performed at [facility], Pathology Laboratory where it was developed [...] qualified to perform high complexity clinical laboratory testing.[facility], Department of Pathology, [address] [place] [address], [facility], [facility] of [facility] ogy, [address] [place] [address], [facility], Department of Pathology, [address] [place] [address], JZZZGZHDVIF TIME/[id number] 11:45:00 Test Item Value Reference Range Interpretation [...] INR is2.5-3.5 for patients wiht mechanical heart valves.PT/[id number] 13:03:00 Test Item Value Reference Range Interpretation [...] is2.5-3.5 for patients wiht mechanical heart valves.ANAEROBIC [id number] 03:13:00 Test Item Value Reference Range Interpretation Comments CULTURE (BEAKER) (test No anaerobes isolated code = 1095) BLOOD [id number] 01:01:00 Test Item Value Reference Range Interpretation Comments CULTURE (BEAKER) (test No growth in 5 days code = 1095) BLOOD [id number] 19:01:00 Test Item Value Reference Range Interpretation Comments CULTURE (BEAKER) (test No growth in 5 days code = 1095) SURGICALLY OBTAINED CULTURE + GRAM [id number] 10:24:00 Test Item Value Reference Range Interpretation [...] No organisms (BEAKER) (test code = seen 272931) BASIC METABOLIC [id number] 05:29:00 Test Item Value Reference Range Interpretation [...] NOT APPLICABLE FOR DIALYSIS PATIEN TS. PROTHROMBIN [id number] 05:20:00 Test Item Value Reference Range Interpretation [...] 0-0 (BEAKER) (test code = 413) FL, [id number] 15:36:00Reason for exam:->abnormal imagingFINAL REPORT Intraoperative fluoroscopy [...] did not perform fluoroscopy. Signed: Naomy Gunderson MDReport Verified Date/Time: 04/29/2018 15:36:30 Reading Location: [address] Consult Reading Room COMPREHENSIVE METABOLIC PANEL [...] NOT APPLICABLE FOR DIALYSIS PATIEN TS. PROTHROMBIN TIME/[id number] 05:50:00 Test Item Value Reference Range Interpretation [...] PERCENT (BEAKER) (test code = 2801) PROTHROMBIN TIME/[id number] 18:49:00 Test Item Value Reference Range Interpretation Comments PROTIME (BEAKER) (test code = 20.6 seconds 11.7-14.7 H 759) INR (BEAKER) (test code = 370) 1.8 <=5.9 RECOMMENDED COUMADIN/WARFARIN INR THERAPY RANGESSTANDARD DOSE: 2.0 - 3.0 Includes: PROPHYLAXIS forvenous thrombosis, systemic embolization; TREATMENT for venous thrombosis and/or pulmonary embolus.HIGH RISK: Target INR is 2.5-3.5 for patients with mechanical heart valves.CT, [id number] 20:18:00Possible wound infection vs dehiscence, ANANTH drain [...] Nevarez MDReport Verified Date/Time: 20:18:36 Reading Location: [address] Reading Room [facility] 2018-04-26 13:11:00 Test Item Value Reference Range Interpretation Comments MAGNESIUM (BEAKER) (test code = 1.5 mg/dL 1.6-2.6 L 627) BASIC METABOLIC [id number] 13:11:00 Test Item Value Reference Range Interpretation [...] APPLICABLE FOR DIALYSIS PATIEN TS. HEPATIC FUNCTION [id number] 13:11:00 Test Item Value Reference Range Interpretation [...] (test code = 10 U/L 6-55 347) [id number] 13:02:00 Test Item Value Reference Range Interpretation Comments PARTIAL THROMBOPLASTIN TIME 52.9 seconds 22.5-36.0 H (BEAKER) (test code = 760) PROTHROMBIN TIME/[id number] 13:00:00 Test Item Value Reference Range Interpretation [...] 0-1 PERCENT (BEAKER) (test code = 2801) [id number] 07:26:00 Test Item Value Reference Range Interpretation Comments MAGNESIUM (BEAKER) (test code = 2.0 mg/dL 1.6-2.6 627) BASIC METABOLIC [id number] 07:26:00 Test Item Value Reference Range Interpretation [...] APPLICABLE FOR DIALYSIS PATIEN TS. HEPATIC FUNCTION [id number] 07:26:00 Test Item Value Reference Range Interpretation [...] (test code = 12 U/L 6-55 347) [id number] 07:25:00 Test Item Value Reference Range Interpretation Comments PHOSPHORUS (BEAKER) (test code = 2.6 mg/dL 2.3-4.7 604) PROTHROMBIN TIME/[id number] 07:11:00 Test Item Value Reference Range Interpretation [...] (BEAKER) (test code = 2801) HEPATIC FUNCTION [id number] 07:51:00 Test Item Value Reference Range Interpretation [...] (test code = 12 U/L 6-55 347) [id number] 06:10:00 Test Item Value Reference Range Interpretation Comments PHOSPHORUS (BEAKER) (test code = 2.5 mg/dL 2.3-4.7 604) [id number] 06:10:00 Test Item Value Reference Range Interpretation Comments MAGNESIUM (BEAKER) (test code = 1.8 mg/dL 1.6-2.6 627) BASIC METABOLIC [id number] 06:10:00 Test Item Value Reference Range Interpretation [...] NOT APPLICABLE FOR DIALYSIS PATIEN TS. PROTHROMBIN [id number] 05:54:00 Test Item Value Reference Range Interpretation [...] PERCENT (BEAKER) (test code = 2801) PROTHROMBIN [id number] 09:25:00 Test Item Value Reference Range Interpretation Comments PROTIME (BEAKER) (test code = 30.8 seconds 11.7-14.7 H 759) INR (BEAKER) (test code = 370) 3.0 <=5.9 RECOMMENDED COUMADIN/WARFARIN INR THERAPY RANGESSTANDARD DOSE: 2.0 - 3.0 Includes: PROPHYLAXIS forvenous thrombosis, systemic embolization; TREATMENT for venous thrombosis and/or pulmonary embolus.HIGH RISK: Target INR is 2.5-3.5 for patients with mechanical heart valves.[id number] 09:15:00 Test Item Value Reference Range Interpretation Comments PHOSPHORUS (BEAKER) (test code = 2.5 mg/dL 2.3-4.7 604) [id number] 09:15:00 Test Item Value Reference Range Interpretation Comments MAGNESIUM (BEAKER) (test code = 1.8 mg/dL 1.6-2.6 627) BASIC METABOLIC [id number] 09:15:00 Test Item Value Reference Range Interpretation [...] PATIEN TS. CBC W/PLT COUNT & AUTO [id number] 08:59:00 Test Item Value Reference Range Interpretation [...] 0-1 PERCENT (BEAKER) (test code = 2801) [id number] 09:36:00 Test Item Value Reference Range Interpretation Comments PHOSPHORUS (BEAKER) (test code = 2.4 mg/dL 2.3-4.7 604) [id number] 09:36:00 Test Item Value Reference Range Interpretation Comments MAGNESIUM (BEAKER) (test code = 1.7 mg/dL 1.6-2.6 627) BASIC METABOLIC [id number] 09:36:00 Test Item Value Reference Range Interpretation [...] NOT APPLICABLE FOR DIALYSIS PATIEN TS. PROTHROMBIN [id number] 09:32:00 Test Item Value Reference Range Interpretation [...] % 0-1 PERCENT (BEAKER) (test code = 2807) BLOOD [id number] 19:01:00 Test Item Value Reference Range Interpretation Comments CULTURE (BEAKER) (test No growth in 5 days code = 1095) BLOOD [id number] 19:01:00 Test Item Value Reference Range Interpretation Comments CULTURE (BEAKER) (test No growth in 5 days code = 1095) POCT-GLUCOSE [id number] 17:07:00 Test Item Value Reference Range Interpretation Comments POC-GLUCOSE METER 97 mg/dL 70-110 TESTED AT [place] 3820920 (BEAKER) (test code = [place] [address] 1538) POCT-GLUCOSE [id number] 16:56:00 Test Item Value Reference Range Interpretation Comments POC-GLUCOSE METER 122 mg/dL 70-[address] [facility] 6720 (BEAKER) (test code = [facility] 1538) [address] HEPATIC FUNCTION [id number] 09:24:00 Test Item Value Reference Range Interpretation [...] code = 14 U/L 6-55 347) POCT-GLUCOSE [id number] 08:47:00 Test Item Value Reference Range Interpretation Comments POC-GLUCOSE METER 82 mg/dL 70-[address] [facility] 6720 ([facility]) (test code = [facility] [address] 1538) CBC W/PLT COUNT & AUTO [id number] 08:39:00 Test Item Value Reference Range Interpretation Comments WHITE BLOOD CELL COUNT (BEAKER) 14.4 K/ L 3.5-10.5 H (test code = 775) RED BLOOD CELL COUNT (AKER) 3.50 M/ L 4.63-6.08 L (test code [...] 0-1 PERCENT (BEAKER) (test code = 2801) [id number] 06:51:00 Test Item Value Reference Range Interpretation Comments PHOSPHORUS (BEAKER) (test code = 1.6 mg/dL 2.3-4.7 L 604) [id number] 06:51:00 Test Item Value Reference Range Interpretation Comments MAGNESIUM (BEAKER) (test code = 1.9 mg/dL 1.6-2.6 627) BASIC METABOLIC [id number] 06:51:00 Test Item Value Reference Range Interpretation [...] NOT APPLICABLE FOR DIALYSIS PATIEN TS. PROTHROMBIN [id number] 06:48:00 Test Item Value Reference Range Interpretation Comments PROTIME (BEAKER) (test code = 29.8 seconds 11.7-14.7 H 759) INR (BEAKER) (test code = 370) 2.9 <=5.9 RECOMMENDED COUMADIN/WARFARIN INR THERAPY RANGESSTANDARD DOSE: 2.0 - 3.0 Includes: PROPHYLAXIS forvenous thrombosis, systemic embolization; TREATMENT for venous thrombosis and/or pulmonary embolus.HIGH RISK: Target INR is 2.5-3.5 for patients with mechanical heart valves.BASIC METABOLIC [id number] 01:00:00 Test Item Value Reference Range Interpretation [...] APPLICABLE FOR DIALYSIS PATIEN TS. HEMOGLOBIN AND [id number] 00:44:00 Test Item Value Reference Range Interpretation Comments HEMOGLOBIN (DARIOAKER) (test code = 10.0 GM/DL 13.7-17.5 L 410) HEMATOCRIT (BEAKER) (test code = 30.5 % 40.1-51.0 L 411) POCT-GLUCOSE [id number] 00:41:00 Test Item Value Reference Range Interpretation Comments POC-GLUCOSE METER 100 mg/dL 70-110 TESTED AT [place] [address] ([facility]) (test code = [place] Benites [facility] 1538) [address] PROTHROMBIN [id number] 23:45:00 Test Item Value Reference Range Interpretation Comments PROTIME (DARIOAKER) (test code = 30.7 seconds 11.7-14.7 H 759) INR (BEAKER) (test code = 370) 3.0 <=5.9 RECOMMENDED COUMADIN/WARFARIN INR THERAPY RANGESSTANDARD DOSE: 2.0 - 3.0 Includes: PROPHYLAXIS forvenous thrombosis, systemic embolization; TREATMENT for venous thrombosis and/or pulmonary embolus.HIGH RISK: Target INR is 2.5-3.5 for patients with mechanical heart valves.POCT-GLUCOSE [id number] 18:15:00 Test Item Value Reference Range Interpretation Comments POC-GLUCOSE METER 113 mg/dL 70-110 H TESTED AT [place] [address] ([facility]) (test code = [facility] Kamari [facility] 1538) [address] PROTHROMBIN [id number] 13:06:00 Test Item Value Reference Range Interpretation Comments PROTIME (AMADOR) (test code = 28.3 seconds 11.7-14.7 H 759) INR (BEAKER) (test code = 370) 2.6 <=5.9 RECOMMENDED COUMADIN/WARFARIN INR THERAPY RANGESSTANDARD DOSE: 2.0 - 3.0 Includes: PROPHYLAXIS forvenous thrombosis, systemic embolization; TREATMENT for venous thrombosis and/or pulmonary embolus.HIGH RISK: Target INR is 2.5-3.5 for patients with mechanical heart valves.HEMOGLOBIN AND [id number] 12:43:00 Test Item Value Reference Range Interpretation Comments HEMOGLOBIN (BEAKER) (test code = 9.9 GM/DL 13.7-17.5 L 410) HEMATOCRIT (BEAKER) (test code = 29.7 % 40.1-51.0 L 411) POCT-GLUCOSE [id number] 12:09:00 Test Item Value Reference Range Interpretation Comments POC-GLUCOSE METER 144 mg/dL 70-[address] [facility] 6720 [facility] (test code = [place] [facility] 1538) [address] HEMOGLOBIN AND [id number] 06:16:00 Test Item Value Reference Range Interpretation Comments HEMOGLOBIN (BEAKER) (test code = 9.0 GM/DL 13.7-17.5 L 410) HEMATOCRIT (BEAKER) (test code = 28.0 % 40.1-51.0 L 411) POCT-GLUCOSE [id number] 06:00:00 Test Item Value Reference Range Interpretation Comments POC-GLUCOSE METER 118 mg/dL 70-[address] [facility] 6720 ([facility]) (test code = [facility] 1538) [address] [id number] 05:20:00 Test Item Value Reference Range Interpretation Comments PHOSPHORUS (BEAKER) (test code = 2.7 mg/dL 2.3-4.7 604) [id number] 05:20:00 Test Item Value Reference Range Interpretation Comments MAGNESIUM (BEAKER) (test code = 1.9 mg/dL 1.6-2.6 627) BASIC METABOLIC [id number] 05:20:00 Test Item Value Reference Range Interpretation [...] APPLICABLE FOR DIALYSIS PATIEN TS. HEPATIC FUNCTION [id number] 05:20:00 Test Item Value Reference Range Interpretation [...] U/L 6-55 347) LACTIC ACID, ARTERIAL, WHOLE [id number] 05:08:00 Test Item Value Reference Range Interpretation Comments LACTATE BLOOD ARTERIAL (2) 0.9 mmol/L 0.5-2.2 (BEAKER) (test code = 2874) PROTHROMBIN [id number] 05:03:00 Test Item Value Reference Range Interpretation [...] PERCENT (BEAKER) (test code = 2801) PROTHROMBIN [id number] 00:39:00 Test Item Value Reference Range Interpretation Comments PROTIME (BEAKER) (test code = 25.3 seconds 11.7-14.7 H 759) INR (BEAKER) (test code = 370) 2.3 <=5.9 RECOMMENDED COUMADIN/WARFARIN INR THERAPY RANGESSTANDARD DOSE: 2.0 - 3.0 Includes: PROPHYLAXIS forvenous thrombosis, systemic embolization; TREATMENT for venous thrombosis and/or pulmonary embolus.HIGH RISK: Target INR is 2.5-3.5 for patients with mechanical heart valves.HEMOGLOBIN AND [id number] 00:30:00 Test Item Value Reference Range Interpretation Comments HEMOGLOBIN (BEAKER) (test code = 8.1 GM/DL 13.7-17.5 L 410) HEMATOCRIT (BEAKER) (test code = 25.0 % 40.1-51.0 L 411) POCT-GLUCOSE [id number] 00:30:00 Test Item Value Reference Range Interpretation Comments POC-GLUCOSE METER 129 mg/dL 70-110 H TESTED AT [place] [address] ([facility] (test code = [facility] 1538) [address] POCT-GLUCOSE [id number] 18:22:00 Test Item Value Reference Range Interpretation Comments POC-GLUCOSE METER 102 mg/dL 70-110 TESTED AT [place] [address] ([facility]) (test code = [facility] 1538) [address] PROTHROMBIN [id number] 17:09:00 Test Item Value Reference Range Interpretation Comments PROTIME (DARIOAKER) (test code = 25.8 seconds 11.7-14.7 H 759) INR (BEAKER) (test code = 370) 2.4 <=5.9 RECOMMENDED COUMADIN/WARFARIN INR THERAPY RANGESSTANDARD DOSE: 2.0 - 3.0 Includes: PROPHYLAXIS forvenous thrombosis, systemic embolization; TREATMENT for venous thrombosis and/or pulmonary embolus.HIGH RISK: Target INR is 2.5-3.5 for patients with mechanical heart valves.HEMOGLOBIN AND [id number] 16:59:00 Test Item Value Reference Range Interpretation Comments HEMOGLOBIN (BEAKER) (test code = 8.4 GM/DL 13.7-17.5 L 410) HEMATOCRIT (BEAKER) (test code = 25.8 % 40.1-51.0 L 411) TISSUE [id number] 16:07:00Surgical Pathology Report Case: [id number] Authorizing Provider: Isrrael Laureano MD Collected: 03/19/2018 2046 Ordering Location: [facility] PERIOPERATIVE Received: 03/22/2018 0841 SERVICES Pathologist: Meek Johnson MD Specimens: A) - Gallbladder, GALLBLADDER MUCOSA B) -Gallbladder A. GALLBLADDER MUCOSA, EXCISION: - NECROTIC FIBROADIPOSE TISSUE WITH BILE FRAGMENTS - NO VIABLE MUCOSA AVAILABLE FOR EVALUATIONB. GALLBLADDER, CHOLECYSTECTOMY: - MARKED ACUTE NECROTIZING CHOLECYSTITIS WITH HEMORRHAGE AND REACTIVE CHANGES Signing Pathologist Direct Phone Line: [phone] signed by Meek Johnson MD on 03/24/2018 at 4:07 [id number] 2Acute cholecystitis A. Gallbladder mucosa. B.Gallbladder The case was received in two parts labeled with the patient's name, Seven Diaz, date of 1950, and accession number, [id number], which corresponds with accompanying paperwork.A. Received in formalin and labeled "A. Gallbladder mucosa" is a 10.5 x 3.0 x 0.3 cm thick piece of velvety, shiny, green, soft tissue mucosa. The specimen is serially sectioned, and screening representative sections are submitted in cassettes A1 and A2.B. Received in formalin and labeled "B. Gallbladder" is a 6.5 x 4.5 x 0.7 cm thick piece of green-yellow to green soft tissue. The specimen is serially sectioned, and screening representative sections are submitted in cassettes B1 through B2. No common bile duct margin or duct can be identified. No calculi are identified. SC/ew Performed.FL, [id number] 15:39:00INTRA OP IMAGINGReason for exam:- >ABNORMAL IMAGINGFINAL REPORT Nondiagnostic exam. Radiology provided fluoroscopy for ERCP performed by Dr. Aguilar. Neither radiologist presence nor interpretation were requested. Please refer to the operative report for further information. Fluoroscopy time was 93.1 cm. Total # of images: 3 Signed: JR Muñoz Robert MDReport Verified Date/Time: 03/24/2018 15:39:33 Reading Location: [facility] C013W Consult Reading Room POCT- GLUCOSE [id number] 12:14:00 Test Item Value Reference Range Interpretation Comments POC-GLUCOSE METER 95 mg/dL 70-110 TESTED AT [place] [address] ([facility]) (test code = [place] Benites [facility] [address] 1538) PROTHROMBIN [id number] 06:56:00 Test Item Value Reference Range Interpretation Comments PROTIME (BEAKER) (test code = 20.1 seconds 11.7-14.7 H 759) INR (BEAKER) (test code = 370) 1.7 <=5.9 RECOMMENDED COUMADIN/WARFARIN INR THERAPY RANGESSTANDARD DOSE: 2.0 - 3.0 Includes: PROPHYLAXIS forvenous thrombosis, systemic embolization; TREATMENT for venous thrombosis and/or pulmonary embolus.HIGH RISK: Target INR is 2.5-3.5 for patients with mechanical heart valves.Atleast 30 min after Kcentra administrationHEMOGLOBIN AND [id number] 06:50:00 Test Item Value Reference Range Interpretation Comments HEMOGLOBIN (BEAKER) (test code = 8.9 GM/DL 13.7-17.5 L 410) HEMATOCRIT (BEAKER) (test code = 26.9 % 40.1-51.0 L 411) POCT-GLUCOSE [id number] 06:38:00 Test Item Value Reference Range Interpretation Comments POC-GLUCOSE METER 104 mg/dL 70-110 TESTED AT [place] [address] ([facility]) (test code = [place] Benites [facility] 1538) [address] POCT-GLUCOSE [id number] 05:02:00 Test Item Value Reference Range Interpretation Comments POC-GLUCOSE METER 115 mg/dL 70-110 H TESTED AT [place] [address] ([facility]) (test code = [place] [facility] 1538) [address] [id number] 04:24:00 Test Item Value Reference Range Interpretation Comments PHOSPHORUS (BEAKER) (test code = 2.2 mg/dL 2.3-4.7 L 604) [id number] 04:24:00 Test Item Value Reference Range Interpretation Comments MAGNESIUM (BEAKER) (test code = 2.0 mg/dL 1.6-2.6 627) BASIC METABOLIC [id number] 04:24:00 Test Item Value Reference Range Interpretation [...] S NOT APPLICABLE FOR DIALYSIS PATIEN TS. [id number] 04:17:00 Test Item Value Reference Range Interpretation [...] 2.5-3.5 for patients with mechanical heart valves.PROTHROMBIN TIME/[id number] 04:16:00 Test Item Value Reference Range Interpretation [...] (BEAKER) (test code = 2874) HEMOGLOBIN AND [id number] 04:01:00 Test Item Value Reference Range Interpretation Comments HEMOGLOBIN (BEAKER) (test code = 8.1 GM/DL 13.7-17.5 L 410) HEMATOCRIT (BEAKER) (test code = 23.7 % 40.1-51.0 L 411) CBC W/PLT COUNT & AUTO [id number] 04:01:00 Test Item Value Reference Range Interpretation [...] PERCENT (BEAKER) (test code = 2801) PROTHROMBIN [id number] 00:11:00 Test Item Value Reference Range Interpretation Comments PROTIME (BEAKER) (test code = 22.8 seconds 11.7-14.7 H 759) INR (BEAKER) (test code = 370) 2.0 <=5.9 RECOMMENDED COUMADIN/WARFARIN INR THERAPY RANGESSTANDARD DOSE: 2.0 - 3.0 Includes: PROPHYLAXIS forvenous thrombosis, systemic embolization; TREATMENT for venous thrombosis and/or pulmonary embolus.HIGH RISK: Target INR is 2.5-3.5 for patients with mechanical heart valves.HEMOGLOBIN AND [id number] 00:00:00 Test Item Value Reference Range Interpretation Comments HEMOGLOBIN (BEAKER) (test code = 8.1 GM/DL 13.7-17.5 L 410) HEMATOCRIT (BEAKER) (test code = 24.5 % 40.1-51.0 L 411) PROTHROMBIN TIME/[id number] 22:34:00 Test Item Value Reference Range Interpretation [...] mmol/L 0.5-2.2 Specimen sligh tly ARTERIAL (2) (BEAKER) hemoly zed (test code = 2874) PROTHROMBIN [id number] 18:04:00 Test Item Value Reference Range Interpretation Comments PROTIME (AMADOR) (test code = 19.8 seconds 11.7-14.7 H 759) INR (AMADOR) (test code = 370) 1.7 <=5.9 RECOMMENDED COUMADIN/WARFARIN INR THERAPY RANGESSTANDARD DOSE: 2.0 - 3.0 Includes: PROPHYLAXIS forvenous thrombosis, systemic embolization; TREATMENT for venous thrombosis and/or pulmonary embolus.HIGH RISK: Target INR is 2.5-3.5 for patients with mechanical heart valves.HEMOGLOBIN AND [id number] 17:32:00 Test Item Value Reference Range Interpretation Comments HEMOGLOBIN (AMADOR) (test code = 7.2 GM/DL 13.7-17.5 L 410) HEMATOCRIT (AMADOR) (test code = 21.7 % 40.1-51.0 L 411) POCT-GLUCOSE [id number] 17:31:00 Test Item Value Reference Range Interpretation Comments POC-GLUCOSE METER 130 mg/dL 70-[address] [facility] 6720 (AMADOR) (test code = [place] 1538) [address] RAD, CHEST, 1 VIEW, NON [id number] 14:37:00Reason for exam:->evalute for pulmonary edemaShould this be performed at the bedside?->YesFINAL REPORT HISTORY : evaluate for pulmonary edema. Comparison: 03/23/2018 performed earlier Comment: Single portable view of the chest was obtained. The cardiac silhouette size is enlarged. There are findings of pulmonary venous congestion. Interstitial prominence may represent interstitial edema. Pneumonitis cannot be excluded. There is a fxspi-kfvffryg-ntswe right- sided pleural effusion with some adjacent consolidation. The patient is status post sternotomy. Nasogastric tube is seen with the tip not included on the film. No lytic or blastic abnormalities are appreciated.No pneumothorax is visualized. Signed: Maia Valentin Verified Date/Time: 03/23/2018 14:37:03 Reading Location: [address] Reading Room RAD, ABDOMEN/KUB, 1 VIEW [id number] 13:18:00Reason for exam:->ng tubeShould this be performed [...] with some adjacent consolidation. Signed: Maia Valentin MDReport Verified Date/Time: 03/23/2018 13:18:37 Reading Location: [address] Transitional Reading Room POCT-GLUCOSE [id number] 12:57:00 Test Item Value Reference Range Interpretation Comments POC-GLUCOSE METER 177 mg/dL 70-[address] [facility] 6720 ([facility]) (test code = [place] 1538) [address] PROTHROMBIN [id number] 11:46:00 Test Item Value Reference Range Interpretation Comments PROTIME (AMADOR) (test code = 34.3 seconds 11.7-14.7 H 759) INR ([facility]) (test code = 370) 3.4 <=5.9 RECOMMENDED COUMADIN/WARFARIN INR THERAPY RANGESSTANDARD DOSE: 2.0 - 3.0 Includes: PROPHYLAXIS forvenous thrombosis, systemic embolization; TREATMENT for venous thrombosis and/or pulmonary embolus.HIGH RISK: Target INR is 2.5-3.5 for patients with mechanical heart valves.VANCOMYCIN LEVEL, [id number] 11:38:00 Test Item Value Reference Range Interpretation Comments VANCOMYCIN TROUGH (AMADOR) (test 15.5 ug/mL 10.0-20.0 code = 522) Please draw vancomycin level at 1230. If level >20 mcg/mL, hold 1300 dose and notify .HEMOGLOBIN AND [id number] 11:20:00 Test Item Value Reference Range Interpretation Comments HEMOGLOBIN (AMADOR) (test code = 8.0 GM/DL 13.7-17.5 L 410) HEMATOCRIT (BEAKER) (test code = 23.0 % 40.1-51.0 L 411) URINE [id number] 10:24:00 Test Item Value Reference Range Interpretation Comments CULTURE (BEAKER) (test code = 1095) No growth BASIC METABOLIC [id number] 09:00:00 Test Item Value Reference Range Interpretation [...] S NOT APPLICABLE FOR DIALYSIS PATIEN TS. [id number] 07:03:00 Test Item Value Reference Range Interpretation Comments PHOSPHORUS (BEAKER) (test code = 3.1 mg/dL 2.3-4.7 604) [id number] 07:03:00 Test Item Value Reference Range Interpretation Comments MAGNESIUM (BEAKER) (test code = 2.0 mg/dL 1.6-2.6 627) PROTHROMBIN [id number] 06:56:00 Test Item Value Reference Range Interpretation [...] PERCENT (BEAKER) (test code = 2801) POCT-GLUCOSE [id number] 06:09:00 Test Item Value Reference Range Interpretation Comments POC-GLUCOSE METER 155 mg/dL 70-110 H TESTED AT 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 A [...] today's examination is limited. Results discussedwith the surgical asst caring for the patient at 0200 hours. Signed: Tony Nevarez MDReport Verified Date/Time: 03/23/2018 02:10:42 Reading Location: [address] Reading Room RAD, CHEST, 1 VIEW, NON [id number] 02:06:00Reason for exam:- >Labored breathingShould this be [...] significant interval change. Results discussed with the surgical asst caring for the patient at the time of dictation. Signed: Tony Nevarez Verified Date/Time: 03/23/201802:06:45 Reading Location: [address] Reading Room -GLUCOSE [id number] 01:49:00 Test Item Value Reference Range Interpretation Comments POC-GLUCOSE METER 154 mg/dL 70-[address] [facility] 6720 ([facility]) (test code = CHACHA [place] 1539) [id number] PROTHROMBIN TIME/[id number] 22:17:00 Test Item Value Reference Range Interpretation Comments PROTIME (AMADOR) (test code = 34.2 seconds 11.7-14.7 H 759) [facility] (test code = 370) 3.4 <=5.9 RECOMMENDED COUMADIN/WARFARIN INR THERAPY RANGESSTANDARD DOSE: 2.0 - 3.0 Includes: PROPHYLAXIS forvenous thrombosis, systemic embolization; TREATMENT for venous thrombosis and/or pulmonary embolus.HIGH RISK: Target INR is 2.5-3.5 for patients with mechanical heart valves.HEMOGLOBIN AND [id number] 22:07:00 Test Item Value Reference Range Interpretation Comments HEMOGLOBIN (BEAKER) (test code = 6.9 GM/DL 13.7-17.5 L 410) HEMATOCRIT (BEAKER) (test code = 21.2 % 40.1-51.0 L 411) CT, [id number] 14:34:00FINAL REPORT CT scan of the abdomen [...] the time of dictation. Signed: Leeann Gagnon MDReport Verified Date/Time: 03/22/2018 14:34:23 Reading Location: [facility] B1 C013X Ortho Consult Reading Room PROTHROMBIN TIME/[id number] 08:57:00 Test Item Value Reference Range Interpretation [...] PERCENT (BEAKER) (test code = 2801) POCT-GLUCOSE [id number] 07:56:00 Test Item Value Reference Range Interpretation Comments POC-GLUCOSE METER 154 mg/dL 70-[address] [facility] 6720 (BEAKER) (test code = CHACHA Benites [place] 1538) [address] [id number] 07:17:00 Test Item Value Reference Range Interpretation Comments PHOSPHORUS (BEAKER) (test code = 3.0 mg/dL 2.3-4.7 604) [id number] 07:17:00 Test Item Value Reference Range Interpretation Comments MAGNESIUM (BEAKER) (test code = 2.2 mg/dL 1.6-2.6 627) PROTHROMBIN TIME/[id number] 06:54:00 Test Item Value Reference Range Interpretation Comments PROTIME (BEAKER) (test code = 37.2 seconds 11.7-14.7 H 759) INR (BEAKER) (test code = 370) 3.8 <=5.9 RECOMMENDED COUMADIN/WARFARIN INR THERAPY RANGESSTANDARD DOSE: 2.0 - 3.0 Includes: PROPHYLAXIS forvenous thrombosis, systemic embolization; TREATMENT for venous thrombosis and/or pulmonary embolus.HIGH RISK: Target INR is 2.5-3.5 for patients with mechanical heart valves.POCT-GLUCOSE [id number] 05:17:00 Test Item Value Reference Range Interpretation Comments POC-GLUCOSE METER 91 mg/dL 70-110 Notified Kamari Sultana MD/TESTED AT ([facility]) (test code = [address] 1538) [facility] 7703 0 POCT-GLUCOSE [id number] 23:24:00 Test Item Value Reference Range Interpretation Comments POC-GLUCOSE METER 135 mg/dL 70-110 H TESTED AT [place] [address] ([facility]) (test code = CHACHA Benites [facility] 1538) [address] POCT-GLUCOSE [id number] 18:33:00 Test Item Value Reference Range Interpretation Comments POC-GLUCOSE METER 118 mg/dL 70-110 H Notified Kamari Sultana MD/TESTED ([facility]) (test code = AT [place] [address]) [facility] 7703 0 POCT-LACTIC ACID, [id number] 14:32:00 Test Item Value Reference Range Interpretation Comments POC-LACTIC ACID, 0.9 mmol/L 0.9-1.7 TESTED AT [place] [address] VENOUS ([facility]) (test [facility] code = 2805) [address] PROTHROMBIN [id number] 14:17:00 Test Item Value Reference Range Interpretation Comments PROTIME ([facility]) (test code = 33.4 seconds 11.7-14.7 H 759) INR ([facility]) (test code = 370) 3.3 <=5.9 RECOMMENDED COUMADIN/WARFARIN INR THERAPY RANGESSTANDARD DOSE: 2.0 - 3.0 Includes: PROPHYLAXIS forvenous thrombosis, systemic embolization; TREATMENT for venous thrombosis and/or pulmonary embolus.HIGH RISK: Target INR is 2.5-3.5 for patients with mechanical heart valves.[id number] 14:05:00 Test Item Value Reference Range Interpretation Comments HEMOGLOBIN ([facility]) (test code = 7.9 GM/DL 13.7-17.5 L 410) POCT-GLUCOSE [id number] 12:15:00 Test Item Value Reference Range Interpretation Comments POC-GLUCOSE METER 104 mg/dL 70-110 Notified Kamari Sultana MD/TESTED ([facility]) (test code = AT [address] 153) [facility] 7703 [address] BLOOD GAS, [id number] 11:39:00 Test Item Value Reference Range Interpretation [...] (test code = 1819) 32.0 % PROTHROMBIN TIME/[id number] 11:38:00 Test Item Value Reference Range Interpretation [...] DIALYSIS PATIEN TS. RAD, ABDOMEN/KUB, 1 VIEW [id number] 06:59:00Reason for exam:->abd distensionFINAL REPORT RAD, ABDOMEN/KUB, [...] obstruction. Right pleural effusion. Signed: Ilda Ma Verified Date/Time: 03/21/2018 06:59:51 Reading Location: [address] Neuro Reading Room RAD, CHEST, 1 VIEW, NON [id number] 06:53:00Reason for exam:->tachypneaShould this be performed at the bedside?->YesFINAL REPORT RAD, CHEST, 1 VIEW, NON DEPT INDICATION: tachypnea COMPARISON: March 19, 2018 FINDINGS: Portable frontal view of the chest. IMPRESSION: Support Lines: Stable. Lungs and pleura: Increased right pleural effusion, bilateral interstitial opacities and bibasilar atelectasis. No pneumothorax.Heart and mediastinum: Stable contours. Stable surgical changes.Additionalfindings: None. Signed: Ilda Ma Verified Date/Time: 03/21/2018 06:53:46 Reading Location: [address] Neuro Reading Room POCT-GLUCOSE [id number] 05:17:00 Test Item Value Reference Range Interpretation Comments POC-GLUCOSE METER 102 mg/dL 70-[address] [facility] 6720 ([facility]) (test code = [facility] Kamari [facility] 1538) [address] POCT-LACTIC ACID, [id number] 04:57:00 Test Item Value Reference Range Interpretation Comments POC-LACTIC ACID, 0.7 mmol/L 0.9-1.7 L TESTED AT [facility] 6720 VENOUS ([facility]) (test [facility] Kamari [facility] code = 2805) [address] [id number] 04:55:00 Test Item Value Reference Range Interpretation Comments PHOSPHORUS (BEAKER) (test code = 2.0 mg/dL 2.3-4.7 L 604) [id number] 04:55:00 Test Item Value Reference Range Interpretation Comments MAGNESIUM (BEAKER) (test code = 1.8 mg/dL 1.6-2.6 627) PROTHROMBIN [id number] 04:50:00 Test Item Value Reference Range Interpretation Comments PROTIME (BEAKER) (test code = 35.1 seconds 11.7-14.7 H 759) INR (BEAKER) (test code = 370) 3.5 <=5.9 RECOMMENDED COUMADIN/WARFARIN INR THERAPY RANGESSTANDARD DOSE: 2.0 - 3.0 Includes: PROPHYLAXIS forvenous thrombosis, systemic embolization; TREATMENT for venous thrombosis and/or pulmonary embolus.HIGH RISK: Target INR is 2.5-3.5 for patients with mechanical heart valves.BLOOD GAS, [id number] 00:31:00 Test Item Value Reference Range Interpretation [...] code = 1819) 21.0 % BASIC METABOLIC [id number] 23:47:00 Test Item Value Reference Range Interpretation [...] NOT APPLICABLE FOR DIALYSIS PATIEN TS. PROTHROMBIN TIME/[id number] 23:28:00 Test Item Value Reference Range Interpretation [...] PERCENT (BEAKER) (test code = 2801) PROTHROMBIN TIME/[id number] 21:16:00 Test Item Value Reference Range Interpretation [...] METER 150 mg/dL 70-[address] [facility] 6720 ([facility]) (test code = CHACHA [place] 1538) [address] LACTIC ACID, VENOUS, WHOLE [id number] 13:15:00 Test Item Value Reference Range Interpretation Comments LACTATE BLOOD VENOUS (2) (BEAKER) 1.1 mmol/L 0.5-2.2 (test code = 2872) PROTHROMBIN TIME/[id number] 12:55:00 Test Item Value Reference Range Interpretation Comments PROTIME ([facility] (test code = 34.7 seconds 11.7-14.7 H 759) INR ([facility]) (test code = 370) 3.5 <=5.9 RECOMMENDED COUMADIN/WARFARIN INR THERAPY RANGESSTANDARD DOSE: 2.0 - 3.0 Includes: PROPHYLAXIS forvenous thrombosis, systemic embolization; TREATMENT for venous thrombosis and/or pulmonary embolus.HIGH RISK: Target INR is 2.5-3.5 for patients with mechanical heart valves.POCT-GLUCOSE [id number] 12:46:00 Test Item Value Reference Range Interpretation Comments POC-GLUCOSE METER 127 mg/dL 70-110 H TESTED AT [place] [address] ([facility]) (test code = CHACHA [place] 1538) [address] LACTIC ACID, VENOUS, WHOLE [id number] 09:11:00 Test Item Value Reference Range Interpretation Comments LACTATE BLOOD VENOUS (2) ([facility]) 1.2 mmol/L 0.5-2.2 (test code = 2872) POCT-GLUCOSE [id number] 08:34:00 Test Item Value Reference Range Interpretation Comments POC-GLUCOSE METER 128 mg/dL 70-110 H TESTED AT [place] [address] ([facility]) (test code = CHACHA [place] 1538) [address] CBC W/PLT COUNT & AUTO [id number] 06:51:00 Test Item Value Reference Range Interpretation Comments WHITE BLOOD CELL COUNT ([facility]) 12.1 K/ L 3.5-10.5 H (test code = 775) RED BLOOD CELL COUNT ([facility]) 2.92 M/ L 4.63-6.08 L (test code = 761) HEMOGLOBIN (AKER) (test code = 9.4 GM/DL 13.7-17.5 L 410) HEMATOCRIT ([facility]) (test code = 30.0 % 40.1-51.0 L 411) MEAN CORPUSCULAR VOLUME ([facility]) 102.7 fL 79.0-92.2 H (test code = [...] 3438) Received comment: User comments: Slide comments:POCT-GLUCOSE [id number] 06:38:00 Test Item Value Reference Range Interpretation Comments POC-GLUCOSE METER 110 mg/dL 70-[address] [facility] 6720 (BEAKER) (test code = CHACHA [place] 1538) [address] [id number] 05:30:00 Test Item Value Reference Range Interpretation Comments PHOSPHORUS (BEAKER) (test code = 1.9 mg/dL 2.3-4.7 L 604) [id number] 05:30:00 Test Item Value Reference Range Interpretation Comments MAGNESIUM (BEAKER) (test code = 2.0 mg/dL 1.6-2.6 627) LACTIC ACID, VENOUS, WHOLE [id number] 04:19:00 Test Item Value Reference Range Interpretation Comments LACTATE BLOOD VENOUS (2) (BEAKER) 1.3 mmol/L 0.5-2.2 (test code = 2872) PROTHROMBIN [id number] 04:00:00 Test Item Value Reference Range Interpretation Comments PROTIME (BEAKER) (test code = 33.3 seconds 11.7-14.7 H 759) INR (BEAKER) (test code = 370) 3.3 <=5.9 RECOMMENDED COUMADIN/WARFARIN INR THERAPY RANGESSTANDARD DOSE: 2.0 - 3.0 Includes: PROPHYLAXIS forvenous thrombosis, systemic embolization; TREATMENT for venous thrombosis and/or pulmonary embolus.HIGH RISK: Target INR is 2.5-3.5 for patients with mechanical heart valves.LACTIC ACID, VENOUS, WHOLE [id number] 02:24:00 Test Item Value Reference Range Interpretation Comments LACTATE BLOOD VENOUS (2) (BEAKER) 1.1 mmol/L 0.5-2.2 (test code = 2872) POCT-GLUCOSE [id number] 00:24:00 Test Item Value Reference Range Interpretation Comments POC-GLUCOSE METER 88 mg/dL 70-[address] [facility] 6720 ([facility] (test code = CHACHA Benites [facility] [address] 1538) CBC W/PLT COUNT & AUTO [id number] 22:44:00 Test Item Value Reference Range Interpretation [...] = 3438) Received comment: User comments: Slide comments:[id number] 22:34:00 Test Item Value Reference Range Interpretation Comments PHOSPHORUS (BEAKER) (test code = 2.5 mg/dL 2.3-4.7 604) [id number] 22:34:00 Test Item Value Reference Range Interpretation Comments MAGNESIUM (BEAKER) (test code = 2.1 mg/dL 1.6-2.6 627) COMPREHENSIVE METABOLIC [id number] 22:34:00 Test Item Value Reference Range Interpretation [...] DIALYSIS PATIEN TS. LACTIC ACID, VENOUS, WHOLE [id number] 22:22:00 Test Item Value Reference Range Interpretation Comments LACTATE BLOOD VENOUS 0.9 mmol/L 0.5-2.2 Specime n slightly (2) (BEAKER) (test hemolyzed code = 2872) [id number] 22:19:00 Test Item Value Reference Range Interpretation [...] mechanical heart valves.RAD, CHEST, 1 VIEW, NON [id number] 22:15:00Reason for exam:->postopShould this be performed at [...] Spear MDReportVerified Date/Time: 03/19/2018 22:15:19 Reading Location: [facility] Diagnostic Imaging Reading Room - [place] [address] PROTHROMBIN TIME/[id number] 16:40:00 Test Item Value Reference Range Interpretation Comments PROTIME (BEAKER) (test code = 25.9 seconds 11.7-14.7 H 759) INR (BEAKER) (test code = 370) 2.4 <=5.9 RECOMMENDED COUMADIN/WARFARIN INR THERAPY RANGESSTANDARD DOSE: 2.0 - 3.0 Includes: PROPHYLAXIS forvenous thrombosis, systemic embolization; TREATMENT for venous thrombosis and/or pulmonary embolus.HIGH RISK: Target INR is 2.5-3.5 for patients with mechanical heart valves.CALCIUM, [id number] 16:01:00 Test Item Value Reference Range Interpretation Comments CALCIUM IONIZED (BEAKER) (test 1.09 mmol/L 1.12-1.27 L code = 698) PH, BLOOD (BEAKER) (test code = 7.44 1810) HEMATOCRIT-STAT [id number] 16:01:00 Test Item Value Reference Range Interpretation Comments HEMATOCRIT (BEAKER) (test code = 411) 29.0 % 40.0-50.0 L HEMOGLOBIN-STAT [id number] 16:01:00 Test Item Value Reference Range Interpretation Comments HEMOGLOBIN (BEAKER) (test code = 9.7 g/dL 13.0-16.8 L 410) POTASSIUM-STAT [id number] 16:01:00 Test Item Value Reference Range Interpretation Comments POTASSIUM (BEAKER) (test code = 3.2 meq/L 3.6-5.5 L 379) HGB/HCT (H&H) - STAT [id number] 16:01:00 Test Item Value Reference Range Interpretation Comments HEMOGLOBIN (BEAKER) (test code = 9.7 GM/DL 13.0-16.8 L 410) HEMATOCRIT (BEAKER) (test code = 29.0 % 40.0-50.0 L 411) BLOOD GAS, [id number] 16:00:00 Test Item Value Reference Range Interpretation [...] (BEAKER) (test 37.0 C code = 1818) GLUCOSE-STAT [id number] 16:00:00 Test Item Value Reference Range Interpretation Comments GLUCOSE RANDOM (BEAKER) (test code = 96 mg/dL 70-110 652) SODIUM NA-STAT [id number] 16:00:00 Test Item Value Reference Range Interpretation Comments SODIUM (BEAKER) (test code = 381) 138 meq/L 135-148 PROTHROMBIN TIME/[id number] 10:50:00 Test Item Value Reference Range Interpretation Comments PROTIME (BEAKER) (test code = 29.5 seconds 11.7-14.7 H 759) INR (BEAKER) (test code = 370) 2.8 <=5.9 RECOMMENDED COUMADIN/WARFARIN INR THERAPY RANGESSTANDARD DOSE: 2.0 - 3.0 Includes: PROPHYLAXIS forvenous thrombosis, systemic embolization; TREATMENT for venous thrombosis and/or pulmonary embolus.HIGH RISK: Target INR is 2.5-3.5 for patients with mechanical heart valves.CT, BRAIN, WITHOUT [id number] 10:45:00FINAL REPORT CT, BRAIN, WITHOUT CONTRAST INDICATION: [...] MDReport Verified Date/Time: 03/19/2018 10:45:14 Reading Location: [address] Neuro Reading Room HROMBIN TIME/[id number] 06:27:00 Test Item Value Reference Range Interpretation Comments PROTIME (BEAKER) (test code = 34.3 seconds 11.7-14.7 H 759) INR (BEAKER) (test code = 370) 3.4 <=5.9 RECOMMENDED COUMADIN/WARFARIN INR THERAPY RANGESSTANDARD DOSE: 2.0 - 3.0 Includes: PROPHYLAXIS forvenous thrombosis, systemic embolization; TREATMENT for venous thrombosis and/or pulmonary embolus.HIGH RISK: Target INR is 2.5-3.5 for patients with mechanical heart valves.PT/[id number] 01:58:00 Test Item Value Reference Range Interpretation [...] 2.5-3.5 for patients with mechanical heart valves.PROTHROMBIN TIME/[id number] 01:56:00 Test Item Value Reference Range Interpretation Comments PROTIME (BEAKER) (test code = 33.1 seconds 11.7-14.7 H 759) INR (BEAKER) (test code = 370) 3.2 <=5.9 RECOMMENDED COUMADIN/WARFARIN INR THERAPY RANGESSTANDARD DOSE: 2.0 - 3.0 Includes: PROPHYLAXIS forvenous thrombosis, systemic embolization; TREATMENT for venous thrombosis and/or pulmonary embolus.HIGH RISK: Target INR is 2.5-3.5 for patients with mechanical heart valves.[id number] 01:50:00 Test Item Value Reference Range Interpretation Comments PHOSPHORUS (BEAKER) (test code = 1.9 mg/dL 2.3-4.7 L 604) [id number] 01:50:00 Test Item Value Reference Range Interpretation Comments MAGNESIUM (BEAKER) (test code = 2.3 mg/dL 1.6-2.6 627) BASIC METABOLIC [id number] 01:50:00 Test Item Value Reference Range Interpretation [...] APPLICABLE FOR DIALYSIS PATIEN TS. HEPATIC FUNCTION [id number] 01:50:00 Test Item Value Reference Range Interpretation [...] 0-0 (BEAKER) (test code = 413) PROTHROMBIN [id number] 22:29:00 Test Item Value Reference Range Interpretation Comments PROTIME (BEAKER) (test code = 37.7 seconds 11.7-14.7 H 759) INR (BEAKER) (test code = 370) 3.8 <=5.9 RECOMMENDED COUMADIN/WARFARIN INR THERAPY RANGESSTANDARD DOSE: 2.0 - 3.0 Includes: PROPHYLAXIS forvenous thrombosis, systemic embolization; TREATMENT for venous thrombosis and/or pulmonary embolus.HIGH RISK: Target INR is 2.5-3.5 for patients with mechanical heart valves.[id number] 08:02:00 Test Item Value Reference Range Interpretation Comments TRANSFERRIN (BEAKER) (test code = 132 mg/dL 174-382 L 541) [id number] 08:02:00 Test Item Value Reference Range Interpretation Comments PREALBUMIN (BEAKER) (test code = 586) 7 mg/dL 14-45 L [id number] 07:23:00 Test Item Value Reference Range Interpretation Comments MAGNESIUM (BEAKER) (test code = 2.4 mg/dL 1.6-2.6 627) BASIC METABOLIC [id number] 07:23:00 Test Item Value Reference Range Interpretation [...] APPLICABLE FOR DIALYSIS PATIEN TS. HEPATIC FUNCTION [id number] 07:23:00 Test Item Value Reference Range Interpretation [...] (test code = 48 U/L 6-55 347) [id number] 07:22:00 Test Item Value Reference Range Interpretation Comments PHOSPHORUS (BEAKER) (test code = 2.3 mg/dL 2.3-4.7 604) [id number] 07:02:00 Test Item Value Reference Range Interpretation [...] 2.5-3.5 for patients with mechanical heart valves.PROTHROMBIN TIME/[id number] 06:59:00 Test Item Value Reference Range Interpretation [...] (BEAKER) (test code = 413) U/S, ABDOMINAL, [id number] 01:42:00Right upper quadrant, Assess Liver with ultrasoundAbdomen [...] MDReport Verified Date/Time: 03/18/2018 01:42:08 Reading Location: [facility] C013V Neuro Reading Room Electronicallysigned by: ILDA MA [...] 1584) SOURCE(BEAKER) (test code = Urine, Voided 1794) [id number] 23:39:00 Test Item Value Reference Range Interpretation Comments MAGNESIUM (BEAKER) 2.3 mg/dL 1.6-2.6 Specimen slightly (test code = 627) hemolyzed [id number] 23:39:00 Test Item Value Reference Range Interpretation Comments PHOSPHORUS (BEAKER) 2.2 mg/dL 2.3-4.7 L Specimen slightly (test code = 604) hemolyzed BASIC METABOLIC [id number] 23:39:00 Test Item Value Reference Range Interpretation [...] APPLICABLE FOR DIALYSIS PATIEN TS. HEPATIC FUNCTION [id number] 23:39:00 Test Item Value Reference Range Interpretation [...] Specimen slightly (test code = 347) hemolyzed [id number] 23:38:00 Test Item Value Reference Range Interpretation [...] 0-0 (BEAKER) (test code = 413) BLOOD [id number] 17:01:00 Test Item Value Reference Range Interpretation Comments CULTURE (BEAKER) (test No growth in 5 days code = 1095) BLOOD [id number] 17:01:00 Test Item Value Reference Range Interpretation Comments CULTURE (BEAKER) (test No growth in 5 days code = 1095) [id number] 07:54:00 Test Item Value Reference Range Interpretation Comments PARTIAL THROMBOPLASTIN TIME 97.6 seconds 22.5-36.0 H (BEAKER) (test code = 760) While on warfarin.PROTHROMBIN TIME/[id number] 07:52:00 Test Item Value Reference Range Interpretation [...] (BEAKER) (test code = 413) BASIC METABOLIC [id number] 07:29:00 Test Item Value Reference Range Interpretation [...] TO CALCULA TE ESTIMATED GFR. VANCOMYCIN LEVEL, [id number] 23:50:00 Test Item Value Reference Range Interpretation Comments VANCOMYCIN TROUGH (BEAKER) (test 15.4 ug/mL 10.0-20.0 code = 522) EEG MONITORING WITH VIDEO RECORDING EACH 24 [id number] 15:03:00Date(s) of EE02/14/18; 02/15/18 DATE OF REPORT: 02/15/18 ACC: [id number] EEG Number: [id number] Test Location: Floor 2431 Start time: 02/14/18 at 1711 Stop time: 02/15/18 at 1403 ICD-10: [id number] CPT Code: R41.82 HISTORY: 67 year old [...] Fellow Jackson Mosley MD PhD [facility]ending [id number] 07:57:00 Test Item Value Reference Range Interpretation Comments PARTIAL THROMBOPLASTIN TIME 79.9 seconds 22.5-36.0 H (BEAKER) (test code = 760) BASIC METABOLIC [id number] 05:44:00 Test Item Value Reference Range Interpretation [...] DATA TO CALCULA TE ESTIMATED GFR. PROTHROMBIN [id number] 05:16:00 Test Item Value Reference Range Interpretation [...] WBC 0-0 (BEAKER) (test code = 413) [id number] 02:06:00 Test Item Value Reference Range Interpretation Comments PARTIAL THROMBOPLASTIN TIME 74.3 seconds 22.5-36.0 H (AMADOR) (test code = 760) RAD, ABDOMEN/KUB, 1 VIEW [id number] 21:56:00Reason for exam:->constipation FINAL REPORT CLINICAL HISTORY: [...] and pelvis. Normal osseous structures. Signed: Nikkie Escobar MDReport Verified Date/Time: 02/14/2018 21:56:57 ReadingLocation: [facility] B1 C013T Transitional Reading Room EEG AWAKE AND [id number] 20:02:00Reason for exam:->episodes of fluctuating mentationReason for exam:->Please perform a continous studyDate(s) of EE02/14/18 DATE OF REPORT: 02/14/18 ACC: [id number] EEG Number: [id number] Test Location: Inpatient ICU Start time: 1645 Stop time: 1951 ICD-10: [id number] CPT Code: G40.909 HISTORY: 67 year old [...] MD Neurophysiology Fellow Jagruti Russo Attending Neurophysiologist [facility] [id number] 19:17:00 Test Item Value Reference Range Interpretation Comments PARTIAL THROMBOPLASTIN TIME 57.2 seconds 22.5-36.0 H (BEAKER) (test code = 760) URINALYSIS W/ REFLEX URINE [id number] 17:40:00 Test Item Value Reference Range Interpretation [...] (test code = 2795) MR, BRAIN, WITHOUT [id number] 12:31:00Has mechanical AV, uncertain if patient can [...] No acute intracranial abnorma lity. Signed: Abdi Mgeport Verified Date/Time: 02/14/2018 12:31:11 Reading Location: [address] Neuro Reading Room [id number] 10:56:00 Test Item Value Reference Range Interpretation Comments PARTIAL THROMBOPLASTIN TIME 69.2 seconds 22.5-36.0 H (BEAKER) (test code = 760) BASIC METABOLIC [id number] 04:48:00 Test Item Value Reference Range Interpretation [...] m DATA TO CALCULA TE ESTIMATED GFR. [id number] 04:44:00 Test Item Value Reference Range Interpretation Comments PARTIAL THROMBOPLASTIN TIME 105.1 seconds 22.5-36.0 H (BEAKER) (test code = 760) While on warfarin.PROTHROMBIN TIME/[id number] 04:41:00 Test Item Value Reference Range Interpretation [...] WBC 0-0 (BEAKER) (test code = 413) [id number] 03:18:00 Test Item Value Reference Range Interpretation Comments RPR SCREEN (BEAKER) (test code = Nonreactive Nonreactive 420) [id number] 18:49:00 Test Item Value Reference Range Interpretation Comments PARTIAL THROMBOPLASTIN TIME 70.7 seconds 22.5-36.0 H (BEAKER) (test code = 760) CT, BRAIN, WITHOUT [id number] 13:33:00FINAL REPORT CT head without contrast 02/13/2018 [...] Abdi Mg VerifiedDate/Time: 02/13/2018 13:33:21 Reading Location: [address] Neuro Reading Room [id number] 13:28:00 Test Item Value Reference Range Interpretation Comments PARTIAL THROMBOPLASTIN TIME 69.2 seconds 22.5-36.0 H (BEAKER) (test code = 760) VITAMIN B12 AND [id number] 09:14:00 Test Item Value Reference Range Interpretation Comments VITAMIN B12 (BEAKER) (test code = > pg/mL 213-816 H 774) FOLATE (BEAKER) (test code = 362) 4.8 ng/mL >=7.0 L T4, [id number] 09:13:00 Test Item Value Reference Range Interpretation Comments FREE T4 (BEAKER) (test code = 655) 0.94 ng/dL 0.70-1.48 TSH/FREE T4 IF [id number] 08:18:00 Test Item Value Reference Range Interpretation Comments THYROID STIMULATING HORMONE 9.92 uIU/mL 0.35-4.94 H (BEAKER) (test code = 772) HEMOGLOBIN [id number] 08:06:00 Test Item Value Reference Range Interpretation Comments HEMOGLOBIN A1C (BEAKER) (test code = 5.6 % 4.3-6.1 368) [id number] 06:57:00 Test Item Value Reference Range Interpretation Comments PARTIAL THROMBOPLASTIN TIME 62.5 seconds 22.5-36.0 H (BEAKER) (test code = 760) BASIC METABOLIC [id number] 06:04:00 Test Item Value Reference Range Interpretation [...] WBC 0-0 (BEAKER) (test code = 413) [id number] 05:01:00 Test Item Value Reference Range Interpretation Comments PARTIAL THROMBOPLASTIN TIME 129.9 seconds 22.5-36.0 H (BEAKER) (test code = 760) While on warfarin.PROTHROMBIN [id number] 04:58:00 Test Item Value Reference Range Interpretation Comments PROTIME (BEAKER) (test code = 18.2 seconds 11.7-14.7 H 759) INR (BEAKER) (test code = 370) 1.5 <=5.9 RECOMMENDED COUMADIN/WARFARIN INR THERAPY RANGESSTANDARD DOSE: 2.0 - 3.0 Includes: PROPHYLAXIS forvenous thrombosis, systemic embolization; TREATMENT for venous thrombosis and/or pulmonary embolus.HIGH RISK: Target INR is 2.5-3.5 for patients with mechanical heart valves.While on warfarin.LIPID [id number] 21:59:00 Test Item Value Reference Range Interpretation [...] 100-129 Borderline 130-159 High 160-189 Very High >=[id number] 21:47:00 Test Item Value Reference Range Interpretation Comments PARTIAL THROMBOPLASTIN TIME 75.6 seconds 22.5-36.0 H (BEAKER) (test code = 760) HEMOGLOBIN AND [id number] 21:38:00 Test Item Value Reference Range Interpretation Comments HEMOGLOBIN (BEAKER) (test code = 8.6 GM/DL 13.7-17.5 L 410) HEMATOCRIT (BEAKER) (test code = 28.0 % 40.1-51.0 L 411) CT, CTANGIO [id number] 18:19:00FINAL REPORT CTA carotids and brain 02/12/2018 [...] small volume pleural effusions. Signed: Abdi Mg Verified Date/Time: 02/12/2018 18:19:07 Reading Location: [facility] Reading Room CT, CAROTID, [id number] 18:19:00FINAL REPORT CTA carotids and brain 02/12/2018 [...] small volume pleural effusions. Signed: Abdi Mg Verified Date/Time: 02/12/2018 18:19:07 Reading Location: [facility] Reading Room BASI METABOLIC [id number] 15:37:00 Test Item Value Reference Range Interpretation [...] m DATA TO CALCULA TE ESTIMATED GFR. [id number] 15:07:00 Test Item Value Reference Range Interpretation Comments PARTIAL THROMBOPLASTIN TIME 77.4 seconds 22.5-36.0 H (BEAKER) (test code = 760) HEMOGLOBIN AND [id number] 14:59:00 Test Item Value Reference Range Interpretation Comments HEMOGLOBIN (BEAKER) (test code = 8.7 GM/DL 13.7-17.5 L 410) HEMATOCRIT (BEAKER) (test code = 27.7 % 40.1-51.0 L 411) POCT-GLUCOSE [id number] 12:31:00 Test Item Value Reference Range Interpretation Comments POC-GLUCOSE METER 118 mg/dL 70-[address] [facility] [address] ([facility]) (test code = [place] 1538) [address] CT, BRAIN/STROKE [id number] 12:24:00FINAL REPORT CT head without contrast INDICATION: [...] housestaff at 12:20 PM Signed: Dashawn Hamilton MDReport Verified Date/Time: 02/12/2018 12:24:12 Reading Location: [facility] Reading Room [id number] 07:08:00 Test Item Value Reference Range Interpretation Comments PARTIAL THROMBOPLASTIN TIME 119.2 seconds 22.5-36.0 H (BEAKER) (test code = 760) While on warfarin.PROTHROMBIN [id number] 06:53:00 Test Item Value Reference Range Interpretation Comments PROTIME (BEAKER) (test code = 17.0 seconds 11.7-14.7 H 759) INR (BEAKER) (test code = 370) 1.4 <=5.9 RECOMMENDED COUMADIN/WARFARIN INR THERAPY RANGESSTANDARD DOSE: 2.0 - 3.0 Includes: PROPHYLAXIS forvenous thrombosis, systemic embolization; TREATMENT for venous thrombosis and/or pulmonary embolus.HIGH RISK: Target INR is 2.5-3.5 for patients with mechanical heart valves.While on warfarin.HEMOGLOBIN AND [id number] 06:47:00 Test Item Value Reference Range Interpretation Comments HEMOGLOBIN (BEAKER) (test code = 8.4 GM/DL 13.7-17.5 L 410) HEMATOCRIT (BEAKER) (test code = 26.9 % 40.1-51.0 L 411) Baseline and daily starting prior to initiation of heparin [facility]2018-02-12 06:47:00 Test Item Value Reference [...] WBC 0-0 (BEAKER) (test code = 413) [id number] 23:21:00 Test Item Value Reference Range Interpretation Comments PARTIAL THROMBOPLASTIN TIME 55.4 seconds 22.5-36.0 H (BEAKER) (test code = 760) HEMOGLOBIN AND [id number] 22:51:00 Test Item Value Reference Range Interpretation Comments HEMOGLOBIN (BEAKER) (test code = 8.8 GM/DL 13.7-17.5 L 410) HEMATOCRIT (BEAKER) (test code = 29.5 % 40.1-51.0 L 411) POCT-GLUCOSE [id number] 17:14:00 Test Item Value Reference Range Interpretation Comments POC-GLUCOSE METER 128 mg/dL 70-[address] [facility] [address] (BEAKER) (test code = [place] 1538) [address] [id number] 15:48:00 Test Item Value Reference Range Interpretation Comments PARTIAL THROMBOPLASTIN TIME 33.7 seconds 22.5-36.0 (AMADOR) (test code = 760) Prior to initiating heparinHEMOGLOBIN AND [id number] 13:58:00 Test Item Value Reference Range Interpretation Comments HEMOGLOBIN ([facility]) (test code = 8.5 GM/DL 13.7-17.5 L 410) HEMATOCRIT ([facility]) (test code = 26.6 % 40.1-51.0 L 411) POCT-GLUCOSE [id number] 12:17:00 Test Item Value Reference Range Interpretation Comments POC-GLUCOSE METER 124 mg/dL 70-110 H TESTED AT [place] [id number] [facility] (test code = [place] 1538) [address] RAD, CHEST, 1 VIEW, NON [id number] 07:19:00Reason for exam:->hypoxia; eval for perforated viscusShould [...] Signed: JR Muñoz RobertMDReport Verified Date/Time: 02/11/2018 07:19:35 Reading Location: [address] Neuro Reading Room RAD, ABDOMEN/KUB, 1 VIEW [id number] 07:18:00Reason for exam:->eval for perforated viscusShould this [...] Robert MDReport Verified Date/Time: 02/11/2018 07:18:28 Reading Location: [address] Neuro Reading [facility] 2018-02-11 06:09:00 Test Item Value [...] DATA T O CALCULATE ESTIM ATED GFR. [id number] 06:07:00 Test Item Value Reference Range Interpretation Comments PHOSPHORUS (BEAKER) (test code = 3.3 mg/dL 2.3-4.7 604) [id number] 06:07:00 Test Item Value Reference Range Interpretation Comments MAGNESIUM (BEAKER) (test code = 1.8 mg/dL 1.6-2.6 627) PROTHROMBIN [id number] 05:46:00 Test Item Value Reference Range Interpretation [...] 0-1 H PERCENT (BEAKER) (test code = 9844)
== END 2021-02-05 14:00 | disposition home or self-care (01) ==
LOC: ER 06:27 → ERHOLD 08:59
PROVIDERS: ADMIT Family Medicine; ATTEND Family Medicine
DX: R07.9 Chest pain, unspecified (principal); I10 Essential (primary) hypertension; G40.909 Epilepsy, unspecified, not intractable, without status epilepticus; E78.5 Hyperlipidemia, unspecified; E03.9 Hypothyroidism, unspecified; Z95.2 Presence of prosthetic heart valve; Z79.01 Long term (current) use of anticoagulants; Z20.822 Contact with and (suspected) exposure to COVID-19
CPT/HCPCS: 96365; 93005 ×2; 85025; 80048; 36415; 80320; 83735; 82550; 85610; 80061; 85379; 80076; 84443; 81003; 84484 ×2; 82553; 84439; 83690; 83880; 80307; 71045; 96375; 99284; U0003; J3475; G0378 ×2

== ENCOUNTER 2021-07-02 12:14 | Emergency (ER) | payer OTHER ==
--- OUTSIDE RECORDS SUMMARY | 2021-07-02 12:22 | XMS REPORT | Continuity of Care Document ---
:1950 Author Organization [facility] t Address [address] [place] [address] Care Team Providers Name Role Phone Kelsey Primary Care Physician Kelsey Attending Clinician Unavailable COLLEEN AGUILAR Attending Clinician Unavailable CARMEN Attending Clinician Unavailable ROSITA Attending Clinician Unavailable Oxana WESTON Attending Clinician Rosita WESTON, PhD Attending Clinician Sandi WESTON, M. Attending Clinician Lillian POSADAS Attending Clinician Unavailable WOO LAUREANO Attending Clinician Unavailable PORSHA Attending Clinician Unavailable COLLEEN AGUILAR Admitting Clinician Unavailable CARMEN Admitting Clinician Unavailable LIZZY SEVERINO Admitting Clinician Unavailable Lillian POSADAS Admitting Clinician Unavailable WOO LAUREANO Admitting Clinician Unavailable PORSHA Admitting Clinician Unavailable Payers Payer Name Policy Type Policy Number Effective Date Expiration Date S marco AETNA MEDICARE [id number] 2017 2019 HMO POS 00:00:00 00:00:00 [facility] [id number] 2019 2019 HORIZONS 00:00:00 00:00:00 CARE IMPROVEMENT [id number] 2019 PLUS 00:00:00 [facility] [id number] PPO [facility] MEDICARE PART A [id number] \\T\\ B - MEDICARE MEDICARE PLAN PPO [id number] - AETNA PPO/EPO - BCBS [id number] 2012 00:00:[address] [facility] [id number] 2020 Univers ity of MEDICARE 00:00:00 [place] [facility] ADVANTAGEUHC Branch MEDICARE COMPLETE [id number] 03/2020-PresentMed icare Adv PPO Problems Condition Condition Condition Status Onset Resolution Last Treating Co mments Source Name Details Category Date Date Treatment Clinician Date Obstructiv Obstructiv Disease Active B madiha e sleep e sleep 07-04 [place] apnea apnea 00:00: of syndrome syndrome 00 Medici n e Chronic Chronic Disease Active 2017-03 [facility] diastolic diastolic 2-21 [facility] heart heart 00:00: of failure failure 00 Medicin (HCCode) (HCCode) e 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 03-30 Colleg e with with 00:00: of impairment impairment 00 Me dicin of of e consciousn consciousn ess, ess, intractabl intractabl e (HCCode) e (HCCode) No known No known Disease Unive rs active active ity of problems problems [facility] Allergies, Adverse Reactions, Alerts Allergy Allergy Status Severity Reaction(s) Onset Inactive Treating Comm ents Source Name Type Date Date Clinician Levetira Propensi Active Unknown - Uni vers cetam ty to See comments 3-22 ity of adverse 00:00: [place] reaction 00 Medical s Branch ASPIRIN Allergy Active Hives 2019-[address] [facility] LEVETIRA Allergy Active 2019-[address] [facility] [address] CETAM 2-10 [facility] ASPIRIN Allergy Active 2017-03 [facility] 04-13 00:00: 00 LEVETIRA Allergy Active Med Other 2017-03 [facility] CETAM 04-13 00:00: 00 Levetira Propensi Active Moderate 2017-03 unknown [facility] cetam ty to 04-13 College adverse 00:00: of reaction 00 Medicin s to e drug Social History Social Habit Start Date Stop Date Quantity Comments Source Exposure to Not sure University SARS-CoV-2 [place] [facility] (event) Branch Alcohol intake 2020-07-04 2020-07-04 Ex-drinker [facility] 00:00:00 00:00:00 (finding) Medicine Tobacco use and 2020-07-04 2020-07-04 Never used [facility] of exposure 00:00:00 00:00:00 Medicine Tobacco Comment 2009-11-07 2009-11-07 since 1993 [facility] 00:00:00 00:00:00 Medicine Alcohol Comment 2009-11-07 2009-11-07 social [facility] of 00:00:00 00:00:00 Medicine Sex Ass[birth year] At [birth year] [facility] 00:00:00 00:00:00 Medicine Smoking Status Start Date Stop Date Source Unknown if ever smoked [facility] [place] [facility] Former smoker 2020-07-04 00:00:00 2020-07-04 00:00:00 [facility] Medications Ordered Filled Start Stop Current Ordering Indication Dosage Frequency Signature Comments Components Source Medication Medication Date Date Medication? Clinician (SIG) Name Name sildenafiL 2021- Viagra 50 U nivers (VIAGRA) 50 05-07 02-08 mg tablet it y of mg tablet 10:01: 00:00 Take 1 [place] 30 :00 tablet Medical every day Branch by oral route. tadalafiL Yes [id number] 5mg Take 1 Univers (CIALIS) 5 05-07 9102 tablet by ity of mg tablet 00:00: [place] needed for Medical Erectile Branch dysfunctio n (2-3 tablets 2 hrs prior to sexual activity). tadalafiL Yes [id number] 5mg Take 1 Univers (CIALIS) 5 2-08 9102 tablet by ity of mg tablet 00:00: [place] needed for Medical Erectile Branch dysfunctio n (2-3 tablets 2 hrs prior to sexual activity). Ascorbic Yes 1000mg Take 1,000 [facility] Acid 4-05 mg by [place] (VITAMIN C) 19:16: mouth of 1000 MG 46 daily. Medicin TABS e Cholecalcif Yes 5000mg Take 5,000 [facility]ray ([facility] 4-05 mg by [place] D3) 125 MCG 19:16: mouth of (5000 UT) 46 daily. Medicin CAPS e warfarin Yes 3mg Take 3 mg [facility] (COUMADIN) 4-05 by mouth Colle ge 1 MG tablet 19:16: daily. of 46 Medicin e Cyanocobala Yes 3000mg Take 3,000 [facility] min (B-12) 4-05 mg by [place] 3000 MCG 19:16: mouth of CAPS 46 daily. Medicin e lamotrigine Yes [id number] 200mg Take 1 [facility] (LAMICTAL) 4-05 Tablet by [facility] 200 MG 00:00: mouth of tablet 00 every Medicin evening. e lamotrigine 2020- No [id number] TAKE 1 [facility] (LAMICTAL) 3-31 04-05 TABLET BY Col lege [...] 3-22 by mouth. ity of tablet 19:56: [place] 57 Medical Branch warfarin 1 Yes warfarin 1 U nivers mg tablet 3-22 mg tablet ity o f 19:56: 2 mg on [place] 57 M,W,F and Medical 1 mg on Branch T,T, S and S loratadine Yes 10mg Take 10 mg U nivers 10 mg 3-22 by mouth. ity of tablet 19:56: [address] sildenafiL Yes Viagra 50 Un jacquelyn (VIAGRA) 50 3-22 mg tablet ity of mg tablet 19:56: Take 1 [place] [address] tablet Medical every day Branch by oral route. warfarin 2 Yes 2mg Take 2 mg Un jacquelyn mg tablet 3-22 by mouth. ity o f 19:56: [address] sildenafiL Yes Viagra 50 Un jac[facility]elyn (VIAGRA) 50 3-22 mg tablet ity of mg tablet 19:56: Take 1 [place] [address] tablet Medical every day Branch by oral route. warfarin 2 Yes 2mg Take 2 mg Un jacquelyn mg tablet 3-22 by mouth. ity o f 19:56: [address] amoxicillin Yes amoxicilli Univers 500 mg 3-22 n 500 mg ity of capsule 19:56: capsule [place] 55 TAKE ONE Medical CAPSULE BY Branch MOUTH EVERY 8 HOURS FOR 7 DAYS amoxicillin Yes amoxicilli Univers 500 mg 3-22 n 500 mg ity of capsule 19:56: capsule [place] 55 TAKE ONE Medical CAPSULE BY Branch MOUTH EVERY 8 HOURS FOR 7 DAYS warfarin 1 Yes warfarin 1 U nivers mg tablet 3-22 mg tablet ity o f 14:56: 2 mg on [place] [address] M,W,F and Medical 1 mg on Branch T,T, S and S loratadine Yes 10mg Take 10 mg U nivers 10 mg 3-22 by mouth. ity of tablet 14:56: [address] warfarin 1 Yes warfarin 1 U nivers mg tablet 3-22 mg tablet ity o f 14:56: 2 mg on [place] [address] M,W,F and Medical 1 mg on Branch T,T, S and S loratadine 0 Yes 10mg Take 10 mg U nivers 10 mg 3-22 by mouth. ity of tablet 14:56: [address] warfarin 2 Yes 2mg Take 2 mg Un jacquelyn mg tablet 3-22 by mouth. ity o f 14:56: [address] warfarin 2 2020-0 Yes 2mg Take 2 mg Un jacquelyn mg tablet 3-22 by mouth. ity o f 14:56: [place] [address] Medical Branch amoxicillin 2020-0 Yes amoxicilli Univers 500 mg 3-22 n 500 mg ity of capsule 14:56: capsule [place] 55 TAKE ONE Medical CAPSULE BY Branch MOUTH EVERY 8 HOURS FOR 7 DAYS amoxicillin 2020-0 Yes amoxicilli Univers 500 mg 3-22 n 500 mg ity of capsule 14:56: capsule [place] 55 TAKE ONE Medical CAPSULE BY Branch MOUTH EVERY 8 HOURS FOR 7 DAYS tamsulosin 2020-0 Yes Univers 0.4 mg 24 3-21 ity of hr capsule 00:00: [place] [facility] tamsulosin 2020-0 Yes Univers 0.4 mg 24 3-21 ity of hr capsule 00:00: [place] [facility] tamsulosin 2020-0 Yes Univers 0.4 mg 24 3-21 ity of hr capsule 00:00: [place] [facility] tamsulosin 2020-0 Yes Univers 0.4 mg 24 3-21 ity of hr capsule 00:00: [place] [facility] lamoTRIgine 2020-0 Yes TAKE 1 Univ ers 200 mg 3-09 TABLET BY ity of tablet 00:00: MOUTH [place] [address] EVERY DAY Medical AT NIGHT Branch finasteride 2020-0 Yes TAKE 1 Univ ers 5 mg tablet 3-09 ORAL ity of 00:00: TABLET EVERY Medical EVENING Branch FOR ENLARGED PROSTATE lamoTRIgine 2020-0 Yes TAKE 1 Univ ers 200 mg 3-09 TABLET BY ity of tablet 00:00: MOUTH [place] [address] EVERY DAY Medical AT NIGHT Branch finasteride 2020-0 Yes TAKE 1 Univ ers 5 mg tablet 3-09 ORAL ity of 00:00: TABLET [place] EVERY Medical EVENING Branch FOR ENLARGED PROSTATE finasteride 2020-0 Yes TAKE 1 Univ ers 5 mg tablet 3-09 ORAL ity of 00:00: TABLET [place] [address] EVERY Medical EVENING Branch FOR ENLARGED PROSTATE lamoTRIgine 2020-0 Yes TAKE 1 Univ ers 200 mg 3-09 TABLET BY ity of tablet 00:00: MOUTH [place] [address] EVERY DAY Medical AT NIGHT Branch finasteride 2020-0 Yes TAKE 1 Univ ers 5 mg tablet 3-09 ORAL ity of 00:00: TABLET [place] [address] EVERY Medical EVENING Branch FOR ENLARGED PROSTATE lamoTRIgine 2021-0 Yes TAKE 1 Univ ers 200 mg 3-09 TABLET BY ity of tablet 00:00: MOUTH EVERY DAY Medical AT NIGHT Branch atorvastati 2020-0 Yes 40mg Take 40 [...] ity of tablet 00:00: daily. Medical Branch gabapentin 2020-0 Yes 600mg Take 600 Un jacquelyn 600 mg 2-26 mg by ity of tablet 00:00: mouth (two) Medical times Branch daily. gabapentin 2020-0 Yes 600mg Take 600 Un jacquelyn 600 mg 2-26 mg by ity of tablet 00:00: mouth (two) Medical times Branch daily. gabapentin 2020-0 Yes 600mg Take 600 Un j[place] 600 mg 2-26 mg by ity of tablet 00:00: mouth (two) Medical times Branch daily. gabapentin 2020-0 Yes 600mg Take 600 Un jacquelyn 600 mg 2-26 mg by ity of tablet 00:00: mouth [place] (two) Medical times Branch daily. levothyroxi 2020-0 Yes 100ug Take 100 B [facility] ne 1-22 mcg by College (SYNTHROID) 00:00: mouth of 100 MCG 00 daily. Medicin tablet e levothyroxi 2020-0 Yes 100ug Take 100 U nivers ne 100 mcg 1-22 mcg by ity of tablet 00:00: mouth every Medical morning. Branch levothyroxi 2020-0 Yes 100ug Take 100 U nivers ne 100 mcg 1-22 mcg by ity of tablet 00:00: mouth 00 every Medical morning. Branch levothyroxi 2020-0 Yes 100ug Take 100 U nivers ne 100 mcg 1-22 mcg by ity of tablet 00:00: mouth [place] 00 every Medical morning. Branch levothyroxi 0 Yes 100ug Take 100 U nivers ne 100 mcg 1-22 mcg by ity of tablet 00:00: mouth [place] every Medical morning. Branch valsartan 2019-03 Yes 80mg Take 80 mg Ba ylor [...] ity of tablet 00:00: daily. Medical Branch lamotrigine 2019- Yes [id number] TAKE 1/2 [facility] (LAMICTAL) 2-16 TABLET BY [facility] 100 MG 00:00: MOUTH of tablet DAY Medicin e lamoTRIgine 2019-03 Yes TAKE 1/2 Un jac[facility]elyn 100 mg 2-16 TABLET BY ity of tablet 00:00: MOUTH [place] EVERY DAY Medical Branch lamoTRIgine 2019- Yes TAKE 1/2 Un [facility] 100 mg 2-16 TABLET BY ity of tablet 00:00: MOUTH [place] EVERY DAY Medical Branch lamoTRIgine 2019- Yes TAKE 1/2 Un j[facility] 100 mg 2-16 TABLET BY ity of tablet 00:00: MOUTH [place] EVERY DAY Medical Branch lamoTRIgine 2019- Yes TAKE 1/2 Un j[facility]elyn 100 mg 2-16 TABLET BY ity of tablet 00:00: MOUTH [place] EVERY DAY Medical Branch Lacosamide 2019- Yes [id number] 200mg Take 200 [facility] 200 MG TABS 1-16 mg by College 00:00: mouth two of 00 times Medicin daily. e Lacosamide 2019-03 Yes [id number] 50mg Take 50 mg [facility] 50 MG TABS 1-16 by mouth Colle ge 00:00: two times of 00 daily. Medicin e lamotrigine 2020-0 Yes [id number] TAKE 1 [facility] (LAMICTAL) 9-21 TABLET BY Devi [facility] 150 MG 00:00: MOUTH of tablet 00 EVERY DAY Medicin e warfarin 2020-0 Yes 3mg Take 3 mg [facility] (COUMADIN) 6-25 by mouth Colle ge 1 MG tablet 15:29: daily. of 18 Medicin e Cyanocobala 2020-0 Yes 3000mg Take 3,000 [facility] min (B-12) 6-25 mg by [place] 3000 MCG 15:29: mouth of CAPS 18 daily. Medicin e Ascorbic 2020-0 Yes 1000mg Take 1,000 [facility] Acid 6-25 mg by [place] (VITAMIN C) 15:29: mouth of 1000 MG 18 daily. Medicin TABS e Cholecalcif 2020-0 Yes 5000mg Take 5,000 [facility] ([facility] 6-25 mg by [place] D3) 125 MCG 15:29: mouth of (5000 UT) 18 daily. Medicin CAPS e Lacosamide 2020-0 Yes [id number] 200mg Take 200 [facility] 200 MG TABS 6-23 mg by [place] 00:00: mouth two of 00 times Medicin daily. e Lacosamide 2020-0 Yes [id number] 50mg Take 50 mg [facility] 50 MG TABS 6-23 by mouth Colle ge 00:00: two times of 00 daily. Medicin e lamotrigine 2020-0 Yes [id number] TAKE 1 [facility] (LAMICTAL) 6-23 TABLET BY Devi [facility] 150 MG 00:00: MOUTH of tablet 00 EVERY DAY Medicin e lamotrigine 2020-0 Yes [id number] 200mg Take 1 Tab [facility] (LAMICTAL) 6-23 by mouth Colle ge 200 MG 00:00: nightly. of tablet 00 Medicin e gabapentin 2020-0 Yes 600{tbl Take 600 [facility] (NEURONTIN) 6-14 } Tabs by Colle ge 600 MG 00:00: mouth of tablet 00 daily. Pt Miriamin stated he e ocassionly just take half a tablet but the dosage varies gabapentin 2020-0 Yes 600{tbl Take 600 [facility] (NEURONTIN) 6-14 } Tabs by Colle ge 600 MG 00:00: mouth of tablet 00 daily. Pt Medicin stated he e ocassionly just take half a tablet but the dosage varies meloxicam 2018- Yes 7mg 7 mg. [facility] (MOBIC) 7.5 5-22 College MG tablet 00:00: of Medicin e meloxicam 2018- Yes 7mg 7 mg. [facility] (MOBIC) 7.5 5-22 College MG tablet 00:00: of Medicin e pantoprazol 2018- Yes [id number] 40mg Take 1 Tab [facility] e 4-18 by mouth College (PROTONIX) 00:00: daily. of 40 MG 00 Medicin tablet e pantoprazol Yes [id number] 40mg Take 1 Tab [facility] e 4-18 by mouth College (PROTONIX) 00:00: daily. of 40 MG 00 Medicin tablet e atorvastati 2017-03 Yes 40mg Take 40 mg [facility] n (LIPITOR) 1-20 by mouth [facility]i [facility] 40 MG 00:00: daily. of tablet 00 Medicin e atorvastati 2017-03 Yes 40mg Take 40 mg [facility] n (LIPITOR) 1-20 by mouth [facility] 40 MG 00:00: daily. of tablet 00 Medicin e loratadine Yes 10mg Take 10 mg [facility] (CLARITIN) 6-15 by mouth Colle ge 10 MG 00:00: every of tablet Thursday, Medicin Thursday, e Thursday. loratadine Yes 10mg Take 10 mg [facility] (CLARITIN) 6-15 by mouth Colle ge 10 MG 00:00: every of tablet Thursday, Medicin Thursday, e Thursday. Gabapentin Gabapentin Yes [place] TAKE [address] [facility] TABLET BY [facility] - M[facility]TH [facility] TWICE A l DAY [facility] Loratadine Loratadine Yes David TAKE [address] [facility] [place] TABLET BY [facility] - MOUTH [facility] EVERY DAY l [facility] Atorvastati Atorvastati Yes David TAKE [address] [facility] n Calcium n Calcium [place] TABLET BY [facility] - MOUTH [facility] EVERY DAY l [facility] Lamotrigine Lamotrigine Yes David TAKE [address] [facility] [place] TABLET BY [facility] - MOUTH [facility] EVERY DAY l AT NIGHT [facility] Valsartan Valsartan Yes David TAKE [address] [facility] [place] TABLET BY [facility] - MOUTH [facility] EVERY DAY l [facility] Furosemide Furosemide Yes David TAKE [address] [facility] [place] TABLET BY [facility] - MOUTH [facility] EVERY DAY l [facility] Levothyroxi Levothyroxi Yes David TAKE [address] [facility] ne Sodium ne Sodium [place] TABLET BY [facility] - MOUTH [facility] EVERY DAY l [facility] Pantoprazol Pantoprazol Yes David TAKE [address] [facility] e Sodium e Sodium [place] TABLET BY Khloe kes - MOUTH [facility]oria EVERY DAY l IN THE [facility] MORNING ent Clinics Tramadol Tramadol Yes David (Schedule [facility] HCl HCl [facility] IV Drug) [facility] - TAKE 1 [facility] TABLET BY l MOUTH [facility] THREE ent TIMES A Clinics DAY NEEDED Warfarin Warfarin Yes David TAKE [address] Sodium Sodium [place] TABLET BY [facility] - ORAL ROUTE Memoria EVERY DAY l ON THU [facility] ent Clinics Diclofenac Diclofenac Yes David APPLY [address] [facility] Sodium Sodium [place] GRAMS TO [facility] - AFFECTED Memoria AREA TWICE l A DAY [facility] Hydrocodone Hydrocodone Yes David (Schedule [facility] -Acetaminop -Acetaminop [facility] II Drug) [facility] - hen hen TAKE 1 Memoria TABLET BY l MOUTH [facility] TWICE A ent DAY Clinics Immunizations Ordered Immunization Filled Immunization Date Status Commen ts Source Name Name Influenza Hd 2017-12-11 Completed [facility] ge 00:00:00 of Medicine Influenza Hd 2017-12-11 Completed [facility] ge 00:00:00 of Medicine Pneumococcal 2017-11-30 Completed [facility] ge 13-valent Conjugate 00:00:00 of Me dicine Vaccine Pneumococcal 2017-11-30 Completed [facility] ge Polysaccharide 00:00:00 of Medicin e Pneumococcal 2017-11-30 Completed [facility] ge 13-valent Conjugate 00:00:00 of Me dicine Vaccine Pneumococcal 2017-11-30 Completed [facility] ge Polysaccharide 00:00:00 of Medicin e Pneumococcal 2017-07-22 Completed [facility] ge 13-valent Conjugate 00:00:00 of Me dicine Vaccine Pneumococcal 2017-07-22 Completed [facility] ge 13-valent Conjugate 00:00:00 of Me dicine Vaccine Influenza (whole) 2015-08-16 Completed [facility] 00:00:00 of Medicine Influenza (whole) 2015-08-16 Completed [facility] 00:00:00 of Medicine Influenza (whole) 2014-12-14 Completed [facility] 00:00:00 of Medicine Influenza (whole) 2014-12-14 Completed [facility] 00:00:00 of Medicine Vital Signs Vital [...] HEIGHT 2020-03-08 23:00:00 182.9 cm Systolic blood 2020-07-02 19:08:00 142 mm[Hg] [facility] pressure Medicine Diastolic blood 2020-07-02 19:08:00 77 mm[Hg] [facility] pressure Medicine Heart rate 2020-07-02 19:08:00 65 [facility] 2020-07-02 19:08:00 [facility] weight 2020-07-02 19:08:00 96.163 kg [facility] ollege of Medicine BMI 2020-07-02 19:08:00 28.75 kg/m2 [facility] ol[facility] of [facility] WEIGHT 2020-03-09 07:00:00 87.998 kg HEIGHT 2020-03-08 [...] kg Body height 2019-09-22 15:26:00 180.3 cm [facility] Body height 2019-09-22 15:26:00 180.3 cm [facility] Procedures This patient has no known procedures. Plan of Care Planned Planned Date Details Comments Source Activity Future 2021-07-16 Depression screening Univers ity of Scheduled Test 00:00:00 (procedure) [code = [facility] [id number]] Branch Future 2021-07-16 Depression screening Univers ity of Scheduled Test 00:00:00 (procedure) [code = [facility] [id number]] Branch Future 2020-11-28 INFLUENZA VACCINE University of Scheduled Test 00:00:00 (Season Ended) [code = [place] [facility] INFLUENZA VACCINE Branch (Season Ended)] Future 2020-11-28 INFLUENZA VACCINE University of Scheduled Test 00:00:00 (Season Ended) [code = [place] [facility] INFLUENZA VACCINE Branch (Season Ended)] Future 2017 Medicare Annual Wellness Uni versity of Scheduled Test 00:00:00 Visit (procedure) [code [facility] = [id number]] Branch Future 2017 PNEUMOCOCCAL VACCINES Univer sity of Scheduled Test 00:00:00 65+ (1 of 1 - PPSV23) [facility] [code = PNEUMOCOCCAL Branch VACCINES 65+ (1 of 1 - PPSV23)] Future 2017 Medicare Annual Wellness Uni versity of Scheduled Test 00:00:00 Visit (procedure) [code [facility] = [id number]] Branch Future 2017 PNEUMOCOCCAL VACCINES Univer sity of Scheduled Test 00:00:00 65+ (1 of 1 - PPSV23) [facility] [code = PNEUMOCOCCAL Branch VACCINES 65+ (1 of 1 - PPSV23)] Future 2002 Screening for occult Univers ity of Scheduled Test 00:00:00 blood in feces [place] [facility] (procedure) [code = Branch [id number]] Future 2002 Stool DNA-based University o f Scheduled Test 00:00:00 colorectal cancer [place] Me dical screening (procedure) Branch [code = [id number]] Future 2002 Flexible fiberoptic Universi ty of Scheduled Test 00:00:00 sigmoidoscopy [place] [facility] l (procedure) [code = Branch [id number]] Future 2002 Screening for malignant Univ ersity of Scheduled Test 00:00:00 neoplasm of colon [place] [facility] dical (procedure) [code = Branch [id number]] Future 2002 Screening for malignant Univ ersity of Scheduled Test 00:00:00 neoplasm of colon [place] Me dical (procedure) [code = Branch [id number]] Future 2002 Zoster Recombinant Universit y of Scheduled Test 00:00:00 Vaccine (SHINGRIX) (1 of [facility] Medical 2) [code = Zoster Branch Recombinant Vaccine (SHINGRIX) (1 of 2)] Future 2002 Screening for occult Univers ity of Scheduled Test 00:00:00 blood in feces [place] [facility] al (procedure) [code = Branch [id number]] Future 2002 Stool DNA-based University o f Scheduled Test 00:00:00 colorectal cancer [place] Me dical screening (procedure) Branch [code = [id number]] Future 2002 Flexible fiberoptic Universi ty of Scheduled Test 00:00:00 sigmoidoscopy [place] [facility]ica l (procedure) [code = Branch [id number]] Future 2002 Screening for malignant Univ ersity of Scheduled Test 00:00:00 neoplasm of colon [place] Me dical (procedure) [code = Branch [id number]] Future 2002 Screening for malignant Univ ersity of Scheduled Test 00:00:00 neoplasm of colon [place] Me dical (procedure) [code = Branch [id number]] Future 2002 Zoster Recombinant Universit y of Scheduled Test 00:00:00 Vaccine (SHINGRIX) (1 of T [facility] 2) [code = Zoster Branch Recombinant Vaccine (SHINGRIX) (1 of 2)] Future 1971-06-09 DTaP,Tdap,and Td University of Scheduled Test 00:00:00 Vaccines (1 - Tdap) [place] [facility] [code = DTaP,Tdap,and Td [facility] Vacc[facility] (1 - Tdap)] Future 1971-06-09 DTaP,Tdap,and Td University of Scheduled Test 00:00:00 Vaccines (1 - Tdap) [place] [facility] [code = DTaP,Tdap,and Td [facility] Vaccines (1 - Tdap)] Future 1970 Hepatitis C screening Univer sity of Scheduled Test 00:00:00 (procedure) [code = [facility] [id number]] Branch Future 1970 Hepatitis C screening Univer sity of Scheduled Test 00:00:00 (procedure) [code = [facility] [id number]] Branch Future 1968 SARS-CoV-2 (COVID-19) Univer sity of Scheduled Test 00:00:00 Vaccine (1) [code = [facility] SARS-CoV-2 (COVID-19) Branch Vaccine (1)] Future 1968 SARS-CoV-2 (COVID-19) Univer sity of Scheduled Test 00:00:00 Vaccine (1) [code = [facility] SARS-CoV-2 (COVID-19) Branch Vaccine (1)] Future COLON CANCER SCREENING: [facility] or [place] Scheduled Test COLONOSCOPY [code = of Med icine COLON CANCER SCREENING: COLONOSCOPY] Future TETANUS SHOT (ADULT) [facility] Scheduled Test [code = TETANUS SHOT of Me dicine (ADULT)] Future BMI FOLLOW UP PLAN [code [facility] Scheduled Test = BMI FOLLOW UP PLAN] of edicine Future HEPATITIS C SCREENING [facility] Scheduled Test [code = HEPATITIS C of Med icine SCREENING] Future AAA Screen [code = [facility] Scheduled Test Screen] of Medicine Future FALL SCREEN [code = FALL [facility] Scheduled Test SCREEN] of Medicine Future MEDICARE IPPE (WELCOME [facility] Scheduled Test TO MEDICARE) [code = of Me dicine MEDICARE IPPE (WELCOME TO MEDICARE)] Future FLU VACCINE > 6 MONTHS [facility] Scheduled Test [code = FLU VACCINE > 6 of Medicine MONTHS] Future NEUROPSYCHOLOGICAL Ordered: [facility] anali Scheduled Test TESTING [code = NOCPT] 07/02/2020 of Medicine Future Screening for malignant [facility] or [place] Scheduled Test neoplasm of colon of Medic ine (procedure) [code = [id number]] Future COVID-19 Vaccine (1) [facility] Scheduled Test [code = COVID-19 Vaccine o f Medicine (1)] Future BMI FOLLOW UP PLAN [code [facility] Scheduled Test = BMI FOLLOW UP PLAN] of M edicine Future Hepatitis C screening [facility] Scheduled Test (procedure) [code = of Med icine 587310622] Future Abdominal aortic [facility] Scheduled Test aneurysm screening of Medi cine (procedure) [code = 419375796] Future FALL SCREEN [code = FALL [facility] Scheduled Test SCREEN] of Medicine Future MEDICARE AWV (Initial) [facility] Scheduled Test [code = MEDICARE AWV of Me dicine (Initial)] Future ZOSTER VACCINE (2 of 2) [facility] Scheduled Test [code = ZOSTER VACCINE of Medicine (2 of 2)] Future FLU VACCINE > 6 MONTHS [facility] Scheduled Test [code = FLU VACCINE > 6 of Medicine MONTHS] Future TETANUS SHOT (ADULT) [facility] Scheduled Test [code = TETANUS SHOT of Me dicine (ADULT)] Future EGD W/MAC - GI DEPT 1 Occurrences [facility] Scheduled Test [code = 28767] starting of Medicine 09/22/2019 until 03/23/2020 Encounters Start End Encounter Admission Attending Care Care Encounter Source Date/Time Date/Time Type Type Clinicians Facility Department ID 2021-04-24 Outpatient Kelsey, [facility] 13[facility]06 [facility] [address] [facility] 2021-04-[address] [facility] [id number] 13[facility]09:[facility] [address] [facility] 2021-04-[address] [facility] [id number] 12:17:35 [facility] [address] [facility] 2021-04-[facility] [id number] [facility]32 [facility] [address] [facility] 2021-01-04 Outpatient SANDI, [facility] Surgery [id number] [facility] 17:51:07 CHUCKIE 2021-01-03 Outpatient SANDI, [facility] [id number] [facility] 09:54:24 CHUCKIE 2021-01-02 Outpatient SANDI, [facility] Surgery [id number] [facility] 11:39:59 CHUCKIE 2021-01-01 Outpatient SANDI, [facility] [id number] [facility] 22:09:55 CHUCKIE 2020-03-08 Inpatient UR CARMEN, [facility] Gastro [id number] [facility] 22:00:00 WILI 2021-06-27 2021-06-27 Outpatient KHLOE WIGGINS [facility] [id number] [facility] 14:32:33 16:06:36 Colleg ranjit of Medicin e 2021-05-07 2021-05-07 Telephone [facility] 1.2.840.114 [id number] [facility] 00:00:00 00:00:00 [place] 350.1.13.10 i ty [place] [id number] N[address] 2021-05-07 2021-05-07 Telephone [facility] 1.2.840.114 [id number] Univers 00:00:00 00:00:00 [place] 350.1.13.10 i [place] [id number] [address] 2021-04-17 2021-04-17 ambulatory [facility] [id number] [facility] 2021-04-15 2021-04-15 ambulatory [facility] [id number] [facility] 2020-09-11 2020-09-11 Outpatient [facility] [id number] [facility] 2020-09-03 2020-09-03 Outpatient [facility] [id number] [facility] 2020-09-03 2020-09-03 Outpatient [facility] [id number] [facility]00 [facility] ent Clinics 2020-07-02 2020-07-02 Office Khloe Wiggins BCM 1.2.840.114 [id number] [facility] 13:53:33 15:51:05 Visit AMBULATOR 350.1.13.21 College Y 0.2.7.2.686 of [id number] [facility] abner 800 e 2020-04-03 2020-04-03 Outpatient [facility] [id number] [facility] 00[facility]:00 Umesh - [facility] ent Clinics 2020-03-05 2020-03-05 Outpatient EL SLE [facility] [id number] [facility] 00:00:00 00:00:00 2020-02-13 2020-02-13 Outpatient EL [facility] [id number] [facility] 00:00:00 00:00:00 2020-01-18 2020-01-18 Outpatient EL [facility] [id number] [facility] 00:00:00 00:00:00 2019-09-22 2019-09-22 Office Sandi, BCM 1.2.840.114 [id number] 09:37:45 16:43:25 Visit Chuckie M. AMBULATOR 350.1.13.21 Y 0.2.7.2.686 [id number] 2019-09-22 2019-09-22 Office Sandi, BCM 1.2.840.114 [id number] [facility] 09:37:45 16:43:25 Visit Chuckie M. AMBULATOR 350.1.13.21 College Y 0.2.7.2.686 of [id number] [facility] abner 325 e 2019-08-02 2019-08-02 [facility] [id number] 09:00:00 09:00:00 [facility] ent [facility] Results Test Description Test Time Test Comments Results Result Comments Source PROTHROMBIN TIME/INR 2020-03-10 05:46:00 Test Item Value Reference Range Interpretation Comme nts PROTIME (BEAKER) (test code = 759) 20.1 seconds 11.9-14.2 H INR (BEAKER) (test code = 370) 1.76 <=5.90 Effective 08/25/2018: PT Reference Range ChangeNew: 11.9-14.2 Previous: 11.7- 14.7RECOMMENDED COUMADIN/WARFARIN INR THERAPY RANGESSTANDARD DOSE: 2.0-3.0 Includes: PROPHYLAXIS for venous thrombosis, systemic embolization; TREATMENT for venous thrombosis and/or pulmonary embolus.HIGH RISK: Target INR is2.5-3.5 for patients wiht mechanical heart valves.CBC W/PLT COUNT & AUTO [id number] 05:27:00 Test Item Value Reference Range Interpretation [...] (BEAKER) (test code = 2801) HEMOGLOBIN AND [id number] 16:14:00 Test Item Value Reference Range Interpretation Comments HEMOGLOBIN (BEAKER) (test code = 13.1 GM/DL 13.7-17.5 L 410) HEMATOCRIT (BEAKER) (test code = 40.9 % 40.1-51.0 411) Animal Treatment Investigator ID - [id number]-COV2/RT-PCR ([facility])2020-03-09 11:34:00 Test Item Value Reference Range Interpretation Comments SARS-COV2/RT-PCR (test Negative Not Detected, Negative, code = 8161569) See external report for linked test SARS-COV-2 PERFORMING LAB [facility] (test code = 6654939) Negative result for this test determines that [...] 564(g) of the Act.Fact Sheet for Healthcare Providers:https://www.[employer]/sites/default/files/product/documents/Fact_Shee u_OZ_Kyqttqorg_Dkaw_BPRS-TwC-6.pdfFact Sheet for Healthcare Patients:https://www.[employer]/sites/default/files/product/ documents/Holb_Rvlqa_Cygagbpk_Zqde_QIOQ-WcJ-7.pdfPerforming Laboratory:[facility] [facility].[place], [place] [address]AGBDQ METABOLIC PANEL 2020-03-09 06:11:00 Test Item Value [...] NOT code = 1092) ACCURATE CREATININE ACE NIETO IN PREDICTING GLOMERULAR FILT RATION RATE. ESTIMATED GFR IS NOT APPLICAB LE FOR DIALYSIS PATIEN TS. Animal Treatment Investigator ID - EDASIHEPATIC FUNCTION [id number] 06:10:00 Test Item Value Reference Range Interpretation [...] (test code = 32 U/L 6-55 347) Animal Treatment Investigator ID - EDASIPROTHROMBIN TIME/[id number] 05:21:00 Test Item Value Reference Range Interpretation [...] mechanical heart valves.CBC W/PLT COUNT & AUTO [id number] 05:18:00 Test Item Value Reference Range Interpretation [...] (BEAKER) (test code = 2801) HEMOGLOBIN AND [id number] 05:18:00 Test Item Value Reference Range Interpretation Comments HEMOGLOBIN (BEAKER) (test code = 11.9 GM/DL 13.7-17.5 L 410) HEMATOCRIT (BEAKER) (test code = 36.8 % 40.1-51.0 L 411) TISSUE [id number] 17:09:00Surgical Pathology Report Case: [id number] Authorizing Provider: Chuckie Aguilar Collected: 03/06/2020 11:53 AM Ordering Location: [facility] Endoscopy Received: 03/06/2020 02:38 PM Services Pathologist: Orquidea Gonzales MD Specimen: Biopsy, Gastric, random STOMACH, ENDOSCOPIC MUCOSAL BIOPSIES- ANTRAL AND OXYNTIC MUCOSA WITH MILD CHRONIC INACTIVE GASTRITIS - OXYNTIC MUCOSA WITH PARIETAL CELL HYPERTROPHY, see COMMENT- ANTRAL MUCOSA WITH INTESTINAL METAPLASIA- NEGATIVE FOR HELICOBACTER PYLORI- NEGATIVE FOR DYSPLASIA OR CARCINOMA Signing Pathologist Direct Phone Line: [phone] signed by Orquidea Gonzales MD on 03/08/2020 at 5:08 [id number], [id number], esophageal stenosisA-random gastric biopsySpecimen A is received [...] evaluated Immunohistochemistry technical testing was performed at [facility], Pathology Laboratory where it was [...] qualified to perform high complexity clinical laboratory testing.PT/[id number] 11:41:00 Test Item Value Reference Range Interpretation Comments PROTIME (BEAKER) (test code = 21.1 seconds 11.9-14.2 H 759) INR (BEAKER) (test code = 370) 1.88 <=5.90 PARTIAL THROMBOPLASTIN TIME 46.1 seconds 22.5-36.0 H (AMADOR) (test code = 760) Effective 08/25/2018: PT Reference Range ChangeNew: 11.9-14.2 Previous: 11.7- 14.7RECOMMENDED COUMADIN/WARFARIN INR THERAPY RANGESSTANDARD DOSE: 2.0-3.0 Includes: PROPHYLAXIS for venous thrombosis, systemic embolization; TREATMENT for venous thrombosis and/or pulmonary embolus.HIGH RISK: Target INR is2.5-3.5 for patients wiht mechanical heart valves.TISSUE [id number] 14:30:00Surgical Pathology Report Case: [id number] Authorizing Provider: Chuckie Aguilar Collected: 02/14/2020 01:11 PM Ordering Location: [facility] Endoscopy Received: 02/14/2020 02:29 PM [...] OR MALIGNANCY. Signing Pathologist Direct Phone Line: [phone] signed by Ayaka Aviles MD on 02/16/2020 at 2:30 [id number], [id number], [id number], 61584IituczccfFsmuxqali biopsy Received in formalin labeled with the [...] evaluated Immunohistochemistry technical testing was performed at [facility], Pathology Laboratory where it was [...] qualified to perform high complexity clinical laboratory testing.[facility], Department of Pathology, [address] [place] [address], [facility]fg[facility], Department of Pathol ogy, [address] [place] [address], LgxwyoSanta Clara Valley Medical Center, Department of Pathology, [address] [place] [address], OVJAZPRVAVY TIME/[id number] 11:45:00 Test Item Value Reference Range Interpretation [...] INR is2.5-3.5 for patients wiht mechanical heart valves.PT/[id number] 13:03:00 Test Item Value Reference Range Interpretation [...] is2.5-3.5 for patients wiht mechanical heart valves.ANAEROBIC [id number] 03:13:00 Test Item Value Reference Range Interpretation Comments CULTURE (BEAKER) (test No anaerobes isolated code = 1095) BLOOD [id number] 01:01:00 Test Item Value Reference Range Interpretation Comments CULTURE (BEAKER) (test No growth in 5 days code = 1095) BLOOD [id number] 19:01:00 Test Item Value Reference Range Interpretation Comments CULTURE (BEAKER) (test No growth in 5 days code = 1095) SURGICALLY OBTAINED CULTURE + GRAM [id number] 10:24:00 Test Item Value Reference Range Interpretation [...] No organisms (BEAKER) (test code = seen 234259) BASIC METABOLIC [id number] 05:29:00 Test Item Value Reference Range Interpretation [...] NOT APPLICABLE FOR DIALYSIS PATIEN TS. PROTHROMBIN [id number] 05:20:00 Test Item Value Reference Range Interpretation [...] 0-0 (BEAKER) (test code = 413) [place], [id number] 15:36:00Reason for exam:->abnormal imagingFINAL REPORT Intraoperative fluoroscopy [...] MDReport Verified Date/Time: 04/29/2018 15:36:30 Reading Location: [address] Consult Reading Room COMPREHENSIVE METABOLIC PANEL [...] NOT APPLICABLE FOR DIALYSIS PATIEN TS. PROTHROMBIN TIME/[id number] 05:50:00 Test Item Value Reference Range Interpretation [...] PERCENT (BEAKER) (test code = 2801) PROTHROMBIN TIME/[id number] 18:49:00 Test Item Value Reference Range Interpretation Comments PROTIME (BEAKER) (test code = 20.6 seconds 11.7-14.7 H 759) INR (BEAKER) (test code = 370) 1.8 <=5.9 RECOMMENDED COUMADIN/WARFARIN INR THERAPY RANGESSTANDARD DOSE: 2.0 - 3.0 Includes: PROPHYLAXIS forvenous thrombosis, systemic embolization; TREATMENT for venous thrombosis and/or pulmonary embolus.HIGH RISK: Target INR is 2.5-3.5 for patients with mechanical heart valves.CT, [id number] 20:18:00Possible wound infection vs dehiscence, ANANTH drain [...] Nevarez MDReport Verified Date/Time: 20:18:36 Reading Location: [address] Reading Room MAGNESIUM 2018-04-26 13:11:00 Test Item Value Reference Range Interpretation Comments MAGNESIUM (BEAKER) (test code = 1.5 mg/dL 1.6-2.6 L 627) BASIC METABOLIC [id number] 13:11:00 Test Item Value Reference Range Interpretation [...] APPLICABLE FOR DIALYSIS PATIEN TS. HEPATIC FUNCTION [id number] 13:11:00 Test Item Value Reference Range Interpretation [...] (test code = 10 U/L 6-55 347) [id number] 13:02:00 Test Item Value Reference Range Interpretation Comments PARTIAL THROMBOPLASTIN TIME 52.9 seconds 22.5-36.0 H (BEAKER) (test code = 760) PROTHROMBIN TIME/[id number] 13:00:00 Test Item Value Reference Range Interpretation [...] 0-1 PERCENT (BEAKER) (test code = 2801) [id number] 07:26:00 Test Item Value Reference Range Interpretation Comments MAGNESIUM (BEAKER) (test code = 2.0 mg/dL 1.6-2.6 627) BASIC METABOLIC [id number] 07:26:00 Test Item Value Reference Range Interpretation [...] APPLICABLE FOR DIALYSIS PATIEN TS. HEPATIC FUNCTION [id number] 07:26:00 Test Item Value Reference Range Interpretation [...] (test code = 12 U/L 6-55 347) [id number] 07:25:00 Test Item Value Reference Range Interpretation Comments PHOSPHORUS (BEAKER) (test code = 2.6 mg/dL 2.3-4.7 604) PROTHROMBIN [id number] 07:11:00 Test Item Value Reference Range Interpretation [...] (BEAKER) (test code = 2801) HEPATIC FUNCTION [id number] 07:51:00 Test Item Value Reference Range Interpretation [...] (test code = 12 U/L 6-55 347) [id number] 06:10:00 Test Item Value Reference Range Interpretation Comments PHOSPHORUS (BEAKER) (test code = 2.5 mg/dL 2.3-4.7 604) [id number] 06:10:00 Test Item Value Reference Range Interpretation Comments MAGNESIUM (BEAKER) (test code = 1.8 mg/dL 1.6-2.6 627) BASIC METABOLIC [id number] 06:10:00 Test Item Value Reference Range Interpretation [...] NOT APPLICABLE FOR DIALYSIS PATIEN TS. PROTHROMBIN [id number] 05:54:00 Test Item Value Reference Range Interpretation [...] PERCENT (BEAKER) (test code = 2801) PROTHROMBIN [id number] 09:25:00 Test Item Value Reference Range Interpretation Comments PROTIME (BEAKER) (test code = 30.8 seconds 11.7-14.7 H 759) INR (BEAKER) (test code = 370) 3.0 <=5.9 RECOMMENDED COUMADIN/WARFARIN INR THERAPY RANGESSTANDARD DOSE: 2.0 - 3.0 Includes: PROPHYLAXIS forvenous thrombosis, systemic embolization; TREATMENT for venous thrombosis and/or pulmonary embolus.HIGH RISK: Target INR is 2.5-3.5 for patients with mechanical heart valves.[id number] 09:15:00 Test Item Value Reference Range Interpretation Comments PHOSPHORUS (BEAKER) (test code = 2.5 mg/dL 2.3-4.7 604) [id number] 09:15:00 Test Item Value Reference Range Interpretation Comments MAGNESIUM (BEAKER) (test code = 1.8 mg/dL 1.6-2.6 627) BASIC METABOLIC [id number] 09:15:00 Test Item Value Reference Range Interpretation [...] PATIEN TS. CBC W/PLT COUNT & AUTO [id number] 08:59:00 Test Item Value Reference Range Interpretation [...] 0-1 PERCENT (BEAKER) (test code = 2801) [id number] 09:36:00 Test Item Value Reference Range Interpretation Comments PHOSPHORUS (BEAKER) (test code = 2.4 mg/dL 2.3-4.7 604) [id number] 09:36:00 Test Item Value Reference Range Interpretation Comments MAGNESIUM (BEAKER) (test code = 1.7 mg/dL 1.6-2.6 627) BASIC METABOLIC [id number] 09:36:00 Test Item Value Reference Range Interpretation [...] NOT APPLICABLE FOR DIALYSIS PATIEN TS. PROTHROMBIN [id number] 09:32:00 Test Item Value Reference Range Interpretation [...] PERCENT (BEAKER) (test code = 2801) BLOOD [id number] 19:01:00 Test Item Value Reference Range Interpretation Comments CULTURE (BEAKER) (test No growth in 5 days code = 1095) BLOOD [id number] 19:01:00 Test Item Value Reference Range Interpretation Comments CULTURE (BEAKER) (test No growth in 5 days code = 1095) POCT-GLUCOSE [id number] 17:07:00 Test Item Value Reference Range Interpretation Comments POC-GLUCOSE METER 97 mg/dL 70-110 TESTED AT [facility] 6720 (BEAKER) (test code = [facility] [address] 1538) POCT-GLUCOSE [id number] 16:56:00 Test Item Value Reference Range Interpretation Comments POC-GLUCOSE METER 122 mg/dL 70-110 H TESTED AT [facility] 6720 (BEAKER) (test code = [facility] 1538) [address] HEPATIC FUNCTION [id number] 09:24:00 Test Item Value Reference Range Interpretation [...] code = 14 U/L 6-55 347) POCT-GLUCOSE [id number] 08:47:00 Test Item Value Reference Range Interpretation Comments POC-GLUCOSE METER 82 mg/dL 70-110 TESTED AT [facility] 6720 (BEAKER) (test code = [place] [address] 1538) CBC W/PLT COUNT & AUTO [id number] 08:39:00 Test Item Value Reference Range Interpretation [...] 0-1 PERCENT (BEAKER) (test code = 2801) [id number] 06:51:00 Test Item Value Reference Range Interpretation Comments PHOSPHORUS (BEAKER) (test code = 1.6 mg/dL 2.3-4.7 L 604) [id number] 06:51:00 Test Item Value Reference Range Interpretation Comments MAGNESIUM (BEAKER) (test code = 1.9 mg/dL 1.6-2.6 627) BASIC METABOLIC [id number] 06:51:00 Test Item Value Reference Range Interpretation [...] NOT APPLICABLE FOR DIALYSIS PATIEN TS. PROTHROMBIN [id number] 06:48:00 Test Item Value Reference Range Interpretation Comments PROTIME (BEAKER) (test code = 29.8 seconds 11.7-14.7 H 759) INR (BEAKER) (test code = 370) 2.9 <=5.9 RECOMMENDED COUMADIN/WARFARIN INR THERAPY RANGESSTANDARD DOSE: 2.0 - 3.0 Includes: PROPHYLAXIS forvenous thrombosis, systemic embolization; TREATMENT for venous thrombosis and/or pulmonary embolus.HIGH RISK: Target INR is 2.5-3.5 for patients with mechanical heart valves.BASIC METABOLIC [id number] 01:00:00 Test Item Value Reference Range Interpretation [...] APPLICABLE FOR DIALYSIS PATIEN TS. HEMOGLOBIN AND [id number] 00:44:00 Test Item Value Reference Range Interpretation Comments HEMOGLOBIN (BEAKER) (test code = 10.0 GM/DL 13.7-17.5 L 410) HEMATOCRIT (BEAKER) (test code = 30.5 % 40.1-51.0 L 411) POCT-GLUCOSE [id number] 00:41:00 Test Item Value Reference Range Interpretation Comments POC-GLUCOSE METER 100 mg/dL 70-110 TESTED AT [place] [address] [facility] (test code = [place] 1538) [address] PROTHROMBIN [id number] 23:45:00 Test Item Value Reference Range Interpretation Comments PROTIME (AMADOR) (test code = 30.7 seconds 11.7-14.7 H 759) [facility] (test code = 370) 3.0 <=5.9 RECOMMENDED COUMADIN/WARFARIN INR THERAPY RANGESSTANDARD DOSE: 2.0 - 3.0 Includes: PROPHYLAXIS forvenous thrombosis, systemic embolization; TREATMENT for venous thrombosis and/or pulmonary embolus.HIGH RISK: Target INR is 2.5-3.5 for patients with mechanical heart valves.POCT-GLUCOSE [id number] 18:15:00 Test Item Value Reference Range Interpretation Comments POC-GLUCOSE METER 113 mg/dL 70-110 H TESTED AT [place] [address] ([facility]) (test code = [place] 1538) [address] PROTHROMBIN [id number] 13:06:00 Test Item Value Reference Range Interpretation Comments PROTIME (AMADOR) (test code = 28.3 seconds 11.7-14.7 H 759) INR (BEAKER) (test code = 370) 2.6 <=5.9 RECOMMENDED COUMADIN/WARFARIN INR THERAPY RANGESSTANDARD DOSE: 2.0 - 3.0 Includes: PROPHYLAXIS forvenous thrombosis, systemic embolization; TREATMENT for venous thrombosis and/or pulmonary embolus.HIGH RISK: Target INR is 2.5-3.5 for patients with mechanical heart valves.HEMOGLOBIN AND [id number] 12:43:00 Test Item Value Reference Range Interpretation Comments HEMOGLOBIN (AMADOR) (test code = 9.9 GM/DL 13.7-17.5 L 410) HEMATOCRIT (AMADOR) (test code = 29.7 % 40.1-51.0 L 411) POCT-GLUCOSE [id number] 12:09:00 Test Item Value Reference Range Interpretation Comments POC-GLUCOSE METER 144 mg/dL 70-110 H TESTED AT [place] [address] ([facility]) (test code = [place] 1538) [address] HEMOGLOBIN AND [id number] 06:16:00 Test Item Value Reference Range Interpretation Comments HEMOGLOBIN (BEAKER) (test code = 9.0 GM/DL 13.7-17.5 L 410) HEMATOCRIT (BEAKER) (test code = 28.0 % 40.1-51.0 L 411) POCT-GLUCOSE [id number] 06:00:00 Test Item Value Reference Range Interpretation Comments POC-GLUCOSE METER 118 mg/dL 70-110 H TESTED AT [facility] 6720 (BEAKER) (test code = [place] 1538) [address] [id number] 05:20:00 Test Item Value Reference Range Interpretation Comments PHOSPHORUS (BEAKER) (test code = 2.7 mg/dL 2.3-4.7 604) [id number] 05:20:00 Test Item Value Reference Range Interpretation Comments MAGNESIUM (BEAKER) (test code = 1.9 mg/dL 1.6-2.6 627) BASIC METABOLIC [id number] 05:20:00 Test Item Value Reference Range Interpretation [...] APPLICABLE FOR DIALYSIS PATIEN TS. HEPATIC FUNCTION [id number] 05:20:00 Test Item Value Reference Range Interpretation [...] U/L 6-55 347) LACTIC ACID, ARTERIAL, WHOLE [id number] 05:08:00 Test Item Value Reference Range Interpretation Comments LACTATE BLOOD ARTERIAL (2) 0.9 mmol/L 0.5-2.2 (BEAKER) (test code = 2874) PROTHROMBIN TIME/[id number] 05:03:00 Test Item Value Reference Range Interpretation [...] PERCENT (BEAKER) (test code = 2801) PROTHROMBIN [id number] 00:39:00 Test Item Value Reference Range Interpretation Comments PROTIME (BEAKER) (test code = 25.3 seconds 11.7-14.7 H 759) INR (BEAKER) (test code = 370) 2.3 <=5.9 RECOMMENDED COUMADIN/WARFARIN INR THERAPY RANGESSTANDARD DOSE: 2.0 - 3.0 Includes: PROPHYLAXIS forvenous thrombosis, systemic embolization; TREATMENT for venous thrombosis and/or pulmonary embolus.HIGH RISK: Target INR is 2.5-3.5 for patients with mechanical heart valves.HEMOGLOBIN AND [id number] 00:30:00 Test Item Value Reference Range Interpretation Comments HEMOGLOBIN (BEAKER) (test code = 8.1 GM/DL 13.7-17.5 L 410) HEMATOCRIT (BEAKER) (test code = 25.0 % 40.1-51.0 L 411) POCT-GLUCOSE [id number] 00:30:00 Test Item Value Reference Range Interpretation Comments POC-GLUCOSE METER 129 mg/dL 70-110 H TESTED AT [place] [address] ([facility]) (test code = CHACHA Ben[place] 1538) [address] POCT-GLUCOSE [id number] 18:22:00 Test Item Value Reference Range Interpretation Comments POC-GLUCOSE METER 102 mg/dL 70-110 TESTED AT [place] [address] ([facility]) (test code = CHACHA Benites [facility] 1538) [address] PROTHROMBIN [id number] 17:09:00 Test Item Value Reference Range Interpretation Comments PROTIME (BEAKER) (test code = 25.8 seconds 11.7-14.7 H 759) INR (BEAKER) (test code = 370) 2.4 <=5.9 RECOMMENDED COUMADIN/WARFARIN INR THERAPY RANGESSTANDARD DOSE: 2.0 - 3.0 Includes: PROPHYLAXIS forvenous thrombosis, systemic embolization; TREATMENT for venous thrombosis and/or pulmonary embolus.HIGH RISK: Target INR is 2.5-3.5 for patients with mechanical heart valves.HEMOGLOBIN AND [id number] 16:59:00 Test Item Value Reference Range Interpretation Comments HEMOGLOBIN (BEAKER) (test code = 8.4 GM/DL 13.7-17.5 L 410) HEMATOCRIT (BEAKER) (test code = 25.8 % 40.1-51.0 L 411) TISSUE [id number] 16:07:00Surgical Pathology Report Case: [id number] Authorizing Provider: Isrrael Laureano MD Collected: 03/19/2018 1626 Ordering Location: [facility] Received: 03/22/2018 0841 SERVICES Pathologist: Meek Johnson MD Specimens: A) - Gallbladder, GALLBLADDER MUCOSA B) -Gallbladder A. GALLBLADDER MUCOSA, EXCISION: - NECROTIC FIBROADIPOSE TISSUE WITH BILE FRAGMENTS - NO VIABLE MUCOSA AVAILABLE FOR EVALUATIONB. GALLBLADDER, CHOLECYSTECTOMY: - MARKED ACUTE NECROTIZING CHOLECYSTITIS WITH HEMORRHAGE AND REACTIVE CHANGES Signing Pathologist Direct Phone Line: [phone] signed by Meek Johnson MD on 03/24/2018 at 4:07 [id number] X 2Acute cholecystitis A. Gallbladder mucosa. B.Gallbladder The case was received in two parts labeled with the patient's name, Seven Diaz, date of 1950, and accession number, [id number], which corresponds with accompanying paperwork.A. Received in formalin and labeled "A. Gallbladder mucosa" is a 10.5 x 3.0 x 0.3 cm thick piece of velvety, shiny, green, soft tissue mucosa. The specimen is serially sectioned, and business services representative sections are submitted in cassettes A1 and A2.B. Received in formalin and labeled "B. Gallbladder" is a 6.5 x 4.5 x 0.7 cm thick piece of green-yellow to green soft tissue. The specimen is serially sectioned, and business services representative sections are submitted in cassettes B1 through B2. No common bile duct margin or duct can be identified. No calculi are identified. SC/ew Performed.FL, [id number] 15:39:00INTRA OP IMAGINGReason for exam:- >ABNORMAL IMAGINGFINAL REPORT Nondiagnostic exam. Radiology provided fluoroscopy for ERCP performed by Dr. Aguilar. Neither radiologist presence nor interpretation were requested. Please refer to the operative report for further information. Fluoroscopy time was 93.1 cm. Total # of images: 3 Signed: JR Muñoz Robert MDReport Verified Date/Time: 03/24/2018 15:39:33 Reading Location: [address] Consult Reading Room POCT- GLUCOSE [id number] 12:14:00 Test Item Value Reference Range Interpretation Comments POC-GLUCOSE METER 95 mg/dL 70-110 TESTED AT [facility] [address] ([employer]) (test code = [place] [address] 1538) PROTHROMBIN TIME/[id number] 06:56:00 Test Item Value Reference Range Interpretation Comments PROTIME ([employer]) (test code = 20.1 seconds 11.7-14.7 H 759) INR ([employer]) (test code = 370) 1.7 <=5.9 RECOMMENDED COUMADIN/WARFARIN INR THERAPY RANGESSTANDARD DOSE: 2.0 - 3.0 Includes: PROPHYLAXIS forvenous thrombosis, systemic embolization; TREATMENT for venous thrombosis and/or pulmonary embolus.HIGH RISK: Target INR is 2.5-3.5 for patients with mechanical heart valves.Atleast 30 min after [employer] administrationHEMOGLOBIN AND [id number] 06:50:00 Test Item Value Reference Range Interpretation Comments HEMOGLOBIN (BEAKER) (test code = 8.9 GM/DL 13.7-17.5 L 410) HEMATOCRIT (BEAKER) (test code = 26.9 % 40.1-51.0 L 411) POCT-GLUCOSE [id number] 06:38:00 Test Item Value Reference Range Interpretation Comments POC-GLUCOSE METER 104 mg/dL 70-110 TESTED AT [place] [address] [facility] (test code = CHACHA Benites [facility] 1538) [address] POCT-GLUCOSE [id number] 05:02:00 Test Item Value Reference Range Interpretation Comments POC-GLUCOSE METER 115 mg/dL 70-110 H TESTED AT [place] [address] ([facility]) (test code = CHACHA Benites [facility] 1538) [address] [id number] 04:24:00 Test Item Value Reference Range Interpretation Comments PHOSPHORUS (BEAKER) (test code = 2.2 mg/dL 2.3-4.7 L 604) [id number] 04:24:00 Test Item Value Reference Range Interpretation Comments MAGNESIUM (BEAKER) (test code = 2.0 mg/dL 1.6-2.6 627) BASIC METABOLIC [id number] 04:24:00 Test Item Value Reference Range Interpretation [...] S NOT APPLICABLE FOR DIALYSIS PATIEN TS. [id number] 04:17:00 Test Item Value Reference Range Interpretation [...] 2.5-3.5 for patients with mechanical heart valves.PROTHROMBIN TIME/[id number] 04:16:00 Test Item Value Reference Range Interpretation [...] (BEAKER) (test code = 2874) HEMOGLOBIN AND [id number] 04:01:00 Test Item Value Reference Range Interpretation Comments HEMOGLOBIN (BEAKER) (test code = 8.1 GM/DL 13.7-17.5 L 410) HEMATOCRIT (BEAKER) (test code = 23.7 % 40.1-51.0 L 411) CBC W/PLT COUNT & AUTO [id number] 04:01:00 Test Item Value Reference Range Interpretation [...] PERCENT (BEAKER) (test code = 2801) PROTHROMBIN TIME/[id number] 00:11:00 Test Item Value Reference Range Interpretation Comments PROTIME (BEAKER) (test code = 22.8 seconds 11.7-14.7 H 759) INR (BEAKER) (test code = 370) 2.0 <=5.9 RECOMMENDED COUMADIN/WARFARIN INR THERAPY RANGESSTANDARD DOSE: 2.0 - 3.0 Includes: PROPHYLAXIS forvenous thrombosis, systemic embolization; TREATMENT for venous thrombosis and/or pulmonary embolus.HIGH RISK: Target INR is 2.5-3.5 for patients with mechanical heart valves.HEMOGLOBIN AND [id number] 00:00:00 Test Item Value Reference Range Interpretation Comments HEMOGLOBIN (BEAKER) (test code = 8.1 GM/DL 13.7-17.5 L 410) HEMATOCRIT (BEAKER) (test code = 24.5 % 40.1-51.0 L 411) PROTHROMBIN TIME/[id number] 22:34:00 Test Item Value Reference Range Interpretation [...] hemoly zed (test code = 2874) PROTHROMBIN TIME/[id number] 18:04:00 Test Item Value Reference Range Interpretation Comments PROTIME (BEAKER) (test code = 19.8 seconds 11.7-14.7 H 759) INR (BEAKER) (test code = 370) 1.7 <=5.9 RECOMMENDED COUMADIN/WARFARIN INR THERAPY RANGESSTANDARD DOSE: 2.0 - 3.0 Includes: PROPHYLAXIS forvenous thrombosis, systemic embolization; TREATMENT for venous thrombosis and/or pulmonary embolus.HIGH RISK: Target INR is 2.5-3.5 for patients with mechanical heart valves.HEMOGLOBIN AND [id number] 17:32:00 Test Item Value Reference Range Interpretation Comments HEMOGLOBIN ([facility]) (test code = 7.2 GM/DL 13.7-17.5 L 410) HEMATOCRIT ([facility]) (test code = 21.7 % 40.1-51.0 L 411) POCT-GLUCOSE [id number] 17:31:00 Test Item Value Reference Range Interpretation Comments POC-GLUCOSE METER 130 mg/dL 70-110 H TESTED AT [facility] [address] ([facility]) (test code = CHACHA [place] 1538) [address] RAD, CHEST, 1 VIEW, NON [id number] 14:37:00Reason for exam:->evalute for pulmonary edemaShould this be performed at the bedside?->YesFINAL REPORT HISTORY : evaluate for pulmonary edema. Comparison: 03/23/2018 performed earlier Comment: Single portable view of the chest was obtained. The cardiac silhouette size is enlarged. There are findings of pulmonary venous congestion. Interstitial prominence may represent interstitial edema. Pneumonitis cannot be excluded. There is a tltwy-chkspgjr-ojbbr right- sided pleural effusion with some adjacent consolidation. The patient is status post sternotomy. Nasogastric tube is seen with the tip not included on the film. No lytic or blastic abnormalities are appreciated.No pneumothorax is visualized. Signed: Maia Valentineport Verified Date/Time: 03/23/2018 14:37:03 Reading Location: [address] Transitional Reading Room RAD, ABDOMEN/KUB, 1 VIEW [id number] 13:18:00Reason for exam:->ng tubeShould this be performed [...] MDReport Verified Date/Time: 03/23/2018 13:18:37 Reading Location: [address] Transitional Reading Room POCT-GLUCOSE [id number] 12:57:00 Test Item Value Reference Range Interpretation Comments POC-GLUCOSE METER 177 mg/dL 70-110 H TESTED AT [facility] 67[address] ([facility]) (test code = MARYADOLFO [place] 1538) [address] PROTHROMBIN [id number] 11:46:00 Test Item Value Reference Range Interpretation Comments PROTIME ([facility]) (test code = 34.3 seconds 11.7-14.7 H 759) INR ([facility]) (test code = 370) 3.4 <=5.9 RECOMMENDED COUMADIN/WARFARIN INR THERAPY RANGESSTANDARD DOSE: 2.0 - 3.0 Includes: PROPHYLAXIS forvenous thrombosis, systemic embolization; TREATMENT for venous thrombosis and/or pulmonary embolus.HIGH RISK: Target INR is 2.5-3.5 for patients with mechanical heart valves.VANCOMYCIN LEVEL, [id number] 11:38:00 Test Item Value Reference Range Interpretation Comments VANCOMYCIN TROUGH ([facility]) (test 15.5 ug/mL 10.0-20.0 code = 522) Please draw vancomycin level at 1230. If level >20 mcg/mL, hold 1300 dose and notify .HEMOGLOBIN AND [id number] 11:20:00 Test Item Value Reference Range Interpretation Comments HEMOGLOBIN (BEAKER) (test code = 8.0 GM/DL 13.7-17.5 L 410) HEMATOCRIT ([facility]) (test code = 23.0 % 40.1-51.0 L 411) URINE [id number] 10:24:00 Test Item Value Reference Range Interpretation Comments [facility]URE [facility] (test code = 1095) No growth BASIC METABOLIC [id number] 09:00:00 Test Item Value Reference Range Interpretation [...] S NOT APPLICABLE FOR DIALYSIS PATIEN TS. [id number] 07:03:00 Test Item Value Reference Range Interpretation Comments PHOSPHORUS (BEAKER) (test code = 3.1 mg/dL 2.3-4.7 604) [id number] 07:03:00 Test Item Value Reference Range Interpretation Comments MAGNESIUM (BEAKER) (test code = 2.0 mg/dL 1.6-2.6 627) PROTHROMBIN [id number] 06:56:00 Test Item Value Reference Range Interpretation [...] PERCENT (BEAKER) (test code = 2801) POCT-GLUCOSE [id number] 06:09:00 Test Item Value Reference Range Interpretation Comments POC-GLUCOSE METER 155 mg/dL 70-110 H TESTED AT [facility] [address] ([facility]) (test code = CHACHA [place] 1538) [address] RAD, ABDOMEN/KUB, 1 VIEW [id number] 02:10:00Reason for exam:->Diffuse abdominal painFINAL REPORT Examination: Supine abdomen CLINICAL INDICATION: Diffuse abdominal pain IMPRESSION: Compared with latcher image from abdominal CT performed 03/22/2018. A [...] examination is limited. Results discussedwith the surgical aide caring for the patient at 0200 hours. Signed: Tony Nevarez MDReport Verified Date/Time: 03/23/2018 02:10:42 Reading Location: [address] Reading Room RAD, CHEST, 1 VIEW, NON [id number] 02:06:00Reason for exam:- >Labored breathingShould this be [...] interval change. Results discussed with the surgical aide caring for the patient at the time of dictation. Signed: Tony Nevarez Verified Date/Time: 03/23/201802:06:45 Reading Location: [address] Reading Room -GLUCOSE [id number] 01:49:00 Test Item Value Reference Range Interpretation Comments POC-GLUCOSE METER 154 mg/dL 70-110 H TESTED AT [facility] 67[address] ([facility]) (test code = CHACHA [place] 1538) [address] PROTHROMBIN [id number] 22:17:00 Test Item Value Reference Range Interpretation Comments PROTIME ([facility]) (test code = 34.2 seconds 11.7-14.7 H 759) INR ([facility]) (test code = 370) 3.4 <=5.9 RECOMMENDED COUMADIN/WARFARIN INR THERAPY RANGESSTANDARD DOSE: 2.0 - 3.0 Includes: PROPHYLAXIS forvenous thrombosis, systemic embolization; TREATMENT for venous thrombosis and/or pulmonary embolus.HIGH RISK: Target INR is 2.5-3.5 for patients with mechanical heart valves.HEMOGLOBIN AND [id number] 22:07:00 Test Item Value Reference Range Interpretation Comments HEMOGLOBIN ([facility]) (test code = 6.9 GM/DL 13.7-17.5 L 410) HEMATOCRIT ([facility]) (test code = 21.2 % 40.1-51.0 L 411) CT, [id number] 14:34:00FINAL REPORT CT scan of the abdomen [...] MDReport Verified Date/Time: 03/22/2018 14:34:23 Reading Location: [facility] C013X [facility] Consult Reading Room PROTHROMBIN [id number] 08:57:00 Test Item Value Reference Range Interpretation [...] LYMPHOCYTES ABSOLUTE COUNT 2.76 K/ L 1.32-3.57 (AKER) (test code = 414) MONOCYTES ABSOLUTE COUNT (BEAKER) 0.65 K/ L 0.30-0.82 (test code = 415) EOSINOPHILS ABSOLUTE COUNT 0.15 K/ L 0.04-0.54 (AKER) (test code = 416) BASOPHILS ABSOLUTE COUNT (AKER) 0.03 K/ L 0.01-0.08 (test code = 417) IMMATURE GRANULOCYTES-RELATIVE 3 % 0-1 H PERCENT ([facility]) (test code = 2801) POCT-GLUCOSE [id number] 07:56:00 Test Item Value Reference Range Interpretation Comments POC-GLUCOSE METER 154 mg/dL 70-110 H TESTED AT [place] [address] ([facility]) (test code = CHACHA [place] 1538) [address] [id number] 07:17:00 Test Item Value Reference Range Interpretation Comments PHOSPHORUS ([facility]) (test code = 3.0 mg/dL 2.3-4.7 604) [id number] 07:17:00 Test Item Value Reference Range Interpretation Comments MAGNESIUM ([facility]) (test code = 2.2 mg/dL 1.6-2.6 627) PROTHROMBIN TIME/[id number] 06:54:00 Test Item Value Reference Range Interpretation Comments PROTIME ([facility]) (test code = 37.2 seconds 11.7-14.7 H 759) INR ([facility]) (test code = 370) 3.8 <=5.9 RECOMMENDED COUMADIN/WARFARIN INR THERAPY RANGESSTANDARD DOSE: 2.0 - 3.0 Includes: PROPHYLAXIS forvenous thrombosis, systemic embolization; TREATMENT for venous thrombosis and/or pulmonary embolus.HIGH RISK: Target INR is 2.5-3.5 for patients with mechanical heart valves.POCT-GLUCOSE [id number] 05:17:00 Test Item Value Reference Range Interpretation Comments POC-GLUCOSE METER 91 mg/dL 70-110 Notified Kamari Sultana MD/TESTED AT ([facility]) (test code = [place] [address] [place] 1538) [place] [address] POCT-GLUCOSE [id number] 23:24:00 Test Item Value Reference Range Interpretation Comments POC-GLUCOSE METER 135 mg/dL 70-110 H TESTED AT [facility] 67[address] ([facility] (test code = CHACHA Benites [place] 1538) [address] POCT-GLUCOSE [id number] 18:33:00 Test Item Value Reference Range Interpretation Comments POC-GLUCOSE METER 118 mg/dL 70-110 H Notified Kamari Sultana MD/TESTED ([facility]) (test code = AT [address] 1538) [facility] 7[address] POCT-LACTIC ACID, [id number] 14:32:00 Test Item Value Reference Range Interpretation Comments POC-LACTIC ACID, 0.9 mmol/L 0.9-1.7 TESTED AT [facility] [address] V[place] ([facility]) (test CHACHA [place] code = 2805) [address] PROTHROMBIN [id number] 14:17:00 Test Item Value Reference Range Interpretation Comments PROTIME ([facility]) (test code = 33.4 seconds 11.7-14.7 H 759) INR ([facility]) (test code = 370) 3.3 <=5.9 RECOMMENDED COUMADIN/WARFARIN INR THERAPY RANGESSTANDARD DOSE: 2.0 - 3.0 Includes: PROPHYLAXIS forvenous thrombosis, systemic embolization; TREATMENT for venous thrombosis and/or pulmonary embolus.HIGH RISK: Target INR is 2.5-3.5 for patients with mechanical heart valves.[id number] 14:05:00 Test Item Value Reference Range Interpretation Comments HEMOGLOBIN (BEAKER) (test code = 7.9 GM/DL 13.7-17.5 L 410) POCT-GLUCOSE [id number] 12:15:00 Test Item Value Reference Range Interpretation Comments POC-GLUCOSE METER 104 mg/dL 70-110 Notified Kamari Sultana MD/TESTED (BEAKER) (test code = AT [address] 1538) [facility] 7703 0 BLOOD GAS, [id number] 11:39:00 Test Item Value Reference Range Interpretation [...] (test code = 1819) 32.0 % PROTHROMBIN [id number] 11:38:00 Test Item Value Reference Range Interpretation [...] DIALYSIS PATIEN TS. RAD, ABDOMEN/KUB, 1 VIEW [id number] 06:59:00Reason for exam:->abd distensionFINAL REPORT RAD, ABDOMEN/KUB, [...] Ma Verified Date/Time: 03/21/2018 06:59:51 Reading Location: [address] Neuro Reading Room RAD, CHEST, 1 VIEW, NON [id number] 06:53:00Reason for exam:->tachypneaShould this be performed at [...] Ma Verified Date/Time: 03/21/2018 06:53:46 Reading Location: [address] Neuro Reading Room POCT-GLUCOSE [id number] 05:17:00 Test Item Value Reference Range Interpretation Comments POC-GLUCOSE METER 102 mg/dL 70-110 TESTED AT [place] [id number] (BEAKER) ([facility] 1538) [address] POCT-LACTIC ACID, [id number] 04:57:00 Test Item Value Reference Range Interpretation Comments POC-LACTIC ACID, 0.7 mmol/L 0.9-1.7 L TESTED AT [place] [address] V[place]OUS ([facility]) (test [facility] code = 2805) [address] [id number] 04:55:00 Test Item Value Reference Range Interpretation Comments PHOSPHORUS (BEAKER) (test code = 2.0 mg/dL 2.3-4.7 L 604) [id number] 04:55:00 Test Item Value Reference Range Interpretation Comments MAGNESIUM (BEAKER) (test code = 1.8 mg/dL 1.6-2.6 627) PROTHROMBIN [id number] 04:50:00 Test Item Value Reference Range Interpretation Comments PROTIME (BEAKER) (test code = 35.1 seconds 11.7-14.7 H 759) INR (BEAKER) (test code = 370) 3.5 <=5.9 RECOMMENDED COUMADIN/WARFARIN INR THERAPY RANGESSTANDARD DOSE: 2.0 - 3.0 Includes: PROPHYLAXIS forvenous thrombosis, systemic embolization; TREATMENT for venous thrombosis and/or pulmonary embolus.HIGH RISK: Target INR is 2.5-3.5 for patients with mechanical heart valves.BLOOD GAS, [id number] 00:31:00 Test Item Value Reference Range Interpretation [...] code = 1819) 21.0 % BASIC METABOLIC [id number] 23:47:00 Test Item Value Reference Range Interpretation [...] NOT APPLICABLE FOR DIALYSIS PATIEN TS. PROTHROMBIN [id number] 23:28:00 Test Item Value Reference Range Interpretation [...] PERCENT (BEAKER) (test code = 2801) PROTHROMBIN TIME/[id number] 21:16:00 Test Item Value Reference Range Interpretation [...] METER 150 mg/dL 70-110 H TESTED AT [facility] 6720 (BEAKER) (test code = CHACHA Benites [place] 1538) [address] LACTIC ACID, VENOUS, WHOLE [id number] 13:15:00 Test Item Value Reference Range Interpretation Comments LACTATE BLOOD VENOUS (2) (BEAKER) 1.1 mmol/L 0.5-2.2 (test code = 2872) PROTHROMBIN TIME/[id number] 12:55:00 Test Item Value Reference Range Interpretation Comments PROTIME (BEAKER) (test code = 34.7 seconds 11.7-14.7 H 759) INR (BEAKER) (test code = 370) 3.5 <=5.9 RECOMMENDED COUMADIN/WARFARIN INR THERAPY RANGESSTANDARD DOSE: 2.0 - 3.0 Includes: PROPHYLAXIS forvenous thrombosis, systemic embolization; TREATMENT for venous thrombosis and/or pulmonary embolus.HIGH RISK: Target INR is 2.5-3.5 for patients with mechanical heart valves.POCT-GLUCOSE [id number] 12:46:00 Test Item Value Reference Range Interpretation Comments POC-GLUCOSE METER 127 mg/dL 70-110 H TESTED AT [place] [address] ([facility]) (test code = [facility] Kamari [facility] 1538) [address] LACTIC ACID, VENOUS, WHOLE [id number] 09:11:00 Test Item Value Reference Range Interpretation Comments LACTATE BLOOD VENOUS (2) ([facility]) 1.2 mmol/L 0.5-2.2 (test code = 2872) POCT-GLUCOSE [id number] 08:34:00 Test Item Value Reference Range Interpretation Comments POC-GLUCOSE METER 128 mg/dL 70-110 H TESTED AT [place] [address] ([facility]) (test code = [facility] 1538) [address] CBC W/PLT COUNT & AUTO [id number] 06:51:00 Test Item Value Reference Range Interpretation [...] 3438) Received comment: User comments: Slide comments:POCT-GLUCOSE [id number] 06:38:00 Test Item Value Reference Range Interpretation Comments POC-GLUCOSE METER 110 mg/dL 70-110 TESTED AT [facility] 6720 (BEAKER) (test code = CHACHA [place] 1538) [address] [id number] 05:30:00 Test Item Value Reference Range Interpretation Comments PHOSPHORUS (BEAKER) (test code = 1.9 mg/dL 2.3-4.7 L 604) [id number] 05:30:00 Test Item Value Reference Range Interpretation Comments MAGNESIUM (BEAKER) (test code = 2.0 mg/dL 1.6-2.6 627) LACTIC ACID, VENOUS, WHOLE [id number] 04:19:00 Test Item Value Reference Range Interpretation Comments LACTATE BLOOD VENOUS (2) (BEAKER) 1.3 mmol/L 0.5-2.2 (test code = 2872) PROTHROMBIN [id number] 04:00:00 Test Item Value Reference Range Interpretation Comments PROTIME (BEAKER) (test code = 33.3 seconds 11.7-14.7 H 759) INR (BEAKER) (test code = 370) 3.3 <=5.9 RECOMMENDED COUMADIN/WARFARIN INR THERAPY RANGESSTANDARD DOSE: 2.0 - 3.0 Includes: PROPHYLAXIS forvenous thrombosis, systemic embolization; TREATMENT for venous thrombosis and/or pulmonary embolus.HIGH RISK: Target INR is 2.5-3.5 for patients with mechanical heart valves.LACTIC ACID, VENOUS, WHOLE [id number] 02:24:00 Test Item Value Reference Range Interpretation Comments LACTATE BLOOD VENOUS (2) (BEAKER) 1.1 mmol/L 0.5-2.2 (test code = 2872) POCT-GLUCOSE [id number] 00:24:00 Test Item Value Reference Range Interpretation Comments POC-GLUCOSE METER 88 mg/dL 70-110 TESTED AT [facility] 67 (BEAKER) (test code = CHACHA Benites [facility] [address] 1538) CBC W/PLT COUNT & AUTO [id number] 22:44:00 Test Item Value Reference Range Interpretation [...] = 3438) Received comment: User comments: Slide comments:[id number] 22:34:00 Test Item Value Reference Range Interpretation Comments PHOSPHORUS (BEAKER) (test code = 2.5 mg/dL 2.3-4.7 604) [id number] 22:34:00 Test Item Value Reference Range Interpretation Comments MAGNESIUM (BEAKER) (test code = 2.1 mg/dL 1.6-2.6 627) COMPREHENSIVE METABOLIC [id number] 22:34:00 Test Item Value Reference Range Interpretation [...] DIALYSIS PATIEN TS. LACTIC ACID, VENOUS, WHOLE [id number] 22:22:00 Test Item Value Reference Range Interpretation Comments LACTATE BLOOD VENOUS 0.9 mmol/L 0.5-2.2 Specime n slightly (2) (BEAKER) (test hemolyzed code = 2872) [id number] 22:19:00 Test Item Value Reference Range Interpretation [...] mechanical heart valves.RAD, CHEST, 1 VIEW, NON [id number] 22:15:00Reason for exam:->postopShould this be performed at [...] Spear MDReportVerified Date/Time: 03/19/2018 22:15:19 Reading Location: [facility] Diagnostic Imaging Reading Room - [place] [address] PROTHROMBIN [id number] 16:40:00 Test Item Value Reference Range Interpretation Comments PROTIME (BEAKER) (test code = 25.9 seconds 11.7-14.7 H 759) INR (BEAKER) (test code = 370) 2.4 <=5.9 RECOMMENDED COUMADIN/WARFARIN INR THERAPY RANGESSTANDARD DOSE: 2.0 - 3.0 Includes: PROPHYLAXIS forvenous thrombosis, systemic embolization; TREATMENT for venous thrombosis and/or pulmonary embolus.HIGH RISK: Target INR is 2.5-3.5 for patients with mechanical heart valves.CALCIUM, [id number] 16:01:00 Test Item Value Reference Range Interpretation Comments CALCIUM IONIZED (BEAKER) (test 1.09 mmol/L 1.12-1.27 L code = 698) PH, BLOOD (BEAKER) (test code = 7.44 1810) HEMATOCRIT-STAT [id number] 16:01:00 Test Item Value Reference Range Interpretation Comments HEMATOCRIT (BEAKER) (test code = 411) 29.0 % 40.0-50.0 L HEMOGLOBIN-STAT [id number] 16:01:00 Test Item Value Reference Range Interpretation Comments HEMOGLOBIN (BEAKER) (test code = 9.7 g/dL 13.0-16.8 L 410) POTASSIUM-STAT [id number] 16:01:00 Test Item Value Reference Range Interpretation Comments POTASSIUM (BEAKER) (test code = 3.2 meq/L 3.6-5.5 L 379) HGB/HCT (H&H) - STAT [id number] 16:01:00 Test Item Value Reference Range Interpretation Comments HEMOGLOBIN (BEAKER) (test code = 9.7 GM/DL 13.0-16.8 L 410) HEMATOCRIT (BEAKER) (test code = 29.0 % 40.0-50.0 L 411) BLOOD GAS, [id number] 16:00:00 Test Item Value Reference Range Interpretation [...] (test 37.0 C code = 1818) GLUCOSE-STAT [id number] 16:00:00 Test Item Value Reference Range Interpretation Comments GLUCOSE RANDOM (BEAKER) (test code = 96 mg/dL 70-110 652) SODIUM NA-STAT [id number] 16:00:00 Test Item Value Reference Range Interpretation Comments SODIUM (BEAKER) (test code = 381) 138 meq/L 135-148 PROTHROMBIN TIME/[id number] 10:50:00 Test Item Value Reference Range Interpretation Comments PROTIME (BEAKER) (test code = 29.5 seconds 11.7-14.7 H 759) INR (BEAKER) (test code = 370) 2.8 <=5.9 RECOMMENDED COUMADIN/WARFARIN INR THERAPY RANGESSTANDARD DOSE: 2.0 - 3.0 Includes: PROPHYLAXIS forvenous thrombosis, systemic embolization; TREATMENT for venous thrombosis and/or pulmonary embolus.HIGH RISK: Target INR is 2.5-3.5 for patients with mechanical heart valves.CT, BRAIN, WITHOUT [id number] 10:45:00FINAL REPORT CT, BRAIN, WITHOUT CONTRAST INDICATION: [...] MDReport Verified Date/Time: 03/19/2018 10:45:14 Reading Location: [facility] C013V Neuro Reading Room HROMBIN [id number] 06:27:00 Test Item Value Reference Range Interpretation Comments PROTIME (BEAKER) (test code = 34.3 seconds 11.7-14.7 H 759) INR (BEAKER) (test code = 370) 3.4 <=5.9 RECOMMENDED COUMADIN/WARFARIN INR THERAPY RANGESSTANDARD DOSE: 2.0 - 3.0 Includes: PROPHYLAXIS forvenous thrombosis, systemic embolization; TREATMENT for venous thrombosis and/or pulmonary embolus.HIGH RISK: Target INR is 2.5-3.5 for patients with mechanical heart valves.PT/[id number] 01:58:00 Test Item Value Reference Range Interpretation [...] 2.5-3.5 for patients with mechanical heart valves.PROTHROMBIN TIME/[id number] 01:56:00 Test Item Value Reference Range Interpretation Comments PROTIME (BEAKER) (test code = 33.1 seconds 11.7-14.7 H 759) INR (BEAKER) (test code = 370) 3.2 <=5.9 RECOMMENDED COUMADIN/WARFARIN INR THERAPY RANGESSTANDARD DOSE: 2.0 - 3.0 Includes: PROPHYLAXIS forvenous thrombosis, systemic embolization; TREATMENT for venous thrombosis and/or pulmonary embolus.HIGH RISK: Target INR is 2.5-3.5 for patients with mechanical heart valves.[id number] 01:50:00 Test Item Value Reference Range Interpretation Comments PHOSPHORUS (BEAKER) (test code = 1.9 mg/dL 2.3-4.7 L 604) [id number] 01:50:00 Test Item Value Reference Range Interpretation Comments MAGNESIUM (BEAKER) (test code = 2.3 mg/dL 1.6-2.6 627) BASIC METABOLIC [id number] 01:50:00 Test Item Value Reference Range Interpretation [...] APPLICABLE FOR DIALYSIS PATIEN TS. HEPATIC FUNCTION [id number] 01:50:00 Test Item Value Reference Range Interpretation [...] 0-0 (BEAKER) (test code = 413) PROTHROMBIN [id number] 22:29:00 Test Item Value Reference Range Interpretation Comments PROTIME (BEAKER) (test code = 37.7 seconds 11.7-14.7 H 759) INR (BEAKER) (test code = 370) 3.8 <=5.9 RECOMMENDED COUMADIN/WARFARIN INR THERAPY RANGESSTANDARD DOSE: 2.0 - 3.0 Includes: PROPHYLAXIS forvenous thrombosis, systemic embolization; TREATMENT for venous thrombosis and/or pulmonary embolus.HIGH RISK: Target INR is 2.5-3.5 for patients with mechanical heart valves.[id number] 08:02:00 Test Item Value Reference Range Interpretation Comments TRANSFERRIN (BEAKER) (test code = 132 mg/dL 174-382 L 541) [id number] 08:02:00 Test Item Value Reference Range Interpretation Comments PREALBUMIN (BEAKER) (test code = 586) 7 mg/dL 14-45 L [id number] 07:23:00 Test Item Value Reference Range Interpretation Comments MAGNESIUM (BEAKER) (test code = 2.4 mg/dL 1.6-2.6 627) BASIC METABOLIC [id number] 07:23:00 Test Item Value Reference Range Interpretation [...] APPLICABLE FOR DIALYSIS PATIEN TS. HEPATIC FUNCTION [id number] 07:23:00 Test Item Value Reference Range Interpretation [...] (test code = 48 U/L 6-55 347) [id number] 07:22:00 Test Item Value Reference Range Interpretation Comments PHOSPHORUS (BEAKER) (test code = 2.3 mg/dL 2.3-4.7 604) [id number] 07:02:00 Test Item Value Reference Range Interpretation [...] 2.5-3.5 for patients with mechanical heart valves.PROTHROMBIN TIME/[id number] 06:59:00 Test Item Value Reference Range Interpretation [...] (BEAKER) (test code = 413) U/S, ABDOMINAL, [id number] 01:42:00Right upper quadrant, Assess Liver with ultrasoundAbdomen [...] MDReport Verified Date/Time: 03/18/2018 01:42:08 Reading Location: [address] Reading Room Electronicallysigned by: ILDA MA MD [...] 1584) SOURCE(BEAKER) (test code = Urine, Voided 0583) [id number] 23:39:00 Test Item Value Reference Range Interpretation Comments MAGNESIUM (BEAKER) 2.3 mg/dL 1.6-2.6 Specimen slightly (test code = 627) hemolyzed [id number] 23:39:00 Test Item Value Reference Range Interpretation Comments PHOSPHORUS (BEAKER) 2.2 mg/dL 2.3-4.7 L Specimen slightly (test code = 604) hemolyzed BASIC METABOLIC [id number] 23:39:00 Test Item Value Reference Range Interpretation [...] APPLICABLE FOR DIALYSIS PATIEN TS. HEPATIC FUNCTION [id number] 23:39:00 Test Item Value Reference Range Interpretation [...] Specimen slightly (test code = 347) hemolyzed [id number] 23:38:00 Test Item Value Reference Range Interpretation [...] 0-0 (BEAKER) (test code = 413) BLOOD [id number] 17:01:00 Test Item Value Reference Range Interpretation Comments CULTURE (BEAKER) (test No growth in 5 days code = 1095) BLOOD [id number] 17:01:00 Test Item Value Reference Range Interpretation Comments CULTURE (BEAKER) (test No growth in 5 days code = 1095) [id number] 07:54:00 Test Item Value Reference Range Interpretation Comments PARTIAL THROMBOPLASTIN TIME 97.6 seconds 22.5-36.0 H (BEAKER) (test code = 760) While on warfarin.PROTHROMBIN TIME/[id number] 07:52:00 Test Item Value Reference Range Interpretation [...] (BEAKER) (test code = 413) BASIC METABOLIC [id number] 07:29:00 Test Item Value Reference Range Interpretation [...] TO CALCULA TE ESTIMATED GFR. VANCOMYCIN LEVEL, [id number] 23:50:00 Test Item Value Reference Range Interpretation Comments VANCOMYCIN TROUGH (BEAKER) (test 15.4 ug/mL 10.0-20.0 code = 522) EEG MONITORING WITH VIDEO RECORDING EACH 24 [id number] 15:03:00Date(s) of EE02/14/18; 02/15/18 DATE OF REPORT: 02/15/18 ACC: [id number] EEG Number: [id number] Test Location: Floor 243 Start time: 02/14/18 at 1711 Stop time: 02/15/18 at 1403 ICD-10: [id number] CPT Code: R41.82 HISTORY: 67 year old [...] Fellow Jackson Mosley MD PhD Attending Neurophysiologist [facility] [id number] 07:57:00 Test Item Value Reference Range Interpretation Comments PARTIAL THROMBOPLASTIN TIME 79.9 seconds 22.5-36.0 H (BEAKER) (test code = 760) BASIC METABOLIC [id number] 05:44:00 Test Item Value Reference Range Interpretation [...] DATA TO CALCULA TE ESTIMATED GFR. PROTHROMBIN TIME/[id number] 05:16:00 Test Item Value Reference Range Interpretation [...] WBC 0-0 (BEAKER) (test code = 413) [id number] 02:06:00 Test Item Value Reference Range Interpretation Comments PARTIAL THROMBOPLASTIN TIME 74.3 seconds 22.5-36.0 H (BEAKER) (test code = 760) RAD, ABDOMEN/KUB, 1 VIEW [id number] 21:56:00Reason for exam:->constipation FINAL REPORT CLINICAL HISTORY: [...] Escobar MDReport Verified Date/Time: 02/14/2018 21:56:57 ReadingLocation: [facility] B1 C013T Transitional Reading Room EEG AWAKE AND [id number] 20:02:00Reason for exam:->episodes of fluctuating mentationReason for exam:->Please perform a continous studyDate(s) of EE02/14/18 DATE OF REPORT: 02/14/18 ACC: [id number] EEG Number: [id number] Test Location: Inpatient ICU Start time: 1645 Stop time: 1951 ICD-10: [id number] CPT Code: G40.909 HISTORY: 67 year old [...] Neurophysiology Fellow Jagruti Russo Attending Neurophysiologist [facility] [id number] 19:17:00 Test Item Value Reference Range Interpretation Comments PARTIAL THROMBOPLASTIN TIME 57.2 seconds 22.5-36.0 H (BEAKER) (test code = 760) URINALYSIS W/ REFLEX URINE [id number] 17:40:00 Test Item Value Reference Range Interpretation [...] (test code = 2795) MR, BRAIN, WITHOUT [id number] 12:31:00Has mechanical AV, uncertain if patient can [...] acute intracranial abnorma lity. Signed: Abdi Mg MDReport Verified Date/Time: 02/14/2018 12:31:11 Reading Location: [facility] C0[facility] Neuro Reading Room [id number] 10:56:00 Test Item Value Reference Range Interpretation Comments PARTIAL THROMBOPLASTIN TIME 69.2 seconds 22.5-36.0 H (BEAKER) (test code = 760) BASIC METABOLIC [id number] 04:48:00 Test Item Value Reference Range Interpretation [...] m DATA TO CALCULA TE ESTIMATED GFR. [id number] 04:44:00 Test Item Value Reference Range Interpretation Comments PARTIAL THROMBOPLASTIN TIME 105.1 seconds 22.5-36.0 H (BEAKER) (test code = 760) While on warfarin.PROTHROMBIN TIME/[id number] 04:41:00 Test Item Value Reference Range Interpretation [...] WBC 0-0 (BEAKER) (test code = 413) [id number] 03:18:00 Test Item Value Reference Range Interpretation Comments RPR SCREEN (BEAKER) (test code = Nonreactive Nonreactive 420) [id number] 18:49:00 Test Item Value Reference Range Interpretation Comments PARTIAL THROMBOPLASTIN TIME 70.7 seconds 22.5-36.0 H (BEAKER) (test code = 760) CT, BRAIN, WITHOUT [id number] 13:33:00FINAL REPORT CT head without contrast 02/13/2018 [...] Abdi Mg VerifiedDate/Time: 02/13/2018 13:33:21 Reading Location: [address] Neuro Reading Room [id number] 13:28:00 Test Item Value Reference Range Interpretation Comments PARTIAL THROMBOPLASTIN TIME 69.2 seconds 22.5-36.0 H (BEAKER) (test code = 760) VITAMIN B12 AND [id number] 09:14:00 Test Item Value Reference Range Interpretation Comments VITAMIN B12 (BEAKER) (test code = > pg/mL 213-816 H 774) FOLATE (BEAKER) (test code = 362) 4.8 ng/mL >=7.0 L T4, [id number] 09:13:00 Test Item Value Reference Range Interpretation Comments FREE T4 (BEAKER) (test code = 655) 0.94 ng/dL 0.70-1.48 TSH/FREE T4 IF [id number] 08:18:00 Test Item Value Reference Range Interpretation Comments THYROID STIMULATING HORMONE 9.92 uIU/mL 0.35-4.94 H (BEAKER) (test code = 772) HEMOGLOBIN [id number] 08:06:00 Test Item Value Reference Range Interpretation Comments HEMOGLOBIN A1C (BEAKER) (test code = 5.6 % 4.3-6.1 368) [id number] 06:57:00 Test Item Value Reference Range Interpretation Comments PARTIAL THROMBOPLASTIN TIME 62.5 seconds 22.5-36.0 H (BEAKER) (test code = 760) BASIC METABOLIC [id number] 06:04:00 Test Item Value Reference Range Interpretation [...] WBC 0-0 (BEAKER) (test code = 413) [id number] 05:01:00 Test Item Value Reference Range Interpretation Comments PARTIAL THROMBOPLASTIN TIME 129.9 seconds 22.5-36.0 H (BEAKER) (test code = 760) While on warfarin.PROTHROMBIN TIME/[id number] 04:58:00 Test Item Value Reference Range Interpretation Comments PROTIME (BEAKER) (test code = 18.2 seconds 11.7-14.7 H 759) INR (BEAKER) (test code = 370) 1.5 <=5.9 RECOMMENDED COUMADIN/WARFARIN INR THERAPY RANGESSTANDARD DOSE: 2.0 - 3.0 Includes: PROPHYLAXIS forvenous thrombosis, systemic embolization; TREATMENT for venous thrombosis and/or pulmonary embolus.HIGH RISK: Target INR is 2.5-3.5 for patients with mechanical heart valves.While on warfarin.LIPID [id number] 21:59:00 Test Item Value Reference Range Interpretation [...] 100-129 Borderline 130-159 High 160-189 Very High [id number] 21:47:00 Test Item Value Reference Range Interpretation Comments PARTIAL THROMBOPLASTIN TIME 75.6 seconds 22.5-36.0 H (BEAKER) (test code = 760) HEMOGLOBIN AND [id number] 21:38:00 Test Item Value Reference Range Interpretation Comments HEMOGLOBIN (BEAKER) (test code = 8.6 GM/DL 13.7-17.5 L 410) HEMATOCRIT (BEAKER) (test code = 28.0 % 40.1-51.0 L 411) CT, CTANGIO [id number] 18:19:00FINAL REPORT CTA carotids and brain 02/12/2018 [...] Bilateral small volume pleural effusions. Signed: Abdi Mgort Verified Date/Time: 02/12/2018 18:19:07 Reading Location: [facility] Radiology Reading Room CT, CAROTID, [id number] 18:19:00FINAL REPORT CTA carotids and brain 02/12/2018 [...] Mg Verified Date/Time: 02/12/2018 18:19:07 Reading Location: [facility] Radiology Reading Room BASI METABOLIC [id number] 15:37:00 Test Item Value Reference Range Interpretation [...] m DATA TO CALCULA TE ESTIMATED GFR. [id number] 15:07:00 Test Item Value Reference Range Interpretation Comments PARTIAL THROMBOPLASTIN TIME 77.4 seconds 22.5-36.0 H (BEAKER) (test code = 760) HEMOGLOBIN AND [id number] 14:59:00 Test Item Value Reference Range Interpretation Comments HEMOGLOBIN (BEAKER) (test code = 8.7 GM/DL 13.7-17.5 L 410) HEMATOCRIT (BEAKER) (test code = 27.7 % 40.1-51.0 L 411) POCT-GLUCOSE [id number] 12:31:00 Test Item Value Reference Range Interpretation Comments POC-GLUCOSE METER 118 mg/dL 70-110 H TESTED AT [facility] [address] ([facility]) (test code = CHACHA VASQUEZ [place] 1538) [id number] CT, BRAIN/STROKE [id number] 12:24:00FINAL REPORT CT head without contrast INDICATION: [...] MDReport Verified Date/Time: 02/12/2018 12:24:12 Reading Location: [facility] Radiology Reading Room [id number] 07:08:00 Test Item Value Reference Range Interpretation Comments PARTIAL THROMBOPLASTIN TIME 119.2 seconds 22.5-36.0 H (BEAKER) (test code = 760) While on warfarin.PROTHROMBIN TIME/[id number] 06:53:00 Test Item Value Reference Range Interpretation Comments PROTIME (BEAKER) (test code = 17.0 seconds 11.7-14.7 H 759) INR (BEAKER) (test code = 370) 1.4 <=5.9 RECOMMENDED COUMADIN/WARFARIN INR THERAPY RANGESSTANDARD DOSE: 2.0 - 3.0 Includes: PROPHYLAXIS forvenous thrombosis, systemic embolization; TREATMENT for venous thrombosis and/or pulmonary embolus.HIGH RISK: Target INR is 2.5-3.5 for patients with mechanical heart valves.While on warfarin.HEMOGLOBIN AND [id number] 06:47:00 Test Item Value Reference Range Interpretation [...] WBC 0-0 (BEAKER) (test code = 413) [id number] 23:21:00 Test Item Value Reference Range Interpretation Comments PARTIAL THROMBOPLASTIN TIME 55.4 seconds 22.5-36.0 H (BEAKER) (test code = 760) HEMOGLOBIN AND [id number] 22:51:00 Test Item Value Reference Range Interpretation Comments HEMOGLOBIN (BEAKER) (test code = 8.8 GM/DL 13.7-17.5 L 410) HEMATOCRIT (BEAKER) (test code = 29.5 % 40.1-51.0 L 411) POCT-GLUCOSE [id number] 17:14:00 Test Item Value Reference Range Interpretation Comments POC-GLUCOSE METER 128 mg/dL 70-110 H TESTED AT [facility] [address] (BEAKER) (test code = CHACHA [place]BOR[place] 1538) [address] [id number] 15:48:00 Test Item Value Reference Range Interpretation Comments PARTIAL THROMBOPLASTIN TIME 33.7 seconds 22.5-36.0 (BEAKER) (test code = 760) Prior to initiating heparinHEMOGLOBIN AND [id number] 13:58:00 Test Item Value Reference Range Interpretation Comments HEMOGLOBIN (AMADOR) (test code = 8.5 GM/DL 13.7-17.5 L 410) HEMATOCRIT (AMADOR) (test code = 26.6 % 40.1-51.0 L 411) POCT-GLUCOSE [id number] 12:17:00 Test Item Value Reference Range Interpretation Comments POC-GLUCOSE METER 124 mg/dL 70-110 H TESTED AT [facility] [address] ([place]) (test code = CHACHA VASQUEZ [place] 1538) [id number] RAD, CHEST, 1 VIEW, NON [id number] 07:19:00Reason for exam:->hypoxia; eval for perforated viscusShould [...] RobertMDReport Verified Date/Time: 02/11/2018 07:19:35 Reading Location: [address] Neuro Reading Room RAD, ABDOMEN/KUB, 1 VIEW [id number] 07:18:00Reason for exam:->eval for perforated viscusShould this [...] MDReport Verified Date/Time: 02/11/2018 07:18:28 Reading Location: [facility] C013V Neuro Reading Room COMPREHENSIVE METABOLIC PANEL 2018-02-11 [...] DATA T O CALCULATE ESTIM ATED GFR. [id number] 06:07:00 Test Item Value Reference Range Interpretation Comments PHOSPHORUS (BEAKER) (test code = 3.3 mg/dL 2.3-4.7 604) [id number] 06:07:00 Test Item Value Reference Range Interpretation Comments MAGNESIUM (BEAKER) (test code = 1.8 mg/dL 1.6-2.6 627) PROTHROMBIN TIME/[id number] 05:46:00 Test Item Value Reference Range Interpretation [...]
--- NOTE | 2021-07-02 12:57 | RAD REPORT ---
EXAM DESCRIPTION: CT - Thorax Wo Con CLINICAL HISTORY: Chest pain SMASH INJURY COMPARISON: No comparisons FINDINGS: Emphysematous lung spring are noted. Small reticular opacity in the right upper lobe is pr esent likely in minimal alveolitis. Postsurgical changes of a CABG noted. 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 Small hiatal hernia. Anterolateral right seventh and eighth ribs demonstrate mild angulated fracture. No gross upper abdom inal finding. All CT scans are performed using dose optimization technique as appropriate and may include automated exposure control or mA/KV adjustment according to patient size. IMPRESSION: Fracture of the anterolateral right seventh and eighth ribs.
--- NOTE | 2021-07-02 13:00 | RAD REPORT ---
EXAM DESCRIPTION: CT - CTHCSPWOC - 07/02/2021 12:45 pm CLINICAL HISTORY: Trauma, head and neck injury. SMASH INJURY COMPARISON: No comparisons TECHNIQUE: Axial 5 mm thick images of the head were obtained. Axial 2 mm thick images of the cervical spine were obtained with sagittal and coronal reconstruction images generated and reviewed. All CT scans are performed using dose optimization technique as appropriate and may include automated exposure control or mA/KV adjustment according to patient size. FINDINGS: CT HEAD WITHOUT CONTRAST: No acute hemorrhage, hydrocephalus or extra-axial collection is identified.Mild brain atrophy.No area s of brain edema or midline shift. The paranasal sinuses and mastoids are clear.The calvarium is intact. CT CERVICAL SPINE WITHOUT CONTRAST: No fracture or subluxation.Mild lower cervical degenerative spondylosis.No prevertebral soft tissues swelling is identified. IMPRESSION: No acute intracranial or cervical spine findings.
[2021-07-02 13:15] LABS: Absolute Lymphocytes (CBC) 1.5 K/uL (0.7-4.9); Hematocrit 40.4 % (39.6-49.0); Lymphocytes % 13.8 % (15.3-44.8); MPV 7.2 fL (7.6-11.3); RBC Red Blood Cell Count 4.12 M/uL (4.33-5.43)
[2021-07-02 13:16] LABS: Protime INR 3.95
[2021-07-02] MEDS ORDERED: KETOROLAC 30 MG/ML INJ ONE (13:46)
[2021-07-02 13:57] LABS: Blood Morphology Comment NOT SEEN (NOT SEEN); Platelet Estimate ADEQ; White Blood Cell Scan OK (OK)
[2021-07-02 14:05] LABS: Potassium 4.7 mmol/L (3.5-5.1)
[2021-07-02] MEDS ORDERED: DERMABOND SKIN ADHESIVE TOP ONE (14:32)
[2021-07-02] MEDS ORDERED: LIDOCAINE 1% MPF 5 ML VIAL ONE (14:32)
--- NOTE | 2021-07-02 14:41 | ER ---
Nurse's Notes [facility] Name: Abdirizak Diaz Age: 71 yrs Sex: Male : 1950 Arrival Date: 07/02/2021 Time: 12:25 Bed 7 Private MD: Diagnosis: Fall, forehead laceration, rib fractures Presentation: 07/02 12:25 Chief complaint: EMS states: Pt took extra Gabapentin today, became dizzy when walking [facility] and fell forward striking his forehead and rt chest. 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 Coronavirus screen: Vaccine status: Patient reports receiving the 2nd dose of the covid vaccine. Client denies travel out of the [place] in the last 14 days. Ebola Screen: Patient negative for fever greater than or equal to 101.5 degrees Fahrenheit, and additional compatible Ebola Virus Disease symptoms Patient denies exposure to infectious person. Patient denies travel to an Ebola-affected area in the 21 days before illness onset. Initial Sepsis Screen: Does the patient meet any 2 criteria? No. Patient's initial sepsis screen is negative. Does the patient have a suspected source of infection? No. Patient's initial sepsis screen is negative. Risk Assessment: Do you want to hurt yourself or someone else? Patient reports no desire to harm self or others. Onset of symptoms was July 02, 2021. 12:25 Method Of Arrival: EMS: [facility] 12:25 Acuity: ERIBERTO 2 [facility] Triage Assessment: 12:30 General: Appears in no apparent distress. uncomfortable, Behavior is cooperative. Pain: [facility] Complains of pain in forehead Pain currently is 5 out of 10 on a pain scale. Quality of pain is described as dull, throbbing, Pain began suddenly, Is continuous. Neuro: No deficits noted. Level of Consciousness is awake, alert, obeys commands, Oriented to person, place, time, situation, Photography Spotter are equal bilaterally Moves all extremities. Gait is steady. Respiratory: No deficits noted. Reports pain with movement rt rib pain. Historical: - Allergies: 12:29 Aspirin; [facility] 12:29 Keppra; [facility] - Home Meds: 12:29 atorvastatin 40 mg Oral tab 1 tab once daily [Active]; [facility] - PSHx: 12:29 Cholecystectomy; mechanical valve; jh6 - Immunization history:: Adult Immunizations up to date, Client reports receiving the 2nd dose of the Covid vaccine, Last tetanus immunization: up to date. - Social history:: Smoking status: unknown Patient uses. Screenin:31 Abuse screen: Denies threats or abuse. Nutritional screening: No deficits noted. jh6 Tuberculosis screening: No symptoms or risk factors identified. Fall Risk Fall in past 12 months (25 points). Secondary diagnosis (15 points) impaired mobility. Assessment: 13:35 Reassessment: No changes from previously documented assessment. Patient and/or family jg9 updated on plan of care and expected duration. Pain level reassessed. 14:30 Reassessment: No changes from previously documented assessment. Patient states feeling jh6 better. 14:30 Pain: Complains of pain in diaphragm Pain does not radiate. Pain currently is 4 out of jh6 10 on a pain scale. Quality of pain is described as sharp, Pain began suddenly, Is continuous, Aggravated by exercise, increased activity, repositioning. 15:31 Reassessment: Patient and/or family updated on plan of care and expected duration. Pain jh6 level reassessed. pt tolerated sutures and with daughter at bedside, verbal understanding of d.c instructions an wound care. copy of all labs and exams given to pt for pcp Patient states symptoms have improved. Vital Signs: 12:25 BP 173 / 87; Pulse 74; Resp 18; Temp 97.7(O); Pulse Ox 99% ; Weight 89.81 kg; Height 5 6 ft. 11 in. (180.34 cm); 13:33 BP 139 / 75; Pulse 73; Resp 20 S; Pulse Ox 96% on R/A; jg9 12:25 Body Mass Index 27.62 (89.81 kg, 180.34 cm) 6 ED Course: 12:[address] jh6 12:20 CC/BB removed without complication and while holding c spine. no neck pain or back pain jh6 with palpation. 12:25 Patient arrived in ED. bd 12:25 Tamanna Bassett, CARMEN is Primary Nurse. jh6 12:25 Rose Tan MD is Attending Physician. sp3 12:25 Arm band placed on right wrist. jh6 12:29 Triage completed. jh6 12:31 Placed in gown. Bed in low position. Call light in reach. Side rails up X2. jh6 12:47 CT Chest Wo Con In Process Unspecified. EDMS 12:48 CT Head C Spine In Process Unspecified. EDMS 13:35 No apparent distress. Resting quietly. Pt visited by daughter. jg9 15:00 Assist provider with laceration repair on forehead that was 2.5 cm. or less using 6 sutures. Set up tray. Dressed with band aid, Patient tolerated well. 15:32 IV discontinued, intact, bleeding controlled, No redness/swelling at site. Pressure 6 dressing applied. Administered Medications: 13:51 Drug: Ketorolac 30 mg Route: IVP; Site: right hand; 14:50 Follow up: Response: Pain is decreased [facility] Outcome: 14:40 Discharge ordered by . komal 15:32 Discharged to home via wheelchair. 6 15:32 Condition: improved 15:32 Discharge instructions given to patient, Instructed on discharge instructions, follow up and referral plans. Demonstrated understanding of instructions, follow-up care, wound care. 15:33 Patient left the ED. 6 Signatures: Dispatcher [employer] EDMS Renae Reyes Irene, RN RN iw Rose Tan MD MD sp3 Tamanna Bassett, RN CARMEN jh6 Tamanna Gomez, CARMEN RN jg9
--- NOTE | 2021-07-02 14:41 | EDPHYS ---
Physician Documentation [facility] Name: Abdirizak Diaz Age: 71 yrs Sex: Male : 1950 Arrival Date: 07/02/2021 Time: 12:25 Bed 7 Private MD: ED Physician Rose Tan HPI: 07/02 12:39 This 71 yrs old Male presents to ER via EMS with complaints of Head injury and sp3 dizziness. 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 EMS was activated to bring the patient to the ER with minimal bleeding. Patient is on Coumadin as stated above. He denies full LOC, neck pain, back pain, abdominal pain, nausea, vomiting, diarrhea, rash, neurological symptoms, or any other critical findings at this time.. Historical: - Allergies: 12:29 Aspirin; 6 12:29 Keppra; [facility] - Home Meds: 12:29 atorvastatin 40 mg Oral tab 1 tab once daily [Active]; [facility] - PSHx: 12:29 Cholecystectomy; mechanical valve; [facility] - Immunization history:: Adult Immunizations up to date, Client reports receiving the 2nd dose of the Covid vaccine, Last tetanus immunization: up to date. - Social history:: Smoking status: unknown Patient uses. ROS: 12:43 Constitutional: Negative for fever, chills, and weight loss, Eyes: Negative for injury, sp3 pain, redness, and discharge, Neck: Negative for injury, pain, and swelling, Cardiovascular: Negative for chest pain, palpitations, and edema, Abdomen/GI: Negative for abdominal pain, nausea, vomiting, diarrhea, and constipation, Back: Negative for injury and pain, MS/Extremity: Negative for injury and deformity, Skin: Negative for injury, rash, and discoloration, Psych: Negative for depression, anxiety, suicide ideation, homicidal ideation, and hallucinations, Allergy/Immunology: Negative for hives, rash, and allergies, Endocrine: Negative for neck swelling, polydipsia, polyuria, polyphagia, and marked weight changes, Hematologic/Lymphatic: Negative for swollen nodes, abnormal bleeding, and unusual bruising. 12:43 All other systems are negative. Exam: 12:44 Constitutional: This is a well developed, well nourished patient who is awake, alert, sp3 and in no acute distress. Eyes: Pupils equal round and reactive to light, extra-ocular motions intact. Lids and lashes normal. Conjunctiva and sclera are non-icteric and not injected. Cornea within normal limits. Periorbital areas with no swelling, redness, or edema. ENT: Nares patent. No nasal discharge, no septal abnormalities noted. External auditory canals are clear. Oropharynx with no redness, swelling, or masses, exudates, or evidence of obstruction, uvula midline. Mucous membranes moist. Neck: Trachea midline, no thyromegaly or masses palpated, and no cervical lymphadenopathy. Supple, full range of motion without nuchal rigidity, or vertebral point tenderness. No Meningismus. Cardiovascular: Regular rate and rhythm with a normal S1 and S2. No gallops, murmurs, or rubs. Normal PMI, no JVD. No pulse deficits. Respiratory: Lungs have equal breath sounds bilaterally, clear to auscultation and percussion. No rales, rhonchi or wheezes noted. No increased work of breathing, no retractions or nasal flaring. Abdomen/GI: Soft, non-tender, with normal bowel sounds. No distension or tympany. No guarding or rebound. No evidence of tenderness throughout. Back: No spinal tenderness. No costovertebral tenderness. Full range of motion. Skin: Warm, dry with normal turgor. Normal color with no rashes, no lesions, and no evidence of cellulitis. MS/ Extremity: Pulses equal, no cyanosis. Neurovascular intact. Full, normal range of motion. Neuro: Awake and alert, GCS 15, oriented to person, place, time, and situation. Cranial nerves II-XII grossly intact. Motor strength 5/5 in all extremities. Sensory grossly intact. Cerebellar exam normal. Normal gait. Psych: Awake, alert, with orientation to person, place and time. Behavior, mood, and affect are within normal limits. 12:44 Head/face: Forehead abrasion and superficial lacerations to forehead with minimal bleeding.. 12:44 Chest/axilla: She has pain to palpation over the right anterior ribs without abdominal pain and lung sounds are normal.. Vital Signs: 12:25 BP 173 / 87; Pulse 74; Resp 18; Temp 97.7(O); Pulse Ox 99% ; Weight 89.81 kg; Height 5 jh6 ft. 11 in. (180.34 cm); 13:33 BP 139 / 75; Pulse 73; Resp 20 S; Pulse Ox 96% on R/A; jg9 12:25 Body Mass Index 27.62 (89.81 kg, 180.34 cm) 6 MDM: 12:27 Patient medically screened. sp3 12:45 Data reviewed: vital signs, nurses notes. ED course: A couple include trauma work-up of sp3 the CT scans of the head, C-spine and chest, along with medical work-up of laboratory values, PT/INR, EKG, troponin. I am not highly suspicious for any critical medical findings patient likely just became lightheaded due to postural changes. Low suspicion for acute coronary syndrome, aortic pathology, PE, infection/sepsis, or any other critical diagnoses at this time.. 14:38 ED course: Troponin is now negative completing his work-up. Cleaning of the wound, sp3 patient has a 1 cm laceration on his forehead which will require repair which the physician server assistant team will be handling for me. CT head and C-spine are negative and chest CT demonstrates 2 rib fractures at ribs 7 and 8 anterior laterally.. 07/02 12:27 Order name: Basic Metabolic Panel; Complete Time: 14:07 sp3 07/02 12:27 Order name: CBC with Diff; Complete Time: 14:07 sp3 07/02 12:27 Order name: PT-INR; Complete Time: 13:36 sp3 07/02 12:29 Order name: Troponin High Sensitivity; Complete Time: 14:38 sp3 07/02 13:57 Order name: CBC Smear Scan; Complete Time: 14:07 EDMS 07/02 12:27 Order name: CT Chest Wo Con; Complete Time: 13:11 sp3 07/02 12:27 Order name: CT Head C Spine; Complete Time: 13:11 sp3 07/02 12:27 Order name: IV Saline Lock; Complete Time: 13:33 sp3 07/02 12:27 Order name: Labs collected and sent; Complete Time: 13:33 sp3 07/02 12:29 Order name: EKG - Nurse/Tech; Complete Time: 13:33 sp3 07/02 13:18 Order name: Labs - recollect needed: recollect all labs; Complete Time: 13:32 bd Administered Medications: 13:51 Drug: Ketorolac 30 mg Route: IVP; Site: right hand; 14:50 Follow up: Response: Pain is decreased jh6 Disposition Summary: 07/02/21 14:40 Discharge Ordered Location: Home sp3 Condition: Stable sp3 Diagnosis - Fall, forehead laceration, rib fractures sp3 Followup: sp3 - With: Private Physician - When: Upon discharge from the Emergency Department - Reason: Further diagnostic work-up, Recheck today's complaints Discharge Instructions: - Discharge Summary Sheet sp3 - Fall Prevention in the Home, Adult sp3 - Facial Laceration sp3 - Rib Fracture sp3 Forms: - Medication Reconciliation Form sp3 - Thank You Letter sp3 - Antibiotic Education sp3 - Prescription Opioid Use sp3 Signatures: Dispatcher [employer] EDMS Renae Reyes bd Marichuy Beyer RN RN Rose Tan MD MD 3 Tamanna Bassett RN RN 6 Corrections: (The following items were deleted from the chart) 12:47 12:28 Head Brain Wo [id number] ordered. EDMS EDMS 13:59 13:21 Manual Differential ordered. EDMS EDMS
[2021-07-02 22:12] VITALS: BP 139/75; O2SAT 96
[2021-07-02 22:13] VITALS: TEMP 97.7
--- NOTE | 2021-07-03 16:41 | EKG ---
Test Date: 2021-07-02 Test Time: 13:08:37 Mobile Application Engineer: [place] MEASUREMENT RESULTS: Intervals: Rate: 74 AK: 196 QRSD: 110 QT: 396 QTc: 439 [place]: P: 43 AK: 196 QRS: -34 T: 84 INTERPRETIVE STATEMENTS: Normal sinus rhythm Left axis deviation Voltage criteria for left ventricular hypertrophy Abnormal ECG Compared to ECG 02/05/2021 08:10:45 Left-axis deviation now present Ventricular premature complex(es) no longer present T-wave abnormality no longer present Prolonged QT interval no longer present Electronically Signed On 07-03-21 16:40:13 CDT by Jose Haynes
== END 2021-07-02 15:33 | disposition home or self-care (01) ==
LOC: ER 12:14
PROC: 0JQ10ZZ Repair Face Subcutaneous Tissue and Fascia, Open Approach (ICD-10-PCS; principal; 2021-07-02)
DX: S01.81XA Laceration without foreign body of other part of head, initial encounter (principal); S22.41XA Multiple fractures of ribs, right side, initial encounter for closed fracture; W18.30XA Fall on same level, unspecified, initial encounter; Z95.4 Presence of other heart-valve replacement; Z79.01 Long term (current) use of anticoagulants; Z88.6 Allergy status to analgesic agent; Z88.8 Allergy status to other drugs, medicaments and biological substances
CPT/HCPCS: 36415; 70450; 71250; 72125; 80048; 84484; 85025; 85610; 93005; 96374; 99284

== ENCOUNTER 2024-07-07 01:41 | Emergency (ER) | payer OTHER ==
--- OUTSIDE RECORDS SUMMARY | 2024-07-07 01:50 | XMS REPORT | Continuity of Care Document ---
Author Name Unknown Address [address] [facility] [address] [place] [address] [facility] [place] Address [address] [facility] 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 Phone VICKY KELSEY Primary Care Physician UnavailSavage Meneses Attending Clinician Unavailable CHUCKIE AGUILAR Attending Clinician WILI Barry Attending Clinician Unavailable DAVID FISH Attending Clinician UnavailDavid Aranda MD Attending Clinician [phone] NED MALONE Attending Clinician Unavailable Sherin Minor MD Attending Clinician [phone] SHERIN MINOR Attending Clinician Unavailable Ned Malone MD Attending Clinician [phone] Ned Malone MD Attending Clinician [phone] Doctor Unassigned, [place] Attending Clinician U FATIMAH Jenkins Attending Clinician UnavailFatimah Hubbard Attending Clinician [phone] Chuckie Aguilar Attending Clinician [phone] Citlali Lea Attending Clinician [phone] , [facility] Procedure Attending Clinician Unavailable Pob, [facility] Main Attending Clinician Unavailjoseline [facility] 2, [facility] Attending Clinician Unavailable BILLY POSADAS Attending Clinician Unavailable ISRRAEL LOPEZ Attending Clinician UnaAYAN Pugh Attending Clinician Unavailable CHUCKIE AGUILAR Admitting Clinician UnaWILI Hanley Admitting Clinician Unavailable DAVID FISH Admitting Clinician UnavailDavid Aranda MD Admitting Clinician [phone] NED MALONE Admitting Clinician Unavailable VASU SEVERINO Admitting Clinician Selene BILLY Monge Admitting Clinician Unavailable ISRRAEL LOPEZ Admitting Clinician UnaAYAN Pugh Admitting Clinician Unavailable Payers Payer Name Policy Type Policy Number Effective Date Expirati on Date Source UNITED MEDICARE HMO [id number] 2021 00:00:00 [employer] MEDICARE HMO POS [id number] 2017 00:00:00 2019 00:00:00 CARE IMPROVEMENT PLUS [id number] 2019 00:00:00 [employer] MCARE ADV PPO [id number] 2023 00:00:00 [facility] MEDICARE ADVANTAGE Medicare [id number] 2023 00:00:00 [facility] Advantage (HMO-POS) [id number] [facility] Problems Condition Name Condition Details Condition Category Status Onset Date Resolution Date Last Treatment Date Treating Clinician Comments Source UGIB (upper gastrointe stinal bleed) UGIB (upper gastrointe stinal bleed) Disease Active 2019-03 2- 00:00: 00 [facility] Wound infection Wound infection Disease Recurre nce 04-26 00:00: 00 [facility] Abscess Abscess Disease Active 04-26 00:00: 00 [facility] Wound dehiscence Wound dehiscence Disease Active 04-26 00:00: 00 [facility] Rectus sheath hematoma Rectus sheath hematoma Disease Active 03-30 00:00: 00 [facility] Urinary retention Urinary retention Disease Active 03-30 00:00: 00 [facility] Chronic diastolic heart failure Chronic diastolic heart failure Disease Recurre rie 2017-03 00:00: 00 [facility] PUD (peptic ulcer disease) PUD (peptic ulcer disease) Disease Recurre nce 2017-03 00:00: 00 [facility] Acute hemorrhagi c cholecysti tis Acute hemorrhagi c cholecysti tis Disease Active 2017-03 00:00: 00 [facility] S/P cholecyste ctomy S/P cholecyste ctomy Disease Active 2017-03 00:00: 00 [facility] Acute pain Acute pain Disease Active 2017-03 00:00: 00 [facility] Elevated INR (internati onal normalized ratio) due to prior anticoagul ant medication ingestion Elevated INR (internati onal normalized ratio) due to prior anticoagul ant medication ingestion Disease Active 2017-03 00:00: 00 [facility] Encephalop athy Encephalop athy Disease Active 2017-03 00:00: 00 [facility] Abdominal pain Abdominal pain Disease Active 2017-03 00:00: 00 [facility] Acute GI bleeding Acute GI bleeding Disease Active 2017-03 00:00: 00 [facility] Valvular heart disease Valvular heart disease Disease Active 2017-03 00:00: 00 [facility] Physical deconditio rick Physical deconditio rick Disease Active 2017-03 00:00: 00 [facility] Hypertensi on Hypertensi on Disease Active 2017-03 00:00: 00 [facility] Constipati on Constipati on Disease Active 2017-03 00:00: 00 [facility] Esophagiti s determined by endoscopy Esophagiti s determined by endoscopy Disease Active 2017-03 00:00: 00 [facility] Seizure disorder Seizure disorder Disease Recurre nce 2017-03 00:00: 00 [facility] Protein-ca primo malnutriti on, moderate Protein-ca primo malnutriti on, moderate Disease Recurre nce 2017-03 00:00: 00 [facility] Esophageal ulcer with bleeding Esophageal ulcer with bleeding Disease Active 2017-03 00:00: 00 [facility] H/O aortic valve replacemen t H/O aortic valve replacemen t Disease Active 2017-03 00:00: 00 [facility] Benign essential HTN Benign essential HTN Disease Active 2017-03 00:00: 00 [facility] HLD (hyperlipi demia) HLD (hyperlipi demia) Disease Active 2017-03 00:00: 00 [facility] Acute blood loss anemia Acute blood loss anemia Disease Active 2017-03 00:00: 00 [facility] [id number] Tear of right rotator cuff, unspecifie d tear extent, unspecifie d whether traumatic Problem [facility] No known active problems No known active problems Disease [facility] Allergies, Adverse Reactions, Alerts Allergy Name Allergy Type Status Severity Reaction(s) Onset Date Inactive Date Treating Clinician Comments Source Levetira cetam Propensi ty to adverse reaction s Active Unknown - See comments 06-18 00:00: 00 [facility] LEVETIRA CETAM DRUG INGREDI Active High Unknown-Cmnt 06-18 00:00: 00 [facility] ASPIRIN Allergy Active Hives 2019-03 00:00: 00 [facility] Aspirin Drug Allergy Active Hives 2019-03 00:00: 00 [facility] LEVETIRA CETAM Allergy Active 2019-03 00:00: 00 [facility] Levetira cetam Propensi ty to adverse reaction s Active 2019-03 00:00: 00 [facility] LEVETIRA CETAM Allergy Active Med Other 2017-03 00:00: 00 [facility] ASPIRIN Allergy Active 2017-03 00:00: 00 [facility] Levetira cetam Drug Allergy Active Other (See Comments) 2017-03 00:00: 00 unknown [facility] ALLERGIE S NOT ON FILE SYSTEMIC Active MHEOUT ALLERGIE S NOT ON FILE SYSTEMIC Active MHEOUT ALLERGIE S NOT ON FILE SYSTEMIC Active MHEOUT NO KNOWN ALLERGIE S SYSTEMIC Active MHEOUT NO KNOWN ALLERGIE S SYSTEMIC Active MHEOUT Family History Family Member Diagnosis Comments Start Date Stop Date Sourc e Natural mother Hyperlipidemia [facility] Social History Social Habit Start Date Stop Date Quantity Comments Source Gender identity 2023-11-18 11:32:11 Identifies as male gender (finding) [facility] Sexual orientation [facility] History of Tobacco Use [facility] History SDOH Alcohol Std Drinks [facility] History SDOH Alcohol Binge [facility] Tobacco use and exposure 2024-06-29 00:00:00 2024-06-29 00:00:00 Smokeless tobacco non-user [facility] History of Social function 2023-04-14 00:00:00 2023-04-14 00:00:00 [facility] Alcoholic beverage intake 2022-03-02 00:00:00 2022-03-02 00:00:00 Current drinker of alcohol (finding) [facility] Alcohol intake 2022-03-02 00:00:00 2022-03-02 00:00:00 .14 /d [facility] Exposure to SARS-CoV-2 (event) 2021-12-16 00:00:00 2021-12-26 13:35:00 Not sure [facility] Tobacco Comment 2020-03-09 00:00:00 2020-03-09 00:00:00 quitted 25 years ago [facility] Alcohol Comment 2020-03-09 00:00:00 2020-03-09 00:00:00 occasional [facility] History SDOH Alcohol Frequency 2018-02-11 00:00:00 2018-02-11 00:00:00 1 [facility] Sex 2018-02-10 22:48:40 2018-02-10 22:48:40 Male (finding) [facility] Sex assigned at 1950 00:00:00 1950 00:00:00 [facility] Smoking Status Start Date Stop Date Source Never smoked tobacco [facility] Tobacco smoking consumption unknown [facility] Ex-smoker 2020-03-09 00:00:00 2020-03-09 00:00:00 [facility] Medications Ordered Medication Name Filled Medication Name Start Date Stop Date Current Medication? Ordering Clinician Indication Dosage Frequency Signature (SIG) Comments Components Source cyclopent 1%-tropic 1%-phenyl 2.5%-ketor 0.5% (MYDRIATIC #5) ophthalmic solution syringe 0.5 mL 07-06 13:15: 00 07-06 13:18 :00 No .5mL 0.5 mL, Left Eye, ONCE, 1 dose, On Thu07/06/24 at 0815, Routine, DSU Pre-op [facility] Dexlansopra zole 60 mg capsule 07-06 10:56: 37 Yes 60mg Take 1 capsule by mouth in the morning. [facility] fenofibrate 145 mg tablet 07-06 10:56: 37 Yes 145mg Take 1 tablet by mouth in the morning. [facility] hydroxychlo roquine 200 mg tablet 07-06 10:56: 37 Yes 200mg Take 1 tablet by mouth in the morning and 1 tablet in the evening. [facility] Cholecalcif murray, Vitamin D3, 125 mcg (5,000 unit) tablet 07-06 10:56: 37 Yes 5000U Take 1 tablet by mouth in the morning. [facility] lacosamide (Vimpat) 200 mg tablet tablet lacosamide (Vimpat) 200 mg tablet tablet 11-23 14:30: 03 Yes 200mg Q.5D Take 200 mg by mouth in the morning and 200 mg in the evening. 150mg in the morning, 200mg at night. [facility] valsartan (Diovan) 80 MG tablet valsartan (Diovan) 80 MG tablet 11-23 14:19: 39 Yes 80mg QD Take 80 mg by mouth 1 time each day. [facility] tamsulosin (Flomax) 0.4 MG 24 hr capsule tamsulosin (Flomax) 0.4 MG 24 hr capsule 11-23 14:19: 38 Yes .8mg Take 0.8 mg by mouth at bedtime. [facility] tadalafil (Cialis) 5 MG tablet tadalafil (Cialis) 5 MG tablet 11-23 14:19: 37 Yes 5mg QD Take 5 mg by mouth 1 time each day. [facility] gabapentin (Neurontin) 600 MG tablet gabapentin (Neurontin) 600 MG tablet 11-23 14:19: 36 Yes 600mg Take 600 mg by mouth in the evening. [facility] lamoTRIgine (LaMICtal) 200 MG tablet lamoTRIgine (LaMICtal) 200 MG tablet 11-23 14:19: 36 Yes 1{tbl} Take 1 tablet by mouth in the evening. [facility] finasteride (Proscar) 5 MG tablet finasteride (Proscar) 5 MG tablet 11-23 14:19: 35 Yes 5mg QD Take 5 mg by mouth 1 time each day. [facility] dexlansopra zole (Dexilant) [address] capsule dexlansopra zole (Dexilant) [address] capsule 11-23 14:19: 34 Yes 60mg QD Take 60 mg by mouth 1 time each day. [facility] cyanocobala min (Vitamin B-12) 1000 MCG tablet cyanocobala min (Vitamin B-12) 1000 MCG tablet 11-23 14:19: 33 Yes 1200ug QD Take 1,200 mcg by mouth 1 time each day. [facility] cholecalcif murray (D-5000) 5,000 Units tablet cholecalcif murray (D-5000) 5,000 Units tablet 11-23 14:19: 32 Yes 5000U Take 5,000 Units by mouth. [facility] ([facility]) [facility] ([facility]) 11-23 14:19: 32 Yes 1{capsu le} QD Take 1 capsule by mouth 1 time each day. [facility] b complex vitamins capsule b complex vitamins capsule 11-23 14:19: 31 Yes 1{capsu le} QD Take 1 capsule by mouth 1 time each day. [facility] atorvastati n (Lipitor) 40 MG tablet atorvastati n (Lipitor) 40 MG tablet 11-23 14:19: 30 Yes 40mg QD Take 40 mg by mouth 1 time each day. [facility] warfarin (Coumadin) 3 MG tablet warfarin (Coumadin) 3 MG tablet 11-05 00:00: 00 Yes 4mg Take 4 mg by mouth at bedtime. [facility] lamoTRIgine 200 mg tablet 09-27 00:00: 00 Yes 200mg Take 1 tablet by mouth every evening. [facility] lamoTRIgine 150 mg tablet 09-21 00:00: 00 Yes 150mg Take 1 tablet by mouth in the morning. [facility] fenofibrate (Tricor) 145 MG tablet fenofibrate (Tricor) 145 MG tablet 09-14 00:00: 00 Yes 1{tbl} QD Take 1 tablet by mouth 1 time each day. [facility] levothyroxi ne (Synthroid, Levoxyl) 50 MCG tablet levothyroxi ne (Synthroid, Levoxyl) 50 MCG tablet 09-10 00:00: 00 Yes 1{tbl} QD Take 1 tablet by mouth 1 time each day. [facility] tadalafiL 5 mg tablet 06-16 16:11: 02 Yes 5mg Take 1 tablet by mouth every evening. [facility] sildenafiL 100 mg tablet 06-16 16:10: 25 06-16 00:00 :00 No TAKE ONE (1) TABLET(S) BY MOUTH 30 MINUTES BEFORE SEX. [facility] warfarin 1 mg tablet 06-16 16:10: 23 Yes warfarin 1 mg tablet 2 mg on M,W,F and 1 mg on T,T, S and S [facility] Lacosamide (VIMPAT) 100 mg tablet 06-16 16:10: 23 Yes 200mg Take 2 tablets by mouth in the morning and 2 tablets in the evening. [facility] topiramate 25 mg tablet 06-16 16:10: 23 Yes Take 1 tablet every day by oral route. [facility] esomeprazol e (NEXIUM) 40 mg capsule 06-16 16:08: 51 06-16 00:00 :00 No Take by mouth daily. [facility] loratadine 10 mg tablet 06-16 16:08: 49 Yes 10mg Take 1 tablet by mouth at bedtime as needed. [facility] loratadine 10 mg tablet 06-16 16:08: 49 Yes 10mg Take 1 tablet by mouth. [facility] oxyBUTYnin chloride 5 mg tablet 06-16 16:07: 33 06-16 00:00 :00 No 5mg Take 1 tablet by mouth in the morning and 1 tablet in the evening. [facility] methocarbam oL 500 mg tablet 06-16 16:06: 46 06-16 00:00 :00 No Take 2 tablets 4 times a day by oral route. [facility] ipratropium 42 mcg (0.06 %) nasal spray 06-16 16:06: 15 06-16 00:00 :00 No INSTILL ONE SPRAY INTO EACH NOSTRIL TWICE A DAY [facility] vitamin B complex (B COMPLEX 1 ORAL) 06-16 16:05: 22 Yes 1{tbl} Take 1 tablet by mouth in the morning. [facility] Cholecalcif murray, Vitamin D3, 125 mcg (5,000 unit) tablet 06-16 16:04: 36 06-16 00:00 :00 No 5000U Take 1 tablet by mouth. [facility] azithromyci n 250 mg tablet 06-16 16:04: 30 06-16 00:00 :00 No TAKE 2 TABLETS BY MOUTH TODAY, THEN TAKE 1 TABLET DAILY FOR 4 DAYS [facility] Azelastine 205.5 mcg (0.15 %) nasal spray 06-16 16:04: 27 Yes as needed. [facility] loratadine 10 mg tablet 06-02 11:03: 48 Yes 10mg Take 1 tablet by mouth. [facility] fexofenadin e HCl (PASTOR ORAL) 06-02 11:03: 48 Yes Take by mouth. [facility] amoxicillin 500 mg capsule 06-02 10:58: 19 Yes amoxicilli n 500 mg capsule TAKE ONE CAPSULE BY MOUTH EVERY 8 HOURS FOR 7 DAYS [facility] enoxaparin 100 mg/mL injection 06-02 10:58: 19 Yes INJECT 1 SYRINGE BY SUBCUTANEO US ROUTE EVERY 12 HOURS [facility] azithromyci n 250 mg tablet 06-02 10:58: 19 Yes TAKE 2 TABLETS BY MOUTH TODAY, THEN TAKE 1 TABLET DAILY FOR 4 DAYS [facility] esomeprazol e (NEXIUM) 40 mg capsule 06-02 10:58: 19 Yes Take by mouth daily. [facility] sildenafiL 100 mg tablet 06-02 10:58: 19 Yes TAKE ONE (1) TABLET(S) BY MOUTH 30 MINUTES BEFORE SEX. [facility] topiramate 25 mg tablet 06-02 10:58: 19 Yes Take 1 tablet every day by oral route. [facility] pantoprazol e 40 mg EC tablet 2022-03 14:51: 47 Yes 40mg Take 1 tablet by mouth in the morning. [facility] amoxicillin 500 mg capsule 2022-03 14:51: 47 Yes amoxicilli n 500 mg capsule TAKE ONE CAPSULE BY MOUTH EVERY 8 HOURS FOR 7 DAYS [facility] Azelastine 205.5 mcg (0.15 %) nasal spray 2022-03 14:51: 47 Yes azelastine 205.5 mcg (0.15 %) nasal spray INHALE 1 SPRAY INTO EACH NOSTRIL TWICE DAILY [facility] azithromyci n 250 mg tablet 2022-03 14:51: 47 Yes TAKE 2 TABLETS BY MOUTH TODAY, THEN TAKE 1 TABLET DAILY FOR 4 DAYS [facility] Cholecalcif murray, Vitamin D3, 125 mcg (5,000 unit) tablet 2022-03 14:51: 47 Yes 5000U Take 1 tablet by mouth. [facility] enoxaparin 100 mg/mL injection 2022-03 14:51: 47 Yes INJECT 1 SYRINGE BY SUBCUTANEO US ROUTE EVERY 12 HOURS [facility] esomeprazol e (NEXIUM) 40 mg capsule 2022-03 14:51: 47 Yes Take by mouth daily. [facility] ipratropium 42 mcg (0.06 %) nasal spray 2022-03 14:51: 47 Yes INSTILL ONE SPRAY INTO EACH NOSTRIL TWICE A DAY [facility] Lacosamide (VIMPAT) 100 mg tablet 2022-03 14:51: 47 Yes [facility] methocarbam oL 500 mg tablet 2022-03 14:51: 47 Yes Take 2 tablets 4 times a day by oral route. [facility] oxyBUTYnin chloride 5 mg tablet 2022-03 14:51: 47 Yes 5mg Take 1 tablet by mouth in the morning and 1 tablet in the evening. [facility] sildenafiL 100 mg tablet 2022-03 14:51: 47 Yes TAKE ONE (1) TABLET(S) BY MOUTH 30 MINUTES BEFORE SEX. [facility] topiramate 25 mg tablet 2022-03 14:51: 47 Yes Take 1 tablet every day by oral route. [facility] pantoprazol e 40 mg EC tablet 2022-03 14:51: 47 06-29 00:00 :00 No 40mg Take 1 tablet by mouth in the morning. [facility] warfarin 2 mg tablet 2022-03 14:51: 41 03-04 00:00 :00 No 2mg Take 1 tablet by mouth. [facility] warfarin 1 mg tablet 2022-03 14:47: 45 Yes warfarin 1 mg tablet 2 mg on M,W,F and 1 mg on T,T, S and S [facility] loratadine 10 mg tablet 2022-03 14:47: 45 Yes 10mg Take 1 tablet by mouth. [facility] fluticasone propionate 50 mcg/actuati on nasal spray 2022-03 00:00: 00 Yes INSTILL 1 SPRAY BY INTRANASAL ROUTE EVERY DAY [facility] celecoxib 200 mg capsule 2022-03 00:00: 00 06-16 00:00 :00 No 200mg Take 1 capsule by mouth in the morning and 1 capsule in the evening. [facility] hydroxychlo roquine 200 mg tablet 2022-03 00:00: 00 06-16 00:00 :00 No 200mg Take 1 tablet by mouth in the morning and 1 tablet in the evening. [facility] predniSONE 20 mg tablet 2022-03 00:00: 00 [facility] ([facility]cinol one) Kenalog (Triamcinol one) 09-23 00:00: 00 No 1mL [facility]upivicaine [place] Bupivicaine [place] 09-23 00:00: 00 No 5mL [facility] Bupivic[facility] [place] Bupiv[facility]aine [place] 04-15 00:00: 00 No 2.5mg [facility] Kenalog (Triamcinol one) Kenalog (Triamcinol one) 04-15 00:00: 00 No 40mg [facility] [place] B[facility]iv[facility] [place] 04-15 00:00: 00 No 2.5mg [facility] Kenalog (Triamcinol one) Kenalog (Triamcinol one) 04-15 00:00: 00 No 40mg [facility] Bupivicaine [place] Bupivicaine [place] 04-15 00:00: 00 No 2.5mg [facility] Kenalog (Triamcinol one) Kenalog (Triamcinol one) 04-15 00:00: 00 No 40mg [facility] lacosamide 200 mg Tab 2021-03 15:51: 56 Yes 200mg Q.5D Take 200 mg by mouth 2 (two) times daily . [facility] cyanocobala min (VITAMIN B-12) 1000 MCG tablet 2021-03 15:51: 56 Yes 1200ug QD Take 1,200 mcg by mouth daily. [facility] thiamine (VITAMIN B-1) 100 MG tablet 2021-03 15:51: 56 Yes 100mg QD Take 100 mg by mouth daily. [facility] valsartan (DIOVAN) 80 MG tablet 2021-03 15:51: 56 Yes 80mg QD Take 80 mg by mouth daily . [facility] ascorbic acid, vitamin C, (ASCORBIC ACID WITH OSIEL HIPS) 500 MG tablet 2021-03 15:51: 56 Yes 500mg QD Take 500 mg by mouth daily. [facility] atorvastati n (LIPITOR) 40 MG tablet 2021-03 15:51: 56 Yes 40mg QD Take 40 mg by mouth daily. [facility] dexlansopra zole 60 mg capsule 2021-03 15:51: 56 Yes 60mg QD Take 60 mg by mouth nightly . [facility] loratadine (CLARITIN) 10 mg tablet 2021-03 15:51: 56 Yes 10mg QD Take 10 mg by mouth daily. [facility] cholecalcif murray, vitamin D3, (Vitamin D3) 125 mcg (5,000 unit) Tab 2021-03 15:51: 56 Yes 5000U QD Take 5,000 Units by mouth daily. [facility] Lactobac no.41/Bifid obact no.7 (PROBIOTIC- 10 ORAL) 2021-03 15:51: 56 Yes QD Take by mouth daily. [facility] gabapentin (NEURONTIN) 600 MG tablet 2021-03 15:51: 56 Yes 300mg Q.5D Take 300 mg by mouth 2 (two) times daily. [facility] lamoTRIgine (LaMICtal) 100 MG tablet 2021-03 15:51: 56 Yes 150mg QD Take 150 mg by mouth daily In AM. [facility] warfarin (COUMADIN, JANTOVEN) 2 MG tablet 2021-03 15:51: 56 Yes 1mg QD Take 1 mg by mouth daily . [facility] lamoTRIgine (LaMICtal) 200 MG tablet 2021-03 15:51: 56 Yes 200mg QD Take 200 mg by mouth daily At Night . [facility] levothyroxi ne (SYNTHROID, LEVOTHROID) 100 MCG tablet 2021-03 15:51: 56 Yes 100ug Take 100 mcg by mouth Every morning on an empty stomach. [facility] lacosamide (Vimpat) 50 mg Tab tablet 2021-03 15:51: 56 Yes 50mg Q.5D Take 50 mg by mouth 2 (two) times daily. [facility] Kenalog (Triamcinol one) Kenalog (Triamcinol one) 12-09 00:00: 00 No 40mg [facility] Naropin (Ropivacain e HCl) Naropin (Ropivacain e HCl) 12-09 00:00: 00 No 5mg [facility] Kenalog (Triamcinol one) Kenalog (Triamcinol one) 12-09 00:00: 00 No 40mg [facility] Naropin (Ropivacain e HCl) Naropin (Ropivacain e HCl) 12-09 00:00: 00 No 5mg [facility] Kenalog (Triamcinol one) Kenalog (Triamcinol one) 12-09 00:00: 00 No 40mg [facility] Naropin (Ropivacain e HCl) Naropin (Ropivacain e HCl) 12-09 00:00: 00 No 5mg [facility] Kenalog (Triamcinol one) Kenalog (Triamcinol one) 12-09 00:00: 00 No 40mg [facility] Naropin (Ropivacain e HCl) Naropin (Ropivacain e HCl) 12-09 00:00: 00 No 5mg [facility] sildenafiL (VIAGRA) 50 mg tablet 05-07 10:01: 30 05-07 00:00 :00 No Viagra 50 mg tablet Take 1 tablet every day by oral route. [facility] tadalafiL (CIALIS) 5 mg tablet 05-07 00:00: 00 03-04 00:00 :00 No [id number] 5mg Take 1 tablet by mouth as needed for Erectile dysfunctio n (2-3 tablets 2 hrs prior to sexual activity). [facility] Kenalog (Triamcinol one) Kenalog (Triamcinol one) 04-15 00:00: 00 No 40mg [facility] Bupivicaine [place] Bupivicaine [place] 04-15 00:00: 00 No 2.5mg [facility] Bupivicaine [place] Bupivicaine [place] 04-15 00:00: 00 No 2.5mg [facility] Kenalog (Triamcinol one) Kenalog (Triamcinol one) 04-15 00:00: 00 No 40mg [facility] Bupivicaine [place] Bupivicaine [place] 04-15 00:00: 00 No 2.5mg [facility] Kenalog (Triamcinol one) Kenalog (Triamcinol one) 04-15 00:00: 00 No 40mg [facility] Bupivicaine [place] Bupivicaine [place] 04-15 00:00: 00 No 2.5mg [facility] Kenalog (Triamcinol one) Kenalog (Triamcinol one) - 00:00: 00 No 40mg Common [facility] Bupivicaine [place] Bupivicaine [place] 09-11 00:00: 00 No 2.5mg [facility] Kenalog (Triamcinol one) Kenalog (Triamcinol one) 09-11 00:00: 00 No 40mg Common [facility] Bupivicaine [place] Bupivicaine [place] 09-11 00:00: 00 No 2.5mg [facility] Kenalog (Triamcinol one) Kenalog (Triamcinol one) 09-11 00:00: 00 No 40mg [facility] Bupivicaine [place] Bupivicaine [place] 15 00:00: 00 No 2.5mg [facility] Kenalog (Triamcinol one) Kenalog (Triamcinol one) 09-11 00:00: 00 No 40mg Common [facility] Kenalog (Triamcinol one) Kenalog (Triamcinol one) 09-11 00:00: 00 No [facility]mg [facility] Bupivicaine [place] Bupivicaine [place] 15 00:00: 00 No 2.5mg [facility] warfarin 1 mg tablet 06-18 14:56: 57 Yes warfarin 1 mg tablet 2 mg on M,W,F and 1 mg on T,T, S and S [facility] loratadine 10 mg tablet 06-18 14:56: 57 Yes 10mg Take 10 mg by mouth. [facility] warfarin 2 mg tablet 06-18 14:56: 56 Yes 2mg Take 2 mg by mouth. [facility] amoxicillin 500 mg capsule 06-18 14:56: 55 Yes amoxicilli n 500 mg capsule TAKE ONE CAPSULE BY MOUTH EVERY 8 HOURS FOR 7 DAYS [facility] tamsulosin 0.4 mg 24 hr capsule 06-17 00:00: 00 Yes .8mg Take 2 capsules by mouth every evening. [facility] finasteride 5 mg tablet 06-05 00:00: 00 Yes TAKE 1 ORAL TABLET EVERY EVENING FOR ENLARGED PROSTATE [facility] lamoTRIgine 200 mg tablet 06-05 00:00: 00 03-04 00:00 :00 No TAKE 1 TABLET BY MOUTH EVERY DAY AT NIGHT [facility] atorvastati n 40 mg tablet 05-28 00:00: 00 Yes 40mg Take 1 tablet by mouth in the morning. [facility] gabapentin 600 mg tablet 05-25 00:00: 00 Yes 300mg Take 0.5 tablets by mouth every morning. [facility] gabapentin 600 mg tablet 05-25 00:00: 00 Yes 600mg Take 1 tablet by mouth in the morning and 1 tablet in the evening. [facility] levothyroxi ne 100 mcg tablet 04-20 00:00: 00 Yes 100ug Take 1 tablet by mouth every morning. [facility] levothyroxi ne 50 mcg tablet 04-20 00:00: 00 Yes 100ug Take 2 tablets by mouth every morning. [facility] Bupivicaine [place] Bupivicaine [place] 04-03 00:00: 00 No 2.5mg [facility] Kenalog (Triamcinol one) Kenalog (Triamcinol one) 04-03 00:00: 00 No 40mg [facility] Bupivicaine [place] Bupivicaine [place] 04-03 00:00: 00 No 2.5mg [facility] Kenalog (Triamcinol one) Kenalog (Triamcinol one) 04-03 00:00: 00 No 40mg [facility] Bupivicaine [place] Bupivicaine [place] 04-03 00:00: 00 No 2.5mg [facility] Kenalog (Triamcinol one) Kenalog (Triamcinol one) 04-03 00:00: 00 No 40mg [facility] Kenalog (Triamcinol one) Kenalog (Triamcinol one) 04-03 00:00: 00 No 40mg [facility] Bupivicaine [place] Bupivicaine [place] 04-03 00:00: 00 No 2.5mg [facility] valsartan 80 mg tablet 2019-03 00:00: 00 Yes 80mg Take 1 tablet by mouth in the morning. [facility] lamoTRIgine 100 mg tablet 2019-03 00:00: 00 03-04 00:00 :00 No TAKE 1/2 TABLET BY MOUTH EVERY DAY [facility] sucralfate (CARAFATE) 100 mg/mL suspension 2019-03 00:00: 00 Yes 1g Q.25D Take 10 mLs (1 g total) by mouth 4 (four) times daily Take this medicine 2 hours apart from your other medication s.. [facility] Bupivicaine [place] Bupivicaine [place] 08-01 00:00: 00 No 5mL [facility] Kenalog (Triamcinol one) Kenalog (Triamcinol one) 08-01 00:00: 00 No 40mg [facility] Bupivicaine [place] Bupivicaine [place] 08-01 00:00: 00 No 5mL [facility] Kenalog (Triamcinol one) Kenalog (Triamcinol one) 08-01 00:00: 00 No 40mg [facility] Bupivicaine [place] Bupivicaine [place] 08-01 00:00: 00 No 5mL [facility] Kenalog (Triamcinol one) Kenalog (Triamcinol one) 08-01 00:00: 00 No 40mg [facility] Bupivicaine [place] Bupivicaine [place] 08-01 00:00: 00 No 5mL [facility] Kenalog (Triamcinol one) Kenalog (Triamcinol one) 08-01 00:00: 00 No 40mg [facility] Gabapentin Gabapentin Yes David Darby TAKE 1 TABLET BY MOUTH TWICE A DAY [facility] Loratadine Loratadine Yes David Darby TAKE 1 TABLET BY MOUTH EVERY DAY [facility] Atorvastati n Calcium Atorvastati n Calcium Yes David Darby TAKE 1 TABLET BY MOUTH EVERY DAY [facility] Lamotrigine Lamotrigine Yes Jayce kristen Darby TAKE 1 TABLET BY MOUTH EVERY DAY AT NIGHT [facility] Valsartan Valsartan Yes David Darby TAKE 1 TABLET BY MOUTH EVERY DAY [facility] Furosemide Furosemide Yes David Darby TAKE 1 TABLET BY MOUTH EVERY DAY [facility] Levothyroxi ne Sodium Levothyroxi ne Sodium Yes David Darby TAKE 1 TABLET BY MOUTH EVERY DAY [facility] Pantoprazol e Sodium Pantoprazol e Sodium Yes David Darby TAKE 1 TABLET BY MOUTH EVERY DAY IN THE MORNING [facility] Tramadol HCl Tramadol HCl Yes David Darby (Schedule IV Drug) TAKE 1 TABLET BY MOUTH THREE TIMES A DAY NEEDED [facility] Warfarin Sodium Warfarin Sodium Yes David Darby TAKE 1 TABLET BY ORAL ROUTE EVERY DAY ON Thu [facility] Diclofenac Sodium Diclofenac Sodium Yes David Darby APPLY 4 GRAMS TO AFFECTED AREA TWICE A DAY [facility] Hydrocodone -Acetaminop hen Hydrocodone -Acetaminop hen Yes David Darby (Schedule II Drug) TAKE 1 TABLET BY MOUTH TWICE A DAY [facility] diazePAM diazePAM No diazePAM HYDROcodone -Acetaminop hen 10-325 MG HYDROcodone -Acetaminop hen 10-325 MG No HYDROcodon e-Acetamin ophen 10-325 MG traMADol HCl 50 MG traMADol HCl 50 MG No traMADol HCl 50 MG Loratadine 10 MG Loratadine 10 MG No Loratadine 10 MG Furosemide 20 MG Furosemide 20 MG No Furosemide 20 MG Gabapentin 300 MG Gabapentin 300 MG No Gabapentin 300 MG Levothyroxi ne Sodium 75 MCG Levothyroxi ne Sodium 75 MCG No Levothyrox ine Sodium 75 MCG Diclofenac Sodium 1 % Diclofenac Sodium 1 % No Diclofenac Sodium 1 % Methocarbam ol Methocarbam ol No Methocarba mol traMADol HCl 50 MG traMADol HCl 50 MG No traMADol HCl 50 MG Gabapentin 300 MG Gabapentin 300 MG No Gabapentin 300 MG HYDROcodone -Acetaminop hen 10-325 MG HYDROcodone -Acetaminop hen 10-325 MG No HYDROcodon e-Acetamin ophen 10-325 MG Levothyroxi ne Sodium 75 MCG Levothyroxi ne Sodium 75 MCG No Levothyrox ine Sodium 75 MCG Furosemide 20 MG Furosemide 20 MG No Furosemide 20 MG Diclofenac Sodium 1 % Diclofenac Sodium 1 % No Diclofenac Sodium 1 % Methocarbam ol Methocarbam ol No Methocarba mol traMADol HCl 50 MG traMADol HCl 50 MG No traMADol HCl 50 MG Pantoprazol e Sodium 40 MG Pantoprazol e Sodium 40 MG No Pantoprazo le Sodium 40 MG Loratadine 10 MG Loratadine 10 MG No Loratadine 10 MG Gabapentin 300 MG Gabapentin 300 MG No Gabapentin 300 MG HYDROcodone -Acetaminop hen 10-325 MG HYDROcodone -Acetaminop hen 10-325 MG No HYDROcodon e-Acetamin ophen 10-325 MG Levothyroxi ne Sodium 75 MCG Levothyroxi ne Sodium 75 MCG No Levothyrox ine Sodium 75 MCG Furosemide 20 MG Furosemide 20 MG No Furosemide 20 MG Diclofenac Sodium 1 % Diclofenac Sodium 1 % No Diclofenac Sodium 1 % HYDROcodone -Acetaminop hen 10-325 MG HYDROcodone -Acetaminop hen 10-325 MG No HYDROcodon e-Acetamin ophen 10-325 MG Amoxicillin Amoxicillin No Am oxicilli n Diclofenac Sodium 1 % Diclofenac Sodium 1 % No Diclofenac Sodium 1 % Furosemide 20 MG Furosemide 20 MG No Furosemide 20 MG Loratadine 10 MG Loratadine 10 MG No Loratadine 10 MG Gabapentin 300 MG Gabapentin 300 MG No Gabapentin 300 MG Levothyroxi ne Sodium 75 MCG Levothyroxi ne Sodium 75 MCG No Levothyrox ine Sodium 75 MCG Pantoprazol e Sodium 40 MG Pantoprazol e Sodium 40 MG No Pantoprazo le Sodium 40 MG traMADol HCl 50 MG traMADol HCl 50 MG No traMADol HCl 50 MG Vital Signs Vital Name Observation Time Observation Value Comments S ource HEIGHT 2020-03-06 11:00:00 182.9 cm WEIGHT 2020-03-06 [...] HEIGHT 2020-03-08 23:00:00 182.9 cm Systolic blood pressure 2024-07-06 15:23:00 152 mm[Hg] [facility] Diastolic blood pressure 2024-07-06 15:23:00 73 mm[Hg] [facility] Heart rate 2024-07-06 15:23:00 62 /min [facility] Respiratory rate 2024-07-06 15:23:00 24 /min [facility] Oxygen saturation in Arterial blood by Pulse oximetry 2024-07-06 15:23:00 99 /min [facility] Body temperature 2024-07-06 14:56:00 36.22 Josi [facility] Body height 2024-07-06 13:16:00 182.9 cm [facility] Body weight 2024-07-06 13:16:00 83.462 kg [facility] BMI 2024-07-06 13:16:00 24.95 kg/m2 [facility] Systolic blood pressure 2023-11-24 14:11:00 114 mm[Hg] [facility] kumar Epic Diastolic blood pressure 2023-11-24 14:11:00 65 mm[Hg] [facility] Epic Heart rate 2023-11-24 14:11:00 68 /min [facility] Body height 2023-11-24 14:11:00 182.9 cm [facility] Body weight 2023-11-24 14:11:00 82.555 kg [facility] [place] [facility] BMI 2023-11-24 14:11:00 24.68 kg/m2 [facility] Systolic blood pressure 2023-11-24 14:11:00 114 mm[Hg] [facility] Her [facility] Diastolic blood pressure 2023-11-24 14:11:00 65 mm[Hg] [facility] Epic Heart rate 2023-11-24 14:11:00 68 /min [facility] Body height 2023-11-24 14:11:00 182.9 cm [facility] [place] Epic Body weight 2023-11-24 14:11:00 82.555 kg [facility] [place] [facility] BMI 2023-11-24 14:11:00 24.68 kg/m2 [facility] Systolic blood pressure 2023-06-17 21:12:00 132 mm[Hg] [facility] Diastolic blood pressure 2023-06-17 21:12:00 78 mm[Hg] [facility] Heart rate 2023-06-17 21:12:00 74 /min [facility] Oxygen saturation in Arterial blood by Pulse oximetry 2023-06-17 21:12:00 96 /min [facility] Body temperature 2023-06-17 21:03:00 36.17 Josi [facility] Respiratory rate 2023-06-17 21:03:00 20 /min [facility] Body height 2023-06-17 21:03:00 182.9 cm [facility] Body weight 2023-06-17 21:03:00 86.183 kg [facility] BMI 2023-06-17 21:03:00 25.77 kg/m2 [facility] Systolic blood pressure 2023-06-03 16:52:00 114 mm[Hg] [facility] Diastolic blood pressure 2023-06-03 16:52:00 63 mm[Hg] [facility] Heart rate 2023-06-03 16:52:00 77 /min [facility] 2023-06-03 16:52:00 18 /min [facility] Body weight 2023-06-03 16:52:00 84.823 kg [facility] BMI 2023-06-03 16:52:00 25.36 kg/m2 [facility] Oxygen saturation in Arterial blood by Pulse oximetry 2023-06-03 16:52:00 99 /min [facility] Systolic blood pressure 2023-03-04 20:47:00 136 mm[Hg] [facility] Diastolic blood pressure 2023-03-04 20:47:00 76 mm[Hg] [facility] Heart rate 2023-03-04 20:47:00 68 /min [facility] Respiratory rate 2023-03-04 20:47:00 18 /min [facility] Body height 2023-03-04 20:47:00 182.9 cm [facility] Body weight 2023-03-04 20:47:00 84.823 kg [facility] BMI 2023-03-04 20:47:00 25.36 kg/m2 [facility] Oxygen saturation in Arterial blood by Pulse oximetry 2023-03-04 20:47:00 96 /min [facility] height 2022-09-23 14:30:00 72 [in_i] Commo n [facility] weight 2022-09-23 14:30:00 202 [lb_av] Comm on [facility] temperature 2022-09-23 14:30:00 98.1 [degF] Com mon [facility] bmi 2022-09-23 14:30:00 27.39 kg/m2 Comm on [facility] blood pressure systolic 2022-09-23 14:30:00 124 mm[Hg] Common [facility] blood pressure diastolic 2022-09-23 14:30:00 80 mm[Hg] Common [facility] height 2022-04-15 10:15:00 72 [in_i] Commo n [facility] weight 2022-04-15 10:15:00 202.0 [lb_av] Co mmon [facility] temperature 2022-04-15 10:15:00 97.9 [degF] Com mon [facility] bmi 2022-04-15 10:15:00 27.39 kg/m2 Comm on [facility] blood pressure systolic 2022-04-15 10:15:00 124 mm[Hg] Common [facility] blood pressure diastolic 2022-04-15 10:15:00 81 mm[Hg] Common [facility] HEIGHT 2021-12-24 15:39:00 182.9 cm WEIGHT 2021-12-24 15:39:00 90.719 kg HEIGHT 2021-12-24 15:39:00 182.9 cm WEIGHT 2021-12-24 15:39:00 90.719 kg Body weight 2022-01-02 18:25:00 85.276 kg [facility] BMI 2022-01-02 18:25:00 25.50 kg/m2 [facility] Systolic blood pressure 2021-12-26 19:33:00 135 mm[Hg] [facility] Diastolic blood pressure 2021-12-26 19:33:00 81 mm[Hg] [facility] Heart rate 2021-12-26 19:33:00 72 /min [facility] Body temperature 2021-12-26 19:33:00 36.44 Josi [facility] Respiratory rate 2021-12-26 19:33:00 18 /min [facility] Body height 2021-12-26 19:33:00 182.9 cm [facility] Body weight 2021-12-26 19:33:00 85.639 kg [facility] BMI 2021-12-26 19:33:00 25.61 kg/m2 [facility] Oxygen saturation in Arterial blood by Pulse oximetry 2021-12-26 19:33:00 96 /min [facility] height 2021-12-09 10:15:00 72 [in_i] Commo n [facility] weight 2021-12-09 10:15:00 201.1 [lb_av] Co mmon [facility] temperature 2021-12-09 10:15:00 98.2 [degF] Com mon [facility] bmi 2021-12-09 10:15:00 27.27 kg/m2 Comm on [facility] blood pressure systolic 2021-12-09 10:15:00 122 mm[Hg] Common [facility] blood pressure diastolic 2021-12-09 10:15:00 72 mm[Hg] Common [facility] height 2021-04-15 10:00:00 72 [in_i] Commo n [facility] weight 2021-04-15 10:00:00 204 [lb_av] Comm on [facility] temperature 2021-04-15 10:00:00 97.1 [degF] Com [facility] bmi 2021-04-15 10:00:00 27.66 kg/m2 Comm on [facility] blood pressure systolic 2021-04-15 10:00:00 106 mm[Hg] [facility] blood pressure diastolic 2021-04-15 10:00:00 64 mm[Hg] Common [facility] WEIGHT 2020-03-09 07:00:00 87.998 kg [...] 182.9 cm WEIGHT 2020-01-18 15:52:00 83.915 kg Procedures Procedure Date / Time Performed Performing Clinician Source PROTHROMBIN TIME / INR 2024-07-06 13:26:00 Maisha Fish [facility] Sedimentation Rate 2023-11-24 00:00:00 [facility] C-Reactive Protein 2023-11-24 00:00:00 [facility] Complete Blood Count w/Diff and Platelet 2023-11-24 00:00:00 [facility] Comprehensive Metabolic Panel 2023-11-24 00:00:00 [facility] Uric Acid 2023-11-24 00:00:00 [facility] Ferritin 2023-11-24 00:00:00 [facility] Vitamin D 25-Hydroxy 2023-11-24 00:00:00 [facility] XR hand 3+ views bilateral 2023-11-24 00:00:00 [facility] POCT URINALYSIS AUTO 2023-06-17 21:08:00 Harriet Malone [facility] CARISSA,POST-VOID RES,US,NON-IMAGING 2023-06-03 17:02:00 Ned Malone [facility] MEDICAL RELEASE/CLEARANCE FORMS 2023-06-03 06:01:00 Doctor Unassigned, [facility] CONSENT/REFUSAL FOR DIAGNOSIS AND TREATMENT 2023-03-04 20:25:52 Doctor Unassigned, [facility] CARISSA,POST-VOID RES,US,NON-IMAGING 2023-03-04 00:00:00 Fatimah Hoff [facility] POCT URINALYSIS AUTO 2023-03-04 00:00:00 Mara [facility] REPORT OF PROCEDURE - ENDOSCOPY URL 2022-03-20 16:24:19 Sandi, [facility] REPORT OF PROCEDURE - ENDOSCOPY URL 2022-03-20 16:23:08 Sandi, [facility] EGD (ESOPHAGOGASTRODUODENOSC OPY) 2022-01-15 13:41:00 Sandi, [facility] EGD, WITH BALLOON DILATION 2022-01-03 13:41:00 Sandi, [facility] ENDOSCOPY, UPPER GI TRACT, WITH BIOPSY 2022-01-03 13:41:00 Sandi, [facility] TISSUE EXAM 2022-01-03 08:00:00 Sandi, [facility] POCT URINALYSIS AUTO 2021-12-26 19:42:00 Harriet Malone [facility] CONSENT/REFUSAL FOR DIAGNOSIS AND TREATMENT 2021-12-26 18:36:27 Doctor Unassigned, [facility] Plan of Care Planned Activity Planned Date Details Comments Source Future Scheduled Test 2022-12-24 00:00:00 Tobacco Cessation Counseling and Screening (12+) [code = Tobacco Cessation Counseling and Screening (12+)] [facility] Future Scheduled Test 2022-11-28 00:00:00 Influenza Vaccine (#1) [code = Influenza Vaccine (#1)] [facility] Future Scheduled Test 2022-11-28 00:00:00 Influenza Vaccine (#1) [code = Influenza Vaccine (#1)] [facility] Future Scheduled Test 2022-03-30 00:00:00 DEPRESSION SCREENING (12+) [code = DEPRESSION SCREENING (12+)] [facility] Future Scheduled Test 2022-03-30 00:00:00 FALLS RISK SCREENING [code = FALLS RISK SCREENING] [facility] Future Scheduled Test 2022-03-30 00:00:00 DEPRESSION SCREENING (12+) [code = DEPRESSION SCREENING (12+)] [facility] Future Scheduled Test 2022-03-30 00:00:00 FALLS RISK SCREENING [code = FALLS RISK SCREENING] [facility] Future Scheduled Test 2018-03-31 00:00:00 MEDICARE ANNUAL WELLNESS (YEAR 2 or FIRST YEAR if no IPPE) [code = MEDICARE ANNUAL WELLNESS (YEAR 2 or FIRST YEAR if no IPPE)] [facility] Future Scheduled Test 2018-03-31 00:00:00 MEDICARE ANNUAL WELLNESS (YEAR 2 or FIRST YEAR if no IPPE) [code = MEDICARE ANNUAL WELLNESS (YEAR 2 or FIRST YEAR if no IPPE)] [facility] Future Scheduled Test 2002 00:00:00 SHINGLES VACCINES (1 of 2) [code = SHINGLES VACCINES (1 of 2)] [facility] Future Scheduled Test 2002 00:00:00 SHINGLES VACCINES (1 of 2) [code = SHINGLES VACCINES (1 of 2)] [facility] Future Scheduled Test 1971-06-09 00:00:00 DTAP/TDAP/TD VACCINES (1 - Tdap) [code = DTAP/TDAP/TD VACCINES (1 - Tdap)] [facility] Future Scheduled Test 1971-06-09 00:00:00 DTAP/TDAP/TD VACCINES (1 - Tdap) [code = DTAP/TDAP/TD VACCINES (1 - Tdap)] [facility] Future Scheduled Test 1970 00:00:00 HEPATITIS C SCREENING [code = HEPATITIS C SCREENING] [facility] Future Scheduled Test 1970 00:00:00 HEPATITIS C SCREENING [code = HEPATITIS C SCREENING] [facility] Future Scheduled Test 1964 00:00:00 Tobacco Cessation Counseling and Screening (12+) [code = Tobacco Cessation Counseling and Screening (12+)] [facility] Future Scheduled Test 1952 00:00:00 COVID-19 VACCINE (#1) [code = COVID-19 VACCINE (#1)] [facility] Future Scheduled Test 1952 00:00:00 COVID-19 VACCINE (#1) [code = COVID-19 VACCINE (#1)] [facility] Future Scheduled Test 1952 00:00:00 Screening for malignant neoplasm of colon (procedure) [code = 427309307] [facility] Future Scheduled Test 1952 00:00:00 Screening for malignant neoplasm of colon (procedure) [code = 393336894] [facility] Future Scheduled Test 1952 00:00:00 Screening for malignant neoplasm of colon (procedure) [code = 088522448] [facility] Future Scheduled Test 1952 00:00:00 Screening for malignant neoplasm of colon (procedure) [code = 913343493] [facility] Future Scheduled Test 1952 00:00:00 Sigmoidoscopy [code = Sigmoidoscopy] [facility] Future Scheduled Test 1952 00:00:00 CT Colonography (combo) [code = CT Colonography (combo)] [facility] Future Scheduled Test 1952 00:00:00 Screening for malignant neoplasm of colon (procedure) [code = 666586770] [facility] Future Scheduled Test 1952 00:00:00 Screening for malignant neoplasm of colon (procedure) [code = 461338578] [facility] Future Scheduled Test 1952 00:00:00 Screening for malignant neoplasm of colon (procedure) [code = 909293097] [facility] Future Scheduled Test 1952 00:00:00 Screening for malignant neoplasm of colon (procedure) [code = 036292305] [facility] Future Scheduled Test 1952 00:00:00 Sigmoidoscopy [code = Sigmoidoscopy] [facility] Future Scheduled Test 1952 00:00:00 CT Colonography (combo) [code = CT Colonography (combo)] [facility] Encounters Start Date/Time End Date/Time Encounter Type Admission Type Attending [facility] Care Facility Care Department Encounter ID Source 2022-04-15 10:11:01 [facility] [id number] [facility] 2022-01-25 12:27:32 Outpatient SANDI, CHUCKIE [facility] [id number] [facility] 2021-12-10 16:41:01 Outpatient Kelsey, [facility] [id number] [facility] 2021-04-24 13:55:06 Outpatient Kelsey, [facility] [id number] [facility] 2021-04-24 13:09:11 Outpatient Kelsey, [facility] [id number] [facility] 2021-04-24 12:17:35 Outpatient Kelsey, [facility] [id number] [facility] 2021-04-24 11:20:32 Outpatient Kelsey, [facility] [id number] [facility] 2021-01-04 17:51:07 Outpatient SANDI, CHUCKIE [facility] Surgery [id number] [facility] 2021-01-03 09:54:24 Outpatient SANDI, CHUCKIE [facility] Surgery [id number] [facility] 2021-01-02 11:39:59 Outpatient SANDI, CHUCKIE [facility] Surgery [id number] [facility] 2021-01-01 22:09:55 Outpatient SANDI, CHUCKIE SLE Surgery [id number] [facility] 2020-03-08 22:00:00 Inpatient WILI GREEN [facility] Gastro [id number] [facility] 2024-07-06 08:04:00 2024-07-06 10:39:00 Outpatient DAVID STAFFORD [facility] OPH [id number] [facility] 2024-07-06 08:04:00 2024-07-06 10:39:00 Hospital David Montemayor [facility] [id number] [facility] 2024-05-05 13:24:03 2024-05-05 13:24:03 Outpatient SFA SFA [id number] Norberto Roldan 2023-11-24 13:50:00 2023-11-24 14:58:49 Consult Sherin Minor Rheumatol [facility] 1.2.840.114 350.1.13.70 8.2.7.2.686 [id number] [facility] 2023-11-24 13:46:23 2023-11-24 14:58:49 Outpatient Elective SHERIN MINOR MHEOUT MHEOUT [id number] [facility]OUT 2023-11-11 00:00:00 2023-11-18 15:01:20 [facility] 1..840.114 350.1.13.10 4.2.7.2.686 [id number] [facility] 2023-11-18 13:00:00 2023-11-18 13:00:00 Outpatient R FAISAL [facility] [id number] [facility] 2023-10-23 00:00:00 2023-11-18 08:23:39 Telephone Faisal [facility] 1..840.114 350.1.13.10 4.2.7.2.686 [id number] [facility] 2023-11-17 16:30:00 2023-11-17 16:30:00 Outpatient R FAISAL [facility] [id number] [facility] 2023-11-02 00:00:00 2023-11-13 16:36:19 [facility] 1..840.114 350.1.13.10 4.2.7.2.686 [id number] [facility] 2023-11-11 14:00:00 2023-11-11 15:00:59 Outpatient R FAISAL [facility] [id number] [facility] 2023-10-22 00:00:00 2023-10-23 08:41:48 Telephone Faisal [facility] 1.2.840.114 350.1.13.10 4.2.7.2.686 [id number] [facility] 2023-06-23 13:30:00 2023-06-23 13:30:00 Outpatient R FAISAL [facility] [id number] [facility] 2023-06-18 00:00:00 2023-06-18 00:00:00 Telephone Faisal [facility] 1.2.840.114 350.1.13.10 4.2.7.2.686 [id number] [facility] 2023-06-17 16:00:00 2023-06-17 16:38:42 Outpatient R FAISAL [facility] [id number] [facility] 2023-06-17 16:00:00 2023-06-17 16:15:00 Office Visit Faisal [facility] 1.2.840.114 350.1.13.10 4.2.7.2.686 [id number] [facility] 2023-06-16 14:33:11 2023-06-16 23:59:00 Outpatient R FAISAL [facility] [id number] [facility] 2023-06-16 14:33:11 2023-06-16 23:59:00 Hospital Encounter Faisal [facility] 1.2.840.114 350.1.13.10 4.2.7.2.686 [id number] [facility] 2023-06-15 00:00:00 2023-06-15 00:00:00 [facility] [id number] [facility] 2023-06-10 00:00:00 2023-06-10 00:00:00 Telephone Faisal [facility] BUILDING 1.2.840.114 350.1.13.10 4.2.7.2.686 [id number] [facility] 2023 00:00:00 2023 00:00:00 Outpatient R FAISAL [facility] [id number] [facility] 2023-06-05 00:00:00 2023-06-05 00:00:00 Telephone Faisal [facility] 1.2.840.114 350.1.13.10 4.2.7.2.686 [id number] [facility] 2023-06-03 11:30:00 2023-06-03 13:00:29 [facility] [id number] [facility] 2023-06-03 11:30:00 2023-06-03 12:00:00 Office Visit Faisal [facility] 1.2.840.114 350.1.13.10 4.2.7.2.686 [id number] [facility] 2023-06-03 00:00:00 2023-06-03 00:00:00 Orders Only Doctor Unassigned, [facility] 1.2840.114 350.1.13.10 4.2.7.2.686 [id number] [id number] [facility] 2023-06-03 00:00:00 2023-06-03 00:00:00 Telephone Faisal [facility] BUILDING 1.2840.114 350.1.13.10 4.2.7.2.686 [id number] [facility] 2023-05-13 13:00:00 2023-05-13 13:00:00 Outpatient R NED MALONE [facility] [id number] [facility] 2023-05-12 10:30:00 2023-05-12 10:30:00 [facility] [id number] [facility] 2023-03-04 14:15:00 2023-03-04 15:45:15 [facility] [id number] [facility] 2023-03-04 14:15:00 2023-03-04 15:45:15 Office Visit Fatimah Hoff [facility] 1..840.114 350.1.13.10 4.2.7.2.686 [id number] [facility] 2023-03-04 00:00:00 2023-03-04 00:00:00 Orders Only Doctor Unassigned, [facility] 1..840.114 350.1.13.10 4.2.7.2.686 [id number] [facility] 2022-09-23 00:00:00 2022-09-23 00:00:00 OFFICE VISIT ESTAB PT LEVEL 4 STLMLC STLMLC [id number] [facility] 2022-04-15 00:00:00 2022-04-15 00:00:00 OFFICE VISIT ESTAB PT LEVEL 4 STLMLC STLMLC [id number] [facility] 2022-04-07 09:15:00 2022-04-07 09:15:00 Outpatient FATIMAH THOMAS [facility] [id number] [facility] 2022-01-15 12:00:00 2022-01-15 18:00:00 Outpatient UR SANDI, CHUCKIE [facility] [id number] [facility] 2022-01-15 12:00:00 2022-01-15 18:00:00 Hospital Encounter Chuckie [facility] [id number] [facility] 2022-01-15 12:00:00 2022-01-15 12:30:00 Surgery Chuckie Aguilar [facility] [id number] [facility] 2022-01-03 09:30:00 2022-01-03 15:28:00 Outpatient EL CHUCKIE AGUILAR [facility] Surgery [id number] [facility] 2022-01-03 09:30:00 2022-01-03 15:28:00 Hospital Encounter Chuckie Lozano [facility] [id number] [facility] 2022-01-03 11:30:00 2022-01-03 12:00:00 Surgery Chuckie Aguilar [facility] [id number] [facility] 2022-01-02 14:00:00 2022-01-02 14:31:15 Nurse Visit Faisal [place] [id number] 350.1.13.10 4.2.7.2.686 [id number] [facility] 2022-01-02 14:00:00 2022-01-02 14:00:00 [facility] [id number] [facility] 2021-12-31 00:00:00 2021-12-31 00:00:00 Telephone Torinjunaid [facility] 12.840.114 350.1.13.10 4.2.7.2.686 [id number] [facility] 2021-12-26 14:00:00 2021-12-26 16:26:25 Outpatient R FAISAL [facility] [id number] [facility] 2021-12-26 14:00:00 2021-12-26 16:26:25 Office Visit Ned Malone [facility] 1.2.840.114 350.1.13.10 4.2.7.2.686 [id number] [facility] 2021-12-26 00:00:00 2021-12-26 00:00:00 Orders Only Doctor Unassigned, [facility] 1.2.840.114 350.1.13.10 4.2.7.2.686 [id number] [id number] [facility] 2021-12-26 00:00:00 2021-12-26 00:00:00 Telephone Ned Malone [facility] 1.2.840.114 350.1.13.10 4.2.7.2.686 [id number] [facility] 2021-12-25 00:00:00 2021-12-25 00:00:00 [facility] 1.2.840.114 350.1.13.10 4.2.7.2.686 [id number] [facility] 2021-12-24 15:43:05 2021-12-24 23:59:00 Outpatient EL [facility] [id number] [facility] 2021-12-09 10:45:00 2021-12-09 10:45:00 Out[facility] [id number] [facility] 2021-12-09 00:00:00 2021-12-09 00:00:00 [facility]IT [id number] 2021-11-18 00:00:00 2021-11-18 00:00:00 [facility] [id number] [facility] 2021-10-07 00:00:00 2021-10-07 00:00:00 Telephone Ned Malone [facility] 1.2.840.114 350.1.13.10 4.2.7.2.686 [id number] [facility] 2021-05-07 00:00:00 2021-05-07 00:00:00 [facility] 1.2.840.114 350.1.13.10 4.2.7.2.686 [id number] [facility] 2021-05-07 00:00:00 2021-05-07 00:00:00 [facility] 1.2.840.114 350.1.13.10 4.2.7.2.686 [id number] 204 [id number] [facility] 2021-04-17 00:00:00 2021-04-17 00:00:00 (TEL) STLC STLMLC [id number] [facility] 2021-04-15 00:00:00 2021-04-15 00:00:00 OFFICE VISIT ESTAB PT LEVEL 4 STLMLC STLMLC [id number] [facility] 2021-04-03 00:00:00 2021-04-03 00:00:00 Telephone Faisal [facility] 1.2.840.114 350.1.13.10 4.2.7.2.686 [id number] [facility] 2021-03-11 00:00:00 2021-03-11 00:00:00 (TEL) STLC STLMLC [id number] [facility] 2020-12-31 00:00:00 2020-12-31 00:00:00 [facility] 1.2.840.114 350.1.13.10 4.2.7.2.686 [id number] [facility] 2020-11-30 00:00:00 2020-11-30 00:00:00 Telephone [facility]ali Winn [facility] 1.2.840.114 350.1.13.10 4.2.7.2.686 [id number] [facility] 2020-09-11 00:00:00 2020-09-11 00:00:00 Outpatient STLMLC STLMLC [id number] [facility] 2020-09-03 00:00:00 2020-09-03 00:00:00 Outpatient STLMLC STLMLC [id number] [facility] 2020-09-03 00:00:00 2020-09-03 00:00:00 Outpatient STLMLC STLMLC [id number] [facility] 2020-08-02 00:00:00 2020-08-02 00:00:00 Telephone Ned Malone [facility] Building 1.2.840.114 350.1.13.10 4.2.7.2.686 [id number] 204 [id number] [facility] 2020-08-02 00:00:00 2020-08-02 00:00:00 Telephone Ned Malone [facility] Building 1.2.840.114 350.1.13.10 4.2.7.2.686 [id number] [facility] 2020-07-16 13:30:00 2020-07-16 15:14:59 Outpatient R NED MALONE [facility] [id number] [facility] 2020-07-16 13:23:48 2020-07-16 15:14:59 Office Visit Ned Malone Rm, Adc Surg Spec Procedure [facility] Building 1.2.840.114 350.1.13.10 4.2.7.2.686 [id number] [facility] 2020-07-09 15:31:59 2020-07-09 15:46:59 Pathology Secretary/Transcriptionist Visit Pob, Adc Lab Main [facility] Building 1.2.840.114 350.1.13.10 4.2.7.2.686 [id number] [facility] 2020-07-09 09:15:00 2020-07-09 09:15:00 Outpatient R FAISAL [facility] [id number] [facility] 2020-07-09 00:00:00 2020-07-09 00:00:00 Orders Only Doctor Unassigned, [facility] 1.2.840.114 350.1.13.10 4.2.7.2.686 [id number] [id number] [facility] 2020-07-06 00:00:00 2020-07-06 00:00:00 Telephone Faisal [facility] Building 1.2.840.114 350.1.13.10 4.2.7.2.686 [id number] [facility] 2020-06-20 00:00:00 2020-06-20 00:00:00 Telephone Faisal [facility] Building 1.2.840.114 350.1.13.10 4.2.7.2.686 [id number] [facility] 2020-06-19 00:00:00 2020-06-19 00:00:00 Telephone Faisal [facility] Building 1.2.840.114 350.1.13.10 4.2.7.2.686 [id number] 204 [id number] [facility] 2020-06-18 15:54:11 2020-06-18 16:09:11 Pathology Secretary/Transcriptionist Visit 2, [facility] 1.2.840.114 350.1.13.10 4.2.7.2.686 [id number] [facility] 2020-06-18 14:32:49 2020-06-18 15:50:41 [facility] 1.2.840.114 350.1.13.10 4.2.7.2.686 [id number] [facility] 2020-06-18 15:00:00 2020-06-18 15:00:00 Outpatient R NED MALONE [facility] [id number] [facility] 2020-04-03 00:00:00 2020-04-03 00:00:00 Outpatient STLMLC STLMLC [id number] [facility] 2020-03-05 00:00:00 2020-03-05 00:00:00 Outpatient EL [facility] [id number] [facility] 2020-02-13 00:00:00 2020-02-13 00:00:00 Outpatient EL SLEH [facility] [id number] [facility] 2020-01-18 00:00:00 2020-01-18 00:00:00 Outpatient EL [facility]H [facility] [id number] [facility] 2019-08-02 09:00:00 2019-08-02 09:00:00 Outpatient [facility] [id number] [facility] Results Test Description Test Time Test Comments Results Result Co mments [facility], [id number] 21:08:00 * Test Item Value Reference Range Interpretation Comme nts POCT U SP GRAV (test code = 3255) 1.020 mg/dl 1.005-1.025 POCT PH U (test code = 3254) 7 mg/dl 5-8 POCT U LEUK EST (test code = 3263) negative Negative - Negative POCT U NIT (test code = 3262) negative Negative - Negati ve POCT U PROT (test code = 3259) negative Negative - Negative POCT U GLU (test code = 3256) negative Negative - Negati ve POCT U KETONE (test code = 3258) negative Negative - Negative POCT U UROBILI (test code = 3260) 2.0 E.U. 0.2-1 POCT U BILI (test code = 3261) negative Negative - Negative POCT U BLD (test code = 3257) negative Negative - Negati ve POCT U COLOR (test code = 3266) yellow POCT U APPEAR (test code = 3267) clear [facility] [id number] 17:02:00* Test Item Value Reference Range Interpretation Comme nts PVR (URINE VOLUME) (test code = 5193) 0 ml 0-100 Lab Interpretation (test cod e = 44669-3) Normal [facility] [id number] 17:02:00* Test Item Value Reference Range Interpretation Comme nts PVR (URINE VOLUME) (test code = 5193) 0 ml 0-100 Lab Interpretation (test cod e = 86475-0) Normal [facility], [id number] 20:54:00 * Test Item Value Reference Range Interpretation Comme nts POCT U SP GRAV (test code = 3255) 1.020 mg/dl 1.005-1.025 POCT PH U (test code = 3254) 7 mg/dl 5-8 POCT U LEUK EST (test code = 3263) neg Negative - Negative POCT U NIT (test code = 3262) neg Negative - Negati ve POCT U PROT (test code = 3259) neg Negative - Negative POCT U GLU (test code = 3256) neg Negative - Negati ve POCT U KETONE (test code = 3258) neg Negative - Negative POCT U UROBILI (test code = 3260) 1.0 mg/dl 0.2-1 POCT U BILI (test code = 3261) neg Negative - Negative POCT U BLD (test code = 3257) neg Negative - Negati ve POCT U COLOR (test code = 3266) yellow POCT U APPEAR (test code = 3267) clear [facility], [id number] 20:54:00 * Test Item Value Reference Range Interpretation Comme nts POCT U SP GRAV (test code = 3255) 1.020 mg/dl 1.005-1.025 POCT PH U (test code = 3254) 7 mg/dl 5-8 POCT U LEUK EST (test code = 3263) neg Negative - Negative POCT U NIT (test code = 3262) neg Negative - Negati ve POCT U PROT (test code = 3259) neg Negative - Negative POCT U GLU (test code = 3256) neg Negative - Negati ve POCT U KETONE (test code = 3258) neg Negative - Negative POCT U UROBILI (test code = 3260) 1.0 mg/dl 0.2-1 POCT U BILI (test code = 3261) neg Negative - Negative POCT U BLD (test code = 3257) neg Negative - Negati ve POCT U COLOR (test code = 3266) yellow POCT U APPEAR (test code = 3267) clear [facility],POST-VOID RES,US,[id number] 00:00:00* Test Item Value Reference Range Interpretation Comme nts PVR (URINE VOLUME) (test code = 5193) 81 ml 0-100 Lab Interpretation (test cod e = 34008-3) Normal [facility],POST-VOID RES,US,[id number] 00:00:00* Test Item Value Reference Range Interpretation Comme nts PVR (URINE VOLUME) (test code = 5193) 81 ml 0-100 Lab Interpretation (test cod e = 89815-6) Normal [facility] Hospital[facility] [id number] 13:18:16* Test Item Value Reference Range Interpretation Comme nts Case Report (test code = 104) Surgical Pathology Report Case: [id number] Authorizing Provider: Chuckie Aguilar Collected: 01/03/2022 08:00 AM Ordering Location: [facility] Endoscopy Received: 03/03/2022 02:39 PM Services Pathologist: Ayaka Aviles MD Specimens: A) - Stomach B) - Biopsy, Gastroesophageal Junction DIAGNOSIS (test code = 3220) f3cgmSDnRYHnh5awHBKpgNOfZp EwMzNcZnRuYmpcdWMxIHtccnRm MVxlcGljOTYwMlxhbnNpXHNwbH HdI6DbmcubBGknDW4xDL4uqNky jWMalDPbHCHoPcXte1ufy373cO Kdn1brXXZDajcnpHa4pBltP12p e8J4TcuoJ47lyLHnUGP4KWYqBP JgiMVvRUBxMGA6HSAawTFnJ2xp UVVkFG8gsfxmFIxoQArsBDMxjG Q8VUQtbMIaT2VeLKIcVYwzKXWv pbd1XzJiOg3bpYGinBayDAnoNO JkXHBsYWluXGZzMjAgVEhJUyBS OHGOKjDkC9TIHPKHSmZSBMhTAJ AOHIPCVttdIY5DJhJBPUAwAVOQ G8MQTSPHFf2APUFQROYKXGdmYe VzN69PUOXCPRIIIRWVJ56JDQdW WHJAST5XAAZMQ9WZPPXAVL0GZE yRHIpaN87FKJYVWR3TAGivO94W FiGSSWvQHnCsUL1DR0MPO6ZJTZ gFLSMSPG3WRbKNYU7BWrONSRZR CLHLVN6yPINUFd2GIPTGXtKDSV GxG7YZKM5KIKJOUsCSK9DpVIqA XuXYBNZWOdTVS5RLZNzQNWMiSP ciEYUdAZALURKLP8FYMuUPDVRK CIJHOZ8IWmBaBR2gFKdQQpKOPQ KSAZ3WGRSTXmIJLOSAPEXdUKXh SAuZHVDEIfFXFDBYJA2CDW5ydO SniIimnqMbXLsvo0UuHYwzHBNe BK8yyXyeYHUyKL5wTQRdZ0eshA 7pxhb9VrSyGLTzNzG6IGDtxxO5 Mao4DAAeNKzom4uda9NmLTVsQR m4cNwmHcUmVGGlv3ctepGhBcKx HKSkRZZmPHRsbSJfX280r6zjm3 ivblBjgQI1IENqKFP0SYwpfyFp fvW6RDiebWGsOeL1GWsxvwAnNO mgrmXzigBrVup9JYSxI325VWS4 qAyzt8ksKZE9DJRfKPXwZpKmHp 0ytTKyA043UZIqDNGCBWEdsMw8 BWPdgkGpigSxcRZIo086X311b3 mjZNDfadHwkObKesedv0duF028 XHBhcGVydzEyMjQwXHBhcGVyaD M2WTUfOC6yqipfORwnMHvdFHXy mxF0YXDdbXZtD5GrQMCtFE1scg noYKB2WNoqKDTeOTM5DuWfJAEy l8Fodxw8SkAnyt9rjv96XCT5x9 EflJfcXCN3XFT1DaBtQj1mwHAf MCUhPD4aKkUusPSmZSOeuh28wP hdNUvtRQP8WJQainAzt2Lsw7lz MjPoplGsW4qlP8SwJCEqVXQdOO WcOoPpiaYvw8Fch9ZeeHOonRy8 j7ozIDZfSQEdlAdgz4qvOVQ1NG RzgUZzN4tnpB3nSAHzCC6xvglo v3okPChxBTvsULTvwZS5mcZ4WH PwjKLqD5ZqaN3tRFLoSXgwNFDn zqj7TdOlNb5ujCLbrTuoOYfoNg twYWdlXHBnbmNvbnRccGduZGVj XHBsYWluXHBsYWluXGYwXGZzMj RccWxcbGFuZzEwMzNcaGljaFxm AFnzVtViXKZhBSjhG6sxBxNsKw PbJub8MHGzvDIaMHNoJgg5NRUs tLXcHCPNiRszaA9fJFMtnOawfR 2taLO9HVNrjfIqlTFRzY1vNWAH xG7eErS5MpFeVmS7OOC8RLdiyU FyfX0= [facility] [id number] 13:18:16Surgical Pathology Report Case: [id number] Authorizing Provider: Chuckie Aguilar Collected: 01/03/2022 08:00 AM Ordering Location: [facility] Endoscopy Received: 03/03/2022 02:39 PM Services Pathologist: Ayaka Aviles MD Specimens: A) - Stomach B) - Biopsy, Gastroesophageal Junction THIS REPORTWAS FINALIZED DURING DOWNTIME PROCEDURES.THERE MAY BE SOME VARIATIONS IN REPORT FORMATTING WITH SOME MANUAL CORRECTIONS. MICROSCOPIC EXAMINATIONS HAVE BEEN PERFORMED. THE CAP NUMBER FOR THIS LABORATORY IS [id number]. THE SCANNED ATTACHMENT TO THIS CASE NUMBER SERVES THE FINAL REPORT. Signing Pathologist Direct Phone Line: [phone] signed by Ayaka Aviles MD on 04/01/2022 at 1:18 PMPOCT URINALYSIS, [id number] 19:43:00* Test Item Value Reference Range Interpretation Comme nts POCT U SP GRAV (test code = 3255) 1.025 mg/dl 1.005-1.025 POCT PH U (test code = 3254) 6.0 mg/dl 5-8 POCT U LEUK EST (test code = 3263) Negative Negative - Negative POCT U NIT (test code = 3262) Negative Negative - Negati ve POCT U PROT (test code = 3259) Trace Negative - Negative POCT U GLU (test code = 3256) Neagtive Negative - Negati ve POCT U KETONE (test code = 3258) Negative Negative - Negative POCT U UROBILI (test code = 3260) 0.2 mg/dl 0.2-1 POCT U BILI (test code = 3261) Negative Negative - Negative POCT U BLD (test code = 3257) Negative Negative - Negati ve POCT U COLOR (test code = 3266) Yellow POCT U APPEAR (test code = 3267) Clear [facility] URINALYSIS, [id number] 19:43:00 * Test Item Value Reference Range Interpretation Comme nts POCT U SP GRAV (test code = 3255) 1.025 mg/dl 1.005-1.025 POCT PH U (test code = 3254) 6.0 mg/dl 5-8 POCT U LEUK EST (test code = 3263) Negative Negative - Negative POCT U NIT (test code = 3262) Negative Negative - Negati ve POCT U PROT (test code = 3259) Trace Negative - Negative POCT U GLU (test code = 3256) Neagtive Negative - Negati ve POCT U KETONE (test code = 3258) Negative Negative - Negative POCT U UROBILI (test code = 3260) 0.2 mg/dl 0.2-1 POCT U BILI (test code = 3261) Negative Negative - Negative POCT U BLD (test code = 3257) Negative Negative - Negati ve POCT U COLOR (test code = 3266) Yellow POCT U APPEAR (test code = 3267) Clear [facility]/[id number] 05:46:00* Test Item Value Reference Range Interpretation Comme [...] is 2.5-3.5 for patients wiht mechanical heart valves.CBC W/PLT COUNT & AUTO DIFFERENTIAL 2020-03-10 05:27:00* Test Item Value Reference Range Interpretation Comme nts WHITE BLOOD CELL COUNT (BEAK ER) (test code = 775) 5.8 K/ L 3.5-10.5 RED BLOOD CELL COUNT (BEAKER ) (test code = 761) 3.71 M/ L 4.63-6.08 L HEMOGLOBIN (BEAKER) (test co de = 410) 12.0 GM/DL 13.7-17.5 L HEMATOCRIT (BEAKER) (test co de = 411) 37.2 % 40.1-51.0 L MEAN CORPUSCULAR VOLUME (PANCHO KER) (test code = 753) 100.3 fL 79.0-92.2 H MEAN CORPUSCULAR HEMOGLOBIN (BEAKER) (test code = 751) 32.3 pg 25.7-32.2 H MEAN CORPUSCULAR HEMOGLOBIN CONC (BEAKER) (test code = 752) 32.3 GM/DL 32.3-36.5 RED CELL DISTRIBUTION WIDTH (BEAKER) (test code = 412) 13.3 % 11.6-14.4 PLATELET COUNT (BEAKER) (david t code = 756) 197 K/CU MM 150-450 MEAN PLATELET VOLUME (BEAKER ) (test code = 754) 9.2 fL 9.4-12.4 L NUCLEATED RED BLOOD CELLS (BEAKER) (test code = 413) 0 /100 WBC 0-0 NEUTROPHILS RELATIVE PERCENT (BEAKER) (test code = 429) 49 % LYMPHOCYTES RELATIVE PERCENT (BEAKER) (test code = 430) 36 % MONOCYTES RELATIVE PERCENT (BEAKER) (test code = 431) 9 % EOSINOPHILS RELATIVE PERCENT (BEAKER) (test code = 432) 6 % BASOPHILS RELATIVE PERCENT (BEAKER) (test code = 437) 0 % NEUTROPHILS ABSOLUTE COUNT (BEAKER) (test code = 670) 2.85 K/ L 1.78-5.38 LYMPHOCYTES ABSOLUTE COUNT (BEAKER) (test code = 414) 2.08 K/ L 1.32-3.57 MONOCYTES ABSOLUTE COUNT (BE LILI) (test code = 415) 0.53 K/ L 0.30-0.82 EOSINOPHILS ABSOLUTE COUNT (BEAKER) (test code = 416) 0.33 K/ L 0.04-0.54 BASOPHILS ABSOLUTE COUNT (BE LILI) (test code = 417) 0.02 K/ L 0.01-0.08 IMMATURE GRANULOCYTES-RELATI VE PERCENT (BEAKER) (test code = 2801) 0 % 0-1 HEMOGLOBIN AND [id number] 16:14:00* Test Item Value Reference Range Interpretation Comme nts HEMOGLOBIN (BEAKER) (test co de = 410) 13.1 GM/DL 13.7-17.5 L HEMATOCRIT (BEAKER) (test co de = 411) 40.9 % 40.1-51.0 Sanitary Aide ID - [id number]-PCR ([facility])2020-03-09 11:34:00* Test Item Value Reference Range Interpretation Comme nts SARS-COV2/RT-PCR (test code = 5136569) Negative Not Detected, Negative, See external report for linked test SARS-COV-2 PERFORMING LAB (test code = 9892706) [facility] Negative result for this test determines that SARS-CoV-2 RNA was not present in the specimen above the Limit of Detection (LOD). However, Negative results do not preclude SARS-CoV-2 infection and should not be used as the sole basis for treatment or patient management decisions. Negative results must be combined with clinical observations, patient history, and epidemiological information. A falsenegative result may occur if a specimen is improperly collected, transported or handled. A false negative result should be considered if patient's recent exposures or clinical presentation indicate that COVID-19 (SARS-CoV-2) is likely and diagnostic tests for other causes of illness are negative. Re-testing should be considered in cases of suspected false negatives.The limit of detection for thisassay is 800 copies/mL.This SARS CoV-2 test is a real-time RT-PCR test intended for the qualitativedetection of nucleic acid from SARS-CoV-2 in a nasopharyngeal swab specimen collected from individua ls suspected of COVID-19 by their healthcare provider.This test [...] 564(g) of the Act.Fact Sheet for Healthcare Providers:https://www.[employer]/sites/default/files/product/documents/Fact_Shee z_ZW_Tsqdxnjcd_Omwx_TEFR-KjD-4.pdfFact Sheet for Healthcare Patients:https://www.[employer]/sites/default/fi les/product/documents/Ikgs_Qwdil_Uegisbso_Whyf_ZJXE-WrE-9.pdfPerforming Laboratory:[facility] [place] [address] BASIC METABOLIC [id number] 06:11:00* Test Item Value Reference Range Interpretation Comme nts SODIUM (BEAKER) (test code = 381) 142 meq/L 136-145 POTASSIUM (BEAKER) (test code = 379) 4.0 meq/L 3.5-5.1 CHLORIDE (BEAKER) (test code = 382) 110 meq/L 98-107 H CO2 (BEAKER) (test code = 355) 24 meq/L 22-29 BLOOD UREA NITROGEN (BEAKER) (test code = 354) 20 mg/dL 7-21 CREATININE (BEAKER) (test code = 358) 0.95 mg/dL 0.57-1.25 GLUCOSE RANDOM (BEAKER) (test code = 652) 90 mg/dL 70-105 CALCIUM (BEAKER) (test code = 697) 9.0 mg/dL 8.4-10.2 EGFR (BEAKER) (test code = 1092) ESTIMATED GFR IS NOT ACCURATE CREATININE CLEARANCE IN PREDICTING GLOMERULAR FILTRATION RATE. ESTIMATED GFR IS NOT APPLICABLE FOR DIALYSIS PATIENTS. Sanitary Aide ID - EDASIHEPATIC FUNCTION [id number] 06:10:00* Test Item Value Reference Range Interpretation Comme nts TOTAL PROTEIN (BEAKER) (test code = 770) 6.5 gm/dL 6.0-8.3 ALBUMIN (BEAKER) (test code = 1145) 3.8 g/dL 3.5-5.0 BILIRUBIN TOTAL (BEAKER) (te st code = 377) 1.3 mg/dL 0.2-1.2 H BILIRUBIN DIRECT (BEAKER) (t est code = 706) 0.5 mg/dL 0.1-0.5 ALKALINE PHOSPHATASE (BEAKER ) (test code = 346) 67 U/L 40-150 AST (SGOT) (BEAKER) (test co de = 353) 39 U/L 5-34 H ALT (SGPT) (BEAKER) (test co de = 347) 32 U/L 6-55 Sanitary Aide ID - EDASIPROTHROMBIN TIME/[id number] 05:21:00* Test Item Value Reference Range Interpretation Comme nts PROTIME (BEAKER) (test code = 759) 19.4 seconds 11.9-14.2 H INR (BEAKER) (test code = 370) 1.69 <=5.90 Effective 08/25/2018: PT Reference Range ChangeNew: 11.9-14.2 Previous: 11.7- 14.7RECOMMENDED COUMADIN/WARFARIN INR THERAPY RANGESSTANDARD DOSE: 2.0-3.0 Includes: PROPHYLAXIS for venous thrombosis, systemic embolization; TREATMENT for venous thrombosis and/or pulmonary embolus.HIGH RISK: Target INR is 2.5-3.5 for patients wiht mechanical heart valves.CBC W/PLT COUNT & AUTO DIFFERENTIAL 2020-03-09 05:18:00* Test Item Value Reference Range Interpretation Comme nts WHITE BLOOD CELL COUNT (BEAK ER) (test code = 775) 7.1 K/ L 3.5-10.5 RED BLOOD CELL COUNT (BEAKER ) (test code = 761) 3.68 M/ L 4.63-6.08 L HEMOGLOBIN (BEAKER) (test co de = 410) 11.9 GM/DL 13.7-17.5 L HEMATOCRIT (BEAKER) (test co de = 411) 36.8 % 40.1-51.0 L MEAN CORPUSCULAR VOLUME (PANCHO KER) (test code = 753) 100.0 fL 79.0-92.2 H MEAN CORPUSCULAR HEMOGLOBIN (BEAKER) (test code = 751) 32.3 pg 25.7-32.2 H MEAN CORPUSCULAR HEMOGLOBIN CONC (BEAKER) (test code = 752) 32.3 GM/DL 32.3-36.5 RED CELL DISTRIBUTION WIDTH (BEAKER) (test code = 412) 13.2 % 11.6-14.4 PLATELET COUNT (BEAKER) (david t code = 756) 201 K/CU MM 150-450 MEAN PLATELET VOLUME (BEAKER ) (test code = 754) 9.7 fL 9.4-12.4 NUCLEATED RED BLOOD CELLS (BEAKER) (test code = 413) 0 /100 WBC 0-0 NEUTROPHILS RELATIVE PERCENT (BEAKER) (test code = 429) 45 % LYMPHOCYTES RELATIVE PERCENT (BEAKER) (test code = 430) 40 % MONOCYTES RELATIVE PERCENT (BEAKER) (test code = 431) 11 % EOSINOPHILS RELATIVE PERCENT (BEAKER) (test code = 432) 3 % BASOPHILS RELATIVE PERCENT (BEAKER) (test code = 437) 0 % NEUTROPHILS ABSOLUTE COUNT (BEAKER) (test code = 670) 3.20 K/ L 1.78-5.38 LYMPHOCYTES ABSOLUTE COUNT (BEAKER) (test code = 414) 2.87 K/ L 1.32-3.57 MONOCYTES ABSOLUTE COUNT (BE LILI) (test code = 415) 0.76 K/ L 0.30-0.82 EOSINOPHILS ABSOLUTE COUNT (BEAKER) (test code = 416) 0.22 K/ L 0.04-0.54 BASOPHILS ABSOLUTE COUNT (BE LILI) (test code = 417) 0.03 K/ L 0.01-0.08 IMMATURE GRANULOCYTES-RELATI VE PERCENT (BEAKER) (test code = 2801) 0 % 0-1 HEMOGLOBIN AND [id number] 05:18:00* Test Item Value Reference Range Interpretation Comme nts HEMOGLOBIN (BEAKER) (test co de = 410) 11.9 GM/DL 13.7-17.5 L HEMATOCRIT (BEAKER) (test co de = 411) 36.8 % 40.1-51.0 L TISSUE [id number] 17:09:00Surgical Pathology Report Case: [id number] Authorizing Provider: Chuckie Aguilar Collected: 03/06/2020 11:53 AM Ordering Location: [facility] Endoscopy Received: 03/06/2020 02:38 PM Services Pathologist: Orquidea Gonzales MD Specimen: Biopsy, Gastric, random STOMACH, ENDOSCOPIC MUCOSAL BIOPSIES- ANTRAL AND OXYNTIC MUCOSA WITH MILD CHRONIC INACTIVE GASTRITIS - OXYNTIC MUCOSA WITH PARIETAL CELL HYPERTROPHY, see COMMENT- ANTRAL MUCOSA WITH INTESTINAL METAPLASIA- NEGATIVE FOR HELICOBACTER PYLORI- NEGATIVE FOR DYSPLASIA OR CARCINOMA Signing Pathologist Direct Phone Line: [phone] signed by Orquidea Gonzales MD on 03/08/2020 at 5:08 [id number], [id number], esophageal stenosisA-random gastric biopsySpecimen A is received in formalin labelled with the patient's name, medical record number and "random gastric biopsy" and consists of 5 lainez-brown mucosal covered and irregula r tissue fragments measuring 0.5 x 0.4 x 0.8 cm in aggregate. The specimen is filtered and submitted entirely in A1.Giovanna Hartmann, MDMicroscopic examination is performed and the findings are incorporated in the diagnostic line. [...] evaluated Immunohistochemistry technical testing was performed at [facility], Pathology Laboratory where it was [...] qualified to perform high complexity clinical laboratory testing.PT/[id number] 11:41:00* Test Item Value Reference Range Interpretation Comme nts PROTIME (BEAKER) (test code = 759) 21.1 seconds 11.9-14.2 H INR (BEAKER) (test code = 370) 1.88 <=5.90 PARTIAL THROMBOPLASTIN TIME (BEAKER) (test code = 760) 46.1 seconds 22.5-36.0 H Effective 08/25/2018: PT Reference Range ChangeNew: 11.9-14.2 Previous: 11.7- 14.7RECOMMENDED COUMADIN/WARFARIN INR THERAPY RANGESSTANDARD DOSE: 2.0-3.0 Includes: PROPHYLAXIS for venous thrombosis, systemic embolization; TREATMENT for venous thrombosis and/or pulmonary embolus.HIGH RISK: Target INR is 2.5-3.5 for patients wiht mechanical heart valves.TISSUE [id number] 14:30:00Surgical Pathology Report Case: [id number] Authorizing Provider: Chuckie Aguilar Collected: 02/14/2020 01:11 PM Ordering Location: [facility] Endoscopy Received: 02/14/2020 02:29 PM Services Pathologist: Ayaka Avlies MD Specimen: Biopsy, Esophagus, at 43 A. ESOPHAGUS, AT 43, BIOPSY: - COLUMNARMUCOSA WITH ACUTE AND CHRONIC INFLAMMATION, GRANULATION TISSUE AND REACTIVE CHANGES. - SQUAMOUS EPIT HELIUM WITH NO SIGNIFICANT DIAGNOSTIC ALTERATION. - NEGATIVE FOR SIGNIFICANT INTRA-EPITHELIAL EOSINOPHILS. - NEGATIVE FOR SPECIALIZED METAPLASTIC EPITHELIUM. - NEGATIVE FOR DYSPLASIA OR MALIGNANCY. Signing Pathologist Direct Phone Line: [phone] signed by Ayaka Aviles MD on 02/16/2020 at 2:30 [id number], [id number], [id number] biopsy Received in formalin labeled with the patient's name, accession number and "esophagus biopsy at 43" are four lainez-pink tissue fragmentsmeasuring up to 0.2 cm in greatest dimension, which are filtered and submitted in toto in A1. PA/ewPerformed.The interpretation of this case included the use of immunohistochemistry or special stains.HSV1, HSV2: negativeGMS: negativeControl Slides Examined: In-house known positive controls were evaluated along with the test tissue. These control slides run alongside of the patients sample show appropriate staining. Internal positive and negative controls when available are evaluated Immunohistochemistry technical testing was performed at [facility], Pathology Laboratorywhere it was developed and its performance characteristics were determined. It has not been clearedor approved by the U.S. Food and Drug Administration. The FDA has determined that such clearance orapproval is not necessary. The test is used for clinical purposes. It should not be regarded as investigational or for research. This laboratory is certified under the Clinical Laboratory ImprovementAmendments of 1988 (CLIA-88) as qualified to perform high complexity clinical laboratory testing.[facility], Department of Pathology, [address] [place] [address], [facility], [facility] of [facility], [address] [place] [address], [facility], Department of [facility], [address] [place] [address], SVDQIKJACCH TIME/[id number] 11:45:00* Test Item Value Reference Range Interpretation Comme nts PROTIME (BEAKER) (test code = 759) 23.2 seconds 11.9-14.2 H INR (BEAKER) (test code = 370) 2.12 <=5.90 Effective 08/25/2018: PT Reference Range ChangeNew: 11.9-14.2 Previous: 11.7- 14.7RECOMMENDED COUMADIN/WARFARIN INR THERAPY RANGESSTANDARD DOSE: 2.0-3.0 Includes: PROPHYLAXIS for venous thrombosis, systemic embolization; TREATMENT for venous thrombosis and/or pulmonary embolus.HIGH RISK: Target INR is 2.5-3.5 for patients wiht mechanical heart valves.PT/[id number] 13:03:00* Test Item Value Reference Range Interpretation Comme nts PROTIME (BEAKER) (test code = 759) 26.0 seconds 11.9-14.2 H INR (BEAKER) (test code = 370) 2.45 <=5.90 PARTIAL THROMBOPLASTIN TIME (BEAKER) (test code = 760) 50.8 seconds 22.5-36.0 H Effective 08/25/2018: PT Reference Range ChangeNew: 11.9-14.2 Previous: 11.7- 14.7RECOMMENDED COUMADIN/WARFARIN INR THERAPY RANGESSTANDARD DOSE: 2.0-3.0 Includes: PROPHYLAXIS for venous thrombosis, systemic embolization; TREATMENT for venous thrombosis and/or pulmonary embolus.HIGH RISK: Target INR is 2.5-3.5 for patients wiht mechanical heart valves.ANAEROBIC [id number] 03:13:00* Test Item Value Reference Range Interpretation Comme nts CULTURE (BEAKER) (test code = 1095) No anaerobes isolated BLOOD [id number] 01:01:00* Test Item Value Reference Range Interpretation Comme nts CULTURE (BEAKER) (test code = 1095) No growth in 5 days BLOOD [id number] 19:01:00* Test Item Value Reference Range Interpretation Comme nts CULTURE (BEAKER) (test code = 1095) No growth in 5 days SURGICALLY OBTAINED CULTURE + GRAM [id number] 10:24:00* Test Item Value Reference Range Interpretation Comme nts CULTURE (BEAKER) (test code = 1095) KLEBSIELLA SPECIES A 2+ Klebsiella species Amikacin (test code = 1) S Ampicillin + Sulbactam (test code = 6) S Aztreonam (test code = 32) S Cefepime (test code = 51) S Cefoxitin (test code = 68) S Ceftazidime (test code = 27) S Ceftriaxone (test code = 52) S Ertapenem (test code = 38) S Gentamicin (test code = 18) S Levofloxacin (test code = 22) S Meropenem (test code = 34) S Nitrofurantoin (test code = 23) S Piperacillin + Tazobactam (test code = 29) S Tetracycline (test code = 2) S Tobramycin (test code = 25) S Trimethoprim + Sulfamethoxazole (test code = 47) S CULTURE (BEAKER) (test code = 1095) KLEBSIELLA SPECIES A 2+ Klebsiella species Amikacin (test code = 1) S Ampicillin + Sulbactam (test code = 6) S Aztreonam (test code = 32) S Cefepime (test code = 51) S Cefoxitin (test code = 68) S Ceftazidime (test code = 27) S Ceftriaxone (test code = 52) S Ertapenem (test code = 38) S Gentamicin (test code = 18) S Levofloxacin (test code = 22) S Meropenem (test code = 34) S Nitrofurantoin (test code = 23) S Piperacillin + Tazobactam (test code = 29) S Tetracycline (test code = 2) S Tobramycin (test code = 25) S Trimethoprim + Sulfamethoxazole (test code = 47) S GRAM STAIN RESULT (BEAKER) (test code = 1123) <1+ WBCs GRAM STAIN RESULT (BEAKER) (test code = 963423) No organisms seen BASIC METABOLIC [id number] 05:29:00* Test Item Value Reference Range Interpretation Comme nts SODIUM (BEAKER) (test code = 381) 141 meq/L 136-145 POTASSIUM (BEAKER) (test code = 379) 4.0 meq/L 3.5-5.1 Specimen sligh tly hemolyzed CHLORIDE (BEAKER) (test code = 382) 110 meq/L 98-107 H CO2 (BEAKER) (test code = 355) 24 meq/L 22-29 BLOOD UREA NITROGEN (BEAKER) (test code = 354) 8 mg/dL 7-21 CREATININE (BEAKER) (test code = 358) 0.74 mg/dL 0.57-1.25 Specimen sligh tly hemolyzed GLUCOSE RANDOM (BEAKER) (test code = 652) 70 mg/dL 70-105 CALCIUM (BEAKER) (test code = 697) 9.3 mg/dL 8.4-10.2 EGFR (BEAKER) (test code = 1092) 106 mL/min/1.73 sq m ESTIMATED GFR IS NOT ACCURATE CREATININE CLEARANCE IN PREDICTING GLOMERULAR FILTRATION RATE. ESTIMATED GFR IS NOT APPLICABLE FOR DIALYSIS PATIENTS. PROTHROMBIN TIME/[id number] 05:20:00* Test Item Value Reference Range Interpretation Comme nts PROTIME (BEAKER) (test code = 759) 24.9 seconds 11.7-14.7 H INR (BEAKER) (test code = 370) 2.3 <=5.9 RECOMMENDED COUMADIN/WARFARIN INR THERAPY RANGESSTANDARD DOSE: 2.0 - 3.0 Includes: PROPHYLAXIS for venous thrombosis, systemic embolization; TREATMENT for venous thrombosis and/or pulmonary embolus.HIGH RISK: Target INR is 2.5-3.5 for patients with mechanical heart valves.CBC (HEMOGRAM ONLY)2018-04-30 05:14:00 * Test Item Value Reference Range Interpretation Comme nts WHITE BLOOD CELL COUNT (BEAK ER) (test code = 775) 7.6 K/ L 3.5-10.5 RED BLOOD CELL COUNT (BEAKER ) (test code = 761) 3.23 M/ L 4.63-6.08 L HEMOGLOBIN (BEAKER) (test co de = 410) 9.7 GM/DL 13.7-17.5 L HEMATOCRIT (BEAKER) (test co de = 411) 31.2 % 40.1-51.0 L MEAN CORPUSCULAR VOLUME (PANCHO KER) (test code = 753) 96.6 fL 79.0-92.2 H MEAN CORPUSCULAR HEMOGLOBIN (BEAKER) (test code = 751) 30.0 pg 25.7-32.2 MEAN CORPUSCULAR HEMOGLOBIN CONC (BEAKER) (test code = 752) 31.1 GM/DL 32.3-36.5 L RED CELL DISTRIBUTION WIDTH (BEAKER) (test code = 412) 15.5 % 11.6-14.4 H PLATELET COUNT (BEAKER) (david t code = 756) 373 K/CU MM 150-450 MEAN PLATELET VOLUME (BEAKER ) (test code = 754) 9.4 fL 9.4-12.4 NUCLEATED RED BLOOD CELLS (BEAKER) (test code = 413) 0 /100 WBC 0-0 FL, [id number] 15:36:00Reason for exam:->abnormal imagingFINAL REPORT Intraoperative fluoroscopy [...] MDReport Verified Date/Time: 04/29/2018 15:36:30 Reading Location: [address] Consult Reading Room COMPREHENSIVE METABOLIC [id number] 06:11:00* Test Item Value Reference Range Interpretation Comme nts TOTAL PROTEIN (BEAKER) (test code = 770) 6.5 gm/dL 6.0-8.3 ALBUMIN (BEAKER) (test code = 1145) 3.0 g/dL 3.5-5.0 L ALKALINE PHOSPHATASE (BEAKER) (test code = 346) 89 U/L 40-150 BILIRUBIN TOTAL (BEAKER) (test code = 377) 0.5 mg/dL 0.2-1.2 SODIUM (BEAKER) (test code = 381) 138 meq/L 136-145 POTASSIUM (BEAKER) (test code = 379) 3.8 meq/L 3.5-5.1 CHLORIDE (BEAKER) (test code = 382) 110 meq/L 98-107 H CO2 (BEAKER) (test code = 355) 23 meq/L 22-29 BLOOD UREA NITROGEN (BEAKER) (test code = 354) 8 mg/dL 7-21 CREATININE (BEAKER) (test code = 358) 0.66 mg/dL 0.57-1.25 GLUCOSE RANDOM (BEAKER) (test code = 652) 116 mg/dL 70-105 H CALCIUM (BEAKER) (test code = 697) 9.3 mg/dL 8.4-10.2 AST (SGOT) (BEAKER) (test code = 353) 13 U/L 5-34 ALT (SGPT) (BEAKER) (test code = 347) 7 U/L 6-55 EGFR (BEAKER) (test code = 1092) 121 mL/min/1.73 sq m ESTIMATED GFR IS NOT ACCURATE CREATININE CLEARANCE IN PREDICTING GLOMERULAR FILTRATION RATE. ESTIMATED GFR IS NOT APPLICABLE FOR DIALYSIS PATIENTS. PROTHROMBIN TIME/[id number] 05:50:00* Test Item Value Reference Range Interpretation Comme nts PROTIME (BEAKER) (test code = 759) 21.8 seconds 11.7-14.7 H INR (BEAKER) (test code = 370) 1.9 <=5.9 RECOMMENDED COUMADIN/WARFARIN INR THERAPY RANGESSTANDARD DOSE: 2.0 - 3.0 Includes: PROPHYLAXIS for venous thrombosis, systemic embolization; TREATMENT for venous thrombosis and/or pulmonary embolus.HIGH RISK: Target INR is 2.5-3.5 for patients with mechanical heart valves.CBC W/PLT COUNT & AUTO DIFFERENTIAL 2018-04-28 05:46:00* Test Item Value Reference Range Interpretation Comme nts WHITE BLOOD CELL COUNT (BEAK ER) (test code = 775) 5.7 K/ L 3.5-10.5 RED BLOOD CELL COUNT (BEAKER ) (test code = 761) 3.14 M/ L 4.63-6.08 L HEMOGLOBIN (BEAKER) (test co de = 410) 9.6 GM/DL 13.7-17.5 L HEMATOCRIT (BEAKER) (test co de = 411) 30.0 % 40.1-51.0 L MEAN CORPUSCULAR VOLUME (PANCHO KER) (test code = 753) 95.5 fL 79.0-92.2 H MEAN CORPUSCULAR HEMOGLOBIN (BEAKER) (test code = 751) 30.6 pg 25.7-32.2 MEAN CORPUSCULAR HEMOGLOBIN CONC (BEAKER) (test code = 752) 32.0 GM/DL 32.3-36.5 L RED CELL DISTRIBUTION WIDTH (BEAKER) (test code = 412) 15.0 % 11.6-14.4 H PLATELET COUNT (BEAKER) (david t code = 756) 344 K/CU MM 150-450 MEAN PLATELET VOLUME (BEAKER ) (test code = 754) 9.5 fL 9.4-12.4 NUCLEATED RED BLOOD CELLS (BEAKER) (test code = 413) 0 /100 WBC 0-0 NEUTROPHILS RELATIVE PERCENT (BEAKER) (test code = 429) 55 % LYMPHOCYTES RELATIVE PERCENT (BEAKER) (test code = 430) 38 % MONOCYTES RELATIVE PERCENT (BEAKER) (test code = 431) 7 % EOSINOPHILS RELATIVE PERCENT (BEAKER) (test code = 432) 0 % BASOPHILS RELATIVE PERCENT (BEAKER) (test code = 437) 0 % NEUTROPHILS ABSOLUTE COUNT (BEAKER) (test code = 670) 3.13 K/ L 1.78-5.38 LYMPHOCYTES ABSOLUTE COUNT (BEAKER) (test code = 414) 2.15 K/ L 1.32-3.57 MONOCYTES ABSOLUTE COUNT (BE LILI) (test code = 415) 0.38 K/ L 0.30-0.82 EOSINOPHILS ABSOLUTE COUNT (BEAKER) (test code = 416) 0.01 K/ L 0.04-0.54 L BASOPHILS ABSOLUTE COUNT (BE LILI) (test code = 417) 0.01 K/ L 0.01-0.08 IMMATURE GRANULOCYTES-RELATI VE PERCENT (BEAKER) (test code = 2801) 0 % 0-1 PROTHROMBIN [id number] 18:49:00* Test Item Value Reference Range Interpretation Comme nts PROTIME (BEAKER) (test code = 759) 20.6 seconds 11.7-14.7 H INR (BEAKER) (test code = 370) 1.8 <=5.9 RECOMMENDED COUMADIN/WARFARIN INR THERAPY RANGESSTANDARD DOSE: 2.0 - 3.0 Includes: PROPHYLAXIS for venous thrombosis, systemic embolization; TREATMENT for venous thrombosis and/or pulmonary embolus.HIGH RISK: Target INR is 2.5-3.5 for patients with mechanical heart valves.CT, [id number] 20:18:00Possible wound infection vs dehiscence, ANANTH drain [...] Although the finding may reflect incomplete distention, an esophagitis should also be considered. Underlying pathologic and cannot be excluded. A large (20 x 3 x 16 cm) fluid collection is again noted within the right anterior abdominal wall including in volvement of the rectus sheath musculature. As before, the associated intraluminal fluid is complexsuggesting a component of hemorrhage. However, the adjacent skin is now interrupted concerning for postoperative change and/or skin breakdown with communication with the fluid. The gas collections within the fluid may be related to the same process. However, an infected fluid collection/hematoma should also be considered. There is infiltration of the adjacent subcutaneous tissues with trace fluidas well as skin thickening. Findings may be reactive or secondary to associated regional infection with a cellulitis. A small volume of fluid is again noted within the abdomen adjacent to the liver and in the region of the gallbladder fossa. Although the sterility of the fluid is indeterminate, no definitive associated organization/rim enhancement/gas to suggest discrete intra-abdominal abscess formation / drainable collection. As before, a surgical drain has [...] which extends from the distal one third of the common bile duct to the junction of the descending and transverse segments of the duodenum. Correlation with patient's liver function studies recommended given the new biliary dilatation detailed above. However, a component of the biliary dilatation may reflect increased capacitance of the biliary system following cholecystectomy. The pancreas is atrophic with [...] small bowel are normal in caliber. The oralcontrast has migrated into the distal small bowel. The appendix is unremarkable. [...] right-sided complex abdominal wall fluid collection with involvement of the rectal sheath as detailed above. Of note, the right-sided surgical drain extends first into the peritoneal cavity and then the tip subsequently extends back into the abdominal wall within the fluid collection. Biliary stent, intrabiliary but low in position. New common bile duct dilatation, a component of which may reflect increased capacitance of the biliary system following cholecystectomy. Distal biliary obstruction (? stent occlusion) should also be considered. Recommend correlation with patient's liver function studies and clinical presentation. 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 However, one-year follow-up adrenal washout CT recommended to exclude a more aggressive process. If stable on the follow-up 1 year examination, no further imaging required. Mild nonspecific wall thickening of the distal esophagus as detailed. Smallright pleural effusion with atelectasis, stable. Large colonic fecal burden/constipation. Signed: Tony Rushing MDReport Verified Date/Time: 04/26/2018 20:18:36 Reading Location: [address] Reading Room MAGNESIUM 2018-04-26 13:11:00* Test Item Value Reference Range Interpretation Comme nts MAGNESIUM (BEAKER) (test cod e = 627) 1.5 mg/dL 1.6-2.6 L BASIC METABOLIC [id number] 13:11:00* Test Item Value Reference Range Interpretation Comme nts SODIUM (BEAKER) (test code = 381) 139 meq/L 136-145 POTASSIUM (BEAKER) (test code = 379) 4.0 meq/L 3.5-5.1 CHLORIDE (BEAKER) (test code = 382) 105 meq/L 98-107 CO2 (BEAKER) (test code = 355) 30 meq/L 22-29 H BLOOD UREA NITROGEN (BEAKER) (test code = 354) 11 mg/dL 7-21 CREATININE (BEAKER) (test code = 358) 0.73 mg/dL 0.57-1.25 GLUCOSE RANDOM (BEAKER) (test code = 652) 89 mg/dL 70-105 CALCIUM (BEAKER) (test code = 697) 10.3 mg/dL 8.4-10.2 H EGFR (BEAKER) (test code = 1092) 108 mL/min/1.73 sq m ESTIMATED GFR IS NOT ACCURATE CREATININE CLEARANCE IN PREDICTING GLOMERULAR FILTRATION RATE. ESTIMATED GFR IS NOT APPLICABLE FOR DIALYSIS PATIENTS. HEPATIC FUNCTION [id number] 13:11:00* Test Item Value Reference Range Interpretation Comme nts TOTAL PROTEIN (BEAKER) (test code = 770) 7.7 gm/dL 6.0-8.3 ALBUMIN (BEAKER) (test code = 1145) 3.6 g/dL 3.5-5.0 BILIRUBIN TOTAL (BEAKER) (te st code = 377) 0.9 mg/dL 0.2-1.2 BILIRUBIN DIRECT (BEAKER) (t est code = 706) 0.4 mg/dL 0.1-0.5 ALKALINE PHOSPHATASE (BEAKER ) (test code = 346) 113 U/L 40-150 AST (SGOT) (BEAKER) (test co de = 353) 19 U/L 5-34 ALT (SGPT) (BEAKER) (test co de = 347) 10 U/L 6-55 [id number] 13:02:00* Test Item Value Reference Range Interpretation Comme nts PARTIAL THROMBOPLASTIN TIME (BEAKER) (test code = 760) 52.9 seconds 22.5-36.0 H PROTHROMBIN [id number] 13:00:00* Test Item Value Reference Range Interpretation Comme nts PROTIME (BEAKER) (test code = 759) 20.0 seconds 11.7-14.7 H INR (BEAKER) (test code = 370) 1.7 <=5.9 RECOMMENDED COUMADIN/WARFARIN INR THERAPY RANGESSTANDARD DOSE: 2.0 - 3.0 Includes: PROPHYLAXIS for venous thrombosis, systemic embolization; TREATMENT for venous thrombosis and/or pulmonary embolus.HIGH RISK: Target INR is 2.5-3.5 for patients with mechanical heart valves.CBC W/PLT COUNT & AUTO DIFFERENTIAL 2018-04-26 12:57:00* Test Item Value Reference Range Interpretation Comme nts WHITE BLOOD CELL COUNT (BEAK ER) (test code = 775) 6.2 K/ L 3.5-10.5 RED BLOOD CELL COUNT (BEAKER ) (test code = 761) 3.49 M/ L 4.63-6.08 L HEMOGLOBIN (BEAKER) (test co de = 410) 10.4 GM/DL 13.7-17.5 L HEMATOCRIT (BEAKER) (test co de = 411) 33.2 % 40.1-51.0 L MEAN CORPUSCULAR VOLUME (PANCHO KER) (test code = 753) 95.1 fL 79.0-92.2 H MEAN CORPUSCULAR HEMOGLOBIN (BEAKER) (test code = 751) 29.8 pg 25.7-32.2 MEAN CORPUSCULAR HEMOGLOBIN CONC (BEAKER) (test code = 752) 31.3 GM/DL 32.3-36.5 L RED CELL DISTRIBUTION WIDTH (BEAKER) (test code = 412) 15.3 % 11.6-14.4 H PLATELET COUNT (BEAKER) (david t code = 756) 353 K/CU MM 150-450 MEAN PLATELET VOLUME (BEAKER ) (test code = 754) 9.1 fL 9.4-12.4 L NUCLEATED RED BLOOD CELLS (BEAKER) (test code = 413) 0 /100 WBC 0-0 NEUTROPHILS RELATIVE PERCENT (BEAKER) (test code = 429) 45 % LYMPHOCYTES RELATIVE PERCENT (BEAKER) (test code = 430) 44 % MONOCYTES RELATIVE PERCENT (BEAKER) (test code = 431) 8 % EOSINOPHILS RELATIVE PERCENT (BEAKER) (test code = 432) 3 % BASOPHILS RELATIVE PERCENT (BEAKER) (test code = 437) 1 % NEUTROPHILS ABSOLUTE COUNT (BEAKER) (test code = 670) 2.77 K/ L 1.78-5.38 LYMPHOCYTES ABSOLUTE COUNT (BEAKER) (test code = 414) 2.70 K/ L 1.32-3.57 MONOCYTES ABSOLUTE COUNT (BE LILI) (test code = 415) 0.48 K/ L 0.30-0.82 EOSINOPHILS ABSOLUTE COUNT (BEAKER) (test code = 416) 0.20 K/ L 0.04-0.54 BASOPHILS ABSOLUTE COUNT (BE LILI) (test code = 417) 0.03 K/ L 0.01-0.08 IMMATURE GRANULOCYTES-RELATI VE PERCENT (BEAKER) (test code = 2801) 0 % 0-1 [id number] 07:26:00* Test Item Value Reference Range Interpretation Comme nts MAGNESIUM (BEAKER) (test cod e = 627) 2.0 mg/dL 1.6-2.6 BASIC METABOLIC [id number] 07:26:00* Test Item Value Reference Range Interpretation Comme nts SODIUM (BEAKER) (test code = 381) 137 meq/L 136-145 POTASSIUM (BEAKER) (test code = 379) 3.9 meq/L 3.5-5.1 CHLORIDE (BEAKER) (test code = 382) 106 meq/L 98-107 CO2 (BEAKER) (test code = 355) 25 meq/L 22-29 BLOOD UREA NITROGEN (BEAKER) (test code = 354) 8 mg/dL 7-21 CREATININE (BEAKER) (test code = 358) 0.65 mg/dL 0.57-1.25 GLUCOSE RANDOM (BEAKER) (test code = 652) 86 mg/dL 70-105 CALCIUM (BEAKER) (test code = 697) 8.8 mg/dL 8.4-10.2 EGFR (BEAKER) (test code = 1092) 123 mL/min/1.73 sq m ESTIMATED GFR IS NOT ACCURATE CREATININE CLEARANCE IN PREDICTING GLOMERULAR FILTRATION RATE. ESTIMATED GFR IS NOT APPLICABLE FOR DIALYSIS PATIENTS. HEPATIC FUNCTION [id number] 07:26:00* Test Item Value Reference Range Interpretation Comme nts TOTAL PROTEIN (BEAKER) (test code = 770) 6.5 gm/dL 6.0-8.3 ALBUMIN (BEAKER) (test code = 1145) 2.6 g/dL 3.5-5.0 L BILIRUBIN TOTAL (BEAKER) (te st code = 377) 1.5 mg/dL 0.2-1.2 H BILIRUBIN DIRECT (BEAKER) (t est code = 706) 0.7 mg/dL 0.1-0.5 H ALKALINE PHOSPHATASE (BEAKER ) (test code = 346) 106 U/L 40-150 AST (SGOT) (BEAKER) (test co de = 353) 30 U/L 5-34 ALT (SGPT) (BEAKER) (test co de = 347) 12 U/L 6-55 [id number] 07:25:00* Test Item Value Reference Range Interpretation Comme nts PHOSPHORUS (BEAKER) (test co de = 604) 2.6 mg/dL 2.3-4.7 PROTHROMBIN [id number] 07:11:00* Test Item Value Reference Range Interpretation Comme nts PROTIME (BEAKER) (test code = 759) 27.4 seconds 11.7-14.7 H INR (BEAKER) (test code = 370) 2.6 <=5.9 RECOMMENDED COUMADIN/WARFARIN INR THERAPY RANGESSTANDARD DOSE: 2.0 - 3.0 Includes: PROPHYLAXIS for venous thrombosis, systemic embolization; TREATMENT for venous thrombosis and/or pulmonary embolus.HIGH RISK: Target INR is 2.5-3.5 for patients with mechanical heart valves.CBC W/PLT COUNT & AUTO DIFFERENTIAL 2018-03-30 06:57:00* Test Item Value Reference Range Interpretation Comme nts WHITE BLOOD CELL COUNT (BEAK ER) (test code = 775) 8.2 K/ L 3.5-10.5 RED BLOOD CELL COUNT (BEAKER ) (test code = 761) 3.40 M/ L 4.63-6.08 L HEMOGLOBIN (BEAKER) (test co de = 410) 10.3 GM/DL 13.7-17.5 L HEMATOCRIT (BEAKER) (test co de = 411) 32.0 % 40.1-51.0 L MEAN CORPUSCULAR VOLUME (PANCHO KER) (test code = 753) 94.1 fL 79.0-92.2 H MEAN CORPUSCULAR HEMOGLOBIN (BEAKER) (test code = 751) 30.3 pg 25.7-32.2 MEAN CORPUSCULAR HEMOGLOBIN CONC (BEAKER) (test code = 752) 32.2 GM/DL 32.3-36.5 L RED CELL DISTRIBUTION WIDTH (BEAKER) (test code = 412) 15.9 % 11.6-14.4 H PLATELET COUNT (BEAKER) (david t code = 756) 349 K/CU MM 150-450 MEAN PLATELET VOLUME (BEAKER ) (test code = 754) 9.7 fL 9.4-12.4 NUCLEATED RED BLOOD CELLS (BEAKER) (test code = 413) 0 /100 WBC 0-0 NEUTROPHILS RELATIVE PERCENT (BEAKER) (test code = 429) 60 % LYMPHOCYTES RELATIVE PERCENT (BEAKER) (test code = 430) 30 % MONOCYTES RELATIVE PERCENT (BEAKER) (test code = 431) 7 % EOSINOPHILS RELATIVE PERCENT (BEAKER) (test code = 432) 2 % BASOPHILS RELATIVE PERCENT (BEAKER) (test code = 437) 1 % NEUTROPHILS ABSOLUTE COUNT (BEAKER) (test code = 670) 4.93 K/ L 1.78-5.38 LYMPHOCYTES ABSOLUTE COUNT (BEAKER) (test code = 414) 2.50 K/ L 1.32-3.57 MONOCYTES ABSOLUTE COUNT (BE LILI) (test code = 415) 0.56 K/ L 0.30-0.82 EOSINOPHILS ABSOLUTE COUNT (BEAKER) (test code = 416) 0.18 K/ L 0.04-0.54 BASOPHILS ABSOLUTE COUNT (BE LILI) (test code = 417) 0.04 K/ L 0.01-0.08 IMMATURE GRANULOCYTES-RELATI VE PERCENT (BEAKER) (test code = 2801) 0 % 0-1 HEPATIC FUNCTION [id number] 07:51:00* Test Item Value Reference Range Interpretation Comme nts TOTAL PROTEIN (BEAKER) (test code = 770) 6.0 gm/dL 6.0-8.3 ALBUMIN (BEAKER) (test code = 1145) 2.5 g/dL 3.5-5.0 L BILIRUBIN TOTAL (BEAKER) (te st code = 377) 1.4 mg/dL 0.2-1.2 H BILIRUBIN DIRECT (BEAKER) (t est code = 706) 0.7 mg/dL 0.1-0.5 H ALKALINE PHOSPHATASE (BEAKER ) (test code = 346) 95 U/L 40-150 AST (SGOT) (BEAKER) (test co de = 353) 39 U/L 5-34 H ALT (SGPT) (BEAKER) (test co de = 347) 12 U/L 6-55 [id number] 06:10:00* Test Item Value Reference Range Interpretation Comme nts PHOSPHORUS (BEAKER) (test co de = 604) 2.5 mg/dL 2.3-4.7 [id number] 06:10:00* Test Item Value Reference Range Interpretation Comme nts MAGNESIUM (BEAKER) (test cod e = 627) 1.8 mg/dL 1.6-2.6 BASIC METABOLIC [id number] 06:10:00* Test Item Value Reference Range Interpretation Comme nts SODIUM (BEAKER) (test code = 381) 138 meq/L 136-145 POTASSIUM (BEAKER) (test code = 379) 3.8 meq/L 3.5-5.1 CHLORIDE (BEAKER) (test code = 382) 108 meq/L 98-107 H CO2 (BEAKER) (test code = 355) 26 meq/L 22-29 BLOOD UREA NITROGEN (BEAKER) (test code = 354) 9 mg/dL 7-21 CREATININE (BEAKER) (test code = 358) 0.62 mg/dL 0.57-1.25 GLUCOSE RANDOM (BEAKER) (test code = 652) 93 mg/dL 70-105 CALCIUM (BEAKER) (test code = 697) 9.0 mg/dL 8.4-10.2 EGFR (BEAKER) (test code = 1092) 130 mL/min/1.73 sq m ESTIMATED GFR IS NOT ACCURATE CREATININE CLEARANCE IN PREDICTING GLOMERULAR FILTRATION RATE. ESTIMATED GFR IS NOT APPLICABLE FOR DIALYSIS PATIENTS. PROTHROMBIN [id number] 05:54:00* Test Item Value Reference Range Interpretation Comme nts PROTIME (BEAKER) (test code = 759) 26.4 seconds 11.7-14.7 H INR (BEAKER) (test code = 370) 2.4 <=5.9 RECOMMENDED COUMADIN/WARFARIN INR THERAPY RANGESSTANDARD DOSE: 2.0 - 3.0 Includes: PROPHYLAXIS for venous thrombosis, systemic embolization; TREATMENT for venous thrombosis and/or pulmonary embolus.HIGH RISK: Target INR is 2.5-3.5 for patients with mechanical heart valves.CBC W/PLT COUNT & AUTO DIFFERENTIAL 2018-03-29 05:38:00* Test Item Value Reference Range Interpretation Comme nts WHITE BLOOD CELL COUNT (BEAK ER) (test code = 775) 10.3 K/ L 3.5-10.5 RED BLOOD CELL COUNT (BEAKER ) (test code = 761) 3.23 M/ L 4.63-6.08 L HEMOGLOBIN (BEAKER) (test co de = 410) 9.8 GM/DL 13.7-17.5 L HEMATOCRIT (BEAKER) (test co de = 411) 30.1 % 40.1-51.0 L MEAN CORPUSCULAR VOLUME (PANCHO KER) (test code = 753) 93.2 fL 79.0-92.2 H MEAN CORPUSCULAR HEMOGLOBIN (BEAKER) (test code = 751) 30.3 pg 25.7-32.2 MEAN CORPUSCULAR HEMOGLOBIN CONC (BEAKER) (test code = 752) 32.6 GM/DL 32.3-36.5 RED CELL DISTRIBUTION WIDTH (BEAKER) (test code = 412) 15.9 % 11.6-14.4 H PLATELET COUNT (BEAKER) (david t code = 756) 332 K/CU MM 150-450 MEAN PLATELET VOLUME (BEAKER ) (test code = 754) 9.9 fL 9.4-12.4 NUCLEATED RED BLOOD CELLS (BEAKER) (test code = 413) 0 /100 WBC 0-0 NEUTROPHILS RELATIVE PERCENT (BEAKER) (test code = 429) 64 % LYMPHOCYTES RELATIVE PERCENT (BEAKER) (test code = 430) 27 % MONOCYTES RELATIVE PERCENT (BEAKER) (test code = 431) 6 % EOSINOPHILS RELATIVE PERCENT (BEAKER) (test code = 432) 2 % BASOPHILS RELATIVE PERCENT (BEAKER) (test code = 437) 0 % NEUTROPHILS ABSOLUTE COUNT (BEAKER) (test code = 670) 6.61 K/ L 1.78-5.38 H LYMPHOCYTES ABSOLUTE COUNT (BEAKER) (test code = 414) 2.80 K/ L 1.32-3.57 MONOCYTES ABSOLUTE COUNT (BE LILI) (test code = 415) 0.58 K/ L 0.30-0.82 EOSINOPHILS ABSOLUTE COUNT (BEAKER) (test code = 416) 0.18 K/ L 0.04-0.54 BASOPHILS ABSOLUTE COUNT (BE LILI) (test code = 417) 0.04 K/ L 0.01-0.08 IMMATURE GRANULOCYTES-RELATI VE PERCENT (BEAKER) (test code = 2801) 1 % 0-1 PROTHROMBIN [id number] 09:25:00* Test Item Value Reference Range Interpretation Comme nts PROTIME (BEAKER) (test code = 759) 30.8 seconds 11.7-14.7 H INR (BEAKER) (test code = 370) 3.0 <=5.9 RECOMMENDED COUMADIN/WARFARIN INR THERAPY RANGESSTANDARD DOSE: 2.0 - 3.0 Includes: PROPHYLAXIS for venous thrombosis, systemic embolization; TREATMENT for venous thrombosis and/or pulmonary embolus.HIGH RISK: Target INR is 2.5-3.5 for patients with mechanical heart valves.[id number] 09:15:00* Test Item Value Reference Range Interpretation Comme nts PHOSPHORUS (BEAKER) (test co de = 604) 2.5 mg/dL 2.3-4.7 [id number] 09:15:00* Test Item Value Reference Range Interpretation Comme nts MAGNESIUM (BEAKER) (test cod e = 627) 1.8 mg/dL 1.6-2.6 BASIC METABOLIC [id number] 09:15:00* Test Item Value Reference Range Interpretation Comme nts SODIUM (BEAKER) (test code = 381) 138 meq/L 136-145 POTASSIUM (BEAKER) (test code = 379) 3.7 meq/L 3.5-5.1 CHLORIDE (BEAKER) (test code = 382) 107 meq/L 98-107 CO2 (BEAKER) (test code = 355) 27 meq/L 22-29 BLOOD UREA NITROGEN (BEAKER) (test code = 354) 10 mg/dL 7-21 CREATININE (BEAKER) (test code = 358) 0.60 mg/dL 0.57-1.25 GLUCOSE RANDOM (BEAKER) (test code = 652) 87 mg/dL 70-105 CALCIUM (BEAKER) (test code = 697) 8.5 mg/dL 8.4-10.2 EGFR (BEAKER) (test code = 1092) 135 mL/min/1.73 sq m ESTIMATED GFR IS NOT ACCURATE CREATININE CLEARANCE IN PREDICTING GLOMERULAR FILTRATION RATE. ESTIMATED GFR IS NOT APPLICABLE FOR DIALYSIS PATIENTS. CBC W/PLT COUNT & AUTO [id number] 08:59:00* Test Item Value Reference Range Interpretation Comme nts WHITE BLOOD CELL COUNT (BEAK ER) (test code = 775) 10.3 K/ L 3.5-10.5 RED BLOOD CELL COUNT (BEAKER ) (test code = 761) 3.30 M/ L 4.63-6.08 L HEMOGLOBIN (BEAKER) (test co de = 410) 10.0 GM/DL 13.7-17.5 L HEMATOCRIT (BEAKER) (test co de = 411) 30.6 % 40.1-51.0 L MEAN CORPUSCULAR VOLUME (PANCHO KER) (test code = 753) 92.7 fL 79.0-92.2 H MEAN CORPUSCULAR HEMOGLOBIN (BEAKER) (test code = 751) 30.3 pg 25.7-32.2 MEAN CORPUSCULAR HEMOGLOBIN CONC (BEAKER) (test code = 752) 32.7 GM/DL 32.3-36.5 RED CELL DISTRIBUTION WIDTH (BEAKER) (test code = 412) 16.1 % 11.6-14.4 H PLATELET COUNT (BEAKER) (david t code = 756) 340 K/CU MM 150-450 MEAN PLATELET VOLUME (BEAKER ) (test code = 754) 10.3 fL 9.4-12.4 NUCLEATED RED BLOOD CELLS (BEAKER) (test code = 413) 0 /100 WBC 0-0 NEUTROPHILS RELATIVE PERCENT (BEAKER) (test code = 429) 65 % LYMPHOCYTES RELATIVE PERCENT (BEAKER) (test code = 430) 26 % MONOCYTES RELATIVE PERCENT (BEAKER) (test code = 431) 6 % EOSINOPHILS RELATIVE PERCENT (BEAKER) (test code = 432) 2 % BASOPHILS RELATIVE PERCENT (BEAKER) (test code = 437) 0 % NEUTROPHILS ABSOLUTE COUNT (BEAKER) (test code = 670) 6.67 K/ L 1.78-5.38 H LYMPHOCYTES ABSOLUTE COUNT (BEAKER) (test code = 414) 2.69 K/ L 1.32-3.57 MONOCYTES ABSOLUTE COUNT (BE LILI) (test code = 415) 0.64 K/ L 0.30-0.82 EOSINOPHILS ABSOLUTE COUNT (BEAKER) (test code = 416) 0.19 K/ L 0.04-0.54 BASOPHILS ABSOLUTE COUNT (BE LILI) (test code = 417) 0.02 K/ L 0.01-0.08 IMMATURE GRANULOCYTES-RELATI VE PERCENT (BEAKER) (test code = 2801) 1 % 0-1 [id number] 09:36:00* Test Item Value Reference Range Interpretation Comme nts PHOSPHORUS (BEAKER) (test co de = 604) 2.4 mg/dL 2.3-4.7 [id number] 09:36:00* Test Item Value Reference Range Interpretation Comme nts MAGNESIUM (BEAKER) (test cod e = 627) 1.7 mg/dL 1.6-2.6 BASIC METABOLIC [id number] 09:36:00* Test Item Value Reference Range Interpretation Comme nts SODIUM (BEAKER) (test code = 381) 137 meq/L 136-145 POTASSIUM (BEAKER) (test code = 379) 3.6 meq/L 3.5-5.1 CHLORIDE (BEAKER) (test code = 382) 108 meq/L 98-107 H CO2 (BEAKER) (test code = 355) 26 meq/L 22-29 BLOOD UREA NITROGEN (BEAKER) (test code = 354) 10 mg/dL 7-21 CREATININE (BEAKER) (test code = 358) 0.60 mg/dL 0.57-1.25 GLUCOSE RANDOM (BEAKER) (test code = 652) 87 mg/dL 70-105 CALCIUM (BEAKER) (test code = 697) 8.6 mg/dL 8.4-10.2 EGFR (BEAKER) (test code = 1092) 135 mL/min/1.73 sq m ESTIMATED GFR IS NOT ACCURATE CREATININE CLEARANCE IN PREDICTING GLOMERULAR FILTRATION RATE. ESTIMATED GFR IS NOT APPLICABLE FOR DIALYSIS PATIENTS. PROTHROMBIN [id number] 09:32:00* Test Item Value Reference Range Interpretation Comme nts PROTIME (BEAKER) (test code = 759) 32.2 seconds 11.7-14.7 H INR (BEAKER) (test code = 370) 3.2 <=5.9 RECOMMENDED COUMADIN/WARFARIN INR THERAPY RANGESSTANDARD DOSE: 2.0 - 3.0 Includes: PROPHYLAXIS for venous thrombosis, systemic embolization; TREATMENT for venous thrombosis and/or pulmonary embolus.HIGH RISK: Target INR is 2.5-3.5 for patients with mechanical heart valves.CBC W/PLT COUNT & AUTO DIFFERENTIAL 2018-03-27 09:13:00* Test Item Value Reference Range Interpretation Comme nts WHITE BLOOD CELL COUNT (BEAK ER) (test code = 775) 10.9 K/ L 3.5-10.5 H RED BLOOD CELL COUNT (BEAKER ) (test code = 761) 3.22 M/ L 4.63-6.08 L HEMOGLOBIN (BEAKER) (test co de = 410) 9.9 GM/DL 13.7-17.5 L HEMATOCRIT (BEAKER) (test co de = 411) 29.6 % 40.1-51.0 L MEAN CORPUSCULAR VOLUME (PANCHO KER) (test code = 753) 91.9 fL 79.0-92.2 MEAN CORPUSCULAR HEMOGLOBIN (BEAKER) (test code = 751) 30.7 pg 25.7-32.2 MEAN CORPUSCULAR HEMOGLOBIN CONC (BEAKER) (test code = 752) 33.4 GM/DL 32.3-36.5 RED CELL DISTRIBUTION WIDTH (BEAKER) (test code = 412) 16.1 % 11.6-14.4 H PLATELET COUNT (BEAKER) (david t code = 756) 309 K/CU MM 150-450 MEAN PLATELET VOLUME (BEAKER ) (test code = 754) 10.0 fL 9.4-12.4 NUCLEATED RED BLOOD CELLS (BEAKER) (test code = 413) 0 /100 WBC 0-0 NEUTROPHILS RELATIVE PERCENT (BEAKER) (test code = 429) 62 % LYMPHOCYTES RELATIVE PERCENT (BEAKER) (test code = 430) 29 % MONOCYTES RELATIVE PERCENT (BEAKER) (test code = 431) 6 % EOSINOPHILS RELATIVE PERCENT (BEAKER) (test code = 432) 1 % BASOPHILS RELATIVE PERCENT (BEAKER) (test code = 437) 0 % NEUTROPHILS ABSOLUTE COUNT (BEAKER) (test code = 670) 6.83 K/ L 1.78-5.38 H LYMPHOCYTES ABSOLUTE COUNT (BEAKER) (test code = 414) 3.22 K/ L 1.32-3.57 MONOCYTES ABSOLUTE COUNT (BE LILI) (test code = 415) 0.64 K/ L 0.30-0.82 EOSINOPHILS ABSOLUTE COUNT (BEAKER) (test code = 416) 0.15 K/ L 0.04-0.54 BASOPHILS ABSOLUTE COUNT (BE LILI) (test code = 417) 0.02 K/ L 0.01-0.08 IMMATURE GRANULOCYTES-RELATI VE PERCENT (BEAKER) (test code = 2801) 1 % 0-1 BLOOD [id number] 19:01:00* Test Item Value Reference Range Interpretation Comme nts CULTURE (BEAKER) (test code = 1095) No growth in 5 days POCT-GLUCOSE [id number] 17:07:00* Test Item Value Reference Range Interpretation Comme nts POC-GLUCOSE METER (BEAKER) (test code = 1538) 97 mg/dL 70-110 TESTED AT [address] [address] POCT-GLUCOSE [id number] 16:56:00* Test Item Value Reference Range Interpretation Comme nts POC-GLUCOSE METER (BEAKER) (test code = 1538) 122 mg/dL 70-110 H TESTED AT [address] [address] HEPATIC FUNCTION [id number] 09:24:00* Test Item Value Reference Range Interpretation Comme nts TOTAL PROTEIN (BEAKER) (test code = 770) 5.7 gm/dL 6.0-8.3 L ALBUMIN (BEAKER) (test code = 1145) 2.3 g/dL 3.5-5.0 L BILIRUBIN TOTAL (BEAKER) (te st code = 377) 1.7 mg/dL 0.2-1.2 H BILIRUBIN DIRECT (BEAKER) (t est code = 706) 0.7 mg/dL 0.1-0.5 H ALKALINE PHOSPHATASE (BEAKER ) (test code = 346) 100 U/L 40-150 AST (SGOT) (BEAKER) (test co de = 353) 48 U/L 5-34 H ALT (SGPT) (BEAKER) (test co de = 347) 14 U/L 6-55 POCT-GLUCOSE [id number] 08:47:00* Test Item Value Reference Range Interpretation Comme nts POC-GLUCOSE METER (BEAKER) (test code = 1538) 82 mg/dL 70-[address] [facility] [address] [facility] [address] CBC W/PLT COUNT & AUTO [id number] 08:39:00* Test Item Value Reference Range Interpretation Comme nts WHITE BLOOD CELL COUNT (BEAK ER) (test code = 775) 14.4 K/ L 3.5-10.5 H RED BLOOD CELL COUNT (BEAKER ) (test code = 761) 3.50 M/ L 4.63-6.08 L HEMOGLOBIN (BEAKER) (test co de = 410) 10.6 GM/DL 13.7-17.5 L HEMATOCRIT (BEAKER) (test co de = 411) 32.4 % 40.1-51.0 L MEAN CORPUSCULAR VOLUME (PANCHO KER) (test code = 753) 92.6 fL 79.0-92.2 H MEAN CORPUSCULAR HEMOGLOBIN (BEAKER) (test code = 751) 30.3 pg 25.7-32.2 MEAN CORPUSCULAR HEMOGLOBIN CONC (BEAKER) (test code = 752) 32.7 GM/DL 32.3-36.5 RED CELL DISTRIBUTION WIDTH (BEAKER) (test code = 412) 16.9 % 11.6-14.4 H PLATELET COUNT (BEAKER) (david t code = 756) 301 K/CU MM 150-450 MEAN PLATELET VOLUME (BEAKER ) (test code = 754) 10.6 fL 9.4-12.4 NUCLEATED RED BLOOD CELLS (BEAKER) (test code = 413) 0 /100 WBC 0-0 NEUTROPHILS RELATIVE PERCENT (BEAKER) (test code = 429) 68 % LYMPHOCYTES RELATIVE PERCENT (BEAKER) (test code = 430) 24 % MONOCYTES RELATIVE PERCENT (BEAKER) (test code = 431) 5 % EOSINOPHILS RELATIVE PERCENT (BEAKER) (test code = 432) 2 % BASOPHILS RELATIVE PERCENT (BEAKER) (test code = 437) 0 % NEUTROPHILS ABSOLUTE COUNT (BEAKER) (test code = 670) 9.73 K/ L 1.78-5.38 H LYMPHOCYTES ABSOLUTE COUNT (BEAKER) (test code = 414) 3.48 K/ L 1.32-3.57 MONOCYTES ABSOLUTE COUNT (BE LILI) (test code = 415) 0.70 K/ L 0.30-0.82 EOSINOPHILS ABSOLUTE COUNT (BEAKER) (test code = 416) 0.30 K/ L 0.04-0.54 BASOPHILS ABSOLUTE COUNT (BE LILI) (test code = 417) 0.03 K/ L 0.01-0.08 IMMATURE GRANULOCYTES-RELATI VE PERCENT (BEAKER) (test code = 2801) 1 % 0-1 [id number] 06:51:00* Test Item Value Reference Range Interpretation Comme nts PHOSPHORUS (BEAKER) (test co de = 604) 1.6 mg/dL 2.3-4.7 L [id number] 06:51:00* Test Item Value Reference Range Interpretation Comme nts MAGNESIUM (BEAKER) (test cod e = 627) 1.9 mg/dL 1.6-2.6 BASIC METABOLIC [id number] 06:51:00* Test Item Value Reference Range Interpretation Comme nts SODIUM (BEAKER) (test code = 381) 138 meq/L 136-145 POTASSIUM (BEAKER) (test code = 379) 3.8 meq/L 3.5-5.1 CHLORIDE (BEAKER) (test code = 382) 106 meq/L 98-107 CO2 (BEAKER) (test code = 355) 24 meq/L 22-29 BLOOD UREA NITROGEN (BEAKER) (test code = 354) 15 mg/dL 7-21 CREATININE (BEAKER) (test code = 358) 0.58 mg/dL 0.57-1.25 GLUCOSE RANDOM (BEAKER) (test code = 652) 69 mg/dL 70-105 L CALCIUM (BEAKER) (test code = 697) 8.3 mg/dL 8.4-10.2 L EGFR (BEAKER) (test code = 1092) 141 mL/min/1.73 sq m ESTIMATED GFR IS NOT ACCURATE CREATININE CLEARANCE IN PREDICTING GLOMERULAR FILTRATION RATE. ESTIMATED GFR IS NOT APPLICABLE FOR DIALYSIS PATIENTS. PROTHROMBIN [id number] 06:48:00* Test Item Value Reference Range Interpretation Comme nts PROTIME (BEAKER) (test code = 759) 29.8 seconds 11.7-14.7 H INR (BEAKER) (test code = 370) 2.9 <=5.9 RECOMMENDED COUMADIN/WARFARIN INR THERAPY RANGESSTANDARD DOSE: 2.0 - 3.0 Includes: PROPHYLAXIS for venous thrombosis, systemic embolization; TREATMENT for venous thrombosis and/or pulmonary embolus.HIGH RISK: Target INR is 2.5-3.5 for patients with mechanical heart valves.BASIC METABOLIC [id number] 01:00:00* Test Item Value Reference Range Interpretation Comme nts SODIUM (BEAKER) (test code = 381) 137 meq/L 136-145 POTASSIUM (BEAKER) (test code = 379) 3.7 meq/L 3.5-5.1 CHLORIDE (BEAKER) (test code = 382) 107 meq/L 98-107 CO2 (BEAKER) (test code = 355) 26 meq/L 22-29 BLOOD UREA NITROGEN (BEAKER) (test code = 354) 17 mg/dL 7-21 CREATININE (BEAKER) (test code = 358) 0.57 mg/dL 0.57-1.25 GLUCOSE RANDOM (BEAKER) (test code = 652) 87 mg/dL 70-105 CALCIUM (BEAKER) (test code = 697) 8.4 mg/dL 8.4-10.2 EGFR (BEAKER) (test code = 1092) 143 mL/min/1.73 sq m ESTIMATED GFR IS NOT ACCURATE CREATININE CLEARANCE IN PREDICTING GLOMERULAR FILTRATION RATE. ESTIMATED GFR IS NOT APPLICABLE FOR DIALYSIS PATIENTS. HEMOGLOBIN AND [id number] 00:44:00* Test Item Value Reference Range Interpretation Comme nts HEMOGLOBIN (BEAKER) (test co de = 410) 10.0 GM/DL 13.7-17.5 L HEMATOCRIT (BEAKER) (test co de = 411) 30.5 % 40.1-51.0 L POCT-GLUCOSE [id number] 00:41:00* Test Item Value Reference Range Interpretation Comme nts POC-GLUCOSE METER (BEAKER) (test code = 1538) 100 mg/dL 70-[address] [facility] [address] [place] [id number] PROTHROMBIN [id number] 23:45:00* Test Item Value Reference Range Interpretation Comme nts PROTIME (BEAKER) (test code = 759) 30.7 seconds 11.7-14.7 H INR (BEAKER) (test code = 370) 3.0 <=5.9 RECOMMENDED COUMADIN/WARFARIN INR THERAPY RANGESSTANDARD DOSE: 2.0 - 3.0 Includes: PROPHYLAXIS for venous thrombosis, systemic embolization; TREATMENT for venous thrombosis and/or pulmonary embolus.HIGH RISK: Target INR is 2.5-3.5 for patients with mechanical heart valves.POCT-GLUCOSE [id number] 18:15:00 * Test Item Value Reference Range Interpretation Comme nts POC-GLUCOSE METER (BEAKER) (test code = 1538) 113 mg/dL 70-110 H TESTED AT [address] [address] PROTHROMBIN [id number] 13:06:00* Test Item Value Reference Range Interpretation Comme nts PROTIME (BEAKER) (test code = 759) 28.3 seconds 11.7-14.7 H INR (BEAKER) (test code = 370) 2.6 <=5.9 RECOMMENDED COUMADIN/WARFARIN INR THERAPY RANGESSTANDARD DOSE: 2.0 - 3.0 Includes: PROPHYLAXIS for venous thrombosis, systemic embolization; TREATMENT for venous thrombosis and/or pulmonary embolus.HIGH RISK: Target INR is 2.5-3.5 for patients with mechanical heart valves.HEMOGLOBIN AND [id number] 12:43:00* Test Item Value Reference Range Interpretation Comme nts HEMOGLOBIN (BEAKER) (test co de = 410) 9.9 GM/DL 13.7-17.5 L HEMATOCRIT (BEAKER) (test co de = 411) 29.7 % 40.1-51.0 L POCT-GLUCOSE [id number] 12:09:00* Test Item Value Reference Range Interpretation Comme nts POC-GLUCOSE METER (BEAKER) (test code = 1538) 144 mg/dL 70-110 H TESTED AT [address] [address] HEMOGLOBIN AND [id number] 06:16:00* Test Item Value Reference Range Interpretation Comme nts HEMOGLOBIN (BEAKER) (test co de = 410) 9.0 GM/DL 13.7-17.5 L HEMATOCRIT (BEAKER) (test co de = 411) 28.0 % 40.1-51.0 L POCT-GLUCOSE [id number] 06:00:00* Test Item Value Reference Range Interpretation Comme nts POC-GLUCOSE METER (BEAKER) (test code = 1538) 118 mg/dL 70-[address] [facility] [address] [facility] [address] [id number] 05:20:00* Test Item Value Reference Range Interpretation Comme nts PHOSPHORUS (BEAKER) (test co de = 604) 2.7 mg/dL 2.3-4.7 [id number] 05:20:00* Test Item Value Reference Range Interpretation Comme nts MAGNESIUM (BEAKER) (test cod e = 627) 1.9 mg/dL 1.6-2.6 BASIC METABOLIC [id number] 05:20:00* Test Item Value Reference Range Interpretation Comme nts SODIUM (BEAKER) (test code = 381) 143 meq/L 136-145 POTASSIUM (BEAKER) (test code = 379) 4.2 meq/L 3.5-5.1 CHLORIDE (BEAKER) (test code = 382) 112 meq/L 98-107 H CO2 (BEAKER) (test code = 355) 27 meq/L 22-29 BLOOD UREA NITROGEN (BEAKER) (test code = 354) 22 mg/dL 7-21 H CREATININE (BEAKER) (test code = 358) 0.59 mg/dL 0.57-1.25 GLUCOSE RANDOM (BEAKER) (test code = 652) 119 mg/dL 70-105 H CALCIUM (BEAKER) (test code = 697) 8.4 mg/dL 8.4-10.2 EGFR (BEAKER) (test code = 1092) 138 mL/min/1.73 sq m ESTIMATED GFR IS NOT ACCURATE CREATININE CLEARANCE IN PREDICTING GLOMERULAR FILTRATION RATE. ESTIMATED GFR IS NOT APPLICABLE FOR DIALYSIS PATIENTS. HEPATIC FUNCTION [id number] 05:20:00* Test Item Value Reference Range Interpretation Comme nts TOTAL PROTEIN (BEAKER) (test code = 770) 5.3 gm/dL 6.0-8.3 L ALBUMIN (BEAKER) (test code = 1145) 2.3 g/dL 3.5-5.0 L BILIRUBIN TOTAL (BEAKER) (te st code = 377) 1.5 mg/dL 0.2-1.2 H BILIRUBIN DIRECT (BEAKER) (t est code = 706) 0.7 mg/dL 0.1-0.5 H ALKALINE PHOSPHATASE (BEAKER ) (test code = 346) 81 U/L 40-150 AST (SGOT) (BEAKER) (test co de = 353) 29 U/L 5-34 ALT (SGPT) (BEAKER) (test co de = 347) 12 U/L 6-55 LACTIC ACID, ARTERIAL, WHOLE [id number] 05:08:00* Test Item Value Reference Range Interpretation Comme nts LACTATE BLOOD ARTERIAL (2) (BEAKER) (test code = 2874) 0.9 mmol/L 0.5-2.2 PROTHROMBIN [id number] 05:03:00* Test Item Value Reference Range Interpretation Comme nts PROTIME (BEAKER) (test code = 759) 26.0 seconds 11.7-14.7 H INR (BEAKER) (test code = 370) 2.4 <=5.9 RECOMMENDED COUMADIN/WARFARIN INR THERAPY RANGESSTANDARD DOSE: 2.0 - 3.0 Includes: PROPHYLAXIS for venous thrombosis, systemic embolization; TREATMENT for venous thrombosis and/or pulmonary embolus.HIGH RISK: Target INR is 2.5-3.5 for patients with mechanical heart valves.CBC W/PLT COUNT & AUTO DIFFERENTIAL 2018-03-25 04:58:00* Test Item Value Reference Range Interpretation Comme nts WHITE BLOOD CELL COUNT (BEAK ER) (test code = 775) 11.2 K/ L 3.5-10.5 H RED BLOOD CELL COUNT (BEAKER ) (test code = 761) 3.05 M/ L 4.63-6.08 L HEMOGLOBIN (BEAKER) (test co de = 410) 9.3 GM/DL 13.7-17.5 L HEMATOCRIT (BEAKER) (test co de = 411) 28.4 % 40.1-51.0 L MEAN CORPUSCULAR VOLUME (PANCHO KER) (test code = 753) 93.1 fL 79.0-92.2 H MEAN CORPUSCULAR HEMOGLOBIN (BEAKER) (test code = 751) 30.5 pg 25.7-32.2 MEAN CORPUSCULAR HEMOGLOBIN CONC (BEAKER) (test code = 752) 32.7 GM/DL 32.3-36.5 RED CELL DISTRIBUTION WIDTH (BEAKER) (test code = 412) 16.9 % 11.6-14.4 H PLATELET COUNT (BEAKER) (david t code = 756) 274 K/CU MM 150-450 MEAN PLATELET VOLUME (BEAKER ) (test code = 754) 10.3 fL 9.4-12.4 NUCLEATED RED BLOOD CELLS (BEAKER) (test code = 413) 0 /100 WBC 0-0 NEUTROPHILS RELATIVE PERCENT (BEAKER) (test code = 429) 70 % LYMPHOCYTES RELATIVE PERCENT (BEAKER) (test code = 430) 23 % MONOCYTES RELATIVE PERCENT (BEAKER) (test code = 431) 6 % EOSINOPHILS RELATIVE PERCENT (BEAKER) (test code = 432) 0 % BASOPHILS RELATIVE PERCENT (BEAKER) (test code = 437) 0 % NEUTROPHILS ABSOLUTE COUNT (BEAKER) (test code = 670) 7.79 K/ L 1.78-5.38 H LYMPHOCYTES ABSOLUTE COUNT (BEAKER) (test code = 414) 2.60 K/ L 1.32-3.57 MONOCYTES ABSOLUTE COUNT (BE LILI) (test code = 415) 0.65 K/ L 0.30-0.82 EOSINOPHILS ABSOLUTE COUNT (BEAKER) (test code = 416) 0.02 K/ L 0.04-0.54 L BASOPHILS ABSOLUTE COUNT (BE LILI) (test code = 417) 0.01 K/ L 0.01-0.08 IMMATURE GRANULOCYTES-RELATI VE PERCENT (BEAKER) (test code = 2801) 1 % 0-1 PROTHROMBIN TIME/[id number] 00:39:00* Test Item Value Reference Range Interpretation Comme nts PROTIME (BEAKER) (test code = 759) 25.3 seconds 11.7-14.7 H INR (BEAKER) (test code = 370) 2.3 <=5.9 RECOMMENDED COUMADIN/WARFARIN INR THERAPY RANGESSTANDARD DOSE: 2.0 - 3.0 Includes: PROPHYLAXIS for venous thrombosis, systemic embolization; TREATMENT for venous thrombosis and/or pulmonary embolus.HIGH RISK: Target INR is 2.5-3.5 for patients with mechanical heart valves.HEMOGLOBIN AND [id number] 00:30:00* Test Item Value Reference Range Interpretation Comme nts HEMOGLOBIN (BEAKER) (test co de = 410) 8.1 GM/DL 13.7-17.5 L HEMATOCRIT (BEAKER) (test co de = 411) 25.0 % 40.1-51.0 L POCT-GLUCOSE [id number] 00:30:00* Test Item Value Reference Range Interpretation Comme nts POC-GLUCOSE METER (BEAKER) (test code = 1538) 129 mg/dL 70-110 H TESTED AT [place] [id number] [facility] [address] POCT-GLUCOSE [id number] 18:22:00* Test Item Value Reference Range Interpretation Comme nts POC-GLUCOSE METER (BEAKER) (test code = 1538) 102 mg/dL 70-110 TESTED AT [address] [address] PROTHROMBIN TIME/[id number] 17:09:00* Test Item Value Reference Range Interpretation Comme nts PROTIME (BEAKER) (test code = 759) 25.8 seconds 11.7-14.7 H INR (BEAKER) (test code = 370) 2.4 <=5.9 RECOMMENDED COUMADIN/WARFARIN INR THERAPY RANGESSTANDARD DOSE: 2.0 - 3.0 Includes: PROPHYLAXIS for venous thrombosis, systemic embolization; TREATMENT for venous thrombosis and/or pulmonary embolus.HIGH RISK: Target INR is 2.5-3.5 for patients with mechanical heart valves.HEMOGLOBIN AND [id number] 16:59:00* Test Item Value Reference Range Interpretation Comme nts HEMOGLOBIN (BEAKER) (test co de = 410) 8.4 GM/DL 13.7-17.5 L HEMATOCRIT (BEAKER) (test co de = 411) 25.8 % 40.1-51.0 L TISSUE [id number] 16:07:00Surgical Pathology Report Case: [id number] Authorizing Provider: Isrrael Lopez MD Collected: 03/19/2018 1626 Ordering Location: [facility] PERIOPERATIVE Received: 03/22/2018 0841 SERVICES Pathologist: Meek Johnson MD Specimens: A) - Gallbladder, GALLBLADDER MUCOSA B) - Gallbladder A. GALLBLADDER MUCOSA, EXCISION: - NECROTIC FIBROADIPOSE TISSUE WITH BILE FRAGMENTS - NO VIABLE MUCOSA AVAILABLEFOR EVALUATIONB. GALLBLADDER, CHOLECYSTECTOMY: - MARKED ACUTE NECROTIZING CHOLECYSTITIS WITH HEMORRHAGE AND REACTIVE CHANGES Signing Pathologist Direct Phone Line: [phone] signed by Meek Johnson MD on 03/24/2018 at 4:07 [id number] 2Acute cholecystitis A. Gallbladder mucosa. B. Gallbladder The case was received in two parts labeled with the patient's name, Seven Diaz, date of 1950, and accession number, [id number], which corresponds with accompanying paperwork.A. Received in formalin and labeled "A. Gallbladder mucosa" is a 10.5 x 3.0 x 0.3 cm thick piece of velvety, shiny, green, soft tissue mucosa. The specimen is serially sectioned, and benefits representative sections are submitted in cassettes A1 and A2.B. Received in formalin and labeled "B. Gallbladder" is a6.5 x 4.5 x 0.7 cm thick piece of green-yellow to green soft tissue. The specimen is serially sectioned, and benefits representative sections are submitted in cassettes B1 through B2. No common bile duct margin or duct can be identified. No calculi are identified. SC/ew Performed.FL, [id number] 15:39:00INTRA OP IMAGINGReason for exam:->ABNORMAL IMAGINGFINAL REPORT Nondiagnostic exam. Radiology provided fluoroscopy for ERCP perfor med by Dr. Aguilar. Neither radiologist presence nor interpretation were requested. Please refer to the operative report for further information. Fluoroscopy time was 93.1 cm. Total # of images: 3 Signed: JR Muñoz Robert MDReport Verified Date/Time: 03/24/2018 15:39:33 Reading Location: [facility] [id number] Consult Reading Room POCT-GLUCOSE [id number] 12:14:00* Test Item Value Reference Range Interpretation Comme nts POC-GLUCOSE METER ([employer]) (test code = 1538) 95 mg/dL 70-[address] [facility] [address] [place] [address] PROTHROMBIN TIME/[id number] 06:56:00* Test Item Value Reference Range Interpretation Comme nts PROTIME (BEAKER) (test code = 759) 20.1 seconds 11.7-14.7 H INR (BEAKER) (test code = 370) 1.7 <=5.9 RECOMMENDED COUMADIN/WARFARIN INR THERAPY RANGESSTANDARD DOSE: 2.0 - 3.0 Includes: PROPHYLAXIS for venous thrombosis, systemic embolization; TREATMENT for venous thrombosis and/or pulmonary embolus.HIGH RISK: Target INR is 2.5-3.5 for patients with mechanical heart valves.Atleast 30 min after Kcentra administrationHEMOGLOBIN AND [id number] 06:50:00* Test Item Value Reference Range Interpretation Comme nts HEMOGLOBIN (BEAKER) (test co de = 410) 8.9 GM/DL 13.7-17.5 L HEMATOCRIT (BEAKER) (test co de = 411) 26.9 % 40.1-51.0 L POCT-GLUCOSE [id number] 06:38:00* Test Item Value Reference Range Interpretation Comme nts POC-GLUCOSE METER (BEAKER) (test code = 1538) 104 mg/dL 70-110 TESTED AT [address] [address] POCT-GLUCOSE [id number] 05:02:00* Test Item Value Reference Range Interpretation Comme nts POC-GLUCOSE METER (BEAKER) (test code = 1538) 115 mg/dL 70-110 H TESTED AT [address] [address] [id number] 04:24:00* Test Item Value Reference Range Interpretation Comme nts PHOSPHORUS (BEAKER) (test co de = 604) 2.2 mg/dL 2.3-4.7 L [id number] 04:24:00* Test Item Value Reference Range Interpretation Comme nts MAGNESIUM (BEAKER) (test cod e = 627) 2.0 mg/dL 1.6-2.6 BASIC METABOLIC [id number] 04:24:00* Test Item Value Reference Range Interpretation Comme nts SODIUM (BEAKER) (test code = 381) 144 meq/L 136-145 POTASSIUM (BEAKER) (test code = 379) 3.8 meq/L 3.5-5.1 CHLORIDE (BEAKER) (test code = 382) 111 meq/L 98-107 H CO2 (BEAKER) (test code = 355) 27 meq/L 22-29 BLOOD UREA NITROGEN (BEAKER) (test code = 354) 17 mg/dL 7-21 CREATININE (BEAKER) (test code = 358) 0.63 mg/dL 0.57-1.25 GLUCOSE RANDOM (BEAKER) (test code = 652) 109 mg/dL 70-105 H CALCIUM (BEAKER) (test code = 697) 8.8 mg/dL 8.4-10.2 EGFR (BEAKER) (test code = 1092) 128 mL/min/1.73 sq m ESTIMATED GFR IS NOT ACCURATE CREATININE CLEARANCE IN PREDICTING GLOMERULAR FILTRATION RATE. ESTIMATED GFR IS NOT APPLICABLE FOR DIALYSIS PATIENTS. PT/[id number] 04:17:00* Test Item Value Reference Range Interpretation Comme nts PROTIME (BEAKER) (test code = 759) 25.0 seconds 11.7-14.7 H INR (BEAKER) (test code = 370) 2.3 <=5.9 PARTIAL THROMBOPLASTIN TIME (BEAKER) (test code = 760) 60.7 seconds 22.5-36.0 H RECOMMENDED COUMADIN/WARFARIN INR THERAPY RANGESSTANDARD DOSE: 2.0 - 3.0 Includes: PROPHYLAXIS for venous thrombosis, systemic embolization; TREATMENT for venous thrombosis and/or pulmonary embolus.HIGH RISK: Target INR is 2.5-3.5 for patients with mechanical heart valves.PROTHROMBIN TIME/[id number] 04:16:00* Test Item Value Reference Range Interpretation Comme nts PROTIME (BEAKER) (test code = 759) 25.0 seconds 11.7-14.7 H INR (BEAKER) (test code = 370) 2.3 <=5.9 RECOMMENDED COUMADIN/WARFARIN INR THERAPY RANGESSTANDARD DOSE: 2.0 - 3.0 Includes: PROPHYLAXIS for venous thrombosis, systemic embolization; TREATMENT for venous thrombosis and/or pulmonary embolus.HIGH RISK: Target INR is 2.5-3.5 for patients with mechanical heart valves.LACTIC ACID, ARTERIAL, WHOLE BLOOD 2018-03-24 04:12:00* Test Item Value Reference Range Interpretation Comme [facility] LACTATE BLOOD ARTERIAL (2) (BEAKER) (test code = 2874) 0.9 mmol/L 0.5-2.2 HEMOGLOBIN AND [id number] 04:01:00* Test Item Value Reference Range Interpretation Comme nts HEMOGLOBIN (BEAKER) (test co de = 410) 8.1 GM/DL 13.7-17.5 L HEMATOCRIT (BEAKER) (test co de = 411) 23.7 % 40.1-51.0 L CBC W/PLT COUNT & AUTO [id number] 04:01:00* Test Item Value Reference Range Interpretation Comme nts WHITE BLOOD CELL COUNT (BEAK ER) (test code = 775) 12.7 K/ L 3.5-10.5 H RED BLOOD CELL COUNT (BEAKER ) (test code = 761) 2.59 M/ L 4.63-6.08 L HEMOGLOBIN (BEAKER) (test co de = 410) 8.1 GM/DL 13.7-17.5 L HEMATOCRIT (BEAKER) (test co de = 411) 23.7 % 40.1-51.0 L MEAN CORPUSCULAR VOLUME (PANCHO KER) (test code = 753) 91.5 fL 79.0-92.2 MEAN CORPUSCULAR HEMOGLOBIN (BEAKER) (test code = 751) 31.3 pg 25.7-32.2 MEAN CORPUSCULAR HEMOGLOBIN CONC (BEAKER) (test code = 752) 34.2 GM/DL 32.3-36.5 RED CELL DISTRIBUTION WIDTH (BEAKER) (test code = 412) 18.0 % 11.6-14.4 H PLATELET COUNT (BEAKER) (david t code = 756) 304 K/CU MM 150-450 MEAN PLATELET VOLUME (BEAKER ) (test code = 754) 10.1 fL 9.4-12.4 NUCLEATED RED BLOOD CELLS (BEAKER) (test code = 413) 0 /100 WBC 0-0 NEUTROPHILS RELATIVE PERCENT (BEAKER) (test code = 429) 61 % LYMPHOCYTES RELATIVE PERCENT (BEAKER) (test code = 430) 28 % MONOCYTES RELATIVE PERCENT (BEAKER) (test code = 431) 7 % EOSINOPHILS RELATIVE PERCENT (BEAKER) (test code = 432) 2 % BASOPHILS RELATIVE PERCENT (BEAKER) (test code = 437) 0 % NEUTROPHILS ABSOLUTE COUNT (BEAKER) (test code = 670) 7.69 K/ L 1.78-5.38 H LYMPHOCYTES ABSOLUTE COUNT (BEAKER) (test code = 414) 3.56 K/ L 1.32-3.57 MONOCYTES ABSOLUTE COUNT (BE LILI) (test code = 415) 0.93 K/ L 0.30-0.82 H EOSINOPHILS ABSOLUTE COUNT (BEAKER) (test code = 416) 0.21 K/ L 0.04-0.54 BASOPHILS ABSOLUTE COUNT (BE LILI) (test code = 417) 0.02 K/ L 0.01-0.08 IMMATURE GRANULOCYTES-RELATI VE PERCENT (BEAKER) (test code = 2801) 2 % 0-1 H PROTHROMBIN TIME/[id number] 00:11:00* Test Item Value Reference Range Interpretation Comme nts PROTIME (BEAKER) (test code = 759) 22.8 seconds 11.7-14.7 H INR (BEAKER) (test code = 370) 2.0 <=5.9 RECOMMENDED COUMADIN/WARFARIN INR THERAPY RANGESSTANDARD DOSE: 2.0 - 3.0 Includes: PROPHYLAXIS for venous thrombosis, systemic embolization; TREATMENT for venous thrombosis and/or pulmonary embolus.HIGH RISK: Target INR is 2.5-3.5 for patients with mechanical heart valves.HEMOGLOBIN AND [id number] 00:00:00* Test Item Value Reference Range Interpretation Comme nts HEMOGLOBIN (BEAKER) (test co de = 410) 8.1 GM/DL 13.7-17.5 L HEMATOCRIT (BEAKER) (test co de = 411) 24.5 % 40.1-51.0 L PROTHROMBIN [id number] 22:34:00* Test Item Value Reference Range Interpretation Comme nts PROTIME (BEAKER) (test code = 759) 22.5 seconds 11.7-14.7 H INR (BEAKER) (test code = 370) 2.0 <=5.9 RECOMMENDED COUMADIN/WARFARIN INR THERAPY RANGESSTANDARD DOSE: 2.0 - 3.0 Includes: PROPHYLAXIS for venous thrombosis, systemic embolization; TREATMENT for venous thrombosis and/or pulmonary embolus.HIGH RISK: Target INR is 2.5-3.5 for patients with mechanical heart valves.LACTIC ACID, ARTERIAL, WHOLE BLOOD 2018-03-23 21:08:00* Test Item Value Reference Range Interpretation Comme nts LACTATE BLOOD ARTERIAL (2) (BEAKER) (test code = 2874) 0.9 mmol/L 0.5-2.2 Specimen slig htly hemolyzed PROTHROMBIN TIME/[id number] 18:04:00* Test Item Value Reference Range Interpretation Comme nts PROTIME (BEAKER) (test code = 759) 19.8 seconds 11.7-14.7 H INR (BEAKER) (test code = 370) 1.7 <=5.9 RECOMMENDED COUMADIN/WARFARIN INR THERAPY RANGESSTANDARD DOSE: 2.0 - 3.0 Includes: PROPHYLAXIS for venous thrombosis, systemic embolization; TREATMENT for venous thrombosis and/or pulmonary embolus.HIGH RISK: Target INR is 2.5-3.5 for patients with mechanical heart valves.HEMOGLOBIN AND [id number] 17:32:00* Test Item Value Reference Range Interpretation Comme nts HEMOGLOBIN (BEAKER) (test co de = 410) 7.2 GM/DL 13.7-17.5 L HEMATOCRIT (BEAKER) (test co de = 411) 21.7 % 40.1-51.0 L POCT-GLUCOSE [id number] 17:31:00* Test Item Value Reference Range Interpretation Comme nts POC-GLUCOSE METER (BEAKER) (test code = 1538) 130 mg/dL 70-[address] [facility] [address] [facility] [address] RAD, CHEST, 1 VIEW, NON [id number] 14:37:00Reason for exam:->evalute for pulmonary edemaShould this be performed at the bedside?->YesFINAL REPORT HISTORY : evaluate for pulmonary edema. Comparison: 03/23/2018 per formed earlier Comment: Single portable view of the chest was obtained. The cardiac silhouette sizeis enlarged. There are findings of pulmonary venous congestion. Interstitial prominence may represent interstitial edema. Pneumonitis cannot be excluded. There is a xgjdu-ygnnnqsw-krpbw right-sided pl eural effusion with some adjacent consolidation. The patient is status post sternotomy. Nasogastrictube is seen with the tip not included on the film. No lytic or blastic abnormalities are appreciated. No pneumothorax is visualized. Signed: Maia Sofia Verified Date/Time: 03/23/2018 14:37:03 Reading Location: [address] Transitional Reading Room RAD, ABDOMEN/KUB, 1 VIEW [id number] 13:18:00 Reason for exam:->ng tubeShould this be performed at the bedside?->YesFINAL REPORT History: Nasogastric tube COMPARISON: 03/23/2018 performed earlier DISCUSSION: A single frontal view of the abdomen was made for interpretation. A nasogastric tube is seen with the tip projecting over the expected location of the proximal-mid body of the stomach. Adrainage catheter is seen projecting over the right upper quadrant abdomen. There are some prominent loops of small bowel in the left abdomen. There is a small right-sided pleural effusion with some adjacent consolidation. Signed: Maia Sofia MDReport Verified Date/Time: 03/23/2018 13:18:37 Reading Location: [address] Transitional Reading Room Electronically signed by: MAIA SOFIA M.D. on 01:18 PMPOCT-GLUCOSE [id number] 12:57:00* Test Item Value Reference Range Interpretation Comme nts POC-GLUCOSE METER ([employer]) (test code = 1538) 177 mg/dL 70-[address] [facility] [address] [facility] [address] PROTHROMBIN TIME/[id number] 11:46:00* Test Item Value Reference Range Interpretation Comme nts PROTIME (BEAKER) (test code = 759) 34.3 seconds 11.7-14.7 H INR (BEAKER) (test code = 370) 3.4 <=5.9 RECOMMENDED COUMADIN/WARFARIN INR THERAPY RANGESSTANDARD DOSE: 2.0 - 3.0 Includes: PROPHYLAXIS for venous thrombosis, systemic embolization; TREATMENT for venous thrombosis and/or pulmonary embolus.HIGH RISK: Target INR is 2.5-3.5 for patients with mechanical heart valves.VANCOMYCIN LEVEL, [id number] 11:38:00* Test Item Value Reference Range Interpretation Comme nts VANCOMYCIN TROUGH (BEAKER) ( test code = 522) 15.5 ug/mL 10.0-20.0 Please draw vancomycin level at 1230. If level >20 mcg/mL, hold 1300 dose and notify MD.HEMOGLOBIN AND [id number] 11:20:00* Test Item Value Reference Range Interpretation Comme nts HEMOGLOBIN (BEAKER) (test co de = 410) 8.0 GM/DL 13.7-17.5 L HEMATOCRIT (BEAKER) (test co de = 411) 23.0 % 40.1-51.0 L URINE [id number] 10:24:00* Test Item Value Reference Range Interpretation Comme nts CULTURE (BEAKER) (test code = 1095) No growth BASIC METABOLIC [id number] 09:00:00* Test Item Value Reference Range Interpretation Comme nts SODIUM (BEAKER) (test code = 381) 143 meq/L 136-145 POTASSIUM (BEAKER) (test code = 379) 4.1 meq/L 3.5-5.1 Specimen sligh tly hemolyzed CHLORIDE (BEAKER) (test code = 382) 107 meq/L 98-107 CO2 (BEAKER) (test code = 355) 26 meq/L 22-29 BLOOD UREA NITROGEN (BEAKER) (test code = 354) 13 mg/dL 7-21 CREATININE (BEAKER) (test code = 358) 0.70 mg/dL 0.57-1.25 Specimen sligh tly hemolyzed GLUCOSE RANDOM (BEAKER) (test code = 652) 118 mg/dL 70-105 H CALCIUM (BEAKER) (test code = 697) 9.2 mg/dL 8.4-10.2 EGFR (BEAKER) (test code = 1092) 113 mL/min/1.73 sq m ESTIMATED GFR IS NOT ACCURATE CREATININE CLEARANCE IN PREDICTING GLOMERULAR FILTRATION RATE. ESTIMATED GFR IS NOT APPLICABLE FOR DIALYSIS PATIENTS. [id number] 07:03:00* Test Item Value Reference Range Interpretation Comme nts PHOSPHORUS (BEAKER) (test co de = 604) 3.1 mg/dL 2.3-4.7 [id number] 07:03:00* Test Item Value Reference Range Interpretation Comme nts MAGNESIUM (BEAKER) (test cod e = 627) 2.0 mg/dL 1.6-2.6 PROTHROMBIN [id number] 06:56:00* Test Item Value Reference Range Interpretation Comme nts PROTIME (BEAKER) (test code = 759) 31.2 seconds 11.7-14.7 H INR (BEAKER) (test code = 370) 3.0 <=5.9 RECOMMENDED COUMADIN/WARFARIN INR THERAPY RANGESSTANDARD DOSE: 2.0 - 3.0 Includes: PROPHYLAXIS for venous thrombosis, systemic embolization; TREATMENT for venous thrombosis and/or pulmonary embolus.HIGH RISK: Target INR is 2.5-3.5 for patients with mechanical heart valves.CBC W/PLT COUNT & AUTO DIFFERENTIAL 2018-03-23 06:40:00* Test Item Value Reference Range Interpretation Comme nts WHITE BLOOD CELL COUNT (BEAKER) (test code = 775) 15.3 K/ L 3.5-10.5 H RED BLOOD CELL COUNT (BEAKER) (test code = 761) 2.78 M/ L 4.63-6.08 L HEMOGLOBIN (BEAKER) (test code = 410) 8.6 GM/DL 13.7-17.5 L HEMATOCRIT (BEAKER) (test code = 411) 25.7 % 40.1-51.0 L MEAN CORPUSCULAR VOLUME (BEAKER) (test code = 753) 92.4 fL 79.0-92.2 H Discordant resul t compared to previous result; clinical correlation required. MEAN CORPUSCULAR HEMOGLOBIN (BEAKER) (test code = 751) 30.9 pg 25.7-32.2 MEAN CORPUSCULAR HEMOGLOBIN CONC (BEAKER) (test code = 752) 33.5 GM/DL 32.3-36.5 RED CELL DISTRIBUTION WIDTH (BEAKER) (test code = 412) 18.6 % 11.6-14.4 H PLATELET COUNT (BEAKER) (test code = 756) 342 K/CU MM 150-450 MEAN PLATELET VOLUME (BEAKER) (test code = 754) 9.8 fL 9.4-12.4 NUCLEATED RED BLOOD CELLS (BEAKER) (test code = 413) 0 /100 WBC 0-0 NEUTROPHILS RELATIVE PERCENT (BEAKER) (test code = 429) 70 % LYMPHOCYTES RELATIVE PERCENT (BEAKER) (test code = 430) 20 % MONOCYTES RELATIVE PERCENT (BEAKER) (test code = 431) 7 % EOSINOPHILS RELATIVE PERCENT (BEAKER) (test code = 432) 1 % BASOPHILS RELATIVE PERCENT (BEAKER) (test code = 437) 0 % NEUTROPHILS ABSOLUTE COUNT (BEAKER) (test code = 670) 10.67 K/ L 1.78-5.38 H LYMPHOCYTES ABSOLUTE COUNT (BEAKER) (test code = 414) 2.98 K/ L 1.32-3.57 MONOCYTES ABSOLUTE COUNT (BEAKER) (test code = 415) 1.05 K/ L 0.30-0.82 H EOSINOPHILS ABSOLUTE COUNT (BEAKER) (test code = 416) 0.11 K/ L 0.04-0.54 BASOPHILS ABSOLUTE COUNT (BEAKER) (test code = 417) 0.03 K/ L 0.01-0.08 IMMATURE GRANULOCYTES-RELATIVE PERCENT (BEAKER) (test code = 2801) 3 % 0-1 H POCT-GLUCOSE [id number] 06:09:00* Test Item Value Reference Range Interpretation Comme nts POC-GLUCOSE METER (BEAKER) (test code = 1538) 155 mg/dL 70-[address] [facility] [address] [facility] [address] RAD, ABDOMEN/KUB, 1 VIEW [id number] 02:10:00Reason for exam:->Diffuse abdominal painFINAL REPORT Examination: Supine abdomen CLINICAL INDICATION: Diffuse abdominal pain IMPRESSION: Compared with pleating machine operator image from abdominal CT performed 03/22/2018. A [...] decompression if clinically appropriate. Evaluation for free airbelow the diaphragm and air-fluid levels within the bowel is limited by supine patient positioning.Asymmetric increased attenuation is again noted projecting over the right side of the lower thorax and right upper abdomen, most conspicuous near the surgical drain compatible with the patient's known lower thoracic-abdominal wall hematoma, grossly similar to previous. If there is clinical concern for an expanding hematoma, consider follow-up CT imaging as today's examination is limited. Results discussed with the surgical instrument mechanic caring for the patient at 0200 hours. Signed: Tony Rushing Verified Date/Time: 03/23/2018 02:10:42 Reading Location: [address] Reading Room RAD, CHEST, 1 VIEW, NON [id number] 02:06:00Reason for exam:->Labored breathingShould this be performed at the bedside?->YesFINAL REPORT EXAMINATION: AP PORTABLE CHEST RADIOGRAPH CLINICAL INDICATION: Labored breathing IMPRESSION: Compared with 03/21/2018 The heart is enlarged but stable. Mediastinal contours are grossly unchanged. A right-sided pleural effusion is again suspected, grossly stable. Curvilinear patchy opacities persist in both lungs, most conspicuous in the perihilar regions and lungbases. A component of atelectasis is favored. Mild superimposed pulmonary edema should also be consi dered. An underlying pneumonia cannot be excluded. No evidence of new lung consolidation or pneumothorax. In summary, no significant interval change. Results discussed with the surgical instrument mechanic caring for the patient at the time of dictation. Signed: Tony Rushing Verified Date/Time: 03/23/2018 02:06:45 Reading Location: [address] Reading Room POCT-GLUCOSE METER 2018-03-23 01:49:00* Test Item Value Reference Range Interpretation Comme [facility] POC-GLUCOSE METER (BEAKER) (test code = 1538) 154 mg/dL 70-110 H TESTED AT [address] [address] PROTHROMBIN TIME/[id number] 22:17:00* Test Item Value Reference Range Interpretation Comme nts PROTIME (BEAKER) (test code = 759) 34.2 seconds 11.7-14.7 H INR (BEAKER) (test code = 370) 3.4 <=5.9 RECOMMENDED COUMADIN/WARFARIN INR THERAPY RANGESSTANDARD DOSE: 2.0 - 3.0 Includes: PROPHYLAXIS for venous thrombosis, systemic embolization; TREATMENT for venous thrombosis and/or pulmonary embolus.HIGH RISK: Target INR is 2.5-3.5 for patients with mechanical heart valves.HEMOGLOBIN AND [id number] 22:07:00* Test Item Value Reference Range Interpretation Comme nts HEMOGLOBIN (BEAKER) (test co de = 410) 6.9 GM/DL 13.7-17.5 L HEMATOCRIT (BEAKER) (test co de = 411) 21.2 % 40.1-51.[address], [id number] 14:34:00FINAL REPORT CT scan of the abdomen [...] atelectasis or consolidation. Valvular calcification is seen. Theliver, spleen, pancreas, and adrenal glands are unremarkable. A 2.7 x 2.4 cm cyst is seen in the left kidney. There is a low-attenuation right renal lesion. No dilated loops of bowel are seen suggest obstruction. Diverticulosis is noted without evidence of diverticulitis. Some thickening of the ascending colon is seen which may be secondary in nature. A normal appendix is seen. There is presacraledema. Some gas is noted in the bladder. The aorta is normal in caliber. Atherosclerosis is seen. Post cholecystectomy changes are seen with a drainage catheter in the gallbladder fossa and a 5.5 x 2.8 cm focus of fluid and gas in the gallbladder fossa. A large right-sided rectus hematoma is seen measuring 16.1 x 4.6 cm in maximal transverse diameter. It measures approximately 29.5 cm in length. Extensive stranding is seen throughout the subcutaneous tissues of the right abdomen extending to the back, either edema or tracking blood. Stranding is also seen in the region of the hepatic flexure which could represent edema or blood. Bone windows demonstrate degenerative changes. IMPRESSION:1. Large right-sided rectus hematoma. Fluid/fluid levels are seen and active bleeding cannot be excluded.2. Stranding, possibly blood or fluid tracking along the subcutaneous tissues of the right side of the abdomen towards the back.3. Moderate right-sided and small left-sided pleural effusion with adjacent atelectasis or consolidation.4. Postsurgical changes related to cholecystectomy with some fluidand gas in the gallbladder fossa which may be postsurgical in nature.5. Other findings as describedabove. A verbal report was given to the patient's nurse, Maryjane at the time of dictation. Critical findings were relayed to Dr. Lopez at the time of dictation. Signed: Leeann Mcnamara MDReport Verified Date/Time: 03/22/2018 14:34:23 Reading Location: [facility] [id number] Ortho Consult Reading Room Electro nically signed by: LEEANN MCNAMARA M.D. on 03/22/2018 02:34 PMPROTHROMBIN TIME/[id number] 08:57:00* Test Item Value Reference Range Interpretation Comme nts PROTIME (BEAKER) (test code = 759) 43.1 seconds 11.7-14.7 H INR (BEAKER) (test code = 370) 4.6 <=5.9 RECOMMENDED COUMADIN/WARFARIN INR THERAPY RANGESSTANDARD DOSE: 2.0 - 3.0 Includes: PROPHYLAXIS for venous thrombosis, systemic embolization; TREATMENT for venous thrombosis and/or pulmonary embolus.HIGH RISK: Target INR is 2.5-3.5 for patients with mechanical heart valves.CBC W/PLT COUNT & AUTO DIFFERENTIAL 2018-03-22 08:49:00* Test Item Value Reference Range Interpretation Comme nts WHITE BLOOD CELL COUNT (BEAK ER) (test code = 775) 15.3 K/ L 3.5-10.5 H RED BLOOD CELL COUNT (BEAKER ) (test code = 761) 1.70 M/ L 4.63-6.08 L HEMOGLOBIN (BEAKER) (test co de = 410) 5.3 GM/DL 13.7-17.5 LL HEMATOCRIT (BEAKER) (test co de = 411) 17.4 % 40.1-51.0 L MEAN CORPUSCULAR VOLUME (PANCHO KER) (test code = 753) 102.4 fL 79.0-92.2 H MEAN CORPUSCULAR HEMOGLOBIN (BEAKER) (test code = 751) 31.2 pg 25.7-32.2 MEAN CORPUSCULAR HEMOGLOBIN CONC (BEAKER) (test code = 752) 30.5 GM/DL 32.3-36.5 L RED CELL DISTRIBUTION WIDTH (BEAKER) (test code = 412) 17.6 % 11.6-14.4 H PLATELET COUNT (BEAKER) (david t code = 756) 342 K/CU MM 150-450 MEAN PLATELET VOLUME (BEAKER ) (test code = 754) 9.9 fL 9.4-12.4 NUCLEATED RED BLOOD CELLS (BEAKER) (test code = 413) 0 /100 WBC 0-0 NEUTROPHILS RELATIVE PERCENT (BEAKER) (test code = 429) 74 % LYMPHOCYTES RELATIVE PERCENT (BEAKER) (test code = 430) 18 % MONOCYTES RELATIVE PERCENT (BEAKER) (test code = 431) 4 % EOSINOPHILS RELATIVE PERCENT (BEAKER) (test code = 432) 1 % BASOPHILS RELATIVE PERCENT (BEAKER) (test code = 437) 0 % NEUTROPHILS ABSOLUTE COUNT (BEAKER) (test code = 670) 11.25 K/ L 1.78-5.38 H LYMPHOCYTES ABSOLUTE COUNT (BEAKER) (test code = 414) 2.76 K/ L 1.32-3.57 MONOCYTES ABSOLUTE COUNT (BE LILI) (test code = 415) 0.65 K/ L 0.30-0.82 EOSINOPHILS ABSOLUTE COUNT (BEAKER) (test code = 416) 0.15 K/ L 0.04-0.54 BASOPHILS ABSOLUTE COUNT (BE LILI) (test code = 417) 0.03 K/ L 0.01-0.08 IMMATURE GRANULOCYTES-RELATI VE PERCENT (BEAKER) (test code = 2801) 3 % 0-1 H POCT-GLUCOSE [id number] 07:56:00* Test Item Value Reference Range Interpretation Comme nts POC-GLUCOSE METER (BEAKER) (test code = 1538) 154 mg/dL 70-[address] [facility] [address] [facility] [address] [id number] 07:17:00* Test Item Value Reference Range Interpretation Comme nts PHOSPHORUS (BEAKER) (test co de = 604) 3.0 mg/dL 2.3-4.7 [id number] 07:17:00* Test Item Value Reference Range Interpretation Comme nts MAGNESIUM (BEAKER) (test cod e = 627) 2.2 mg/dL 1.6-2.6 PROTHROMBIN TIME/[id number] 06:54:00* Test Item Value Reference Range Interpretation Comme nts PROTIME (BEAKER) (test code = 759) 37.2 seconds 11.7-14.7 H INR (BEAKER) (test code = 370) 3.8 <=5.9 RECOMMENDED COUMADIN/WARFARIN INR THERAPY RANGESSTANDARD DOSE: 2.0 - 3.0 Includes: PROPHYLAXIS for venous thrombosis, systemic embolization; TREATMENT for venous thrombosis and/or pulmonary embolus.HIGH RISK: Target INR is 2.5-3.5 for patients with mechanical heart valves.POCT-GLUCOSE [id number] 05:17:00 * Test Item Value Reference Range Interpretation Comme [facility] POC-GLUCOSE METER (BEAKER) (test code = 1538) 91 mg/dL 70-110 Notified CARMEN WESTON/Emily MCGARRY AT [address] [address] POCT-GLUCOSE [id number] 23:24:00* Test Item Value Reference Range Interpretation Comme nts POC-GLUCOSE METER (BEAKER) (test code = 1538) 135 mg/dL 70-110 H TESTED AT [address] [address] POCT-GLUCOSE [id number] 18:33:00* Test Item Value Reference Range Interpretation Comme [facility] POC-GLUCOSE METER (BEAKER) (test code = 1538) 118 mg/dL 70-110 H Notified CARMEN MCGARRY AT [address] [address] POCT-LACTIC ACID, [id number] 14:32:00* Test Item Value Reference Range Interpretation Comme [facility] POC-LACTIC ACID, VENOUS (BEAKER) (test code = 2805) 0.9 mmol/L 0.9-1.7 TESTED AT [address] [address] PROTHROMBIN TIME/[id number] 14:17:00* Test Item Value Reference Range Interpretation Comme nts PROTIME (BEAKER) (test code = 759) 33.4 seconds 11.7-14.7 H INR (BEAKER) (test code = 370) 3.3 <=5.9 RECOMMENDED COUMADIN/WARFARIN INR THERAPY RANGESSTANDARD DOSE: 2.0 - 3.0 Includes: PROPHYLAXIS for venous thrombosis, systemic embolization; TREATMENT for venous thrombosis and/or pulmonary embolus.HIGH RISK: Target INR is 2.5-3.5 for patients with mechanical heart valves.[id number] 14:05:00* Test Item Value Reference Range Interpretation Comme nts HEMOGLOBIN (BEAKER) (test co de = 410) 7.9 GM/DL 13.7-17.5 L POCT-GLUCOSE [id number] 12:15:00* Test Item Value Reference Range Interpretation Comme nts POC-GLUCOSE METER (BEAKER) (test code = 1538) 104 mg/dL 70-110 Notified CARMEN WESTON/Emily MCGARRY AT [facility] [address] [place] [address] BLOOD GAS, [id number] 11:39:00* Test Item Value Reference Range Interpretation Comme nts PH ARTERIAL (BEAKER) (test c ode = 383) 7.48 7.35-7.45 H PCO2 ARTERIAL (BEAKER) (test code = 384) 37 mmHg 35-45 PO2 ARTERIAL (BEAKER) (test code = 385) 97 mmHg 80-90 H O2 SATURATION ARTERIAL (BEAK ER) (test code = 386) 97.5 % 96.0-97.0 H HCO3 ARTERIAL (BEAKER) (test code = 388) 26 mmol/L 21-29 BASE EXCESS ARTERIAL (BEAKER ) (test code = 387) 2.8 mmol/L -2.0-3.0 PATIENT TEMPERATURE (BEAKER) (test code = 1818) 38.0 C FIO2 (BEAKER) (test code = 1819) 32.0 % PROTHROMBIN [id number] 11:38:00* Test Item Value Reference Range Interpretation Comme nts PROTIME (BEAKER) (test code = 759) 34.8 seconds 11.7-14.7 H INR (BEAKER) (test code = 370) 3.5 <=5.9 RECOMMENDED COUMADIN/WARFARIN INR THERAPY RANGESSTANDARD DOSE: 2.0 - 3.0 Includes: PROPHYLAXIS for venous thrombosis, systemic embolization; TREATMENT for venous thrombosis and/or pulmonary embolus.HIGH RISK: Target INR is 2.5-3.5 for patients with mechanical heart valves.CBC W/PLT COUNT & AUTO DIFFERENTIAL 2018-03-21 10:03:00* Test Item Value Reference Range Interpretation Comme nts WHITE BLOOD CELL COUNT (BEAK ER) (test code = 775) 16.0 K/ L 3.5-10.5 H RED BLOOD CELL COUNT (BEAKER ) (test code = 761) 2.42 M/ L 4.63-6.08 L HEMOGLOBIN (BEAKER) (test co de = 410) 7.6 GM/DL 13.7-17.5 L HEMATOCRIT (BEAKER) (test co de = 411) 24.3 % 40.1-51.0 L MEAN CORPUSCULAR VOLUME (PANCHO KER) (test code = 753) 100.4 fL 79.0-92.2 H MEAN CORPUSCULAR HEMOGLOBIN (BEAKER) (test code = 751) 31.4 pg 25.7-32.2 MEAN CORPUSCULAR HEMOGLOBIN CONC (BEAKER) (test code = 752) 31.3 GM/DL 32.3-36.5 L RED CELL DISTRIBUTION WIDTH (BEAKER) (test code = 412) 17.5 % 11.6-14.4 H PLATELET COUNT (BEAKER) (david t code = 756) 341 K/CU MM 150-450 MEAN PLATELET VOLUME (BEAKER ) (test code = 754) 9.6 fL 9.4-12.4 NUCLEATED RED BLOOD CELLS (BEAKER) (test code = 413) 0 /100 WBC 0-0 (CELLAVISION MANUAL DIFF)2018-03-21 10:03:00* Test Item Value Reference Range Interpretation Comme nts NEUTROPHILS - REL (CELLAVISION)(BEAKER) (test code = 2816) 67 % LYMPHOCYTES - REL (CELLAVISION)(BEAKER) (test code = 2817) 10 % MONOCYTES - REL (CELLAVISION)(BEAKER) (test code = 2818) 2 % EOSINOPHILS - REL (CELLAVISION)(BEAKER) (test code = 2819) 1 % BANDS - REL (CELLAVISION)(BE LILI) (test code = 2826) 20 % 0-10 H NEUTROPHILS - ABS (CELLAVISION)(BEAKER) (test code = 2830) 10.72 K/ul 1.78-5.38 H LYMPHOCYTES - ABS (CELLAVISION)(BEAKER) (test code = 2831) 1.60 K/ul 1.32-3.57 MONOCYTES - ABS (CELLAVISION)(BEAKER) (test code = 2832) 0.32 K/uL 0.30-0.82 EOSINOPHILS - ABS (CELLAVISION)(BEAKER) (test code = 2834) 0.16 K/uL 0.04-0.54 BANDS - ABS (CELLAVISION)(BE LILI) (test code = 2840) 3.20 K/uL 0.00-0.80 H TOTAL COUNTED (BEAKER) (test code = 1351) 100 WBC MORPHOLOGY (BEAKER) (david t code = 487) Normal PLT MORPHOLOGY (BEAKER) (david t code = 486) Normal POLYCHROMATOPHILLIC RBCS(PANCHO KER) (test code = 478) 1+ few ANISOCYTOSIS (BEAKER) (test code = 961) 1+ few POIKILOCYTES (BEAKER) (test code = 966) 1+ few ARTIFACT (CELLAVISION)(BEAKE R) (test code = 3432) Present PLATELET CONCENTRATION (CELLAVISION)(BEAKER) (test code = 3438) Adequate Received comment: User comments: Slide comments:COMPREHENSIVE METABOLIC PANEL 2018-03-21 07:10:00* Test Item Value Reference Range Interpretation Comme nts TOTAL PROTEIN (BEAKER) (test code = 770) 5.7 gm/dL 6.0-8.3 L ALBUMIN (BEAKER) (test code = 1145) 2.7 g/dL 3.5-5.0 L ALKALINE PHOSPHATASE (BEAKER) (test code = 346) 110 U/L 40-150 BILIRUBIN TOTAL (BEAKER) (test code = 377) 1.0 mg/dL 0.2-1.2 SODIUM (BEAKER) (test code = 381) 137 meq/L 136-145 POTASSIUM (BEAKER) (test code = 379) 3.4 meq/L 3.5-5.1 L CHLORIDE (BEAKER) (test code = 382) 108 meq/L 98-107 H CO2 (BEAKER) (test code = 355) 22 meq/L 22-29 BLOOD UREA NITROGEN (BEAKER) (test code = 354) 10 mg/dL 7-21 CREATININE (BEAKER) (test code = 358) 0.61 mg/dL 0.57-1.25 GLUCOSE RANDOM (BEAKER) (test code = 652) 92 mg/dL 70-105 CALCIUM (BEAKER) (test code = 697) 8.9 mg/dL 8.4-10.2 AST (SGOT) (BEAKER) (test code = 353) 35 U/L 5-34 H ALT (SGPT) (BEAKER) (test code = 347) 24 U/L 6-55 EGFR (BEAKER) (test code = 1092) 133 mL/min/1.73 sq m ESTIMATED GFR IS NOT ACCURATE CREATININE CLEARANCE IN PREDICTING GLOMERULAR FILTRATION RATE. ESTIMATED GFR IS NOT APPLICABLE FOR DIALYSIS PATIENTS. RAD, ABDOMEN/KUB, 1 VIEW [id number] 06:59:00Reason for exam:->abd distension FINAL REPORT RAD, ABDOMEN/KUB, 1 VIEW AP INDICATION: [...] of obstruction. Right pleural effusion. Signed: Ilda Joyce Verified Date/Time: 03/21/2018 06:59:51 Reading Location: [address] Neuro Reading Room RAD, CHEST, 1 VIEW, NON DEPT 2018-03-21 06:53:00Reason for exam:->tachypneaShould this be performed at the bedside?->YesFINAL REPORT RAD, CHEST, 1 VIEW, NON DEPT INDICATION: tachypnea COMPARISON: March 19, 2018 FINDINGS: Portable frontal view of the chest. IMPRESSION: Support Lines: Stable. Lungs and pleura: Increased right pleural effusion, bilateral interstitial opacities and bibasilar atelectasis. No pneumothorax.Heart and mediastinum: Stable contours. Stable surgical changes.Additional findings: None. Signed: Ilda Joyce Verified Date/Time: 03/21/2018 06:53:46 Reading Location: [address] Neuro Reading Room Electronically signed by: ILDA JOYCE MD on 02/28 06:53 AMPOCT-GLUCOSE [id number] 05:17:00* Test Item Value Reference Range Interpretation Comme nts POC-GLUCOSE METER (AMADOR) (test code = 1538) 102 mg/dL 70-110 TESTED AT [address] [address] POCT-LACTIC ACID, [id number] 04:57:00* Test Item Value Reference Range Interpretation Comme nts POC-LACTIC ACID, VENOUS (BEAKER) (test code = 2805) 0.7 mmol/L 0.9-1.[address] [facility] [address] [facility] [address] [id number] 04:55:00* Test Item Value Reference Range Interpretation Comme nts PHOSPHORUS (BEAKER) (test co de = 604) 2.0 mg/dL 2.3-4.7 L [id number] 04:55:00* Test Item Value Reference Range Interpretation Comme nts MAGNESIUM (BEAKER) (test cod e = 627) 1.8 mg/dL 1.6-2.6 PROTHROMBIN TIME/[id number] 04:50:00* Test Item Value Reference Range Interpretation Comme nts PROTIME (BEAKER) (test code = 759) 35.1 seconds 11.7-14.7 H INR (BEAKER) (test code = 370) 3.5 <=5.9 RECOMMENDED COUMADIN/WARFARIN INR THERAPY RANGESSTANDARD DOSE: 2.0 - 3.0 Includes: PROPHYLAXIS for venous thrombosis, systemic embolization; TREATMENT for venous thrombosis and/or pulmonary embolus.HIGH RISK: Target INR is 2.5-3.5 for patients with mechanical heart valves.BLOOD GAS, [id number] 00:31:00* Test Item Value Reference Range Interpretation Comme nts PH VENOUS (BEAKER) (test cod e = 701) 7.48 7.32-7.42 H PCO2 VENOUS (BEAKER) (test c ode = 755) 36 mmHg 41-51 L PO2 VENOUS (BEAKER) (test co de = 702) 44 mmHg 25-40 H O2 SATURATION VENOUS (BEAKER ) (test code = 703) 83.8 % 40.0-70.0 H HCO3 VENOUS (BEAKER) (test c ode = 705) 26 mmol/L 21-29 BASE EXCESS VENOUS (BEAKER) (test code = 704) 2.8 mmol/L -2.0-3.0 PATIENT TEMPERATURE (BEAKER) (test code = 1818) 37.0 C FIO2 (BEAKER) (test code = 1819) 21.0 % BASIC METABOLIC [id number] 23:47:00* Test Item Value Reference Range Interpretation Comme nts SODIUM (BEAKER) (test code = 381) 138 meq/L 136-145 POTASSIUM (BEAKER) (test code = 379) 3.5 meq/L 3.5-5.1 CHLORIDE (BEAKER) (test code = 382) 108 meq/L 98-107 H CO2 (BEAKER) (test code = 355) 22 meq/L 22-29 BLOOD UREA NITROGEN (BEAKER) (test code = 354) 10 mg/dL 7-21 CREATININE (BEAKER) (test code = 358) 0.65 mg/dL 0.57-1.25 GLUCOSE RANDOM (BEAKER) (test code = 652) 105 mg/dL 70-105 CALCIUM (BEAKER) (test code = 697) 8.9 mg/dL 8.4-10.2 EGFR (BEAKER) (test code = 1092) 123 mL/min/1.73 sq m ESTIMATED GFR IS NOT ACCURATE CREATININE CLEARANCE IN PREDICTING GLOMERULAR FILTRATION RATE. ESTIMATED GFR IS NOT APPLICABLE FOR DIALYSIS PATIENTS. PROTHROMBIN [id number] 23:28:00* Test Item Value Reference Range Interpretation Comme nts PROTIME (BEAKER) (test code = 759) 40.3 seconds 11.7-14.7 H INR (BEAKER) (test code = 370) 4.2 <=5.9 RECOMMENDED COUMADIN/WARFARIN INR THERAPY RANGESSTANDARD DOSE: 2.0 - 3.0 Includes: PROPHYLAXIS for venous thrombosis, systemic embolization; TREATMENT for venous thrombosis and/or pulmonary embolus.HIGH RISK: Target INR is 2.5-3.5 for patients with mechanical heart valves.CBC W/PLT COUNT & AUTO DIFFERENTIAL 2018-03-20 23:26:00* Test Item Value Reference Range Interpretation Comme nts WHITE BLOOD CELL COUNT (BEAK ER) (test code = 775) 17.2 K/ L 3.5-10.5 H RED BLOOD CELL COUNT (BEAKER ) (test code = 761) 2.70 M/ L 4.63-6.08 L HEMOGLOBIN (BEAKER) (test co de = 410) 8.5 GM/DL 13.7-17.5 L HEMATOCRIT (BEAKER) (test co de = 411) 27.1 % 40.1-51.0 L MEAN CORPUSCULAR VOLUME (PANCHO KER) (test code = 753) 100.4 fL 79.0-92.2 H MEAN CORPUSCULAR HEMOGLOBIN (BEAKER) (test code = 751) 31.5 pg 25.7-32.2 MEAN CORPUSCULAR HEMOGLOBIN CONC (BEAKER) (test code = 752) 31.4 GM/DL 32.3-36.5 L RED CELL DISTRIBUTION WIDTH (BEAKER) (test code = 412) 17.5 % 11.6-14.4 H PLATELET COUNT (BEAKER) (david t code = 756) 362 K/CU MM 150-450 MEAN PLATELET VOLUME (BEAKER ) (test code = 754) 9.7 fL 9.4-12.4 NUCLEATED RED BLOOD CELLS (BEAKER) (test code = 413) 0 /100 WBC 0-0 NEUTROPHILS RELATIVE PERCENT (BEAKER) (test code = 429) 70 % LYMPHOCYTES RELATIVE PERCENT (BEAKER) (test code = 430) 22 % MONOCYTES RELATIVE PERCENT (BEAKER) (test code = 431) 4 % EOSINOPHILS RELATIVE PERCENT (BEAKER) (test code = 432) 1 % BASOPHILS RELATIVE PERCENT (BEAKER) (test code = 437) 0 % NEUTROPHILS ABSOLUTE COUNT (BEAKER) (test code = 670) 12.12 K/ L 1.78-5.38 H LYMPHOCYTES ABSOLUTE COUNT (BEAKER) (test code = 414) 3.77 K/ L 1.32-3.57 H MONOCYTES ABSOLUTE COUNT (BE LILI) (test code = 415) 0.74 K/ L 0.30-0.82 EOSINOPHILS ABSOLUTE COUNT (BEAKER) (test code = 416) 0.08 K/ L 0.04-0.54 BASOPHILS ABSOLUTE COUNT (BE LILI) (test code = 417) 0.03 K/ L 0.01-0.08 IMMATURE GRANULOCYTES-RELATI VE PERCENT (BEAKER) (test code = 2801) 3 % 0-1 H PROTHROMBIN TIME/[id number] 21:16:00* Test Item Value Reference Range Interpretation Comme nts PROTIME (BEAKER) (test code = 759) 37.3 seconds 11.7-14.7 H INR (BEAKER) (test code = 370) 3.8 <=5.9 RECOMMENDED COUMADIN/WARFARIN INR THERAPY RANGESSTANDARD DOSE: 2.0 - 3.0 Includes: PROPHYLAXIS for venous thrombosis, systemic embolization; TREATMENT for venous thrombosis and/or pulmonary embolus.HIGH RISK: Target INR is 2.5-3.5 for patients with mechanical heart valves.1 hour after transfusionPOCT-GLUCOSE [id number] 17:39:00* Test Item Value Reference Range Interpretation Comme nts POC-GLUCOSE METER (BEAKER) (test code = 1538) 150 mg/dL 70-110 H TESTED AT [address] [address] LACTIC ACID, VENOUS, WHOLE [id number] 13:15:00* Test Item Value Reference Range Interpretation Comme nts LACTATE BLOOD VENOUS (2) (BE LILI) (test code = 2872) 1.1 mmol/L 0.5-2.2 PROTHROMBIN [id number] 12:55:00* Test Item Value Reference Range Interpretation Comme nts PROTIME (BEAKER) (test code = 759) 34.7 seconds 11.7-14.7 H INR (BEAKER) (test code = 370) 3.5 <=5.9 RECOMMENDED COUMADIN/WARFARIN INR THERAPY RANGESSTANDARD DOSE: 2.0 - 3.0 Includes: PROPHYLAXIS for venous thrombosis, systemic embolization; TREATMENT for venous thrombosis and/or pulmonary embolus.HIGH RISK: Target INR is 2.5-3.5 for patients with mechanical heart valves.POCT-GLUCOSE [id number] 12:46:00 * Test Item Value Reference Range Interpretation Comme nts POC-GLUCOSE METER (BEAKER) (test code = 1538) 127 mg/dL 70-110 H TESTED AT [address] [address] LACTIC ACID, VENOUS, WHOLE [id number] 09:11:00* Test Item Value Reference Range Interpretation Comme nts LACTATE BLOOD VENOUS (2) (BE LILI) (test code = 2872) 1.2 mmol/L 0.5-2.2 POCT-GLUCOSE [id number] 08:34:00* Test Item Value Reference Range Interpretation Comme nts POC-GLUCOSE METER (BEAKER) (test code = 1538) 128 mg/dL 70-110 H TESTED AT [address] [address] CBC W/PLT COUNT & AUTO [id number] 06:51:00* Test Item Value Reference Range Interpretation Comme nts WHITE BLOOD CELL COUNT (BEAK ER) (test code = 775) 12.1 K/ L 3.5-10.5 H RED BLOOD CELL COUNT (BEAKER ) (test code = 761) 2.92 M/ L 4.63-6.08 L HEMOGLOBIN (BEAKER) (test co de = 410) 9.4 GM/DL 13.7-17.5 L HEMATOCRIT (BEAKER) (test co de = 411) 30.0 % 40.1-51.0 L MEAN CORPUSCULAR VOLUME (PANCHO KER) (test code = 753) 102.7 fL 79.0-92.2 H MEAN CORPUSCULAR HEMOGLOBIN (BEAKER) (test code = 751) 32.2 pg 25.7-32.2 MEAN CORPUSCULAR HEMOGLOBIN CONC (BEAKER) (test code = 752) 31.3 GM/DL 32.3-36.5 L RED CELL DISTRIBUTION WIDTH (BEAKER) (test code = 412) 17.3 % 11.6-14.4 H PLATELET COUNT (BEAKER) (david t code = 756) 308 K/CU MM 150-450 MEAN PLATELET VOLUME (BEAKER ) (test code = 754) 9.6 fL 9.4-12.4 NUCLEATED RED BLOOD CELLS (BEAKER) (test code = 413) 0 /100 WBC 0-0 (CELLAVISION MANUAL DIFF)2018-03-20 06:51:00* Test Item Value Reference Range Interpretation Comme nts NEUTROPHILS - REL (CELLAVISION)(BEAKER) (test code = 2816) 75 % LYMPHOCYTES - REL (CELLAVISION)(BEAKER) (test code = 2817) 10 % MONOCYTES - REL (CELLAVISION)(BEAKER) (test code = 2818) 3 % BANDS - REL (CELLAVISION)(BE LILI) (test code = 2826) 12 % 0-10 H NEUTROPHILS - ABS (CELLAVISION)(BEAKER) (test code = 2830) 9.08 K/ul 1.78-5.38 H LYMPHOCYTES - ABS (CELLAVISION)(BEAKER) (test code = 2831) 1.21 K/ul 1.32-3.57 L MONOCYTES - ABS (CELLAVISION)(BEAKER) (test code = 2832) 0.36 K/uL 0.30-0.82 BANDS - ABS (CELLAVISION)(BE LILI) (test code = 2840) 1.45 K/uL 0.00-0.80 H TOTAL COUNTED (BEAKER) (test code = 1351) 100 WBC MORPHOLOGY (BEAKER) (david t code = 487) Normal PLT MORPHOLOGY (BEAKER) (david t code = 486) Normal POLYCHROMATOPHILLIC RBCS(PANCHO KER) (test code = 478) 1+ few ARTIFACT (CELLAVISION)(BEAKE R) (test code = 3432) Present PLATELET CONCENTRATION (CELLAVISION)(BEAKER) (test code = 3438) Adequate Received comment: User comments: Slide comments:POCT-GLUCOSE [id number] 06:38:00* Test Item Value Reference Range Interpretation Comme nts POC-GLUCOSE METER (BEAKER) (test code = 1538) 110 mg/dL 70-[address] [facility] [address] [place] [address] [id number] 05:30:00* Test Item Value Reference Range Interpretation Comme nts PHOSPHORUS (BEAKER) (test co de = 604) 1.9 mg/dL 2.3-4.7 L [id number] 05:30:00* Test Item Value Reference Range Interpretation Comme nts MAGNESIUM (BEAKER) (test cod e = 627) 2.0 mg/dL 1.6-2.6 LACTIC ACID, VENOUS, WHOLE [id number] 04:19:00* Test Item Value Reference Range Interpretation Comme nts LACTATE BLOOD VENOUS (2) (BE LILI) (test code = 2872) 1.3 mmol/L 0.5-2.2 PROTHROMBIN TIME/[id number] 04:00:00* Test Item Value Reference Range Interpretation Comme nts PROTIME (BEAKER) (test code = 759) 33.3 seconds 11.7-14.7 H INR (BEAKER) (test code = 370) 3.3 <=5.9 RECOMMENDED COUMADIN/WARFARIN INR THERAPY RANGESSTANDARD DOSE: 2.0 - 3.0 Includes: PROPHYLAXIS for venous thrombosis, systemic embolization; TREATMENT for venous thrombosis and/or pulmonary embolus.HIGH RISK: Target INR is 2.5-3.5 for patients with mechanical heart valves.LACTIC ACID, VENOUS, WHOLE BLOOD 2018-03-20 02:24:00* Test Item Value Reference Range Interpretation Comme [facility] LACTATE BLOOD VENOUS (2) (BE LILI) (test code = 2872) 1.1 mmol/L 0.5-2.2 POCT-GLUCOSE [id number] 00:24:00* Test Item Value Reference Range Interpretation Comme [facility] POC-GLUCOSE METER (BEAKER) (test code = 1538) 88 mg/dL 70-[address] [facility] [address] [facility] [address] CBC W/PLT COUNT & AUTO [id number] 22:44:00* Test Item Value Reference Range Interpretation Comme nts WHITE BLOOD CELL COUNT (BEAK ER) (test code = 775) 11.7 K/ L 3.5-10.5 H RED BLOOD CELL COUNT (BEAKER ) (test code = 761) 2.86 M/ L 4.63-6.08 L HEMOGLOBIN (BEAKER) (test co de = 410) 9.0 GM/DL 13.7-17.5 L HEMATOCRIT (BEAKER) (test co de = 411) 29.1 % 40.1-51.0 L MEAN CORPUSCULAR VOLUME (PANCHO KER) (test code = 753) 101.7 fL 79.0-92.2 H MEAN CORPUSCULAR HEMOGLOBIN (BEAKER) (test code = 751) 31.5 pg 25.7-32.2 MEAN CORPUSCULAR HEMOGLOBIN CONC (BEAKER) (test code = 752) 30.9 GM/DL 32.3-36.5 L RED CELL DISTRIBUTION WIDTH (BEAKER) (test code = 412) 17.4 % 11.6-14.4 H PLATELET COUNT (BEAKER) (david t code = 756) 324 K/CU MM 150-450 MEAN PLATELET VOLUME (BEAKER ) (test code = 754) 9.4 fL 9.4-12.4 NUCLEATED RED BLOOD CELLS (BEAKER) (test code = 413) 0 /100 WBC 0-0 (CELLAVISION MANUAL DIFF)2018-03-19 22:44:00* Test Item Value Reference Range Interpretation Comme nts NEUTROPHILS - REL (CELLAVISION)(BEAKER) (test code = 2816) 72 % LYMPHOCYTES - REL (CELLAVISION)(BEAKER) (test code = 2817) 10 % MONOCYTES - REL (CELLAVISION)(BEAKER) (test code = 2818) 3 % METAMYELOCYTES - REL (CELLAVISION)(BEAKER) (test code = 2821) 1 % 0-0 H BANDS - REL (CELLAVISION)(BE LILI) (test code = 2826) 14 % 0-10 H NEUTROPHILS - ABS (CELLAVISION)(BEAKER) (test code = 2830) 8.42 K/ul 1.78-5.38 H LYMPHOCYTES - ABS (CELLAVISION)(BEAKER) (test code = 2831) 1.17 K/ul 1.32-3.57 L MONOCYTES - ABS (CELLAVISION)(BEAKER) (test code = 2832) 0.35 K/uL 0.30-0.82 METAMYELOCYTES - ABS (CELLAVISION)(BEAKER) (test code = 2836) 0.12 K/uL 0.00-0.00 H BANDS - ABS (CELLAVISION)(BE LILI) (test code = 2840) 1.64 K/uL 0.00-0.80 H TOTAL COUNTED (BEAKER) (test code = 1351) 100 WBC MORPHOLOGY (BEAKER) (david t code = 487) Normal GIANT PLATELETS (BEAKER) (te st code = 313) Present POIKILOCYTES (BEAKER) (test code = 966) 1+ few TARGET CELLS (BEAKER) (test code = 480) 1+ few ELLIPTOCYTES (BEAKER) (test code = 962) 1+ few ARTIFACT (CELLAVISION)(BEAKE R) (test code = 3432) Present PLATELET CONCENTRATION (CELLAVISION)(BEAKER) (test code = 3438) Adequate Received comment: User comments: Slide comments:[id number] 22:34:00* Test Item Value Reference Range Interpretation Comme nts PHOSPHORUS (BEAKER) (test co de = 604) 2.5 mg/dL 2.3-4.7 [id number] 22:34:00* Test Item Value Reference Range Interpretation Comme nts MAGNESIUM (BEAKER) (test cod e = 627) 2.1 mg/dL 1.6-2.6 COMPREHENSIVE METABOLIC [id number] 22:34:00* Test Item Value Reference Range Interpretation Comme nts TOTAL PROTEIN (BEAKER) (test code = 770) 6.2 gm/dL 6.0-8.3 ALBUMIN (BEAKER) (test code = 1145) 2.9 g/dL 3.5-5.0 L ALKALINE PHOSPHATASE (BEAKER) (test code = 346) 135 U/L 40-150 BILIRUBIN TOTAL (BEAKER) (test code = 377) 1.2 mg/dL 0.2-1.2 SODIUM (BEAKER) (test code = 381) 137 meq/L 136-145 POTASSIUM (BEAKER) (test code = 379) 3.6 meq/L 3.5-5.1 CHLORIDE (BEAKER) (test code = 382) 107 meq/L 98-107 CO2 (BEAKER) (test code = 355) 23 meq/L 22-29 BLOOD UREA NITROGEN (BEAKER) (test code = 354) 13 mg/dL 7-21 CREATININE (BEAKER) (test code = 358) 0.67 mg/dL 0.57-1.25 GLUCOSE RANDOM (BEAKER) (test code = 652) 95 mg/dL 70-105 CALCIUM (BEAKER) (test code = 697) 8.7 mg/dL 8.4-10.2 AST (SGOT) (BEAKER) (test code = 353) 50 U/L 5-34 H ALT (SGPT) (BEAKER) (test code = 347) 35 U/L 6-55 EGFR (BEAKER) (test code = 1092) 119 mL/min/1.73 sq m ESTIMATED GFR IS NOT ACCURATE CREATININE CLEARANCE IN PREDICTING GLOMERULAR FILTRATION RATE. ESTIMATED GFR IS NOT APPLICABLE FOR DIALYSIS PATIENTS. LACTIC ACID, VENOUS, WHOLE [id number] 22:22:00* Test Item Value Reference Range Interpretation Comme nts LACTATE BLOOD VENOUS (2) (BEAKER) (test code = 2872) 0.9 mmol/L 0.5-2.2 Specimen slightl y hemolyzed PT/[id number] 22:19:00* Test Item Value Reference Range Interpretation Comme nts PROTIME (BEAKER) (test code = 759) 27.3 seconds 11.7-14.7 H INR (BEAKER) (test code = 370) 2.5 <=5.9 PARTIAL THROMBOPLASTIN TIME (BEAKER) (test code = 760) 51.9 seconds 22.5-36.0 H RECOMMENDED COUMADIN/WARFARIN INR THERAPY RANGESSTANDARD DOSE: 2.0 - 3.0 Includes: PROPHYLAXIS for venous thrombosis, systemic embolization; TREATMENT for venous thrombosis and/or pulmonary embolus.HIGH RISK: Target INR is 2.5-3.5 for patients with mechanical heart valves.RAD, CHEST, 1 VIEW, NON [id number] 22:15:00Reason for exam:->postopShould this be performed at the bedside?->Yes FINAL REPORT History: Postoperative evaluation. FINDINGS: Compared with February 11, 2018, the lung findings have decreased. Mild increased pulmonary airspace opacity is present,possibly representing edema or pneumonia. Small bilateral pleural effusions are also suspected. No p neumothorax. The heart and mediastinum are stable. As before, the heart is enlarged. Multiple sternal wires are present, consistent with median sternotomy. Bones are unremarkable. IMPRESSION: 1. Decreased lung volumes and mild increase in bilateral pulmonary airspace opacities since the previous study, possibly representing edema or pneumonia. 2. Cardiomegaly, unchanged. Signed: Ginna Galdamez Verified Date/Time: 03/19/2018 22:15:19 Reading Location: [facility] Diagnostic Imaging Reading Room- [place] [id number] PROTHROMBIN TIME/[id number] 16:40:00* Test Item Value Reference Range Interpretation Comme nts PROTIME (BEAKER) (test code = 759) 25.9 seconds 11.7-14.7 H INR (BEAKER) (test code = 370) 2.4 <=5.9 RECOMMENDED COUMADIN/WARFARIN INR THERAPY RANGESSTANDARD DOSE: 2.0 - 3.0 Includes: PROPHYLAXIS for venous thrombosis, systemic embolization; TREATMENT for venous thrombosis and/or pulmonary embolus.HIGH RISK: Target INR is 2.5-3.5 for patients with mechanical heart valves.CALCIUM, [id number] 16:01:00* Test Item Value Reference Range Interpretation Comme nts CALCIUM IONIZED (BEAKER) (te st code = 698) 1.09 mmol/L 1.12-1.27 L PH, BLOOD (BEAKER) (test cod e = 1810) 7.44 HEMATOCRIT-STAT [id number] 16:01:00* Test Item Value Reference Range Interpretation Comme nts HEMATOCRIT (BEAKER) (test code = 411) 29.0 % 40.0-50.0 L HEMOGLOBIN-STAT [id number] 16:01:00* Test Item Value Reference Range Interpretation Comme nts HEMOGLOBIN (BEAKER) (test co de = 410) 9.7 g/dL 13.0-16.8 L POTASSIUM-STAT [id number] 16:01:00* Test Item Value Reference Range Interpretation Comme nts POTASSIUM (BEAKER) (test cod e = 379) 3.2 meq/L 3.6-5.5 L HGB/HCT (H&H) - STAT [id number] 16:01:00* Test Item Value Reference Range Interpretation Comme nts HEMOGLOBIN (BEAKER) (test co de = 410) 9.7 GM/DL 13.0-16.8 L HEMATOCRIT (BEAKER) (test co de = 411) 29.0 % 40.0-50.0 L BLOOD GAS, [id number] 16:00:00* Test Item Value Reference Range Interpretation Comme nts PH ARTERIAL (BEAKER) (test c ode = 383) 7.44 7.35-7.45 PCO2 ARTERIAL (BEAKER) (test code = 384) 36 mmHg 35-45 PO2 ARTERIAL (BEAKER) (test code = 385) 81 mmHg 80-90 O2 SATURATION ARTERIAL (BEAK ER) (test code = 386) 96.4 % 96.0-97.0 HCO3 ARTERIAL (BEAKER) (test code = 388) 24 mmol/L 21-29 BASE EXCESS ARTERIAL (BEAKER ) (test code = 387) 0.2 mmol/L -2.0-3.0 PATIENT TEMPERATURE (BEAKER) (test code = 1818) 37.0 C GLUCOSE-STAT [id number] 16:00:00* Test Item Value Reference Range Interpretation Comme nts GLUCOSE RANDOM (BEAKER) (david t code = 652) 96 mg/dL 70-110 SODIUM NA-STAT [id number] 16:00:00* Test Item Value Reference Range Interpretation Comme nts SODIUM (BEAKER) (test code = 381) 138 meq/L 135-148 PROTHROMBIN TIME/[id number] 10:50:00* Test Item Value Reference Range Interpretation Comme nts PROTIME (BEAKER) (test code = 759) 29.5 seconds 11.7-14.7 H INR (BEAKER) (test code = 370) 2.8 <=5.9 RECOMMENDED COUMADIN/WARFARIN INR THERAPY RANGESSTANDARD DOSE: 2.0 - 3.0 Includes: PROPHYLAXIS for venous thrombosis, systemic embolization; TREATMENT for venous thrombosis and/or pulmonary embolus.HIGH RISK: Target INR is 2.5-3.5 for patients with mechanical heart valves.CT, BRAIN, WITHOUT [id number] 10:45:00FINAL REPORT CT, BRAIN, WITHOUT CONTRAST INDICATION: Intracranial hemorrhageINR 12 recently, new onset neuro symptoms TECHNIQUE: Noncontrast axial imaging was obtained from the vertex to the skull base. Axial images were reconstructed using a bone algorithm. DOSE REDUCTION: Dose modulation, iterative reconstruction, and/or weight-based adjustment of the mA/kV was utilized to reduce the radiation dose to as low as reasonably achievable. COMPARISON: February 13, 2018 FINDINGS: Cerebral parenchyma: Diffuse parenchymal volume loss. No discernible infarct or parenchymal hemorrh age.Midline structures: Normally positioned.Cerebellum and brainstem: Commensurate volume loss.Ventricles: Normal volume.Extra-axial spaces: Unremarkable. Calvarium and skull base: Intact.Paranasal sinuses and mastoid air cells: Visible chambers are clear.Orbital contents: Included portions unremark able. Additional findings: None. IMPRESSION: Chronic involutional changes without acute intracranial abnormality. If there is persistent clinical concern for intracranial pathology, MR examination isrecommended for further characterization. Signed: JR Muñoz Robert MDReport Verified Date/Time: 03/19/2018 10:45:14 Reading Location: [facility] Neuro Reading Room HROMBIN TIME/[id number] 06:27:00* Test Item Value Reference Range Interpretation Comme nts PROTIME (BEAKER) (test code = 759) 34.3 seconds 11.7-14.7 H INR (BEAKER) (test code = 370) 3.4 <=5.9 RECOMMENDED COUMADIN/WARFARIN INR THERAPY RANGESSTANDARD DOSE: 2.0 - 3.0 Includes: PROPHYLAXIS for venous thrombosis, systemic embolization; TREATMENT for venous thrombosis and/or pulmonary embolus.HIGH RISK: Target INR is 2.5-3.5 for patients with mechanical heart valves.PT/[id number] 01:58:00* Test Item Value Reference Range Interpretation Comme nts PROTIME (BEAKER) (test code = 759) 33.1 seconds 11.7-14.7 H INR (BEAKER) (test code = 370) 3.2 <=5.9 PARTIAL THROMBOPLASTIN TIME (BEAKER) (test code = 760) 86.7 seconds 22.5-36.0 H RECOMMENDED COUMADIN/WARFARIN INR THERAPY RANGESSTANDARD DOSE: 2.0 - 3.0 Includes: PROPHYLAXIS for venous thrombosis, systemic embolization; TREATMENT for venous thrombosis and/or pulmonary embolus.HIGH RISK: Target INR is 2.5-3.5 for patients with mechanical heart valves.PROTHROMBIN TIME/[id number] 01:56:00* Test Item Value Reference Range Interpretation Comme nts PROTIME (BEAKER) (test code = 759) 33.1 seconds 11.7-14.7 H INR (BEAKER) (test code = 370) 3.2 <=5.9 RECOMMENDED COUMADIN/WARFARIN INR THERAPY RANGESSTANDARD DOSE: 2.0 - 3.0 Includes: PROPHYLAXIS for venous thrombosis, systemic embolization; TREATMENT for venous thrombosis and/or pulmonary embolus.HIGH RISK: Target INR is 2.5-3.5 for patients with mechanical heart valves.[id number] 01:50:00* Test Item Value Reference Range Interpretation Comme nts PHOSPHORUS (BEAKER) (test co de = 604) 1.9 mg/dL 2.3-4.7 L [id number] 01:50:00* Test Item Value Reference Range Interpretation Comme nts MAGNESIUM (BEAKER) (test cod e = 627) 2.3 mg/dL 1.6-2.6 BASIC METABOLIC [id number] 01:50:00* Test Item Value Reference Range Interpretation Comme nts SODIUM (BEAKER) (test code = 381) 136 meq/L 136-145 POTASSIUM (BEAKER) (test code = 379) 3.6 meq/L 3.5-5.1 CHLORIDE (BEAKER) (test code = 382) 106 meq/L 98-107 CO2 (BEAKER) (test code = 355) 23 meq/L 22-29 BLOOD UREA NITROGEN (BEAKER) (test code = 354) 19 mg/dL 7-21 CREATININE (BEAKER) (test code = 358) 0.63 mg/dL 0.57-1.25 GLUCOSE RANDOM (BEAKER) (test code = 652) 120 mg/dL 70-105 H CALCIUM (BEAKER) (test code = 697) 9.5 mg/dL 8.4-10.2 EGFR (BEAKER) (test code = 1092) 128 mL/min/1.73 sq m ESTIMATED GFR IS NOT ACCURATE CREATININE CLEARANCE IN PREDICTING GLOMERULAR FILTRATION RATE. ESTIMATED GFR IS NOT APPLICABLE FOR DIALYSIS PATIENTS. HEPATIC FUNCTION [id number] 01:50:00* Test Item Value Reference Range Interpretation Comme nts TOTAL PROTEIN (BEAKER) (test code = 770) 6.6 gm/dL 6.0-8.3 ALBUMIN (BEAKER) (test code = 1145) 2.9 g/dL 3.5-5.0 L BILIRUBIN TOTAL (BEAKER) (te st code = 377) 1.4 mg/dL 0.2-1.2 H BILIRUBIN DIRECT (BEAKER) (t est code = 706) 0.9 mg/dL 0.1-0.5 H ALKALINE PHOSPHATASE (BEAKER ) (test code = 346) 167 U/L 40-150 H AST (SGOT) (BEAKER) (test co de = 353) 43 U/L 5-34 H ALT (SGPT) (BEAKER) (test co de = 347) 44 U/L 6-55 CBC (HEMOGRAM ONLY)2018-03-19 01:35:00* Test Item Value Reference Range Interpretation Comme nts WHITE BLOOD CELL COUNT (BEAK ER) (test code = 775) 11.7 K/ L 3.5-10.5 H RED BLOOD CELL COUNT (BEAKER ) (test code = 761) 3.20 M/ L 4.63-6.08 L HEMOGLOBIN (BEAKER) (test co de = 410) 9.9 GM/DL 13.7-17.5 L HEMATOCRIT (BEAKER) (test co de = 411) 32.2 % 40.1-51.0 L MEAN CORPUSCULAR VOLUME (PANCHO KER) (test code = 753) 100.6 fL 79.0-92.2 H MEAN CORPUSCULAR HEMOGLOBIN (BEAKER) (test code = 751) 30.9 pg 25.7-32.2 MEAN CORPUSCULAR HEMOGLOBIN CONC (BEAKER) (test code = 752) 30.7 GM/DL 32.3-36.5 L RED CELL DISTRIBUTION WIDTH (BEAKER) (test code = 412) 17.0 % 11.6-14.4 H PLATELET COUNT (BEAKER) (david t code = 756) 294 K/CU MM 150-450 MEAN PLATELET VOLUME (BEAKER ) (test code = 754) 9.3 fL 9.4-12.4 L NUCLEATED RED BLOOD CELLS (BEAKER) (test code = 413) 0 /100 WBC 0-0 PROTHROMBIN [id number] 22:29:00* Test Item Value Reference Range Interpretation Comme nts PROTIME (BEAKER) (test code = 759) 37.7 seconds 11.7-14.7 H INR (BEAKER) (test code = 370) 3.8 <=5.9 RECOMMENDED COUMADIN/WARFARIN INR THERAPY RANGESSTANDARD DOSE: 2.0 - 3.0 Includes: PROPHYLAXIS for venous thrombosis, systemic embolization; TREATMENT for venous thrombosis and/or pulmonary embolus.HIGH RISK: Target INR is 2.5-3.5 for patients with mechanical heart valves.[id number] 08:02:00* Test Item Value Reference Range Interpretation Comme nts TRANSFERRIN (BEAKER) (test c ode = 541) 132 mg/dL 174-382 L [id number] 08:02:00* Test Item Value Reference Range Interpretation Comme nts PREALBUMIN (BEAKER) (test code = 586) 7 mg/dL 14-45 L [id number] 07:23:00* Test Item Value Reference Range Interpretation Comme nts MAGNESIUM (BEAKER) (test cod e = 627) 2.4 mg/dL 1.6-2.6 BASIC METABOLIC [id number] 07:23:00* Test Item Value Reference Range Interpretation Comme nts SODIUM (BEAKER) (test code = 381) 132 meq/L 136-145 L POTASSIUM (BEAKER) (test code = 379) 3.3 meq/L 3.5-5.1 L CHLORIDE (BEAKER) (test code = 382) 100 meq/L 98-107 CO2 (BEAKER) (test code = 355) 26 meq/L 22-29 BLOOD UREA NITROGEN (BEAKER) (test code = 354) 22 mg/dL 7-21 H CREATININE (BEAKER) (test code = 358) 0.75 mg/dL 0.57-1.25 GLUCOSE RANDOM (BEAKER) (test code = 652) 99 mg/dL 70-105 CALCIUM (BEAKER) (test code = 697) 9.3 mg/dL 8.4-10.2 EGFR (BEAKER) (test code = 1092) 105 mL/min/1.73 sq m ESTIMATED GFR IS NOT ACCURATE CREATININE CLEARANCE IN PREDICTING GLOMERULAR FILTRATION RATE. ESTIMATED GFR IS NOT APPLICABLE FOR DIALYSIS PATIENTS. HEPATIC FUNCTION [id number] 07:23:00* Test Item Value Reference Range Interpretation Comme nts TOTAL PROTEIN (BEAKER) (test code = 770) 6.6 gm/dL 6.0-8.3 ALBUMIN (BEAKER) (test code = 1145) 2.9 g/dL 3.5-5.0 L BILIRUBIN TOTAL (BEAKER) (te st code = 377) 1.6 mg/dL 0.2-1.2 H BILIRUBIN DIRECT (BEAKER) (t est code = 706) 0.9 mg/dL 0.1-0.5 H ALKALINE PHOSPHATASE (BEAKER ) (test code = 346) 169 U/L 40-150 H AST (SGOT) (BEAKER) (test co de = 353) 36 U/L 5-34 H ALT (SGPT) (BEAKER) (test co de = 347) 48 U/L 6-55 [id number] 07:22:00* Test Item Value Reference Range Interpretation Comme nts PHOSPHORUS (BEAKER) (test co de = 604) 2.3 mg/dL 2.3-4.7 PT/[id number] 07:02:00* Test Item Value Reference Range Interpretation Comme nts PROTIME (BEAKER) (test code = 759) 37.0 seconds 11.7-14.7 H INR (BEAKER) (test code = 370) 3.7 <=5.9 PARTIAL THROMBOPLASTIN TIME (BEAKER) (test code = 760) 129.1 seconds 22.5-36.0 H RECOMMENDED COUMADIN/WARFARIN INR THERAPY RANGESSTANDARD DOSE: 2.0 - 3.0 Includes: PROPHYLAXIS for venous thrombosis, systemic embolization; TREATMENT for venous thrombosis and/or pulmonary embolus.HIGH RISK: Target INR is 2.5-3.5 for patients with mechanical heart valves.PROTHROMBIN TIME/[id number] 06:59:00* Test Item Value Reference Range Interpretation Comme nts PROTIME (BEAKER) (test code = 759) 37.0 seconds 11.7-14.7 H INR (BEAKER) (test code = 370) 3.7 <=5.9 RECOMMENDED COUMADIN/WARFARIN INR THERAPY RANGESSTANDARD DOSE: 2.0 - 3.0 Includes: PROPHYLAXIS for venous thrombosis, systemic embolization; TREATMENT for venous thrombosis and/or pulmonary embolus.HIGH RISK: Target INR is 2.5-3.5 for patients with mechanical heart valves.CBC (HEMOGRAM ONLY)2018-03-18 06:49:00 * Test Item Value Reference Range Interpretation Comme nts WHITE BLOOD CELL COUNT (BEAK ER) (test code = 775) 9.5 K/ L 3.5-10.5 RED BLOOD CELL COUNT (BEAKER ) (test code = 761) 3.22 M/ L 4.63-6.08 L HEMOGLOBIN (BEAKER) (test co de = 410) 10.3 GM/DL 13.7-17.5 L HEMATOCRIT (BEAKER) (test co de = 411) 31.4 % 40.1-51.0 L MEAN CORPUSCULAR VOLUME (PANCHO KER) (test code = 753) 97.5 fL 79.0-92.2 H MEAN CORPUSCULAR HEMOGLOBIN (BEAKER) (test code = 751) 32.0 pg 25.7-32.2 MEAN CORPUSCULAR HEMOGLOBIN CONC (BEAKER) (test code = 752) 32.8 GM/DL 32.3-36.5 RED CELL DISTRIBUTION WIDTH (BEAKER) (test code = 412) 16.6 % 11.6-14.4 H PLATELET COUNT (BEAKER) (david t code = 756) 274 K/CU MM 150-450 MEAN PLATELET VOLUME (BEAKER ) (test code = 754) 9.8 fL 9.4-12.4 NUCLEATED RED BLOOD CELLS (BEAKER) (test code = 413) 0 /100 WBC 0-0 U/S, ABDOMINAL, [id number] 01:42:00Right upper quadrant, Assess Liver with ultrasoundAbdomen limited area? Add comment if clarification is needed.- >Right upper quadrantRight upper quadrant, Liver ultrasoundReason for exam:->Right upper quadrant pain, elevated INR, distended gallbladder on CTFINAL REPORT INDICATION: Right upper quadrant pain, elevated INR, distended gallbladder on CT COMPARISON: None TECHNIQUE: Real-time transabdominal sol scale and color Doppler ultrasound of the abdominal right upper quadrant. FINDINGS:Liver: Size: 11cm. Echogenicity: Normal. Masses/lesions: None. Surface Nodularity: Minimal surface nodularity. Intrahepatic bile ducts: Normal.Common bile duct: 0.51cm. MPV: 0.95cm. Gallbladder: Stones: None. Sludge: Present. Wall thickness: 1.4 cm. The gallbladder is markedly distended Pericholecystic fluid: Present. Sonographic Dsouza's sign: Present. Pancreas: Head and uncinate process: Not well evaluated due to bowel gas. Body and tail: Not well evaluated. Right kidney: Size: 10.1 cm. Parenchyma: Normal echogenicity. No cysts. No sto asha. Hydronephrosis: None. Ascites: None. Regional Vasculature: The visible abdominal aorta, IVC and hepatic veins are patent. Additional Findings: None. IMPRESSION: Thickened gallbladder wall with pericholecystic fluid and positive sonographic Dsouza's. Gallbladder is distended with sludge. Findings are concerning for acute cholecystitis. findings were relayed to Dr. Espinosa at 1:40 AM. Signed: Ilda Joyce Verified Date/Time: 03/18/2018 01:42:08 Reading Location: [address] Neuro Reading Room URINALYSIS W/ MICROSCOPIC 2018-03-17 23:46:00* Test Item Value Reference Range Interpretation Comme nts COLOR (BEAKER) (test code = 470) Yellow CLARITY (BEAKER) (test code = 469) Clear SPECIFIC GRAVITY UA (BEAKER) (test code = 468) 1.038 1.001-1.035 H PH UA (BEAKER) (test code = 467) 6.0 5.0-8.0 PROTEIN UA (BEAKER) (test co de = 464) 100 mg/dL Negative A GLUCOSE UA (BEAKER) (test co de = 365) Negative Negative KETONES UA (BEAKER) (test co de = 371) Trace Negative A BILIRUBIN UA (BEAKER) (test code = 462) Negative Negative BLOOD UA (BEAKER) (test code = 461) Trace Negative A NITRITE UA (BEAKER) (test co de = 465) Negative Negative LEUKOCYTE ESTERASE UA (BEAKE R) (test code = 466) Negative Negative UROBILINOGEN UA (BEAKER) (te st code = 463) 0.2 mg/dL 0.2-1.0 RBC UA (BEAKER) (test code = 519) 1 /HPF WBC UA (BEAKER) (test code = 520) 1 /HPF AMORPHOUS CRYSTALS (BEAKER) (test code = 1584) Occasional SOURCE(BEAKER) (test code = 2795) Urine, Voided [id number] 23:39:00* Test Item Value Reference Range Interpretation Comme nts MAGNESIUM (BEAKER) (test code = 627) 2.3 mg/dL 1.6-2.6 Specimen sligh tly hemolyzed [id number] 23:39:00* Test Item Value Reference Range Interpretation Comme nts PHOSPHORUS (BEAKER) (test code = 604) 2.2 mg/dL 2.3-4.7 L Specimen sligh tly hemolyzed BASIC METABOLIC [id number] 23:39:00* Test Item Value Reference Range Interpretation Comme nts SODIUM (BEAKER) (test code = 381) 127 meq/L 136-145 L POTASSIUM (BEAKER) (test code = 379) 4.1 meq/L 3.5-5.1 Specimen sligh tly hemolyzed CHLORIDE (BEAKER) (test code = 382) 96 meq/L 98-107 L CO2 (BEAKER) (test code = 355) 24 meq/L 22-29 BLOOD UREA NITROGEN (BEAKER) (test code = 354) 35 mg/dL 7-21 H CREATININE (BEAKER) (test code = 358) 0.86 mg/dL 0.57-1.25 Specimen sligh tly hemolyzed GLUCOSE RANDOM (BEAKER) (test code = 652) 90 mg/dL 70-105 CALCIUM (BEAKER) (test code = 697) 9.8 mg/dL 8.4-10.2 EGFR (BEAKER) (test code = 1092) 89 mL/min/1.73 sq m ESTIMATED GFR IS NOT ACCURATE CREATININE CLEARANCE IN PREDICTING GLOMERULAR FILTRATION RATE. ESTIMATED GFR IS NOT APPLICABLE FOR DIALYSIS PATIENTS. HEPATIC FUNCTION [id number] 23:39:00* Test Item Value Reference Range Interpretation Comme nts TOTAL PROTEIN (BEAKER) (test code = 770) 7.3 gm/dL 6.0-8.3 Specimen sligh tly hemolyzed ALBUMIN (BEAKER) (test code = 1145) 3.1 g/dL 3.5-5.0 L Specimen slightl y hemolyzed BILIRUBIN TOTAL (BEAKER) (test code = 377) 1.8 mg/dL 0.2-1.2 H Specimen slightl y hemolyzed BILIRUBIN DIRECT (BEAKER) (test code = 706) 0.9 mg/dL 0.1-0.5 H Specimen slightl y hemolyzed ALKALINE PHOSPHATASE (BEAKER) (test code = 346) 198 U/L 40-150 H AST (SGOT) (BEAKER) (test code = 353) 43 U/L 5-34 H Specimen sligh tly hemolyzed ALT (SGPT) (BEAKER) (test code = 347) 61 U/L 6-55 H Specimen sligh tly hemolyzed PT/[id number] 23:38:00* Test Item Value Reference Range Interpretation Comme nts PROTIME (BEAKER) (test code = 759) 74.9 seconds 11.7-14.7 H INR (BEAKER) (test code = 370) 9.2 <=5.9 HH PARTIAL THROMBOPLASTIN TIME (BEAKER) (test code = 760) 166.6 seconds 22.5-36.0 HH RECOMMENDED COUMADIN/WARFARIN INR THERAPY RANGESSTANDARD DOSE: 2.0 - 3.0 Includes: PROPHYLAXIS for venous thrombosis, systemic embolization; TREATMENT for venous thrombosis and/or pulmonary embolus.HIGH RISK: Target INR is 2.5-3.5 for patients with mechanical heart valves.CBC (HEMOGRAM ONLY)2018-03-17 23:21:00 * Test Item Value Reference Range Interpretation Comme nts WHITE BLOOD CELL COUNT (BEAK ER) (test code = 775) 11.1 K/ L 3.5-10.5 H RED BLOOD CELL COUNT (BEAKER ) (test code = 761) 3.71 M/ L 4.63-6.08 L HEMOGLOBIN (BEAKER) (test co de = 410) 11.6 GM/DL 13.7-17.5 L HEMATOCRIT (BEAKER) (test co de = 411) 36.3 % 40.1-51.0 L MEAN CORPUSCULAR VOLUME (PANCHO KER) (test code = 753) 97.8 fL 79.0-92.2 H MEAN CORPUSCULAR HEMOGLOBIN (BEAKER) (test code = 751) 31.3 pg 25.7-32.2 MEAN CORPUSCULAR HEMOGLOBIN CONC (BEAKER) (test code = 752) 32.0 GM/DL 32.3-36.5 L RED CELL DISTRIBUTION WIDTH (BEAKER) (test code = 412) 16.6 % 11.6-14.4 H PLATELET COUNT (BEAKER) (david t code = 756) 310 K/CU MM 150-450 MEAN PLATELET VOLUME (BEAKER ) (test code = 754) 9.3 fL 9.4-12.4 L NUCLEATED RED BLOOD CELLS (BEAKER) (test code = 413) 0 /100 WBC 0-0 BLOOD [id number] 17:01:00* Test Item Value Reference Range Interpretation Comme nts CULTURE (BEAKER) (test code = 1095) No growth in 5 days [id number] 07:54:00* Test Item Value Reference Range Interpretation Comme nts PARTIAL THROMBOPLASTIN TIME (BEAKER) (test code = 760) 97.6 seconds 22.5-36.0 H While on warfarin.PROTHROMBIN TIME/[id number] 07:52:00* Test Item Value Reference Range Interpretation Comme nts PROTIME (BEAKER) (test code = 759) 24.2 seconds 11.7-14.7 H INR (BEAKER) (test code = 370) 2.2 <=5.9 RECOMMENDED COUMADIN/WARFARIN INR THERAPY RANGESSTANDARD DOSE: 2.0 - 3.0 Includes: PROPHYLAXIS for venous thrombosis, systemic embolization; TREATMENT for venous thrombosis and/or pulmonary embolus.HIGH RISK: Target INR is 2.5-3.5 for patients with mechanical heart valves.While on warfarin.CBC (HEMOGRAM ONLY) 2018-02-16 07:37:00* Test Item Value Reference Range Interpretation Comme nts WHITE BLOOD CELL COUNT (BEAK ER) (test code = 775) 7.6 K/ L 3.5-10.5 RED BLOOD CELL COUNT (BEAKER ) (test code = 761) 2.74 M/ L 4.63-6.08 L HEMOGLOBIN (BEAKER) (test co de = 410) 8.6 GM/DL 13.7-17.5 L HEMATOCRIT (BEAKER) (test co de = 411) 27.5 % 40.1-51.0 L MEAN CORPUSCULAR VOLUME (PANCHO KER) (test code = 753) 100.4 fL 79.0-92.2 H MEAN CORPUSCULAR HEMOGLOBIN (BEAKER) (test code = 751) 31.4 pg 25.7-32.2 MEAN CORPUSCULAR HEMOGLOBIN CONC (BEAKER) (test code = 752) 31.3 GM/DL 32.3-36.5 L RED CELL DISTRIBUTION WIDTH (BEAKER) (test code = 412) 19.2 % 11.6-14.4 H PLATELET COUNT (BEAKER) (david t code = 756) 284 K/CU MM 150-450 MEAN PLATELET VOLUME (BEAKER ) (test code = 754) 10.1 fL 9.4-12.4 NUCLEATED RED BLOOD CELLS (BEAKER) (test code = 413) 0 /100 WBC 0-0 BASIC METABOLIC [id number] 07:29:00* Test Item Value Reference Range Interpretation Comme nts SODIUM (BEAKER) (test code = 381) 138 meq/L 136-145 POTASSIUM (BEAKER) (test code = 379) 3.6 meq/L 3.5-5.1 CHLORIDE (BEAKER) (test code = 382) 108 meq/L 98-107 H CO2 (BEAKER) (test code = 355) 26 meq/L 22-29 BLOOD UREA NITROGEN (BEAKER) (test code = 354) 6 mg/dL 7-21 L CREATININE (BEAKER) (test code = 358) 0.77 mg/dL 0.57-1.25 GLUCOSE RANDOM (BEAKER) (test code = 652) 94 mg/dL 70-105 CALCIUM (BEAKER) (test code = 697) 8.6 mg/dL 8.4-10.2 EGFR (BEAKER) (test code = 1092) mL/min/1.73 sq m INSUFFICIENT CLINICA L DATA TO CALCULATE ESTIMATED GFR. VANCOMYCIN LEVEL, [id number] 23:50:00* Test Item Value Reference Range Interpretation Comme nts VANCOMYCIN TROUGH (BEAKER) ( test code = 522) 15.4 ug/mL 10.0-20.0 EEG MONITORING WITH VIDEO RECORDING EACH 24 [id number] 15:03:00Date(s) of EE02/14/18; 02/15/18 DATE OF REPORT: 02/15/18 ACC: [id number] EEG Number: [id number] Test Location: Floor 2431 Start time: 02/14/18 at 1711 Stop time: 02/15/18 at 1403 ICD-10: [id number] CPT Code: R41.82 HISTORY: 67 year old male with h/o epilepsy s/p outpatient hernia repair presented with esophagitis, gastritis, duodenditis, developed hematemesis and abdominal pain with alteration of awar eness. MEDICATIONS THAT COULD AFFECT EEG: Lacosamide, Lamotrigine TECHNICAL SUMMARY: This is a digital video-EEG recorded with 32 input channels reviewed with bipolar and referential montages using the modified combinatorial system nomenclature. DESCRIPTION OF RECORD: During the maximally alert state an 8.5 Hz posterior dominant rhythm was seen that was symmetric, reactive to eye opening and wellregulated. More anteriorly, low voltage frontocentral beta predominated. Drowsiness was characterized by alpha attenuation and increased frontocentral theta, vertex sharp transients. Stage 2 sleep was reached characterized by symmetric sleep spindles. Towards the latter half of the recording, thereis progressively diffuse electrode and movement artifact. SIGNIFICANT [...] Fellow Jackson Mosley MD PhD Attending Neurophysiologist [facility] [id number] 07:57:00* Test Item Value Reference Range Interpretation Comme nts PARTIAL THROMBOPLASTIN TIME (BEAKER) (test code = 760) 79.9 seconds 22.5-36.0 H BASIC METABOLIC [id number] 05:44:00* Test Item Value Reference Range Interpretation Comme nts SODIUM (BEAKER) (test code = 381) 137 meq/L 136-145 POTASSIUM (BEAKER) (test code = 379) 3.5 meq/L 3.5-5.1 CHLORIDE (BEAKER) (test code = 382) 107 meq/L 98-107 CO2 (BEAKER) (test code = 355) 25 meq/L 22-29 BLOOD UREA NITROGEN (BEAKER) (test code = 354) 8 mg/dL 7-21 CREATININE (BEAKER) (test code = 358) 0.76 mg/dL 0.57-1.25 GLUCOSE RANDOM (BEAKER) (test code = 652) 105 mg/dL 70-105 CALCIUM (BEAKER) (test code = 697) 8.6 mg/dL 8.4-10.2 EGFR (BEAKER) (test code = 1092) mL/min/1.73 sq m INSUFFICIENT CLINICA L DATA TO CALCULATE ESTIMATED GFR. PROTHROMBIN TIME/[id number] 05:16:00* Test Item Value Reference Range Interpretation Comme nts PROTIME (BEAKER) (test code = 759) 22.4 seconds 11.7-14.7 H INR (BEAKER) (test code = 370) 2.0 <=5.9 RECOMMENDED COUMADIN/WARFARIN INR THERAPY RANGESSTANDARD DOSE: 2.0 - 3.0 Includes: PROPHYLAXIS for venous thrombosis, systemic embolization; TREATMENT for venous thrombosis and/or pulmonary embolus.HIGH RISK: Target INR is 2.5-3.5 for patients with mechanical heart valves.While on warfarin.CBC (HEMOGRAM ONLY) 2018-02-15 05:06:00* Test Item Value Reference Range Interpretation Comme nts WHITE BLOOD CELL COUNT (BEAK ER) (test code = 775) 8.6 K/ L 3.5-10.5 RED BLOOD CELL COUNT (BEAKER ) (test code = 761) 2.71 M/ L 4.63-6.08 L HEMOGLOBIN (BEAKER) (test co de = 410) 8.4 GM/DL 13.7-17.5 L HEMATOCRIT (BEAKER) (test co de = 411) 26.7 % 40.1-51.0 L MEAN CORPUSCULAR VOLUME (PANCHO KER) (test code = 753) 98.5 fL 79.0-92.2 H MEAN CORPUSCULAR HEMOGLOBIN (BEAKER) (test code = 751) 31.0 pg 25.7-32.2 MEAN CORPUSCULAR HEMOGLOBIN CONC (BEAKER) (test code = 752) 31.5 GM/DL 32.3-36.5 L RED CELL DISTRIBUTION WIDTH (BEAKER) (test code = 412) 18.6 % 11.6-14.4 H PLATELET COUNT (BEAKER) (david t code = 756) 260 K/CU MM 150-450 MEAN PLATELET VOLUME (BEAKER ) (test code = 754) 9.7 fL 9.4-12.4 NUCLEATED RED BLOOD CELLS (BEAKER) (test code = 413) 0 /100 WBC 0-0 [id number] 02:06:00* Test Item Value Reference Range Interpretation Comme nts PARTIAL THROMBOPLASTIN TIME (BEAKER) (test code = 760) 74.3 seconds 22.5-36.0 H RAD, ABDOMEN/KUB, 1 VIEW [id number] 21:56:00Reason for exam:->constipation FINAL REPORT CLINICAL HISTORY: [...] and pelvis. Normal osseous structures. Signed: Nikkie Escobareport Verified Date/Time: 02/14/2018 21:56:57 Reading Location: [facility] C013T Transitional Reading Room EEG AWAKE AND [id number] 20:02:00Reason for exam:->episodes of fluctuating mentationReason for exam:->Please perform a continous studyDate(s) of EE02/14/18 DATE OF REPORT: 02/14/18 ACC: [id number] EEG Number: [id number] Test Location: Inpatient ICU Start time: 1645 Stop time: 1951 ICD-10: 81272 CPT Code: G40.909 HISTORY: 67 year old [...] opening and well regulated. More anteriorly, low voltagefrontocentral beta predominated. Drowsiness was characterized by alpha [...] MD Neurophysiology Fellow Jagruti Russo Attending Neurophysiologist [facility] [id number] 19:17:00* Test Item Value Reference Range Interpretation Comme nts PARTIAL THROMBOPLASTIN TIME (BEAKER) (test code = 760) 57.2 seconds 22.5-36.0 H URINALYSIS W/ REFLEX URINE [id number] 17:40:00* Test Item Value Reference Range Interpretation Comme nts COLOR (BEAKER) (test code = 470) Yellow CLARITY (BEAKER) (test code = 469) Clear SPECIFIC GRAVITY UA (BEAKER) (test code = 468) 1.016 1.001-1.035 PH UA (BEAKER) (test code = 467) 7.5 5.0-8.0 PROTEIN UA (BEAKER) (test co de = 464) 30 mg/dL Negative A GLUCOSE UA (BEAKER) (test co de = 365) Negative Negative KETONES UA (BEAKER) (test co de = 371) Negative Negative BILIRUBIN UA (BEAKER) (test code = 462) Negative Negative BLOOD UA (BEAKER) (test code = 461) Negative Negative NITRITE UA (BEAKER) (test co de = 465) Negative Negative LEUKOCYTE ESTERASE UA (BEAKE R) (test code = 466) Negative Negative UROBILINOGEN UA (BEAKER) (te st code = 463) 3.0 mg/dL 0.2-1.0 H RBC UA (BEAKER) (test code = 519) < /HPF WBC UA (BEAKER) (test code = 520) 1 /HPF MUCUS (BEAKER) (test code = 1574) Occasional SQUAMOUS EPITHELIAL (BEAKER) (test code = 516) < /HPF SOURCE(BEAKER) (test code = 2795) MR, BRAIN, WITHOUT [id number] 12:31:00Has mechanical AV, uncertain if patient can [...] the cerebellum. There is generalized parenchymal volume l oss. Normal appearing flow-voids are present in the major intracranial vascular structures. The sellar and pineal regions are normal. The craniovertebral junction is intact. The orbits, face, and skull base are without worrisome finding. IMPRESSION: Chronic ischemic changes. No acute intracranial ab normality. Signed: Abdi Mg Verified Date/Time: 02/14/2018 12:31:11 Reading Location: [address] Neuro Reading Room [id number] 10:56:00* Test Item Value Reference Range Interpretation Comme nts PARTIAL THROMBOPLASTIN TIME (BEAKER) (test code = 760) 69.2 seconds 22.5-36.0 H BASIC METABOLIC [id number] 04:48:00* Test Item Value Reference Range Interpretation Comme nts SODIUM (BEAKER) (test code = 381) 139 meq/L 136-145 POTASSIUM (BEAKER) (test code = 379) 3.5 meq/L 3.5-5.1 CHLORIDE (BEAKER) (test code = 382) 106 meq/L 98-107 CO2 (BEAKER) (test code = 355) 27 meq/L 22-29 BLOOD UREA NITROGEN (BEAKER) (test code = 354) 6 mg/dL 7-21 L CREATININE (BEAKER) (test code = 358) 0.78 mg/dL 0.57-1.25 GLUCOSE RANDOM (BEAKER) (test code = 652) 104 mg/dL 70-105 CALCIUM (BEAKER) (test code = 697) 8.6 mg/dL 8.4-10.2 EGFR (BEAKER) (test code = 1092) mL/min/1.73 sq m INSUFFICIENT CLINICA L DATA TO CALCULATE ESTIMATED GFR. [id number] 04:44:00* Test Item Value Reference Range Interpretation Comme nts PARTIAL THROMBOPLASTIN TIME (BEAKER) (test code = 760) 105.1 seconds 22.5-36.0 H While on warfarin.PROTHROMBIN TIME/[id number] 04:41:00* Test Item Value Reference Range Interpretation Comme nts PROTIME (BEAKER) (test code = 759) 20.9 seconds 11.7-14.7 H INR (BEAKER) (test code = 370) 1.8 <=5.9 RECOMMENDED COUMADIN/WARFARIN INR THERAPY RANGESSTANDARD DOSE: 2.0 - 3.0 Includes: PROPHYLAXIS for venous thrombosis, systemic embolization; TREATMENT for venous thrombosis and/or pulmonary embolus.HIGH RISK: Target INR is 2.5-3.5 for patients with mechanical heart valves.While on warfarin.CBC (HEMOGRAM ONLY) 2018-02-14 04:25:00* Test Item Value Reference Range Interpretation Comme nts WHITE BLOOD CELL COUNT (BEAK ER) (test code = 775) 7.0 K/ L 3.5-10.5 RED BLOOD CELL COUNT (BEAKER ) (test code = 761) 2.55 M/ L 4.63-6.08 L HEMOGLOBIN (BEAKER) (test co de = 410) 7.8 GM/DL 13.7-17.5 L HEMATOCRIT (BEAKER) (test co de = 411) 25.2 % 40.1-51.0 L MEAN CORPUSCULAR VOLUME (PANCHO KER) (test code = 753) 98.8 fL 79.0-92.2 H MEAN CORPUSCULAR HEMOGLOBIN (BEAKER) (test code = 751) 30.6 pg 25.7-32.2 MEAN CORPUSCULAR HEMOGLOBIN CONC (BEAKER) (test code = 752) 31.0 GM/DL 32.3-36.5 L RED CELL DISTRIBUTION WIDTH (BEAKER) (test code = 412) 18.1 % 11.6-14.4 H PLATELET COUNT (BEAKER) (david t code = 756) 237 K/CU MM 150-450 MEAN PLATELET VOLUME (BEAKER ) (test code = 754) 9.5 fL 9.4-12.4 NUCLEATED RED BLOOD CELLS (BEAKER) (test code = 413) 0 /100 WBC 0-0 [id number] 03:18:00* Test Item Value Reference Range Interpretation Comme nts RPR SCREEN (BEAKER) (test co de = 420) Nonreactive Nonreactive [id number] 18:49:00* Test Item Value Reference Range Interpretation Comme nts PARTIAL THROMBOPLASTIN TIME (BEAKER) (test code = 760) 70.7 seconds 22.5-36.[address], BRAIN, WITHOUT [id number] 13:33:00FINAL REPORT CT head without contrast 02/13/2018 [...] There is no hemorrhage, extra-axial collection, mass, h ydrocephalus, or midline shift. There is mild microvascular [...] MRI if clinically indicated. Signed: Abdi Mg Verified Date/Time: 02/13/2018 13:33:21 Reading Location: [address] Neuro Reading Room [id number] 13:28:00* Test Item Value Reference Range Interpretation Comme nts PARTIAL THROMBOPLASTIN TIME (BEAKER) (test code = 760) 69.2 seconds 22.5-36.0 H VITAMIN B12 AND [id number] 09:14:00* Test Item Value Reference Range Interpretation Comme nts VITAMIN B12 (BEAKER) (test c ode = 774) > pg/mL 213-816 H FOLATE (BEAKER) (test code = 362) 4.8 ng/mL >=7.0 L T4, [id number] 09:13:00* Test Item Value Reference Range Interpretation Comme nts FREE T4 (BEAKER) (test code = 655) 0.94 ng/dL 0.70-1.48 TSH/FREE T4 IF [id number] 08:18:00* Test Item Value Reference Range Interpretation Comme nts THYROID STIMULATING HORMONE (BEAKER) (test code = 772) 9.92 uIU/mL 0.35-4.94 H HEMOGLOBIN [id number] 08:06:00* Test Item Value Reference Range Interpretation Comme nts HEMOGLOBIN A1C (BEAKER) (david t code = 368) 5.6 % 4.3-6.1 [id number] 06:57:00* Test Item Value Reference Range Interpretation Comme nts PARTIAL THROMBOPLASTIN TIME (BEAKER) (test code = 760) 62.5 seconds 22.5-36.0 H BASIC METABOLIC [id number] 06:04:00* Test Item Value Reference Range Interpretation Comme nts SODIUM (BEAKER) (test code = 381) 139 meq/L 136-145 POTASSIUM (BEAKER) (test code = 379) 3.3 meq/L 3.5-5.1 L CHLORIDE (BEAKER) (test code = 382) 106 meq/L 98-107 CO2 (BEAKER) (test code = 355) 27 meq/L 22-29 BLOOD UREA NITROGEN (BEAKER) (test code = 354) 7 mg/dL 7-21 CREATININE (BEAKER) (test code = 358) 0.82 mg/dL 0.57-1.25 GLUCOSE RANDOM (BEAKER) (test code = 652) 105 mg/dL 70-105 CALCIUM (BEAKER) (test code = 697) 8.6 mg/dL 8.4-10.2 EGFR (BEAKER) (test code = 1092) mL/min/1.73 sq m INSUFFICIENT CLINICA L DATA TO CALCULATE ESTIMATED GFR. CBC (HEMOGRAM ONLY)2018-02-13 05:02:00* Test Item Value Reference Range Interpretation Comme nts WHITE BLOOD CELL COUNT (BEAK ER) (test code = 775) 8.9 K/ L 3.5-10.5 RED BLOOD CELL COUNT (BEAKER ) (test code = 761) 2.76 M/ L 4.63-6.08 L HEMOGLOBIN (BEAKER) (test co de = 410) 8.3 GM/DL 13.7-17.5 L HEMATOCRIT (BEAKER) (test co de = 411) 27.0 % 40.1-51.0 L MEAN CORPUSCULAR VOLUME (PANCHO KER) (test code = 753) 97.8 fL 79.0-92.2 H MEAN CORPUSCULAR HEMOGLOBIN (BEAKER) (test code = 751) 30.1 pg 25.7-32.2 MEAN CORPUSCULAR HEMOGLOBIN CONC (BEAKER) (test code = 752) 30.7 GM/DL 32.3-36.5 L RED CELL DISTRIBUTION WIDTH (BEAKER) (test code = 412) 17.7 % 11.6-14.4 H PLATELET COUNT (BEAKER) (david t code = 756) 245 K/CU MM 150-450 MEAN PLATELET VOLUME (BEAKER ) (test code = 754) 9.9 fL 9.4-12.4 NUCLEATED RED BLOOD CELLS (BEAKER) (test code = 413) 0 /100 WBC 0-0 [id number] 05:01:00* Test Item Value Reference Range Interpretation Comme nts PARTIAL THROMBOPLASTIN TIME (BEAKER) (test code = 760) 129.9 seconds 22.5-36.0 H While on warfarin.PROTHROMBIN TIME/[id number] 04:58:00* Test Item Value Reference Range Interpretation Comme nts PROTIME (BEAKER) (test code = 759) 18.2 seconds 11.7-14.7 H INR (BEAKER) (test code = 370) 1.5 <=5.9 RECOMMENDED COUMADIN/WARFARIN INR THERAPY RANGESSTANDARD DOSE: 2.0 - 3.0 Includes: PROPHYLAXIS for venous thrombosis, systemic embolization; TREATMENT for venous thrombosis and/or pulmonary embolus.HIGH RISK: Target INR is 2.5-3.5 for patients with mechanical heart valves.While on warfarin.LIPID PANEL 2018-02-12 21:59:00* Test Item Value Reference Range Interpretation Comme nts TRIGLYCERIDES (BEAKER) (test code = 540) 126 mg/dL CHOLESTEROL (BEAKER) (test c ode = 631) 166 mg/dL HDL CHOLESTEROL (BEAKER) (te st code = 976) 31 mg/dL LDL CHOLESTEROL CALCULATED ( BEAKER) (test code = 633) 110 mg/dL Triglyceride Reference Range: Low Risk <150 Borderline 150-199 High Risk 200-499 Very High Risk >=500Cholesterol Reference Range: Low Risk <200 Borderline 200-239 High Risk >240HDL Cholesterol Reference Range: Low Risk >=60 High Risk <40LDL Cholesterol Reference Range: Optimal <100 Near Optimal 100-129 Borderline 130-159 High 160-189 Very High >=[id number] 21:47:00* Test Item Value Reference Range Interpretation Comme nts PARTIAL THROMBOPLASTIN TIME (BEAKER) (test code = 760) 75.6 seconds 22.5-36.0 H HEMOGLOBIN AND [id number] 21:38:00* Test Item Value Reference Range Interpretation Comme nts HEMOGLOBIN (BEAKER) (test co de = 410) 8.6 GM/DL 13.7-17.5 L HEMATOCRIT (BEAKER) (test co de = 411) 28.0 % 40.1-51.[address], CTANGIO [id number] 18:19:00FINAL REPORT CTA carotids and brain 02/12/2018 6:10 PM CLINICAL INDICATION: Stroke COMPARISON: None available TECHNIQUE: Noncontrast axial CT images of the head were obtained. Subsequently, axial CT angiographic images of the upper chest, neck, and head were obtained, from which three-dimensional reconstructed images were created. Additional imaging series were created on anReviewZAP workstation using maximum intensity projection and volume [...] infarcts in the cerebellum. There is mild micr ovascular ischemia in the supratentorial white matter, with a lacunar infarct in the left caudate nucleus. There is no vessel occlusion in the intracranial or extracranial arterial vasculature. Thereis no NASCET quantifiable cervical internal carotid artery [...] Mg Verified Date/Time: 02/12/2018 18:19:07 Reading Location: [facility] Radiology Reading Room CT, CAROTID, [id number] 18:19:00FINAL REPORT CTA carotids and brain 02/12/2018 [...] carotid artery stenosis. There is no remarkable stenosiselsewhere in the intracranial or extracranial arterial vasculature. [...] MDReport Verified Date/Time: 02/12/2018 18:19:07 Reading Location: [facility] RadiologyReading Room BASI METABOLIC [id number] 15:37:00* Test Item Value Reference Range Interpretation Comme nts SODIUM (BEAKER) (test code = 381) 140 meq/L 136-145 POTASSIUM (BEAKER) (test code = 379) 3.8 meq/L 3.5-5.1 Specimen sligh tly hemolyzed CHLORIDE (BEAKER) (test code = 382) 105 meq/L 98-107 CO2 (BEAKER) (test code = 355) 30 meq/L 22-29 H BLOOD UREA NITROGEN (BEAKER) (test code = 354) 6 mg/dL 7-21 L CREATININE (BEAKER) (test code = 358) 0.85 mg/dL 0.57-1.25 Specimen sligh tly hemolyzed GLUCOSE RANDOM (BEAKER) (test code = 652) 113 mg/dL 70-105 H CALCIUM (BEAKER) (test code = 697) 8.9 mg/dL 8.4-10.2 EGFR (BEAKER) (test code = 1092) mL/min/1.73 sq m INSUFFICIENT CLINICA L DATA TO CALCULATE ESTIMATED GFR. [id number] 15:07:00* Test Item Value Reference Range Interpretation Comme nts PARTIAL THROMBOPLASTIN TIME (BEAKER) (test code = 760) 77.4 seconds 22.5-36.0 H HEMOGLOBIN AND [id number] 14:59:00* Test Item Value Reference Range Interpretation Comme nts HEMOGLOBIN (BEAKER) (test co de = 410) 8.7 GM/DL 13.7-17.5 L HEMATOCRIT (BEAKER) (test co de = 411) 27.7 % 40.1-51.0 L POCT-GLUCOSE [id number] 12:31:00* Test Item Value Reference Range Interpretation Comme nts POC-GLUCOSE METER (BEAKER) (test code = 1538) 118 mg/dL 70-[address] 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 [...] neurology housestaff at 12:20 PM Signed: Dashawn Hamiltoneport Verified Date/Time: 02/12/2018 12:24:12 Reading Location: [facility] Radiology Reading Room [id number] 07:08:00* Test Item Value Reference Range Interpretation Comme nts PARTIAL THROMBOPLASTIN TIME (BEAKER) (test code = 760) 119.2 seconds 22.5-36.0 H While on warfarin.PROTHROMBIN TIME/[id number] 06:53:00* Test Item Value Reference Range Interpretation Comme nts PROTIME (BEAKER) (test code = 759) 17.0 seconds 11.7-14.7 H INR (BEAKER) (test code = 370) 1.4 <=5.9 RECOMMENDED COUMADIN/WARFARIN INR THERAPY RANGESSTANDARD DOSE: 2.0 - 3.0 Includes: PROPHYLAXIS for venous thrombosis, systemic embolization; TREATMENT for venous thrombosis and/or pulmonary embolus.HIGH RISK: Target INR is 2.5-3.5 for patients with mechanical heart valves.While on warfarin.HEMOGLOBIN AND [id number] 06:47:00* Test Item Value Reference Range Interpretation Comme nts HEMOGLOBIN (BEAKER) (test co de = 410) 8.4 GM/DL 13.7-17.5 L HEMATOCRIT (BEAKER) (test co de = 411) 26.9 % 40.1-51.0 L Baseline and daily starting prior to initiation of heparin infusionCBC (HEMOGRAM ONLY)2018-02-12 06:47:00* Test Item Value Reference Range Interpretation Comme nts WHITE BLOOD CELL COUNT (BEAK ER) (test code = 775) 7.5 K/ L 3.5-10.5 RED BLOOD CELL COUNT (BEAKER ) (test code = 761) 2.76 M/ L 4.63-6.08 L HEMOGLOBIN (BEAKER) (test co de = 410) 8.4 GM/DL 13.7-17.5 L HEMATOCRIT (BEAKER) (test co de = 411) 26.9 % 40.1-51.0 L MEAN CORPUSCULAR VOLUME (PANCHO KER) (test code = 753) 97.5 fL 79.0-92.2 H MEAN CORPUSCULAR HEMOGLOBIN (BEAKER) (test code = 751) 30.4 pg 25.7-32.2 MEAN CORPUSCULAR HEMOGLOBIN CONC (BEAKER) (test code = 752) 31.2 GM/DL 32.3-36.5 L RED CELL DISTRIBUTION WIDTH (BEAKER) (test code = 412) 17.6 % 11.6-14.4 H PLATELET COUNT (BEAKER) (david t code = 756) 233 K/CU MM 150-450 MEAN PLATELET VOLUME (BEAKER ) (test code = 754) 10.0 fL 9.4-12.4 NUCLEATED RED BLOOD CELLS (BEAKER) (test code = 413) 0 /100 WBC 0-0 [id number] 23:21:00* Test Item Value Reference Range Interpretation Comme nts PARTIAL THROMBOPLASTIN TIME (BEAKER) (test code = 760) 55.4 seconds 22.5-36.0 H HEMOGLOBIN AND [id number] 22:51:00* Test Item Value Reference Range Interpretation Comme nts HEMOGLOBIN (BEAKER) (test co de = 410) 8.8 GM/DL 13.7-17.5 L HEMATOCRIT (BEAKER) (test co de = 411) 29.5 % 40.1-51.0 L POCT-GLUCOSE [id number] 17:14:00* Test Item Value Reference Range Interpretation Comme nts POC-GLUCOSE METER (BEAKER) (test code = 1538) 128 mg/dL 70-[address] [facility] [address] [facility] [address] [id number] 15:48:00* Test Item Value Reference Range Interpretation Comme nts PARTIAL THROMBOPLASTIN TIME (BEAKER) (test code = 760) 33.7 seconds 22.5-36.0 Prior to initiating heparinHEMOGLOBIN AND [id number] 13:58:00* Test Item Value Reference Range Interpretation Comme nts HEMOGLOBIN (BEAKER) (test co de = 410) 8.5 GM/DL 13.7-17.5 L HEMATOCRIT (BEAKER) (test co de = 411) 26.6 % 40.1-51.0 L POCT-GLUCOSE [id number] 12:17:00* Test Item Value Reference Range Interpretation Comme nts POC-GLUCOSE METER (BEAKER) (test code = 1538) 124 mg/dL 70-[address] [facility] [address] [facility] [address] RAD, CHEST, 1 VIEW, NON [id number] 07:19:00Reason for exam:->hypoxia; eval for perforated viscusShould this be performed at the bedside?->YesFINAL REPORT RAD, CHEST, 1 VIEW, NON DEPT INDICATION: hypoxia; eval for perforated viscus COMPARISON: None FINDINGS: Portable frontal view of the chest. IMPRESSION: Support Lines: None. Lungs and pleura: Basilar subsegmental atelectasis and trace effusions. Presuming upright positioning, no visible subdiaphragmatic gas. No pneumothorax.Heart and mediastinum: Prominent cardiacsilhouette. Sternotomy wires are intact.Additional findings: None. Signed: JR Muñoz RobertMDReport Verified Date/Time: 02/11/2018 07:19:35 Reading Location: [address] Neuro Reading Room RAD, ABDOMEN/KUB, 1 VIEW AP 2018-02-11 07:18:00Reason for exam:->eval for perforated viscusShould this [...] The regional skeleton is intact. Signed: JR Wanda, Isrrael Hartley Verified Date/Time: 02/11/2018 07:18:28 Reading Location: [address] Neuro Reading Room COMPREHENSIVE METABOLIC PANEL 2018-02-11 06:09:00* Test Item Value Reference Range Interpretation Comme nts TOTAL PROTEIN (BEAKER) (test code = 770) 6.2 gm/dL 6.0-8.3 ALBUMIN (BEAKER) (test code = 1145) 3.1 g/dL 3.5-5.0 L ALKALINE PHOSPHATASE (BEAKER) (test code = 346) 65 U/L 40-150 BILIRUBIN TOTAL (BEAKER) (test code = 377) 1.1 mg/dL 0.2-1.2 SODIUM (BEAKER) (test code = 381) 139 meq/L 136-145 POTASSIUM (BEAKER) (test code = 379) 4.3 meq/L 3.5-5.1 CHLORIDE (BEAKER) (test code = 382) 105 meq/L 98-107 CO2 (BEAKER) (test code = 355) 28 meq/L 22-29 BLOOD UREA NITROGEN (BEAKER) (test code = 354) 3 mg/dL 7-21 L CREATININE (BEAKER) (test code = 358) 0.73 mg/dL 0.57-1.25 GLUCOSE RANDOM (BEAKER) (test code = 652) 124 mg/dL 70-105 H CALCIUM (BEAKER) (test code = 697) 8.8 mg/dL 8.4-10.2 AST (SGOT) (BEAKER) (test code = 353) 27 U/L 5-34 ALT (SGPT) (BEAKER) (test code = 347) 17 U/L 6-55 EGFR (BEAKER) (test code = 1092) mL/min/1.73 sq m INSUFFICIENT CLINICAL DATA TO CALCULATE ESTIMATED GFR. [id number] 06:07:00* Test Item Value Reference Range Interpretation Comme nts PHOSPHORUS (BEAKER) (test co de = 604) 3.3 mg/dL 2.3-4.7 [id number] 06:07:00* Test Item Value Reference Range Interpretation Comme nts MAGNESIUM (BEAKER) (test cod e = 627) 1.8 mg/dL 1.6-2.6 PROTHROMBIN TIME/[id number] 05:46:00* Test Item Value Reference Range Interpretation Comme nts PROTIME (BEAKER) (test code = 759) 16.0 seconds 11.7-14.7 H INR (BEAKER) (test code = 370) 1.3 <=5.9 RECOMMENDED COUMADIN/WARFARIN INR THERAPY RANGESSTANDARD DOSE: 2.0 - 3.0 Includes: PROPHYLAXIS for venous thrombosis, systemic embolization; TREATMENT for venous thrombosis and/or pulmonary embolus.HIGH RISK: Target INR is 2.5-3.5 for patients with mechanical heart valves.CBC W/PLT COUNT & AUTO DIFFERENTIAL 2018-02-11 05:39:00* Test Item Value Reference Range Interpretation Comme nts WHITE BLOOD CELL COUNT (BEAK ER) (test code = 775) 8.6 K/ L 3.5-10.5 RED BLOOD CELL COUNT (BEAKER ) (test code = 761) 3.01 M/ L 4.63-6.08 L HEMOGLOBIN (BEAKER) (test co de = 410) 9.2 GM/DL 13.7-17.5 L HEMATOCRIT (BEAKER) (test co de = 411) 29.2 % 40.1-51.0 L MEAN CORPUSCULAR VOLUME (PANCHO KER) (test code = 753) 97.0 fL 79.0-92.2 H MEAN CORPUSCULAR HEMOGLOBIN (BEAKER) (test code = 751) 30.6 pg 25.7-32.2 MEAN CORPUSCULAR HEMOGLOBIN CONC (BEAKER) (test code = 752) 31.5 GM/DL 32.3-36.5 L RED CELL DISTRIBUTION WIDTH (BEAKER) (test code = 412) 17.2 % 11.6-14.4 H PLATELET COUNT (BEAKER) (david t code = 756) 267 K/CU MM 150-450 MEAN PLATELET VOLUME (BEAKER ) (test code = 754) 9.9 fL 9.4-12.4 NUCLEATED RED BLOOD CELLS (BEAKER) (test code = 413) 0 /100 WBC 0-0 NEUTROPHILS RELATIVE PERCENT (BEAKER) (test code = 429) 51 % LYMPHOCYTES RELATIVE PERCENT (BEAKER) (test code = 430) 39 % MONOCYTES RELATIVE PERCENT (BEAKER) (test code = 431) 6 % EOSINOPHILS RELATIVE PERCENT (BEAKER) (test code = 432) 0 % BASOPHILS RELATIVE PERCENT (BEAKER) (test code = 437) 1 % NEUTROPHILS ABSOLUTE COUNT (BEAKER) (test code = 670) 4.42 K/ L 1.78-5.38 LYMPHOCYTES ABSOLUTE COUNT (BEAKER) (test code = 414) 3.37 K/ L 1.32-3.57 MONOCYTES ABSOLUTE COUNT (BE LILI) (test code = 415) 0.49 K/ L 0.30-0.82 EOSINOPHILS ABSOLUTE COUNT (BEAKER) (test code = 416) 0.02 K/ L 0.04-0.54 L BASOPHILS ABSOLUTE COUNT (BE LILI) (test code = 417) 0.04 K/ L 0.01-0.08 IMMATURE GRANULOCYTES-RELATI VE PERCENT (BEAKER) (test code = 2801) 3 % 0-1 H History and Physical Notes Date/Time Note Provider Source 2024-07-06 08:15:56 H&P Update H&P was reviewed and the patient was examined and there was no change in the patient's condition. T [facility] [employer] [facility] Notes Bilateral hands with good and herberden nodules.Assessment/PlanAssessment & PlanOrders:Mechanical heart valve presentOn warfarin therapySherin Minor, MDScheduled Orders Date/Time Note Provider Source 2024-06-29 10:54:43 Images from the original note were not included. Your procedure is at [facility] on 07/06/24. The address is [address] [place] [address], [id number]. [facility] nursing staff will call you the workday prior to surgery/procedure between 12-3 pm with your arrival time. When you arrive, please come inside and sign in at the desk. Please note: You may not travel home alone and that includes in a taxi or by bus. We must speak to your Responsible Adult (who will be picking you up) the morning of your procedure, before the start of your procedure. This person must be an adult over the age of 18 years of age. Do not eat any solid food after midnight the night before surgery. May have 8-16 oz of water/clear liquids each hour after midnight, as desired, until two hours prior to arrival to promote hydration. You may take your medications with a sip of water as directed by physician. Anticoagulants will be per physician guidance. Detailed warfarin/enoxaparin bridging instructions discussed and emailed to patient. Patient moved on surgery schedule to accommodate Lovenox bride dosing. Other medication Note(s)/Instructions:Instructed to take lamotrigine, lacosimide, dexlansoprazole, levothyroxine, and valsartan morning of procedure. Pending screening, we may test for COVID. If a patient tests positive, their cases are cancelled and/or rescheduled. COVID SCREENING NOTE: Denies COVID symptoms, no testing required. Additional requests, questions, concerns:CB number and availability provided. Patient verbalized understanding of pre-op instructions and voiced no further questions at this time. [facility] 2023-11-24 15:57:02 [facility] 2023-11-24 15:57:02 Sherin Minor MD - 11/24/2023 1:50 PM CDT Images from the original note were not included. Subjective Patient ID: Seven Diaz is a 73 y.o. male who presents for Joint Pain (B/L hands and fingers). HPI Patient with hypertension, HLD, hypothyroidism, seizure, mechanical aortic valve replacement on coumadin presents for eval of joint pain. Joint pain: Involves bilateral hands, started around 2019, progressively worsens. Mostly in PIPs and DIPs. Occ hand swelling, am stiffness minimal. Pain is worse when he uses his hands. Tylenol doesn't help much. He saw rheum Dr Lobato, had lab done 12/2022 which showed neg sedimentation rate/c reative protein, RF/CCP/ELN, Neg serology for hepB/C exposure. He hasn't followed up since. Using topical cream, Mg but not so helpful. Reports intense finger pain when he goes fishing. Current Outpatient Medications on File Prior to Visit Medication Sig Dispense Refill atorvastatin (Lipitor) 40 MG tablet Take 40 mg by mouth 1 time each day. b complex vitamins capsule Take 1 capsule by mouth 1 time each day. cholecalciferol (D-5000) 5,000 Units tablet Take 5,000 Units by mouth. [facility] ([facility]) Take 1 capsule by mouth 1 time each day. cyanocobalamin (Vitamin B-12) 1000 MCG tablet Take 1,200 mcg by mouth 1 time each day. dexlansoprazole (Dexilant) [address] capsule Take 60 mg by mouth 1 time each day. fenofibrate (Tricor) 145 MG tablet Take 1 tablet by mouth 1 time each day. finasteride (Proscar) 5 MG tablet Take 5 mg by mouth 1 time each day. gabapentin (Neurontin) 600 MG tablet Take 600 mg by mouth in the evening. lamoTRIgine (LaMICtal) 200 MG tablet Take 1 tablet by mouth in the evening. levothyroxine (Synthroid, Levoxyl) 50 MCG tablet Take 1 tablet by mouth 1 time each day. tadalafil (Cialis) 5 MG tablet Take 5 mg by mouth 1 time each day. tamsulosin (Flomax) 0.4 MG 24 hr capsule Take 0.8 mg by mouth at bedtime. valsartan (Diovan) 80 MG tablet Take 80 mg by mouth 1 time each day. warfarin (Coumadin) 3 MG tablet Take 4 mg by mouth at bedtime. lacosamide (Vimpat) 200 mg tablet tablet Take 200 mg by mouth in the morning and 200 mg in the evening. 150mg in the morning, 200mg at night. No current facility-administered medications on file prior to visit. History reviewed. No pertinent past medical history. Past Surgical History: Procedure Laterality Date CHOLECYSTECTOMY MRI ANGIOGRAM HEAD WO IV CONTRAST 02/14/2018 MRI ANGIOGRAM HEAD WO IV CONTRAST 02/14/2018 OTHER SURGICAL HISTORY 1994 STANDARD MECHANICAL HEART VALVE No family history on file. Social History Socioeconomic History Marital status: Unknown Spouse name: Not on file Number of children: Not on file Years of education: Not on file Highest education level: Not on file Occupational History Not on file Tobacco Use Smoking status: Never Smokeless tobacco: Not on file Vaping Use Vaping status: Never Used Substance and Sexual Activity Alcohol use: Never Drug use: Never Sexual activity: Not on file Other Topics Concern Not on file Social History Narrative Not on file Social Determinants of Health Financial Resource Strain: Not on file Food Insecurity: No Food Insecurity (04/14/2023) Received from [facility] Food Insecurity : Not on file : Not on file Transportation Needs: Not on file Physical Activity: Not on file Stress: Not on file Social Connections: Low Risk (04/14/2023) Received from [facility] Family and Community Support : Not on file : Not on file Intimate Partner Violence: Not on file Housing Stability: Low Risk (04/14/2023) Received from [facility] Housing Stability : Not on file : Not on file No Known Allergies Review of Systems Constitutional: Negative. HENT: Negative. Eyes: Negative. Respiratory: Negative. Cardiovascular: Negative. Gastrointestinal: Negative. Endocrine: Negative. Genitourinary: Negative. Musculoskeletal: Positive for arthralgias and joint swelling. Skin: Negative. Allergic/Immunologic: Negative. Neurological: Negative. Hematological: Negative. Psychiatric/Behavioral: Negative. Objective Physical Exam: Patient ID: Seven Diaz is a 73 y.o. male who presents for Joint Pain (B/L hands and fingers). Pain in both hands Joint pain with mostly non inflammatory features. No synovitis on exam. 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 Will complete eval. Previous eval showed neg RF/CCP. Sedimentation Rate; Future C-Reactive Protein; Future Complete Blood Count w/Diff and Platelet; Future Comprehensive Metabolic Panel; Future Uric Acid; Future Ferritin; Future Vitamin D 25-Hydroxy; Future XR hand 3+ views bilateral; Future On warfarin. Not a candidate for NSAIDs. Follow up: lab, hand x ray, 2 wks. medications were discussed. Reviewed labs and diagnostics with patient. Pt to continue to follow up with PCP for routine health evaluation [facility] Due Date Last Done Comments CT Colonography 1952 Colonoscopy 1952 Colorectal Cancer Screening 1952 FIT-DNA 1952 FIT 1952 FOBT 1952 Lipid Panel 1952 Medicare Annual Wellness (AWV) 1952 Sigmoidoscopy 1952 DTaP/Tdap/Td Vaccines (1 - Tdap) 06/09/1971 Zoster Vaccines (1 of 2) 2002 Respiratory Syncytial Virus (RSV) or >=60 (1 - 1-dose 60+ series) 2012 Influenza Vaccine (#1) 2023 8, 08/16/2015, 12/14/2014 Pneumococcal Vaccine: 65+ Years Completed 11/30/2017, 11/30/2017, 07/22/2017 HIB Vaccines Aged Out No longer eligi ble based on patient's age to complete this topic HPV Vaccines Aged Out No longer eligi ble based on patient's age to complete this topic Hepatitis A Vaccines Aged Out No long er eligible based on patient's age to complete this topic Hepatitis B Vaccines Aged Out No long er eligible based on patient's age to complete this topic IPV Vaccines Aged Out No longer eligi ble based on patient's age to complete this topic Meningococcal Vaccine Aged Out No juanjo josef eligible based on patient's age to complete this topic Rotavirus Vaccines Aged Out No longer eligible based on patient's age to complete this topic [place] [id number] 15:57:02 Diagnosis Pain in both hands - Primary Mechanical heart valve prese nt On warfarin therapy [place] [id number] 15:57:02 [place] 33075-08-21 14:56:27 Discussed with patient that he needs to discuss with provider who ordered prescriptions for clarification. [facility]ox[facility]unez [facility]7499[facility] 16:35:41 Patient will come in 11/17 Vanessa GuerreroSouthwest General Health CenterFephmn1344-98-11 14:07:41 Offer RTC this Thursday Thanks [facility] CenterRehlgf9262-01-23 12:08:46 Have addressed this with patient several times. Patient has been prescribed Alfuzosin and Tamsulosin by Dr. Kelsey. Patient brought both his bottles up the the clinic, this RN reviewed them, both medications are prescribed by Dr. Kelsey. At patient's only visit with MD Malone it was discussed that patient should continue his tamsulosin and if he were interested in surgical intervention for his issue Dr. Malone would follow him that care. Patient does not want surgery. Therefore, instructed patient to address his questions regarding Alfuzosin and Tamsulosin with the physician who ordered them OR he can make an appointment with Dr. Malone to get his opinion. Patient continues to insist that it would only take him a few minutes to talk with the physician to get the answers he needs. This RN reinforces the patient can discuss MD opinion of another physician's orders during a scheduled visit. Patient eventually verbalized understanding. Roxana Funez [place] 87939-08-14 16:21:08 I recommend one only , Tamsulosin, very similar increase risk of side effects [facility]2024-08-14 14:45:41 Patient states he has Tamsulosin 0.4mg tablet 2 PO bedtime, and Alfuzosin 10mg 1 tablet by mouth daily, both prescribed by Dr. Kelsey. Patient wanting physician's opinion on if he can take both or which one he should take? [place] [id number] 09:33:31 Pt is calling in again to see about this. Katarina TerrellKenneth [place] [id number] 16:05:10 Patient states he is taking FLOMAX 0.4 mg- Patient was prescribed ALFUZOSIN HCL Er 10mg tablet by Dr. Kelsey and would like confirmation if it is safe or helpful that he takes both medications at the same time. Please contact patient at [phone]. Rubia Vargas [facility]2024-07-29 12:17:37 Seven Diaz is a 73 year old male Pt said he had another missed call. Looks like he spoke with the nurse already this morning. He believes he didn't speak with Dr Malone's nurse. Please advise Ly Sultana [facility]chakaSouth[facility] Health CenterPwpsax9418-47-60 11:21:15 Spoke with patient, and Name verified, patient verbalizes and understand results denied further questions/concerns. Joselyn Pastor MASouthwest General Health CenterBpqwkk4028-70-17 16:19:52 Seven Diaz is a 73 year old male Pt is returning call to the clinic. Pt is asking for nurse to call him back Chelsea DengNovant Health Clemmons Medical CenterKnmsyk1768-25-03 14:32:18 Seven Diaz is a 73 year old male Pt is returning missed call from nurse. Thanks Nirmala ArnoldSouthwest General Health CenterFoxcwp1591-93-43 10:16:27 Patient returning clinical call, please call back judson . Rubia L [place] [id number] 08:41:35 Attempted to contact patient with no answer, Voicemail left at this time with clinic phone number and instructed patient to return call. Joselyn Pastor MASouthwest General Health CenterVnfpfc9295-61-85 15:41:24 Patient asking about medication intake for tamulosin 0.4mg - please advise. Patient requesting to leave a voicemail if patient doesn't answer. Rubia Vargas [place] 49875-03-22 10:31:13 We discussed this last encounter, high risk patient . Thanks [place] 715004-03-22 10:17:[address] Castillo office to check on status of clearance request. Patient told the nurse that he was not going to have the procedure and did not need the clearance completed. I requested office to send note stating that and have routed to provider as FYI. CHRISTAL DAVIDSON RN 06/19/2023 10:19 AM Christal Davidson [place] [id number] 13:33:58 Patient notified of results/recommendations, understanding was verbalized via teach back. Dimple Kyle [facility] HospitalIzedkp8026-06-88 13:11:52 Yes, he can Thanks [facility] CenterKuloyg0197-56-23 11:45:20 Seven Diaz is a 73 year old male Patient states he is taking Finasteride 5 mg once a day prescribed by an other provider and he does not believe he mentioned it to Dr. Malone yesterday. He wants to make sure it is ok to take with is other medications. Please advise and contact pt. Brianda McdonnellChel[place] 29048-03-15 14:11:32 Spoke with patient. He will keep CT appointment on 06/15/23. No further questions or issues at this time. [place] [id number] 14:54:36 Seven Diaz is a 73 year old male Pt calling back stating that he has an appt for 06/15/2023 at 11:30am, pt spoke with kathy and needs to have another pelvic order sent over Thank you Lis FrederickSouthwest General Health CenterChhgnu6840-97-94 14:30:30 Seven Diaz is a 73 year old male Patient is calling in regards to needing another order placed to get his CT scan done. Please advise and contact the patient at [phone] (home) Miri GauthierSouthwest General Health CenterMywypn8655-70-96 13:47:09 Images from the original note were not included. Patient notified of results/recommendations, understanding was verbalized via teach back. Dimple Kyle RNSouthwest General Health CenterDuoktr2251-58-83 11:38:00 Seven Diaz is a 72 year old male Calling to make sure of dosage and directions tamsulosin 0.4 mg 24 hr capsule. Patient is unsure how many to take at night. Please call. A Miranda [facility]2024-03-06 12:00:33 Cardiac clearance requested for pending prostate surgery. Patient on warfarin. Fax sent to Dr. Castillo at [facility], fax confirmation received. [facility]
[2024-07-07] MEDS ORDERED: droPERidol 5 MG/2 ML VIAL ONE (02:35)
[2024-07-07] MEDS ORDERED: ONDANSETRON 4 MG/2 ML VIAL ONE ×3 (02:35→12:46)
[2024-07-07] MEDS ORDERED: MORPHINE 4 MG/ML SYR ONE ×2 (02:36→04:10)
[2024-07-07] MEDS ORDERED: NA CHLORIDE 0.9% 500 ML ONE (02:36)
[2024-07-07 02:41] LABS: Absolute Lymphocytes (CBC) 1.9 K/uL (0.7-4.9); Absolute Monocytes 0.9 K/uL (0.1-1.3); Absolute Neutrophil 5.3 K/uL (1.8-8.0); Basophils % 0.2 % (0-1.3); Eosinophils % 0.6 % (0-4.4); Hematocrit 35.1 % (39.6-49.0); Hemoglobin 11.9 g/dL (13.6-17.9); Lymphocytes % 23.1 % (15.3-44.8); MCH 32.6 pg (27.0-35.0); MCHC 33.8 g/dL (32.0-36.0); MCV 96.7 fL (80-100); MPV 7.2 fL (7.6-11.3); Monocytes % 10.7 % (3.3-12.3); Neutrophils % 65.4 % (41.7-73.7); Nucleated Red Blood Cells % 0.1 % (0-0); Platelets 257 thou/uL (152-406); RBC Red Blood Cell Count 3.63 M/uL (4.33-5.43); Red Cell Distribution Width 13.3 % (12.1-15.2)
[2024-07-07 02:59] LABS: PT Prothrombin Time 20.6 SECONDS (10-13.0); Protime INR 1.86
[2024-07-07 03:14] LABS: Albumin 3.8 g/dL (3.4-5.0); Albumin/Globulin Ratio 1.3 (1.1-1.8); Anion Gap 9.6 mEq/L (5.0-15.0); Bilirubin Direct 0.2 mg/dL (0-0.2); Bilirubin Indirect, Calculated 0.5 mg/dL (0.2-0.8); Bilirubin Total 0.7 mg/dL (0.2-1.0); Potassium 3.6 mEq/L (3.5-5.1); Protein, Total 6.8 g/dL (6.4-8.2); Troponin High Sensitivity 15.4 pg/mL (<58.9)
[2024-07-07 05:07] LABS: Specific Gravity > 1.030 (1.005-1.030); Sqamous Epithelial <5 /HPF (None Seen); Transitional Epithelial <5 /HPF (None Seen); Urine Bacteria <20 /HPF (<20); Urine Bilirubin NEGATIVE (Negative); Urine Blood Negative (Negative); Urine Clarity Clear (Clear); Urine Color Light-Yellow (Yellow); Urine Culture Reflex Order NOT NEEDED; Urine Glucose NEGATIVE (Negative); Urine Ketones NEGATIVE (Negative); Urine Micro Reflex YN NO BILL MICROSCOPIC; Urine Mucus Slight /HPF (None Seen); Urine Nitrite NEGATIVE (Negative); Urine Protein TRACE (Negative); Urine RBC None Seen /HPF (None Seen); Urine Sperm Present (None Seen); Urine Urobilinogen 1+ (Normal); Urine WBC <5 /HPF (<5); Urine Yeast (Budding) Occasional /HPF (None Seen); Urine Yeast with Hyphae Trace /HPF (None Seen); Urine pH 6.5 (5.0-7.0)
--- NOTE | 2024-07-07 06:11 | RAD REPORT ---
CT ABDOMEN PELVIS WITH IV CONTRAST CLINICAL INDICATION: Abdominal pain. COMPARISON: CT chest abdomen pelvis 12/28/2022 TECHNIQUE: CT images of the abdomen and pelvis obtained following administration of intravenous contr ast. Multiplanar reformats were provided. Dose-optimization techniques such as automated exposure control, iterative reconstruction, and mA and/or kV adjustment for patient size was utilized for this examination. FINDINGS: LOWER CHEST: Unremarkable. LIVER: Unremarkable. BILIARY: Status post cholecystectomy with surgical clips at gallbladder fossa. No significant intra- or extrahepatic biliary ductal dilatation. PANCREAS: Unremarkable. SPLEEN: Unremarkable. ADRENALS: Unremarkable. KIDNEYS/URETERS: No nephrolithiasis or hydronephrosis. No suspicious lesion. Stable several small Hira niak 1 cysts in both kidneys; no follow-up imaging is recommended. Nonspecific mild perinephric stranding, likely senescent. STOMACH: Unremarkable. BOWEL: Unremarkable. APPENDIX: Normal. MESENTERY/PERITONEUM: Mild stranding and trace fluid in extraperitoneal cavity in anterior right pelv is, suspicious for small hemorrhage. No intraperitoneal fluid or hemorrhage. No pneumoperitoneum. RETROPERITONEUM: No adenopathy. URINARY BLADDER: Unremarkable. REPRODUCTIVE: Unremarkable. VASCULAR: No aortic aneurysm. Mild atherosclerotic calcifications of the abdominal and pelvic vascu lature. ABDOMINAL/PELVIC WALL: Abnormal diffuse thickening of right rectus abdominis muscle with several scat tered foci of hyperintensity, concerning for intramuscular hematoma with areas of active bleeding. Mild subcutaneous soft tissue infiltration in right anterior abdominal wall, possibly posttraumatic. Stable focal deficiency in right upper abdominal wall. BONES: No acute or significant abnormality. IMPRESSION: 1. Abnormal diffuse thickening of right rectus abdominis muscle with several scattered foci of hype rintensity, concerning for intramuscular hematoma with areas of active bleeding. 2. Mild stranding and trace fluid in extraperitoneal cavity in anterior right pelvis, suspicious fo r small hemorrhage. Electronically signed by: Penny Mera MD 07/07/2024 05:48 AM CDT Due to temporary technical issues with the PACS/ITS Compliance reporting system, reports are being anusha d by the in-house radiologist without review as a courtesy to ensure prompt reporting the interpreting radiologist is fully responsible for the content of the report. Transcribed Date/Time: 07/07/2024 6:11 AM
--- NOTE | 2024-07-07 06:30 | ER ---
Nurse's Notes [facility] Name: Abdirizak Diaz Age: 74 yrs Sex: Male : 1950 Arrival Date: 07/07/2024 Time: 01:41 Bed 18 Private MD: Diagnosis: Abdominal tenderness;Postprocedural hematoma of a musculoskeletal structure following other procedure;Adverse effect of anticoagulants Presentation: 07/07 01:47 Chief complaint: Patient states: right sided abd pain post left eye sx. bm8 01:47 Coronavirus screen: At this time, the client does not indicate any symptoms associated bm8 with coronavirus-19. Ebola Screen: Patient negative for fever greater than or equal to 101.5 degrees Fahrenheit, and additional compatible Ebola Virus Disease symptoms Patient denies exposure to infectious person. Patient denies travel to an Ebola-affected area in the 21 days before illness onset. No symptoms or risks identified at this time. Initial Sepsis Screen: Does the patient meet any 2 criteria? No. Patient's initial sepsis screen is negative. Does the patient have a suspected source of infection? No. Patient's initial sepsis screen is negative. Risk Assessment: Do you want to hurt yourself or someone else? Patient reports no desire to harm self or others. Onset of symptoms was July 07, 2024 at 01:00. 01:47 Method Of Arrival: Wheelchair bm8 01:47 Acuity: ERIBERTO 3 bm8 Triage Assessment: 01:47 General: Appears in no apparent distress. comfortable, Behavior is calm, cooperative, bm8 appropriate for age. 01:47 Pain: Complains of pain in right upper quadrant and right lower quadrant Pain currently bm8 is 10 out of 10 on a pain scale. EENT: No deficits noted. No signs and/or symptoms were reported regarding the EENT system. Neuro: No deficits noted. Level of Consciousness is awake, alert, obeys commands, Oriented to person, place, time, situation, Appropriate for age. Cardiovascular: No deficits noted. Respiratory: No deficits noted. GI: Abdomen is round distended, only on right side Bowel sounds present X 4 quads. Abdomen is tender to palpation in right upper quadrant and right lower quadrant Abd is rigid in right upper quadrant and right lower quadrant Guarding noted in right upper quadrant and right lower quadrant Reports lower abdominal pain, upper abdominal pain, Pain is 10 out of 10 on a pain scale. : No signs and/or symptoms were reported regarding the genitourinary system. Derm: No signs and/or symptoms reported regarding the dermatologic system. Musculoskeletal: No signs and/or symptoms reported regarding the musculoskeletal system. Historical: - Allergies: 02:09 Aspirin; bm8 02:09 Keppra; bm8 - Home Meds: 02:09 atorvastatin 40 mg Oral tab 1 tab once daily [Active]; lamotrigine 150 mg Oral tab 1 bm8 tab once daily [Active]; Levothroid 100 mcg Oral tab 1 tab once daily [Active]; levothyroxine 75 mcg cap 1 cap once daily [Active]; loratadine 10 mg Oral cap [Active]; valsartan 80 mg Oral tab 1 tab once daily [Active]; Vimpat 50 mg Oral tab 1 tab 2 times per day [Active]; - PMHx: 02:09 Hypercholesterolemia; Hypothyroidism; bm8 - PSHx: 02:09 Cholecystectomy; mechanical valve; bm8 - Immunization history:: Adult Immunizations up to date. - Infectious Disease History:: Denies. - Social history:: Smoking status: Patient denies any tobacco usage or history of. Screenin:12 [facility] ED Fall Risk Assessment (Adult) History of falling in the last 3 months, bm8 including since admission No falls in past 3 months (0 pts) Confusion or Disorientation No (0 pts) Intoxicated or Sedated No (0 pts) Impaired Gait Yes (1 pt) Mobility Assist Device Used Yes (1 pt) Altered Elimination No (0 pt) Score/Fall Risk Level 3 or more points = High Risk Oriented to surroundings, Maintained a safe environment, Educated pt \\T\\ family on fall prevention, incl call for assistance when getting out of bed, Assessed \\T\\ reinforced patient's understanding of fall precautions, Hourly rounding (assess needs \\T\\ fall precautionary measures) done, Used ambulatory aids as needed (educated on \\T\\ assisted with), Used gait belt as appropriate. Abuse screen: Denies threats or abuse. Nutritional screening: No deficits noted. Tuberculosis screening: No symptoms or risk factors identified. Assessment: 02:12 Reassessment: see triage assessment. bm8 02:46 Reassessment: Patient appears in no apparent distress at this time. No changes from bm8 previously documented assessment. Patient and/or family updated on plan of care and expected duration. Pain level reassessed. Patient is alert, oriented x 3, equal unlabored respirations, skin warm/dry/pink. 03:56 Reassessment: Patient appears in no apparent distress at this time. Patient and/or bm8 family updated on plan of care and expected duration. Pain level reassessed. Patient is alert, oriented x 3, equal unlabored respirations, skin warm/dry/pink. General: Appears in no apparent distress. uncomfortable, Behavior is calm, appropriate for age. Pain: Complains of pain in abdomen and right lower quadrant and right upper quadrant Pain currently is 8 out of 10 on a pain scale. 06:24 Reassessment: Patient appears in no apparent distress at this time. Patient and/or bm8 family updated on plan of care and expected duration. Pain level reassessed. Patient is alert, oriented x 3, equal unlabored respirations, skin warm/dry/pink. Patient states feeling better. 08:00 Reassessment: Pt sleeping, equal and unlabored respirations. . aa5 08:15 Reassessment: Patient is alert, oriented x 3, equal unlabored respirations, skin aa5 warm/dry/pink. Awaiting transfer, pt aware. . 08:15 GI: Swelling to right side of abdomen, small purple bruising noted to RUQ and small aa5 greenish bruising noted to RLQ. Eye patch noted to left eye, status post left eye cataract sx. 09:30 Reassessment: Pt sleeping. . aa5 11:00 Reassessment: Patient is alert, oriented x 3, equal unlabored respirations, skin aa5 warm/dry/pink. Pt removed left eye patch, pt states "the doctor said I could take it off today". 11:00 General: Appears comfortable. aa5 11:55 Reassessment: Report given to nurse Jenelle at [facility], Room 411. Awaiting aa5 EMS for transfer, pt aware. . Vital Signs: 01:47 BP 178 / 80; Pulse 68; Resp 17; Temp 98.1; Pulse Ox 96% ; Weight 99.79 kg; Height 5 ft. bm8 8 in. ; Pain 10/10; 02:46 BP 146 / 73; Pulse 68; Resp 18; Temp 98.1; Pulse Ox 98% ; Pain 10/10; bm8 03:56 BP 119 / 61; Pulse 66; Resp 17; Temp 98.1; Pulse Ox 98% ; Pain 8/10; bm8 06:24 BP 116 / 67; Pulse 62; Resp 18; Temp 98.1; Pulse Ox 99% ; Pain 4/10; bm8 08:15 BP 110 / 61; Pulse 75; Resp 18 S; Temp 97.9(O); Pulse Ox 100% on R/A; aa5 11:00 BP 92 / 58; Pulse 76; Resp 16 S; Pulse Ox 100% on R/A; aa5 11:45 BP 94 / 55; Pulse 75; Resp 16 S; Pulse Ox 97% on R/A; aa5 12:50 BP 106 / 61; Pulse 69; Resp 18; Pulse Ox 98% on R/A; jb4 01:47 Body Mass Index 33.45 (99.79 kg, 172.72 cm) bm8 01:47 Pain Scale: Adult bm8 02:46 Pain Scale: Adult bm8 03:56 Pain Scale: Adult bm8 06:24 Pain Scale: Adult bm8 Kristy Coma Score: 02:12 Eye Response: spontaneous(4). Motor Response: obeys commands(6). Verbal Response: bm8 oriented(5). Total: 15. 02:46 Eye Response: spontaneous(4). Motor Response: obeys commands(6). Verbal Response: bm8 oriented(5). Total: 15. 03:56 Eye Response: spontaneous(4). Motor Response: obeys commands(6). Verbal Response: bm8 oriented(5). Total: 15. 06:24 Eye Response: spontaneous(4). Motor Response: obeys commands(6). Verbal Response: bm8 oriented(5). Total: 15. 06:30 Eye Response: spontaneous(4). Motor Response: obeys commands(6). Verbal Response: sp4 oriented(5). Total: 15. ED Course: 01:43 Patient arrived in ED. jj6 01:47 Arm band placed on right wrist. bm8 01:57 Missed attempt(s): 20 gauge in right in left antecubital area. Bleeding controlled, rk3 band aid applied, catheter tip intact. 02:07 Russ Villatoro, RN is Primary Nurse. bm8 02:09 Triage completed. bm8 02:12 No provider procedures requiring assistance completed. Inserted saline lock: 18 gauge bm8 in right antecubital area, using aseptic technique. Blood collected. Flushed with 10 mL NS. 02:12 Patient has correct armband on for positive identification. Bed in low position. Call bm8 light in reach. Side rails up X2. Adult w/ patient. Client placed on continuous cardiac and pulse oximetry monitoring. NIBP monitoring applied. Pulse ox on. NIBP on. Door closed. Noise minimized. Verbal reassurance given. Head of bed elevated. 02:13 Rajan Lius MD is Attending Physician. sp4 03:39 CT Abd/Pelvis - IV Contrast Only In Process Unspecified. EDMS 06:24 Patient admitted, IV remains in place. bm8 06:24 Provided Education on: need for admission. bm8 06:29 Bg Oseguera MD is Hospitalizing Provider. sp4 07:29 initiated transfer with Shirlene at [facility]. bc6 08:03 Attending Physician role handed off by Rajan Luis MD katina 08:03 Italo Chowdary MD is Attending Physician. katina 08:43 doc to doc. bc6 09:46 Marjorie with [facility] informed there was a delay on beds. bc6 10:42 [facility] denied due to capacity. bc6 10:45 Spoke with Ishmael at the [facility] and informed him we would like to try bc6 the [facility]. 11:30 acceptance received for [facility] [id number] with Dr Franco. bc6 12:15 [facility] accepted transfer. bc6 Administered Medications: 02:45 Drug: NS 0.9% IV 500 ml 500 ml IV at 1 bolus once; to be given as a bolus over 30 bm8 minutes Volume: 500 ml; Route: IV; Rate: 1 bolus; Site: right antecubital; 03:58 Follow up: Response: No adverse reaction; IV Status: Completed infusion bm8 02:45 Drug: morphine IVP or IV 4 mg IVP once over 4 mins Route: IVP; Infused Over: 4 mins; bm8 Site: right antecubital; 03:58 Follow up: Response: No adverse reaction bm8 02:45 Drug: Ondansetron IVP 4 mg IVP once; over 2 minutes Route: IVP; Site: right antecubital;bm8 03:58 Follow up: Response: No adverse reaction bm8 02:45 Drug: Droperidol IVP 1.25 mg IVP once Route: IVP; Site: right antecubital; bm8 03:58 Follow up: Response: No adverse reaction bm8 04:14 Drug: morphine IVP or IV 4 mg IVP once over 4 mins Route: IVP; Infused Over: 4 mins; bm8 Site: right antecubital; 05:23 Follow up: Response: No adverse reaction bm8 04:14 Drug: Ondansetron IVP 4 mg IVP once; over 2 minutes Route: IVP; Site: right antecubital;bm8 05:22 Follow up: Response: No adverse reaction bm8 12:50 Drug: fentaNYL (PF) 50 mcg IVP once Route: IVP; Site: right antecubital; jb4 12:51 Follow up: Response: Medication Administered at Departure jb4 12:51 Drug: Zofran (Ondansetron) 4 mg IVP once; over 2 minutes Route: IVP; Site: right jb4 antecubital; 12:51 Follow up: Response: Medication Administered at Departure jb4 Medication: 02:12 VIS not applicable for this client. bm8 Outcome: 06:30 Decision to Hospitalize by Provider. sp4 07:28 ER care complete, transfer ordered by . katina 12:42 Patient left the ED. ll1 12:48 Patient left the ED. 12:52 Transferred by ground EMS to [facility], Transfer form completed. jb4 X-rays sent w/ patient. 12:52 Condition: stable 12:52 Discharge instructions given to family, Instructed on the need for transfer, Demonstrated understanding of instructions, Signatures: Dispatcher [employer] EDMS Italo Cohwdary MD MD cha Williams, Irene RN CARMEN iw Chantal Fuentes RN RN Thony Ocasio RN RN jb4 Max Wang RN RN ll1 Tamanna Petty jj6 Trista Wang Sergey, MD MD sp4 Russ Villatoro RN RN bm8 Karim, Rozana rk3
--- NOTE | 2024-07-07 06:30 | EDPHYS ---
Physician Documentation [facility] Name: Abdirizak Diaz Age: 74 yrs Sex: Male : 1950 Arrival Date: 07/07/2024 Time: 01:41 Bed 18 Private MD: YAZMIN Physician Italo Chowdary HPI: 07/07 02:13 This 74 yrs old Male presents to ER via Wheelchair with complaints of sp4 Abdominal Pain. 06:33 75-year-old male with history of aortic valve replacement on chronic anticoagulation sp4 with Coumadin presents today with moderate right-sided abdominal pain and swelling. Patient states0 he developed knots to the right abdominal wall after Lovenox injections. On 07/06/2024 patient had left eye cataract surgery by Dr. Melgar in [place]. He is now complaining of right lower quadrant abdominal pain and swelling at the site of Lovenox injections. Patient also has history of epilepsy takes Lamictal and Vimpat additional medications include a sorbic acid, cholecalciferol, cyanocobalamin, loratadine, simvastatin, co-Q10, and warfarin 5 mg p.o. daily. Historical: - Allergies: 02:09 Aspirin; bm8 02:09 Keppra; bm8 - Home Meds: 02:09 atorvastatin 40 mg Oral tab 1 tab once daily [Active]; lamotrigine 150 mg Oral tab 1 bm8 tab once daily [Active]; Levothroid 100 mcg Oral tab 1 tab once daily [Active]; levothyroxine 75 mcg cap 1 cap once daily [Active]; loratadine 10 mg Oral cap [Active]; valsartan 80 mg Oral tab 1 tab once daily [Active]; Vimpat 50 mg Oral tab 1 tab 2 times per day [Active]; - PMHx: 02:09 Hypercholesterolemia; Hypothyroidism; bm8 - PSHx: 02:09 Cholecystectomy; mechanical valve; bm8 - Immunization history:: Adult Immunizations up to date. - Infectious Disease History:: Denies. - Social history:: Smoking status: Patient denies any tobacco usage or history of. ROS: 06:34 Constitutional: Negative for fever, chills, and weight loss, positive for right sided sp4 abdominal pain swelling and tenderness. 06:34 All other systems are negative, Exam: 06:30 Constitutional: This is a well developed, well nourished patient who is awake, alert, sp4 and in no acute distress. Head/Face: Normocephalic, atraumatic. Eyes: Pupils equal round and reactive to light, extra-ocular motions intact. Lids and lashes normal. Conjunctiva and sclera are not injected. Cornea within normal limits. Periorbital areas with no swelling, redness, or edema. ENT: Nares patent. No nasal discharge, no septal abnormalities noted. Tympanic membranes are normal and external auditory canals are clear. Oropharynx with no redness, swelling, or masses, exudates, or evidence of obstruction, uvula midline. Mucous membranes moist. Neck: Trachea midline, no thyromegaly or masses palpated, and no cervical lymphadenopathy. Supple, full range of motion without nuchal rigidity, or vertebral point tenderness. Chest/axilla: Normal chest wall appearance and motion. Nontender with no deformity. No lesions are appreciated. Cardiovascular: Regular rate and rhythm with a normal S1 and S2. No gallops, murmurs, or rubs. Normal PMI, no JVD. No pulse deficits. Respiratory: Lungs have equal breath sounds bilaterally, clear to auscultation and percussion. No rales, rhonchi or wheezes noted. No increased work of breathing, no retractions or nasal flaring. Abdomen/GI: Soft, with normal bowel sounds. No distension or tympany. No guarding or rebound. Positive right rectus right-sided abdominal tenderness associated with moderate swelling. Back: No spinal tenderness. No costovertebral tenderness. Skin: Warm, dry with normal turgor. Normal color with no rashes, no lesions, and no evidence of cellulitis. MS/ Extremity: Pulses equal, no cyanosis. Neurovascular intact. Full, normal range of motion. Neuro: Awake and alert, GCS 15, oriented to person, place, time, and situation. Cranial nerves II-XII grossly intact. Motor strength 5/5 in all extremities. Sensory grossly intact. Psych: Awake, alert, with orientation to person, place and time. Behavior, mood, and affect are within normal limits 06:30 ECG was reviewed by the Attending Physician. 0-50 EKG at 0 250 Vital Signs: 01:47 BP 178 / 80; Pulse 68; Resp 17; Temp 98.1; Pulse Ox 96% ; Weight 99.79 kg; Height 5 ft. bm8 8 in. ; Pain 10/10; 02:46 BP 146 / 73; Pulse 68; Resp 18; Temp 98.1; Pulse Ox 98% ; Pain 10/10; bm8 03:56 BP 119 / 61; Pulse 66; Resp 17; Temp 98.1; Pulse Ox 98% ; Pain 8/10; bm8 06:24 BP 116 / 67; Pulse 62; Resp 18; Temp 98.1; Pulse Ox 99% ; Pain 4/10; bm8 08:15 BP 110 / 61; Pulse 75; Resp 18 S; Temp 97.9(O); Pulse Ox 100% on R/A; aa5 11:00 BP 92 / 58; Pulse 76; Resp 16 S; Pulse Ox 100% on R/A; aa5 11:45 BP 94 / 55; Pulse 75; Resp 16 S; Pulse Ox 97% on R/A; aa5 12:50 BP 106 / 61; Pulse 69; Resp 18; Pulse Ox 98% on R/A; jb4 01:47 Body Mass Index 33.45 (99.79 kg, 172.72 cm) bm8 01:47 Pain Scale: Adult bm8 02:46 Pain Scale: Adult bm8 03:56 Pain Scale: Adult bm8 06:24 Pain Scale: Adult bm8 Erie Coma Score: 02:12 Eye Response: spontaneous(4). Motor Response: obeys commands(6). Verbal Response: bm8 oriented(5). Total: 15. 02:46 Eye Response: spontaneous(4). Motor Response: obeys commands(6). Verbal Response: bm8 oriented(5). Total: 15. 03:56 Eye Response: spontaneous(4). Motor Response: obeys commands(6). Verbal Response: bm8 oriented(5). Total: 15. 06:24 Eye Response: spontaneous(4). Motor Response: obeys commands(6). Verbal Response: bm8 oriented(5). Total: 15. 06:30 Eye Response: spontaneous(4). Motor Response: obeys commands(6). Verbal Response: sp4 oriented(5). Total: 15. MDM: 02:22 Medical Screening Exam initiated sp4 06:27 ED course: CLINICAL INDICATION: Abdominal pain. COMPARISON: CT chest abdomen pelvis sp4 12/28/2022 TECHNIQUE: CT images of the abdomen and pelvis obtained following administration of intravenous contrast. Multiplanar reformats were provided. Dose-optimization techniques such as automated exposure control, iterative reconstruction, and mA and/or kV adjustment for patient size was utilized for this examination. FINDINGS: LOWER CHEST: Unremarkable. LIVER: Unremarkable. BILIARY: Status post cholecystectomy with surgical clips at gallbladder fossa. No significant intra- or extrahepatic biliary ductal dilatation. PANCREAS: Unremarkable. SPLEEN: Unremarkable. ADRENALS: Unremarkable. KIDNEYS/URETERS: No nephrolithiasis or hydronephrosis. No suspicious lesion. Stable several small Bosniak 1 cysts in both kidneys; no follow-up imaging is recommended. Nonspecific mild perinephric stranding, likely senescent. STOMACH: Unremarkable. BOWEL: Unremarkable. APPENDIX: Normal. MESENTERY/PERITONEUM: Mild stranding and trace fluid in extraperitoneal cavity in anterior right pelvis, suspicious for small hemorrhage. No intraperitoneal fluid or hemorrhage. No pneumoperitoneum. RETROPERITONEUM: No adenopathy. URINARYBLADDER: Unremarkable. REPRODUCTIVE: Unremarkable. VASCULAR: No aortic aneurysm. Mild atherosclerotic calcifications of the abdominal and pelvic vasculature. ABDOMINAL/PELVIC WALL: Abnormal diffuse thickening of right rectus abdominis muscle with several scattered foci of hyperintensity, concerning for intramuscular hematoma with areas of active bleeding. Mild subcutaneous soft tissue infiltration in right anterior abdominal wall, possibly posttraumatic. Stable focal deficiency in right upper abdominal wall. BONES: No acute or significant abnormality. IMPRESSION: 1. Abnormal diffuse thickening of right rectus abdominis muscle with several scattered foci of hyperintensity, concerning for intramuscular hematoma with areas of active bleeding. 2. Mild stranding and trace fluid in extraperitoneal cavity in anterior right pelvis, suspicious for small hemorrhage. Electronically signed by: Penny Mera MD 07/07/2024 05:48 AM. 06:36 Differential diagnosis: Cholelithiasis, diverticulitis, gastritis, GI Bleed, Hepatitis, sp4 Irritable bowel syndrome. Data reviewed: vital signs, nurses notes, lab test result(s), EKG, radiologic studies, CT scan. Consideration of Admission/Observation Escalation of care including admission/observation considered. Management of patient was discussed with the following: Hospitalist: Admit Team . Financial [employer]ations Representative: Ana Rosa WESTON, Aidee WESTON , Samuel WESTON . ED course: Patient stable for admission.. 07/07 02:14 Order name: Basic Metabolic Panel; Complete Time: 04:53 sp4 07/07 02:14 Order name: CBC with Diff; Complete Time: 04:53 4 07/07 02:14 Order name: LFT's; Complete Time: 04:53 4 07/07 02:14 Order name: NT PRO-BNP; Complete Time: 04:53 sp4 07/07 02:14 Order name: PT-INR; Complete Time: 04:53 4 07/07 02:14 Order name: Troponin HS; Complete Time: 04:53 4 07/07 02:14 Order name: Lipase; Complete Time: 04:53 sp4 07/07 02:14 Order name: Urinalysis W/Microscopic; Complete Time: 06:06 4 07/07 02:22 Order name: CT Abd/Pelvis - IV Contrast Only 07/07 02:14 Order name: EKG; Complete Time: 02:15 4 07/07 02:14 Order name: EKG - Nurse/Tech; Complete Time: 02:51 4 07/07 02:14 Order name: IV Saline Lock; Complete Time: 02:46 4 07/07 02:14 Order name: Labs collected and sent; Complete Time: 02:46 4 07/07 02:14 Order name: O2 Per Protocol; Complete Time: 02:46 4 07/07 02:14 Order name: O2 Sat Monitoring; Complete Time: 02:46 4 07/07 11:27 Order name: Misc. Order: sebas around abdominal wall; Complete Time: 12:50 katina EC:50 Rate is 65 beats/min. Rhythm is regular, Normal Sinus Rhythm. QRS [place] is Normal. MT sp4 interval is normal. QRS interval is normal. QT interval is normal. No Q waves. T waves are Normal. No ST changes noted. Clinical impression: No evidence of ischemia. Interpreted by me. Reviewed by me. Administered Medications: 02:45 Drug: NS 0.9% IV 500 ml 500 ml IV at 1 bolus once; to be given as a bolus over 30 bm8 minutes Volume: 500 ml; Route: IV; Rate: 1 bolus; Site: right antecubital; 03:58 Follow up: Response: No adverse reaction; IV Status: Completed infusion bm8 02:45 Drug: morphine IVP or IV 4 mg IVP once over 4 mins Route: IVP; Infused Over: 4 mins; bm8 Site: right antecubital; 03:58 Follow up: Response: No adverse reaction bm8 02:45 Drug: Ondansetron IVP 4 mg IVP once; over 2 minutes Route: IVP; Site: right antecubital;bm8 03:58 Follow up: Response: No adverse reaction bm8 02:45 Drug: Droperidol IVP 1.25 mg IVP once Route: IVP; Site: right antecubital; bm8 03:58 Follow up: Response: No adverse reaction bm8 04:14 Drug: morphine IVP or IV 4 mg IVP once over 4 mins Route: IVP; Infused Over: 4 mins; bm8 Site: right antecubital; 05:23 Follow up: Response: No adverse reaction bm8 04:14 Drug: Ondansetron IVP 4 mg IVP once; over 2 minutes Route: IVP; Site: right antecubital;bm8 05:22 Follow up: Response: No adverse reaction bm8 12:50 Drug: fentaNYL (PF) 50 mcg IVP once Route: IVP; Site: right antecubital; jb4 12:51 Follow up: Response: Medication Administered at Departure jb4 12:51 Drug: Zofran (Ondansetron) 4 mg IVP once; over 2 minutes Route: IVP; Site: right jb4 antecubital; 12:51 Follow up: Response: Medication Administered at Departure jb4 Disposition Summary: 07/07/24 07:28 Transfer Ordered Notes: Transfer Location: [facility] katina Reason: Higher level of care katina Condition: Stable(07/07/24 07:28) katina Problem: new(07/07/24 07:28) katina Symptoms: have improved(07/07/24 07:28) katina Accepting Physician: to [facility](07/07/24 12:48) iw Diagnosis - Abdominal tenderness katina - Postprocedural hematoma of a musculoskeletal structure following other procedure katina - Adverse effect of anticoagulants katina Forms: - Medication Reconciliation Form katina - SBAR form katina Signatures: Dispatcher [employer] EDItalo Neri MD MD cha Williams, Irene, RN RN iw Antonio Garcia, ANNELISE-C WARD ATTENDANT-Cla1 Thony Mason RN RN jb4 Max Wang RN RN ll1 Misa Hernandez rv1 Rajan Luis MD MD sp4 Russ Villatoro, RN RN bm8 Corrections: (The following items were deleted from the chart) 02:15 02:14 BASIC METABOLIC PANEL+C.LAB.BRZ ordered. EDMS EDMS 02:15 02:14 CBC+H.LAB.BRZ ordered. EDMS EDMS 02:15 02:15 HEPATIC FUNCTION+C.LAB.BRZ ordered. EDMS EDMS 02:15 02:15 PROBNP+C.LAB.BRZ ordered. EDMS EDMS 02:15 02:15 PROTIME (+INR)+COAG.LAB.BRZ ordered. EDMS EDMS 02:15 02:15 Troponin High Sensitivity+C.LAB.BRZ ordered. EDMS EDMS 02:15 02:15 LIPASE+C.LAB.BRZ ordered. EDMS EDMS 02:15 02:15 Urinalysis W/Microscopic+U.LAB.BRZ ordered. EDMS EDMS 07:10 06:30 Telemetry/MedSurg (observation) sp4 rv1 07:10 06:30 sp4 rv1 07:21 06:30 Observation sp4 katina 07:21 06:30 Bg Oseguera sp4 katina 07:21 06:30 Stable sp4 katina 07:21 06:30 new sp4 katina 07:21 06:30 have improved sp4 katina 07:21 06:30 Standard sp4 katina 07:21 06:30 Acute right rectus abdominis intramuscular hematoma, acute bleeding secondary to katina Lovenox, acute right lower abdominal and pelvic intramuscular hematoma sp4 07:21 07:10 [facility] ER HOLD rv1 katina 07:21 07:10 ERHOLD- rv1 katina 12:42 07:28 to [facility] katina ll1 12:48 12:42 to [facility] ll1 iw
--- NOTE | 2024-07-07 09:07 | P.CNS ---
Date of Consult: 07/07/24 Reason for Consult: Eval for admission Requesting Physician: Rajan Luis Chief Complaint: abdominal pain History of Present Illness: 74-year-old male with history of mechanical aortic valve on chronic anticoagulation with warfarin, seizure disorder with recent left cataract surgery on 07/06/2024 presented to the emergency department with chief complaint of abdominal pain. His labs were significant for a hemoglobin of 11.9 hematocrit 35.1 INR of 1.86 PT of 20.[address] abdomen pelvis with IV contrast was performed which revealed abnormal diffuse thickening of the right rectus abdominis muscle with several scattered foci of hyperintensity concerning for intramuscular hematoma with areas of active bleeding. Mild stranding and trace fluid in the extraperitoneal cavity in the anterior right pelvis, suspicious for small hemorrhage. He recently had been on Lovenox in preparation for his cataract surgery. I discussed the case with general surgery and given the fact that the patient has a need for anticoagulation with his mechanical aortic valve and the ongoing active bleeding General Surgery does recommend patient transferred to tertiary center capable of evaluating with interventional radiology. Recommendation was discussed with the ER who plan on arranging for transfer to tertiary center. Allergies levetiracetam [From Kera] Allergy (Verified 01/10/18 06:11) doesnt work aspirin Adverse Reaction (Intermediate, Verified 01/10/18 06:11) TAKES COUMADIN Home Medications: Ascorbic Acid [Vitamin C] 1,000 mg PO DAILY 12/31/17 Cholecalciferol (Vitamin D3) [Vitamin D3] 2,000 unit PO DAILY 12/31/17 Codeine/APAP [Tylenol #3*] 1 tab PO Q6HP PRN 12/31/17 Cyanocobalamin [Vitamin B-12*] 3,000 mcg PO DAILY 12/31/17 Lacosamide [Vimpat] 200 mg PO BID 12/31/17 Loratadine [Claritin*] 10 mg PO DAILY 12/31/17 Ubidecarenone [Co Q-10] 200 mg PO DAILY 12/31/17 lamoTRIgine [Lamotrigine Odt] 200 mg PO BID 12/31/17 Atorvastatin Calcium 40 mg PO 02/05/21 Hydrocodone 7.5/APAP 325 [Girard 7.5/325 mg*] PRN 02/05/21 Levothyroxine [Synthroid] 75 mcg PO CONEK3SH 02/05/21 Valsartan 80 mg PO 02/05/21 Warfarin Sodium [Coumadin*] 2.5 mg PO DAILY 5 PM 02/05/21 - Past Medical/Surgical History Diabetic: No -: Hypertension -: Aortic valve replacement on Coumadin -: Hyperlipidemia -: Seizure disorder -: Hypothyroidism -: Hernia repair -: Aortic valve replacement Psychosocial/ Personal History: Patient is - Family History Mother Notes: no significant family history per pt - Social History Smoking Status: Unknown if ever smoked Alcohol use: No CD- Drugs: No Caffeine use: No Place of Residence: Home Review of Systems 10-point ROS is otherwise unremarkable Gastrointestinal: Abdominal Pain Physical Examination General: Alert, In no apparent distress, Oriented x3 HEENT: Other (left eye patch in place from recent catarct surgery) Neck: Supple, 2+ carotid pulse no bruit, No LAD Respiratory: Clear to auscultation bilaterally, Normal air movement Cardiovascular: Regular rate/rhythm, Normal S1 S2 Gastrointestinal: Normal bowel sounds, Tenderness (Right mid abdominal tenderness/swelling) Musculoskeletal: No tenderness Integumentary: No rashes Neurological: Normal gait, Normal speech, Normal tone, Normal affect Laboratory Data (last 24 hrs) 07/07/24 07/07/24 07/07/24 02:24 02:24 02:24 WBC 8.20 Hgb 11.9 L Hct 35.1 L Plt Count 257 PT 20.6 H INR 1.86 Sodium 141 Potassium 3.6 BUN 26 H Creatinine 1.28 Glucose 105 Total Bilirubin 0.7 AST 48 H ALT 41 Alkaline Phosphatase 31 L Lipase 47 Conclusions/Impression: Problem list Rectus sheath hematoma with active bleeding History of aortic valve replacementmechanical on chronic anticoagulation with warfarin/Lovenox currently Seizure disorder Plan 74-year-old male with history of mechanical aortic valve on chronic anticoagulation with warfarin, seizure disorder with recent left cataract surgery on 07/06/2024 presented to the emergency department with chief complaint of abdominal pain. His labs were significant for a hemoglobin of 11.9 hematocrit 35.1 INR of 1.86 PT of 20.[address] abdomen pelvis with IV contrast was performed which revealed abnormal diffuse thickening of the right rectus abdominis muscle with several scattered foci of hyperintensity concerning for intramuscular hematoma with areas of active bleeding. Mild stranding and trace fluid in the extraperitoneal cavity in the anterior right pelvis, suspicious for small hemorrhage. He recently had been on Lovenox in preparation for his cataract surgery. I discussed the case with general surgery and given the fact that the patient has a need for anticoagulation with his mechanical aortic valve and the ongoing active bleeding General Surgery does recommend patient transferred to tertiary center capable of evaluating with interventional radiology. Recommendation was discussed with the ER who plan on arranging for transfer to tertiary center. Time Spent Managing Pts care (In Minutes): 60
--- NOTE | 2024-07-07 11:44 | EKG ---
Test Date: 2024-07-07 Test Time: 02:50:29 Scrap Baller: MERY MEASUREMENT RESULTS: Intervals: Rate: 65 WI: 190 QRSD: 116 QT: 446 QTc: 463 Castell: P: 58 WI: 190 QRS: -29 T: 46 INTERPRETIVE STATEMENTS: Normal sinus rhythm Left ventricular hypertrophy with QRS widening Abnormal ECG Compared to ECG 12/28/2022 09:03:14 Left ventricular hypertrophy now present Electronically Signed On 07-07-24 11:44:06 CDT by Miguelito Baker
[2024-07-07] MEDS ORDERED: FENTANYL CITR 100 MCG/2 ML ONE (12:46)
[2024-07-07 12:54] VITALS: TEMP 97.9
[2024-07-07 12:56] VITALS: BP 94/55; O2SAT 97
== END 2024-07-07 12:48 | disposition short-term general hospital (02) ==
LOC: ER 01:41
DX: M96.841 Postprocedural hematoma of a musculoskeletal structure following other procedure (principal); T45.515A Adverse effect of anticoagulants, initial encounter; E78.00 Pure hypercholesterolemia, unspecified; E03.9 Hypothyroidism, unspecified; Z95.2 Presence of prosthetic heart valve
CPT/HCPCS: 96361; 93005; 85025; 81001; 80048; 36415; 85610; 80076; 84484; 83690; 83880; 74177; 96375; 96374; 99285; Q9967; J3010; J2405 ×3; J1790; J7040